=== PATIENT | male | born 1965 | race Caucasian/White ===

== ENCOUNTER 2021-12-30 10:30 | Inpatient (IN) ==
[2021-12-30] MEDS ORDERED: IOPAMIDOL 100 ML BOTTLE IV ONE (10:31)
[2021-12-30] MEDS ORDERED: IPRATROPIUM/ALBUTEROL 3 ML AMPUL.NEB NEB ONE ×3 (10:43→19:31)
--- NOTE | 2021-12-30 10:44 | Emergency Department Note ---
HPI General Chief complaint: Shortness of Breath/Dyspnea Stated complaint: shortness of breath Time Seen by Provider: 12/30/21 10:31 Source: EMS Mode of arrival: EMS Limitations: no limitations History of Present Illness HPI Narrative: Narrative: Patient is a 56-year-old male with a past medical history significant for COPD, pulmonary fibrosis who presents to the emergency department due to shortness of breath. EMS states that patient became acutely short of breath and increased baseline oxygen from 4 L to 8 L at home prior to calling for EMS. Upon their arrival patient was satting at 48% on 8 L of O2 via nasal cannula. Patient was tachypneic, tachycardic, and had an increased work of breathing. They gave patient a DuoNeb and Solu-Medrol prior to arrival. They also placed noninvasive positive pressure ventilation. Patient had significant improvement per EMS with these measures with decrease in respiratory rate and work of breathing, as well as increase in O2 sats to the 90s and up to 100% at times. Patient at this time endorses shortness of breath, but states that this has improved. He states that his had a sinus infection that he is worried that she passed to him. He denies any other symptoms currently. Related Data Home Medications Medication Instructions Recorded Confirmed cetirizine 10 mg capsule 10 mg PO QDAY 08/05/19 12/30/21 diphenhydramine HCl 25 mg tablet 25 mg PO QHS PRN Allergy Symptoms 12/05/21 12/30/21 (Benadryl Allergy) Previous Rx's Medication Instructions Recorded omeprazole 40 mg capsule,delayed 40 mg PO QDAY #90 caps 12/10/21 release umeclidinium 62.5 mcg-vilanterol 1 inh inhalation Q24H #60 ea 12/10/21 25 mcg/actuation powdr for inhalation (Anoro Ellipta) Allergies Allergy/AdvReac Type Severity Reaction Status Date / Time naproxen AdvReac Intermediate purple Verified 12/20/21 13:57 spots on face Review of Systems ROS ROS Narrative: Narrative: Limitations: ROS unobtainable due to patients medical condition [facility] Narrative Patient History Narrative: Narrative: Medical/Surgical/Family History All Active Problems (Updated 12/20/21 @ 14:53 by HAILEE Multani) H/O malignant neoplasm of colon (Chronic) Pulmonary fibrosis determined by high resolution computed tomography (Chronic) GERD with esophagitis (Chronic) Rico esophagus (Chronic) Bronchiectasis (Chronic) Hypoxemia (Chronic) Walking pneumonia (Chronic) SOB (shortness of breath) (Chronic) Tubulovillous adenoma (Chronic) Colon cancer (Chronic ~07/2014) Iron deficiency anemia (Chronic) Sinus congestion (Chronic) SOB (shortness of breath) on exertion (Chronic) COPD (chronic obstructive pulmonary disease) (Chronic) Eczema (Chronic) Elevated BP without diagnosis of hypertension (Chronic) Seasonal allergies (Chronic) Oxygen desaturation (Chronic) COVID-19 (Acute) Pneumonia due to COVID-19 virus (Acute) LLL pneumonia (Chronic) Medical History (Updated 12/20/21 @ 14:53 by HAILEE Multani) Rico esophagus Bronchiectasis Colon cancer (~07/2014) history of tubulovillous adenoma and colon carcinoma , removed 07/2014 COPD (chronic obstructive pulmonary disease) Eczema Elevated BP without diagnosis of hypertension GERD with esophagitis H/O malignant neoplasm of colon H/O: rheumatic fever Hypoxemia Iron deficiency anemia Oxygen desaturation 11/26/2020: 75-88% on oxygen today in clinic Pulmonary fibrosis determined by high resolution computed tomography Seasonal allergies Tubulovillous adenoma Surgical History History of colonoscopy (08/11/16) abnormal History of repair of hiatal hernia (~04/2018) bleeding ulcers History of tonsillectomy and adenoidectomy (~1969) S/P Clara fundoplication (without gastrostomy tube) procedure Family History Father PNA (pneumonia) Prostate cancer Mother Kidney failure Grandfather Cancer Daughter Hemiplegic migraine Ovarian cyst Social History Smoking Status: Unknown if ever smoked Alcohol Intake Frequency: holiday/special occasion only Substance Use: does not use Exam Narrative Narrative: Narrative: General Limitations: no limitations General appearance: Present alert and in no apparent distress; Absent anxious or appears intoxicated Head Head: Present atraumatic and normocephalic Eye Eye: Present PERRL and EOMI; Absent scleral icterus or nystagmus ENT ENT: Present mucous membranes moist; Absent nasal congestion Neck Neck: Present normal inspection, full ROM and trachea midline; Absent tenderness Chest Chest: Present normal inspection and symmetric chest wall rise; Absent tenderness Respiratory Respiratory: Present respiratory distress, rales/crackles, accessory muscle use and decreased breath sounds; Absent normal lung sounds bilaterally Cardiovascular Cardiovascular: Present normal rhythm, tachycardia and normal heart sounds Adbominal Abdominal: Present soft; Absent distention Extremities Extremities: Present normal inspection and full ROM; Absent tenderness Back Back: Present normal inspection and full ROM; Absent tenderness Neurological Neurological: Present alert, oriented X3, CN II-XII intact, normal gait and reflexes normal; Absent motor sensory deficit Psychiatric Psychiatric: Present normal affect and normal mood Skin Skin: Present warm (WNL), dry and normal color Course Vital Signs Vital signs: Vital Signs Temperature 96.8 F L 12/30/21 10:32 Pulse Rate 145 H 12/30/21 10:32 Respiratory Rate 32 H 12/30/21 10:32 Blood Pressure 157/128 12/30/21 10:32 Pulse Oximetry (%) 87 L 12/30/21 10:32 Oxygen Delivery Method 12/30/21 10:32 Temperature 96.8 F L 12/30/21 10:32 Pulse Rate 129 H 12/30/21 13:17 Respiratory Rate 40 H 12/30/21 13:17 Blood Pressure 117/77 12/30/21 13:11 Pulse Oximetry (%) 96 12/30/21 13:17 Oxygen Delivery Method 12/30/21 13:17 MDM MDM Narrative Medical decision making narrative: Narrative: Lab Data Result diagrams: 12/30/21 10:51 Labs: Lab Results 12/30/21 12/30/21 12/30/21 Range/Units 10:46 10:47 10:51 POC Hct 44.0 (41-55) D-Dimer 0.78 H (0.27-0.50) ug/mL POC VBG pH 7.36 (7.32-7.42) POC VBG pCO2 at Temp 47.7 (41-51) POC VBG pO2 54 H (25-40) POC VBG HCO3 27.1 (24-28) POC VBG Total CO2 29.0 (25-29) POC Venous O2 Sat 86.0 H (40-70) POC VBG Base Excess 2.0 (-2-2) VBG Lactic Acid 2.5 H (0.5-2) POC Sodium 141 (133-145) POC Potassium 4.0 (3.3-5.1) POC Chloride 102 (96-108) POC Total CO2 24.0 (22-30) POC BUN 8 (6-20) POC Creatinine 0.8 (0.6-1.2) POC Glucose 131 H (70-105) POC WB Ioniz Calcium 1.12 L (1.16-1.32) NT-Pro-B Natriuret Pep (<125.0) pg/mL POC Troponin I (0.02-0.08) 12/30/21 12/30/21 Range/Units 10:53 11:14 POC Hct (41-55) D-Dimer (0.27-0.50) ug/mL POC VBG pH (7.32-7.42) POC VBG pCO2 at Temp (41-51) POC VBG pO2 (25-40) POC VBG HCO3 (24-28) POC VBG Total CO2 (25-29) POC Venous O2 Sat (40-70) POC VBG Base Excess (-2-2) VBG Lactic Acid (0.5-2) POC Sodium (133-145) POC Potassium (3.3-5.1) POC Chloride (96-108) POC Total CO2 (22-30) POC BUN (6-20) POC Creatinine (0.6-1.2) POC Glucose (70-105) POC WB Ioniz Calcium (1.16-1.32) NT-Pro-B Natriuret Pep 282.7 H (<125.0) pg/mL POC Troponin I 0.01 L (0.02-0.08) ED POC Tests ED POC Tests: LANE - Influenza A Negative LANE - Influenza B Negative LANE - SARS Antigen Negative EKG Data EKG #1: EKG attestation: Yes I reviewed and interpreted this EKG. EKG results narrative: Sinus tachycardia with a rate of 144, left axis deviation, MN 116, QRS of 104, QTc of 463, T wave flattening in leads II, III, and aVF, and absence of ST elevation or depression. Discharge Plan Patient/Caregiver Discharge Instructions Follow up with: Liane Howell ARNP [Primary Care Provider] - Prescriptions: No Action umeclidinium 62.5 mcg-vilanterol 25 mcg/actuation powdr for inhalation 62.5-25 mcg/actuation blister with device 1 inh INHALATION Q24H Qty: 60 3RF Rx Instructions: 340B plan. omeprazole 40 mg capsule,delayed release(DR/EC) 40 mg PO QDAY Qty: 90 1RF cetirizine 10 mg capsule 10 mg PO QDAY Rx Instructions: qd diphenhydramine HCl [Benadryl Allergy] 25 mg tablet 25 mg PO QHS PRN (Reason: Allergy Symptoms)
[2021-12-30 10:52] LABS: POC Calcium, Ionized 1.12 (1.16-1.32); POC Creatinine 0.8 (0.6-1.2)
[2021-12-30] MEDS ORDERED: ALBUTEROL SULFATE 2.5 MG/3 ML NEBULIZER ONE (10:53)
--- NOTE | 2021-12-30 11:04 | XRay Report ---
HISTORY: Worsening shortness of breath, pulmonary fibrosis FINDINGS: There is severe inflammation and fibrosis throughout both lungs. There is a honeycomb pattern in the lung parenchyma. Superimposed upon the underlying idiopathic pulmonary fibrosis there is an active inflammatory component with vague areas of groundglass alveolar consolidation. The consolidation has become worse since prior chest x-ray done on 11/26/[address] on 10/29/20. Lung volumes are normal. There is no pleural effusion or pneumothorax. The heart size is normal. The emily are partially obscured by surrounding consolidation. IMPRESSION: Diffuse inflammation in both lungs superimposed upon underlying severe pulmonary fibrosis Interpreted and Authenticated by: Glenroy Beal 12/30/21
[2021-12-30] MEDS ORDERED: cefTRIAXone 2 GM in DEXTROSE 5% IN WATER 50 ML IV ONE (11:12)
[2021-12-30] MEDS ORDERED: 0.9 % SODIUM CHLORIDE 500 ML IV ONE (11:40)
[2021-12-30] MEDS ORDERED: cefTRIAXone 2 GM VIAL ONE (11:52)
[2021-12-30] MEDS ORDERED: 0.9 % SODIUM CHLORIDE 1,000 ML IV ONE (12:49)
[2021-12-30] MEDS ORDERED: ALBUTEROL SULFATE 5 MG/ML NEB SOLUTION BOTTLE NEB ONE (12:50)
[2021-12-30 14:33] LABS: Hematocrit 37.4 % (40.1-51.0); Hemoglobin 11.7 g/dL (13.7-17.5); Mean Corpuscular HGB Conc 31.3 g/dL (31.0-36.0); Mean Platelet Volume 10.2 fL (7.4-10.4); Platelet Count 323 K/mcL (140-440); RBC 4.45 M/mcL (4.63-6.08); Red Cell Distribution Width 13.1 % (11.5-14.5); WBC 25.4 K/mcL (4.5-11.0)
[2021-12-30 15:27] LABS: Band Neutrophils % 3 % (0-10); Hypochromasia FEW (None Seen); Lymphocytes % 1 % (15-49); Monocytes % (Manual) 1 % (1-12); Platelet Estimate NORMAL (Normal); RBC Morphology ABNORMAL (Normal); Segmented Neutrophils % 95 % (38-78)
--- NOTE | 2021-12-30 15:58 | Cat Scan Report ---
History: Shortness of breath, hypoxia, evaluate for pulmonary emboli TECHNIQUE: Following injection of intravenous nonionic contrast the chest was imaged during the pulmonary arterial phase. Sagittal, coronal and axial MIPS images were created. The radiation exposure was limited using dose reduction technology. FINDINGS: The pulmonary arteries are normal in caliber without evidence of emboli. Aorta is also normal in caliber with no aneurysm or dissection. Small amount of plaque is seen along the wall of the aorta and in the coronary arteries. Heart size is normal. Patient has severe honeycombing throughout both lungs. There are also groundglass alveolar opacities in a random distribution. The greatest involvement is in the superior segment of the left lower lobe and left upper lobe near the hilum. Numerous tiny calcified granulomata are present in the periphery of both lungs. No suspicious mass is seen. There is no lobar consolidation. No pleural effusion is present. There are a few reactive lymph nodes in the mediastinum. Largest is in the pretracheal retrocaval space and measures 1.3 cm. Small hiatus hernia is present. Comparison with the prior CT done on 10/29/20 shows the pulmonary fibrosis has progressed. IMPRESSION: Usual interstitial pneumonia with diffuse pulmonary fibrosis and superimposed mild active inflammation. This has become progressively worse since 10/29/20. No evidence of pulmonary emboli Dr. Newton was called with the report Interpreted and Authenticated by: Glenroy Beal 12/30/21
[2021-12-30] MEDS ORDERED: diphenhydrAMINE 25 MG CAPSULE PO PRN ×2 (16:31→19:45)
--- NOTE | 2021-12-30 16:42 | Internal Med History&Physical ---
HPI History of Present Illness Patient information: Note initiated : 12/30/21 at 4:37 pm Service Date, if different from initiated Date: [] Patient: Ned Fortune 56 y/o M admitted on for shortness of breath. Chief Complaint: [shortness of breath ] Chief complaint: shortness of breath History of present illness: Mr. Fortune is a 56 year old M history of COPD on home oxygen, pulmonary fibrosis, COVID-pneumonia in April 2021, colon cancer, presented with 3-day history of acute onset gradually worsening shortness of breath. Baseline oxygen requirement was 4 L at rest, 6 L during the day, and up to 8 L/min with any ac tivities. Since last night, patient have acute onset worsening of his degree of shortness of breath. He is also committing of productive cough but he is not sure the color of his sputum. He denies any chest pain palpitations or chest pressure. He denies any respiratory wheezings. He denies any subjective fever, chills, or diaphoresis. Patient has positive sick contact, negative recent travel. He is not vaccinated against COVID-pneumonia. Vital signs at ED presentation significant for tachycardia and tachypnea. Labs significant for leukocytosis with WBC 25. D-dimer also elevated but CT angiogram negative for any pulmonary embolism; it otherwise showing unusual interstitial pneumonia with diffuse pulmonary fibrosis and superimposed mild active inflammation's. This has become progressively worse since last study 1 year ago. Initial serum lactic acid 2.5, repeat 1.2. BNP 282, appropriate for age. Serum procalcitonin level was slightly elevated to 0.18. Negative for COVID-pneumonia. Negative for influenza A or B. Constitutional Constitutional: Absent chills, excessive sweating, fatigue, fever(s) or weakness EENT Eyes: Absent blurry vision, change in vision, loss of vision or other visual disturbances Ears: Absent decreased hearing or tinnitus Nose, mouth and throat: Absent abnormal hearing, dry mouth, headache(s), nasal congestion or sore throat Cardiovascular Cardiovascular: Absent chest pain, chest pain at rest, edema, irregular heart rhythm or palpatations Respiratory Respiratory: Present cough, dyspnea, dyspnea on exertion and excessive phlegm production; Absent wheezing Gastrointestinal Gastrointestinal: Absent abdominal pain, constipation, diarrhea, nausea or vomiting Musculoskeletal Musculoskeletal: Absent back pain, deformity, limited range of motion, muscle cramps, muscle weakness or numbness Integumentary Integumentary: Absent lesions, rash or wounds Neurological Neurological: Absent focal weakness, headache(s) or numbness Psychiatric Psychiatric: Absent anxiety, depression or hallucinations PFSH PFSH All Active Problems (Updated 12/30/21 @ 16:50 by Guille Grubbs MD) CAP (community acquired pneumonia) (Acute) COPD exacerbation (Acute) H/O malignant neoplasm of colon (Chronic) Pulmonary fibrosis determined by high resolution computed tomography (Chronic) GERD with esophagitis (Chronic) Rico esophagus (Chronic) Bronchiectasis (Chronic) Hypoxemia (Chronic) Walking pneumonia (Chronic) SOB (shortness of breath) (Chronic) Tubulovillous adenoma (Chronic) Colon cancer (Chronic ~07/2014) Iron deficiency anemia (Chronic) Sinus congestion (Chronic) SOB (shortness of breath) on exertion (Chronic) COPD (chronic obstructive pulmonary disease) (Chronic) Eczema (Chronic) Elevated BP without diagnosis of hypertension (Chronic) Seasonal allergies (Chronic) Oxygen desaturation (Chronic) COVID-19 (Acute) Pneumonia due to COVID-19 virus (Acute) LLL pneumonia (Chronic) Medical History (Updated 12/30/21 @ 16:50 by Guille Grubbs MD) Rico esophagus Bronchiectasis Colon cancer (~07/2014) history of tubulovillous adenoma and colon carcinoma , removed 07/2014 COPD (chronic obstructive pulmonary disease) Eczema Elevated BP without diagnosis of hypertension GERD with esophagitis H/O malignant neoplasm of colon H/O: rheumatic fever Hypoxemia Iron deficiency anemia Oxygen desaturation 11/26/2020: 75-88% on oxygen today in clinic Pulmonary fibrosis determined by high resolution computed tomography Seasonal allergies Tubulovillous adenoma Surgical History History of colonoscopy (08/11/16) abnormal History of repair of hiatal hernia (~04/2018) bleeding ulcers History of tonsillectomy and adenoidectomy (~1969) S/P Clara fundoplication (without gastrostomy tube) procedure Family History Father PNA (pneumonia) Prostate cancer Mother Kidney failure Grandfather Cancer Daughter Hemiplegic migraine Ovarian cyst Social History (Reviewed 12/20/21 @ 14:45 by DANNA Multani household members: spouse and family housing: house marital status: occupational status: retired 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 Has 2 children physical activity: none smoking status: Unknown if ever smoked alcohol intake frequency: holiday/special occasion only substance use type: does not use MEDS/ALLERGIES Home Medications and Allergies Home Medications Medication Instructions Recorded Confirmed Type cetirizine 10 mg capsule 10 mg PO QDAY 08/05/19 12/30/21 History diphenhydramine HCl 25 mg tablet 25 mg PO QHS PRN Allergy Symptoms 12/05/21 12/30/21 History (Benadryl Allergy) omeprazole 40 mg capsule,delayed 40 mg PO QDAY #90 caps 12/10/21 12/30/21 Rx release umeclidinium 62.5 mcg-vilanterol 1 inh inhalation Q24H #60 ea 12/10/21 12/30/21 Rx 25 mcg/actuation powdr for inhalation (Anoro Ellipta) Allergies Allergy/AdvReac Type Severity Reaction Status Date / Time naproxen AdvReac Intermediate purple Verified 12/20/21 13:57 spots on face EXAM Constitutional Vitals: Temp Pulse Resp BP Pulse Ox O2 Del Method 36.0 C L 120 H 31 H 129/71 99 12/30/21 10:32 12/30/21 16:02 12/30/21 16:02 12/30/21 16:02 12/30/21 16:02 12/30/21 13:17 General appearance: cooperative, moderate distress and thin Head Head exam: Present atraumatic and normocephalic Eye Eye exam: Present EOMI and PERRL ENT ENT exam: Present mucous membranes moist, normal exam and normal external ear exam Additional comments: BiPAP in place Neck Neck exam: Present normal inspection; Absent lymphadenopathy, tenderness or thyromegaly Respiratory Respiratory exam: Present accessory muscle use, decreased breath sounds, respiratory distress and rhonchi; Absent wheezes Cardiovascular Cardiovascular exam: Present tachycardia; Absent JVD GI/Abdominal GI/Abdominal exam: Present normal bowel sounds and soft; Absent organomegaly or tenderness Rectal Rectal exam: Present deferred Extremities Exam Extremities exam: Present full ROM, normal capillary refill and normal inspection; Absent tenderness Neurological Exam Neurological exam: Present alert, CN II-XII intact and oriented X3; Absent motor sensory deficit Psychiatric Psychiatric exam: Present normal affect and normal mood; Absent anxious or depressed Skin Skin exam: Present dry and intact DATA Data Completed and Pending Labs: Labs from last 24 hours 12/30/21 12/30/21 12/30/21 14:02 13:07 13:07 WBC 25.4 H RBC 4.45 L Hgb 11.7 L Hct 37.4 L POC Hct MCV 84.0 MCH 26.3 MCHC 31.3 RDW 13.1 Plt Count 323 MPV 10.2 Immature Gran % (Auto) Neut % (Auto) Lymph % (Auto) [place] % (Auto) Eos % (Auto) Baso % (Auto) Lymph # (Auto) [place] # (Auto) Eos # (Auto) Baso # (Auto) Seg Neutrophils % 95 H Band Neutrophils % 3 Lymphocytes % 1 L Monocytes % (Manual) 1 Immature Gran # Absolute Neutrophils Differential Comment Platelet Estimate Normal RBC Morphology Abnormal A Hypochromasia Few A D-Dimer POC VBG pH POC VBG pCO2 at Temp POC VBG pO2 POC VBG HCO3 POC VBG Total CO2 POC Venous O2 Sat POC VBG Base Excess VBG Lactic Acid 1.2 POC Sodium POC Potassium POC Chloride POC Total CO2 POC BUN POC Creatinine POC Glucose POC WB Ioniz Calcium NT-Pro-B Natriuret Pep Procalcitonin 0.18 H POC Troponin I 12/30/21 12/30/21 12/30/21 11:14 10:53 10:51 WBC RBC Hgb Hct POC Hct MCV MCH MCHC RDW Plt Count MPV Immature Gran % (Auto) Neut % (Auto) Lymph % (Auto) [place] % (Auto) Eos % (Auto) Baso % (Auto) Lymph # (Auto) [place] # (Auto) Eos # (Auto) Baso # (Auto) Seg Neutrophils % Band Neutrophils % Lymphocytes % Monocytes % (Manual) Immature Gran # Absolute Neutrophils Differential Comment Platelet Estimate RBC Morphology Hypochromasia D-Dimer 0.78 H POC VBG pH POC VBG pCO2 at Temp POC VBG pO2 POC VBG HCO3 POC VBG Total CO2 POC Venous O2 Sat POC VBG Base Excess VBG Lactic Acid POC Sodium POC Potassium POC Chloride POC Total CO2 POC BUN POC Creatinine POC Glucose POC WB Ioniz Calcium NT-Pro-B Natriuret Pep 282.7 H Procalcitonin POC Troponin I 0.01 L 12/30/21 12/30/21 12/30/21 10:51 10:47 10:46 WBC TNP RBC TNP Hgb TNP Hct TNP POC Hct 44.0 MCV TNP MCH TNP MCHC TNP RDW TNP Plt Count TNP MPV TNP Immature Gran % (Auto) TNP Neut % (Auto) TNP Lymph % (Auto) TNP [place] % (Auto) TNP Eos % (Auto) TNP Baso % (Auto) TNP Lymph # (Auto) TNP [place] # (Auto) TNP Eos # (Auto) TNP Baso # (Auto) TNP Seg Neutrophils % Band Neutrophils % Lymphocytes % Monocytes % (Manual) Immature Gran # TNP Absolute Neutrophils TNP Differential Comment TNP Platelet Estimate RBC Morphology Hypochromasia D-Dimer POC VBG pH 7.36 POC VBG pCO2 at Temp 47.7 POC VBG pO2 54 H POC VBG HCO3 27.1 POC VBG Total CO2 29.0 POC Venous O2 Sat 86.0 H POC VBG Base Excess 2.0 VBG Lactic Acid 2.5 H POC Sodium 141 POC Potassium 4.0 POC Chloride 102 POC Total CO2 24.0 POC BUN 8 POC Creatinine 0.8 POC Glucose 131 H POC WB Ioniz Calcium 1.12 L NT-Pro-B Natriuret Pep Procalcitonin POC Troponin I A/P Assessment and plan (1) COPD exacerbation: Status: Acute (2) CAP (community acquired pneumonia): Status: Acute (3) GERD with esophagitis: Status: Chronic (4) Pulmonary fibrosis determined by high resolution computed tomography: Status: Chronic Narrative A/P Narrative: Assessment and Plans: 1. Respiratory failure: DDx: Natural progression of pulmonary fibrosis vs. COPD exacerbation vs. community acquired pneumonia Inpatient ICU with telemetry BiPAP ABG Serial lactic acid Procalcitonin level Blood culture Sputum culture cbc w/ auto diff in the morning to trend WBC Vancomycin Zosyn DuoNEB NEB scheduled Albuterol NEB PRN wheezing Robitussin PRN cough Solu-Medrol Physical therapy 2. GERD: Continue oral PPI from home regimen GI ppx: Continue oral PPI from home regimen DVT ppx: Lovenox Code status: DNR Prognosis: guarded Disposition: inpatient ICU; PT Critical Care Time: 1hr Time Spent With Patient Time: Total time spent is greater than 50% in coordination of care (as documented) at patient's floor/unit and/or counseling patient: Total time spent with greater than 50% in coordination of care (as documented) at patient's floor/unit and/or counseling patient:: 50 - 70 minutes
--- NOTE | 2021-12-30 16:45 | Emergency Department Note ---
HPI General Chief complaint: Shortness of Breath/Dyspnea Stated complaint: shortness of breath Time Seen by Provider: 12/30/21 10:31 Source: EMS Mode of arrival: EMS Limitations: no limitations History of Present Illness HPI Narrative: Narrative: Patient is a 56-year-old male with a past medical history significant for COPD, pulmonary fibrosis who presents to the emergency department due to shortness of breath. EMS states that patient became acutely short of breath and increased baseline oxygen from 4 L to 8 L at home prior to calling for EMS. Upon their arrival patient was satting at 48% on 8 L of O2 via nasal cannula. Patient was tachypneic, tachycardic, and had an increased work of breathing. They gave patient a DuoNeb and Solu-Medrol prior to arrival. They also placed noninvasive positive pressure ventilation. Patient had significant improvement per EMS with these measures with decrease in respiratory rate and work of breathing, as well as increase in O2 sats to the 90s and up to 100% at times. Patient at this time endorses shortness of breath, but states that this has improved. He states that his had a sinus infection that he is worried that she passed to him. He denies any other symptoms currently. Related Data Home Medications Medication Instructions Recorded Confirmed cetirizine 10 mg capsule 10 mg PO QDAY 08/05/19 12/30/21 diphenhydramine HCl 25 mg tablet 25 mg PO QHS PRN Allergy Symptoms 12/05/21 12/30/21 (Benadryl Allergy) Previous Rx's Medication Instructions Recorded omeprazole 40 mg capsule,delayed 40 mg PO QDAY #90 caps 12/10/21 release umeclidinium 62.5 mcg-vilanterol 1 inh inhalation Q24H #60 ea 12/10/21 25 mcg/actuation powdr for inhalation (Anoro Ellipta) Allergies Allergy/AdvReac Type Severity Reaction Status Date / Time naproxen AdvReac Intermediate purple Verified 12/20/21 13:57 spots on face Review of Systems ROS ROS Narrative: Narrative: All systems ED: reviewed and negative except as stated. [facility] Narrative Patient History Narrative: Narrative: Medical/Surgical/Family History All Active Problems (Updated 12/30/21 @ 17:38 by Xavi Newton MD) SOB (shortness of breath) (Acute) Respiratory failure (Acute) Acute and chronic respiratory failure (Acute) CAP (community acquired pneumonia) (Acute) COPD exacerbation (Acute) H/O malignant neoplasm of colon (Chronic) Pulmonary fibrosis determined by high resolution computed tomography (Chronic) GERD with esophagitis (Chronic) Rico esophagus (Chronic) Bronchiectasis (Chronic) Hypoxemia (Chronic) Walking pneumonia (Chronic) SOB (shortness of breath) (Chronic) Tubulovillous adenoma (Chronic) Colon cancer (Chronic ~07/2014) Iron deficiency anemia (Chronic) Sinus congestion (Chronic) SOB (shortness of breath) on exertion (Chronic) COPD (chronic obstructive pulmonary disease) (Chronic) Eczema (Chronic) Elevated BP without diagnosis of hypertension (Chronic) Seasonal allergies (Chronic) Oxygen desaturation (Chronic) COVID-19 (Acute) Pneumonia due to COVID-19 virus (Acute) LLL pneumonia (Chronic) Medical History (Updated 12/30/21 @ 17:38 by Xavi Newton MD) Rico esophagus Bronchiectasis Colon cancer (~07/2014) history of tubulovillous adenoma and colon carcinoma , removed 07/2014 COPD (chronic obstructive pulmonary disease) Eczema Elevated BP without diagnosis of hypertension GERD with esophagitis H/O malignant neoplasm of colon H/O: rheumatic fever Hypoxemia Iron deficiency anemia Oxygen desaturation 11/26/2020: 75-88% on oxygen today in clinic Pulmonary fibrosis determined by high resolution computed tomography Seasonal allergies Tubulovillous adenoma Surgical History History of colonoscopy (08/11/16) abnormal History of repair of hiatal hernia (~04/2018) bleeding ulcers History of tonsillectomy and adenoidectomy (~1969) S/P Clara fundoplication (without gastrostomy tube) procedure Family History Father PNA (pneumonia) Prostate cancer Mother Kidney failure Grandfather Cancer Daughter Hemiplegic migraine Ovarian cyst Social History Smoking Status: Unknown if ever smoked Alcohol Intake Frequency: holiday/special occasion only Substance Use: does not use Exam Narrative Narrative: Narrative: General Limitations: no limitations General appearance: Present alert and in distress; Absent anxious or appears intoxicated Head Head: Present atraumatic and normocephalic Eye Eye: Present PERRL and EOMI; Absent scleral icterus or nystagmus ENT ENT: Present mucous membranes moist; Absent nasal congestion Neck Neck: Present full ROM; Absent tenderness Chest Chest: Present normal inspection and symmetric chest wall rise; Absent tenderness Respiratory Respiratory: Present normal lung sounds bilaterally, respiratory distress, rales/crackles, wheezes, accessory muscle use and decreased breath sounds Cardiovascular Cardiovascular: Present regular rate, normal rhythm and normal heart sounds Adbominal Abdominal: Present soft and normal bowel sounds; Absent distention or tenderness Extremities Extremities: Present normal inspection and full ROM; Absent tenderness Back Back: Present normal inspection and full ROM; Absent tenderness Neurological Neurological: Present alert and oriented X3 Psychiatric Psychiatric: Present normal affect and normal mood Skin Skin: Present warm (WNL), dry and normal color Course Vital Signs Vital signs: Vital Signs Temperature 96.8 F L 12/30/21 10:32 Pulse Rate 145 H 12/30/21 10:32 Respiratory Rate 32 H 12/30/21 10:32 Blood Pressure 157/128 12/30/21 10:32 Pulse Oximetry (%) 87 L 12/30/21 10:32 Oxygen Delivery Method 12/30/21 10:32 Temperature 96.8 F L 12/30/21 10:32 Pulse Rate 121 H 12/30/21 17:30 Respiratory Rate 39 H 12/30/21 17:30 Blood Pressure 104/90 12/30/21 17:30 Pulse Oximetry (%) 100 12/30/21 17:30 Oxygen Delivery Method 12/30/21 13:17 [facility] Narrative Medical decision making narrative: Narrative: Patient is a 56-year-old male with a past medical history significant for COPD and pulmonary fibrosis who presents to the emergency department due to shortness of breath. Differential diagnoses include ACS, COPD exacerbation, worsening pulmonary fibrosis, pulmonary embolus, and pneumonia. Patient does not have a history of CHF, but new onset CHF is possible. Patient does not likely have pneumothorax given equal bilateral breath sounds. Patient's labs are significant for an elevated D-dimer, elevated white blood cell count at 25, and mildly elevated BNP. CT scan has been performed and does not demonstrate pulmonary embolus, but does demonstrate significant worsening of pulmonary fibrosis with an inflammatory component. I have spoken to patient about this. I also spoke to Dr. Grubbs who agreed to see and evaluate patient for admission. Lab Data Result diagrams: 12/30/21 14:02 Labs: Lab Results 12/30/21 12/30/21 12/30/21 Range/Units 10:46 10:47 10:51 WBC TNP RBC TNP Hgb TNP Hct TNP POC Hct 44.0 (41-55) MCV TNP MCH TNP MCHC TNP RDW TNP Plt Count TNP MPV TNP Immature Gran % (Auto) TNP Neut % (Auto) TNP Lymph % (Auto) TNP [place] % (Auto) TNP Eos % (Auto) TNP Baso % (Auto) TNP Lymph # (Auto) TNP [place] # (Auto) TNP Eos # (Auto) TNP Baso # (Auto) TNP Seg Neutrophils % (38-78) % Band Neutrophils % (0-10) % Lymphocytes % (15-49) % Monocytes % (Manual) (1-12) % Immature Gran # TNP Absolute Neutrophils TNP Differential Comment TNP Platelet Estimate (Normal) RBC Morphology (Normal) Hypochromasia (None Seen) D-Dimer (0.27-0.50) ug/mL POC VBG pH 7.36 (7.32-7.42) POC VBG pCO2 at Temp 47.7 (41-51) POC VBG pO2 54 H (25-40) POC VBG HCO3 27.1 (24-28) POC VBG Total CO2 29.0 (25-29) POC Venous O2 Sat 86.0 H (40-70) POC VBG Base Excess 2.0 (-2-2) VBG Lactic Acid 2.5 H (0.5-2) POC Sodium 141 (133-145) POC Potassium 4.0 (3.3-5.1) POC Chloride 102 (96-108) POC Total CO2 24.0 (22-30) POC BUN 8 (6-20) POC Creatinine 0.8 (0.6-1.2) POC Glucose 131 H (70-105) POC WB Ioniz Calcium 1.12 L (1.16-1.32) NT-Pro-B Natriuret Pep (<125.0) pg/mL Procalcitonin (<0.10) ng/mL POC Troponin I (0.02-0.08) 12/30/21 12/30/21 12/30/21 Range/Units 10:51 10:53 11:14 WBC RBC Hgb Hct POC Hct (41-55) MCV MCH MCHC RDW Plt Count MPV Immature Gran % (Auto) Neut % (Auto) Lymph % (Auto) [place] % (Auto) Eos % (Auto) Baso % (Auto) Lymph # (Auto) [place] # (Auto) Eos # (Auto) Baso # (Auto) Seg Neutrophils % (38-78) % Band Neutrophils % (0-10) % Lymphocytes % (15-49) % Monocytes % (Manual) (1-12) % Immature Gran # Absolute Neutrophils Differential Comment Platelet Estimate (Normal) RBC Morphology (Normal) Hypochromasia (None Seen) D-Dimer 0.78 H (0.27-0.50) ug/mL POC VBG pH (7.32-7.42) POC VBG pCO2 at Temp (41-51) POC VBG pO2 (25-40) POC VBG HCO3 (24-28) POC VBG Total CO2 (25-29) POC Venous O2 Sat (40-70) POC VBG Base Excess (-2-2) VBG Lactic Acid (0.5-2) POC Sodium (133-145) POC Potassium (3.3-5.1) POC Chloride (96-108) POC Total CO2 (22-30) POC BUN (6-20) POC Creatinine (0.6-1.2) POC Glucose (70-105) POC WB Ioniz Calcium (1.16-1.32) NT-Pro-B Natriuret Pep 282.7 H (<125.0) pg/mL Procalcitonin (<0.10) ng/mL POC Troponin I 0.01 L (0.02-0.08) 12/30/21 12/30/21 12/30/21 Range/Units 13:07 13:07 14:02 WBC 25.4 H RBC 4.45 L Hgb 11.7 L Hct 37.4 L POC Hct (41-55) MCV 84.0 MCH 26.3 MCHC 31.3 RDW 13.1 Plt Count 323 MPV 10.2 Immature Gran % (Auto) Neut % (Auto) Lymph % (Auto) [place] % (Auto) Eos % (Auto) Baso % (Auto) Lymph # (Auto) [place] # (Auto) Eos # (Auto) Baso # (Auto) Seg Neutrophils % 95 H (38-78) % Band Neutrophils % 3 (0-10) % Lymphocytes % 1 L (15-49) % Monocytes % (Manual) 1 (1-12) % Immature Gran # Absolute Neutrophils Differential Comment Platelet Estimate Normal (Normal) RBC Morphology Abnormal A (Normal) Hypochromasia Few A (None Seen) D-Dimer (0.27-0.50) ug/mL POC VBG pH (7.32-7.42) POC VBG pCO2 at Temp (41-51) POC VBG pO2 (25-40) POC VBG HCO3 (24-28) POC VBG Total CO2 (25-29) POC Venous O2 Sat (40-70) POC VBG Base Excess (-2-2) VBG Lactic Acid 1.2 (0.5-2) POC Sodium (133-145) POC Potassium (3.3-5.1) POC Chloride (96-108) POC Total CO2 (22-30) POC BUN (6-20) POC Creatinine (0.6-1.2) POC Glucose (70-105) POC WB Ioniz Calcium (1.16-1.32) NT-Pro-B Natriuret Pep (<125.0) pg/mL Procalcitonin 0.18 H (<0.10) ng/mL POC Troponin I (0.02-0.08) ED POC Tests ED POC Tests: LANE - Influenza A Negative LANE - Influenza B Negative LANE - SARS Antigen Negative Discharge Plan Patient/Caregiver Discharge Instructions Pt seen by TAILER OUT/PA only: No Clinical Impression: SOB (shortness of breath), Respiratory failure Patient Disposition: Xfer As Inpt ([facility]) Follow up with: Liane Howell ARNP [Primary Care Provider] - Prescriptions: No Action umeclidinium 62.5 mcg-vilanterol 25 mcg/actuation powdr for inhalation 62.5-25 mcg/actuation blister with device 1 inh INHALATION Q24H Qty: 60 3RF Rx Instructions: 340B plan. omeprazole 40 mg capsule,delayed release(DR/EC) 40 mg PO QDAY Qty: 90 1RF cetirizine 10 mg capsule 10 mg PO QDAY Rx Instructions: qd diphenhydramine HCl [Benadryl Allergy] 25 mg tablet 25 mg PO QHS PRN (Reason: Allergy Symptoms)
[2021-12-30] MEDS: UMECLIDINIUM INH SCH (17:45)
[2021-12-30] MEDS: VILANTEROL INH SCH (17:45)
[2021-12-30] MEDS ORDERED: METOPROLOL TARTRATE 5 MG/5 ML VIAL IV PRN (18:16)
[2021-12-30] MEDS ORDERED: VANCOMYCIN PER PHARMACY IV SCH (18:16)
[2021-12-30] MEDS ORDERED: ALBUTEROL SULFATE 2.5 MG/3 ML NEBULIZER NEB PRN (18:16)
[2021-12-30] MEDS ORDERED: ACETAMINOPHEN 325 MG TABLET PO PRN (18:16)
[2021-12-30] MEDS ORDERED: ONDANSETRON 4 MG/2 ML VIAL IV PRN (18:16)
[2021-12-30] MEDS: IPRATROPIUM/ALBUTEROL 3 ML AMPUL.NEB NEB SCH ×2 (19:40→23:15)
[2021-12-30] MEDS: 0.9 % SODIUM CHLORIDE 10 ML SYRINGE IV SCH (20:26)
[2021-12-30] MEDS: VANCOMYCIN 1,000 MG in 0.9 % SODIUM CHLORIDE 250 ML IV SCH (20:26)
[2021-12-30] MEDS: PIPERACILLIN SODIUM/TAZOBACTAM 3.375 GM in DEXTROSE 5% IN WATER 50 ML IV SCH ×2 (20:26→23:49)
[2021-12-30] MEDS: DOCUSATE SODIUM 100 MG CAPSULE PO SCH (23:01)
[2021-12-30] MEDS: methylPREDNISolone SOD SUCC 125 MG/2 ML VIAL IV SCH (23:49)
[2021-12-30] MEDS: LORazepam 2 MG/ML VIAL IV PRN (23:50)
[2021-12-31] MEDS: IPRATROPIUM/ALBUTEROL 3 ML AMPUL.NEB NEB SCH ×6 (04:34→23:05)
[2021-12-31] MEDS: methylPREDNISolone SOD SUCC 125 MG/2 ML VIAL IV SCH ×3 (05:35→21:21)
[2021-12-31] MEDS: 0.9 % SODIUM CHLORIDE 10 ML SYRINGE IV SCH ×3 (05:36→20:09)
[2021-12-31] MEDS: PIPERACILLIN SODIUM/TAZOBACTAM 3.375 GM in DEXTROSE 5% IN WATER 50 ML IV SCH ×3 (07:34→17:38)
[2021-12-31] MEDS: OMEPRAZOLE 20 MG CAPSULE PO SCH (07:35)
[2021-12-31 08:11] LABS: Basophils # (Auto) 0.05 K/mcL (0.00-0.30); Basophils % (Auto) 0.2 % (0.0-2.0); Eosinophils # (Auto) 0 K/mcL (0.00-0.70); Eosinophils % (Auto) 0 % (0.0-7.0); Hemoglobin 11.4 g/dL (13.7-17.5); Lymphocytes # (Auto) 0.82 K/mcL (1.50-4.80); Lymphocytes % (Auto) 2.9 % (15.5-49.0); Mean Cell Volume 86.2 fL (80.0-100.0); Mean Corpuscular HGB Conc 30.8 g/dL (31.0-36.0); Mean Platelet Volume 10.9 fL (7.4-10.4); Monocytes # (Auto) 0.43 K/mcL (0.10-0.90); Monocytes % (Auto) 1.5 % (1.0-12.0); Neutrophils % (Auto) 94.7 % (38.0-78.0); Platelet Count 345 K/mcL (140-440); RBC 4.29 M/mcL (4.63-6.08); Red Cell Distribution Width 13.5 % (11.5-14.5); WBC 28.2 K/mcL (4.5-11.0)
[2021-12-31 08:17] LABS: ALT/SGPT 10 U/L (<40); AST/SGOT 16 U/L (<40); Albumin 3.2 gm/dL (3.2-5.2); Albumin/Globulin Ratio 0.8 (1.0-2.3); Alkaline Phosphatase 105 U/L (39-117); Bilirubin,Total 0.2 mg/dL (0.1-1.0); Blood Urea Nitrogen 10 mg/dL (6-20); Calcium 9.4 mg/dL (8.6-10.4); Carbon Dioxide 26 mmol/L (22-30); Chloride 103 mmol/L (96-108); Glomerular Filtration Rate 98; Glucose 126 mg/dL (70-105)
[2021-12-31] MEDS: SENNOSIDES 1 TABLET PO SCH (08:27)
[2021-12-31] MEDS: DOCUSATE SODIUM 100 MG CAPSULE PO SCH ×2 (08:28→20:10)
[2021-12-31] MEDS: VILANTEROL INH SCH (08:28)
[2021-12-31] MEDS: ENOXAPARIN 40 MG/0.4 ML SYRINGE SQ SCH (08:28)
[2021-12-31] MEDS: UMECLIDINIUM INH SCH (08:28)
[2021-12-31] MEDS: CETIRIZINE 10 MG TABLET PO SCH (08:31)
[2021-12-31] MEDS: VANCOMYCIN 1,000 MG in 0.9 % SODIUM CHLORIDE 250 ML IV SCH ×2 (08:44→20:08)
[2021-12-31] MEDS ORDERED: SENNOSIDES 8.8 MG/5 ML ML PT SCH (09:00)
--- NOTE | 2021-12-31 11:26 | Internal Med Progress Note ---
SUBJECTIVE Subjective Patient information: Note initiated : 12/31/21 at 11:22 am Service Date, if different from initiated Date: [] Patient: Ned Fortune 56 y/o M admitted on 12/30/21 for shortness of breath. Chief Complaint: [] Interval history: Mr. Fortune is a 56 year old M history of COPD on home oxygen, pulmonary fibrosis, COVID-pneumonia in April 2021, colon cancer, presented with 3-day history of acute onset gradually worsening shortness of breath. Baseline oxygen requirement was 4 L at rest, 6 L during the day, and up to 8 L/min with any activities. Since last night, patient have acute onset worsening of his degree of shortness of breath. He is also committing of productive cough but he is not sure the color of his sputum. He denies any chest pain palpitations or chest pressure. He denies any respiratory wheezings. He denies any subjective fever, chills, or diaphoresis. Patient has positive sick contact, negative recent travel. He is not vaccinated against COVID-pneumonia. Vital signs at ED presentation significant for tachycardia and tachypnea. Labs significant for leukocytosis with WBC 25. D-dimer also elevated but CT angiogram negative for any pulmonary embolism; it otherwise showing unusual interstitial pneumonia with diffuse pulmonary fibrosis and superimposed mild active inflammation's. This has become progressively worse since last study 1 year ago. Initial serum lactic acid 2.5, repeat 1.2. BNP 282, appropriate for age. Serum procalcitonin level was slightly elevated to 0.18. Negative for COVID-pneumonia. Negative for influenza A or B. 12/31: BiPAP being switched off as of this morning. He is currently on high flow oxygen 9 L/min. Blood culture/sputum cultures no growth to date. WBC 28.2. Patient is experiencing improving degree of shortness of breath. He is coming of cough. He denies any wheezing. He denies any chest pain or pressure. He denies any fever chills or diaphoresis. Continue to titrate oxygen therapy. Continue Solu-Medrol and bronchodilators for COPD exacerbations. Continued broad-spectrum antibiotics therapy for pneumonia. Continue physical therapy. Constitutional Vitals: Vital Signs Temp Pulse Resp BP Pulse Ox O2 Del Method O2 Flow Rate 36.5 C 102 H 33 H 107/80 91 10 12/31/21 08:00 12/31/21 11:11 12/31/21 11:11 12/31/21 11:11 12/31/21 11:11 12/31/21 07:54 12/31/21 11:11 Period Temp Pulse Resp BP Sys/Ashraf Pulse Ox O2 Del Method O2 Flow Rate Last 24 Hr 36.4 C-37.3 C 84-144 24-47 84-129/25-100 84-100 BiPAP-BiPAP 7-94 Intake and Output 12/30/21 12/31/21 12/31/21 21:59 05:59 13:59 Intake Total 1050 50 660 Output Total 275 325 Balance 775 -275 660 Weight 61.507 kg Intake & Output: Intake & Output 12/30/21 12/31/21 12/31/21 21:59 05:59 13:59 Intake Total 1050 50 660 Output Total 275 325 Balance 775 -275 660 Weight 61.507 kg Intake: IV 1050 50 300 Sodium Chloride 0.9% 1,000 ml @ 1000 Wide Open IV BOLUS ONE Rx#: [id number] Zosyn 3.375 gm In Dextrose 5% 50 50 50 in Water 50 ml @ 100 mls/hr IV Q6H [facility] Rx#:[id number] Vancomycin 1,000 mg In Sodium 0 250 Chloride 0.9% 250 ml @ 250 mls/ hr IV Q12H [facility] Rx#:[id number] Oral 360 Output: Void Amount 275 325 Other: Meal sandwhich fruit cups. Breakfast Percent of Meal Consumed 50% 75% Feeding Ability Independent Independent Urine Appearance Clear Clear Urine Color Yellow Pale Urine Odor Normal General appearance: cooperative, no acute distress and thin Head Head exam: Present atraumatic and normal inspection Eye Eye exam: Present normal appearance ENT ENT exam: Present mucous membranes moist, normal exam and normal external ear exam Additional comments: high flow oxygen Neck Neck exam: Present normal inspection Respiratory Respiratory exam: Present rhonchi Cardiovascular Cardiovascular exam: Present normal rate and rhythm GI/Abdominal GI/Abdominal exam: Present normal bowel sounds Back Exam Back exam: Present normal inspection Neurological Exam Neurological exam: Present alert and oriented X3 Skin Skin exam: Present intact and warm OBJ DATA Labs CBC & Chem 7: 12/31/21 04:51 12/31/21 04:50 Labs: Abnormal Lab Results 12/31/21 12/31/21 12/30/21 04:51 04:50 14:02 WBC 28.2 H 25.4 H RBC 4.29 L 4.45 L Hgb 11.4 L 11.7 L Hct 37.0 L 37.4 L MCHC 30.8 L MPV 10.9 H Immature Gran % (Auto) 0.7 H Neut % (Auto) 94.7 H Lymph % (Auto) 2.9 L Lymph # (Auto) 0.82 L Seg Neutrophils % 95 H Lymphocytes % 1 L Immature Gran # 0.19 H Absolute Neutrophils 26.67 H RBC Morphology Abnormal A Hypochromasia Few A D-Dimer POC VBG pO2 POC Venous O2 Sat VBG Lactic Acid Glucose 126 H POC Glucose POC WB Ioniz Calcium NT-Pro-B Natriuret Pep Globulin 4.0 H Albumin/Globulin Ratio 0.8 L Procalcitonin POC Troponin I 12/30/21 12/30/21 12/30/21 13:07 11:14 10:53 WBC RBC Hgb Hct MCHC MPV Immature Gran % (Auto) Neut % (Auto) Lymph % (Auto) Lymph # (Auto) Seg Neutrophils % Lymphocytes % Immature Gran # Absolute Neutrophils RBC Morphology Hypochromasia D-Dimer POC VBG pO2 POC Venous O2 Sat VBG Lactic Acid Glucose POC Glucose POC WB Ioniz Calcium NT-Pro-B Natriuret Pep 282.7 H Globulin Albumin/Globulin Ratio Procalcitonin 0.18 H POC Troponin I 0.01 L 12/30/21 12/30/21 12/30/21 10:51 10:47 10:46 WBC RBC Hgb Hct MCHC MPV Immature Gran % (Auto) Neut % (Auto) Lymph % (Auto) Lymph # (Auto) Seg Neutrophils % Lymphocytes % Immature Gran # Absolute Neutrophils RBC Morphology Hypochromasia D-Dimer 0.78 H POC VBG pO2 54 H POC Venous O2 Sat 86.0 H VBG Lactic Acid 2.5 H Glucose POC Glucose 131 H POC WB Ioniz Calcium 1.12 L NT-Pro-B Natriuret Pep Globulin Albumin/Globulin Ratio Procalcitonin POC Troponin I Meds: Medications Acetaminophen (Acetaminophen 325 Mg Tablet) 650 mg PO Q4-6HP PRN; Protocol PRN Reason: Per Pain Protocol/Fever > 101 Albuterol Sulfate (Albuterol Sulfate 2.5 Mg/3 Ml Nebulizer) 2.5 mg NEB Q4HRT PRN PRN Reason: Wheezing Albuterol/Ipratropium (Ipratropium/Albuterol 3 Ml Ampul.Neb) 3 ml NEB Q4HRT [facility] Last Admin: 12/31/21 07:12 Dose: 3 ml Cetirizine HCl (Cetirizine 10 Mg Tablet) 10 mg PO QDAY [facility] Last Admin: 12/31/21 08:31 Dose: 10 mg Diphenhydramine HCl (Diphenhydramine 25 Mg Capsule) 25 mg PO HSP PRN PRN Reason: Allergy Symptoms Docusate Sodium (Docusate Sodium 100 Mg Capsule) 100 mg PO BID [facility] Last Admin: 12/31/21 08:28 Dose: 100 mg Enoxaparin Sodium (Enoxaparin 40 Mg/0.4 Ml Syringe) 40 mg SQ DAILY [facility] Last Admin: 12/31/21 08:28 Dose: 40 mg Guaifenesin (Guaifenesin/Dextromethorphan Oral Alexus) 10 ml PO Q4HP PRN PRN Reason: Cough Piperacillin Sod/Tazobactam (Sod 3.375 gm/ Dextrose) 50 mls @ 100 mls/hr IV Q6H [facility]; Protocol Last Infusion: 12/31/21 08:12 Dose: Infused Vancomycin HCl 1,000 mg/ (Sodium Chloride) 250 mls @ 250 mls/hr IV Q12H [facility] Last Infusion: 12/31/21 09:49 Dose: Infused Lorazepam (Lorazepam 2 Mg/Ml Vial) 1 mg IV Q2HP PRN PRN Reason: ANXIETY/SEDATION Last Admin: 12/30/21 23:50 Dose: 1 mg Methylprednisolone Sodium Succinate (Methylprednisolone Sod Succ 125 Mg/2 Ml Vial) 125 mg IV Q8 [facility] Last Admin: 12/31/21 05:35 Dose: 125 mg Metoprolol Tartrate (Metoprolol Tartrate 5 Mg/5 Ml Vial) 5 mg IV Q5M PRN PRN Reason: Tachyarrhythmias Omeprazole (Omeprazole 20 Mg Capsule) 40 mg PO QAMAC [facility] Last Admin: 12/31/21 07:35 Dose: 40 mg Ondansetron HCl (Ondansetron 4 Mg/2 Ml Vial) 4 mg IV Q4-6HP PRN; Protocol PRN Reason: Nausea And Vomiting Umeclidinium- Vilanterol [Anoro Ellipta] 62.5-25mg 1 dose INH Q24H [facility] Last Admin: 12/31/21 08:28 Dose: 1 dose Senna (Sennosides 1 Tablet) 1 tab PO DAILY [facility] Last Admin: 12/31/21 08:27 Dose: 1 tab Sodium Chloride (0.9 % Sodium Chloride 10 Ml Syringe) 10 ml IV Q8 [facility] Last Admin: 12/31/21 05:36 Dose: 10 ml Vancomycin HCl (Vancomycin Per Pharmacy) 1 order IV UD [facility]; Protocol A/P Assessment and plan (1) COPD exacerbation: Status: Acute (2) CAP (community acquired pneumonia): Status: Acute (3) GERD with esophagitis: Status: Chronic (4) Pulmonary fibrosis determined by high resolution computed tomography: Status: Chronic Narrative A/P Narrative: Assessment and Plans: 1. Respiratory failure: DDx: Natural progression of pulmonary fibrosis vs. COPD exacerbation vs. community acquired pneumonia Inpatient ICU with telemetry BiPAP stands by, currently on high flow oxygen therapy ABG Serial lactic acid Procalcitonin level Blood culture, no growth to date. Sputum culture, no growth to date. cbc w/ auto diff in the morning to trend WBC Vancomycin Zosyn DuoNEB NEB scheduled Albuterol NEB PRN wheezing Robitussin PRN cough Solu-Medrol Physical therapy 2. GERD: Continue oral PPI from home regimen GI ppx: Continue oral PPI from home regimen DVT ppx: Lovenox Code status: DNR Prognosis: guarded Disposition: inpatient ICU; PT Critical Care Time: 30min Time Spent With Patient Time: Total time spent is greater than 50% in coordination of care (as documented) at patient's floor/unit and/or counseling patient: Total time spent with greater than 50% in coordination of care (as documented) at patient's floor/unit and/or counseling patient:: 35 - 50 minutes
[2021-12-31] MEDS: guaiFENesin/DEXTROMETHORPHAN ORAL SOL PO PRN (19:32)
[2021-12-31] MEDS: LORazepam 2 MG/ML VIAL IV PRN (22:50)
[2022-01-01] MEDS: PIPERACILLIN SODIUM/TAZOBACTAM 3.375 GM in DEXTROSE 5% IN WATER 50 ML IV SCH ×5 (01:05→23:53)
[2022-01-01] MEDS: LORazepam 2 MG/ML VIAL IV PRN ×2 (02:18→22:59)
[2022-01-01] MEDS: IPRATROPIUM/ALBUTEROL 3 ML AMPUL.NEB NEB SCH ×6 (02:20→23:12)
[2022-01-01] MEDS: 0.9 % SODIUM CHLORIDE 10 ML SYRINGE IV SCH ×3 (05:36→22:03)
[2022-01-01] MEDS: methylPREDNISolone SOD SUCC 125 MG/2 ML VIAL IV SCH ×3 (05:36→22:03)
[2022-01-01 07:06] LABS: ALT/SGPT 8 U/L (<40); AST/SGOT 14 U/L (<40); Albumin 3.1 gm/dL (3.2-5.2); Albumin/Globulin Ratio 0.9 (1.0-2.3); Alkaline Phosphatase 94 U/L (39-117); Bilirubin,Total < 0.2 mg/dL (0.1-1.0); Blood Urea Nitrogen 13 mg/dL (6-20); Calcium 8.6 mg/dL (8.6-10.4); Carbon Dioxide 28 mmol/L (22-30); Chloride 106 mmol/L (96-108); Globulin 3.4 gm/dL (2.2-3.7); Glomerular Filtration Rate 98; Glucose 123 mg/dL (70-105)
[2022-01-01 07:30] LABS: Basophils # (Auto) 0.04 K/mcL (0.00-0.30); Basophils % (Auto) 0.1 % (0.0-2.0); Eosinophils # (Auto) 0 K/mcL (0.00-0.70); Eosinophils % (Auto) 0 % (0.0-7.0); Hematocrit 33.2 % (40.1-51.0); Hemoglobin 10.3 g/dL (13.7-17.5); Lymphocytes # (Auto) 0.97 K/mcL (1.50-4.80); Mean Cell Volume 84.3 fL (80.0-100.0); Mean Platelet Volume 10.7 fL (7.4-10.4); Monocytes # (Auto) 1.05 K/mcL (0.10-0.90); Monocytes % (Auto) 3.2 % (1.0-12.0); Neutrophils % (Auto) 92.4 % (38.0-78.0); Platelet Count 364 K/mcL (140-440); RBC 3.94 M/mcL (4.63-6.08); Red Cell Distribution Width 13.3 % (11.5-14.5); WBC 32.7 K/mcL (4.5-11.0)
[2022-01-01] MEDS: OMEPRAZOLE 20 MG CAPSULE PO SCH (07:36)
[2022-01-01] MEDS: SENNOSIDES 1 TABLET PO SCH (08:56)
[2022-01-01] MEDS: CETIRIZINE 10 MG TABLET PO SCH (08:56)
[2022-01-01] MEDS: UMECLIDINIUM INH SCH (08:56)
[2022-01-01] MEDS: DOCUSATE SODIUM 100 MG CAPSULE PO SCH ×2 (08:56→22:03)
[2022-01-01] MEDS: VILANTEROL INH SCH (08:56)
[2022-01-01] MEDS: ENOXAPARIN 40 MG/0.4 ML SYRINGE SQ SCH (08:56)
[2022-01-01] MEDS ORDERED: VANCOMYCIN 1,000 MG in 0.9 % SODIUM CHLORIDE 250 ML IV SCH (09:00)
[2022-01-01] MEDS: VANCOMYCIN 1,000 MG in 0.9 % SODIUM CHLORIDE 250 ML IV SCH (09:29)
--- NOTE | 2022-01-01 10:16 | Internal Med Progress Note ---
SUBJECTIVE Subjective Patient information: Note initiated : 01/01/22 at 10:12 am Service Date, if different from initiated Date: [] Patient: Ned Fortune 57 y/o M admitted on 12/30/21 for shortness of breath. Chief Complaint: [] Interval history: Mr. Fortune is a 56 year old M history of COPD on home oxygen, pulmonary fibrosis, COVID-pneumonia in April 2021, colon cancer, presented with 3-day history of acute onset gradually worsening shortness of breath. Baseline oxygen requirement was 4 L at rest, 6 L during the day, and up to 8 L/min with any activities. Since last night, patient have acute onset worsening of his degree of shortness of breath. He is also committing of productive cough but he is not sure the color of his sputum. He denies any chest pain palpitations or chest pressure. He denies any respiratory wheezings. He denies any subjective fever, chills, or diaphoresis. Patient has positive sick contact, negative recent travel. He is not vaccinated against COVID-pneumonia. Vital signs at ED presentation significant for tachycardia and tachypnea. Labs significant for leukocytosis with WBC 25. D-dimer also elevated but CT angiogram negative for any pulmonary embolism; it otherwise showing unusual interstitial pneumonia with diffuse pulmonary fibrosis and superimposed mild active inflammation's. This has become progressively worse since last study 1 year ago. Initial serum lactic acid 2.5, repeat 1.2. BNP 282, appropriate for age. Serum procalcitonin level was slightly elevated to 0.18. Negative for COVID-pneumonia. Negative for influenza A or B. 12/31: BiPAP being switched off as of this morning. He is currently on high flow oxygen 9 L/min. Blood culture/sputum cultures no growth to date. WBC 28.2. Patient is experiencing improving degree of shortness of breath. He is coming of cough. He denies any wheezing. He denies any chest pain or pressure. He denies any fever chills or diaphoresis. Continue to titrate oxygen therapy. Continue Solu-Medrol and bronchodilators for COPD exacerbations. Continued broad-spectrum antibiotics therapy for pneumonia. Continue physical therapy. 01/01: Afebrile overnight. Patient was on BiPAP overnight and this morning he is on high flow oxygen 10 L/min. WBC 32.7 this morning. Cultures no growth today. MRSA screen negative. Patient is committing improving degree of shortness of breath. He is having less cough with some mucus productions. Denies respiratory wheezings. Denies chest pain or palpitations. Denies any fever chills or diaphoresis. Transfer from ICU to PCU. Decreased BiPAP pressure from 15/10 to 10/5 centimeters H2O tonight for better tolerance. DC vancomycin due to negative MRSA screen. Continue Zosyn. Continue to titrate oxygen throughout the day according to oxygen saturations and work of breathing. Continue Solu-Medrol for today and consider switching to prednisone tomorrow. Continue physical therapy. Constitutional Vitals: Vital Signs Temp Pulse Resp BP Pulse Ox O2 Del Method O2 Flow Rate 36.8 C 115 H 37 H 114/79 95 10 01/01/22 08:01 01/01/22 09:01 01/01/22 09:01 01/01/22 09:01 01/01/22 09:01 01/01/22 09:01 01/01/22 09:01 Period Temp Pulse Resp BP Sys/Ashraf Pulse Ox O2 Del Method O2 Flow Rate Last 24 Hr 35.9 C-37.3 C 70-120 18-39 93-124/49-87 91-100 BiPAP-High Flow Nasal Cannula 6-12 Intake and Output 12/31/21 01/01/22 01/01/22 21:59 05:59 13:59 Intake Total 1535 663 2905 Output Total 950 300 400 Balance 430 230 850 Weight 62.414 kg Intake & Output: Intake & Output 12/31/21 01/01/22 01/01/22 21:59 05:59 13:59 Intake Total 6563 896 6860 Output Total 950 300 400 Balance 430 230 850 Weight 62.414 kg Intake: IV 300 50 50 Zosyn 3.375 gm In Dextrose 5% 50 50 50 in Water 50 ml @ 100 mls/hr IV Q6H [facility] Rx#:[id number] Vancomycin 1,000 mg In Sodium 250 Chloride 0.9% 250 ml @ 250 mls/ hr IV Q12H [facility] Rx#:[id number] Oral [id number] Output: Void Amount 950 300 400 Other: Meal Dinner Breakfast Percent of Meal Consumed 75% 75% Feeding Ability Independent Urine Appearance Clear Clear Urine Color Light Antonette Bright Yellow Urine Odor Normal Head Head exam: Present atraumatic and normal inspection Eye Eye exam: Present normal appearance ENT ENT exam: Present mucous membranes moist, normal exam and normal external ear exam Additional comments: High flow oxygen in place Neck Neck exam: Present normal inspection Respiratory Respiratory exam: Present rhonchi Cardiovascular Cardiovascular exam: Present normal rate and rhythm GI/Abdominal GI/Abdominal exam: Present normal bowel sounds Back Exam Back exam: Present normal inspection Neurological Exam Neurological exam: Present alert and oriented X3 Skin Skin exam: Present intact and warm OBJ DATA Labs CBC & Chem 7: 01/01/22 05:14 01/01/22 05:14 Labs: Abnormal Lab Results 01/01/22 01/01/22 12/31/21 05:14 05:14 04:51 WBC 32.7 H* 28.2 H RBC 3.94 L 4.29 L Hgb 10.3 L 11.4 L Hct 33.2 L 37.0 L MCHC 30.8 L MPV 10.7 H 10.9 H Immature Gran % (Auto) 1.3 H 0.7 H Neut % (Auto) 92.4 H 94.7 H Lymph % (Auto) 3.0 L 2.9 L Lymph # (Auto) 0.97 L 0.82 L Bent # (Auto) 1.05 H Seg Neutrophils % Lymphocytes % Immature Gran # 0.44 H 0.19 H Absolute Neutrophils 30.16 H 26.67 H RBC Morphology Hypochromasia D-Dimer POC VBG pO2 POC Venous O2 Sat VBG Lactic Acid Glucose 123 H POC Glucose POC WB Ioniz Calcium NT-Pro-B Natriuret Pep Albumin 3.1 L Globulin Albumin/Globulin Ratio 0.9 L Procalcitonin POC Troponin I 12/31/21 12/30/21 12/30/21 04:50 14:02 13:07 WBC 25.4 H RBC 4.45 L Hgb 11.7 L Hct 37.4 L MCHC MPV Immature Gran % (Auto) Neut % (Auto) Lymph % (Auto) Lymph # (Auto) Bent # (Auto) Seg Neutrophils % 95 H Lymphocytes % 1 L Immature Gran # Absolute Neutrophils RBC Morphology Abnormal A Hypochromasia Few A D-Dimer POC VBG pO2 POC Venous O2 Sat VBG Lactic Acid Glucose 126 H POC Glucose POC WB Ioniz Calcium NT-Pro-B Natriuret Pep Albumin Globulin 4.0 H Albumin/Globulin Ratio 0.8 L Procalcitonin 0.18 H POC Troponin I 12/30/21 12/30/21 12/30/21 11:14 10:53 10:51 WBC RBC Hgb Hct MCHC MPV Immature Gran % (Auto) Neut % (Auto) Lymph % (Auto) Lymph # (Auto) Bent # (Auto) Seg Neutrophils % Lymphocytes % Immature Gran # Absolute Neutrophils RBC Morphology Hypochromasia D-Dimer 0.78 H POC VBG pO2 POC Venous O2 Sat VBG Lactic Acid Glucose POC Glucose POC WB Ioniz Calcium NT-Pro-B Natriuret Pep 282.7 H Albumin Globulin Albumin/Globulin Ratio Procalcitonin POC Troponin I 0.01 L 12/30/21 12/30/21 10:47 10:46 WBC RBC Hgb Hct MCHC MPV Immature Gran % (Auto) Neut % (Auto) Lymph % (Auto) Lymph # (Auto) Bent # (Auto) Seg Neutrophils % Lymphocytes % Immature Gran # Absolute Neutrophils RBC Morphology Hypochromasia D-Dimer POC VBG pO2 54 H POC Venous O2 Sat 86.0 H VBG Lactic Acid 2.5 H Glucose POC Glucose 131 H POC WB Ioniz Calcium 1.12 L NT-Pro-B Natriuret Pep Albumin Globulin Albumin/Globulin Ratio Procalcitonin POC Troponin I Meds: Medications Acetaminophen (Acetaminophen 325 Mg Tablet) 650 mg PO Q4-6HP PRN; Protocol PRN Reason: Per Pain Protocol/Fever > 101 Albuterol Sulfate (Albuterol Sulfate 2.5 Mg/3 Ml Nebulizer) 2.5 mg NEB Q4HRT PRN PRN Reason: Wheezing Albuterol/Ipratropium (Ipratropium/Albuterol 3 Ml Ampul.Neb) 3 ml NEB Q4HRT COUNTS INCLUDE 234 BEDS AT THE [facility] Last Admin: 01/01/22 07:38 Dose: 3 ml Cetirizine HCl (Cetirizine 10 Mg Tablet) 10 mg PO QDAY COUNTS INCLUDE 234 BEDS AT THE [facility] Last Admin: 01/01/22 08:56 Dose: 10 mg Diphenhydramine HCl (Diphenhydramine 25 Mg Capsule) 25 mg PO HSP PRN PRN Reason: Allergy Symptoms Docusate Sodium (Docusate Sodium 100 Mg Capsule) 100 mg PO BID COUNTS INCLUDE 234 BEDS AT THE [facility] Last Admin: 01/01/22 08:56 Dose: 100 mg Enoxaparin Sodium (Enoxaparin 40 Mg/0.4 Ml Syringe) 40 mg SQ DAILY COUNTS INCLUDE 234 BEDS AT THE [facility] Last Admin: 01/01/22 08:56 Dose: 40 mg Guaifenesin (Guaifenesin/Dextromethorphan Oral Alexus) 10 ml PO Q4HP PRN PRN Reason: Cough Last Admin: 12/31/21 19:32 Dose: 10 ml Piperacillin Sod/Tazobactam (Sod 3.375 gm/ Dextrose) 50 mls @ 100 mls/hr IV Q6H COUNTS INCLUDE 234 BEDS AT THE [facility]; Protocol Last Infusion: 01/01/22 06:26 Dose: Infused Lorazepam (Lorazepam 2 Mg/Ml Vial) 1 mg IV Q2HP PRN PRN Reason: ANXIETY/SEDATION Last Admin: 01/01/22 02:18 Dose: 1 mg Methylprednisolone Sodium Succinate (Methylprednisolone Sod Succ 125 Mg/2 Ml V ial) 125 mg IV Q8 COUNTS INCLUDE 234 BEDS AT THE [facility] Last Admin: 01/01/22 05:36 Dose: 125 mg Metoprolol Tartrate (Metoprolol Tartrate 5 Mg/5 Ml Vial) 5 mg IV Q5M PRN PRN Reason: Tachyarrhythmias Omeprazole (Omeprazole 20 Mg Capsule) 40 mg PO QAMAC COUNTS INCLUDE 234 BEDS AT THE [facility] Last Admin: 01/01/22 07:36 Dose: 40 mg Ondansetron HCl (Ondansetron 4 Mg/2 Ml Vial) 4 mg IV Q4-6HP PRN; Protocol PRN Reason: Nausea And Vomiting Umeclidinium- Vilanterol [Anoro Ellipta] 62.5-25mg 1 dose INH Q24H COUNTS INCLUDE 234 BEDS AT THE [facility] Last Admin: 01/01/22 08:56 Dose: 1 dose Senna (Sennosides 1 Tablet) 1 tab PO DAILY COUNTS INCLUDE 234 BEDS AT THE [facility] Last Admin: 01/01/22 08:56 Dose: 1 tab Sodium Chloride (0.9 % Sodium Chloride 10 Ml Syringe) 10 ml IV Q8 COUNTS INCLUDE 234 BEDS AT THE [facility] Last Admin: 01/01/22 05:36 Dose: 10 ml A/P Assessment and plan (1) COPD exacerbation: Status: Acute (2) CAP (community acquired pneumonia): Status: Acute (3) GERD with esophagitis: Status: Chronic (4) Pulmonary fibrosis determined by high resolution computed tomography: Status: Chronic Narrative A/P Narrative: Assessment and Plans: 1. Respiratory failure: DDx: Natural progression of pulmonary fibrosis vs. COPD exacerbation vs. community acquired pneumonia Inpatient ICU with telemetry-->downgrade to PCU Decreased BiPAP pressure from 15/10 to 10/5 centimeters H2O tonight for better tolerance Continue to titrate oxygen throughout the day according to oxygen saturations and work of breathing ABG Serial lactic acid Procalcitonin level Blood culture, no growth to date Sputum culture, no growth to date cbc w/ auto diff in the morning to trend WBC DC vancomycin due to negative MRSA screen Zosyn DuoNEB NEB scheduled Albuterol NEB PRN wheezing Robitussin PRN cough Continue Solu-Medrol for today and consider switching to prednisone tomorrow Physical therapy 2. GERD: Continue oral PPI from home regimen GI ppx: Continue oral PPI from home regimen DVT ppx: Lovenox Code status: DNR Prognosis: guarded Disposition: inpatient ICU-->PCU; PT Critical Care Time: 30min Time Spent With Patient Time: Total time spent is greater than 50% in coordination of care (as documented) at patient's floor/unit and/or counseling patient: Total time spent with greater than 50% in coordination of care (as documented) at patient's floor/unit and/or counseling patient:: 35 - 50 minutes
[2022-01-02] MEDS: IPRATROPIUM/ALBUTEROL 3 ML AMPUL.NEB NEB SCH ×6 (03:01→23:10)
[2022-01-02] MEDS: PIPERACILLIN SODIUM/TAZOBACTAM 3.375 GM in DEXTROSE 5% IN WATER 50 ML IV SCH ×4 (05:33→23:15)
[2022-01-02] MEDS: 0.9 % SODIUM CHLORIDE 10 ML SYRINGE IV SCH ×3 (05:38→21:43)
[2022-01-02] MEDS: methylPREDNISolone SOD SUCC 125 MG/2 ML VIAL IV SCH (05:39)
[2022-01-02 07:07] LABS: Basophils # (Auto) 0.06 K/mcL (0.00-0.30); Basophils % (Auto) 0.2 % (0.0-2.0); Eosinophils # (Auto) 0 K/mcL (0.00-0.70); Eosinophils % (Auto) 0 % (0.0-7.0); Hematocrit 34.6 % (40.1-51.0); Lymphocytes # (Auto) 1.07 K/mcL (1.50-4.80); Lymphocytes % (Auto) 4.2 % (15.5-49.0); Mean Cell Volume 84.4 fL (80.0-100.0); Mean Corpuscular HGB Conc 31.8 g/dL (31.0-36.0); Mean Platelet Volume 10.4 fL (7.4-10.4); Monocytes # (Auto) 0.73 K/mcL (0.10-0.90); Monocytes % (Auto) 2.9 % (1.0-12.0); Neutrophils % (Auto) 90.4 % (38.0-78.0); Platelet Count 373 K/mcL (140-440); Red Cell Distribution Width 13.2 % (11.5-14.5); WBC 25.5 K/mcL (4.5-11.0)
[2022-01-02 07:35] LABS: ALT/SGPT 9 U/L (<40); AST/SGOT 13 U/L (<40); Albumin 2.8 gm/dL (3.2-5.2); Albumin/Globulin Ratio 0.8 (1.0-2.3); Alkaline Phosphatase 97 U/L (39-117); Bilirubin,Total < 0.2 mg/dL (0.1-1.0); Blood Urea Nitrogen 11 mg/dL (6-20); Calcium 8.6 mg/dL (8.6-10.4); Carbon Dioxide 27 mmol/L (22-30); Chloride 106 mmol/L (96-108); Globulin 3.7 gm/dL (2.2-3.7); Glomerular Filtration Rate 103; Glucose 110 mg/dL (70-105)
[2022-01-02] MEDS: SENNOSIDES 1 TABLET PO SCH (08:16)
[2022-01-02] MEDS: ENOXAPARIN 40 MG/0.4 ML SYRINGE SQ SCH (08:16)
[2022-01-02] MEDS: DOCUSATE SODIUM 100 MG CAPSULE PO SCH ×2 (08:16→20:16)
[2022-01-02] MEDS: OMEPRAZOLE 20 MG CAPSULE PO SCH (08:16)
[2022-01-02] MEDS: CETIRIZINE 10 MG TABLET PO SCH (08:16)
[2022-01-02] MEDS: VILANTEROL INH SCH ×2 (08:17→10:02)
[2022-01-02] MEDS: UMECLIDINIUM INH SCH ×2 (08:17→10:02)
--- NOTE | 2022-01-02 08:57 | Internal Med Progress Note ---
SUBJECTIVE Subjective Patient information: Note initiated : 01/02/22 at 8:53 am Service Date, if different from initiated Date: [] Patient: Ned Fortune 57 y/o M admitted on 12/30/21 for shortness of breath. Chief Complaint: [] Interval history: Mr. Fortune is a 56 year old M history of COPD on home oxygen, pulmonary fibrosis, COVID-pneumonia in April 2021, colon cancer, presented with 3-day history of acute onset gradually worsening shortness of breath. Baseline oxygen requirement was 4 L at rest, 6 L during the day, and up to 8 L/min with any activities. Since last night, patient have acute onset worsening of his degree of shortness of breath. He is also committing of productive cough but he is not sure the color of his sputum. He denies any chest pain palpitations or chest pressure. He denies any respiratory wheezings. He denies any subjective fever, chills, or diaphoresis. Patient has positive sick contact, negative recent travel. He is not vaccinated against COVID-pneumonia. Vital signs at ED presentation significant for tachycardia and tachypnea. Labs significant for leukocytosis with WBC 25. D-dimer also elevated but CT angiogram negative for any pulmonary embolism; it otherwise showing unusual interstitial pneumonia with diffuse pulmonary fibrosis and superimposed mild active inflammation's. This has become progressively worse since last study 1 year ago. Initial serum lactic acid 2.5, repeat 1.2. BNP 282, appropriate for age. Serum procalcitonin level was slightly elevated to 0.18. Negative for COVID-pneumonia. Negative for influenza A or B. 12/31: BiPAP being switched off as of this morning. He is currently on high flow oxygen 9 L/min. Blood culture/sputum cultures no growth to date. WBC 28.2. Patient is experiencing improving degree of shortness of breath. He is coming of cough. He denies any wheezing. He denies any chest pain or pressure. He denies any fever chills or diaphoresis. Continue to titrate oxygen therapy. Continue Solu-Medrol and bronchodilators for COPD exacerbations. Continued broad-spectrum antibiotics therapy for pneumonia. Continue physical therapy. 01/01: Afebrile overnight. Patient was on BiPAP overnight and this morning he is on high flow oxygen 10 L/min. WBC 32.7 this morning. Cultures no growth today. MRSA screen negative. Patient is committing improving degree of shortness of breath. He is having less cough with some mucus productions. Denies respiratory wheezings. Denies chest pain or palpitations. Denies any fever chills or diaphoresis. Transfer from ICU to PCU. Decreased BiPAP pressure from 15/10 to 10/5 centimeters H2O tonight for better tolerance. DC vancomycin due to negative MRSA screen. Continue Zosyn. Continue to titrate oxygen throughout the day according to oxygen saturations and work of breathing. Continue Solu-Medrol for today and consider switching to prednisone tomorrow. Continue physical therapy. 01/02: Afebrile overnight. Cultures no growth today. Patient was on BiPAP 10 out of 5 cm H2O with FiO2 of 45% last night until 5 AM this morning. Patient is currently on 7 L/min of oxygen. Patient is complaining of improving degree of shortness of breath. Improving degree of cough and wheezing. Denies chest pain or chest pressure. Denies subjective fever chills or diaphoresis. DC Solu-Medrol and switch to prednisone. Continue Zosyn. Continue to titrate oxygen throughout the day according to oxygen saturations and work of breathing. BiPAP as needed while sleeping at night. Continue physical therapy. Stays in PCU. Constitutional Vitals: Vital Signs Temp Pulse Resp BP Pulse Ox O2 Del Method O2 Flow Rate 36.6 C 89 35 H 112/83 92 Bubble Humidifier 7 01/02/22 08:01 01/02/22 08:01 01/02/22 08:01 01/02/22 08:01 01/02/22 08:01 01/02/22 08:01 01/02/22 08:01 Period Temp Pulse Resp BP Sys/Ashraf Pulse Ox O2 Del Method O2 Flow Rate Last 24 Hr 36.3 C-37.1 C 57-115 21-37 103-129/73-93 90-100 BiPAP-Nasal Cannula, Bubble Humidifier 6-10 Intake and Output 01/01/22 01/02/22 01/02/22 21:59 05:59 13:59 Intake Total 290 270 50 Output Total 1025 500 275 Balance -735 -230 -225 Weight 61.779 kg Intake & Output: Intake & Output 08/31/22 09/01/22 09/01/22 21:59 05:59 13:59 Intake Total 290 270 50 Output Total 1025 500 275 Balance -733 -230 -513 Weight 61.779 kg Intake: IV 50 50 50 Zosyn 3.375 gm In Dextrose 5% 50 50 50 in Water 50 ml @ 100 mls/hr IV Q6H [facility] Rx#:[id number] Oral 240 220 Output: Void Amount 1025 500 275 Other: Meal Dinner Percent of Meal Consumed 100% Feeding Ability Independent Urine Appearance Clear Clear Clear Urine Color Pale Pale Dark Yellow General appearance: cooperative, no acute distress and thin Head Head exam: Present atraumatic and normal inspection Eye Eye exam: Present normal appearance ENT ENT exam: Present mucous membranes moist, normal exam and normal external ear exam Additional comments: High flow oxygen in place Neck Neck exam: Present normal inspection Respiratory Respiratory exam: Present rhonchi Cardiovascular Cardiovascular exam: Present normal rate and rhythm GI/Abdominal GI/Abdominal exam: Present normal bowel sounds Back Exam Back exam: Present normal inspection Neurological Exam Neurological exam: Present alert and oriented X3 Skin Skin exam: Present intact and warm OBJ DATA Labs CBC & Chem 7: 01/02/22 05:06 01/02/22 05:06 Labs: Abnormal Lab Results 01/02/22 01/02/22 01/02/22 08:05 05:06 05:06 WBC 25.5 H RBC 4.10 L Hgb 11.0 L Hct 34.6 L MCHC MPV Immature Gran % (Auto) 2.3 H Neut % (Auto) 90.4 H Lymph % (Auto) 4.2 L Lymph # (Auto) 1.07 L Wilkes # (Auto) Seg Neutrophils % Lymphocytes % Immature Gran # 0.58 H Absolute Neutrophils 23.10 H RBC Morphology Hypochromasia D-Dimer POC VBG pO2 POC Venous O2 Sat VBG Lactic Acid Glucose 110 H POC Glucose POC WB Ioniz Calcium NT-Pro-B Natriuret Pep Albumin 2.8 L Globulin Albumin/Globulin Ratio 0.8 L Procalcitonin Vancomycin Trough < 4.0 L POC Troponin I 01/01/22 01/01/22 12/31/21 05:14 05:14 04:51 WBC 32.7 H* 28.2 H RBC 3.94 L 4.29 L Hgb 10.3 L 11.4 L Hct 33.2 L 37.0 L MCHC 30.8 L MPV 10.7 H 10.9 H Immature Gran % (Auto) 1.3 H 0.7 H Neut % (Auto) 92.4 H 94.7 H Lymph % (Auto) 3.0 L 2.9 L Lymph # (Auto) 0.97 L 0.82 L Wilkes # (Auto) 1.05 H Seg Neutrophils % Lymphocytes % Immature Gran # 0.44 H 0.19 H Absolute Neutrophils 30.16 H 26.67 H RBC Morphology Hypochromasia D-Dimer POC VBG pO2 POC Venous O2 Sat VBG Lactic Acid Glucose 123 H POC Glucose POC WB Ioniz Calcium NT-Pro-B Natriuret Pep Albumin 3.1 L Globulin Albumin/Globulin Ratio 0.9 L Procalcitonin Vancomycin Trough POC Troponin I 12/31/21 12/30/21 12/30/21 04:50 14:02 13:07 WBC 25.4 H RBC 4.45 L Hgb 11.7 L Hct 37.4 L MCHC MPV Immature Gran % (Auto) Neut % (Auto) Lymph % (Auto) Lymph # (Auto) Wilkes # (Auto) Seg Neutrophils % 95 H Lymphocytes % 1 L Immature Gran # Absolute Neutrophils RBC Morphology Abnormal A Hypochromasia Few A D-Dimer POC VBG pO2 POC Venous O2 Sat VBG Lactic Acid Glucose 126 H POC Glucose POC WB Ioniz Calcium NT-Pro-B Natriuret Pep Albumin Globulin 4.0 H Albumin/Globulin Ratio 0.8 L Procalcitonin 0.18 H Vancomycin Trough POC Troponin I 12/30/21 12/30/21 12/30/21 11:14 10:53 10:51 WBC RBC Hgb Hct MCHC MPV Immature Gran % (Auto) Neut % (Auto) Lymph % (Auto) Lymph # (Auto) Wilkes # (Auto) Seg Neutrophils % Lymphocytes % Immature Gran # Absolute Neutrophils RBC Morphology Hypochromasia D-Dimer 0.78 H POC VBG pO2 POC Venous O2 Sat VBG Lactic Acid Glucose POC Glucose POC WB Ioniz Calcium NT-Pro-B Natriuret Pep 282.7 H Albumin Globulin Albumin/Globulin Ratio Procalcitonin Vancomycin Trough POC Troponin I 0.01 L 12/30/21 12/30/21 10:47 10:46 WBC RBC Hgb Hct MCHC MPV Immature Gran % (Auto) Neut % (Auto) Lymph % (Auto) Lymph # (Auto) Wilkes # (Auto) Seg Neutrophils % Lymphocytes % Immature Gran # Absolute Neutrophils RBC Morphology Hypochromasia D-Dimer POC VBG pO2 54 H POC Venous O2 Sat 86.0 H VBG Lactic Acid 2.5 H Glucose POC Glucose 131 H POC WB Ioniz Calcium 1.12 L NT-Pro-B Natriuret Pep Albumin Globulin Albumin/Globulin Ratio Procalcitonin Vancomycin Trough POC Troponin I Meds: Medications Acetaminophen (Acetaminophen 325 Mg Tablet) 650 mg PO Q4-6HP PRN; Protocol PRN Reason: Per Pain Protocol/Fever > 101 Albuterol Sulfate (Albuterol Sulfate 2.5 Mg/3 Ml Nebulizer) 2.5 mg NEB Q4HRT PRN PRN Reason: Wheezing Albuterol/Ipratropium (Ipratropium/Albuterol 3 Ml Ampul.Neb) 3 ml NEB Q4HRT [facility] Last Admin: 01/02/22 07:49 Dose: 3 ml Cetirizine HCl (Cetirizine 10 Mg Tablet) 10 mg PO QDAY [facility] Last Admin: 01/02/22 08:16 Dose: 10 mg Diphenhydramine HCl (Diphenhydramine 25 Mg Capsule) 25 mg PO HSP PRN PRN Reason: Allergy Symptoms Docusate Sodium (Docusate Sodium 100 Mg Capsule) 100 mg PO BID [facility] Last Admin: 01/02/22 08:16 Dose: 100 mg Enoxaparin Sodium (Enoxaparin 40 Mg/0.4 Ml Syringe) 40 mg SQ DAILY [facility] Last Admin: 01/02/22 08:16 Dose: 40 mg Guaifenesin (Guaifenesin/Dextromethorphan Oral Alexus) 10 ml PO Q4HP PRN PRN Reason: Cough Last Admin: 12/31/21 19:32 Dose: 10 ml Piperacillin Sod/Tazobactam (Sod 3.375 gm/ Dextrose) 50 mls @ 100 mls/hr IV Q6H [facility]; Protocol Last Infusion: 01/02/22 06:03 Dose: Infused Lorazepam (Lorazepam 2 Mg/Ml Vial) 1 mg IV Q2HP PRN PRN Reason: ANXIETY/SEDATION Last Admin: 01/01/22 22:59 Dose: 1 mg Metoprolol Tartrate (Metoprolol Tartrate 5 Mg/5 Ml Vial) 5 mg IV Q5M PRN PRN Reason: Tachyarrhythmias Omeprazole (Omeprazole 20 Mg Capsule) 40 mg PO QAMAC [facility] Last Admin: 01/02/22 08:16 Dose: 40 mg Ondansetron HCl (Ondansetron 4 Mg/2 Ml Vial) 4 mg IV Q4-6HP PRN; Protocol PRN Reason: Nausea And Vomiting Umeclidinium- Vilanterol [Anoro Ellipta] 62.5-25mg 1 dose INH Q24H [facility] Last Admin: 01/02/22 08:17 Dose: 1 dose Senna (Sennosides 1 Tablet) 1 tab PO DAILY [facility] Last Admin: 01/02/22 08:16 Dose: 1 tab Sodium Chloride (0.9 % Sodium Chloride 10 Ml Syringe) 10 ml IV Q8 [facility] Last Admin: 01/02/22 05:38 Dose: 10 ml A/P Assessment and plan (1) COPD exacerbation: Status: Acute (2) CAP (community acquired pneumonia): Status: Acute (3) GERD with esophagitis: Status: Chronic (4) Pulmonary fibrosis determined by high resolution computed tomography: Status: Chronic Narrative A/P Narrative: Assessment and Plans: 1. Respiratory failure: DDx: Natural progression of pulmonary fibrosis vs. COPD exacerbation vs. community acquired pneumonia Inpatient PCU BiPAP as needed while sleeping at night Continue to titrate oxygen throughout the day according to oxygen saturations and work of breathing Blood culture, no growth to date Sputum culture, no growth to date cbc w/ auto diff in the morning to trend WBC Zosyn DuoNEB NEB scheduled Albuterol NEB PRN wheezing Robitussin PRN cough d/c Solu-Medrol, switch to Prednisone Physical therapy 2. GERD: Continue oral PPI from home regimen GI ppx: Continue oral PPI from home regimen DVT ppx: Lovenox Code status: DNR Prognosis: guarded Disposition: inpatient PCU; PT Time Spent With Patient Time: Total time spent is greater than 50% in coordination of care (as documented) at patient's floor/unit and/or counseling patient: Total time spent with greater than 50% in coordination of care (as documented) at patient's floor/unit and/or counseling patient:: 35 - 50 minutes
[2022-01-02] MEDS: predniSONE 20 MG TABLET PO SCH (10:03)
[2022-01-02] MEDS: guaiFENesin/DEXTROMETHORPHAN ORAL SOL PO PRN (20:16)
[2022-01-02] MEDS: LORazepam 2 MG/ML VIAL IV PRN (23:15)
[2022-01-03] MEDS: IPRATROPIUM/ALBUTEROL 3 ML AMPUL.NEB NEB SCH ×6 (03:23→23:04)
[2022-01-03] MEDS: LORazepam 2 MG/ML VIAL IV PRN (04:05)
[2022-01-03] MEDS: PIPERACILLIN SODIUM/TAZOBACTAM 3.375 GM in DEXTROSE 5% IN WATER 50 ML IV SCH ×3 (05:30→17:09)
[2022-01-03] MEDS: 0.9 % SODIUM CHLORIDE 10 ML SYRINGE IV SCH ×3 (06:00→22:17)
--- NOTE | 2022-01-03 07:32 | EKG ---
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 Measurements Intervals [place] Rate: 144 P: 17 CT: 116 QRS: -38 QRSD: 104 T: 34 QT: 299 QTc: 463 Interpretive Statements Sinus tachycardia Poor R wave progression. Electronically Signed On 01-03-2022 7:32:29 PDT by Pardeep Beal M.D. /[id number]
[2022-01-03] MEDS: OMEPRAZOLE 20 MG CAPSULE PO SCH (07:53)
[2022-01-03 08:42] LABS: ALT/SGPT 24 U/L (<40); AST/SGOT 20 U/L (<40); Albumin 2.8 gm/dL (3.2-5.2); Albumin/Globulin Ratio 0.9 (1.0-2.3); Alkaline Phosphatase 86 U/L (39-117); Bilirubin,Total < 0.2 mg/dL (0.1-1.0); Blood Urea Nitrogen 11 mg/dL (6-20); Calcium 8.2 mg/dL (8.6-10.4); Carbon Dioxide 29 mmol/L (22-30); Chloride 104 mmol/L (96-108); Globulin 3.1 gm/dL (2.2-3.7); Glomerular Filtration Rate 103; Glucose 82 mg/dL (70-105); Phosphorous 3.3 mg/dL (2.5-4.5)
[2022-01-03] MEDS: SENNOSIDES 1 TABLET PO SCH (08:56)
[2022-01-03] MEDS: CETIRIZINE 10 MG TABLET PO SCH (08:56)
[2022-01-03] MEDS: predniSONE 20 MG TABLET PO SCH (08:56)
[2022-01-03] MEDS: DOCUSATE SODIUM 100 MG CAPSULE PO SCH ×2 (08:56→22:16)
[2022-01-03 08:57] LABS: Basophils # (Auto) 0.05 K/mcL (0.00-0.30); Basophils % (Auto) 0.2 % (0.0-2.0); Eosinophils # (Auto) 0.02 K/mcL (0.00-0.70); Eosinophils % (Auto) 0.1 % (0.0-7.0); Hematocrit 34.8 % (40.1-51.0); Hemoglobin 10.8 g/dL (13.7-17.5); Lymphocytes # (Auto) 3.15 K/mcL (1.50-4.80); Lymphocytes % (Auto) 15.4 % (15.5-49.0); Mean Cell Volume 84.7 fL (80.0-100.0); Mean Platelet Volume 10.4 fL (7.4-10.4); Monocytes # (Auto) 1.71 K/mcL (0.10-0.90); Monocytes % (Auto) 8.3 % (1.0-12.0); Platelet Count 346 K/mcL (140-440); RBC 4.11 M/mcL (4.63-6.08); Red Cell Distribution Width 13.2 % (11.5-14.5); WBC 20.5 K/mcL (4.5-11.0)
[2022-01-03] MEDS: UMECLIDINIUM INH SCH (08:57)
[2022-01-03] MEDS: ENOXAPARIN 40 MG/0.4 ML SYRINGE SQ SCH (08:57)
[2022-01-03] MEDS: VILANTEROL INH SCH (08:57)
--- NOTE | 2022-01-03 09:27 | Internal Med Progress Note ---
SUBJECTIVE Subjective Patient information: Note initiated : 01/03/22 at 9:23 am Service Date, if different from initiated Date: [] Patient: Ned Fortune 57 y/o M admitted on 12/30/21 for shortness of breath. Chief Complaint: [] Interval history: Mr. Fortune is a 56 year old M history of COPD on home oxygen, pulmonary fibrosis, COVID-pneumonia in April 2021, colon cancer, presented with 3-day history of acute onset gradually worsening shortness of breath. Baseline oxygen requirement was 4 L at rest, 6 L during the day, and up to 8 L/min with any activities. Since last night, patient have acute onset worsening of his degree of shortness of breath. He is also committing of productive cough but he is not sure the color of his sputum. He denies any chest pain palpitations or chest pressure. He denies any respiratory wheezings. He denies any subjective fever, chills, or diaphoresis. Patient has positive sick contact, negative recent travel. He is not vaccinated against COVID-pneumonia. Vital signs at ED presentation significant for tachycardia and tachypnea. Labs significant for leukocytosis with WBC 25. D-dimer also elevated but CT angiogram negative for any pulmonary embolism; it otherwise showing unusual interstitial pneumonia with diffuse pulmonary fibrosis and superimposed mild active inflammation's. This has become progressively worse since last study 1 year ago. Initial serum lactic acid 2.5, repeat 1.2. BNP 282, appropriate for age. Serum procalcitonin level was slightly elevated to 0.18. Negative for COVID-pneumonia. Negative for influenza A or B. 12/31: BiPAP being switched off as of this morning. He is currently on high flow oxygen 9 L/min. Blood culture/sputum cultures no growth to date. WBC 28.2. Patient is experiencing improving degree of shortness of breath. He is coming of cough. He denies any wheezing. He denies any chest pain or pressure. He denies any fever chills or diaphoresis. Continue to titrate oxygen therapy. Continue Solu-Medrol and bronchodilators for COPD exacerbations. Continued broad-spectrum antibiotics therapy for pneumonia. Continue physical therapy. 01/01: Afebrile overnight. Patient was on BiPAP overnight and this morning he is on high flow oxygen 10 L/min. WBC 32.7 this morning. Cultures no growth today. MRSA screen negative. Patient is committing improving degree of shortness of breath. He is having less cough with some mucus productions. Denies respiratory wheezings. Denies chest pain or palpitations. Denies any fever chills or diaphoresis. Transfer from ICU to PCU. Decreased BiPAP pressure from 15/10 to 10/5 centimeters H2O tonight for better tolerance. DC vancomycin due to negative MRSA screen. Continue Zosyn. Continue to titrate oxygen throughout the day according to oxygen saturations and work of breathing. Continue Solu-Medrol for today and consider switching to prednisone tomorrow. Continue physical therapy. 01/02: Afebrile overnight. Cultures no growth today. Patient was on BiPAP 10 out of 5 cm H2O with FiO2 of 45% last night until 5 AM this morning. Patient is currently on 7 L/min of oxygen. Patient is complaining of improving degree of shortness of breath. Improving degree of cough and wheezing. Denies chest pain or chest pressure. Denies subjective fever chills or diaphoresis. DC Solu-Medrol and switch to prednisone. Continue Zosyn. Continue to titrate oxygen throughout the day according to oxygen saturations and work of breathing. BiPAP as needed while sleeping at night. Continue physical therapy. Stays in PCU. 01/03: Afebrile overnight. Cultures no growth to date. Patient was on BiPAP 10 out of 5 cm H2O with FiO2 of 45% last night, currently on 7L/min of supplemental oxygen. Patient is complaining of improving degree of shortness of breath. Improving degree of cough and wheezing. Denies chest pain or chest pressure. Denies subjective fever chills or diaphoresis. Day 5 Zosyn. Day 2 Prednisone (day 5 total of steriod therapy). Continue to titrate oxygen throughout the day according to oxygen saturations and work of breathing. BiPAP as needed while sleeping at night. Continue physical therapy. Stays in PCU. Constitutional Vitals: Vital Signs Temp Pulse Resp BP Pulse Ox O2 Del Method O2 Flow Rate 36.2 C 85 28 H 109/85 93 Bubble Humidifier 6 01/03/22 08:01 01/03/22 08:01 01/03/22 08:01 01/03/22 08:01 01/03/22 08:20 01/03/22 08:20 01/03/22 08:20 Period Temp Pulse Resp BP Sys/Ashraf Pulse Ox O2 Del Method O2 Flow Rate Last 24 Hr 36.2 C-36.7 C 45-105 17-36 100-146/75-95 93-100 BiPAP-Nasal Cannula 6-8 Intake and Output 01/02/22 01/03/22 01/03/22 21:59 05:59 13:59 Intake Total 1550 450 50 Output Total 650 0 200 Balance 900 450 -150 Weight 63.82 kg Intake & Output: Intake & Output 01/02/22 01/03/22 01/03/22 21:59 05:59 13:59 Intake Total 1550 450 50 Output Total 650 0 200 Balance 900 450 -150 Weight 63.82 kg Intake: IV 50 50 50 Zosyn 3.375 gm In Dextrose 5% 50 50 50 in Water 50 ml @ 100 mls/hr IV Q6H [facility] Rx#:[id number] Oral 1500 400 Output: Void Amount 650 0 200 Other: Meal Dinner Percent of Meal Consumed 50% Urine Appearance Clear Clear Urine Color Dark Yellow Yellow Urine Odor Normal Stool Size Moderate Stool Color Brown Stool Consistency Liquid # Voids 1 # Bowel Movements 1 0 General appearance: cooperative, no acute distress and thin Head Head exam: Present atraumatic and normal inspection Eye Eye exam: Present normal appearance ENT ENT exam: Present mucous membranes moist, normal exam and normal external ear exam Additional comments: High flow oxygen in place Neck Neck exam: Present normal inspection Respiratory Respiratory exam: Present decreased breath sounds, rhonchi and wheezes Cardiovascular Cardiovascular exam: Present normal rate and rhythm GI/Abdominal GI/Abdominal exam: Present normal bowel sounds Back Exam Back exam: Present normal inspection Neurological Exam Neurological exam: Present alert and oriented X3 Skin Skin exam: Present intact and warm OBJ DATA Labs CBC & Chem 7: 01/03/22 05:20 01/03/22 05:20 Labs: Abnormal Lab Results 01/03/22 01/03/22 01/02/22 05:20 05:20 08:05 WBC 20.5 H RBC 4.11 L Hgb 10.8 L Hct 34.8 L MPV Immature Gran % (Auto) 4.0 H Neut % (Auto) Lymph % (Auto) 15.4 L Lymph # (Auto) [place] # (Auto) 1.71 H Immature Gran # 0.83 H Absolute Neutrophils 14.74 H Glucose Calcium 8.2 L Albumin 2.8 L Albumin/Globulin Ratio 0.9 L Vancomycin Trough < 4.0 L 01/02/22 01/02/22 01/01/22 05:06 05:06 05:14 WBC 25.5 H RBC 4.10 L Hgb 11.0 L Hct 34.6 L MPV Immature Gran % (Auto) 2.3 H Neut % (Auto) 90.4 H Lymph % (Auto) 4.2 L Lymph # (Auto) 1.07 L [place] # (Auto) Immature Gran # 0.58 H Absolute Neutrophils 23.10 H Glucose 110 H 123 H Calcium Albumin 2.8 L 3.1 L Albumin/Globulin Ratio 0.8 L 0.9 L Vancomycin Trough 01/01/22 05:14 WBC 32.7 H* RBC 3.94 L Hgb 10.3 L Hct 33.2 L MPV 10.7 H Immature Gran % (Auto) 1.3 H Neut % (Auto) 92.4 H Lymph % (Auto) 3.0 L Lymph # (Auto) 0.97 L [place] # (Auto) 1.05 H Immature Gran # 0.44 H Absolute Neutrophils 30.16 H Glucose Calcium Albumin Albumin/Globulin Ratio Vancomycin Trough Meds: Medications Acetaminophen (Acetaminophen 325 Mg Tablet) 650 mg PO Q4-6HP PRN; Protocol PRN Reason: Per Pain Protocol/Fever > 101 Albuterol Sulfate (Albuterol Sulfate 2.5 Mg/3 Ml Nebulizer) 2.5 mg NEB Q4HRT PRN PRN Reason: Wheezing Albuterol/Ipratropium (Ipratropium/Albuterol 3 Ml Ampul.Neb) 3 ml NEB Q4HRT [facility] Last Admin: 01/03/22 07:44 Dose: 3 ml Cetirizine HCl (Cetirizine 10 Mg Tablet) 10 mg PO QDAY [facility] Last Admin: 01/03/22 08:56 Dose: 10 mg Diphenhydramine HCl (Diphenhydramine 25 Mg Capsule) 25 mg PO HSP PRN PRN Reason: Allergy Symptoms Docusate Sodium (Docusate Sodium 100 Mg Capsule) 100 mg PO BID [facility] Last Admin: 01/03/22 08:56 Dose: 100 mg Enoxaparin Sodium (Enoxaparin 40 Mg/0.4 Ml Syringe) 40 mg SQ DAILY [facility] Last Admin: 01/03/22 08:57 Dose: 40 mg Guaifenesin (Guaifenesin/Dextromethorphan Oral Alexus) 10 ml PO Q4HP PRN PRN Reason: Cough Last Admin: 01/02/22 20:16 Dose: 10 ml Piperacillin Sod/Tazobactam (Sod 3.375 gm/ Dextrose) 50 mls @ 100 mls/hr IV Q6H [facility]; Protocol Last Infusion: 01/03/22 06:00 Dose: Infused Lorazepam (Lorazepam 2 Mg/Ml Vial) 1 mg IV Q2HP PRN PRN Reason: ANXIETY/SEDATION Last Admin: 01/03/22 04:05 Dose: 1 mg Metoprolol Tartrate (Metoprolol Tartrate 5 Mg/5 Ml Vial) 5 mg IV Q5M PRN PRN Reason: Tachyarrhythmias Omeprazole (Omeprazole 20 Mg Capsule) 40 mg PO QAMAC [facility] Last Admin: 01/03/22 07:53 Dose: 40 mg Ondansetron HCl (Ondansetron 4 Mg/2 Ml Vial) 4 mg IV Q4-6HP PRN; Protocol PRN Reason: Nausea And Vomiting Umeclidinium- Vilanterol [Anoro Ellipta] 62.5-25mg 1 dose INH DAILY [facility] Last Admin: 01/03/22 08:57 Dose: 1 dose Prednisone (Pred[facility] 20 Mg Tablet) [facility] Admin: 01/03/22 08:56 Dose: 40 mg Senna (Sennosides 1 Tablet) 1 tab PO DAILY [facility] Last Admin: 01/03/22 08:56 Dose: 1 tab Sodium Chloride (0.9 % Sodium Chloride 10 Ml Syringe) 10 ml IV Q8 [facility] Last Admin: 01/03/22 06:00 Dose: 10 ml A/P Assessment and plan (1) COPD exacerbation: Status: Acute (2) CAP (community acquired pneumonia): Status: Acute (3) GERD with esophagitis: Status: Chronic (4) Pulmonary fibrosis determined by high resolution computed tomography: Status: Chronic Narrative A/P Narrative: Assessment and Plans: 1. Respiratory failure: DDx: Natural progression of pulmonary fibrosis vs. COPD exacerbation vs. community acquired pneumonia Inpatient PCU BiPAP as needed while sleeping at night Continue to titrate oxygen throughout the day according to oxygen saturations and work of breathing Blood culture, no growth to date Sputum culture, no growth to date cbc w/ auto diff in the morning to trend WBC Zosyn DuoNEB NEB scheduled Albuterol NEB PRN wheezing Robitussin PRN cough Prednisone Physical therapy 2. GERD: Continue oral PPI from home regimen GI ppx: Continue oral PPI from home regimen DVT ppx: Lovenox Code status: DNR Prognosis: guarded Disposition: inpatient PCU; PT Time Spent With Patient Time: Total time spent is greater than 50% in coordination of care (as documented) at patient's floor/unit and/or counseling patient: Total time spent with greater than 50% in coordination of care (as documented) at patient's floor/unit and/or counseling patient:: 25 - 35 minutes
[2022-01-03] MEDS: POTASSIUM CHLORIDE 20 MEQ TABLET PO SCH (17:06)
[2022-01-04] MEDS: PIPERACILLIN SODIUM/TAZOBACTAM 3.375 GM in DEXTROSE 5% IN WATER 50 ML IV SCH ×2 (00:15→05:10)
[2022-01-04] MEDS: IPRATROPIUM/ALBUTEROL 3 ML AMPUL.NEB NEB SCH ×2 (05:08→07:30)
[2022-01-04] MEDS: 0.9 % SODIUM CHLORIDE 10 ML SYRINGE IV SCH (06:05)
[2022-01-04 06:47] LABS: Basophils # (Auto) 0.13 K/mcL (0.00-0.30); Basophils % (Auto) 0.7 % (0.0-2.0); Eosinophils # (Auto) 0.07 K/mcL (0.00-0.70); Eosinophils % (Auto) 0.4 % (0.0-7.0); Hematocrit 37.1 % (40.1-51.0); Hemoglobin 11.6 g/dL (13.7-17.5); Lymphocytes # (Auto) 3.54 K/mcL (1.50-4.80); Lymphocytes % (Auto) 19.1 % (15.5-49.0); Mean Cell Volume 84.3 fL (80.0-100.0); Mean Corpuscular HGB Conc 31.3 g/dL (31.0-36.0); Mean Platelet Volume 10.1 fL (7.4-10.4); Monocytes # (Auto) 1.44 K/mcL (0.10-0.90); Monocytes % (Auto) 7.8 % (1.0-12.0); Neutrophils % (Auto) 66.7 % (38.0-78.0); Platelet Count 361 K/mcL (140-440); Red Cell Distribution Width 13.3 % (11.5-14.5); WBC 18.5 K/mcL (4.5-11.0)
[2022-01-04 06:58] LABS: ALT/SGPT 46 U/L (<40); AST/SGOT 26 U/L (<40); Albumin 2.8 gm/dL (3.2-5.2); Albumin/Globulin Ratio 0.8 (1.0-2.3); Alkaline Phosphatase 87 U/L (39-117); Bilirubin,Total 0.2 mg/dL (0.1-1.0); Blood Urea Nitrogen 9 mg/dL (6-20); Calcium 8.3 mg/dL (8.6-10.4); Carbon Dioxide 29 mmol/L (22-30); Chloride 104 mmol/L (96-108); Globulin 3.3 gm/dL (2.2-3.7); Glomerular Filtration Rate 98; Glucose 80 mg/dL (70-105); Phosphorous 3.3 mg/dL (2.5-4.5)
[2022-01-04] MEDS: OMEPRAZOLE 20 MG CAPSULE PO SCH (07:37)
[2022-01-04] MEDS: UMECLIDINIUM INH SCH (08:41)
[2022-01-04] MEDS: VILANTEROL INH SCH (08:41)
[2022-01-04] MEDS: DOCUSATE SODIUM 100 MG CAPSULE PO SCH ×2 (08:42→08:56)
[2022-01-04] MEDS: ENOXAPARIN 40 MG/0.4 ML SYRINGE SQ SCH ×2 (08:42→08:55)
[2022-01-04] MEDS: CETIRIZINE 10 MG TABLET PO SCH (08:42)
[2022-01-04] MEDS: predniSONE 20 MG TABLET PO SCH (08:42)
[2022-01-04] MEDS: SENNOSIDES 1 TABLET PO SCH ×2 (08:42→08:56)
[2022-01-04] MEDS: POTASSIUM CHLORIDE 20 MEQ TABLET PO SCH (08:42)
--- NOTE | 2022-01-04 09:04 | Discharge Summary ---
Discharge Provider Provider IMPORTANT FOLLOW-UP INFORMATION FOR PCP: Patient information: Note initiated : 01/04/22 at 9:00 am Service Date, if different from initiated Date: [] Patient: Ned Fortune 57 y/o M admitted on 12/30/21 for shortness of breath. Chief Complaint: [] Date of admission: 12/30/21 17:55 Discharge date: 01/04/22 Primary care physician: HAILEE Multani Attending physician on admission: Guille Grubbs Consults: 12/30/21 Consult to Physician [CONS] Stat Comment: Consulting Provider: Guille Grubbs Reason For Exam: Physician to Consult Attending physician on discharge: Guille Grubbs COURSE Hospital Course Hospital course: Mr. Fortune is a 56 year old M history of COPD on home oxygen, pulmonary fibrosis, COVID-pneumonia in April 2021, colon cancer, presented with 3-day history of acute onset gradually worsening shortness of breath. Baseline oxygen requirement was 4 L at rest, 6 L during the day, and up to 8 L/min with any activities. Since last night, patient have acute onset worsening of his degree of shortness of breath. He is also committing of productive cough but he is not sure the color of his sputum. He denies any chest pain palpitations or chest pressure. He denies any respiratory wheezings. He denies any subjective fever, chills, or diaphoresis. Patient has positive sick contact, negative recent travel. He is not vaccinated against COVID-pneumonia. Vital signs at ED presentation significant for tachycardia and tachypnea. Labs significant for leukocytosis with WBC 25. D-dimer also elevated but CT angiogram negative for any pulmonary embolism; it otherwise showing unusual interstitial pneumonia with diffuse pulmonary fibrosis and superimposed mild active inflammation's. This has become progressively worse since last study 1 year ago. Initial serum lactic acid 2.5, repeat 1.2. BNP 282, appropriate for age. Serum procalcitonin level was slightly elevated to 0.18. Negative for COVID-pneumonia. Negative for influenza A or B. 12/31: BiPAP being switched off as of this morning. He is currently on high flow oxygen 9 L/min. Blood culture/sputum cultures no growth to date. WBC 28.2. Patient is experiencing improving degree of shortness of breath. He is coming of cough. He denies any wheezing. He denies any chest pain or pressure. He denies any fever chills or diaphoresis. Continue to titrate oxygen therapy. Continue Solu-Medrol and bronchodilators for COPD exacerbations. Continued broad-spectrum antibiotics therapy for pneumonia. Continue physical therapy. 01/01: Afebrile overnight. Patient was on BiPAP overnight and this morning he is on high flow oxygen 10 L/min. WBC 32.7 this morning. Cultures no growth today. MRSA screen negative. Patient is committing improving degree of shortness of breath. He is having less cough with some mucus productions. Denies respiratory wheezings. Denies chest pain or palpitations. Denies any fever chills or diaphoresis. Transfer from ICU to PCU. Decreased BiPAP pressure from 15/10 to 10/5 centimeters H2O tonight for better tolerance. DC vancomycin due to negative MRSA screen. Continue Zosyn. Continue to titrate oxygen throughout the day according to oxygen saturations and work of breathing. Continue Solu-Medrol for today and consider switching to prednisone tomorrow. Continue physical therapy. 01/02: Afebrile overnight. Cultures no growth today. Patient was on BiPAP 10 out of 5 cm H2O with FiO2 of 45% last night until 5 AM this morning. Patient is currently on 7 L/min of oxygen. Patient is complaining of improving degree of shortness of breath. Improving degree of cough and wheezing. Denies chest pain or chest pressure. Denies subjective fever chills or diaphoresis. DC Solu-Medrol and switch to prednisone. Continue Zosyn. Continue to titrate oxygen throughout the day according to oxygen saturations and work of breathing. BiPAP as needed while sleeping at night. Continue physical therapy. Stays in PCU. 01/03: Afebrile overnight. Cultures no growth to date. Patient was on BiPAP 10 out of 5 cm H2O with FiO2 of 45% last night, currently on 7L/min of supplemental oxygen. Patient is complaining of improving degree of shortness of breath. Improving degree of cough and wheezing. Denies chest pain or chest pressure. Denies subjective fever chills or diaphoresis. Day 5 Zosyn. Day 2 Prednisone (day 5 total of steriod therapy). Continue to titrate oxygen throughout the day according to oxygen saturations and work of breathing. BiPAP as needed while sleeping at night. Continue physical therapy. Stays in PCU. 01/04: Reached clinical stability, decision made to discharge home. Discharge diagnosis: COPD exacerbation Time Spent with Patient Time attestation: Total time spent providing and/or coordinating discharge services: Time spent: Less than 30 minutes EXAM Constitutional Vitals: Temp Pulse Resp BP Pulse Ox O2 Del Method O2 Flow Rate 36.8 C 85 24 H 113/79 95 Bubble Humidifier 4 01/04/22 08:01 01/04/22 07:30 01/04/22 08:01 01/04/22 08:01 01/04/22 08:01 01/04/22 08:01 01/04/22 08:01 General appearance: cooperative and no acute distress Head Head exam: Present atraumatic and normocephalic Eye Eye exam: Present EOMI and PERRL ENT ENT exam: Present mucous membranes moist, normal exam and normal external ear exam Additional comments: High flow oxygen in place Neck Neck exam: Present normal inspection; Absent lymphadenopathy, tenderness or thyromegaly Respiratory Respiratory exam: Present decreased breath sounds and rhonchi; Absent accessory muscle use, respiratory distress or wheezes Cardiovascular Cardiovascular exam: Present normal rate and rhythm; Absent JVD GI/Abdominal GI/Abdominal exam: Present normal bowel sounds and soft; Absent organomegaly or tenderness Rectal Rectal exam: Present deferred Extremities Exam Extremities exam: Present full ROM, normal capillary refill and normal inspection; Absent tenderness Neurological Exam Neurological exam: Present alert, CN II-XII intact and oriented X3; Absent motor sensory deficit Psychiatric Psychiatric exam: Present normal affect and normal mood; Absent anxious or depressed Skin Skin exam: Present dry and intact Discharge Data Data Completed and Pending Labs on day of discharge: Labs from last 24 hours 01/04/22 01/04/22 05:07 05:07 WBC 18.5 H RBC 4.40 L Hgb 11.6 L Hct 37.1 L MCV 84.3 MCH 26.4 MCHC 31.3 RDW 13.3 Plt Count 361 MPV 10.1 Immature Gran % (Auto) 5.3 H Neut % (Auto) 66.7 Lymph % (Auto) 19.1 [place] % (Auto) 7.8 Eos % (Auto) 0.4 Baso % (Auto) 0.7 Lymph # (Auto) 3.54 [place] # (Auto) 1.44 H Eos # (Auto) 0.07 Baso # (Auto) 0.13 Immature Gran # 0.98 H Absolute Neutrophils 12.33 H Sodium 141 Potassium 3.7 Chloride 104 Carbon Dioxide 29 Anion Gap 8.0 BUN 9 Creatinine 0.8 GFR Calculation 98 Glucose 80 Calcium 8.3 L Phosphorus 3.3 Magnesium 2.4 Total Bilirubin 0.2 AST 26 ALT 46 H Alkaline Phosphatase 87 Total Protein 6.1 Albumin 2.8 L Globulin 3.3 Albumin/Globulin Ratio 0.8 L Preliminary micro results at discharge 12/30/21 11:50 Blood Culture - Preliminary Blood 12/30/21 11:45 Blood Culture - Preliminary Blood Discharge Plan Patient/Caregiver Discharge Instructions Activity: increase activity as tolerated Diet: Regular Diet Instructions: COPD (Chronic Obstructive Pulmonary Disease) (GEN), Pneumonia (GEN) Prescriptions: New dextromethorphan-guaifenesin [Diabetic Tussin DM] 10-100 mg/5 mL Liquid 10 ml PO Q4HP PRN (Reason: Cough) Qty: 500 0RF ipratropium-albuterol 0.5 mg-3 mg(2.5 mg base)/3 mL Solution For Nebulization 3 ml NEB Q4HRT PRN (Reason: Wheezing) Qty: 100 0RF Continued umeclidinium 62.5 mcg-vilanterol 25 mcg/actuation powdr for inhalation 62.5-25 mcg/actuation blister with device 1 inh INHALATION Q24H Qty: 60 3RF Rx Instructions: 340B plan. omeprazole 40 mg capsule,delayed release(DR/EC) 40 mg PO QDAY Qty: 90 1RF cetirizine 10 mg capsule 10 mg PO QDAY Rx Instructions: qd diphenhydramine HCl [Benadryl Allergy] 25 mg tablet 25 - 50 mg PO QHS PRN (Reason: Allergy Symptoms) Rx Instructions: Pt states takes at 1800 and 2 010 albuterol sulfate 90 mcg/actuation Hfa Aerosol Inhaler 2 puff INHALATION Q4HP PRN (Reason: Shortness Of Breath) Follow Up Plan Follow up with: Adair Ramirez MD [Physician] - 01/16/22 3:15 pm Liane Howell ARNP [Primary Care Provider] - (Please call to schedule a follow up appointment on Thursday. ) Patient Disposition: Home, Self-Care Rehab Potential: Good I certify that the patient requires SNF services: No Overall status at discharge: patient is back to baseline Discharge Orders: Discharge Order (Routine); Ordered 01/04/22 Ordered By: Guille Grubbs
== END 2022-01-04 10:50 | disposition home or self-care (01) | DRG 190 ==
LOC: ED 10:30 → ICU 17:55
PROVIDERS: ADMIT Internal Medicine; ATTEND Internal Medicine

== ENCOUNTER 2022-04-13 05:33 | Inpatient (IN) ==
--- NOTE | 2022-04-13 05:48 | Emergency Department Note ---
HPI General Chief complaint: Shortness of Breath/Dyspnea Stated complaint: SOB Time Seen by Provider: 04/13/22 05:34 Source: patient and EMS Mode of arrival: EMS Limitations: no limitations History of Present Illness HPI Narrative: Narrative: Patient is a 57-year-old male with a history significant for anemia, COPD, and pulmonary fibrosis who presents to the emergency department due to shortness of breath and chest pain. Patient states that he has had increasing shortness of breath over the last 2 weeks. He states that for the last couple of days he has had right-sided sharp chest pain that worsens with deep breathing. He denies any other palliative or provocative factors. He states that he has had some radiation of this pain to the right shoulder. He endorses runny nose, but states that he gets this with his oxygen, and denies any worsening of this recently. He denies any other concerns at this time. Related Data Home Medications Medication Instructions Recorded Confirmed cetirizine 10 mg capsule 10 mg PO QDAY 08/05/19 04/13/22 diphenhydramine HCl 25 mg tablet 25 - 50 mg PO BID 12/05/21 04/13/22 (Benadryl Allergy) Previous Rx's Medication Instructions Recorded dextromethorphan-guaifenesin 10 10 ml PO Q4HP PRN Cough #500 mL 01/04/22 mg-100 mg/5 mL oral liquid (Diabetic Tussin DM) ipratropium 0.5 mg-albuterol 3 mg 3 ml inhalation Q4HRT PRN Wheezing 01/21/22 (2.5 mg base)/3 mL nebulization #100 mL soln omeprazole 40 mg capsule,delayed 40 mg PO QDAY #90 caps 03/12/22 release Electric mobility scooter #1 ea 03/19/22 albuterol sulfate 90 mcg/actuation 2 puff inhalation Q4HP PRN 04/08/22 aerosol inhaler Shortness Of Breath #8.5 grams umeclidinium 62.5 mcg-vilanterol 1 inh inhalation Q24H #60 ea 04/10/22 25 mcg/actuation powdr for inhalation (Anoro Ellipta) Allergies Allergy/AdvReac Type Severity Reaction Status Date / Time naproxen AdvReac Intermediate purple Verified 01/16/22 15:32 spots on face Review of Systems ROS ROS Narrative: Narrative: Constitutional: Denies fever or weakness Eyes: Denies eye pain or vision change ENT ED: Reports rhinorrhea; Denies throat pain Cardiovascular: Reports chest pain; Denies dyspnea on exertion, orthopnea or edema Respiratory: Reports shortness of breath; Denies cough Gastrointestinal: Denies abdominal pain, nausea, vomiting, diarrhea, constipation, hematochezia or melena Genitourinary: Denies dysuria or frequency Musculoskeletal: Denies back pain or myalgia Integumentary: Denies rash or lesions Neurological: Denies headache, weakness, numbness, confusion, abnormal gait or dizziness Endocrine: Denies fatigue or polyuria PFSH Narrative Patient History Narrative: Narrative: Medical/Surgical/Family History All Active Problems (Updated 04/14/22 @ 01:41 by Xavi Newton MD) SOB (shortness of breath) (Acute) Chest pain (Acute) Anemia, normocytic normochromic (Acute) Acute and chronic respiratory failure with hypoxia (Acute) Muscular deconditioning (Chronic) SOB (shortness of breath) (Acute) Respiratory failure (Acute) Acute and chronic respiratory failure (Acute) CAP (community acquired pneumonia) (Acute) COPD exacerbation (Acute) H/O malignant neoplasm of colon (Chronic) Pulmonary fibrosis determined by high resolution computed tomography (Chronic) GERD with esophagitis (Chronic) Rico esophagus (Chronic) Bronchiectasis (Chronic) Hypoxemia (Chronic) Walking pneumonia (Chronic) SOB (shortness of breath) (Chronic) Tubulovillous adenoma (Chronic) Colon cancer (Chronic ~07/2014) Iron deficiency anemia (Chronic) Sinus congestion (Chronic) SOB (shortness of breath) on exertion (Chronic) COPD (chronic obstructive pulmonary disease) (Chronic) Eczema (Chronic) Elevated BP without diagnosis of hypertension (Chronic) Seasonal allergies (Chronic) Oxygen desaturation (Chronic) COVID-19 (Acute) Pneumonia due to COVID-19 virus (Acute) LLL pneumonia (Chronic) Medical History Rico esophagus Bronchiectasis Colon cancer (~07/2014) history of tubulovillous adenoma and colon carcinoma , removed 07/2014 COPD (chronic obstructive pulmonary disease) Eczema Elevated BP without diagnosis of hypertension GERD with esophagitis H/O malignant neoplasm of colon H/O: rheumatic fever Hypoxemia Iron deficiency anemia Muscular deconditioning Oxygen desaturation 11/26/2020: 75-88% on oxygen today in clinic Pulmonary fibrosis determined by high resolution computed tomography Seasonal allergies Tubulovillous adenoma Surgical History History of colonoscopy (08/11/16) abnormal History of repair of hiatal hernia (~04/2018) bleeding ulcers History of tonsillectomy and adenoidectomy (~1969) S/P Clara fundoplication (without gastrostomy tube) procedure Family History Father PNA (pneumonia) Prostate cancer Mother Kidney failure Grandfather Cancer Daughter Hemiplegic migraine Ovarian cyst Social History Smoking Status: Former smoker Alcohol Intake Frequency: holiday/special occasion only Substance Use: does not use Exam Narrative Narrative: Narrative: General Limitations: no limitations General appearance: Present alert and in no apparent distress; Absent anxious, appears intoxicated or sleepy Head Head: Present normocephalic; Absent atraumatic Eye Eye: Present EOMI; Absent scleral icterus or nystagmus ENT ENT: Present mucous membranes moist; Absent nasal congestion Neck Neck: Present full ROM; Absent tenderness Chest Chest: Present normal inspection and symmetric chest wall rise Respiratory Respiratory: Present decreased breath sounds; Absent respiratory distress or accessory muscle use Cardiovascular Cardiovascular: Present normal rhythm, tachycardia and normal heart sounds Adbominal Abdominal: Present soft; Absent distention Extremities Extremities: Present normal inspection and full ROM Back Back: Present normal inspection and full ROM Neurological Neurological: Present alert and oriented X3 Psychiatric Psychiatric: Present normal affect and normal mood Skin Skin: Present warm (WNL), dry and normal color Course Vital Signs Vital signs: Vital Signs Pulse Rate 106 H 04/13/22 05:38 Respiratory Rate 36 H 04/13/22 05:38 Blood Pressure 169/110 04/13/22 05:38 Pulse Oximetry (%) 93 04/13/22 05:38 Oxygen Delivery Method 04/13/22 05:38 Oxygen Flow Rate (L/min) 15 04/13/22 05:38 Temperature 97.8 F 04/14/22 00:00 Pulse Rate 98 H 04/14/22 00:24 Respiratory Rate 18 04/14/22 00:24 Blood Pressure 91/58 04/14/22 00:00 Pulse Oximetry (%) 100 04/14/22 00:24 Oxygen Delivery Method 04/14/22 00:11 Oxygen Flow Rate (L/min) 45 04/14/22 00:11 [facility] MDM Narrative Medical decision making narrative: Narrative: Patient is a 57-year-old male who presents to the emergency department due to shortness of breath and chest pain. Patient's EKG and troponin are reassuring. Patient has negative COVID and influenza swabs. Differential includes other viral infection with COPD exacerbation, COPD exacerbation from another cause, worsening pulmonary fibrosis, and pulmonary embolus. Labs so far are reassuring, but CD4 and CT angio are pending at this time. Patient has been signed out to Dr. Cristobal. Lab Data Result diagrams: 04/13/22 06:34 Labs: Lab Results 04/13/22 04/13/22 04/13/22 Range/Units 06:01 06:01 06:34 WBC 19.3 H (4.5-11.0) K/mcL RBC 4.52 L (4.63-6.08) M/mcL Hgb 12.1 L (13.7-17.5) g/dL Hct 38.4 L (40.1-51.0) % POC Hct 39.0 L (41-55) MCV 85.0 (80.0-100.0) fL MCH 26.8 (26.0-34.0) pg MCHC 31.5 (31.0-36.0) g/dL RDW 13.4 (11.5-14.5) % Plt Count 315 (140-440) K/mcL MPV 11.1 (8.8-12.5) fL Immature Gran % (Auto) 0.5 (0.0-0.5) % Neut % (Auto) 82.6 H (38.0-78.0) % Lymph % (Auto) 7.0 L (15.5-49.0) % [place] % (Auto) 7.0 (1.0-12.0) % Eos % (Auto) 2.6 (0.0-7.0) % Baso % (Auto) 0.3 (0.0-2.0) % Lymph # (Auto) 1.35 L (1.50-4.80) K/mcL [place] # (Auto) 1.35 H (0.10-0.90) K/mcL Eos # (Auto) 0.50 (0.00-0.70) K/mcL Baso # (Auto) 0.06 (0.00-0.30) K/mcL Immature Gran # 0.09 H (0.00-0.05) K/mcl Absolute Neutrophils 15.90 H (1.80-8.00) K/mcL POC VBG pH (7.32-7.42) POC VBG pCO2 at Temp (41-51) POC VBG pO2 (25-40) POC VBG HCO3 (24-28) POC VBG Total CO2 (25-29) POC Venous O2 Sat (40-70) POC VBG Base Excess (-2-2) VBG Lactic Acid (0.5-2) POC Sodium 142 (133-145) POC Potassium 3.4 (3.3-5.1) POC Chloride 103 (96-108) POC Total CO2 32.0 H (22-30) POC BUN 12 (6-20) POC Creatinine 0.9 (0.6-1.2) POC Glucose 111 H (70-105) POC WB Ioniz Calcium 1.15 L (1.16-1.32) POC Troponin I < 0.02 (0.00-0.08) 04/13/22 Range/Units 07:07 WBC (4.5-11.0) K/mcL RBC (4.63-6.08) M/mcL Hgb (13.7-17.5) g/dL Hct (40.1-51.0) % POC Hct (41-55) MCV (80.0-100.0) fL MCH (26.0-34.0) pg MCHC (31.0-36.0) g/dL RDW (11.5-14.5) % Plt Count (140-440) K/mcL MPV (8.8-12.5) fL Immature Gran % (Auto) (0.0-0.5) % Neut % (Auto) (38.0-78.0) % Lymph % (Auto) (15.5-49.0) % [place] % (Auto) (1.0-12.0) % Eos % (Auto) (0.0-7.0) % Baso % (Auto) (0.0-2.0) % Lymph # (Auto) (1.50-4.80) K/mcL [place] # (Auto) (0.10-0.90) K/mcL Eos # (Auto) (0.00-0.70) K/mcL Baso # (Auto) (0.00-0.30) K/mcL Immature Gran # (0.00-0.05) K/mcl Absolute Neutrophils (1.80-8.00) K/mcL POC VBG pH 7.42 (7.32-7.42) POC VBG pCO2 at Temp 51.4 H (41-51) POC VBG pO2 22 L (25-40) POC VBG HCO3 32.9 H (24-28) POC VBG Total CO2 34.0 H (25-29) POC Venous O2 Sat 37.0 L (40-70) POC VBG Base Excess 8.0 H* (-2-2) VBG Lactic Acid 0.6 (0.5-2) POC Sodium (133-145) POC Potassium (3.3-5.1) POC Chloride (96-108) POC Total CO2 (22-30) POC BUN (6-20) POC Creatinine (0.6-1.2) POC Glucose (70-105) POC WB Ioniz Calcium (1.16-1.32) POC Troponin I (0.00-0.08) ED POC Tests ED POC Tests: LANE - Influenza A Negative LANE - Influenza B Negative LANE - SARS Antigen Negative EKG Data EKG #1: EKG attestation: Yes I reviewed and interpreted this EKG. EKG results narrative: Normal sinus rhythm with rate of 96, left axis deviation, PA 135, QRS of 79, QTC of 452, T wave inversions in lead III, T wave flattening in leads aVF, V3, V4, V5, and V6, and absence of ST elevation or depression. Discharge Plan Patient/Caregiver Discharge Instructions Pt seen by MEDICAL EQUIPMENT REPAIRER/PA only: No Clinical Impression: SOB (shortness of breath), Chest pain Patient Disposition: Still a Patient Discharge Date/Time: 04/13/22 09:33
[2022-04-13] MEDS ORDERED: IPRATROPIUM/ALBUTEROL 3 ML AMPUL.NEB NEB ONE (05:49)
[2022-04-13] MEDS ORDERED: DEXAMETHASONE 10 MG/ML VIAL IV ONE (05:52)
[2022-04-13 06:04] LABS: POC Calcium, Ionized 1.15 (1.16-1.32); POC Creatinine 0.9 (0.6-1.2); POC Potassium 3.4 (3.3-5.1)
--- NOTE | 2022-04-13 06:52 | Cat Scan Report ---
INDICATION: Pleuritic chest pain, SOB, tachypnea, tachycardia COMPARISON: Previous examination dated 12/30/2021 TECHNIQUE: Axial images obtained through the chest. 80ml Isovue 370 injected intravenously, and scanning was performed during pulmonary arterial phase. Sagittally and coronally reformatted images were obtained. MIP reformatted images. FINDINGS: Lungs:Severely abnormal lungs. There is extensive honeycombing and traction bronchiectasis. There are paraseptal cystic changes. Appearance is consistent with severe pulmonary fibrosis. This is considered a UIP pattern and probably secondary to IPF. Appearance is essentially unchanged Mediastinum, vascular:Main pulmonary artery, right pulmonary artery, left pulmonary artery are negative. No intraluminal filling defects. No lobar, segmental, or subsegmental emboli. Main pulmonary artery measures 31 mm. This is mildly enlarged secondary to pulmonary arterial hypertension Thoracic aorta is negative. No aneurysmal dilatation No pathologic mediastinal or hilar adenopathy Heart:No cardiomegaly. No pericardial effusion. There is coronary artery calcification Pleura:No pleural effusion or pleural-based mass Axilla, supraclavicular regions, chest wall:No pathologic axillary or supraclavicular adenopathy. Musculoskeletal:Negative thoracic spine. No compression fracture. No lytic lesion. No rib or sternal lesions Upper Abdomen:There is a moderate hiatal hernia. Upper abdomen is otherwise negative IMPRESSION: 1. Abnormal lungs. Findings are consistent with pulmonary fibrosis. This is considered a UIP pattern and probably consistent with IPF. No interval change since 12/30/2021 2. Negative pulmonary CTA. No pulmonary emboli 3. Mildly enlarged main pulmonary artery 4. Moderate hiatal hernia 5. Coronary artery calcification The exam was performed using radiation dose optimization techniques including, but not limited to, automated exposure control, adjustment of the mA and/or kV according to patient size and use of iterative reconstruction technique. Interpreted and Authenticated by: Pardeep White 04/13/22
[2022-04-13 07:03] LABS: Basophils # (Auto) 0.06 K/mcL (0.00-0.30); Basophils % (Auto) 0.3 % (0.0-2.0); Eosinophils % (Auto) 2.6 % (0.0-7.0); Hematocrit 38.4 % (40.1-51.0); Hemoglobin 12.1 g/dL (13.7-17.5); Lymphocytes # (Auto) 1.35 K/mcL (1.50-4.80); Mean Corpuscular HGB Conc 31.5 g/dL (31.0-36.0); Mean Platelet Volume 11.1 fL (8.8-12.5); Monocytes # (Auto) 1.35 K/mcL (0.10-0.90); Neutrophils % (Auto) 82.6 % (38.0-78.0); Platelet Count 315 K/mcL (140-440); RBC 4.52 M/mcL (4.63-6.08); Red Cell Distribution Width 13.4 % (11.5-14.5); WBC 19.3 K/mcL (4.5-11.0)
--- NOTE | 2022-04-13 09:09 | Internal Med History&Physical ---
HPI History of Present Illness Patient information: Note initiated : 04/13/22 at 9:00 am Service Date, if different from initiated Date: [] Patient: Ned Fortune 57 y/o M admitted on for Shortness of breath. Chief Complaint: [Shortness of breath] Chief complaint: Shortness of breath History of present illness: Mr. Fortune is a 57 year old M history of COPD, advanced pulmonary fibrosis, presenting with 1 week history of worsening degree of shortness of breath. He is also complaining of productive cough with clear sputum and respiratory wheezings. He is complaining of right-sided rib pains when he coughs. He denies any general body weakness. He denies any fever, chills, or diaphoresis. He is coming of dyspnea on exertions with any physical activities. His baseline 1 week ago he uses 4 to 6 L of oxygen's, but over the past week, he used up to 8 to 10 L/min of oxygen's. CEPHEID screening negative for RSV, COVID, and influenza. Labs otherwise significant for leukocytosis with WBC 19.3, around his baseline. CTA of the chest negative for pulmonary embolism. Shows advanced pulmonary fibrosis, no focal pulmonary infiltrates. He was placed on high flow oxygen therapy, and admission request was called for acute on chronic respiratory failure secondary to advanced pulmonary fibrosis and COPD exacerbations. Constitutional Constitutional: Absent chills, excessive sweating, fatigue, fever(s) or weakness EENT Eyes: Absent blurry vision, change in vision, loss of vision or other visual disturbances Ears: Absent decreased hearing or tinnitus Nose, mouth and throat: Absent abnormal hearing, dry mouth, headache(s), nasal congestion or sore throat Cardiovascular Cardiovascular: Present dyspnea on exertion; Absent chest pain, chest pain at rest, edema, irregular heart rhythm or palpatations Respiratory Respiratory: Present cough, dyspnea, dyspnea on exertion, wheezing and excessive phlegm production Gastrointestinal Gastrointestinal: Absent abdominal pain, constipation, diarrhea, nausea or vomiting Musculoskeletal Musculoskeletal: Absent back pain, deformity, limited range of motion, muscle cramps, muscle weakness or numbness Integumentary Integumentary: Absent lesions, rash or wounds Neurological Neurological: Absent focal weakness, headache(s) or numbness Psychiatric Psychiatric: Absent anxiety, depression or hallucinations PFSH PFSH All Active Problems (Updated 04/13/22 @ 09:05 by Guille Grubbs MD) Anemia, normocytic normochromic (Acute) Acute and chronic respiratory failure with hypoxia (Acute) Muscular deconditioning (Chronic) SOB (shortness of breath) (Acute) Respiratory failure (Acute) Acute and chronic respiratory failure (Acute) CAP (community acquired pneumonia) (Acute) COPD exacerbation (Acute) H/O malignant neoplasm of colon (Chronic) Pulmonary fibrosis determined by high resolution computed tomography (Chronic) GERD with esophagitis (Chronic) Rico esophagus (Chronic) Bronchiectasis (Chronic) Hypoxemia (Chronic) Walking pneumonia (Chronic) SOB (shortness of breath) (Chronic) Tubulovillous adenoma (Chronic) Colon cancer (Chronic ~07/2014) Iron deficiency anemia (Chronic) Sinus congestion (Chronic) SOB (shortness of breath) on exertion (Chronic) COPD (chronic obstructive pulmonary disease) (Chronic) Eczema (Chronic) Elevated BP without diagnosis of hypertension (Chronic) Seasonal allergies (Chronic) Oxygen desaturation (Chronic) COVID-19 (Acute) Pneumonia due to COVID-19 virus (Acute) LLL pneumonia (Chronic) Medical History Rico esophagus Bronchiectasis Colon cancer (~07/2014) history of tubulovillous adenoma and colon carcinoma , removed 07/2014 COPD (chronic obstructive pulmonary disease) Eczema Elevated BP without diagnosis of hypertension GERD with esophagitis H/O malignant neoplasm of colon H/O: rheumatic fever Hypoxemia Iron deficiency anemia Muscular deconditioning Oxygen desaturation 11/26/2020: 75-88% on oxygen today in clinic Pulmonary fibrosis determined by high resolution computed tomography Seasonal allergies Tubulovillous adenoma Surgical History History of colonoscopy (08/11/16) abnormal History of repair of hiatal hernia (~04/2018) bleeding ulcers History of tonsillectomy and adenoidectomy (~1969) S/P Clara fundoplication (without gastrostomy tube) procedure Family History Father PNA (pneumonia) Prostate cancer Mother Kidney failure Grandfather Cancer Daughter Hemiplegic migraine Ovarian cyst Social History household members: spouse and family housing: house marital status: occupational status: retired 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 Has 2 children physical activity: none smoking status: Former smoker quit date: 05/04/98 pack-years: 20 alcohol intake frequency: holiday/special occasion only substance use type: does not use MEDS/ALLERGIES Home Medications and Allergies Home Medications Medication Instructions Recorded Confirmed Type cetirizine 10 mg capsule 10 mg PO QDAY 08/05/19 02/27/22 History diphenhydramine HCl 25 mg tablet 25 - 50 mg PO QHS PRN Allergy 12/05/21 02/27/22 History (Benadryl Allergy) Symptoms dextromethorphan-guaifenesin 10 10 ml PO Q4HP PRN Cough #500 mL 01/04/22 02/27/22 Rx mg-100 mg/5 mL oral liquid (Diabetic Tussin DM) ipratropium 0.5 mg-albuterol 3 mg 3 ml inhalation Q4HRT PRN Wheezing 01/21/22 02/27/22 Rx (2.5 mg base)/3 mL nebulization #100 mL soln omeprazole 40 mg capsule,delayed 40 mg PO QDAY #90 caps 03/12/22 Rx release Electric mobility scooter #1 ea 03/19/22 Rx albuterol sulfate 90 mcg/actuation 2 puff inhalation Q4HP PRN 04/08/22 Rx aerosol inhaler Shortness Of Breath #8.5 grams umeclidinium 62.5 mcg-vilanterol 1 inh inhalation Q24H #60 ea 04/10/22 Rx 25 mcg/actuation powdr for inhalation (Anoro Ellipta) Allergies Allergy/AdvReac Type Severity Reaction Status Date / Time naproxen AdvReac Intermediate purple Verified 01/16/22 15:32 spots on face EXAM Constitutional Vitals: Pulse Resp BP Pulse Ox O2 Del Method O2 Flow Rate 102 H 27 H 133/96 95 40 04/13/22 08:57 04/13/22 08:57 04/13/22 08:46 04/13/22 08:57 04/13/22 06:11 04/13/22 06:11 General appearance: cooperative, mild distress and thin Head Head exam: Present atraumatic and normocephalic Eye Eye exam: Present EOMI and PERRL ENT ENT exam: Present mucous membranes moist, normal exam and normal external ear exam Additional comments: High flow oxygen in place Neck Neck exam: Present normal inspection; Absent lymphadenopathy, tenderness or thyromegaly Respiratory Respiratory exam: Present decreased breath sounds and wheezes; Absent accessory muscle use or respiratory distress Cardiovascular Cardiovascular exam: Present normal rate and rhythm; Absent JVD GI/Abdominal GI/Abdominal exam: Present normal bowel sounds and soft; Absent organomegaly or tenderness Rectal Rectal exam: Present deferred Extremities Exam Extremities exam: Present full ROM, normal capillary refill and normal inspection; Absent tenderness Neurological Exam Neurological exam: Present alert, CN II-XII intact and oriented X3; Absent motor sensory deficit Psychiatric Psychiatric exam: Present normal affect and normal mood; Absent anxious or depressed Skin Skin exam: Present dry and intact DATA Data Completed and Pending Labs: Labs from last 24 hours 04/13/22 04/13/22 04/13/22 07:07 06:34 06:01 WBC 19.3 H RBC 4.52 L Hgb 12.1 L Hct 38.4 L POC Hct MCV 85.0 MCH 26.8 MCHC 31.5 RDW 13.4 Plt Count 315 MPV 11.1 Immature Gran % (Auto) 0.5 Neut % (Auto) 82.6 H Lymph % (Auto) 7.0 L Vance % (Auto) 7.0 Eos % (Auto) 2.6 Baso % (Auto) 0.3 Lymph # (Auto) 1.35 L Vance # (Auto) 1.35 H Eos # (Auto) 0.50 Baso # (Auto) 0.06 Immature Gran # 0.09 H Absolute Neutrophils 15.90 H POC VBG pH 7.42 POC VBG pCO2 at Temp 51.4 H POC VBG pO2 22 L POC VBG HCO3 32.9 H POC VBG Total CO2 34.0 H POC Venous O2 Sat 37.0 L POC VBG Base Excess 8.0 H* VBG Lactic Acid 0.6 POC Sodium POC Potassium POC Chloride POC Total CO2 POC BUN POC Creatinine POC Glucose POC WB Ioniz Calcium POC Troponin I < 0.02 04/13/22 06:01 WBC RBC Hgb Hct POC Hct 39.0 L MCV MCH MCHC RDW Plt Count MPV Immature Gran % (Auto) Neut % (Auto) Lymph % (Auto) Vance % (Auto) Eos % (Auto) Baso % (Auto) Lymph # (Auto) Vance # (Auto) Eos # (Auto) Baso # (Auto) Immature Gran # Absolute Neutrophils POC VBG pH POC VBG pCO2 at Temp POC VBG pO2 POC VBG HCO3 POC VBG Total CO2 POC Venous O2 Sat POC VBG Base Excess VBG Lactic Acid POC Sodium 142 POC Potassium 3.4 POC Chloride 103 POC Total CO2 32.0 H POC BUN 12 POC Creatinine 0.9 POC Glucose 111 H POC WB Ioniz Calcium 1.15 L POC Troponin I A/P Assessment and plan (1) Acute and chronic respiratory failure with hypoxia: Status: Acute (2) COPD exacerbation: Status: Acute (3) Pulmonary fibrosis determined by high resolution computed tomography: Status: Chronic (4) Anemia, normocytic normochromic: Status: Acute Narrative A/P Narrative: Assessment and Plans: 1. Acute on chronic respiratory failure with hypoxia and hypercapnia, secondary to advanced pulmonary fibrosis and COPD with exacerbation: Inpatient PCU High flow oxygen, continue to wean down as tolerated Solu-Medrol Azithromycin DuoNEB NEB q4hr scheduled Continue other bronchodilators from home regimen Robitussin DM PRN cough Tessalon PRN cough Ativan PRN anxiety Physical therapy 2. Anemia, normocytic normochromic: cbc w/ auto diff in the morning to trend H/H, transfuse if active blood loss or hemoglobin <7.0, or if patient becomes symptomatic GI ppx: Prilosec DVT ppx: Lovenox Code status: DNR Prognosis: guarded Disposition: inpatient PCU; PT Time Spent With Patient Time: Total time spent is greater than 50% in coordination of care (as documented) at patient's floor/unit and/or counseling patient: Total time spent with greater than 50% in coordination of care (as documented) at patient's floor/unit and/or counseling patient:: 50 - 70 minutes
[2022-04-13] MEDS ORDERED: SENNOSIDES 1 TABLET PO PRN (09:38)
[2022-04-13] MEDS ORDERED: LACTULOSE 20 GM/30 ML ORAL.SOL PO PRN (09:38)
[2022-04-13] MEDS ORDERED: ONDANSETRON 4 MG/2 ML VIAL IV PRN (09:38)
[2022-04-13] MEDS: DOCUSATE SODIUM 100 MG CAPSULE PO SCH ×2 (09:51→21:06)
--- NOTE | 2022-04-13 09:51 | EKG ---
[facility] Test Date: 2022-04-13 Pat Name: Ned Fortune Department: ED Room: Gender: Male Caregivers Non Medical: ISMA : [id number] Requested By: Xavi Newton Order Number: [id number] Reading MD: Jasbir Lopez Measurements Intervals [place] Rate: 96 P: 18 MT: 135 QRS: -18 QRSD: 79 T: -15 QT: 358 QTc: 452 Interpretive Statements Sinus rhythm Borderline left axis deviation Borderline T abnormalities, anterior leads Electronically Signed On 04-13-2022 9:50:54 PST by Jasbir Lopez /store/M0/[id number]
[2022-04-13] MEDS: ACETAMINOPHEN 325 MG TABLET PO PRN ×2 (10:17→21:06)
[2022-04-13] MEDS: AZITHROMYCIN 250 MG TABLET PO SCH (10:17)
[2022-04-13] MEDS: ENOXAPARIN 40 MG/0.4 ML SYRINGE SQ SCH (10:18)
[2022-04-13] MEDS ORDERED: ALBUTEROL SULFATE 60 PUFF INHALER INH PRN (10:47)
[2022-04-13] MEDS ORDERED: guaiFENesin/DEXTROMETHORPHAN ORAL SOL PO PRN (10:47)
[2022-04-13] MEDS: IPRATROPIUM/ALBUTEROL 3 ML AMPUL.NEB NEB SCH ×4 (11:05→22:52)
[2022-04-13] MEDS: 0.9 % SODIUM CHLORIDE 10 ML SYRINGE IV SCH ×2 (13:44→21:07)
[2022-04-13] MEDS: methylPREDNISolone SOD SUCC 125 MG/2 ML VIAL IV SCH ×2 (13:44→21:07)
[2022-04-13] MEDS ORDERED: POTASSIUM CHLORIDE 20 MEQ TABLET PO ONE (18:18)
[2022-04-13] MEDS: diphenhydrAMINE 25 MG CAPSULE PO SCH (21:05)
[2022-04-13] MEDS: LORazepam 1 MG TABLET PO PRN (21:05)
[2022-04-13] MEDS: BENZONATATE 100 MG CAPSULE PO PRN (21:23)
[2022-04-14] MEDS: IPRATROPIUM/ALBUTEROL 3 ML AMPUL.NEB NEB SCH ×2 (03:22→06:58)
[2022-04-14] MEDS: methylPREDNISolone SOD SUCC 125 MG/2 ML VIAL IV SCH ×3 (05:54→21:19)
[2022-04-14] MEDS: 0.9 % SODIUM CHLORIDE 10 ML SYRINGE IV SCH ×3 (05:55→21:33)
[2022-04-14 07:17] LABS: Basophils # (Auto) 0.02 K/mcL (0.00-0.30); Basophils % (Auto) 0.1 % (0.0-2.0); Eosinophils # (Auto) 0 K/mcL (0.00-0.70); Eosinophils % (Auto) 0 % (0.0-7.0); Hematocrit 38.9 % (40.1-51.0); Hemoglobin 11.9 g/dL (13.7-17.5); Lymphocytes # (Auto) 0.72 K/mcL (1.50-4.80); Lymphocytes % (Auto) 3.1 % (15.5-49.0); Mean Cell Volume 86.8 fL (80.0-100.0); Mean Corpuscular HGB Conc 30.6 g/dL (31.0-36.0); Mean Platelet Volume 11.4 fL (8.8-12.5); Monocytes # (Auto) 0.27 K/mcL (0.10-0.90); Monocytes % (Auto) 1.2 % (1.0-12.0); Platelet Count 324 K/mcL (140-440); RBC 4.48 M/mcL (4.63-6.08); Red Cell Distribution Width 13.3 % (11.5-14.5); WBC 23.1 K/mcL (4.5-11.0)
--- NOTE | 2022-04-14 07:28 | Internal Med Progress Note ---
SUBJECTIVE Subjective Patient information: Note initiated : 04/14/22 at 7:25 am Service Date, if different from initiated Date: [] Patient: Ned Fortune 57 y/o M admitted on 04/13/22 for Shortness of breath. Chief Complaint: [] Interval history: Mr. Fortune is a 57 year old M history of COPD, advanced pulmonary fibrosis, presenting with 1 week history of worsening degree of shortness of breath. He is also complaining of productive cough with clear sputum and respiratory wheezings. He is complaining of right-sided rib pains when he coughs. He denies any general body weakness. He denies any fever, chills, or diaphoresis. He is coming of dyspnea on exertions with any physical activities. His baseline 1 week ago he uses 4 to 6 L of oxygen's, but over the past week, he used up to 8 to 10 L/min of oxygen's. CEPHEID screening negative for RSV, COVID, and influenza. Labs otherwise significant for leukocytosis with WBC 19.3, around his baseline. CTA of the chest negative for pulmonary embolism. Shows advanced pulmonary fibrosis, no focal pulmonary infiltrates. He was placed on high flow oxygen therapy, and admission request was called for acute on chronic respiratory failure secondary to advanced pulmonary fibrosis and COPD exac erbations. 04/14: Afebrile overnight. Patient is currently on high flow oxygen 30 L/min FiO2 60%. Patient is feeling his degree of shortness of breath has greatly improved this morning relative to yesterday. He denies any cough or respiratory wheezings. He denies any chest tightness. He denies any anxiety. He denies any subjective fever, chills, or diaphoresis. Continue to wean supplemental oxygen as tolerated by the patient's. Continue Solu-Medrol, DuoNeb, and azithromycin. Continue to offer Robitussin, Tessalon, and Ativan for cough suppressants and for anxiety, respectively. Physical therapy evaluation and treatments for placement planning. Constitutional Vitals: Vital Signs Temp Pulse Resp BP Pulse Ox O2 Del Method O2 Flow Rate 36.4 C 99 H 20 96/71 100 30 04/14/22 04:01 04/14/22 06:58 04/14/22 06:58 04/14/22 06:01 04/14/22 06:58 04/14/22 06:58 04/14/22 06:58 Period Temp Pulse Resp BP Sys/Ashraf Pulse Ox O2 Del Method O2 Flow Rate Last 24 Hr 36.4 C-36.8 C 84-123 17-44 91-155/58-113 88-100 Heated High Flow Nasal Ca-Heated High Flow Nasal Ca 30-60 Intake and Output 04/13/22 04/14/22 04/14/22 19:59 03:59 11:59 Intake Total 1355 100 Output Total 250 200 Balance 1105 -200 100 Intake & Output: Intake & Output 04/13/22 04/14/22 04/14/22 19:59 03:59 11:59 Intake Total 1355 100 Output Total 250 200 Balance 1105 -200 100 Intake: Oral 1355 100 Output: Void Amount 250 200 Other: Meal Dinner Percent of Meal Consumed 50% Feeding Ability Assist with Tray Set Up Urine Appearance Clear Clear Urine Color Dark Yellow Dark Yellow Urine Odor Normal # Bowel Movements 0 General appearance: cooperative, no acute distress and thin Head Head exam: Present atraumatic and normal inspection Eye Eye exam: Present normal appearance ENT ENT exam: Present mucous membranes moist, normal exam and normal external ear exam Additional comments: High flow oxygen in place Neck Neck exam: Present normal inspection Respiratory Respiratory exam: Present decreased breath sounds and rhonchi Cardiovascular Cardiovascular exam: Present normal rate and rhythm GI/Abdominal GI/Abdominal exam: Present normal bowel sounds Back Exam Back exam: Present normal inspection Neurological Exam Neurological exam: Present alert and oriented X3 Skin Skin exam: Present intact and warm OBJ DATA Labs CBC & Chem 7: 04/14/22 05:03 04/14/22 05:03 Labs: Abnormal Lab Results 04/14/22 04/13/22 04/13/22 05:03 07:07 06:34 WBC 23.1 H 19.3 H RBC 4.48 L 4.52 L Hgb 11.9 L 12.1 L Hct 38.9 L 38.4 L POC Hct MCHC 30.6 L Immature Gran % (Auto) 0.6 H Neut % (Auto) 95.0 H 82.6 H Lymph % (Auto) 3.1 L 7.0 L Lymph # (Auto) 0.72 L 1.35 L [place] # (Auto) 1.35 H Immature Gran # 0.15 H 0.09 H Absolute Neutrophils 21.94 H 15.90 H POC VBG pCO2 at Temp 51.4 H POC VBG pO2 22 L POC VBG HCO3 32.9 H POC VBG Total CO2 34.0 H POC Venous O2 Sat 37.0 L POC VBG Base Excess 8.0 H* POC Total CO2 POC Glucose POC WB Ioniz Calcium 04/13/22 06:01 WBC RBC Hgb Hct POC Hct 39.0 L MCHC Immature Gran % (Auto) Neut % (Auto) Lymph % (Auto) Lymph # (Auto) [place] # (Auto) Immature Gran # Absolute Neutrophils POC VBG pCO2 at Temp POC VBG pO2 POC VBG HCO3 POC VBG Total CO2 POC Venous O2 Sat POC VBG Base Excess POC Total CO2 32.0 H POC Glucose 111 H POC WB Ioniz Calcium 1.15 L Meds: Medications Acetaminophen (Acetaminophen 325 Mg Tablet) 650 mg PO Q6HP PRN; Protocol PRN Reason: Per Pain Protocol/Fever > 101 Last Admin: 04/13/22 21:06 Dose: 650 mg Albuterol Sulfate (Albuterol Sulfate 60 Puff Inhaler) 2 puff INH Q4HP PRN PRN Reason: Shortness Of Breath Albuterol/Ipratropium (Ipratropium/Albuterol 3 Ml Ampul.Neb) 3 ml NEB Q4HRT [facility] Last Admin: 04/14/22 06:58 Dose: 3 ml Albuterol/Ipratropium (Ipratropium/Albuterol 3 Ml Ampul.Neb) 3 ml NEB Q4HRT PRN PRN Reason: Wheezing Azithromycin (Azithromycin 250 Mg Tablet) 250 mg PO DAILY [facility]; Protocol Stop: 04/16/22 09:01 Last Admin: 04/13/22 10:17 Dose: 250 mg Benzonatate (Benzonatate 100 Mg Capsule) 200 mg PO TIDP PRN PRN Reason: Cough Last Admin: 04/13/22 21:23 Dose: 200 mg Cetirizine HCl (Cetirizine 10 Mg Tablet) 10 mg PO QDAY [facility] Diphenhydramine HCl (Diphenhydramine 25 Mg Capsule) 25 mg PO BID [facility] Last Admin: 04/13/22 21:05 Dose: 25 mg Docusate Sodium (Docusate Sodium 100 Mg Capsule) 100 mg PO BID [facility] Last Admin: 04/13/22 21:06 Dose: 100 mg Enoxaparin Sodium (Enoxaparin 40 Mg/0.4 Ml Syringe) 40 mg SQ DAILY [facility] Last Admin: 04/13/22 10:18 Dose: 40 mg Guaifenesin (Guaifenesin/Dextromethorphan Oral Alexus) 10 ml PO Q4HP PRN PRN Reason: Cough Lactulose (Lactulose 20 Gm/30 Ml Oral.Alexus) 10 gm PO DAILYP PRN PRN Reason: Constipation Lorazepam (Lorazepam 1 Mg Tablet) 1 mg PO Q6HP PRN PRN Reason: ANXIETY/SEDATION Last Admin: 04/13/22 21:05 Dose: 1 mg Methylprednisolone Sodium Succinate (Methylprednisolone Sod Succ 125 Mg/2 Ml Vial) 125 mg IV Q8 [facility] Last Admin: 04/14/22 05:54 Dose: 125 mg Omeprazole (Omeprazole 20 Mg Capsule) 40 mg PO QDAY [facility] Ondansetron HCl (Ondansetron 4 Mg/2 Ml Vial) 4 mg IV Q4HP PRN; Protocol PRN Reason: Nausea And Vomiting Umeclidinium- Vilanterol [Anoro Ellipta] 62.5-25 Mg 1 dose INH Q24H [facility] Last Admin: 04/13/22 12:00 Dose: 1 dose Potassium Chloride (Potassium Chloride 20 Meq Tablet) 20 meq PO BIDCC NANCY Senna (Sennosides 1 Tablet) 2 tab PO HSP PRN PRN Reason: Constipation Sodium Chloride (0.9 % Sodium Chloride 10 Ml Syringe) 10 ml IV Q8 [facility] Last Admin: 04/14/22 05:55 Dose: 10 ml A/P Assessment and plan (1) Acute and chronic respiratory failure with hypoxia: Status: Acute (2) COPD exacerbation: Status: Acute (3) Pulmonary fibrosis determined by high resolution computed tomography: Status: Chronic (4) Anemia, normocytic normochromic: Status: Acute Narrative A/P Narrative: Assessment and Plans: 1. Acute on chronic respiratory failure with hypoxia and hypercapnia, secondary to advanced pulmonary fibrosis and COPD with exacerbation: Inpatient PCU with telemetry High flow oxygen, currently on 30L/min FiO2 60%, continue to wean down as tolerated Solu-Medrol Azithromycin DuoNEB NEB q4hr scheduled Continue other bronchodilators from home regimen Robitussin DM PRN cough Tessalon PRN cough Ativan PRN anxiety Physical therapy 2. Anemia, normocytic normochromic: cbc w/ auto diff in the morning to trend H/H, transfuse if active blood loss or hemoglobin <7.0, or if patient becomes symptomatic GI ppx: Prilosec DVT ppx: Lovenox Code status: DNR Prognosis: extremely guarded Disposition: inpatient PCU; PT Time Spent With Patient Time: Total time spent is greater than 50% in coordination of care (as documented) at patient's floor/unit and/or counseling patient: Total time spent with greater than 50% in coordination of care (as documented) at patient's floor/unit and/or counseling patient:: 25 - 35 minutes QUALITY VTE Deep Vein Thrombosis/Pulmonary Embolism Present on Admission: No
[2022-04-14 07:54] LABS: ALT/SGPT 9 U/L (<40); AST/SGOT 18 U/L (<40); Albumin 3.2 gm/dL (3.2-5.2); Albumin/Globulin Ratio 0.7 (1.0-2.3); Alkaline Phosphatase 110 U/L (39-117); Bilirubin,Total 0.2 mg/dL (0.1-1.0); Blood Urea Nitrogen 12 mg/dL (6-20); Calcium 9.2 mg/dL (8.6-10.4); Carbon Dioxide 24 mmol/L (22-30); Chloride 101 mmol/L (96-108); Globulin 4.3 gm/dL (2.2-3.7); Glomerular Filtration Rate 103; Glucose 111 mg/dL (70-105)
[2022-04-14] MEDS: POTASSIUM CHLORIDE 20 MEQ TABLET PO SCH ×2 (08:12→17:23)
[2022-04-14] MEDS: AZITHROMYCIN 250 MG TABLET PO SCH (09:00)
[2022-04-14] MEDS: CETIRIZINE 10 MG TABLET PO SCH (09:00)
[2022-04-14] MEDS: DOCUSATE SODIUM 100 MG CAPSULE PO SCH ×2 (09:00→21:33)
[2022-04-14] MEDS: diphenhydrAMINE 25 MG CAPSULE PO SCH ×2 (09:00→21:19)
[2022-04-14] MEDS: ENOXAPARIN 40 MG/0.4 ML SYRINGE SQ SCH (09:00)
[2022-04-14] MEDS: OMEPRAZOLE 20 MG CAPSULE PO SCH (09:00)
[2022-04-14] MEDS: ACETAMINOPHEN 325 MG TABLET PO PRN ×2 (09:04→19:18)
[2022-04-14] MEDS: IPRATROPIUM/ALBUTEROL 3 ML AMPUL.NEB NEB PRN (11:07)
--- NOTE | 2022-04-14 13:14 | Internal Med Progress Note ---
SUBJECTIVE Subjective Patient information: Note initiated : 04/14/22 at 1:09 pm Service Date, if different from initiated Date: [] Patient: Ned Fortune 57 y/o M admitted on 04/13/22 for Shortness of breath. Chief Complaint: [] Interval history: Mr. Fortune is a 57 year old M history of COPD, advanced pulmonary fibrosis, presenting with 1 week history of worsening degree of shortness of breath. He is also complaining of productive cough with clear sputum and respiratory wheezings. He is complaining of right-sided rib pains when he coughs. He denies any general body weakness. He denies any fever, chills, or diaphoresis. He is coming of dyspnea on exertions with any physical activities. His baseline 1 week ago he uses 4 to 6 L of oxygen's, but over the past week, he used up to 8 to 10 L/min of oxygen's. CEPHEID screening negative for RSV, COVID, and influenza. Labs otherwise significant for leukocytosis with WBC 19.3, around his baseline. CTA of the chest negative for pulmonary embolism. Shows advanced pulmonary fibrosis, no focal pulmonary infiltrates. He was placed on high flow oxygen therapy, and admission request was called for acute on chronic respiratory failure secondary to advanced pulmonary fibrosis and COPD exac erbations. 04/14: Afebrile overnight. Patient is currently on high flow oxygen 30 L/min FiO2 60%. Patient is feeling his degree of shortness of breath has greatly improved this morning relative to yesterday. He denies any cough or respiratory wheezings. He denies any chest tightness. He denies any anxiety. He denies any subjective fever, chills, or diaphoresis. Continue to wean supplemental oxygen as tolerated by the patient's. Continue Solu-Medrol, DuoNeb, and azithromycin. Continue to offer Robitussin, Tessalon, and Ativan for cough suppressants and for anxiety, respectively. Physical therapy evaluation and treatments for placement planning. Constitutional Vitals: Vital Signs Temp Pulse Resp BP Pulse Ox O2 Del Method O2 Flow Rate 97.9 F 131 H 39 H 125/88 96 30 04/14/22 12:00 04/14/22 12:00 04/14/22 12:00 04/14/22 12:04/14/22 12:04/14/22 12:22 12:00 Period Temp Pulse Resp BP Sys/Ashraf Pulse Ox O2 Del Method O2 Flow Rate Last 24 Hr 97.4 F-98.2 F 84-131 16-44 91-134/58-106 89-100 Heated High Flow Nasal Ca-Heated High Flow Nasal Ca 20-50 Intake and Output 04/14/22 04/14/22 04/14/22 03:59 11:59 19:59 Intake Total 580 Output Total 200 200 Balance -200 380 Intake & Output: Intake & Output 04/14/22 04/14/22 04/14/22 03:59 11:59 19:59 Intake Total 580 Output Total 200 200 Balance -200 380 Intake: Oral 580 Output: Void Amount 200 200 Other: Meal Breakfast Percent of Meal Consumed 75% Feeding Ability Independent Urine Appearance Clear Urine Color Dark Yellow # Bowel Movements 0 Exam: General: Alert, Awake, No acute Distress Eyes/N/T: EOMI, Head/Neck: neck supple, normocephalic atraumatic CV: RRR, No murmurs, Pulm: Decreased and rhonchi b/l, no Abd: soft, nontender, +BS x4 Ext: no clubbing/cyanosis/edema Neuro: Alert, no focal deficits, moves all extremities, Skin: warm/dry OBJ DATA Labs CBC & Chem 7: 04/14/22 05:03 04/14/22 05:03 Labs: Abnormal Lab Results 04/14/22 04/14/22 04/13/22 05:03 05:03 07:07 WBC 23.1 H RBC 4.48 L Hgb 11.9 L Hct 38.9 L POC Hct MCHC 30.6 L Immature Gran % (Auto) 0.6 H Neut % (Auto) 95.0 H Lymph % (Auto) 3.1 L Lymph # (Auto) 0.72 L [place] # (Auto) Immature Gran # 0.15 H Absolute Neutrophils 21.94 H POC VBG pCO2 at Temp 51.4 H POC VBG pO2 22 L POC VBG HCO3 32.9 H POC VBG Total CO2 34.0 H POC Venous O2 Sat 37.0 L POC VBG Base Excess 8.0 H* POC Total CO2 Glucose 111 H POC Glucose POC WB Ioniz Calcium Globulin 4.3 H Albumin/Globulin Ratio 0.7 L 04/13/22 04/13/22 06:34 06:01 WBC 19.3 H RBC 4.52 L Hgb 12.1 L Hct 38.4 L POC Hct 39.0 L MCHC Immature Gran % (Auto) Neut % (Auto) 82.6 H Lymph % (Auto) 7.0 L Lymph # (Auto) 1.35 L [place] # (Auto) 1.35 H Immature Gran # 0.09 H Absolute Neutrophils 15.90 H POC VBG pCO2 at Temp POC VBG pO2 POC VBG HCO3 POC VBG Total CO2 POC Venous O2 Sat POC VBG Base Excess POC Total CO2 32.0 H Glucose POC Glucose 111 H POC WB Ioniz Calcium 1.15 L Globulin Albumin/Globulin Ratio Meds: Medications Acetaminophen (Acetaminophen 325 Mg Tablet) 650 mg PO Q6HP PRN; Protocol PRN Reason: Per Pain Protocol/Fever > 101 Last Admin: 04/14/22 09:04 Dose: 650 mg Albuterol Sulfate (Albuterol Sulfate 60 Puff Inhaler) 2 puff INH Q4HP PRN PRN Reason: Shortness Of Breath Albuterol/Ipratropium (Ipratropium/Albuterol 3 Ml Ampul.Neb) 3 ml NEB Q4HRT PRN PRN Reason: Wheezing Last Admin: 04/14/22 11:07 Dose: 3 ml Azithromycin (Azithromycin 250 Mg Tablet) 250 mg PO DAILY [facility]; Protocol Stop: 04/16/22 09:01 Last Admin: 04/14/22 09:00 Dose: 250 mg Benzonatate (Benzonatate 100 Mg Capsule) 200 mg PO TIDP PRN PRN Reason: Cough Last Admin: 04/13/22 21:23 Dose: 200 mg Cetirizine HCl (Cetirizine 10 Mg Tablet) 10 mg PO QDAY [facility] Last Admin: 04/14/22 09:00 Dose: 10 mg Diphenhydramine HCl (Diphenhydramine 25 Mg Capsule) 25 mg PO BID [facility] Last Admin: 04/14/22 09:00 Dose: 25 mg Docusate Sodium (Docusate Sodium 100 Mg Capsule) 100 mg PO BID [facility] Last Admin: 04/14/22 09:00 Dose: Not Given Enoxaparin Sodium (Enoxaparin 40 Mg/0.4 Ml Syringe) 40 mg SQ DAILY [facility] Last Admin: 04/14/22 09:00 Dose: 40 mg Guaifenesin (Guaifenesin/Dextromethorphan Oral Alexus) 10 ml PO Q4HP PRN PRN Reason: Cough Lactulose (Lactulose 20 Gm/30 Ml Oral.Alexus) 10 gm PO DAILYP PRN PRN Reason: Constipation Lorazepam (Lorazepam 1 Mg Tablet) 1 mg PO Q6HP PRN PRN Reason: ANXIETY/SEDATION Last Admin: 04/13/22 21:05 Dose: 1 mg Methylprednisolone Sodium Succinate (Methylprednisolone Sod Succ 125 Mg/2 Ml Vial) 125 mg IV Q8 [facility] Last Admin: 04/14/22 05:54 Dose: 125 mg Omeprazole (Omeprazole 20 Mg Capsule) 40 mg PO QDAY [facility] Last Admin: 04/14/22 09:00 Dose: 40 mg Ondansetron HCl (Ondansetron 4 Mg/2 Ml Vial) 4 mg IV Q4HP PRN; Protocol PRN Reason: Nausea And Vomiting Umeclidinium- Vilanterol [Anoro Ellipta] 62.5-25 Mg 1 dose INH Q24H [facility] Last Admin: 04/14/22 10:57 Dose: 1 dose Potassium Chloride (Potassium Chloride 20 Meq Tablet) 20 meq PO BIDCC [facility] Last Admin: 04/14/22 08:12 Dose: 20 meq Senna (Sennosides 1 Tablet) 2 tab PO HSP PRN PRN Reason: Constipation Sodium Chloride (0.9 % Sodium Chloride 10 Ml Syringe) 10 ml IV Q8 [facility] Last Admin: 04/14/22 05:55 Dose: 10 ml A/P Narrative A/P Narrative: Assessment and Plans: *Acute on chronic hypoxic/hypercapnic respiratory failure: 2/2 pulmonary fibrosis & AECOPD -High flow oxygen, currently on 30L/min FiO2 60%, continue to wean down as tolerated *AECOPD and Pulmonary fibrosos (4-6L O2@home): -Solu-Medrol (wean), nebs, RT, Continue other bronchodilators from home regimen -Azithromycin -Ativan PRN anxiety *Anemia, normocytic normochromic: cbc f/u and trend H/H, transfuse if active blood loss, hemoglobin <7.0, or symptomatic *GERD: *ppx: Lovenox / home ppi Code status: DNR Time Spent With Patient Time: Total time spent is greater than 50% in coordination of care (as documented) at patient's floor/unit and/or counseling patient: QUALITY VTE Deep Vein Thrombosis/Pulmonary Embolism Present on Admission: No
[2022-04-14] MEDS: guaiFENesin/DEXTROMETHORPHAN ORAL SOL PO PRN ×2 (14:09→21:21)
[2022-04-14] MEDS: BENZONATATE 100 MG CAPSULE PO PRN (21:19)
[2022-04-14] MEDS: LORazepam 1 MG TABLET PO PRN (21:19)
[2022-04-15] MEDS: methylPREDNISolone SOD SUCC 125 MG/2 ML VIAL IV SCH ×2 (05:57→14:25)
[2022-04-15] MEDS: 0.9 % SODIUM CHLORIDE 10 ML SYRINGE IV SCH ×4 (05:57→21:29)
--- NOTE | 2022-04-15 07:41 | Internal Med Progress Note ---
SUBJECTIVE Subjective Patient information: Note initiated : 04/15/22 at 7:33 am Service Date, if different from initiated Date: [] Patient: Ned Fortune 57 y/o M admitted on 04/13/22 for Shortness of breath. Chief Complaint: [] Interval history: Mr. Fortune is a 57 year old M history of COPD, advanced pulmonary fibrosis, presenting with 1 week history of worsening degree of shortness of breath. He is also complaining of productive cough with clear sputum and respiratory wheezings. He is complaining of right-sided rib pains when he coughs. He denies any general body weakness. He denies any fever, chills, or diaphoresis. He is coming of dyspnea on exertions with any physical activities. His baseline 1 week ago he uses 4 to 6 L of oxygen's, but over the past week, he used up to 8 to 10 L/min of oxygen's. CEPHEID screening negative for RSV, COVID, and influenza. Labs otherwise significant for leukocytosis with WBC 19.3, around his baseline. CTA of the chest negative for pulmonary embolism. Shows advanced pulmonary fibrosis, no focal pulmonary infiltrates. He was placed on high flow oxygen therapy, and admission request was called for acute on chronic respiratory failure secondary to advanced pulmonary fibrosis and COPD exac erbations. 04/14: Afebrile overnight. Patient is currently on high flow oxygen 30 L/min FiO2 60%. Patient is feeling his degree of shortness of breath has greatly improved this morning relative to yesterday. He denies any cough or respiratory wheezings. He denies any chest tightness. He denies any anxiety. He denies any subjective fever, chills, or diaphoresis. Continue to wean supplemental oxygen as tolerated by the patient's. Continue Solu-Medrol, DuoNeb, and azithromycin. Continue to offer Robitussin, Tessalon, and Ativan for cough suppressants and for anxiety, respectively. Physical therapy evaluation and treatments for placement planning. 04/15 Patient has cough but much improved and nonproductive. Shortness of breath is present but slowly improving. Still on Vapotherm high flow on FiO2. She does see Dr. Ramirez for his lungs. Leukocytosis, suspect steroid effect. Check manual differential and decreasing steroids and follow-up tomorrow Review of Systems: denies headache/fever/chills/nausea/vomiting/chest or abdominal pain/diarrhea. Otherwise see above. Constitutional Vitals: Vital Signs Temp Pulse Resp BP Pulse Ox O2 Del Method O2 Flow Rate 98.2 F 77 23 H 120/84 99 30 04/15/22 04:01 04/15/22 06:01 04/15/22 06:01 04/15/22 06:00 04/15/22 06:01 04/15/22 06:00 04/15/22 06:00 Period Temp Pulse Resp BP Sys/Ashraf Pulse Ox O2 Del Method O2 Flow Rate Last 24 Hr 97.3 F-98.7 F 73-131 16-39 98-145/71-106 23-100 Heated High Flow Nasal Ca-Heated High Flow Nasal Ca 20-30 Intake and Output 04/14/22 04/15/22 04/15/22 19:59 03:59 11:59 Intake Total 1000 390 Output Total 275 700 275 Balance 725 -310 -275 Weight 54.658 kg 54.386 kg Intake & Output: Intake & Output 04/14/22 04/15/22 04/15/22 19:59 03:59 11:59 Intake Total 1000 390 Output Total 275 700 275 Balance 725 -310 -275 Weight 54.658 kg 54.386 kg Intake: Oral 1000 390 Output: Void Amount 275 700 275 Other: Meal Lunch Percent of Meal Consumed 50% Feeding Ability Independent Urine Appearance Clear Clear Urine Color Dark Yellow Yellow # Bowel Movements 0 Exam: General: Alert, Awake, No acute Distress Eyes/N/T: EOMI, Head/Neck: neck supple, normocephalic atraumatic CV: RRR, No murmurs, Pulm: Decreased BS b/l, rhonchi b/l, Abd: soft, nontender, +BS x4 Ext: no clubbing/cyanosis/edema Neuro: Alert, no focal deficits, moves all extremities, Skin: warm/dry OBJ DATA Labs CBC & Chem 7: 04/15/22 05:33 04/15/22 05:33 Labs: Abnormal Lab Results 04/14/22 04/14/22 04/13/22 05:03 05:03 07:07 WBC 23.1 H RBC 4.48 L Hgb 11.9 L Hct 38.9 L POC Hct MCHC 30.6 L Immature Gran % (Auto) 0.6 H Neut % (Auto) 95.0 H Lymph % (Auto) 3.1 L Lymph # (Auto) 0.72 L [place] # (Auto) Immature Gran # 0.15 H Absolute Neutrophils 21.94 H POC VBG pCO2 at Temp 51.4 H POC VBG pO2 22 L POC VBG HCO3 32.9 H POC VBG Total CO2 34.0 H POC Venous O2 Sat 37.0 L POC VBG Base Excess 8.0 H* POC Total CO2 Glucose 111 H POC Glucose POC WB Ioniz Calcium Globulin 4.3 H Albumin/Globulin Ratio 0.7 L 04/13/22 04/13/22 06:34 06:01 WBC 19.3 H RBC 4.52 L Hgb 12.1 L Hct 38.4 L POC Hct 39.0 L MCHC Immature Gran % (Auto) Neut % (Auto) 82.6 H Lymph % (Auto) 7.0 L Lymph # (Auto) 1.35 L [place] # (Auto) 1.35 H Immature Gran # 0.09 H Absolute Neutrophils 15.90 H POC VBG pCO2 at Temp POC VBG pO2 POC VBG HCO3 POC VBG Total CO2 POC Venous O2 Sat POC VBG Base Excess POC Total CO2 32.0 H Glucose POC Glucose 111 H POC WB Ioniz Calcium 1.15 L Globulin Albumin/Globulin Ratio Meds: Medications Acetaminophen (Acetaminophen 325 Mg Tablet) 650 mg PO Q6HP PRN; Protocol PRN Reason: Per Pain Protocol/Fever > 101 Last Admin: 04/14/22 19:18 Dose: 650 mg Albuterol Sulfate (Albuterol Sulfate 60 Puff Inhaler) 2 puff INH Q4HP PRN PRN Reason: Shortness Of Breath Albuterol/Ipratropium (Ipratropium/Albuterol 3 Ml Ampul.Neb) 3 ml NEB Q4HRT PRN PRN Reason: Wheezing Last Admin: 04/14/22 11:07 Dose: 3 ml Azithromycin (Azithromycin 250 Mg Tablet) 250 mg PO DAILY [facility]; Protocol Stop: 04/16/22 09:01 Last Admin: 04/14/22 09:00 Dose: 250 mg Benzonatate (Benzonatate 100 Mg Capsule) 200 mg PO TIDP PRN PRN Reason: Cough Last Admin: 04/14/22 21:19 Dose: 200 mg Cetirizine HCl (Cetirizine 10 Mg Tablet) 10 mg PO QDAY [facility] Last Admin: 04/14/22 09:00 Dose: 10 mg Diphenhydramine HCl (Diphenhydramine 25 Mg Capsule) 25 mg PO BID [facility] Last Admin: 04/14/22 21:19 Dose: 25 mg Docusate Sodium (Docusate Sodium 100 Mg Capsule) 100 mg PO BID [facility] Last Admin: 04/14/22 21:33 Dose: Not Given Enoxaparin Sodium (Enoxaparin 40 Mg/0.4 Ml Syringe) 40 mg SQ DAILY [facility] Last Admin: 04/14/22 09:00 Dose: 40 mg Guaifenesin (Guaifenesin/Dextromethorphan Oral Alexus) 10 ml PO Q4HP PRN PRN Reason: Cough Last Admin: 04/14/22 21:21 Dose: 10 ml Lactulose (Lactulose 20 Gm/30 Ml Oral.Alexus) 10 gm PO DAILYP PRN PRN Reason: Constipation Lorazepam (Lorazepam 1 Mg Tablet) 1 mg PO Q6HP PRN PRN Reason: ANXIETY/SEDATION Last Admin: 04/14/22 21:19 Dose: 1 mg Methylprednisolone Sodium Succinate (Methylprednisolone Sod Succ 125 Mg/2 Ml Vial) 40 mg IV Q8 [facility] Last Admin: 04/15/22 05:57 Dose: 40 mg Omeprazole (Omeprazole 20 Mg Capsule) 40 mg PO QDAY [facility] Last Admin: 04/14/22 09:00 Dose: 40 mg Ondansetron HCl (Ondansetron 4 Mg/2 Ml Vial) 4 mg IV Q4HP PRN; Protocol PRN Reason: Nausea And Vomiting Umeclidinium- Vilanterol [Anoro Ellipta] 62.5-25 Mg 1 dose INH Q24H [facility] Last Admin: 04/14/22 10:57 Dose: 1 dose Potassium Chloride (Potassium Chloride 20 Meq Tablet) 20 meq PO BIDCC [facility] Last Admin: 04/14/22 17:23 Dose: 20 meq Senna (Sennosides 1 Tablet) 2 tab PO HSP PRN PRN Reason: Constipation Sodium Chloride (0.9 % Sodium Chloride 10 Ml Syringe) 10 ml IV Q8 [facility] Last Admin: 04/15/22 05:57 Dose: 10 ml A/P Narrative A/P Narrative: Assessment and Plans: *Acute on chronic hypoxic/hypercapnic respiratory failure: 2/2 pulmonary fibrosis & AECOPD -Vapotherm 30L/min & FiO2 60%, continue to wean down as tolerated -pt has poor reserves, desats easily *AECOPD and Pulmonary fibrosos (4-6L O2@home): -Solu-Medrol (wean), nebs, RT, Continue other bronchodilators from home regimen -Azithromycin -Ativan PRN anxiety *Anemia, normocytic normochromic: -cbc f/u and trend H/H, transfuse if active blood loss, hemoglobin <7.0, or symptomatic *Leukocytosis: chronic. obtain peripheral smear *GERD: *Goals of care: -prognosis guarded *ppx: Lovenox / home ppi Code status: DNR Time Spent With Patient Time: Total time spent is greater than 50% in coordination of care (as documented) at patient's floor/unit and/or counseling patient: Total time spent with greater than 50% in coordination of care (as documented) at patient's floor/unit and/or counseling patient:: 35 - 50 minutes QUALITY VTE Deep Vein Thrombosis/Pulmonary Embolism Present on Admission: No
[2022-04-15 08:00] LABS: Basophils # (Auto) 0.05 K/mcL (0.00-0.30); Basophils % (Auto) 0.1 % (0.0-2.0); Eosinophils # (Auto) 0 K/mcL (0.00-0.70); Eosinophils % (Auto) 0 % (0.0-7.0); Hemoglobin 12.1 g/dL (13.7-17.5); Lymphocytes # (Auto) 0.87 K/mcL (1.50-4.80); Lymphocytes % (Auto) 2.3 % (15.5-49.0); Mean Cell Volume 88.2 fL (80.0-100.0); Mean Corpuscular HGB Conc 31.8 g/dL (31.0-36.0); Mean Platelet Volume 11.2 fL (8.8-12.5); Monocytes # (Auto) 1.01 K/mcL (0.10-0.90); Monocytes % (Auto) 2.7 % (1.0-12.0); Neutrophils % (Auto) 93.9 % (38.0-78.0); Platelet Count 328 K/mcL (140-440); RBC 4.31 M/mcL (4.63-6.08); Red Cell Distribution Width 13.9 % (11.5-14.5); WBC 37.8 K/mcL (4.5-11.0)
[2022-04-15 08:01] LABS: ALT/SGPT 15 U/L (<40); AST/SGOT 20 U/L (<40); Albumin 3.5 gm/dL (3.2-5.2); Albumin/Globulin Ratio 0.9 (1.0-2.3); Alkaline Phosphatase 91 U/L (39-117); Bilirubin,Direct < 0.2 mg/dL (0-0.3); Bilirubin,Total 0.2 mg/dL (0.1-1.0); Blood Urea Nitrogen 16 mg/dL (6-20); Calcium 9.3 mg/dL (8.6-10.4); Carbon Dioxide 29 mmol/L (22-30); Chloride 100 mmol/L (96-108); Globulin 3.8 gm/dL (2.2-3.7); Glomerular Filtration Rate 98; Glucose 103 mg/dL (70-105); Lactate Dehydrogenase 169 U/L (135-225); Phosphorous 4.6 mg/dL (2.5-4.5); Triglycerides 80 mg/dL (<150); Uric Acid 3.4 mg/dL (2.5-8.0)
[2022-04-15] MEDS: POTASSIUM CHLORIDE 20 MEQ TABLET PO SCH ×2 (08:06→17:43)
[2022-04-15] MEDS: ENOXAPARIN 40 MG/0.4 ML SYRINGE SQ SCH (08:47)
[2022-04-15] MEDS: diphenhydrAMINE 25 MG CAPSULE PO SCH ×2 (08:47→21:27)
[2022-04-15] MEDS: DOCUSATE SODIUM 100 MG CAPSULE PO SCH ×2 (08:47→21:27)
[2022-04-15] MEDS: OMEPRAZOLE 20 MG CAPSULE PO SCH (08:48)
[2022-04-15] MEDS: AZITHROMYCIN 250 MG TABLET PO SCH (08:48)
[2022-04-15] MEDS: CETIRIZINE 10 MG TABLET PO SCH (08:48)
[2022-04-15] MEDS: ACETAMINOPHEN 325 MG TABLET PO PRN ×2 (08:48→21:27)
[2022-04-15] MEDS ORDERED: FLU VACC QS2022-23(6MOS UP)/PF 60 MCG/0.5 ML SYRINGE IM ONE (09:00)
[2022-04-15] MEDS: IPRATROPIUM/ALBUTEROL 3 ML AMPUL.NEB NEB PRN (09:07)
[2022-04-15] MEDS: methylPREDNISolone SOD SUCC 40 MG/ML VIAL IV SCH ×2 (14:14→21:28)
[2022-04-15] MEDS: LORazepam 1 MG TABLET PO PRN (21:27)
[2022-04-15] MEDS: BENZONATATE 100 MG CAPSULE PO PRN (21:27)
[2022-04-16] MEDS: 0.9 % SODIUM CHLORIDE 10 ML SYRINGE IV SCH ×4 (05:40→21:32)
[2022-04-16] MEDS: methylPREDNISolone SOD SUCC 40 MG/ML VIAL IV SCH ×2 (05:46→21:32)
[2022-04-16 06:45] LABS: Hematocrit 39.5 % (40.1-51.0); Hemoglobin 12.2 g/dL (13.7-17.5); Mean Cell Volume 85.9 fL (80.0-100.0); Mean Corpuscular HGB Conc 30.9 g/dL (31.0-36.0); Platelet Count 367 K/mcL (140-440); Red Cell Distribution Width 13.6 % (11.5-14.5); WBC 29.9 K/mcL (4.5-11.0)
--- NOTE | 2022-04-16 08:05 | Internal Med Progress Note ---
SUBJECTIVE Subjective Patient information: Note initiated : 04/16/22 at 8:02 am Service Date, if different from initiated Date: [] Patient: Ned Fortune 57 y/o M admitted on 04/13/22 for Shortness of breath. Chief Complaint: [] Interval history: Mr. Fortune is a 57 year old M history of COPD, advanced pulmonary fibrosis, presenting with 1 week history of worsening degree of shortness of breath. He is also complaining of productive cough with clear sputum and respiratory wheezings. He is complaining of right-sided rib pains when he coughs. He denies any general body weakness. He denies any fever, chills, or diaphoresis. He is coming of dyspnea on exertions with any physical activities. His baseline 1 week ago he uses 4 to 6 L of oxygen's, but over the past week, he used up to 8 to 10 L/min of oxygen's. CEPHEID screening negative for RSV, COVID, and influenza. Labs otherwise significant for leukocytosis with WBC 19.3, around his baseline. CTA of the chest negative for pulmonary embolism. Shows advanced pulmonary fibrosis, no focal pulmonary infiltrates. He was placed on high flow oxygen therapy, and admission request was called for acute on chronic respiratory failure secondary to advanced pulmonary fibrosis and COPD exac erbations. 04/14: Afebrile overnight. Patient is currently on high flow oxygen 30 L/min FiO2 60%. Patient is feeling his degree of shortness of breath has greatly improved this morning relative to yesterday. He denies any cough or respiratory wheezings. He denies any chest tightness. He denies any anxiety. He denies any subjective fever, chills, or diaphoresis. Continue to wean supplemental oxygen as tolerated by the patient's. Continue Solu-Medrol, DuoNeb, and azithromycin. Continue to offer Robitussin, Tessalon, and Ativan for cough suppressants and for anxiety, respectively. Physical therapy evaluation and treatments for placement planning. 04/15 Patient has cough but much improved and nonproductive. Shortness of breath is present but slowly improving. Still on Vapotherm high flow on FiO2. She does see Dr. Ramirez for his lungs. Leukocytosis, suspect steroid effect. Check manual differential and decreasing steroids and follow-up tomorrow 04/16 Still on Vapotherm. Making small improvements in oxygen requirements. Patient feeling little better every day. Leukocytosis slightly down from yesterday. Peripheral smear with no smudge cells or other acute pathology. Patient afebrile. Review of Systems: denies headache/fever/chills/nausea/vomiting/chest or abdominal pain/diarrhea. Otherwise see above. Constitutional Vitals: Vital Signs Temp Pulse Resp BP Pulse Ox O2 Del Method O2 Flow Rate 97.8 F 62 18 139/95 97 30 04/16/22 08:00 04/16/22 08:00 04/16/22 08:00 04/16/22 08:00 04/16/22 08:00 04/16/22 08:00 04/16/22 08:00 Period Temp Pulse Resp BP Sys/Ashraf Pulse Ox O2 Del Method O2 Flow Rate Last 24 Hr 97.1 F-97.8 F 58-126 18-41 110-139/81-97 85-100 Heated High Flow Nasal Ca-Heated High Flow Nasal Ca 25-45 Intake and Output 04/15/22 04/16/22 04/16/22 19:59 03:59 11:59 Intake Total 2920 180 Output Total 550 850 275 Balance 2370 -670 -275 Weight 55.338 kg Intake & Output: Intake & Output 04/15/22 04/16/22 04/16/22 19:59 03:59 11:59 Intake Total 2920 180 Output Total 550 850 275 Balance 2370 -670 -275 Weight 55.338 kg Intake: Oral 2920 180 Output: Void Amount 550 850 275 Other: Meal Dinner Percent of Meal Consumed 100% Feeding Ability Independent Urine Appearance Clear Clear Clear Urine Color Yellow Bright Yellow Yellow Urine Odor Normal Exam: General: Alert, Awake, No acute Distress Eyes/N/T: EOMI, Head/Neck: neck supple, normocephalic atraumatic CV: RRR, No murmurs, Pulm: mostly clear b/l, a few subtle fine rales b/l, Abd: soft, nontender, +BS x4 Ext: no clubbing/cyanosis/edema Neuro: Alert, no focal deficits, moves all extremities, Skin: warm/dry OBJ DATA Labs CBC & Chem 7: 04/16/22 06:02 04/15/22 05:33 Labs: Abnormal Lab Results 04/16/22 04/15/22 04/15/22 06:02 05:33 05:33 WBC 29.9 H 37.8 H* RBC 4.60 L 4.31 L Hgb 12.2 L 12.1 L Hct 39.5 L 38.0 L MCHC 30.9 L Immature Gran % (Auto) 1.0 H Neut % (Auto) 93.9 H Lymph % (Auto) 2.3 L Lymph # (Auto) 0.87 L [place] # (Auto) 1.01 H Immature Gran # 0.38 H Absolute Neutrophils 35.46 H Glucose Phosphorus 4.6 H Globulin 3.8 H Albumin/Globulin Ratio 0.9 L 04/14/22 04/14/22 05:03 05:03 WBC 23.1 H RBC 4.48 L Hgb 11.9 L Hct 38.9 L MCHC 30.6 L Immature Gran % (Auto) 0.6 H Neut % (Auto) 95.0 H Lymph % (Auto) 3.1 L Lymph # (Auto) 0.72 L [place] # (Auto) Immature Gran # 0.15 H Absolute Neutrophils 21.94 H Glucose 111 H Phosphorus Globulin 4.3 H Albumin/Globulin Ratio 0.7 L Meds: Medications Acetaminophen (Acetaminophen 325 Mg Tablet) 650 mg PO Q6HP PRN; Protocol PRN Reason: Per Pain Protocol/Fever > 101 Last Admin: 04/15/22 21:27 Dose: 650 mg Albuterol Sulfate (Albuterol Sulfate 60 Puff Inhaler) 2 puff INH Q4HP PRN PRN Reason: Shortness Of Breath Albuterol/Ipratropium (Ipratropium/Albuterol 3 Ml Ampul.Neb) 3 ml NEB Q4HRT PRN PRN Reason: Wheezing Last Admin: 04/15/22 09:07 Dose: 3 ml Azithromycin (Azithromycin 250 Mg Tablet) 250 mg PO DAILY NANCY; Protocol Stop: 04/16/22 09:01 Last Admin: 04/15/22 08:48 Dose: 250 mg Benzonatate (Benzonatate 100 Mg Capsule) 200 mg PO TIDP PRN PRN Reason: Cough Last Admin: 04/15/22 21:27 Dose: 200 mg Cetirizine HCl (Cetirizine 10 Mg Tablet) 10 mg PO QDAY NANCY Last Admin: 04/15/22 08:48 Dose: 10 mg Diphenhydramine HCl (Diphenhydramine 25 Mg Capsule) 25 mg PO BID [facility] Last Admin: 04/15/22 21:27 Dose: 25 mg Docusate Sodium (Docusate Sodium 100 Mg Capsule) 100 mg PO BID [facility] Last Admin: 04/15/22 21:27 Dose: 100 mg Enoxaparin Sodium (Enoxaparin 40 Mg/0.4 Ml Syringe) 40 mg SQ DAILY [facility] Last Admin: 04/15/22 08:47 Dose: 40 mg Guaifenesin (Guaifenesin/Dextromethorphan Oral Alexus) 10 ml PO Q4HP PRN PRN Reason: Cough Last Admin: 04/14/22 21:21 Dose: 10 ml Lactulose (Lactulose 20 Gm/30 Ml Oral.Alexus) 10 gm PO DAILYP PRN PRN Reason: Constipation Lorazepam (Lorazepam 1 Mg Tablet) 1 mg PO Q6HP PRN PRN Reason: ANXIETY/SEDATION Last Admin: 04/15/22 21:27 Dose: 1 mg Methylprednisolone Sodium Succinate (Methylprednisolone Sod Succ 40 Mg/Ml Vial) 40 mg IV Q8 [facility] Last Admin: 04/16/22 05:46 Dose: 40 mg Omeprazole (Omeprazole 20 Mg Capsule) 40 mg PO QDAY [facility] Last Admin: 04/15/22 08:48 Dose: 40 mg Ondansetron HCl (Ondansetron 4 Mg/2 Ml Vial) 4 mg IV Q4HP PRN; Protocol PRN Reason: Nausea And Vomiting Umeclidinium- Vilanterol [Anoro Ellipta] 62.5-25 Mg 1 dose INH Q24H [facility] Last Admin: 04/15/22 11:26 Dose: 1 dose Potassium Chloride (Potassium Chloride 20 Meq Tablet) 20 meq PO BIDCC [facility] Last Admin: 04/15/22 17:43 Dose: 20 meq Senna (Sennosides 1 Tablet) 2 tab PO HSP PRN PRN Reason: Constipation Sodium Chloride (0.9 % Sodium Chloride 10 Ml Syringe) 10 ml IV Q8 [facility] Last Admin: 04/16/22 05:47 Dose: 10 ml A/P Narrative A/P Narrative: Assessment and Plans: *Acute on chronic hypoxic/hypercapnic respiratory failure: 2/2 pulmonary fibrosis & AECOPD -Vapotherm 30L/min & FiO2 60%, continue to wean down as tolerated -pt has poor reserves, desats easily *AECOPD and Pulmonary fibrosos (4-6L O2@home): -Solu-Medrol (wean), nebs, RT, Continue other bronchodilators from home regimen -Azithromycin, Ativan PRN anxiety *Anemia, normocytic normochromic: -cbc f/u and trend H/H, transfuse if active blood loss, hemoglobin <7.0, or symptomatic *Leukocytosis: chronic. obtain peripheral smear, no smudge cells or other sig. path *GERD: *Goals of care: -prognosis guarded *ppx: Lovenox / home ppi Code status: DNR Time Spent With Patient Time: Total time spent is greater than 50% in coordination of care (as documented) at patient's floor/unit and/or counseling patient: Total time spent with greater than 50% in coordination of care (as documented) at patient's floor/unit and/or counseling patient:: 35 - 50 minutes QUALITY VTE Deep Vein Thrombosis/Pulmonary Embolism Present on Admission: No
[2022-04-16] MEDS: POTASSIUM CHLORIDE 20 MEQ TABLET PO SCH (08:37)
[2022-04-16] MEDS: AZITHROMYCIN 250 MG TABLET PO SCH (08:59)
[2022-04-16] MEDS: ENOXAPARIN 40 MG/0.4 ML SYRINGE SQ SCH (08:59)
[2022-04-16] MEDS: DOCUSATE SODIUM 100 MG CAPSULE PO SCH ×2 (08:59→21:31)
[2022-04-16] MEDS: CETIRIZINE 10 MG TABLET PO SCH (08:59)
[2022-04-16] MEDS: OMEPRAZOLE 20 MG CAPSULE PO SCH (08:59)
[2022-04-16] MEDS: diphenhydrAMINE 25 MG CAPSULE PO SCH ×2 (08:59→21:31)
[2022-04-16 10:02] LABS: Lymphocytes % 5 % (15-49); Monocytes % (Manual) 4 % (1-12); Platelet Estimate NORMAL (Normal); RBC Morphology NORMAL (Normal); Segmented Neutrophils % 91 % (38-78)
[2022-04-16] MEDS: BENZONATATE 100 MG CAPSULE PO PRN (21:31)
[2022-04-16] MEDS: LORazepam 1 MG TABLET PO PRN (21:31)
[2022-04-16] MEDS: ACETAMINOPHEN 325 MG TABLET PO PRN (21:31)
--- NOTE | 2022-04-17 07:40 | Internal Med Progress Note ---
SUBJECTIVE Subjective Patient information: Note initiated : 04/17/22 at 7:39 am Service Date, if different from initiated Date: [] Patient: Ned Fortune 57 y/o M admitted on 04/13/22 for Shortness of breath. Chief Complaint: [] Interval history: Mr. Fortune is a 57 year old M history of COPD, advanced pulmonary fibrosis, presenting with 1 week history of worsening degree of shortness of breath. He is also complaining of productive cough with clear sputum and respiratory wheezings. He is complaining of right-sided rib pains when he coughs. He denies any general body weakness. He denies any fever, chills, or diaphoresis. He is coming of dyspnea on exertions with any physical activities. His baseline 1 week ago he uses 4 to 6 L of oxygen's, but over the past week, he used up to 8 to 10 L/min of oxygen's. CEPHEID screening negative for RSV, COVID, and influenza. Labs otherwise significant for leukocytosis with WBC 19.3, around his baseline. CTA of the chest negative for pulmonary embolism. Shows advanced pulmonary fibrosis, no focal pulmonary infiltrates. He was placed on high flow oxygen therapy, and admission request was called for acute on chronic respiratory failure secondary to advanced pulmonary fibrosis and COPD exac erbations. 04/14: Afebrile overnight. Patient is currently on high flow oxygen 30 L/min FiO2 60%. Patient is feeling his degree of shortness of breath has greatly improved this morning relative to yesterday. He denies any cough or respiratory wheezings. He denies any chest tightness. He denies any anxiety. He denies any subjective fever, chills, or diaphoresis. Continue to wean supplemental oxygen as tolerated by the patient's. Continue Solu-Medrol, DuoNeb, and azithromycin. Continue to offer Robitussin, Tessalon, and Ativan for cough suppressants and for anxiety, respectively. Physical therapy evaluation and treatments for placement planning. 04/15 Patient has cough but much improved and nonproductive. Shortness of breath is present but slowly improving. Still on Vapotherm high flow on FiO2. She does see Dr. Ramirez for his lungs. Leukocytosis, suspect steroid effect. Check manual differential and decreasing steroids and follow-up tomorrow 04/16 Still on Vapotherm. Making small improvements in oxygen requirements. Patient feeling little better every day. Leukocytosis slightly down from yesterday. Peripheral smear with no smudge cells or other acute pathology. Patient afebrile. 04/17 Patient continues to feel gradually better. Last night is on 4 to 12 L high flow nasal cannula, Currently on 10. Awaiting follow-up CBC. Review of Systems: denies headache/fever/chills/nausea/vomiting/chest or abdominal pain/diarrhea. Otherwise see above. Constitutional Vitals: Vital Signs Temp Pulse Resp BP Pulse Ox O2 Del Method O2 Flow Rate 97.4 F 67 37 H 114/81 84 L 4 04/17/22 07:10 04/17/22 06:16 04/17/22 07:05 04/17/22 06:01 04/17/22 07:05 04/17/22 07:05 04/17/22 04:00 Period Temp Pulse Resp BP Sys/Ashraf Pulse Ox O2 Del Method O2 Flow Rate Last 24 Hr 97.0 F-97.8 F 62-115 18-37 109-143/81-104 84-100 Heated High Flow Nasal Ca-High Flow Nasal Cannula, Bubble Humidifier 4-30 Intake and Output 04/16/22 04/17/22 04/17/22 19:59 03:59 11:59 Intake Total 2120 Output Total 525 925 250 Balance 1595 -925 -250 Weight 55.202 kg Intake & Output: Intake & Output 04/16/22 04/17/22 04/17/22 19:59 03:59 11:59 Intake Total 2120 Output Total 525 925 250 Balance 1595 -925 -250 Weight 55.202 kg Intake: Oral 0 Output: Void Amount 525 925 250 Other: Meal Dinner Percent of Meal Consumed 100% Feeding Ability Independent Urine Appearance Clear Clear Urine Color Bright Yellow Yellow Urine Odor Normal Normal Exam: General: Alert, Awake, No acute Distress Eyes/N/T: EOMI, Head/Neck: neck supple, normocephalic atraumatic CV: RRR, No murmurs, Pulm: mostly clear b/l, a few subtle fine rales b/l, Abd: soft, nontender, +BS x4 Ext: no clubbing/cyanosis/edema Neuro: Alert, no focal deficits, moves all extremities, Skin: warm/dry OBJ DATA Labs CBC & Chem 7: 04/16/22 06:02 04/15/22 05:33 Labs: Abnormal Lab Results 04/16/22 04/15/22 04/15/22 06:02 05:33 05:33 WBC 29.9 H 37.8 H* RBC 4.60 L 4.31 L Hgb 12.2 L 12.1 L Hct 39.5 L 38.0 L MCHC 30.9 L Immature Gran % (Auto) 1.0 H Neut % (Auto) 93.9 H Lymph % (Auto) 2.3 L Lymph # (Auto) 0.87 L [place] # (Auto) 1.01 H Seg Neutrophils % 91 H Lymphocytes % 5 L Immature Gran # 0.38 H Absolute Neutrophils 35.46 H Glucose Phosphorus 4.6 H Globulin 3.8 H Albumin/Globulin Ratio 0.9 L 04/14/22 05:03 WBC RBC Hgb Hct MCHC Immature Gran % (Auto) Neut % (Auto) Lymph % (Auto) Lymph # (Auto) [place] # (Auto) Seg Neutrophils % Lymphocytes % Immature Gran # Absolute Neutrophils Glucose 111 H Phosphorus Globulin 4.3 H Albumin/Globulin Ratio 0.7 L Meds: Medications Acetaminophen (Acetaminophen 325 Mg Tablet) 650 mg PO Q6HP PRN; Protocol PRN Reason: Per Pain Protocol/Fever > 101 Last Admin: 04/16/22 21:31 Dose: 650 mg Albuterol Sulfate (Albuterol Sulfate 60 Puff Inhaler) 2 puff INH Q4HP PRN PRN Reason: Shortness Of Breath Albuterol/Ipratropium (Ipratropium/Albuterol 3 Ml Ampul.Neb) 3 ml NEB Q4HRT PRN PRN Reason: Wheezing Last Admin: 04/15/22 09:07 Dose: 3 ml Benzonatate (Benzonatate 100 Mg Capsule) 200 mg PO TIDP PRN PRN Reason: Cough Last Admin: 04/16/22 21:31 Dose: 200 mg Cetirizine HCl (Cetirizine 10 Mg Tablet) 10 mg PO QDAY NANCY Last Admin: 04/16/22 08:59 Dose: 10 mg Diphenhydramine HCl (Diphenhydramine 25 Mg Capsule) 25 mg PO BID NANCY Last Admin: 04/16/22 21:31 Dose: 25 mg Docusate Sodium (Docusate Sodium 100 Mg Capsule) 100 mg PO BID [facility] Last Admin: 04/16/22 21:31 Dose: 100 mg Enoxaparin Sodium (Enoxaparin 40 Mg/0.4 Ml Syringe) 40 mg SQ DAILY [facility] Last Admin: 04/16/22 08:59 Dose: 40 mg Guaifenesin (Guaifenesin/Dextromethorphan Oral Alexus) 10 ml PO Q4HP PRN PRN Reason: Cough Last Admin: 04/14/22 21:21 Dose: 10 ml Lactulose (Lactulose 20 Gm/30 Ml Oral.Alexus) 10 gm PO DAILYP PRN PRN Reason: Constipation Lorazepam (Lorazepam 1 Mg Tablet) 1 mg PO Q6HP PRN PRN Reason: ANXIETY/SEDATION Last Admin: 04/16/22 21:31 Dose: 1 mg Methylprednisolone Sodium Succinate (Methylprednisolone Sod Succ 40 Mg/Ml Vial) 40 mg IV Q12 [facility] Last Admin: 04/16/22 21:32 Dose: 40 mg Omeprazole (Omeprazole 20 Mg Capsule) 40 mg PO QDAY [facility] Last Admin: 04/16/22 08:59 Dose: 40 mg Ondansetron HCl (Ondansetron 4 Mg/2 Ml Vial) 4 mg IV Q4HP PRN; Protocol PRN Reason: Nausea And Vomiting Umeclidinium- Vilanterol [Anoro Ellipta] 62.5-25 Mg 1 dose INH Q24H [facility] Last Admin: 04/16/22 11:11 Dose: 1 dose Senna (Sennosides 1 Tablet) 2 tab PO HSP PRN PRN Reason: Constipation Sodium Chloride (0.9 % Sodium Chloride 10 Ml Syringe) 10 ml IV Q8 [facility] Last Admin: 04/16/22 21:32 Dose: 10 ml A/P Narrative A/P Narrative: Assessment and Plans: *Acute on chronic hypoxic/hypercapnic respiratory failure: 2/2 pulmonary fibrosis & AECOPD -pt down to 4-12 HFLNC, continue to wean down as tolerated -pt has poor reserves, desats easily *AECOPD and Pulmonary fibrosos (4-6L O2@home): -Solu-Medrol (wean), nebs, RT, Continue other bronchodilators from home regimen -Azithromycin, Ativan PRN anxiety *Anemia, normocytic normochromic: -cbc f/u and trend H/H, transfuse if active blood loss, hemoglobin <7.0, or s ymptomatic *Leukocytosis: chronic. obtain peripheral smear, no smudge cells or other sig. path *GERD: *Goals of care: -prognosis guarded *ppx: Lovenox / home ppi Code status: DNR Time Spent With Patient Time: Total time spent is greater than 50% in coordination of care (as documented) at patient's floor/unit and/or counseling patient: Total time spent with greater than 50% in coordination of care (as documented) at patient's floor/unit and/or counseling patient:: 25 - 35 minutes QUALITY VTE Deep Vein Thrombosis/Pulmonary Embolism Present on Admission: No
[2022-04-17] MEDS: 0.9 % SODIUM CHLORIDE 10 ML SYRINGE IV SCH ×3 (09:18→20:35)
[2022-04-17] MEDS: CETIRIZINE 10 MG TABLET PO SCH (09:19)
[2022-04-17] MEDS: OMEPRAZOLE 20 MG CAPSULE PO SCH (09:19)
[2022-04-17] MEDS: DOCUSATE SODIUM 100 MG CAPSULE PO SCH ×3 (09:19→20:36)
[2022-04-17] MEDS: diphenhydrAMINE 25 MG CAPSULE PO SCH ×2 (09:19→20:34)
[2022-04-17] MEDS: methylPREDNISolone SOD SUCC 40 MG/ML VIAL IV SCH (09:19)
[2022-04-17] MEDS: ENOXAPARIN 40 MG/0.4 ML SYRINGE SQ SCH (09:19)
[2022-04-17 09:47] LABS: Basophils # (Auto) 0.02 K/mcL (0.00-0.30); Basophils % (Auto) 0.1 % (0.0-2.0); Eosinophils # (Auto) 0 K/mcL (0.00-0.70); Eosinophils % (Auto) 0 % (0.0-7.0); Hematocrit 44.9 % (40.1-51.0); Hemoglobin 13.8 g/dL (13.7-17.5); Lymphocytes # (Auto) 1.48 K/mcL (1.50-4.80); Lymphocytes % (Auto) 7.5 % (15.5-49.0); Mean Cell Volume 85.9 fL (80.0-100.0); Mean Corpuscular HGB Conc 30.7 g/dL (31.0-36.0); Mean Platelet Volume 10.5 fL (8.8-12.5); Monocytes # (Auto) 0.92 K/mcL (0.10-0.90); Monocytes % (Auto) 4.7 % (1.0-12.0); Neutrophils % (Auto) 86.8 % (38.0-78.0); Platelet Count 372 K/mcL (140-440); RBC 5.23 M/mcL (4.63-6.08); Red Cell Distribution Width 13.4 % (11.5-14.5); WBC 19.6 K/mcL (4.5-11.0)
[2022-04-17] MEDS: BENZONATATE 100 MG CAPSULE PO PRN ×2 (16:48→22:14)
--- NOTE | 2022-04-17 19:57 | Discharge Summary ---
Discharge Provider Provider IMPORTANT FOLLOW-UP INFORMATION FOR PCP: Patient information: Note initiated : 04/17/22 at 7:54 pm Service Date, if different from initiated Date: [] Patient: Ned Fortune 57 y/o M admitted on 04/13/22 for Shortness of breath. Chief Complaint: [] Date of admission: 04/13/22 09:33 Discharge date: 04/18/22 Primary care physician: HAILEE Multani Consults: 04/13/22 08:28 Consult to Physician [CONS] Stat Comment: Consulting Provider: Guille Grubbs Reason For Exam: Physician to Consult COURSE Hospital Course Hospital course: Mr. Fortune is a 57 year old M history of COPD, advanced pulmonary fibrosis, presenting with 1 week history of worsening degree of shortness of breath. He is also complaining of productive cough with clear sputum and respiratory wheezings. He is complaining of right-sided rib pains when he coughs. He denies any general body weakness. He denies any fever, chills, or diaphoresis. He is coming of dyspnea on exertions with any physical activities. His baseline 1 week ago he uses 4 to 6 L of oxygen's, but over the past week, he used up to 8 to 10 L/min of oxygen's. CEPHEID screening negative for RSV, COVID, and influenza. Labs otherwise significant for leukocytosis with WBC 19.3, around his baseline. CTA of the chest negative for pulmonary embolism. Shows advanced pulmonary fibrosis, no focal pulmonary infiltrates. He was placed on high flow oxygen therapy, and admission request was called for acute on chronic respiratory failure secondary to advanced pulmonary fibrosis and COPD exacerbations. 04/14: Afebrile overnight. Patient is currently on high flow oxygen 30 L/min FiO2 60%. Patient is feeling his degree of shortness of breath has greatly improved this morning relative to yesterday. He denies any cough or respiratory wheezings. He denies any chest tightness. He denies any anxiety. He denies any subjective fever, chills, or diaphoresis. Continue to wean supplemental oxygen as tolerated by the patient's. Continue Solu-Medrol, DuoNeb, and azithromycin. Continue to offer Robitussin, Tessalon, and Ativan for cough suppressants and for anxiety, respectively. Physical therapy evaluation and treatments for placement planning. 04/15 Patient has cough but much improved and nonproductive. Shortness of breath is present but slowly improving. Still on Vapotherm high flow on FiO2. She does see Dr. Ramirez for his lungs. Leukocytosis, suspect steroid effect. Check manual differential and decreasing steroids and follow-up tomorrow 04/16 Still on Vapotherm. Making small improvements in oxygen requirements. Patient feeling little better every day. Leukocytosis slightly down from yesterday. Peripheral smear with no smudge cells or other acute pathology. Patient afebril e. 04/17 Patient continues to feel gradually better. Last night is on 4 to 12 L high flow nasal cannula, Currently on 10. Awaiting follow-up CBC. 04/18 Patient feeling well. Oxygen regimen at baseline. Patient desired to go home. Stable for discharge. Given comorbidities and end-stage COPD pulmonary fibrosis patient is extremely high risk for readmission. Would recommend an informational meeting with hospice which has been brought up to him in the past. Assessment and Plans: *Acute on chronic hypoxic/hypercapnic respiratory failure: 2/2 pulmonary fibrosis & AECOPD *AECOPD and Pulmonary fibrosos (4-6L O2@home): *Anemia, normocytic normochromic: *Leukocytosis: chronic. obtain peripheral smear, no smudge cells or other sig. path *GERD: Discharge diagnosis: Acute hypoxic hypercapnic respiratory failure COPD pulmonary fibrosis Secondary discharge diagnosis: Chronic anemia leukocytosis GERD Time Spent with Patient Time attestation: Total time spent providing and/or coordinating discharge services: Time spent: Greater than 30 minutes EXAM Constitutional Vitals: Temp Pulse Resp BP Pulse Ox O2 Del Method O2 Flow Rate 98.3 F 95 H 25 H 133/100 97 4 04/17/22 16:00 04/17/22 15:07 04/17/22 10:04 04/17/22 16:10 04/17/22 15:07 04/17/22 10:01 04/17/22 10:01 Discharge Data Data Completed and Pending Labs on day of discharge: Labs from last 24 hours 04/17/22 09:20 WBC 19.6 H RBC 5.23 Hgb 13.8 Hct 44.9 MCV 85.9 MCH 26.4 MCHC 30.7 L RDW 13.4 Plt Count 372 MPV 10.5 Immature Gran % (Auto) 0.9 H Neut % (Auto) 86.8 H Lymph % (Auto) 7.5 L [place] % (Auto) 4.7 Eos % (Auto) 0 Baso % (Auto) 0.1 Lymph # (Auto) 1.48 L [place] # (Auto) 0.92 H Eos # (Auto) 0 Baso # (Auto) 0.02 Immature Gran # 0.18 H Absolute Neutrophils 17.02 H Discharge Plan Patient/Caregiver Discharge Instructions Activity: increase activity as tolerated Prescriptions: New prednisone 10 mg tablet 40 mg PO QDAY Qty: 1 0RF Rx Instructions: Take 40mg once daily for 2 days then 20mg daily for 2 days then 10mg daily x2 days then 5mg x2 days and stop Continued ipratropium-albuterol 0.5 mg-3 mg(2.5 mg base)/3 mL solution for nebulization 3 ml inhalation Q4HRT PRN (Reason: Wheezing) Qty: 100 6RF omeprazole 40 mg capsule,delayed release(DR/EC) 40 mg PO QDAY Qty: 90 1RF (DME) Electric mobility scooter See Rx Instructions .Route .MEDSUPPLY Qty: 1 0RF Rx Instructions: Patient unable to ambulate due to severe lung disease. albuterol sulfate 90 mcg/actuation HFA aerosol inhaler 2 puff INHALATION Q4HP PRN (Reason: Shortness Of Breath) Qty: 8.5 2RF umeclidinium 62.5 mcg-vilanterol 25 mcg/actuation powdr for inhalation 62.5-25 mcg/actuation blister with device 1 inh INHALATION Q24H Qty: 60 1RF Rx Instructions: 340B plan. cetirizine 10 mg capsule 10 mg PO QDAY Rx Instructions: qd diphenhydramine HCl [Benadryl Allergy] 25 mg tablet 25 - 50 mg PO BID Rx Instructions: Pt states takes at 1800 and 2 010 dextromethorphan-guaifenesin [Diabetic Tussin DM] 10-100 mg/5 mL Liquid 10 ml PO Q4HP PRN (Reason: Cough) Qty: 500 0RF Follow Up Plan Follow up with: Liane Hoewll ARNP [Primary Care Provider] - Patient Disposition: Home, Self-Care Prognosis: Undetermined Overall status at discharge: patient is progressing back to baseline Discharge Orders: Discharge Order (Routine); Ordered 04/18/22 [facility]/Pulmonary Embolism Present on Admission: No
[2022-04-17] MEDS: predniSONE 20 MG TABLET PO SCH (20:34)
[2022-04-17] MEDS: LORazepam 1 MG TABLET PO PRN (22:14)
[2022-04-18] MEDS: 0.9 % SODIUM CHLORIDE 10 ML SYRINGE IV SCH (04:32)
[2022-04-18] MEDS: ENOXAPARIN 40 MG/0.4 ML SYRINGE SQ SCH (08:26)
[2022-04-18] MEDS: OMEPRAZOLE 20 MG CAPSULE PO SCH (08:26)
[2022-04-18] MEDS: CETIRIZINE 10 MG TABLET PO SCH (08:26)
[2022-04-18] MEDS: diphenhydrAMINE 25 MG CAPSULE PO SCH (08:26)
[2022-04-18] MEDS: predniSONE 20 MG TABLET PO SCH (08:26)
[2022-04-18] MEDS: DOCUSATE SODIUM 100 MG CAPSULE PO SCH (08:26)
== END 2022-04-18 13:45 | disposition home or self-care (01) | DRG 189 ==
LOC: ED 05:33 → ICU 09:33 → MEDSUR 04-17 17:50
PROVIDERS: ADMIT Internal Medicine; ATTEND Internal Medicine

== ENCOUNTER 2022-06-14 23:07 | Inpatient (IN) ==
[2022-06-14] MEDS ORDERED: IOPAMIDOL 100 ML BOTTLE IV ONE (23:08)
[2022-06-14] MEDS ORDERED: ALBUTEROL SULFATE 5 MG/ML NEB SOLUTION BOTTLE NEB ONE (23:20)
[2022-06-14] MEDS ORDERED: methylPREDNISolone SOD SUCC 125 MG/2 ML VIAL IV ONE (23:20)
[2022-06-14] MEDS ORDERED: IPRATROPIUM/ALBUTEROL 3 ML AMPUL.NEB NEB ONE (23:20)
[2022-06-14 23:29] LABS: POC Calcium, Ionized 1.11 (1.16-1.32); POC Creatinine 0.9 (0.6-1.2); POC Potassium 3.6 (3.3-5.1)
--- NOTE | 2022-06-14 23:35 | Emergency Department Note ---
SOB HPI General Chief Complaint: Shortness of Breath/Dyspnea Stated Complaint: SOB Time Seen by Provider: 06/14/22 23:20 Source: patient Mode of arrival: EMS Limitations: no limitations History of Present Illness HPI Narrative: Narrative: Patient arrives to the ED via EMS with complaints of shortness of breath over the last day. Patient at baseline he has end-stage COPD requiring 10 L of oxygen via nasal cannula. He states he has not been able to maintain his O2 saturations especially tonight. He states he is taking albuterol nebulized treatment with no relief. He denies fever, chills, nausea, vomiting, h emoptysis, cardiac chest pain, heart palpitations, known sick contacts. Patient denies any other alleviating or aggravating factors. Patient expressed desire to be DNR. At baseline patient does not ambulate. He only transfers from the bed to his scooter. He states that his oxygen just would not recover whenever he tried to transfer. Related Data Home Medications Medication Instructions Recorded Confirmed cetirizine 10 mg capsule 10 mg PO QDAY 08/05/19 05/06/22 diphenhydramine HCl 25 mg tablet 25 - 50 mg PO BID 12/05/21 05/06/22 (Benadryl Allergy) Previous Rx's Medication Instructions Recorded dextromethorphan-guaifenesin 10 10 ml PO Q4HP PRN Cough #500 mL 01/04/22 mg-100 mg/5 mL oral liquid (Diabetic Tussin DM) ipratropium 0.5 mg-albuterol 3 mg 3 ml inhalation Q4HRT PRN Wheezing 01/21/22 (2.5 mg base)/3 mL nebulization #100 mL soln omeprazole 40 mg capsule,delayed 40 mg PO QDAY #90 caps 03/12/22 release Electric mobility scooter #1 ea 03/19/22 albuterol sulfate 90 mcg/actuation 2 puff inhalation Q4HP PRN 04/08/22 aerosol inhaler Shortness Of Breath #8.5 grams prednisone 10 mg tablet 10 mg PO QDAY #30 tabs 05/06/22 umeclidinium 62.5 mcg-vilanterol 1 inh inhalation Q24H #60 ea 05/15/22 25 mcg/actuation powdr for inhalation (Anoro Ellipta) prednisone 10 mg tablet 10 mg PO QAM #30 tabs 06/12/22 methylprednisolone 4 mg tablets in 4 mg PO QDAY #21 tabs 06/15/22 a dose pack (Medrol (Jimbo)) Allergies Allergy/AdvReac Type Severity Reaction Status Date / Time naproxen AdvReac Intermediate purple Verified 06/14/22 23:31 spots on face Review of Systems ROS ROS Narrative: Narrative: All systems ED: reviewed and negative except as stated. [facility] Narrative Patient History Narrative: Narrative: Medical/Surgical/Family History All Active Problems (Updated 06/15/22 @ 05:06 by Javan Osman DO) Acute exacerbation of chronic obstructive pulmonary disease (Acute) Elevated brain natriuretic peptide (BNP) level (Acute) Acute and chronic respiratory failure with hypoxia (Acute) SOB (shortness of breath) (Acute) Chest pain (Acute) Anemia, normocytic normochromic (Acute) Acute and chronic respiratory failure with hypoxia (Acute) Muscular deconditioning (Chronic) SOB (shortness of breath) (Acute) Respiratory failure (Acute) Acute and chronic respiratory failure (Acute) CAP (community acquired pneumonia) (Acute) COPD exacerbation (Acute) H/O malignant neoplasm of colon (Chronic) Pulmonary fibrosis determined by high resolution computed tomography (Chronic) GERD with esophagitis (Chronic) Rico esophagus (Chronic) Bronchiectasis (Chronic) Hypoxemia (Chronic) Walking pneumonia (Chronic) SOB (shortness of breath) (Chronic) Tubulovillous adenoma (Chronic) Colon cancer (Chronic ~07/2014) Iron deficiency anemia (Chronic) Sinus congestion (Chronic) SOB (shortness of breath) on exertion (Chronic) COPD (chronic obstructive pulmonary disease) (Chronic) Eczema (Chronic) Elevated BP without diagnosis of hypertension (Chronic) Seasonal allergies (Chronic) Oxygen desaturation (Chronic) COVID-19 (Acute) Pneumonia due to COVID-19 virus (Acute) LLL pneumonia (Chronic) Medical History Rico esophagus Bronchiectasis Colon cancer (~07/2014) history of tubulovillous adenoma and colon carcinoma , removed 07/2014 COPD (chronic obstructive pulmonary disease) Eczema Elevated BP without diagnosis of hypertension GERD with esophagitis H/O malignant neoplasm of colon H/O: rheumatic fever Hypoxemia Iron deficiency anemia Muscular deconditioning Oxygen desaturation 11/26/2020: 75-88% on oxygen today in clinic Pulmonary fibrosis determined by high resolution computed tomography Seasonal allergies Tubulovillous adenoma Surgical History History of colonoscopy (08/11/16) abnormal History of repair of hiatal hernia (~04/2018) bleeding ulcers History of tonsillectomy and adenoidectomy (~1969) S/P Clara fundoplication (without gastrostomy tube) procedure Family History Father PNA (pneumonia) Prostate cancer Mother Kidney failure Grandfather Cancer Daughter Hemiplegic migraine Ovarian cyst Social History Smoking Status: Former smoker Alcohol Intake Frequency: holiday/special occasion only Substance Use: does not use Exam Narrative Narrative: Narrative: General Limitations: no limitations General appearance: Present in distress ENT ENT: Present normal oropharynx and mucous membranes moist Chest Chest: Present normal inspection; Absent tenderness Respiratory Respiratory: Present respiratory distress, wheezes, accessory muscle use and decreased breath sounds Cardiovascular Cardiovascular: Present normal rhythm and tachycardia Adbominal Abdominal: Present soft; Absent tenderness Extremities Extremities: Present normal capillary refill Neurological Neurological: Present alert and oriented X3 Psychiatric Psychiatric: Present normal affect and normal mood Skin Skin: Present warm (WNL) and intact Course Course Course Narrative: Patient was evaluated for complaints of shortness of breath. Patient was requiring 20 L upon arrival via nasal cannula and mask combination,. he was tachycardic so an EKG was obtained that showed sinus tachycardia. Labs were obtained are unremarkable with exception of elevated BNP. Patient was given IV Lasix. He was also given a DuoNeb followed by albuterol breathing treatment. He was given IV methylprednisolone 125 mg. Patient was able to be weaned back down to his 10 L via nasal cannula. Patient maintain adequate oxygen saturation. When he transferred to the bedside commode he did desat down to 88% but then he did recover without any additional oxygen requirements. Later during the stay and when he transferred up out of bed he desatted on 6 9% and he was not able to recover on his own requiring extra oxygen of 12 L to get back to within normal limit. The patient states at baseline he is able to transfer without such big desaturations at baseline. It is my recommendation that the patient be admitted for COPD exacerbation he will need a couple days of IV steroids and breathing treatments to hopefully get back to his baseline. Case discussed with hospitalist who has agreed to admit the patient. Reevaluation(s) Reevaluation #1: Patient remains hemodynamically stable. No new complaints at this time. Time: 00:35 Consultations Consultation #1: Case discussed with hospitalist, Dr. Spann, who was agreed to admit the patient. Time: 05:22 Vital Signs Vital signs: Vital Signs Temperature 98.8 F 06/14/22 23:11 Pulse Rate 120 H 06/14/22 23:11 Respiratory Rate 30 H 06/14/22 23:11 Blood Pressure 129/105 06/14/22 23:11 Pulse Oximetry (%) 84 L 06/14/22 23:11 Oxygen Delivery Method Nasal Cannula, Non-Rebreather Mask 06/14/22 23:11 Oxygen Flow Rate (L/min) 20 06/14/22 23:11 Temperature 98.8 F 06/14/22 23:11 Pulse Rate 107 H 06/15/22 04:46 Respiratory Rate 26 H 06/15/22 05:01 Blood Pressure 112/89 06/15/22 05:01 Pulse Oximetry (%) 98 06/15/22 04:46 Oxygen Delivery Method Nasal Cannula 06/15/22 03:57 Oxygen Flow Rate (L/min) 10 06/15/22 03:57 MDM MDM Narrative Medical decision making narrative: Narrative: Differential Diagnosis Differential Diagnosis: Pneumonia, COPD exacerbation, PE Medical Records Medical records reviewed: Yes I reviewed the patient's medical records. Lab Data Lab results reviewed: Yes I reviewed the patient's lab results. 06/14/22 23:58 Labs: Lab Results 06/14/22 06/14/22 06/14/22 Range/Units 23:26 23:26 23:57 WBC (4.5-11.0) K/mcL RBC (4.63-6.08) M/mcL Hgb (13.7-17.5) g/dL Hct (40.1-51.0) % POC Hct 42.0 (41-55) MCV (80.0-100.0) fL MCH (26.0-34.0) pg MCHC (31.0-36.0) g/dL RDW (11.5-14.5) % Plt Count (140-440) K/mcL MPV (8.8-12.5) fL Immature Gran % (Auto) (0.0-0.5) % Neut % (Auto) (38.0-78.0) % Lymph % (Auto) (15.5-49.0) % [place] % (Auto) (1.0-12.0) % Eos % (Auto) (0.0-7.0) % Baso % (Auto) (0.0-2.0) % Lymph # (Auto) (1.50-4.80) K/mcL [place] # (Auto) (0.10-0.90) K/mcL Eos # (Auto) (0.00-0.70) K/mcL Baso # (Auto) (0.00-0.30) K/mcL Immature Gran # (0.00-0.05) K/mcl Absolute Neutrophils (1.80-8.00) K/mcL POC VBG pH 7.42 (7.32-7.42) POC VBG pCO2 at Temp 51.0 (41-51) POC VBG pO2 34 (25-40) POC VBG HCO3 32.9 H (24-28) POC VBG Total CO2 34.0 H (25-29) POC Venous O2 Sat 65.0 (40-70) POC VBG Base Excess 8.0 H* (-2-2) VBG Lactic Acid 1.9 (0.5-2) POC Sodium 141 (133-145) POC Potassium 3.6 (3.3-5.1) POC Chloride 99 (96-108) POC Total CO2 31.0 H (22-30) POC BUN 20 (6-20) POC Creatinine 0.9 (0.6-1.2) POC Glucose 121 H (70-105) POC WB Ioniz Calcium 1.11 L (1.16-1.32) NT-Pro-B Natriuret Pep 1549.0 H (<125.0) pg/mL Procalcitonin (<0.10) ng/mL 06/14/22 06/15/22 Range/Units 23:58 00:46 WBC 19.4 H (4.5-11.0) K/mcL RBC 4.76 (4.63-6.08) M/mcL Hgb 12.9 L (13.7-17.5) g/dL Hct 42.0 (40.1-51.0) % POC Hct (41-55) MCV 88.2 (80.0-100.0) fL MCH 27.1 (26.0-34.0) pg MCHC 30.7 L (31.0-36.0) g/dL RDW 13.1 (11.5-14.5) % Plt Count 360 (140-440) K/mcL MPV 11.6 (8.8-12.5) fL Immature Gran % (Auto) 0.4 (0.0-0.5) % Neut % (Auto) 80.0 H (38.0-78.0) % Lymph % (Auto) 12.3 L (15.5-49.0) % [place] % (Auto) 6.1 (1.0-12.0) % Eos % (Auto) 0.8 (0.0-7.0) % Baso % (Auto) 0.4 (0.0-2.0) % Lymph # (Auto) 2.39 (1.50-4.80) K/mcL [place] # (Auto) 1.18 H (0.10-0.90) K/mcL Eos # (Auto) 0.15 (0.00-0.70) K/mcL Baso # (Auto) 0.07 (0.00-0.30) K/mcL Immature Gran # 0.07 H (0.00-0.05) K/mcl Absolute Neutrophils 15.52 H (1.80-8.00) K/mcL POC VBG pH (7.32-7.42) POC VBG pCO2 at Temp (41-51) POC VBG pO2 (25-40) POC VBG HCO3 (24-28) POC VBG Total CO2 (25-29) POC Venous O2 Sat (40-70) POC VBG Base Excess (-2-2) VBG Lactic Acid (0.5-2) POC Sodium (133-145) POC Potassium (3.3-5.1) POC Chloride (96-108) POC Total CO2 (22-30) POC BUN (6-20) POC Creatinine (0.6-1.2) POC Glucose (70-105) POC WB Ioniz Calcium (1.16-1.32) NT-Pro-B Natriuret Pep (<125.0) pg/mL Procalcitonin 0.07 (<0.10) ng/mL ED POC Tests ED POC Tests: LANE - Influenza A Negative LANE - Influenza B Negative LANE - SARS Antigen Negative Radiology Data Radiology results reviewed: Yes I reviewed the patient's radiology results. Radiology results narrative: Chest x-ray obtained with image reviewed myself, no signs of pneumonia, official read pending EKG Data EKG #1: EKG attestation: Yes I reviewed and interpreted this EKG. EKG shows normal: sinus rhythm Rate: tachycardia Rhythm: NSR [place]/QRS: left axis deviation Heart block present: None ST segment elevation in: None ST segment depression in: None QTc: normal QRS morphology: Present normal Interpretation: no acute changes and nonspecific ST-T wave changes Core Measures AMI Core Measures Followed: Yes Discharge Plan Patient/Caregiver Discharge Instructions Pt seen by E[employer] MAINT ENG/PA only: No Clinical Impression: Acute and chronic respiratory failure with hypoxia, Acute exacerbation of ch ronic obstructive pulmonary disease, Elevated brain natriuretic peptide (BNP) level Activity: resume usual activities as tolerated Instructions: COPD (Chronic Obstructive Pulmonary Disease) (DC) Activity Restrictions/Additional Instructions: Follow-up with PCP within 3 to 4 days Use Medrol Dosepak as prescribed Continue your home nebulizers Seek medical attention symptoms worsen Patient Disposition: Xfer As Outpt/Obs ([facility]) Condition: Good Follow up with: Liane Howell ARNP [Primary Care Provider] - 06/18/22 (COPD exacerbation) Prescriptions: New methylprednisolone [Medrol (Jimbo)] 4 mg tablets,dose pack 4 mg PO QDAY Qty: 21 0RF Rx Instructions: Take 6 tabs on day 1 then decrease by 1 tablet each day until complete No Action ipratropium-albuterol 0.5 mg-3 mg(2.5 mg base)/3 mL solution for nebulization 3 ml inhalation Q4HRT PRN (Reason: Wheezing) Qty: 100 6RF omeprazole 40 mg capsule,delayed release(DR/EC) 40 mg PO QDAY Qty: 90 1RF (DME) Electric mobility scooter See Rx Instructions .Route .MEDSUPPLY Qty: 1 0RF Rx Instructions: Patient unable to ambulate due to severe lung disease. albuterol sulfate 90 mcg/actuation HFA aerosol inhaler 2 puff INHALATION Q4HP PRN (Reason: Shortness Of Breath) Qty: 8.5 2RF umeclidinium 62.5 mcg-vilanterol 25 mcg/actuation powdr for inhalation 62.5-25 mcg/actuation blister with device 1 inh INHALATION Q24H Qty: 60 1RF Rx Instructions: 340B plan. prednisone 10 mg tablet 10 mg PO QAM Qty: 30 4RF cetirizine 10 mg capsule 10 mg PO QDAY Rx Instructions: qd prednisone 10 mg tablet 10 mg PO QDAY Qty: 30 0RF Rx Instructions: Take 4 tabs (40mg) for 3 days, then 3 tabs (30mg) for 3 days, then 2 tabs (20mg) for 3 days, then 1 tab (10mg) for 3 days diphenhydramine HCl [Benadryl Allergy] 25 mg tablet 25 - 50 mg PO BID Rx Instructions: Pt states takes at 1800 and 2 010 dextromethorphan-guaifenesin [Diabetic Tussin DM] 10-100 mg/5 mL Liquid 10 ml PO Q4HP PRN (Reason: Cough) Qty: 500 0RF
[2022-06-14] MEDS ORDERED: ALBUTEROL SULFATE 2.5 MG/3 ML NEBULIZER NEB ONE (23:45)
[2022-06-14] MEDS ORDERED: ALBUTEROL SULFATE 2.5 MG/3 ML NEBULIZER ONE (23:47)
[2022-06-15 00:33] LABS: Basophils # (Auto) 0.07 K/mcL (0.00-0.30); Basophils % (Auto) 0.4 % (0.0-2.0); Eosinophils # (Auto) 0.15 K/mcL (0.00-0.70); Eosinophils % (Auto) 0.8 % (0.0-7.0); Hemoglobin 12.9 g/dL (13.7-17.5); Lymphocytes # (Auto) 2.39 K/mcL (1.50-4.80); Lymphocytes % (Auto) 12.3 % (15.5-49.0); Mean Cell Volume 88.2 fL (80.0-100.0); Mean Corpuscular HGB Conc 30.7 g/dL (31.0-36.0); Mean Platelet Volume 11.6 fL (8.8-12.5); Monocytes # (Auto) 1.18 K/mcL (0.10-0.90); Monocytes % (Auto) 6.1 % (1.0-12.0); Platelet Count 360 K/mcL (140-440); RBC 4.76 M/mcL (4.63-6.08); Red Cell Distribution Width 13.1 % (11.5-14.5); WBC 19.4 K/mcL (4.5-11.0)
[2022-06-15] MEDS ORDERED: FUROSEMIDE 40 MG/4 ML VIAL IV ONE (00:49)
--- NOTE | 2022-06-15 05:35 | Internal Med History&Physical ---
HPI History of Present Illness Patient information: Note initiated : 06/15/22 at 5:31 am Service Date, if different from initiated Date: [] Patient: Ned Fortune 57 y/o M admitted on for Shortness of breath. Chief Complaint: [] History of present illness: Mr. Fortune is a 57 year old male with a history of severe pulmonary fibrosis on prednisone 10 mg daily, COPD, bronchiectasis, chronic hypoxia requiring 8 to 10 L/min oxygen supplementation, GERD status post Clara fundoplication, Rico's esophagus Who presented to the emergency department with 2 to 3 days of worsening dyspnea and increased oxygen requirement at home. The patient says he has been having difficulty maintaining his oxygen saturation in spite of supplementing oxygen from a oxygen tank at home in addition to using his oxygen concentrator. In the ED, the patient initially required a significantly higher amount of oxygen supplementation than his baseline however he was able to wean down to about 10 L/min however desaturates quickly with minimal exertion. The patient denies recent fevers and chills and is afebrile in the emergency department. The patient does say that he had a mostly nonproductive cough for a couple days. CBC shows a white blood cell count of 19,400, the patient does have leukocytosis since December 2021 per chart review. Venous blood gas in the ED did not showed a pH in upper normal range with the pH of 7.42, venous PCO2 was upper range of normal at 51. Lactic acid was upper range of normal at 1.9. Basic metabolic panel was fairly unremarkable. Leslie SARS-CoV-2, influenza in the ED was negative. Chest x-ray shows findings consistent with severe pulmonary fibrosis and I did not find any new infiltrates to suggest pneumonia. Radiology report pending on the chest x-ray at the time of admission. We discussed CODE STATUS prior to admission, the patient wishes his code to be DNR/DNI. Review of systems Constitutional: no fever, fatigue, or weight loss Eyes: no vision changes or pain Cardiovascular: no chest pain, no palpitations Respiratory: Positive for dyspnea and nonproductive cough Gastrointestinal: no abdominal pain, no nausea, vomiting, or diarrhea Genitourinary: no dysuria or difficulty voiding Musculoskeletal: no arthralgia or myalgia Integumentary: no skin lesion or wound Neurological: no focal weakness or numbness Psychiatric: no anxiety or depression Physical exam Head: Atraumatic, normal inspection. Eyes: normal appearance, no scleral icterus. Neck: full ROM Respiratory: Supplemental oxygen, accessory muscle use, diffuse bilateral crackles, no wheezing appreciated. Cardiovascular: Regular tachycardia, loud S1. GI/Abdominal: soft, nontender, no guarding. Extremities: full range of motion, nontender. Neurological: CN II-XII intact, intact motor, intact sensation. Psychiatric: normal mood. Skin: warm, normal color PFSH PFSH All Active Problems (Updated 06/15/22 @ 05:06 by Javan Osman DO) Acute exacerbation of chronic obstructive pulmonary disease (Acute) Elevated brain natriuretic peptide (BNP) level (Acute) Acute and chronic respiratory failure with hypoxia (Acute) SOB (shortness of breath) (Acute) Chest pain (Acute) Anemia, normocytic normochromic (Acute) Acute and chronic respiratory failure with hypoxia (Acute) Muscular deconditioning (Chronic) SOB (shortness of breath) (Acute) Respiratory failure (Acute) Acute and chronic respiratory failure (Acute) CAP (community acquired pneumonia) (Acute) COPD exacerbation (Acute) H/O malignant neoplasm of colon (Chronic) Pulmonary fibrosis determined by high resolution computed tomography (Chronic) GERD with esophagitis (Chronic) Rico esophagus (Chronic) Bronchiectasis (Chronic) Hypoxemia (Chronic) Walking pneumonia (Chronic) SOB (shortness of breath) (Chronic) Tubulovillous adenoma (Chronic) Colon cancer (Chronic ~07/2014) Iron deficiency anemia (Chronic) Sinus congestion (Chronic) SOB (shortness of breath) on exertion (Chronic) COPD (chronic obstructive pulmonary disease) (Chronic) Eczema (Chronic) Elevated BP without diagnosis of hypertension (Chronic) Seasonal allergies (Chronic) Oxygen desaturation (Chronic) COVID-19 (Acute) Pneumonia due to COVID-19 virus (Acute) LLL pneumonia (Chronic) Medical History Rico esophagus Bronchiectasis Colon cancer (~07/2014) history of tubulovillous adenoma and colon carcinoma , removed 07/2014 COPD (chronic obstructive pulmonary disease) Eczema Elevated BP without diagnosis of hypertension GERD with esophagitis H/O malignant neoplasm of colon H/O: rheumatic fever Hypoxemia Iron deficiency anemia Muscular deconditioning Oxygen desaturation 11/26/2020: 75-88% on oxygen today in clinic Pulmonary fibrosis determined by high resolution computed tomography Seasonal allergies Tubulovillous adenoma Surgical History History of colonoscopy (08/11/16) abnormal History of repair of hiatal hernia (~04/2018) bleeding ulcers History of tonsillectomy and adenoidectomy (~1969) S/P Clara fundoplication (without gastrostomy tube) procedure Family History Father PNA (pneumonia) Prostate cancer Mother Kidney failure Grandfather Cancer Daughter Hemiplegic migraine Ovarian cyst Social History household members: spouse and family housing: house marital status: occupational status: retired 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 Has 2 children physical activity: none smoking status: Former smoker quit date: 05/04/98 pack-years: 20 alcohol intake frequency: holiday/special occasion only substance use type: does not use MEDS/ALLERGIES Home Medications and Allergies Home Medications Medication Instructions Recorded Confirmed Type cetirizine 10 mg capsule 10 mg PO QDAY 08/05/19 06/15/22 History diphenhydramine HCl 25 mg tablet 25 - 50 mg PO BID 12/05/21 06/15/22 History (Benadryl Allergy) dextromethorphan-guaifenesin 10 10 ml PO Q4HP PRN Cough #500 mL 01/04/22 06/15/22 Rx mg-100 mg/5 mL oral liquid (Diabetic Tussin DM) ipratropium 0.5 mg-albuterol 3 mg 3 ml inhalation Q4HRT PRN Wheezing 01/21/22 06/15/22 Rx (2.5 mg base)/3 mL nebulization #100 mL soln omeprazole 40 mg capsule,delayed 40 mg PO QDAY #90 caps 03/12/22 06/15/22 Rx release Electric mobility scooter #1 ea 03/19/22 05/06/22 Rx albuterol sulfate 90 mcg/actuation 2 puff inhalation Q4HP PRN 04/08/22 06/15/22 Rx aerosol inhaler Shortness Of Breath #8.5 grams umeclidinium 62.5 mcg-vilanterol 1 inh inhalation Q24H #60 ea 05/15/22 06/15/22 Rx 25 mcg/actuation powdr for inhalation (Anoro Ellipta) prednisone 10 mg tablet 10 mg PO QAM #30 tabs 06/12/22 06/15/22 Rx Allergies Allergy/AdvReac Type Severity Reaction Status Date / Time naproxen AdvReac Intermediate purple Verified 06/14/22 23:31 spots on face EXAM Constitutional Vitals: Temp Pulse Resp BP Pulse Ox O2 Del Method O2 Flow Rate 98.8 F 107 H 26 H 112/89 98 Nasal Cannula 10 06/14/22 23:11 06/15/22 04:46 06/15/22 05:01 06/15/22 05:01 06/15/22 04:46 06/15/22 03:57 06/15/22 03:57 DATA Data Completed and Pending Labs: Labs from last 24 hours 06/15/22 06/14/22 06/14/22 00:46 23:58 23:57 WBC 19.4 H RBC 4.76 Hgb 12.9 L Hct 42.0 POC Hct MCV 88.2 MCH 27.1 MCHC 30.7 L RDW 13.1 Plt Count 360 MPV 11.6 Immature Gran % (Auto) 0.4 Neut % (Auto) 80.0 H Lymph % (Auto) 12.3 L [place] % (Auto) 6.1 Eos % (Auto) 0.8 Baso % (Auto) 0.4 Lymph # (Auto) 2.39 [place] # (Auto) 1.18 H Eos # (Auto) 0.15 Baso # (Auto) 0.07 Immature Gran # 0.07 H Absolute Neutrophils 15.52 H POC VBG pH POC VBG pCO2 at Temp POC VBG pO2 POC VBG HCO3 POC VBG Total CO2 POC Venous O2 Sat POC VBG Base Excess VBG Lactic Acid POC Sodium POC Potassium POC Chloride POC Total CO2 POC BUN POC Creatinine POC Glucose POC WB Ioniz Calcium NT-Pro-B Natriuret Pep 1549.0 H Procalcitonin 0.07 02/11/23 02/11/23 23:26 23:26 WBC RBC Hgb Hct POC Hct 42.0 MCV MCH MCHC RDW Plt Count MPV Immature Gran % (Auto) Neut % (Auto) Lymph % (Auto) [place] % (Auto) Eos % (Auto) Baso % (Auto) Lymph # (Auto) [place] # (Auto) Eos # (Auto) Baso # (Auto) Immature Gran # Absolute Neutrophils POC VBG pH 7.42 POC VBG pCO2 at Temp 51.0 POC VBG pO2 34 POC VBG HCO3 32.9 H POC VBG Total CO2 34.0 H POC Venous O2 Sat 65.0 POC VBG Base Excess 8.0 H* VBG Lactic Acid 1.9 POC Sodium 141 POC Potassium 3.6 POC Chloride 99 POC Total CO2 31.0 H POC BUN 20 POC Creatinine 0.9 POC Glucose 121 H POC WB Ioniz Calcium 1.11 L NT-Pro-B Natriuret Pep Procalcitonin A/P Narrative A/P Narrative: Assessment:57-year-old male with a history of severe pulmonary fibrosis on prednisone 10 mg daily, COPD, bronchiectasis, chronic hypoxia requiring 8 to 10 L/min oxygen supplementation, GERD status post Clara fundoplication, Rico's esophagus admitted for acute on chronic hypoxic respiratory failure. The patient has had a recent mostly nonproductive cough, he has chronic leukocytosis, denies fevers or chills. #Acute on chronic hypoxic respiratory failure of uncertain etiology #Possible pulmonary fibrosis exacerbation #Severe chronic pulmonary fibrosis #Chronic hypoxia requiring 8-10 L/min O2 #Chronic leukocytosis #COPD, does not appear to be in exacerbation #Bronchiectasis #GERD #Rico's esophagus #History of colon cancer #Malnourishment #Guarded prognosis given severe pulmonary fibrosis Plan -Solumedrol 62.5 mg IV TID for now. -Oxygen supplementation with nasal cannula for now per patient's request, transition to Vapotherm if the patient decompensates. -Scheduled Duonebs and prn Albuterol nebs. -Consider antibiotic coverage. -CTA chest evaluate for PE and other cause for respiratory decompensation. -SARS-CoV-2, influenza, RSV PCR. -Follow up pending radiology report for chest xray. -Home medication reconciliation. -PT and OT. -Regular diet. -DVT prophylaxis: Lovenox -Code status: DNR/DNI Time Spent With Patient Time: Total time spent is greater than 50% in coordination of care (as documented) at patient's floor/unit and/or counseling patient:
--- NOTE | 2022-06-15 07:11 | XRay Report ---
INDICATION: sob TECHNIQUE: AP portable semiupright chest x-ray COMPARISON: Previous chest x-ray dated 12/30/2021. Previous chest CT scans dated 04/13/2022 and 12/30/2021 FINDINGS: Lungs:Severe abnormality. History of pulmonary fibrosis, probably IPF. Chest x-ray is essentially unchanged since 12/30/2021. No new parenchymal consolidation. No parenchymal mass Heart, vascular:No change in heart size. No evidence for congestive heart failure Mediastinum, emily:No mediastinal widening. No hilar mass Pleura:No pleural fluid. No pleural-based mass or calcification Skeletal:Negative. IMPRESSION: 1. Severe pulmonary fibrosis 2. No definite interval change since 12/30/2021 Interpreted and Authenticated by: Pardeep White 06/15/22
[2022-06-15] MEDS ORDERED: ACETAMINOPHEN 325 MG TABLET PO PRN (07:38)
[2022-06-15] MEDS ORDERED: SENNOSIDES 1 TABLET PO PRN (07:38)
[2022-06-15] MEDS ORDERED: ONDANSETRON 4 MG/2 ML VIAL IV PRN (07:38)
[2022-06-15] MEDS ORDERED: ALBUTEROL SULFATE 2.5 MG/3 ML NEBULIZER NEB PRN (07:38)
[2022-06-15] MEDS ORDERED: LACTULOSE 20 GM/30 ML ORAL.SOL PO PRN (07:38)
--- NOTE | 2022-06-15 07:45 | Cat Scan Report ---
INDICATION: Hypoxia and RV strain, evaluate for PE. COMPARISON: Previous CT scans dated 04/13/2022, 12/30/2021 TECHNIQUE: Axial images obtained through the chest. 58ml Isovue 370 injected intravenously, and scanning was performed during pulmonary arterial phase. Sagittally and coronally reformatted images were obtained. MIP reformatted images. FINDINGS: Lungs:Findings consistent with severe pulmonary fibrosis and probable idiopathic pulmonary fibrosis. There is extensive honeycombing. There is bronchiectasis and reticular abnormality. There has been mild interval progression since 12/30/2021. No acute parenchymal consolidation or mass. Mediastinum, vascular:Main pulmonary artery, right pulmonary artery, left pulmonary artery are negative. No intraluminal filling defects. No lobar, segmental, or subsegmental emboli. Main pulmonary artery measures approximately 32 mm consistent with pulmonary arterial hypertension. Thoracic aorta is negative. No aneurysmal dilatation No pathologic mediastinal or hilar adenopathy. Trachea is dilated, unchanged Heart:No cardiomegaly. No pericardial effusion. Pleura:No significant pleural effusion. No pleural mass or calcification Axilla, supraclavicular regions, chest wall:No pathologic axillary or supraclavicular adenopathy. Musculoskeletal:Negative thoracic spine. No compression fracture. No lytic lesion. No rib or sternal lesions Upper Abdomen:Negative IMPRESSION: 1. Severe pulmonary fibrosis consistent with IPF. Mild interval progression since 12/30/2021 2. Negative pulmonary angiogram. No pulmonary embolism. 3. Dilated main pulmonary artery consistent with pulmonary arterial hypertension 4. Tracheomegaly, unchanged 5. No acute parenchymal consolidation or evidence for acute pneumonia The exam was performed using radiation dose optimization techniques including, but not limited to, automated exposure control, adjustment of the mA and/or kV according to patient size and use of iterative reconstruction technique. Interpreted and Authenticated by: Pardeep White 06/15/22
[2022-06-15 08:04] LABS: ALT/SGPT 28 U/L (<40); AST/SGOT 23 U/L (<40); Albumin 3.7 gm/dL (3.2-5.2); Alkaline Phosphatase 125 U/L (39-117); Bilirubin,Direct < 0.2 mg/dL (0-0.3); Bilirubin,Total 0.2 mg/dL (0.1-1.0); Blood Urea Nitrogen 18 mg/dL (6-20); Calcium 9.1 mg/dL (8.6-10.4); Carbon Dioxide 26 mmol/L (22-30); Chloride 98 mmol/L (96-108); Globulin 3.8 gm/dL (2.2-3.7); Glomerular Filtration Rate 97; Glucose 112 mg/dL (70-105); Lactate Dehydrogenase 184 U/L (135-225); Phosphorous 3.8 mg/dL (2.5-4.5); Triglycerides 154 mg/dL (<150); Uric Acid 4.7 mg/dL (2.5-8.0)
[2022-06-15] MEDS: 0.9 % SODIUM CHLORIDE 10 ML SYRINGE IV SCH ×3 (08:13→22:51)
[2022-06-15] MEDS: methylPREDNISolone SOD SUCC 125 MG/2 ML VIAL IV SCH ×2 (08:13→16:06)
[2022-06-15] MEDS: IPRATROPIUM/ALBUTEROL 3 ML AMPUL.NEB NEB SCH ×5 (08:37→23:22)
[2022-06-15] MEDS: DOCUSATE SODIUM 100 MG CAPSULE PO SCH ×2 (08:42→20:37)
[2022-06-15] MEDS: ENOXAPARIN 40 MG/0.4 ML SYRINGE SQ SCH (08:42)
--- NOTE | 2022-06-15 13:00 | Internal Med Progress Note ---
SUBJECTIVE Subjective Patient information: Note initiated : 06/15/22 at 12:54 pm Service Date, if different from initiated Date: [] Patient: Ned Fortune 57 y/o M admitted on 06/15/22 for Shortness of breath. Chief Complaint: [] Interval history: History of present illness: Mr. Fortune is a 57 year old male with a history of severe pulmonary fibrosis on prednisone 10 mg daily, COPD, bronchiectasis, chronic hypoxia requiring 8 to 10 L/min oxygen supplementation, GERD status post Clara fundoplication, Rico's esophagus Who presented to the emergency department with 2 to 3 days of worsening dyspnea and increased oxygen requirement at home. The patient says he has been having difficulty maintaining his oxygen saturation in spite of supplementing oxygen from a oxygen tank at home in addition to using his oxygen concentrator. In the ED, the patient initially required a significantly higher amount of oxygen supplementation than his baseline however he was able to wean down to about 10 L/min however desaturates quickly with minimal exertion. The patient denies recent fevers and chills and is afebrile in the emergency department. The patient does say that he had a mostly nonproductive cough for a couple days. CBC shows a white blood cell count of 19,400, the patient does have leukocytosis since December 2021 per chart review. Venous blood gas in the ED did not showed a pH in upper normal range with the pH of 7.42, venous PCO2 wa s upper range of normal at 51. Lactic acid was upper range of normal at 1.9. Basic metabolic panel was fairly unremarkable. Leslie SARS-CoV-2, influenza in the ED was negative. Chest x-ray shows findings consistent with severe pulmonary fibrosis and I did not find any new infiltrates to suggest pneumonia. Radiology report pending on the chest x-ray at the time of admission. We discussed CODE STATUS prior to admission, the patient wishes his code to be DNR/DNI. 06/16 Review of Systems: denies headache/fever/chills/nausea/vomiting/chest or abdominal pain/cough/dyspnea/diarrhea. Otherwise see above. PHYSICAL EXAM: General: Alert, Awake, No acute Distress Eyes/N/T: EOMI, Head/Neck: neck supple, CV: Tachycardic but regular, No murmurs, Pulm: Rales/rhonchi b/l, no wheezing Abd: soft, nontender, +BS x4 Ext: no clubbing/cyanosis/edema Neuro: Alert, no focal deficits, moves all extremities, Skin: warm/dry Constitutional Vitals: Vital Signs Temp Pulse Resp BP Pulse Ox O2 Del Method O2 Flow Rate 97.6 F 107 H 29 H 135/102 92 High Flow Nasal Cannula 11 06/15/22 12:00 06/15/22 11:51 06/15/22 12:00 06/15/22 12:00 06/15/22 12:00 06/15/22 12:00 06/15/22 12:00 Period Temp Pulse Resp BP Sys/Ashraf Pulse Ox O2 Del Method O2 Flow Rate Last 24 Hr 97.2 F-98.8 F 95-124 21-44 105-171/82-121 82-100 High Flow Nasal Cannula-Nasal Cannula, Non-Rebreather Mask 10-20 Intake and Output 06/15/22 06/15/22 06/15/22 03:59 11:59 19:59 Intake Total 300 Output Total 810 450 Balance -810 -150 Weight 54.431 kg 47.446 kg Patient Weight 06/16/22 03:59 Weight 47.446 kg Intake & Output: Intake & Output 06/15/22 06/15/22 06/15/22 03:59 11:59 19:59 Intake Total 300 Output Total 810 450 Balance -810 -150 Weight 54.431 kg 47.446 kg Intake: Oral 300 Output: Urine Catheter Amount 400 Void Amount 410 450 Other: Meal Breakfast Percent of Meal Consumed 100% Feeding Ability Independent Urine Appearance Clear Clear Urine Color Yellow Urine Odor Normal OBJ DATA Labs 06/14/22 23:58 06/15/22 00:46 Labs: Abnormal Lab Results 06/15/22 06/14/22 06/14/22 00:46 23:58 23:57 WBC 19.4 H Hgb 12.9 L MCHC 30.7 L Neut % (Auto) 80.0 H Lymph % (Auto) 12.3 L [place] # (Auto) 1.18 H Immature Gran # 0.07 H Absolute Neutrophils 15.52 H POC VBG HCO3 POC VBG Total CO2 POC VBG Base Excess POC Total CO2 Glucose 112 H POC Glucose POC WB Ioniz Calcium Alkaline Phosphatase 125 H NT-Pro-B Natriuret Pep 1549.0 H Globulin 3.8 H Triglycerides 154 H 06/14/22 06/14/22 23:26 23:26 WBC Hgb MCHC Neut % (Auto) Lymph % (Auto) [place] # (Auto) Immature Gran # Absolute Neutrophils POC VBG HCO3 32.9 H POC VBG Total CO2 34.0 H POC VBG Base Excess 8.0 H* POC Total CO2 31.0 H Glucose POC Glucose 121 H POC WB Ioniz Calcium 1.11 L Alkaline Phosphatase NT-Pro-B Natriuret Pep Globulin Triglycerides Meds: Medications Acetaminophen (Acetaminophen 325 Mg Tablet) 650 mg PO Q6HP PRN; Protocol PRN Reason: Per Pain Protocol/Fever > 101 Albuterol Sulfate (Albuterol Sulfate 2.5 Mg/3 Ml Nebulizer) 2.5 mg NEB Q4HRT PRN PRN Reason: Wheezing Albuterol/Ipratropium (Ipratropium/Albuterol 3 Ml Ampul.Neb) 3 ml NEB Q4HRT [facility] Last Admin: 06/15/22 11:51 Dose: 3 ml Docusate Sodium (Docusate Sodium 100 Mg Capsule) 100 mg PO BID [facility] Last Admin: 06/15/22 08:42 Dose: 100 mg Enoxaparin Sodium (Enoxaparin 40 Mg/0.4 Ml Syringe) 40 mg SQ DAILY [facility] Last Admin: 06/15/22 08:42 Dose: 40 mg Lactulose (Lactulose 20 Gm/30 Ml Oral.Alexus) 10 gm PO DAILYP PRN PRN Reason: Constipation Methylprednisolone Sodium Succinate (Methylprednisolone Sod Succ 125 Mg/2 Ml Vial) 62.5 mg IV Q8H [facility] Last Admin: 06/15/22 08:13 Dose: 62.5 mg Ondansetron HCl (Ondansetron 4 Mg/2 Ml Vial) 4 mg IV Q4HP PRN; Protocol PRN Reason: Nausea And Vomiting Senna (Sennosides 1 Tablet) 2 tab PO HSP PRN PRN Reason: Constipation Sodium Chloride (0.9 % Sodium Chloride 10 Ml Syringe) 10 ml IV Q8 [facility] Last Admin: 06/15/22 08:13 Dose: 10 ml A/P Narrative A/P Narrative: A: #Acute on chronic hypoxic respiratory failure: likely 2/2 pulmonary fibrosis -Flu/RSV/Covid neg #Probable pulmonary fibrosis exacerbation: #COPD / Severe chronic pulmonary fibrosis / Bronchiectasis (8-10L O2@home): #Chronic leukocytosis #GERD / Rico's esophagus: #h/o colon cancer #Malnourishment #Anemia, chronic: #Guarded prognosis given severe pulmonary fibrosis and multiple hospitalizations Plan -Solumedrol 62.5 mg IV TID for now -Oxygen supplementation with nasal cannula for now per patient's request, transition to Vapotherm if the patient decompensates. -Scheduled Duonebs and prn Albuterol nebs. -Consider antibiotic coverage -CTA chest evaluate for PE and other cause for respiratory decompensation. > no PE -Follow up pending radiology report for chest xray. -PT and OT. -ppx: Lovenox / ppi Code status: DNR/DNI Time Spent With Patient Time: Total time spent is greater than 50% in coordination of care (as documented) at patient's floor/unit and/or counseling patient: QUALITY Stroke Symptom Onset Unknown: No VTE Deep Vein Thrombosis/Pulmonary Embolism Present on Admission: No
[2022-06-15] MEDS ORDERED: guaiFENesin/DEXTROMETHORPHAN 5ML UD CUP PO PRN (13:03)
[2022-06-15] MEDS ORDERED: diphenhydrAMINE 25 MG CAPSULE PO PRN (13:06)
[2022-06-16] MEDS: methylPREDNISolone SOD SUCC 125 MG/2 ML VIAL IV SCH ×4 (00:13→23:05)
[2022-06-16] MEDS: IPRATROPIUM/ALBUTEROL 3 ML AMPUL.NEB NEB SCH ×6 (03:09→19:22)
[2022-06-16] MEDS: 0.9 % SODIUM CHLORIDE 10 ML SYRINGE IV SCH ×3 (05:48→23:07)
[2022-06-16 06:35] LABS: Basophils # (Auto) 0.03 K/mcL (0.00-0.30); Basophils % (Auto) 0.1 % (0.0-2.0); Eosinophils # (Auto) 0.01 K/mcL (0.00-0.70); Eosinophils % (Auto) 0 % (0.0-7.0); Hematocrit 39.8 % (40.1-51.0); Hemoglobin 12.4 g/dL (13.7-17.5); Lymphocytes # (Auto) 0.92 K/mcL (1.50-4.80); Lymphocytes % (Auto) 3.6 % (15.5-49.0); Mean Cell Volume 85.8 fL (80.0-100.0); Mean Corpuscular HGB Conc 31.2 g/dL (31.0-36.0); Mean Platelet Volume 11.2 fL (8.8-12.5); Monocytes # (Auto) 0.59 K/mcL (0.10-0.90); Monocytes % (Auto) 2.3 % (1.0-12.0); Neutrophils % (Auto) 93.4 % (38.0-78.0); Platelet Count 361 K/mcL (140-440); RBC 4.64 M/mcL (4.63-6.08); Red Cell Distribution Width 13.2 % (11.5-14.5); WBC 25.7 K/mcL (4.5-11.0)
--- NOTE | 2022-06-16 07:26 | EKG ---
[facility] Test Date: 2022-06-14 Pat Name: Ned Fortune Department: ED Room: Gender: Male [employer]: CECIL : 1965 Requested By: Javan Osman Order Number: [id number] Reading MD: Jasbir Lopez Measurements Intervals [place] Rate: 121 P: 14 OR: 161 QRS: -16 QRSD: 79 T: -37 QT: 331 QTc: 470 Interpretive Statements Sinus tachycardia Borderline left axis deviation Abnormal T, consider ischemia, diffuse leads Electronically Signed On 06-16-2022 7:26:00 PST by Jasbir Lopez /store/[email or web address]/[id number]/[email or web address]/[id number].pdf
[2022-06-16 07:32] LABS: ALT/SGPT 27 U/L (<40); AST/SGOT 24 U/L (<40); Albumin 3.6 gm/dL (3.2-5.2); Alkaline Phosphatase 102 U/L (39-117); Bilirubin,Direct < 0.2 mg/dL (0-0.3); Bilirubin,Total 0.2 mg/dL (0.1-1.0); Blood Urea Nitrogen 20 mg/dL (6-20); Calcium 9.3 mg/dL (8.6-10.4); Carbon Dioxide 33 mmol/L (22-30); Chloride 102 mmol/L (96-108); Globulin 3.6 gm/dL (2.2-3.7); Glomerular Filtration Rate 103; Glucose 114 mg/dL (70-105); Lactate Dehydrogenase 172 U/L (135-225); Phosphorous 5.6 mg/dL (2.5-4.5); Triglycerides 67 mg/dL (<150); Uric Acid 4.8 mg/dL (2.5-8.0)
[2022-06-16] MEDS: OMEPRAZOLE 20 MG CAPSULE PO SCH (07:37)
[2022-06-16] MEDS: DOCUSATE SODIUM 100 MG CAPSULE PO SCH ×2 (07:38→22:49)
--- NOTE | 2022-06-16 07:45 | Internal Med Progress Note ---
SUBJECTIVE Subjective Patient information: Note initiated : 06/16/22 at 7:39 am Service Date, if different from initiated Date: [] Patient: Ned Fortune 57 y/o M admitted on 06/15/22 for Shortness of breath. Chief Complaint: [] Interval history: History of present illness: Mr. Fortune is a 57 year old male with a history of severe pulmonary fibrosis on prednisone 10 mg daily, COPD, bronchiectasis, chronic hypoxia requiring 8 to 10 L/min oxygen supplementation, GERD status post Clara fundoplication, Rico's esophagus Who presented to the emergency department with 2 to 3 days of worsening dyspnea and increased oxygen requirement at home. The patient says he has been having difficulty maintaining his oxygen saturation in spite of supplementing oxygen from a oxygen tank at home in addition to using his oxygen concentrator. In the ED, the patient initially required a significantly higher amount of oxygen supplementation than his baseline however he was able to wean down to about 10 L/min however desaturates quickly with minimal exertion. The patient denies recent fevers and chills and is afebrile in the emergency department. The patient does say that he had a mostly nonproductive cough for a couple days. CBC shows a white blood cell count of 19,400, the patient does have leukocytosis since December 2021 per chart review. Venous blood gas in the ED did not showed a pH in upper normal range with the pH of 7.42, venous PCO2 was upper range of normal at 51. Lactic acid was upper range of normal at 1.9. Basic metabolic panel was fairly unremarkable. Leslie SARS-CoV-2, influenza in the ED was negative. Chest x-ray shows findings consistent with severe pulmonary fibrosis and I did not find any new infiltrates to suggest pneumonia. Radiology report pending on the chest x-ray at the time of admission. We discussed CODE STATUS prior to admission, the patient wishes his code to be DNR/DNI. 06/16 Patient has cough mostly nonproductive. Patient feels breathing is about 50% better. Does feel anxious at times and was asking about medication. Patient on 10 to 15 L nasal cannula last night. CTA did not show PE but did show severe pulmonary fibrosis with some progression. Hyperphosphatemia noted, monitor. Review of Systems: denies headache/fever/chills/nausea/vomiting/chest or abdominal pain/diarrhea. Otherwise see above. PHYSICAL EXAM: General: Alert, Awake, No acute Distress Eyes/N/T: EOMI, Head/Neck: neck supple, CV: Tachycardic but regular, No murmurs, Pulm: mild Rales/rhonchi b/l, no wheezing Abd: soft, nontender, +BS x4 Ext: no clubbing/cyanosis/edema Neuro: Alert, no focal deficits, moves all extremities, Skin: warm/dry Constitutional Vitals: Vital Signs Temp Pulse Resp BP Pulse Ox O2 Del Method O2 Flow Rate 97.0 F 101 H 20 113/87 99 High Flow Nasal Cannula 9 06/16/22 04:01 06/16/22 06:41 06/16/22 06:41 06/16/22 06:00 06/16/22 06:41 06/16/22 06:41 06/16/22 06:41 Period Temp Pulse Resp BP Sys/Ashraf Pulse Ox O2 Del Method O2 Flow Rate Last 24 Hr 97.0 F-98.0 F 86-124 17-44 103-135/80-103 92-100 High Flow Nasal Cannula-High Flow Nasal Cannula, Bubble Humidifier 9-15 Intake and Output 06/15/22 06/16/22 06/16/22 19:59 03:59 11:59 Intake Total 960 350 Output Total 225 275 Balance 735 75 Weight 49.351 kg Intake & Output: Intake & Output 06/15/22 06/16/22 06/16/22 19:59 03:59 11:59 Intake Total 960 350 Output Total 225 275 Balance 735 75 Weight 49.351 kg Intake: Oral 960 350 Output: Void Amount 225 275 Other: Urine Appearance Clear Clear Urine Color Bright Yellow Dark Yellow Urine Odor Normal OBJ DATA Labs 06/16/22 05:24 06/16/22 05:23 Labs: Abnormal Lab Results 06/16/22 06/16/22 06/15/22 05:24 05:23 00:46 WBC 25.7 H Hgb 12.4 L Hct 39.8 L MCHC Immature Gran % (Auto) 0.6 H Neut % (Auto) 93.4 H Lymph % (Auto) 3.6 L Lymph # (Auto) 0.92 L [place] # (Auto) Immature Gran # 0.16 H Absolute Neutrophils 23.99 H POC VBG HCO3 POC VBG Total CO2 POC VBG Base Excess Carbon Dioxide 33 H POC Total CO2 Anion Gap 7.0 L Glucose 114 H 112 H POC Glucose POC WB Ioniz Calcium Phosphorus 5.6 H Alkaline Phosphatase 125 H NT-Pro-B Natriuret Pep Globulin 3.8 H Triglycerides 154 H 06/14/22 06/14/22 06/14/22 23:58 23:57 23:26 WBC 19.4 H Hgb 12.9 L Hct MCHC 30.7 L Immature Gran % (Auto) Neut % (Auto) 80.0 H Lymph % (Auto) 12.3 L Lymph # (Auto) [place] # (Auto) 1.18 H Immature Gran # 0.07 H Absolute Neutrophils 15.52 H POC VBG HCO3 POC VBG Total CO2 POC VBG Base Excess Carbon Dioxide POC Total CO2 31.0 H Anion Gap Glucose POC Glucose 121 H POC WB Ioniz Calcium 1.11 L Phosphorus Alkaline Phosphatase NT-Pro-B Natriuret Pep 1549.0 H Globulin Triglycerides 06/14/22 23:26 WBC Hgb Hct MCHC Immature Gran % (Auto) Neut % (Auto) Lymph % (Auto) Lymph # (Auto) [place] # (Auto) Immature Gran # Absolute Neutrophils POC VBG HCO3 32.9 H POC VBG Total CO2 34.0 H POC VBG Base Excess 8.0 H* Carbon Dioxide POC Total CO2 Anion Gap Glucose POC Glucose POC WB Ioniz Calcium Phosphorus Alkaline Phosphatase NT-Pro-B Natriuret Pep Globulin Triglycerides Meds: Medications Acetaminophen (Acetaminophen 325 Mg Tablet) 650 mg PO Q6HP PRN; Protocol PRN Reason: Per Pain Protocol/Fever > 101 Albuterol Sulfate (Albuterol Sulfate 2.5 Mg/3 Ml Nebulizer) 2.5 mg NEB Q4HRT PRN PRN Reason: Wheezing Albuterol/Ipratropium (Ipratropium/Albuterol 3 Ml Ampul.Neb) 3 ml NEB Q4HRT [facility] Last Admin: 06/16/22 06:41 Dose: 3 ml Diphenhydramine HCl (Diphenhydramine 25 Mg Capsule) 25 mg PO BIDP PRN PRN Reason: Allergic Reaction Docusate Sodium (Docusate Sodium 100 Mg Capsule) 100 mg PO BID [facility] Last Admin: 06/16/22 07:38 Dose: Not Given Enoxaparin Sodium (Enoxaparin 40 Mg/0.4 Ml Syringe) 40 mg SQ DAILY [facility] Last Admin: 06/15/22 08:42 Dose: 40 mg Guaifenesin (Guaifenesin/Dextromethorphan 5ml Ud Cup) 10 ml PO Q4HP PRN PRN Reason: Cough Lactulose (Lactulose 20 Gm/30 Ml Oral.Alexus) 10 gm PO DAILYP PRN PRN Reason: Constipation Methylprednisolone Sodium Succinate (Methylprednisolone Sod Succ 125 Mg/2 Ml Vial) 62.5 mg IV Q8H [facility] Last Admin: 06/16/22 00:13 Dose: 62.5 mg Omeprazole (Omeprazole 20 Mg Capsule) 40 mg PO QDAY [facility] Last Admin: 06/16/22 07:37 Dose: 40 mg Ondansetron HCl (Ondansetron 4 Mg/2 Ml Vial) 4 mg IV Q4HP PRN; Protocol PRN Reason: Nausea And Vomiting Umeclidinium- Vilanterol [Anoro Ellipta] 62.5-25 Mg 1 dose INH Q24H [facility] Last Admin: 06/15/22 13:25 Dose: 1 dose Senna (Sennosides 1 Tablet) 2 tab PO HSP PRN PRN Reason: Constipation Sodium Chloride (0.9 % Sodium Chloride 10 Ml Syringe) 10 ml IV Q8 [facility] Last Admin: 06/16/22 05:48 Dose: 10 ml A/P Narrative A/P Narrative: A: #Acute on chronic hypoxic respiratory failure: likely 2/2 pulmonary fibrosis -Flu/RSV/Covid neg -CTA no PE, but severe pulm fibrosis w/progression -on 10-15L HFNC o/n #Probable pulmonary fibrosis exacerbation: #COPD / Severe chronic pulmonary fibrosis / Bronchiectasis (8-10L O2@home): #Chronic leukocytosis #GERD / Rico's esophagus: #h/o colon cancer #Malnourishment #Anemia, chronic: #Hyperphos: #Anxiety: prn ativan #Guarded prognosis given severe pulmonary fibrosis and multiple hospitalizations Plan -Solumedrol (wean) -Oxygen supplementation with nasal cannula for now per patient's request, transition to Vapotherm if the patient decompensates. -Scheduled Duonebs and prn Albuterol nebs. -Consider antibiotic coverage if any concern for infection -monitor/trend electrolyte abnormalities -Follow up pending radiology report for chest xray. -PT and OT. -f/u closely with pulmonology -ppx: Lovenox / ppi Code status: DNR/DNI Time Spent With Patient Time: Total time spent is greater than 50% in coordination of care (as documented) at patient's floor/unit and/or counseling patient: Subsequent: Total time with patient: 50 - 65 Minutes QUALITY Stroke Symptom Onset Unknown: No VTE Deep Vein Thrombosis/Pulmonary Embolism Present on Admission: No
[2022-06-16] MEDS ORDERED: IPRATROPIUM/ALBUTEROL 3 ML AMPUL.NEB NEB PRN (07:47)
[2022-06-16] MEDS: ENOXAPARIN 40 MG/0.4 ML SYRINGE SQ SCH (08:22)
[2022-06-16] MEDS: BENZONATATE 100 MG CAPSULE PO PRN (10:26)
[2022-06-16] MEDS: LORazepam 2 MG/ML VIAL IV PRN ×2 (13:36→18:58)
[2022-06-17] MEDS: IPRATROPIUM/ALBUTEROL 3 ML AMPUL.NEB NEB SCH ×2 (01:47→07:58)
[2022-06-17] MEDS: 0.9 % SODIUM CHLORIDE 10 ML SYRINGE IV SCH ×3 (05:49→21:19)
[2022-06-17 07:21] LABS: Basophils # (Auto) 0.02 K/mcL (0.00-0.30); Basophils % (Auto) 0.1 % (0.0-2.0); Eosinophils # (Auto) 0.01 K/mcL (0.00-0.70); Eosinophils % (Auto) 0 % (0.0-7.0); Hematocrit 40.2 % (40.1-51.0); Hemoglobin 12.3 g/dL (13.7-17.5); Lymphocytes # (Auto) 0.82 K/mcL (1.50-4.80); Lymphocytes % (Auto) 3.3 % (15.5-49.0); Mean Corpuscular HGB Conc 30.6 g/dL (31.0-36.0); Mean Platelet Volume 11.5 fL (8.8-12.5); Monocytes # (Auto) 0.69 K/mcL (0.10-0.90); Monocytes % (Auto) 2.8 % (1.0-12.0); Neutrophils % (Auto) 92.9 % (38.0-78.0); Platelet Count 353 K/mcL (140-440); RBC 4.57 M/mcL (4.63-6.08); Red Cell Distribution Width 13.2 % (11.5-14.5); WBC 24.5 K/mcL (4.5-11.0)
--- NOTE | 2022-06-17 07:37 | Internal Med Progress Note ---
SUBJECTIVE Subjective Patient information: Note initiated : 06/17/22 at 7:35 am Service Date, if different from initiated Date: [] Patient: Ned Fortune 57 y/o M admitted on 06/15/22 for Shortness of breath. Chief Complaint: [] Interval history: History of present illness: Mr. Fortune is a 57 year old male with a history of severe pulmonary fibrosis on prednisone 10 mg daily, COPD, bronchiectasis, chronic hypoxia requiring 8 to 10 L/min oxygen supplementation, GERD status post Clara fundoplication, Rico's esophagus Who presented to the emergency department with 2 to 3 days of worsening dyspnea and increased oxygen requirement at home. The patient says he has been having difficulty maintaining his oxygen saturation in spite of supplementing oxygen from a oxygen tank at home in addition to using his oxygen concentrator. In the ED, the patient initially required a significantly higher amount of oxygen supplementation than his baseline however he was able to wean down to about 10 L/min however desaturates quickly with minimal exertion. The patient denies recent fevers and chills and is afebrile in the emergency department. The patient does say that he had a mostly nonproductive cough for a couple days. CBC shows a white blood cell count of 19,400, the patient does have leukocytosis since December 2021 per chart review. Venous blood gas in the ED did not showed a pH in upper normal range with the pH of 7.42, venous PCO2 was upper range of normal at 51. Lactic acid was upper range of normal at 1.9. Basic metabolic panel was fairly unremarkable. Leslie SARS-CoV-2, influenza in the ED was negative. Chest x-ray shows findings consistent with severe pulmonary fibrosis and I did not find any new infiltrates to suggest pneumonia. Radiology report pending on the chest x-ray at the time of admission. We discussed CODE STATUS prior to admission, the patient wishes his code to be DNR/DNI. 06/16 Patient has cough mostly nonproductive. Patient feels breathing is about 50% better. Does feel anxious at times and was asking about medication. Patient on 10 to 15 L nasal cannula last night. CTA did not show PE but did show severe pulmonary fibrosis with some progression. Hyperphosphatemia noted, monitor. 06/17 Patient feels like he is breathing a little better today. Continued cough. Was on 12 to 15 L overnight but currently on 10 L. We will continue weaning down as able. Continue pulmonary toilet and as needed nebulizers. Change up butyryl to leave albuterol for tachycardia. Review of Systems: denies headache/fever/chills/nausea/vomiting/chest or abdominal pain/diarrhea. Otherwise see above. PHYSICAL EXAM: General: Alert, Awake, No acute Distress Eyes/N/T: EOMI, Head/Neck: neck supple, CV: Tachycardic but regular, No murmurs, Pulm: subtle fine Rales b/l, no rhonchi or wheezing Abd: soft, nontender, +BS x4 Ext: no clubbing/cyanosis/edema Neuro: Alert, no focal deficits, moves all extremities, Skin: warm/dry Constitutional Vitals: Vital Signs Temp Pulse Resp BP Pulse Ox O2 Del Method O2 Flow Rate 97.6 F 122 H 17 122/93 100 High Flow Nasal Cannula, Bubble Humidifier 15 06/17/22 04:00 06/17/22 00:01 06/17/22 06:00 06/17/22 06:00 06/17/22 06:00 06/17/22 06:00 06/17/22 06:00 Period Temp Pulse Resp BP Sys/Ashraf Pulse Ox O2 Del Method O2 Flow Rate Last 24 Hr 97.0 F-97.9 F 114-133 17-37 86-140/69-97 89-100 High Flow Nasal Cannula, Bubble Humidifier-High Flow Nasal Cannula, Bubble Humidifier 9- 15 Intake and Output 06/16/22 06/17/22 06/17/22 19:59 03:59 11:59 Intake Total 680 700 220 Output Total 225 250 Balance 455 450 220 Weight 49.351 kg 48.988 kg Intake & Output: Intake & Output 06/16/22 06/17/22 06/17/22 19:59 03:59 11:59 Intake Total 680 700 220 Output Total 225 250 Balance 455 450 220 Weight 49.351 kg 48.988 kg Intake: Oral 680 700 220 Output: Void Amount 225 250 Other: Meal Dinner Percent of Meal Consumed 100% Feeding Ability Independent Urine Appearance Clear Urine Color Light Antonette Dark Yellow OBJ DATA Labs 06/17/22 05:09 06/16/22 05:23 Labs: Abnormal Lab Results 06/17/22 06/16/22 06/16/22 05:09 05:24 05:23 WBC 24.5 H 25.7 H RBC 4.57 L Hgb 12.3 L 12.4 L Hct 39.8 L MCHC 30.6 L Immature Gran % (Auto) 0.9 H 0.6 H Neut % (Auto) 92.9 H 93.4 H Lymph % (Auto) 3.3 L 3.6 L Lymph # (Auto) 0.82 L 0.92 L Corson # (Auto) Immature Gran # 0.23 H 0.16 H Absolute Neutrophils 22.76 H 23.99 H POC VBG HCO3 POC VBG Total CO2 POC VBG Base Excess Carbon Dioxide 33 H POC Total CO2 Anion Gap 7.0 L Glucose 114 H POC Glucose POC WB Ioniz Calcium Phosphorus 5.6 H Alkaline Phosphatase NT-Pro-B Natriuret Pep Globulin Triglycerides 06/15/22 06/14/22 06/14/22 00:46 23:58 23:57 WBC 19.4 H RBC Hgb 12.9 L Hct MCHC 30.7 L Immature Gran % (Auto) Neut % (Auto) 80.0 H Lymph % (Auto) 12.3 L Lymph # (Auto) Corson # (Auto) 1.18 H Immature Gran # 0.07 H Absolute Neutrophils 15.52 H POC VBG HCO3 POC VBG Total CO2 POC VBG Base Excess Carbon Dioxide POC Total CO2 Anion Gap Glucose 112 H POC Glucose POC WB Ioniz Calcium Phosphorus Alkaline Phosphatase 125 H NT-Pro-B Natriuret Pep 1549.0 H Globulin 3.8 H Triglycerides 154 H 06/14/22 06/14/22 23:26 23:26 WBC RBC Hgb Hct MCHC Immature Gran % (Auto) Neut % (Auto) Lymph % (Auto) Lymph # (Auto) Corson # (Auto) Immature Gran # Absolute Neutrophils POC VBG HCO3 32.9 H POC VBG Total CO2 34.0 H POC VBG Base Excess 8.0 H* Carbon Dioxide POC Total CO2 31.0 H Anion Gap Glucose POC Glucose 121 H POC WB Ioniz Calcium 1.11 L Phosphorus Alkaline Phosphatase NT-Pro-B Natriuret Pep Globulin Triglycerides Meds: Medications Acetaminophen (Acetaminophen 325 Mg Tablet) 650 mg PO Q6HP PRN; Protocol PRN Reason: Per Pain Protocol/Fever > 101 Albuterol/Ipratropium (Ipratropium/Albuterol 3 Ml Ampul.Neb) 3 ml NEB Q4HP PRN PRN Reason: Shortness Of Breath Albuterol/Ipratropium (Ipratropium/Albuterol 3 Ml Ampul.Neb) 3 ml NEB Q6HRT [facility] Last Admin: 06/17/22 01:47 Dose: Not Given Benzonatate (Benzonatate 100 Mg Capsule) 200 mg PO TIDP PRN PRN Reason: Cough Last Admin: 06/16/22 10:26 Dose: 200 mg Diphenhydramine HCl (Diphenhydramine 25 Mg Capsule) 25 mg PO BIDP PRN PRN Reason: Allergic Reaction Docusate Sodium (Docusate Sodium 100 Mg Capsule) 100 mg PO BID [facility] Last Admin: 06/16/22 22:49 Dose: Not Given Enoxaparin Sodium (Enoxaparin 40 Mg/0.4 Ml Syringe) 40 mg SQ DAILY [facility] Last Admin: 06/16/22 08:22 Dose: 40 mg Guaifenesin (Guaifenesin/Dextromethorphan 5ml Ud Cup) 10 ml PO Q4HP PRN PRN Reason: Cough Last Admin: 06/16/22 07:45 Dose: 10 ml Lactulose (Lactulose 20 Gm/30 Ml Oral.Alexus) 10 gm PO DAILYP PRN PRN Reason: Constipation Lorazepam (Lorazepam 2 Mg/Ml Vial) 0.5 mg IV Q4-6HP PRN PRN Reason: ANXIETY/SEDATION Last Admin: 06/16/22 18:58 Dose: 0.5 mg Methylprednisolone Sodium Succinate (Methylprednisolone Sod Succ 125 Mg/2 Ml Vial) 62.5 mg IV Q8H [facility] Last Admin: 06/16/22 23:05 Dose: 62.5 mg Omeprazole (Omeprazole 20 Mg Capsule) 40 mg PO QDAY [facility] Last Admin: 06/16/22 07:37 Dose: 40 mg Ondansetron HCl (Ondansetron 4 Mg/2 Ml Vial) 4 mg IV Q4HP PRN; Protocol PRN Reason: Nausea And Vomiting Umeclidinium- Vilanterol [Anoro Ellipta] 62.5-25 Mg 1 dose INH Q24H [facility] Last Admin: 06/16/22 08:22 Dose: 1 dose Senna (Sennosides 1 Tablet) 2 tab PO HSP PRN PRN Reason: Constipation Sodium Chloride (0.9 % Sodium Chloride 10 Ml Syringe) 10 ml IV Q8 NANCY Last Admin: 06/17/22 05:49 Dose: 10 ml A/P Narrative A/P Narrative: A: #Acute on chronic hypoxic respiratory failure: likely 2/2 pulmonary fibrosis -Flu/RSV/Covid neg -CTA no PE, but severe pulm fibrosis w/progression -on 12-15L HFNC o/n #Pulmonary fibrosis exacerbation: #COPD / Severe chronic pulmonary fibrosis / Bronchiectasis (8-10L O2@home): #Chronic leukocytosis #GERD / Rico's esophagus: #h/o colon cancer #Malnourishment #Anemia, chronic: #Hyperphos: #Anxiety: prn ativan #Guarded prognosis given severe pulmonary fibrosis and multiple hospitalizations Plan -Solumedrol (wean) -Oxygen supplementation with nasal cannula for now per patient's request, transition to Vapotherm if the patient decompensates. -Scheduled xopenex/ipratropium and prn -Consider antibiotic coverage if any concern for infection -monitor/trend electrolyte abnormalities -f/u chest imaging if worsens -PT and OT. -f/u closely with pulmonology -ppx: Lovenox / ppi Code status: DNR/DNI Time Spent With Patient Time: Total time spent is greater than 50% in coordination of care (as documented) at patient's floor/unit and/or counseling patient: Subsequent: Total time with patient: 50 - 65 Minutes QUALITY Stroke Symptom Onset Unknown: No VTE Deep Vein Thrombosis/Pulmonary Embolism Present on Admission: No
[2022-06-17 08:03] LABS: ALT/SGPT 34 U/L (<40); AST/SGOT 27 U/L (<40); Albumin 3.3 gm/dL (3.2-5.2); Alkaline Phosphatase 88 U/L (39-117); Bilirubin,Direct < 0.2 mg/dL (0-0.3); Bilirubin,Total 0.3 mg/dL (0.1-1.0); Blood Urea Nitrogen 20 mg/dL (6-20); Calcium 8.8 mg/dL (8.6-10.4); Carbon Dioxide 31 mmol/L (22-30); Chloride 98 mmol/L (96-108); Globulin 3.2 gm/dL (2.2-3.7); Glomerular Filtration Rate 97; Glucose 97 mg/dL (70-105); Lactate Dehydrogenase 201 U/L (135-225); Phosphorous 4.3 mg/dL (2.5-4.5); Triglycerides 88 mg/dL (<150); Uric Acid 4.8 mg/dL (2.5-8.0)
[2022-06-17] MEDS: OMEPRAZOLE 20 MG CAPSULE PO SCH (08:20)
[2022-06-17] MEDS: DOCUSATE SODIUM 100 MG CAPSULE PO SCH ×2 (08:20→21:19)
[2022-06-17] MEDS: methylPREDNISolone SOD SUCC 125 MG/2 ML VIAL IV SCH ×3 (08:20→17:07)
[2022-06-17] MEDS: ENOXAPARIN 40 MG/0.4 ML SYRINGE SQ SCH (08:20)
[2022-06-17] MEDS: BENZONATATE 100 MG CAPSULE PO PRN ×2 (08:28→12:02)
[2022-06-17] MEDS ORDERED: TOCILIZUMAB 600 MG in 0.9 % SODIUM CHLORIDE 70 ML IV ONE (09:15)
[2022-06-17] MEDS: LEVALBUTEROL 1.25 MG/3 ML AMPUL.NEB NEB SCH ×2 (13:01→19:12)
[2022-06-17] MEDS: IPRATROPIUM 2.5 ML AMPUL.NEB NEB SCH ×2 (13:01→19:12)
[2022-06-17] MEDS: LORazepam 2 MG/ML VIAL IV PRN (14:17)
--- NOTE | 2022-06-17 15:21 | Discharge Summary ---
Discharge Provider Provider IMPORTANT FOLLOW-UP INFORMATION FOR PCP: Patient information: Note initiated : 06/17/22 at 3:18 pm Service Date, if different from initiated Date: [] Patient: Ned Fortune 57 y/o M admitted on 06/15/22 for Shortness of breath. Chief Complaint: [] Date of admission: 06/15/22 07:33 Discharge date: 06/18/22 Primary care physician: HAILEE Multani Consults: 06/15/22 Consult to Physician [CONS] Stat Comment: Consulting Provider: Mike Spann Reason For Exam: Physician to Consult COURSE Hospital Course Hospital course: Interval history: History of present illness: Mr. Fortune is a 57 year old male with a history of severe pulmonary fibrosis on prednisone 10 mg daily, COPD, bronchiectasis, chronic hypoxia requiring 8 to 10 L/min oxygen supplementation, GERD status post Clara fundoplication, Rico's esophagus Who presented to the emergency department with 2 to 3 days of worsening dyspnea and increased oxygen requirement at home. The patient says he has been having difficulty maintaining his oxygen saturation in spite of supplementing oxygen from a oxygen tank at home in addition to using his oxygen concentrator. In the ED, the patient initially required a significantly higher amount of oxygen supplementation than his baseline however he was able to wean down to about 10 L/min however desaturates quickly with minimal exertion. The patient denies recent fevers and chills and is afebrile in the emergency department. The patient does say that he had a mostly nonproductive cough for a couple days. CBC shows a white blood cell count of 19,400, the patient does have leukocytosis since December 2021 per chart review. Venous blood gas in the ED did not showed a pH in upper normal range with the pH of 7.42, venous PCO2 was upper range of normal at 51. Lactic acid was upper range of normal at 1.9. Basic metabolic panel was fairly unremarkable. Leslie SARS-CoV-2, influenza in the ED was negative. Chest x-ray shows findings consistent with severe pulmonary fibrosis and I did not find any new infiltrates to suggest pneumonia. Radiology report pending on the chest x-ray at the time of admission. We discussed CODE STATUS prior to admission, the patient wishes his code to be DNR/DNI. 06/16 Patient has cough mostly nonproductive. Patient feels breathing is about 50% better. Does feel anxious at times and was asking about medication. Patient on 10 to 15 L nasal cannula last night. CTA did not show PE but did show severe pulmonary fibrosis with some progression. Hyperphosphatemia noted, monitor. 06/17 Patient feels like he is breathing a little better today. Continued cough. Was on 12 to 15 L overnight but currently on 10 L. We will continue weaning down as able. Continue pulmonary toilet and as needed nebulizers. Change up butyryl to leave albuterol for tachycardia. 06/18 Patient doing well. Back down to baseline. We will discharge today have close follow-up with risk mgr Extremely high risk for readmission given comorbidities, recommend follow-up with [facility] palliative care services. A: #Acute on chronic hypoxic respiratory failure: likely 2/2 pulmonary fibrosis -Flu/RSV/Covid neg -CTA no PE, but severe pulm fibrosis w/progression #Pulmonary fibrosis exacerbation: #COPD / Severe chronic pulmonary fibrosis / Bronchiectasis (8-10L O2@home): #Chronic leukocytosis #GERD / Rico's esophagus: #h/o colon cancer #Malnourishment #Anemia, chronic: #Hyperphos: #Anxiety: prn ativan #Guarded prognosis given severe pulmonary fibrosis and multiple hospitalizations Plan -steroid taper -f/u closely with pulmonology Discharge diagnosis: Acute on chronic hypoxic respiratory failure pulmonary fibrosis Secondary discharge diagnosis: COPD bronchiectasis chronic leukocytosis GERD malnourishment chronic anemia Anxiety Time Spent with Patient Time attestation: Total time spent providing and/or coordinating discharge services: Time spent: Greater than 30 minutes EXAM Constitutional Vitals: Temp Pulse Resp BP Pulse Ox O2 Del Method O2 Flow Rate 97.3 F 102 H 25 H 118/92 100 High Flow Nasal Cannula, Bubble Humidifier 9 06/17/22 12:30 06/17/22 14:00 06/17/22 14:00 06/17/22 14:00 06/17/22 14:00 06/17/22 14:00 06/17/22 14:00 Discharge Data Data Completed and Pending Labs on day of discharge: Labs from last 24 hours 06/17/22 06/17/22 05:09 05:09 WBC 24.5 H RBC 4.57 L Hgb 12.3 L Hct 40.2 MCV 88.0 MCH 26.9 MCHC 30.6 L RDW 13.2 Plt Count 353 MPV 11.5 Immature Gran % (Auto) 0.9 H Neut % (Auto) 92.9 H Lymph % (Auto) 3.3 L Lawrence % (Auto) 2.8 Eos % (Auto) 0 Baso % (Auto) 0.1 Lymph # (Auto) 0.82 L Lawrence # (Auto) 0.69 Eos # (Auto) 0.01 Baso # (Auto) 0.02 Immature Gran # 0.23 H Absolute Neutrophils 22.76 H Sodium 137 Potassium 4.4 Chloride 98 Carbon Dioxide 31 H Anion Gap 8.0 BUN 20 Creatinine 0.8 GFR Calculation 97 Glucose 97 Uric Acid 4.8 Calcium 8.8 Phosphorus 4.3 Magnesium 2.3 Total Bilirubin 0.3 Direct Bilirubin < 0.2 GGT 20 AST 27 ALT 34 Alkaline Phosphatase 88 Lactate Dehydrogenase 201 Total Protein 6.5 Albumin 3.3 Globulin 3.2 Albumin/Globulin Ratio 1.0 Triglycerides 88 Discharge Plan Patient/Caregiver Discharge Instructions Activity: increase activity as tolerated and resume usual activities as tolerated Diet: Regular Diet Instructions: COPD (Chronic Obstructive Pulmonary Disease) (DC) Activity Restrictions/Additional Instructions: Follow-up with PCP within 3 to 4 days Use Medrol Dosepak as prescribed Continue your home nebulizers Seek medical attention symptoms worsen Recommend f/u with [facility] health palliative services. Prescriptions: New lorazepam [Ativan] 0.5 mg tablet 0.5 mg PO TID PRN (Reason: anxiety) Qty: 20 0RF prednisone 10 mg tablet 40 mg PO QDAY Qty: 1 0RF Rx Instructions: Take 40mg once daily for 3 days then 20mg daily for 3 days then continue home prednisone regimen thereafter. Continued ipratropium-albuterol 0.5 mg-3 mg(2.5 mg base)/3 mL solution for nebulization 3 ml inhalation Q4HRT PRN (Reason: Wheezing) Qty: 100 6RF omeprazole 40 mg capsule,delayed release(DR/EC) 40 mg PO QDAY Qty: 90 1RF (DME) Electric mobility scooter See Rx Instructions .Route .MEDSUPPLY Qty: 1 0RF Rx Instructions: Patient unable to ambulate due to severe lung disease. albuterol sulfate 90 mcg/actuation HFA aerosol inhaler 2 puff INHALATION Q4HP PRN (Reason: Shortness Of Breath) Qty: 8.5 2RF umeclidinium 62.5 mcg-vilanterol 25 mcg/actuation powdr for inhalation 62.5-25 mcg/actuation blister with device 1 inh INHALATION Q24H Qty: 60 1RF Rx Instructions: 340B plan. prednisone 10 mg tablet 10 mg PO QAM Qty: 30 4RF cetirizine 10 mg capsule 10 mg PO QDAY Rx Instructions: qd diphenhydramine HCl [Benadryl Allergy] 25 mg tablet 25 - 50 mg PO BID Rx Instructions: Pt states takes at 1800 and 2 010 dextromethorphan-guaifenesin [Diabetic Tussin DM] 10-100 mg/5 mL Liquid 10 ml PO Q4HP PRN (Reason: Cough) Qty: 500 0RF Follow Up Plan Follow up with: Adair Ramirez MD [Physician] - Liane Howell ARNP [Primary Care Provider] - 06/18/22 (COPD exacerbation) Patient Disposition: Home, Self-Care Prognosis: Undetermined Overall status at discharge: patient is progressing back to baseline Discharge Orders: Discharge Order (Routine); Ordered 06/18/22 Ordered By: Josiah Hughes [facility] VTE Deep Vein Thrombosis/Pulmonary Embolism Present on Admission: No
[2022-06-18] MEDS: methylPREDNISolone SOD SUCC 125 MG/2 ML VIAL IV SCH ×2 (00:48→08:18)
[2022-06-18] MEDS: LEVALBUTEROL 1.25 MG/3 ML AMPUL.NEB NEB SCH ×2 (00:49→07:51)
[2022-06-18] MEDS: IPRATROPIUM 2.5 ML AMPUL.NEB NEB SCH ×2 (00:49→07:49)
[2022-06-18] MEDS: 0.9 % SODIUM CHLORIDE 10 ML SYRINGE IV SCH (05:00)
[2022-06-18 06:52] LABS: Basophils # (Auto) 0.02 K/mcL (0.00-0.30); Basophils % (Auto) 0.1 % (0.0-2.0); Eosinophils # (Auto) 0.01 K/mcL (0.00-0.70); Eosinophils % (Auto) 0.1 % (0.0-7.0); Hematocrit 39.5 % (40.1-51.0); Hemoglobin 12.2 g/dL (13.7-17.5); Lymphocytes # (Auto) 0.57 K/mcL (1.50-4.80); Lymphocytes % (Auto) 3.3 % (15.5-49.0); Mean Cell Volume 87.4 fL (80.0-100.0); Mean Corpuscular HGB Conc 30.9 g/dL (31.0-36.0); Mean Platelet Volume 11.5 fL (8.8-12.5); Monocytes # (Auto) 0.61 K/mcL (0.10-0.90); Monocytes % (Auto) 3.5 % (1.0-12.0); Neutrophils % (Auto) 92.4 % (38.0-78.0); Platelet Count 348 K/mcL (140-440); RBC 4.52 M/mcL (4.63-6.08); Red Cell Distribution Width 13.1 % (11.5-14.5); WBC 17.4 K/mcL (4.5-11.0)
[2022-06-18] MEDS: OMEPRAZOLE 20 MG CAPSULE PO SCH (08:19)
[2022-06-18] MEDS: ENOXAPARIN 40 MG/0.4 ML SYRINGE SQ SCH (08:19)
[2022-06-18] MEDS: DOCUSATE SODIUM 100 MG CAPSULE PO SCH (08:26)
[2022-06-18] MEDS: BENZONATATE 100 MG CAPSULE PO PRN (12:35)
[2022-06-18] MEDS ORDERED: methylPREDNISolone SOD SUCC 40 MG/ML VIAL IV SCH (16:00)
== END 2022-06-18 13:30 | disposition home health service (06) | DRG 189 ==
LOC: ED 23:07 → ICU 06-15 07:33
PROVIDERS: ADMIT Internal Medicine; ATTEND Internal Medicine

== ENCOUNTER 2022-06-30 13:02 | Inpatient (IN) ==
--- NOTE | 2022-06-30 13:20 | Emergency Department Note ---
HPI General Chief complaint: Shortness of Breath/Dyspnea Stated complaint: shortness of breath, O2 62% on 10L high flow. Time Seen by Provider: 06/30/22 13:20 Source: patient and EMS Mode of arrival: EMS Limitations: no limitations History of Present Illness HPI Narrative: Narrative: Patient is a 57-year-old male with a history significant for COPD and pulmonary fibrosis who presents to the emergency department due to shortness of breath and hypoxemia. Patient's is present and provides a portion of history. She states that he began to have some need for increased O2 approximately 3 days ago, but this morning is when he began to have significant symptoms. Patient states that he has had significant shortness of breath and has had to work hard to breathe. He endorses cough and runny nose as well. He denies any other symptoms at this time. Importantly, patient does state that he is a DNR/DNI. Related Data Home Medications Medication Instructions Recorded Confirmed cetirizine 10 mg capsule 10 mg PO QDAY 08/05/19 06/30/22 diphenhydramine HCl 25 mg tablet 25 - 50 mg PO BID 12/05/21 06/30/22 (Benadryl Allergy) Previous Rx's Medication Instructions Recorded dextromethorphan-guaifenesin 10 10 ml PO Q4HP PRN Cough #500 mL 01/04/22 mg-100 mg/5 mL oral liquid (Diabetic Tussin DM) ipratropium 0.5 mg-albuterol 3 mg 3 ml inhalation Q4HRT PRN Wheezing 01/21/22 (2.5 mg base)/3 mL [facility] #[facility] [employer] [facility] #1 ea 03/19/22 albuterol sulfate 90 mcg/actuation 2 puff inhalation Q4HP PRN 04/08/22 aerosol inhaler Shortness Of Breath #8.5 grams umeclidinium 62.5 mcg-vilanterol 1 inh inhalation Q24H #60 ea 05/15/22 25 mcg/actuation powdr for inhalation (Anoro Ellipta) prednisone 10 mg tablet 10 mg PO QAM #30 tabs 06/12/22 lorazepam 0.5 mg tablet (Ativan) 0.5 mg PO TID PRN anxiety #20 tabs 06/17/22 prednisone 10 mg tablet 40 mg PO QDAY #1 tab 06/18/22 omeprazole 40 mg capsule,delayed 40 mg PO QDAY #90 caps 06/25/22 release prednisone 10 mg tablet 40 mg PO QDAY #1 tab 07/07/22 Allergies Allergy/AdvReac Type Severity Reaction Status Date / Time naproxen AdvReac Intermediate purple Verified 06/14/22 23:31 spots on face Review of Systems ROS ROS Narrative: Narrative: Constitutional: Denies fever or weakness Eyes: Denies eye pain or vision change ENT ED: Reports rhinorrhea; Denies throat pain Cardiovascular: Denies chest pain, dyspnea on exertion, orthopnea or edema Respiratory: Reports shortness of breath and cough Gastrointestinal: Denies abdominal pain, nausea, vomiting, diarrhea, constipation, hematochezia or melena Genitourinary: Denies dysuria, frequency or hematuria Musculoskeletal: Denies back pain or myalgia Integumentary: Denies rash or lesions Neurological: Denies headache, weakness, numbness, confusion, abnormal gait or dizziness PFS Narrative Patient History Narrative: Narrative: Medical/Surgical/Family History All Active Problems (Updated 07/07/22 @ 12:57 by Xavi Newton MD) Pneumonia (Acute) Acute exacerbation of chronic obstructive pulmonary disease (Acute) Elevated brain natriuretic peptide (BNP) level (Acute) Acute and chronic respiratory failure with hypoxia (Acute) SOB (shortness of breath) (Acute) Chest pain (Acute) Anemia, normocytic normochromic (Acute) Acute and chronic respiratory failure with hypoxia (Acute) Muscular deconditioning (Chronic) SOB (shortness of breath) (Acute) Respiratory failure (Acute) Acute and chronic respiratory failure (Acute) CAP (community acquired pneumonia) (Acute) COPD exacerbation (Acute) H/O malignant neoplasm of colon (Chronic) Pulmonary fibrosis determined by high resolution computed tomography (Chronic) GERD with esophagitis (Chronic) Rico esophagus (Chronic) Bronchiectasis (Chronic) Hypoxemia (Chronic) Walking pneumonia (Chronic) SOB (shortness of breath) (Chronic) Tubulovillous adenoma (Chronic) Colon cancer (Chronic ~07/2014) Iron deficiency anemia (Chronic) Sinus congestion (Chronic) SOB (shortness of breath) on exertion (Chronic) COPD (chronic obstructive pulmonary disease) (Chronic) Eczema (Chronic) Elevated BP without diagnosis of hypertension (Chronic) Seasonal allergies (Chronic) Oxygen desaturation (Chronic) COVID-19 (Acute) Pneumonia due to COVID-19 virus (Acute) LLL pneumonia (Chronic) Medical History Rico esophagus Bronchiectasis Colon cancer (~07/2014) history of tubulovillous adenoma and colon carcinoma , removed 07/2014 COPD (chronic obstructive pulmonary disease) Eczema Elevated BP without diagnosis of hypertension GERD with esophagitis H/O malignant neoplasm of colon H/O: rheumatic fever Hypoxemia Iron deficiency anemia Muscular deconditioning Oxygen desaturation 11/26/2020: 75-88% on oxygen today in clinic Pulmonary fibrosis determined by high resolution computed tomography Seasonal allergies Tubulovillous adenoma Surgical History History of colonoscopy (08/11/16) abnormal History of repair of hiatal hernia (~04/2018) bleeding ulcers History of tonsillectomy and adenoidectomy (~1969) S/P Clara fundoplication (without gastrostomy tube) procedure Family History Father PNA (pneumonia) Prostate cancer Mother Kidney failure Grandfather Cancer Daughter Hemiplegic migraine Ovarian cyst Social History Smoking Status: Former smoker Alcohol Intake Frequency: holiday/special occasion only Substance Use: does not use Exam Narrative Narrative: Narrative: General Limitations: no limitations General appearance: Present alert and in no apparent distress; Absent anxious, appears intoxicated or sleepy Head Head: Present atraumatic and normocephalic Eye Eye: Present EOMI; Absent scleral icterus or nystagmus ENT ENT: Present mucous membranes moist Neck Neck: Present full ROM and trachea midline Chest Chest: Present normal inspection and symmetric chest wall rise; Absent tenderness Respiratory Respiratory: Present normal lung sounds bilaterally, rales/crackles and acces karina muscle use; Absent respiratory distress, wheezes or stridor Cardiovascular Cardiovascular: Present normal rhythm, tachycardia and normal heart sounds Adbominal Abdominal: Present soft and normal bowel sounds; Absent distention or tenderness Extremities Extremities: Present normal inspection and full ROM; Absent tenderness or pedal edema Back Back: Present normal inspection and full ROM Neurological Neurological: Present alert and oriented X3 Psychiatric Psychiatric: Present normal affect and normal mood Skin Skin: Present warm (WNL), dry and normal color Course Vital Signs Vital signs: Vital Signs Temperature 97.4 F 06/30/22 13:05 Pulse Rate 136 H 06/30/22 13:05 Respiratory Rate 40 H 06/30/22 13:05 Blood Pressure 112/92 06/30/22 13:05 Pulse Oximetry (%) 95 06/30/22 13:05 Oxygen Delivery Method BiPAP 06/30/22 13:05 Temperature 97.1 F 07/07/22 12:01 Pulse Rate 103 H 07/07/22 12:01 Respiratory Rate 42 H 07/07/22 12:01 Blood Pressure 130/100 07/07/22 12:01 Pulse Oximetry (%) 98 07/07/22 12:01 Oxygen Delivery Method High Flow Nasal Cannula 07/07/22 12:01 Oxygen Flow Rate (L/min) 10 07/07/22 12:01 MDM MDM Narrative Medical decision making narrative: Narrative: Patient is a 57-year-old male with a history significant for COPD and pulmonary fibrosis who presents to the emergency department due to shortness of breath and hypoxemia. Differential diagnoses include ACS, pneumonia, COPD exacerbation, new onset heart failure, COVID, and influenza. Patient is sepsis criteria due to elevated heart rate, respiratory rate, and elevated white blood cell count. He has findings on chest x-ray concerning for possible pneumonia. Patient has received antibiotics. Patient's BNP is elevated. He has received fluids, but due to concern for heart failure we are giving fluids cautiously. I have called and spoken with Dr. Mccray who is agreed to see and evaluate patient for admission. Lab Data 06/30/22 13:21 Labs: Lab Results 06/30/22 06/30/22 06/30/22 Range/Units 13:19 13:21 13:21 WBC 27.6 H (4.5-11.0) K/mcL RBC 4.97 (4.63-6.08) M/mcL Hgb 13.4 L (13.7-17.5) g/dL Hct 43.3 (40.1-51.0) % POC Hct (41-55) MCV 87.1 (80.0-100.0) fL MCH 27.0 (26.0-34.0) pg MCHC 30.9 L (31.0-36.0) g/dL RDW 13.5 (11.5-14.5) % Plt Count 334 (140-440) K/mcL MPV 10.8 (8.8-12.5) fL Immature Gran % (Auto) 0.7 H (0.0-0.5) % Neut % (Auto) 91.8 H (38.0-78.0) % Lymph % (Auto) 2.9 L (15.5-49.0) % [place] % (Auto) 4.1 (1.0-12.0) % Eos % (Auto) 0.3 (0.0-7.0) % Baso % (Auto) 0.2 (0.0-2.0) % Lymph # (Auto) 0.81 L (1.50-4.80) K/mcL [place] # (Auto) 1.12 H (0.10-0.90) K/mcL Eos # (Auto) 0.08 (0.00-0.70) K/mcL Baso # (Auto) 0.05 (0.00-0.30) K/mcL Immature Gran # 0.18 H (0.00-0.05) K/mcl Absolute Neutrophils 25.35 H (1.80-8.00) K/mcL D-Dimer (0.27-0.50) ug/mL POC VBG pH 7.40 (7.32-7.42) POC VBG pCO2 at Temp 53.4 H (41-51) POC VBG pO2 57 H (25-40) POC VBG HCO3 33.2 H (24-28) POC VBG Total CO2 35.0 H (25-29) POC Venous O2 Sat 89.0 H (40-70) POC VBG Base Excess 8.0 H* (-2-2) VBG Lactic Acid 1.8 (0.5-2) POC Sodium (133-145) POC Potassium (3.3-5.1) POC Chloride (96-108) POC Total CO2 (22-30) POC BUN (6-20) POC Creatinine (0.6-1.2) POC Glucose (70-105) POC WB Ioniz Calcium (1.16-1.32) NT-Pro-B Natriuret Pep 1160.0 H (<125.0) pg/mL Procalcitonin (<0.10) ng/mL POC Troponin I (0.00-0.08) 06/30/22 06/30/22 06/30/22 Range/Units 13:21 13:21 13:21 WBC (4.5-11.0) K/mcL RBC (4.63-6.08) M/mcL Hgb (13.7-17.5) g/dL Hct (40.1-51.0) % POC Hct 45.0 (41-55) MCV (80.0-100.0) fL MCH (26.0-34.0) pg MCHC (31.0-36.0) g/dL RDW (11.5-14.5) % Plt Count (140-440) K/mcL MPV (8.8-12.5) fL Immature Gran % (Auto) (0.0-0.5) % Neut % (Auto) (38.0-78.0) % Lymph % (Auto) (15.5-49.0) % [place] % (Auto) (1.0-12.0) % Eos % (Auto) (0.0-7.0) % Baso % (Auto) (0.0-2.0) % Lymph # (Auto) (1.50-4.80) K/mcL [place] # (Auto) (0.10-0.90) K/mcL Eos # (Auto) (0.00-0.70) K/mcL Baso # (Auto) (0.00-0.30) K/mcL Immature Gran # (0.00-0.05) K/mcl Absolute Neutrophils (1.80-8.00) K/mcL D-Dimer 0.38 (0.27-0.50) ug/mL POC VBG pH (7.32-7.42) POC VBG pCO2 at Temp (41-51) POC VBG pO2 (25-40) POC VBG HCO3 (24-28) POC VBG Total CO2 (25-29) POC Venous O2 Sat (40-70) POC VBG Base Excess (-2-2) VBG Lactic Acid (0.5-2) POC Sodium 142 (133-145) POC Potassium 4.1 (3.3-5.1) POC Chloride 102 (96-108) POC Total CO2 32.0 H (22-30) POC BUN 15 (6-20) POC Creatinine 0.7 (0.6-1.2) POC Glucose 124 H (70-105) POC WB Ioniz Calcium 1.21 (1.16-1.32) NT-Pro-B Natriuret Pep (<125.0) pg/mL Procalcitonin 0.05 (<0.10) ng/mL POC Troponin I (0.00-0.08) 06/30/22 Range/Units 13:21 WBC (4.5-11.0) K/mcL RBC (4.63-6.08) M/mcL Hgb (13.7-17.5) g/dL Hct (40.1-51.0) % POC Hct (41-55) MCV (80.0-100.0) fL MCH (26.0-34.0) pg MCHC (31.0-36.0) g/dL RDW (11.5-14.5) % Plt Count (140-440) K/mcL MPV (8.8-12.5) fL Immature Gran % (Auto) (0.0-0.5) % Neut % (Auto) (38.0-78.0) % Lymph % (Auto) (15.5-49.0) % [place] % (Auto) (1.0-12.0) % Eos % (Auto) (0.0-7.0) % Baso % (Auto) (0.0-2.0) % Lymph # (Auto) (1.50-4.80) K/mcL [place] # (Auto) (0.10-0.90) K/mcL Eos # (Auto) (0.00-0.70) K/mcL Baso # (Auto) (0.00-0.30) K/mcL Immature Gran # (0.00-0.05) K/mcl Absolute Neutrophils (1.80-8.00) K/mcL D-Dimer (0.27-0.50) ug/mL POC VBG pH (7.32-7.42) POC VBG pCO2 at Temp (41-51) POC VBG pO2 (25-40) POC VBG HCO3 (24-28) POC VBG Total CO2 (25-29) POC Venous O2 Sat (40-70) POC VBG Base Excess (-2-2) VBG Lactic Acid (0.5-2) POC Sodium (133-145) POC Potassium (3.3-5.1) POC Chloride (96-108) POC Total CO2 (22-30) POC BUN (6-20) POC Creatinine (0.6-1.2) POC Glucose (70-105) POC WB Ioniz Calcium (1.16-1.32) NT-Pro-B Natriuret Pep (<125.0) pg/mL Procalcitonin (<0.10) ng/mL POC Troponin I 0.04 (0.00-0.08) EKG Data EKG #1: EKG attestation: Yes I reviewed and interpreted this EKG. EKG results narrative: Sinus tachycardia with a rate of 139, normal axis, MI 114, QRS of 81, QTc of 456, T wave flattening in leads II, aVF, V4, V5, and V6, T wave inversion in lead III, and absence of ST elevation or depression. Discharge Plan Patient/Caregiver Discharge Instructions Pt seen by ASSOCIATE STORE MANAGER/PA only: No Clinical Impression: Pneumonia Activity: increase activity as tolerated Patient Disposition: Xfer As Inpt ([facility]) Condition: Serious Discharge Date/Time: 06/30/22 17:40
[2022-06-30 13:24] LABS: POC Calcium, Ionized 1.21 (1.16-1.32); POC Creatinine 0.7 (0.6-1.2); POC Potassium 4.1 (3.3-5.1)
[2022-06-30] MEDS ORDERED: cefTRIAXone 1 GM VIAL IV ONE (13:39)
--- NOTE | 2022-06-30 13:42 | XRay Report ---
CLINICAL INFORMATION: Dyspnea COMPARISON: 11/20/2020 12/30/2021, and 06/14/2022 plain film TECHNIQUE: Portable FINDINGS: Mild cardiomegaly is unchanged. Tracheobronchomegaly noted. The remaining mediastinum and pulmonary vessels are normal. Severe reticular-nodular interstitial fibrosis throughout both lungs is again noted. There is moderate vague patchy alveolar infiltrate superimposed in the upper lungs. These have been seen intermittently for the past six months but were not present on earlier exams. This could indicate superimposed infection or aspiration. There are no effusions. IMPRESSION: Severe diffuse interstitial fibrosis with possible pneumonia or aspiration superimposed in the upper lungs. Interpreted and Authenticated by: Pardeep Ruvalcaba 06/30/22
[2022-06-30] MEDS ORDERED: AZITHROMYCIN 500 MG in DEXTROSE 5% IN WATER 250 ML IV ONE (14:11)
[2022-06-30 14:17] LABS: Basophils # (Auto) 0.05 K/mcL (0.00-0.30); Basophils % (Auto) 0.2 % (0.0-2.0); Eosinophils # (Auto) 0.08 K/mcL (0.00-0.70); Eosinophils % (Auto) 0.3 % (0.0-7.0); Hematocrit 43.3 % (40.1-51.0); Hemoglobin 13.4 g/dL (13.7-17.5); Lymphocytes # (Auto) 0.81 K/mcL (1.50-4.80); Lymphocytes % (Auto) 2.9 % (15.5-49.0); Mean Cell Volume 87.1 fL (80.0-100.0); Mean Corpuscular HGB Conc 30.9 g/dL (31.0-36.0); Mean Platelet Volume 10.8 fL (8.8-12.5); Monocytes # (Auto) 1.12 K/mcL (0.10-0.90); Monocytes % (Auto) 4.1 % (1.0-12.0); Neutrophils % (Auto) 91.8 % (38.0-78.0); Platelet Count 334 K/mcL (140-440); RBC 4.97 M/mcL (4.63-6.08); Red Cell Distribution Width 13.5 % (11.5-14.5); WBC 27.6 K/mcL (4.5-11.0)
[2022-06-30] MEDS ORDERED: IPRATROPIUM/ALBUTEROL 3 ML AMPUL.NEB NEB ONE (14:27)
[2022-06-30] MEDS ORDERED: 0.9 % SODIUM CHLORIDE 500 ML IV ONE (15:11)
--- NOTE | 2022-06-30 17:17 | Internal Med History&Physical ---
HPI History of Present Illness Patient information: Note initiated : 06/30/22 at 5:10 pm Service Date, if different from initiated Date: [] Patient: Ned Fortune a 57 y/o M admitted on for shortness of breath, O2 62% on 10L high flow.. Chief Complaint: [] Chief complaint: SOB History of present illness: Mr. Fortune is a 57 year old M with severe end stage pulmonary fibrosis on 10L home O2. He presented with 1-2 days worsening SOB and lower CP and increased O2 demand. Workup in the ER notable for WBC 27, CXR with "severe diffuse intersitial fibrosis with possible pneumonia or aspiration superimposed in the upper lungs." He was markedly hypoxic and required BiPAP. Admission was requested. Constitutional Constitutional: Present as per HPI and anorexia; Absent chills or fever(s) Cardiovascular Cardiovascular: Present dyspnea; Absent chest pain at rest, diaphoresis or edema Respiratory Respiratory: Present cough, dyspnea, wheezing and pain on inspirtation; Absent hemoptysis Gastrointestinal Gastrointestinal: Absent abdominal pain Musculoskeletal Musculoskeletal: Present as per HPI Integumentary Integumentary: Present as per HPI Neurological Neurological: Present as per HPI PFSH PFSH All Active Problems (Updated 06/15/22 @ 05:06 by Javan Osman DO) Acute exacerbation of chronic obstructive pulmonary disease (Acute) Elevated brain natriuretic peptide (BNP) level (Acute) Acute and chronic respiratory failure with hypoxia (Acute) SOB (shortness of breath) (Acute) Chest pain (Acute) Anemia, normocytic normochromic (Acute) Acute and chronic respiratory failure with hypoxia (Acute) Muscular deconditioning (Chronic) SOB (shortness of breath) (Acute) Respiratory failure (Acute) Acute and chronic respiratory failure (Acute) CAP (community acquired pneumonia) (Acute) COPD exacerbation (Acute) H/O malignant neoplasm of colon (Chronic) Pulmonary fibrosis determined by high resolution computed tomography (Chronic) GERD with esophagitis (Chronic) Rico esophagus (Chronic) Bronchiectasis (Chronic) Hypoxemia (Chronic) Walking pneumonia (Chronic) SOB (shortness of breath) (Chronic) Tubulovillous adenoma (Chronic) Colon cancer (Chronic ~07/2014) Iron deficiency anemia (Chronic) Sinus congestion (Chronic) SOB (shortness of breath) on exertion (Chronic) COPD (chronic obstructive pulmonary disease) (Chronic) Eczema (Chronic) Elevated BP without diagnosis of hypertension (Chronic) Seasonal allergies (Chronic) Oxygen desaturation (Chronic) COVID-19 (Acute) Pneumonia due to COVID-19 virus (Acute) LLL pneumonia (Chronic) Medical History Rico esophagus Bronchiectasis Colon cancer (~07/2014) history of tubulovillous adenoma and colon carcinoma , removed 07/2014 COPD (chronic obstructive pulmonary disease) Eczema Elevated BP without diagnosis of hypertension GERD with esophagitis H/O malignant neoplasm of colon H/O: rheumatic fever Hypoxemia Iron deficiency anemia Muscular deconditioning Oxygen desaturation 11/26/2020: 75-88% on oxygen today in clinic Pulmonary fibrosis determined by high resolution computed tomography Seasonal allergies Tubulovillous adenoma Surgical History History of colonoscopy (08/11/16) abnormal History of repair of hiatal hernia (~04/2018) bleeding ulcers History of tonsillectomy and adenoidectomy (~1969) S/P Clara fundoplication (without gastrostomy tube) procedure Family History Father PNA (pneumonia) Prostate cancer Mother Kidney failure Grandfather Cancer Daughter Hemiplegic migraine Ovarian cyst Social History household members: spouse and family housing: house marital status: occupational status: retired 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 Has 2 children physical activity: none smoking status: Former smoker quit date: 05/04/98 pack-years: 20 alcohol intake frequency: holiday/special occasion only substance use type: does not use MEDS/ALLERGIES Home Medications and Allergies Home Medications Medication Instructions Recorded Confirmed Type cetirizine 10 mg capsule 10 mg PO QDAY 08/05/19 06/15/22 History diphenhydramine HCl 25 mg tablet 25 - 50 mg PO BID 12/05/21 06/15/22 History (Benadryl Allergy) dextromethorphan-guaifenesin 10 10 ml PO Q4HP PRN Cough #500 mL 01/04/22 06/15/22 Rx mg-100 mg/5 mL oral liquid (Diabetic Tussin DM) ipratropium 0.5 mg-albuterol 3 mg 3 ml inhalation Q4HRT PRN Wheezing 01/21/22 06/15/22 Rx (2.5 mg base)/3 mL nebulization #100 mL soln Electric mobility scooter #1 ea 03/19/22 06/15/22 Rx albuterol sulfate 90 mcg/actuation 2 puff inhalation Q4HP PRN 04/08/22 06/15/22 Rx aerosol inhaler Shortness Of Breath #8.5 grams umeclidinium 62.5 mcg-vilanterol 1 inh inhalation Q24H #60 ea 05/15/22 06/15/22 Rx 25 mcg/actuation powdr for inhalation (Anoro Ellipta) prednisone 10 mg tablet 10 mg PO QAM #30 tabs 06/12/22 06/15/22 Rx lorazepam 0.5 mg tablet (Ativan) 0.5 mg PO TID PRN anxiety #20 tabs 06/17/22 Rx prednisone 10 mg tablet 40 mg PO QDAY #1 tab 06/18/22 Rx omeprazole 40 mg capsule,delayed 40 mg PO QDAY #90 caps 06/25/22 Rx release Allergies Allergy/AdvReac Type Severity Reaction Status Date / Time naproxen AdvReac Intermediate purple Verified 06/14/22 23:31 spots on face EXAM Constitutional Vitals: Temp Pulse Resp BP Pulse Ox O2 Del Method 97.4 F 117 H 30 H 108/90 97 BiPAP 06/30/22 13:05 06/30/22 16:58 06/30/22 16:58 06/30/22 16:46 06/30/22 16:58 06/30/22 13:31 General appearance: moderate distress and thin Exam: cachectic Head Head exam: Present atraumatic, normal inspection and normocephalic Respiratory Respiratory exam: Present accessory muscle use, decreased breath sounds and respiratory distress Cardiovascular Cardiovascular exam: Present tachycardia Neurological Exam Neurological exam: Present CN II-XII intact and oriented X3 DATA Data Completed and Pending Labs: Labs from last 24 hours 02/27/23 02/27/23 02/27/23 13:21 13:21 13:21 WBC RBC Hgb Hct POC Hct 45.0 MCV MCH MCHC RDW Plt Count MPV Immature Gran % (Auto) Neut % (Auto) Lymph % (Auto) [place] % (Auto) Eos % (Auto) Baso % (Auto) Lymph # (Auto) [place] # (Auto) Eos # (Auto) Baso # (Auto) Immature Gran # Absolute Neutrophils D-Dimer POC VBG pH POC VBG pCO2 at Temp POC VBG pO2 POC VBG HCO3 POC VBG Total CO2 POC Venous O2 Sat POC VBG Base Excess VBG Lactic Acid POC Sodium 142 POC Potassium 4.1 POC Chloride 102 POC Total CO2 32.0 H POC BUN 15 POC Creatinine 0.7 POC Glucose 124 H POC WB Ioniz Calcium 1.21 NT-Pro-B Natriuret Pep Procalcitonin 0.05 POC Troponin I 0.04 06/30/22 06/30/22 06/30/22 13:21 13:21 13:21 WBC 27.6 H RBC 4.97 Hgb 13.4 L Hct 43.3 POC Hct MCV 87.1 MCH 27.0 MCHC 30.9 L RDW 13.5 Plt Count 334 MPV 10.8 Immature Gran % (Auto) 0.7 H Neut % (Auto) 91.8 H Lymph % (Auto) 2.9 L [place] % (Auto) 4.1 Eos % (Auto) 0.3 Baso % (Auto) 0.2 Lymph # (Auto) 0.81 L [place] # (Auto) 1.12 H Eos # (Auto) 0.08 Baso # (Auto) 0.05 Immature Gran # 0.18 H Absolute Neutrophils 25.35 H D-Dimer 0.38 POC VBG pH POC VBG pCO2 at Temp POC VBG pO2 POC VBG HCO3 POC VBG Total CO2 POC Venous O2 Sat POC VBG Base Excess VBG Lactic Acid POC Sodium POC Potassium POC Chloride POC Total CO2 POC BUN POC Creatinine POC Glucose POC WB Ioniz Calcium NT-Pro-B Natriuret Pep 1160.0 H Procalcitonin POC Troponin I 06/30/22 13:19 WBC RBC Hgb Hct POC Hct MCV MCH MCHC RDW Plt Count MPV Immature Gran % (Auto) Neut % (Auto) Lymph % (Auto) [place] % (Auto) Eos % (Auto) Baso % (Auto) Lymph # (Auto) [place] # (Auto) Eos # (Auto) Baso # (Auto) Immature Gran # Absolute Neutrophils D-Dimer POC VBG pH 7.40 POC VBG pCO2 at Temp 53.4 H POC VBG pO2 57 H POC VBG HCO3 33.2 H POC VBG Total CO2 35.0 H POC Venous O2 Sat 89.0 H POC VBG Base Excess 8.0 H* VBG Lactic Acid 1.8 POC Sodium POC Potassium POC Chloride POC Total CO2 POC BUN POC Creatinine POC Glucose POC WB Ioniz Calcium NT-Pro-B Natriuret Pep Procalcitonin POC Troponin I A/P Assessment and plan (1) Acute and chronic respiratory failure with hypoxia: Assessment and plan: - known severe end stage pulm fibrosis - acute on chronic hypoxic respiratory failure - solumedrol 40 BID - aggressive ABx - BiPAP, no intubation per patient Status: Acute Time Spent With Patient Time: Total time spent is greater than 50% in coordination of care (as documented) at patient's floor/unit and/or counseling patient:
[2022-06-30] MEDS ORDERED: VANCOMYCIN PER PHARMACY IV ONE (17:46)
[2022-06-30] MEDS ORDERED: ONDANSETRON 4 MG/2 ML VIAL IV PRN (17:46)
[2022-06-30] MEDS: DEXTROSE 5%-NS 1,000 ML IV SCH (17:51)
[2022-06-30] MEDS: IPRATROPIUM/ALBUTEROL 3 ML AMPUL.NEB NEB SCH ×2 (19:26→23:00)
[2022-06-30] MEDS: CEFEPIME 1 GM VIAL IV SCH (20:16)
[2022-06-30] MEDS: methylPREDNISolone SOD SUCC 40 MG/ML VIAL IV SCH (21:19)
[2022-06-30] MEDS: VANCOMYCIN 750 MG in 0.9 % SODIUM CHLORIDE 250 ML IV SCH (21:20)
[2022-06-30] MEDS ORDERED: LORazepam 0.5 MG TABLET PO PRN (22:48)
[2022-06-30] MEDS ORDERED: LORazepam 0.5 MG TABLET ONE (22:54)
[2022-06-30] MEDS: 0.9 % SODIUM CHLORIDE 10 ML SYRINGE IV SCH (23:53)
[2022-07-01] MEDS: IPRATROPIUM/ALBUTEROL 3 ML AMPUL.NEB NEB SCH ×5 (03:13→19:18)
[2022-07-01] MEDS: 0.9 % SODIUM CHLORIDE 10 ML SYRINGE IV SCH ×3 (05:59→22:45)
[2022-07-01] MEDS: CEFEPIME 1 GM VIAL IV SCH ×3 (06:00→22:31)
[2022-07-01] MEDS ORDERED: VANCOMYCIN PER PHARMACY IV SCH (06:45)
[2022-07-01 06:52] LABS: Basophils # (Auto) 0.03 K/mcL (0.00-0.30); Basophils % (Auto) 0.1 % (0.0-2.0); Eosinophils # (Auto) 0 K/mcL (0.00-0.70); Eosinophils % (Auto) 0 % (0.0-7.0); Hematocrit 39.3 % (40.1-51.0); Hemoglobin 12.1 g/dL (13.7-17.5); Lymphocytes # (Auto) 0.64 K/mcL (1.50-4.80); Lymphocytes % (Auto) 2.9 % (15.5-49.0); Mean Cell Volume 88.3 fL (80.0-100.0); Mean Corpuscular HGB Conc 30.8 g/dL (31.0-36.0); Mean Platelet Volume 11.1 fL (8.8-12.5); Monocytes # (Auto) 0.35 K/mcL (0.10-0.90); Monocytes % (Auto) 1.6 % (1.0-12.0); Neutrophils % (Auto) 94.9 % (38.0-78.0); Platelet Count 285 K/mcL (140-440); RBC 4.45 M/mcL (4.63-6.08); Red Cell Distribution Width 13.2 % (11.5-14.5)
[2022-07-01 07:07] LABS: Phosphorous 3.6 mg/dL (2.5-4.5)
[2022-07-01 07:08] LABS: Blood Urea Nitrogen 8 mg/dL (6-20); Calcium 8.5 mg/dL (8.6-10.4); Carbon Dioxide 30 mmol/L (22-30); Chloride 104 mmol/L (96-108); Glomerular Filtration Rate 110; Glucose 130 mg/dL (70-105)
[2022-07-01] MEDS: OMEPRAZOLE 20 MG CAPSULE PO SCH ×2 (07:17→16:07)
[2022-07-01] MEDS: DEXTROSE 5%-NS 1,000 ML IV SCH ×2 (07:17→22:20)
[2022-07-01] MEDS: LORazepam 0.5 MG TABLET PO PRN ×3 (07:25→21:32)
[2022-07-01] MEDS: ENOXAPARIN 40 MG/0.4 ML SYRINGE SQ SCH (08:07)
[2022-07-01] MEDS: methylPREDNISolone SOD SUCC 40 MG/ML VIAL IV SCH ×2 (08:07→20:37)
[2022-07-01] MEDS: VANCOMYCIN 750 MG in 0.9 % SODIUM CHLORIDE 250 ML IV SCH ×2 (08:53→20:37)
--- NOTE | 2022-07-01 14:48 | Internal Med Progress Note ---
SUBJECTIVE Subjective Patient information: Note initiated : 07/01/22 at 2:47 pm Service Date, if different from initiated Date: [] Patient: Ned Fortune 57 y/o M admitted on 06/30/22 for shortness of breath, O2 62% on 10L high flow.. Chief Complaint: [] Interval history: Mr. Fortune is a 57 year old M with severe end stage pulmonary fibrosis on 10L home O2. He presented with 1-2 days worsening SOB and lower CP and increased O2 demand. Workup in the ER notable for WBC 27, CXR with "severe diffuse intersitial fibrosis with possible pneumonia or aspiration superimposed in the upper lungs." He was markedly hypoxic and required BiPAP. Admission was requested. Jul 01, did well overnight with BiPAP. On HFNC this AM while eating breakfast. Will continue current plan of care. Constitutional Vitals: Vital Signs Temp Pulse Resp BP Pulse Ox O2 Del Method O2 Flow Rate 98.0 F 106 H 21 112/91 99 High Flow Nasal Cannula 14 07/01/22 12:00 07/01/22 14:01 07/01/22 14:01 07/01/22 14:01 07/01/22 14:01 07/01/22 14:00 07/01/22 14:00 Period Temp Pulse Resp BP Sys/Ashraf Pulse Ox O2 Del Method O2 Flow Rate Last 24 Hr 97.2 F-98.7 F 86-141 17-47 99-134/77-99 89-100 BiPAP-High Flow Nasal Cannula 11-15 Intake and Output 07/01/22 07/01/22 07/01/22 03:59 11:59 19:59 Intake Total 630 1510 0 Output Total 877 750 300 Balance -247 760 -300 Weight 50.848 kg Intake & Output: Intake & Output 07/01/22 07/01/22 07/01/22 03:59 11:59 19:59 Intake Total 630 1510 0 Output Total 877 750 300 Balance -247 760 -300 Weight 50.848 kg Intake: IV 250 1250 Dextrose 5%-Ns IV Solution 1, 1000 000 ml @ 75 mls/hr IV .[id number] [facility] Rx#:[id number] Vancomycin 750 mg In Sodium 250 250 Chloride 0.9% 250 ml @ 250 mls/ hr IV Q12H [facility] Rx#:[id number] Oral 380 260 0 Output: Void Amount 877 750 300 Other: Meal Breakfast Percent of Meal Consumed 100% Urine Appearance Clear Clear Clear Urine Color Yellow Yellow Yellow Urine Odor Normal Normal Head Head exam: Present atraumatic, normal inspection and normocephalic ENT ENT exam: Present mucous membranes moist Respiratory Respiratory exam: Present decreased breath sounds Additional comments: dry crackles Cardiovascular Cardiovascular exam: Present normal rate and rhythm GI/Abdominal GI/Abdominal exam: Present normal bowel sounds and soft; Absent distended Neurological Exam Neurological exam: Present CN II-XII intact and oriented X3 OBJ DATA Labs 07/01/22 05:15 07/01/22 05:15 Labs: Abnormal Lab Results 07/01/22 07/01/22 06/30/22 05:15 05:15 13:21 WBC 22.0 H RBC 4.45 L Hgb 12.1 L Hct 39.3 L MCHC 30.8 L Immature Gran % (Auto) Neut % (Auto) 94.9 H Lymph % (Auto) 2.9 L Lymph # (Auto) 0.64 L [place] # (Auto) Immature Gran # 0.12 H Absolute Neutrophils 20.85 H POC VBG pCO2 at Temp POC VBG pO2 POC VBG HCO3 POC VBG Total CO2 POC Venous O2 Sat POC VBG Base Excess POC Total CO2 32.0 H Anion Gap 7.0 L Creatinine 0.6 L Glucose 130 H POC Glucose 124 H Calcium 8.5 L NT-Pro-B Natriuret Pep 06/30/22 06/30/22 06/30/22 13:21 13:21 13:19 WBC 27.6 H RBC Hgb 13.4 L Hct MCHC 30.9 L Immature Gran % (Auto) 0.7 H Neut % (Auto) 91.8 H Lymph % (Auto) 2.9 L Lymph # (Auto) 0.81 L [place] # (Auto) 1.12 H Immature Gran # 0.18 H Absolute Neutrophils 25.35 H POC VBG pCO2 at Temp 53.4 H POC VBG pO2 57 H POC VBG HCO3 33.2 H POC VBG Total CO2 35.0 H POC Venous O2 Sat 89.0 H POC VBG Base Excess 8.0 H* POC Total CO2 Anion Gap Creatinine Glucose POC Glucose Calcium NT-Pro-B Natriuret Pep 1160.0 H Meds: Medications Acetaminophen (Acetaminophen 325 Mg Tablet) 650 mg PO Q4-6HP PRN; Protocol PRN Reason: Per Pain Protocol/Fever > 101 Albuterol/Ipratropium (Ipratropium/Albuterol 3 Ml Ampul.Neb) 3 ml NEB Q4HRT [facility] Last Admin: 07/01/22 12:04 Dose: 3 ml Cefepime HCl (Cefepime 1 Gm Vial) 1 gm IV Q8H [facility]; Protocol Last Admin: 07/01/22 13:09 Dose: 1 gm Enoxaparin Sodium (Enoxaparin 40 Mg/0.4 Ml Syringe) 40 mg SQ DAILY [facility] Last Admin: 07/01/22 08:07 Dose: 40 mg Dextrose/Sodium Chloride (Dextrose 5%-Ns Iv Solution) 1,000 mls @ 75 mls/hr IV .[id number] [facility] Last Admin: 07/01/22 07:17 Dose: 75 mls/hr Vancomycin HCl 750 mg/ Sodium (Chloride) 250 mls @ 250 mls/hr IV Q12H [facility] Last Infusion: 07/01/22 09:55 Dose: Infused Lorazepam (Lorazepam 0.5 Mg Tablet) 0.5 mg PO TIDP PRN PRN Reason: ANXIETY/SEDATION Last Admin: 07/01/22 14:08 Dose: 0.5 mg Methylprednisolone Sodium Succinate (Methylprednisolone Sod Succ 40 Mg/Ml Vial) 40 mg IV Q12 [facility] Last Admin: 07/01/22 08:07 Dose: 40 mg Omeprazole (Omeprazole 20 Mg Capsule) 40 mg PO BIDAC [facility] Last Admin: 07/01/22 07:17 Dose: 40 mg Ondansetron HCl (Ondansetron 4 Mg/2 Ml Vial) 4 mg IV Q4-6HP PRN; Protocol PRN Reason: Nausea And Vomiting Sodium Chloride (0.9 % Sodium Chloride 10 Ml Syringe) 10 ml IV Q8 [facility] Last Admin: 07/01/22 14:09 Dose: Not Given Vancomycin HCl (Vancomycin Per Pharmacy) 1 order IV UD [facility]; Protocol A/P Assessment and plan (1) Acute and chronic respiratory failure with hypoxia: Assessment and plan: - known severe end stage pulmonary fibrosis - acute on chronic hypoxic respiratory failure - continue ceftriaxone/azithromycin - solumedrol 40 BID - aggressive ABx - BiPAP PRN, no intubation per patient Status: Acute Time Spent With Patient Time: Total time spent is greater than 50% in coordination of care (as documented) at patient's floor/unit and/or counseling patient: QUALITY VTE Deep Vein Thrombosis/Pulmonary Embolism Present on Admission: No
[2022-07-01] MEDS: BENZONATATE 100 MG CAPSULE PO PRN (21:28)
[2022-07-01] MEDS: ACETAMINOPHEN 325 MG TABLET PO PRN (22:24)
[2022-07-02] MEDS: IPRATROPIUM/ALBUTEROL 3 ML AMPUL.NEB NEB SCH ×4 (01:00→11:12)
[2022-07-02] MEDS: 0.9 % SODIUM CHLORIDE 10 ML SYRINGE IV SCH ×3 (05:28→21:11)
[2022-07-02] MEDS: CEFEPIME 1 GM VIAL IV SCH ×3 (05:28→21:11)
[2022-07-02] MEDS: OMEPRAZOLE 20 MG CAPSULE PO SCH ×2 (07:23→17:21)
[2022-07-02] MEDS: LORazepam 0.5 MG TABLET PO PRN (07:55)
[2022-07-02] MEDS: ENOXAPARIN 40 MG/0.4 ML SYRINGE SQ SCH (09:01)
[2022-07-02] MEDS: methylPREDNISolone SOD SUCC 40 MG/ML VIAL IV SCH ×2 (09:02→20:15)
[2022-07-02] MEDS: VANCOMYCIN 1,000 MG in 0.9 % SODIUM CHLORIDE 250 ML IV SCH ×2 (09:39→20:15)
--- NOTE | 2022-07-02 10:47 | Internal Med Progress Note ---
SUBJECTIVE Subjective Patient information: Note initiated : 07/02/22 at 10:44 am Service Date, if different from initiated Date: [] Patient: Ned Fortune 57 y/o M admitted on 06/30/22 for shortness of breath, O2 62% on 10L high flow.. Chief Complaint: [] Interval history: Mr. Fortune is a 57 year old M with severe end stage pulmonary fibrosis on 10L home O2. He presented with 1-2 days worsening SOB and lower CP and increased O2 demand. Workup in the ER notable for WBC 27, CXR with "severe diffuse intersitial fibrosis with possible pneumonia or aspiration superimposed in the upper lungs." He was markedly hypoxic and required BiPAP. Admission was requested. Jul 01, did well overnight with BiPAP. On HFNC this AM while eating breakfast. Will continue current plan of care. Jul 02, did well overnight but rapidly desats with minimal exertion. Continue Abx, steroids, NBT. Constitutional Vitals: Vital Signs Temp Pulse Resp BP Pulse Ox O2 Del Method O2 Flow Rate 97.7 F 123 H 33 H 129/101 99 High Flow Nasal Cannula, Bubble Humidifier 13 07/02/22 08:00 07/02/22 10:00 07/02/22 10:00 07/02/22 10:00 07/02/22 10:00 07/02/22 10:00 07/02/22 10:00 Period Temp Pulse Resp BP Sys/Ashraf Pulse Ox O2 Del Method O2 Flow Rate Last 24 Hr 97.0 F-98.1 F 96-131 16-49 112-147/86-109 82-100 High Flow Nasal Cannula-High Flow Nasal Cannula, Bubble Humidifier 12-15 Intake and Output 07/01/22 07/02/22 07/02/22 19:59 03:59 11:59 Intake Total 1560 1250 150 Output Total 650 1374 250 Balance 910 -124 -100 Weight 50.848 kg 51.982 kg Intake & Output: Intake & Output 07/01/22 07/02/22 07/02/22 19:59 03:59 11:59 Intake Total 1560 1250 150 Output Total 650 1374 250 Balance 910 -124 -100 Weight 50.848 kg 51.982 kg Intake: IV 1250 Dextrose 5%-Ns IV Solution 1, 1000 000 ml @ 75 mls/hr IV .[id number] [facility] Rx#:[id number] Vancomycin 750 mg In Sodium 250 Chloride 0.9% 250 ml @ 250 mls/ hr IV Q12H [facility] Rx#:[id number] Oral 1560 0 150 Output: Void Amount 650 1374 250 Other: Meal Dinner Breakfast Percent of Meal Consumed 100% 100% Feeding Ability Assist with Tray Set Up Urine Appearance Clear Clear Urine Color Yellow Bright Yellow Urine Odor Normal Normal Stool Size Small Stool Color Brown # of times incontinent of 1 Bowels General appearance: no acute distress Exam: cachectic Head Head exam: Present atraumatic and normal inspection ENT ENT exam: Present mucous membranes moist Respiratory Respiratory exam: Present decreased breath sounds and wheezes Additional comments: dry crackles Cardiovascular Cardiovascular exam: Present normal rate and rhythm GI/Abdominal GI/Abdominal exam: Present normal bowel sounds and soft Neurological Exam Neurological exam: Present CN II-XII intact and oriented X3 OBJ DATA Labs 07/01/22 05:15 07/01/22 05:15 Labs: Abnormal Lab Results 07/01/22 07/01/22 06/30/22 05:15 05:15 13:21 WBC 22.0 H RBC 4.45 L Hgb 12.1 L Hct 39.3 L MCHC 30.8 L Immature Gran % (Auto) Neut % (Auto) 94.9 H Lymph % (Auto) 2.9 L Lymph # (Auto) 0.64 L [place] # (Auto) Immature Gran # 0.12 H Absolute Neutrophils 20.85 H POC VBG pCO2 at Temp POC VBG pO2 POC VBG HCO3 POC VBG Total CO2 POC Venous O2 Sat POC VBG Base Excess POC Total CO2 32.0 H Anion Gap 7.0 L Creatinine 0.6 L Glucose 130 H POC Glucose 124 H Calcium 8.5 L NT-Pro-B Natriuret Pep 06/30/22 06/30/22 06/30/22 13:21 13:21 13:19 WBC 27.6 H RBC Hgb 13.4 L Hct MCHC 30.9 L Immature Gran % (Auto) 0.7 H Neut % (Auto) 91.8 H Lymph % (Auto) 2.9 L Lymph # (Auto) 0.81 L [place] # (Auto) 1.12 H Immature Gran # 0.18 H Absolute Neutrophils 25.35 H POC VBG pCO2 at Temp 53.4 H POC VBG pO2 57 H POC VBG HCO3 33.2 H POC VBG Total CO2 35.0 H POC Venous O2 Sat 89.0 H POC VBG Base Excess 8.0 H* POC Total CO2 Anion Gap Creatinine Glucose POC Glucose Calcium NT-Pro-B Natriuret Pep 1160.0 H Meds: Medications Acetaminophen (Acetaminophen 325 Mg Tablet) 650 mg PO Q4-6HP PRN; Protocol PRN Reason: Per Pain Protocol/Fever > 101 Last Admin: 07/01/22 22:24 Dose: 650 mg Albuterol/Ipratropium (Ipratropium/Albuterol 3 Ml Ampul.Neb) 3 ml NEB Q4HRT [facility] Last Admin: 07/02/22 07:16 Dose: 3 ml Benzonatate (Benzonatate 100 Mg Capsule) 200 mg PO TIDP PRN PRN Reason: Cough Last Admin: 07/01/22 21:28 Dose: 200 mg Cefepime HCl (Cefepime 1 Gm Vial) 1 gm IV Q8H [facility]; Protocol Last Admin: 07/02/22 05:28 Dose: 1 gm Enoxaparin Sodium (Enoxaparin 40 Mg/0.4 Ml Syringe) 40 mg SQ DAILY [facility] Last Admin: 07/02/22 09:01 Dose: 40 mg Dextrose/Sodium Chloride (Dextrose 5%-Ns Iv Solution) 1,000 mls @ 75 mls/hr IV .[id number] [facility] Last Admin: 07/01/22 22:20 Dose: 75 mls/hr Vancomycin HCl 1,000 mg/ (Sodium Chloride) 250 mls @ 250 mls/hr IV Q12H [facility] Last Admin: 07/02/22 09:39 Dose: 250 mls/hr Lorazepam (Lorazepam 0.5 Mg Tablet) 0.5 mg PO TIDP PRN PRN Reason: ANXIETY/SEDATION Last Admin: 07/02/22 07:55 Dose: 0.5 mg Methylprednisolone Sodium Succinate (Methylprednisolone Sod Succ 40 Mg/Ml Vial) 40 mg IV Q12 [facility] Last Admin: 07/02/22 09:02 Dose: 40 mg Omeprazole (Omeprazole 20 Mg Capsule) 40 mg PO BIDAC [facility] Last Admin: 07/02/22 07:23 Dose: 40 mg Ondansetron HCl (Ondansetron 4 Mg/2 Ml Vial) 4 mg IV Q4-6HP PRN; Protocol PRN Reason: Nausea And Vomiting Sodium Chloride (0.9 % Sodium Chloride 10 Ml Syringe) 10 ml IV Q8 [facility] Last Admin: 07/02/22 05:28 Dose: 10 ml Vancomycin HCl (Vancomycin Per Pharmacy) 1 order IV UD [facility]; Protocol A/P Assessment and plan (1) Acute and chronic respiratory failure with hypoxia: Assessment and plan: - known severe end stage pulmonary fibrosis - acute on chronic hypoxic respiratory failure - continue ceftriaxone/azithromycin - solumedrol 40 BID - aggressive ABx - BiPAP PRN, no intubation per patient Status: Acute Time Spent With Patient Time: Total time spent is greater than 50% in coordination of care (as documented) at patient's floor/unit and/or counseling patient: QUALITY VTE Deep Vein Thrombosis/Pulmonary Embolism Present on Admission: No
[2022-07-02] MEDS: VANCOMYCIN 750 MG in 0.9 % SODIUM CHLORIDE 250 ML IV SCH (11:17)
[2022-07-02] MEDS: DEXTROSE 5%-NS 1,000 ML IV SCH (12:48)
[2022-07-02] MEDS ORDERED: LEVALBUTEROL 1.25 MG/3 ML AMPUL.NEB NEB PRN (14:02)
--- NOTE | 2022-07-02 14:05 | Internal Med Progress Note ---
SUBJECTIVE Subjective Patient information: Note initiated : 07/02/22 at 2:00 pm Service Date, if different from initiated Date: [] Patient: Ned Fortune 57 y/o M admitted on 06/30/22 for shortness of breath, O2 62% on 10L high flow.. Chief Complaint: [] Interval history: Mr. Fortune is a 57 year old M with severe end stage pulmonary fibrosis on 10L home O2. He presented with 1-2 days worsening SOB and lower CP and increased O2 demand. Workup in the ER notable for WBC 27, CXR with "severe diffuse intersitial fibrosis with possible pneumonia or aspiration superimposed in the upper lungs." He was markedly hypoxic and required BiPAP. Admission was requested. Jul 01, did well overnight with BiPAP. On HFNC this AM while eating breakfast. Will continue current plan of care. Jul 02, did well overnight but rapidly desats with minimal exertion. Continue Abx, steroids, NBT. 07/03 Review of Systems: denies headache/fever/chills/nausea/vomiting/chest or abdominal pain/cough/dyspnea/diarrhea. Otherwise see above. PHYSICAL EXAM: General: Alert, Awake, No acute Distress Eyes/N/T: EOMI, no scleral icterus, Head/Neck: neck supple, full ROM CV: Tachycardic but regular, No murmurs, Pulm: subtle fine Rales b/l, no rhonchi or wheezing Abd: soft, nontender, +BS x4 Ext: no clubbing/cyanosis/edema Neuro: Alert, no focal deficits, moves all extremities, Skin: warm/dry, normal color Constitutional Vitals: Vital Signs Temp Pulse Resp BP Pulse Ox O2 Del Method O2 Flow Rate 97.9 F 115 H 57 H 141/97 94 Heated High Flow Nasal Cannula 30 07/02/22 12:00 07/02/22 13:00 07/02/22 13:00 07/02/22 13:00 07/02/22 13:00 07/02/22 13:00 07/02/22 13:00 Period Temp Pulse Resp BP Sys/Ashraf Pulse Ox O2 Del Method O2 Flow Rate Last 24 Hr 97.0 F-98.1 F 96-131 16-57 112-177/86-111 77-100 Heated High Flow Nasal Ca-High Flow Nasal Cannula, Bubble Humidifier 12-60 Intake and Output 07/02/22 07/02/22 07/02/22 03:59 11:59 19:59 Intake Total 0760 260 5710 Output Total 1374 550 Balance -734 914 3514 Weight 51.982 kg Intake & Output: Intake & Output 07/02/22 07/02/22 07/02/22 03:59 11:59 19:59 Intake Total 9006 287 6299 Output Total 1374 550 Balance -229 931 1320 Weight 51.982 kg Intake: IV 7923 132 3285 Dextrose 5%-Ns IV Solution 1, 1000 1000 000 ml @ 75 mls/hr IV .[id number] [facility] Rx#:[id number] Vancomycin 1,000 mg In Sodium 250 250 Chloride 0.9% 250 ml @ 250 mls/ hr IV Q12H [facility] Rx#:[id number] Oral 0 570 Output: Void Amount 1374 550 Other: Meal Breakfast Percent of Meal Consumed 100% Urine Appearance Clear Clear Urine Color Bright Yellow Yellow Urine Odor Normal Stool Size Small Stool Color Brown # of times incontinent of 1 Bowels OBJ DATA Labs 07/01/22 05:15 07/01/22 05:15 Labs: Abnormal Lab Results 07/01/22 07/01/22 06/30/22 05:15 05:15 13:21 WBC 22.0 H RBC 4.45 L Hgb 12.1 L Hct 39.3 L MCHC 30.8 L Immature Gran % (Auto) Neut % (Auto) 94.9 H Lymph % (Auto) 2.9 L Lymph # (Auto) 0.64 L [place] # (Auto) Immature Gran # 0.12 H Absolute Neutrophils 20.85 H POC VBG pCO2 at Temp POC VBG pO2 POC VBG HCO3 POC VBG Total CO2 POC Venous O2 Sat POC VBG Base Excess POC Total CO2 32.0 H Anion Gap 7.0 L Creatinine 0.6 L Glucose 130 H POC Glucose 124 H Calcium 8.5 L NT-Pro-B Natriuret Pep 06/30/22 06/30/22 06/30/22 13:21 13:21 13:19 WBC 27.6 H RBC Hgb 13.4 L Hct MCHC 30.9 L Immature Gran % (Auto) 0.7 H Neut % (Auto) 91.8 H Lymph % (Auto) 2.9 L Lymph # (Auto) 0.81 L [place] # (Auto) 1.12 H Immature Gran # 0.18 H Absolute Neutrophils 25.35 H POC VBG pCO2 at Temp 53.4 H POC VBG pO2 57 H POC VBG HCO3 33.2 H POC VBG Total CO2 35.0 H POC Venous O2 Sat 89.0 H POC VBG Base Excess 8.0 H* POC Total CO2 Anion Gap Creatinine Glucose POC Glucose Calcium NT-Pro-B Natriuret Pep 1160.0 H Meds: Medications Acetaminophen (Acetaminophen 325 Mg Tablet) 650 mg PO Q4-6HP PRN; Protocol PRN Reason: Per Pain Protocol/Fever > 101 Last Admin: 07/01/22 22:24 Dose: 650 mg Albuterol/Ipratropium (Ipratropium/Albuterol 3 Ml Ampul.Neb) 3 ml NEB Q4HRT [facility] Last Admin: 07/02/22 11:12 Dose: 3 ml Benzonatate (Benzonatate 100 Mg Capsule) 200 mg PO TIDP PRN PRN Reason: Cough Last Admin: 07/01/22 21:28 Dose: 200 mg Cefepime HCl (Cefepime 1 Gm Vial) 1 gm IV Q8H [facility]; Protocol Last Admin: 07/02/22 05:28 Dose: 1 gm Enoxaparin Sodium (Enoxaparin 40 Mg/0.4 Ml Syringe) 40 mg SQ DAILY [facility] Last Admin: 07/02/22 09:01 Dose: 40 mg Dextrose/Sodium Chloride (Dextrose 5%-Ns Iv Solution) 1,000 mls @ 75 mls/hr IV .[id number] [facility] Last Admin: 07/02/22 12:48 Dose: 75 mls/hr Vancomycin HCl 1,000 mg/ (Sodium Chloride) 250 mls @ 250 mls/hr IV Q12H [facility] Last Infusion: 07/02/22 10:51 Dose: Infused Lorazepam (Lorazepam 1 Mg Tablet) 1 mg PO TIDP PRN PRN Reason: ANXIETY/SEDATION Methylprednisolone Sodium Succinate (Methylprednisolone Sod Succ 40 Mg/Ml Vial) 40 mg IV Q12 [facility] Last Admin: 07/02/22 09:02 Dose: 40 mg Omeprazole (Omeprazole 20 Mg Capsule) 40 mg PO BIDAC [facility] Last Admin: 07/02/22 07:23 Dose: 40 mg Ondansetron HCl (Ondansetron 4 Mg/2 Ml Vial) 4 mg IV Q4-6HP PRN; Protocol PRN Reason: Nausea And Vomiting Sodium Chloride (0.9 % Sodium Chloride 10 Ml Syringe) 10 ml IV Q8 [facility] Last Admin: 07/02/22 05:28 Dose: 10 ml Vancomycin HCl (Vancomycin Per Pharmacy) 1 order IV UD [facility]; Protocol A/P Narrative A/P Narrative: A: #Acute on chronic hypoxic respiratory failure: likely 2/2 pulmonary fibrosis -Flu/RSV/Covid neg -on vapotherm, prn bipap #Pulmonary fibrosis exacerbation: #COPD / Severe chronic pulmonary fibrosis / Bronchiectasis (8-10L O2@home): #Chronic leukocytosis #GERD / Rico's esophagus: #h/o colon cancer #Malnourishment #Anemia, chronic: #Anxiety: prn ativan #Guarded prognosis given severe pulmonary fibrosis and multiple hospitalizations Plan -Solumedrol (wean) -Oxygen supplementation wean as able -Scheduled xopenex/ipratropium and prn -abx -monitor/trend electrolyte abnormalities -f/u chest imaging if worsens -PT and OT. -f/u closely with pulmonology -ppx: Lovenox / ppi Code status: DNR/DNI Time Spent With Patient Time: Total time spent is greater than 50% in coordination of care (as documented) at patient's floor/unit and/or counseling patient: QUALITY VTE Deep Vein Thrombosis/Pulmonary Embolism Present on Admission: No
[2022-07-02] MEDS: LORazepam 1 MG TABLET PO PRN ×3 (14:10→23:32)
[2022-07-02] MEDS: LEVALBUTEROL 1.25 MG/3 ML AMPUL.NEB NEB SCH (19:07)
[2022-07-02] MEDS: IPRATROPIUM 2.5 ML AMPUL.NEB NEB SCH (19:07)
[2022-07-02] MEDS: BENZONATATE 100 MG CAPSULE PO PRN (21:09)
[2022-07-02] MEDS: ACETAMINOPHEN 325 MG TABLET PO PRN (21:09)
[2022-07-03] MEDS: IPRATROPIUM 2.5 ML AMPUL.NEB NEB SCH ×4 (01:26→18:39)
[2022-07-03] MEDS: LEVALBUTEROL 1.25 MG/3 ML AMPUL.NEB NEB SCH ×4 (01:27→18:40)
[2022-07-03] MEDS: CEFEPIME 1 GM VIAL IV SCH ×3 (05:09→20:51)
[2022-07-03] MEDS: 0.9 % SODIUM CHLORIDE 10 ML SYRINGE IV SCH ×3 (05:09→20:53)
[2022-07-03 06:28] LABS: Basophils # (Auto) 0.03 K/mcL (0.00-0.30); Basophils % (Auto) 0.2 % (0.0-2.0); Eosinophils # (Auto) 0.01 K/mcL (0.00-0.70); Eosinophils % (Auto) 0.1 % (0.0-7.0); Hematocrit 39.4 % (40.1-51.0); Lymphocytes # (Auto) 0.97 K/mcL (1.50-4.80); Lymphocytes % (Auto) 4.9 % (15.5-49.0); Mean Cell Volume 88.1 fL (80.0-100.0); Mean Corpuscular HGB Conc 30.5 g/dL (31.0-36.0); Mean Platelet Volume 11.6 fL (8.8-12.5); Monocytes # (Auto) 0.66 K/mcL (0.10-0.90); Monocytes % (Auto) 3.4 % (1.0-12.0); Neutrophils % (Auto) 90.8 % (38.0-78.0); Platelet Count 271 K/mcL (140-440); RBC 4.47 M/mcL (4.63-6.08); Red Cell Distribution Width 13.3 % (11.5-14.5); WBC 19.6 K/mcL (4.5-11.0)
[2022-07-03 06:47] LABS: ALT/SGPT 23 U/L (<40); AST/SGOT 19 U/L (<40); Albumin 3.1 gm/dL (3.2-5.2); Alkaline Phosphatase 85 U/L (39-117); Bilirubin,Direct < 0.2 mg/dL (0-0.3); Bilirubin,Total 0.3 mg/dL (0.1-1.0); Blood Urea Nitrogen 11 mg/dL (6-20); Calcium 8.9 mg/dL (8.6-10.4); Carbon Dioxide 30 mmol/L (22-30); Chloride 99 mmol/L (96-108); Glomerular Filtration Rate 103; Glucose 109 mg/dL (70-105); Lactate Dehydrogenase 165 U/L (135-225); Phosphorous 4.4 mg/dL (2.5-4.5); Triglycerides 92 mg/dL (<150); Uric Acid 3.4 mg/dL (2.5-8.0)
[2022-07-03] MEDS: OMEPRAZOLE 20 MG CAPSULE PO SCH ×2 (07:59→16:50)
--- NOTE | 2022-07-03 08:01 | Internal Med Progress Note ---
SUBJECTIVE Subjective Patient information: Note initiated : 07/03/22 at 7:58 am Service Date, if different from initiated Date: [] Patient: Ned Fortune 57 y/o M admitted on 06/30/22 for shortness of breath, O2 62% on 10L high flow.. Chief Complaint: [] Interval history: Mr. Fortune is a 57 year old M with severe end stage pulmonary fibrosis on 10L home O2. He presented with 1-2 days worsening SOB and lower CP and increased O2 demand. Workup in the ER notable for WBC 27, CXR with "severe diffuse intersitial fibrosis with possible pneumonia or aspiration superimposed in the upper lungs." He was markedly hypoxic and required BiPAP. Admission was requested. Jul 01, did well overnight with BiPAP. On HFNC this AM while eating breakfast. Will continue current plan of care. Jul 02, did well overnight but rapidly desats with minimal exertion. Continue Abx, steroids, NBT. 07/03 Patient found earlier this morning with his his nasal cannula in his hand, patient poorly responsive at that time. He had high flow and placed back on with good saturations with improvement in mentation. Patient says he feels little better this morning and feels his breathing is better. Patient has mild chronic cough. Patient trying to hold out till family wedding in September. Refusing hospice until that time. He is a DNR/DNI and otherwise understands his limited life span. Review of Systems: denies headache/fever/chills/nausea/vomiting/chest or abdominal pain/diarrhea. Otherwise see above. PHYSICAL EXAM: General: Alert, Awake, No acute Distress Eyes/N/T: EOMI, no scleral icterus, Head/Neck: neck supple, full ROM CV: Tachycardic but regular, No murmurs, Pulm: subtle fine Rales b/l, no rhonchi or wheezing Abd: soft, nontender, +BS x4 Ext: no clubbing/cyanosis/edema Neuro: Alert, no focal deficits, moves all extremities, Skin: warm/dry, normal color Constitutional Vitals: Vital Signs Temp Pulse Resp BP Pulse Ox O2 Del Method O2 Flow Rate 97.7 F 92 H 17 122/88 100 Heated High Flow Nasal Cannula 30 07/03/22 04:00 07/03/22 06:00 07/03/22 06:00 07/03/22 06:00 07/03/22 06:00 07/03/22 06:00 07/03/22 06:00 Period Temp Pulse Resp BP Sys/Ashraf Pulse Ox O2 Del Method O2 Flow Rate Last 24 Hr 97.2 F-97.9 F 43-141 17-57 95-178/77-120 77-100 Heated High Flow Nasal Ca-High Flow Nasal Cannula, Bubble Humidifier 13-60 Intake and Output 07/02/22 07/03/22 07/03/22 19:59 03:59 11:59 Intake Total 1540 1435 480 Output Total 1150 1025 Balance 390 410 480 Weight 50.394 kg Intake & Output: Intake & Output 07/02/22 07/03/22 07/03/22 19:59 03:59 11:59 Intake Total 1540 1435 480 Output Total 1150 1025 Balance 390 410 480 Weight 50.394 kg Intake: IV 1000 955 Dextrose 5%-Ns IV Solution 1, 1000 705 000 ml @ 75 mls/hr IV .[id number] [facility] Rx#:[id number] Vancomycin 1,000 mg In Sodium 250 Chloride 0.9% 250 ml @ 250 mls/ hr IV Q12H [facility] Rx#:[id number] Oral 540 480 480 Output: Void Amount 1150 1025 Other: Meal Dinner Percent of Meal Consumed 75% Feeding Ability Independent Nourishment/Supplement name sandwich and juice Urine Appearance Clear Urine Color Light Antonette Urine Odor Normal OBJ DATA Labs 07/03/22 05:11 07/03/22 05:11 Labs: Abnormal Lab Results 07/03/22 07/03/22 07/01/22 05:11 05:11 05:15 WBC 19.6 H RBC 4.47 L Hgb 12.0 L Hct 39.4 L MCHC 30.5 L Immature Gran % (Auto) 0.6 H Neut % (Auto) 90.8 H Lymph % (Auto) 4.9 L Lymph # (Auto) 0.97 L [place] # (Auto) Immature Gran # 0.11 H Absolute Neutrophils 17.84 H POC VBG pCO2 at Temp POC VBG pO2 POC VBG HCO3 POC VBG Total CO2 POC Venous O2 Sat POC VBG Base Excess POC Total CO2 Anion Gap 7.0 L Creatinine 0.6 L Glucose 109 H 130 H POC Glucose Calcium 8.5 L NT-Pro-B Natriuret Pep Albumin 3.1 L 07/01/22 06/30/22 06/30/22 05:15 13:21 13:21 WBC 22.0 H RBC 4.45 L Hgb 12.1 L Hct 39.3 L MCHC 30.8 L Immature Gran % (Auto) Neut % (Auto) 94.9 H Lymph % (Auto) 2.9 L Lymph # (Auto) 0.64 L [place] # (Auto) Immature Gran # 0.12 H Absolute Neutrophils 20.85 H POC VBG pCO2 at Temp POC VBG pO2 POC VBG HCO3 POC VBG Total CO2 POC Venous O2 Sat POC VBG Base Excess POC Total CO2 32.0 H Anion Gap Creatinine Glucose POC Glucose 124 H Calcium NT-Pro-B Natriuret Pep 1160.0 H Albumin 06/30/22 06/30/22 13:21 13:19 WBC 27.6 H RBC Hgb 13.4 L Hct MCHC 30.9 L Immature Gran % (Auto) 0.7 H Neut % (Auto) 91.8 H Lymph % (Auto) 2.9 L Lymph # (Auto) 0.81 L [place] # (Auto) 1.12 H Immature Gran # 0.18 H Absolute Neutrophils 25.35 H POC VBG pCO2 at Temp 53.4 H POC VBG pO2 57 H POC VBG HCO3 33.2 H POC VBG Total CO2 35.0 H POC Venous O2 Sat 89.0 H POC VBG Base Excess 8.0 H* POC Total CO2 Anion Gap Creatinine Glucose POC Glucose Calcium NT-Pro-B Natriuret Pep Albumin Meds: Medications Acetaminophen (Acetaminophen 325 Mg Tablet) 650 mg PO Q4-6HP PRN; Protocol PRN Reason: Per Pain Protocol/Fever > 101 Last Admin: 07/02/22 21:09 Dose: 650 mg Benzonatate (Benzonatate 100 Mg Capsule) 200 mg PO TIDP PRN PRN Reason: Cough Last Admin: 07/02/22 21:09 Dose: 200 mg Cefepime HCl (Cefepime 1 Gm Vial) 1 gm IV Q8H [facility]; Protocol Last Admin: 07/03/22 05:09 Dose: 1 gm Enoxaparin Sodium (Enoxaparin 40 Mg/0.4 Ml Syringe) 40 mg SQ DAILY [facility] Last Admin: 07/02/22 09:01 Dose: 40 mg Vancomycin HCl 1,000 mg/ (Sodium Chloride) 250 mls @ 250 mls/hr IV Q12H [facility] Last Infusion: 07/02/22 21:15 Dose: Infused Ipratropium [place] (Ipratropium 2.5 Ml Ampul.Neb) 2.5 ml NEB Q6HRT [facility] Last Admin: 07/03/22 01:26 Dose: 2.5 ml Levalbuterol HCl (Levalbuterol 1.25 Mg/3 Ml Ampul.Neb) 1.25 mg NEB Q6HRT [facility] Last Admin: 07/03/22 01:27 Dose: 1.25 mg Levalbuterol HCl (Levalbuterol 1.25 Mg/3 Ml Ampul.Neb) 1.25 mg NEB Q4HP PRN PRN Reason: Shortness Of Breath Lorazepam (Lorazepam 1 Mg Tablet) 1 mg PO TIDP PRN PRN Reason: ANXIETY/SEDATION Last Admin: 07/02/22 23:32 Dose: 1 mg Methylprednisolone Sodium Succinate (Methylprednisolone Sod Succ 40 Mg/Ml Vial) 40 mg IV Q12 [facility] Last Admin: 07/02/22 20:15 Dose: 40 mg Omeprazole (Omeprazole 20 Mg Capsule) 40 mg PO BIDAC [facility] Last Admin: 07/02/22 17:21 Dose: 40 mg Ondansetron HCl (Ondansetron 4 Mg/2 Ml Vial) 4 mg IV Q4-6HP PRN; Protocol PRN Reason: Nausea And Vomiting Sodium Chloride (0.9 % Sodium Chloride 10 Ml Syringe) 10 ml IV Q8 [facility] Last Admin: 07/03/22 05:09 Dose: 10 ml Vancomycin HCl (Vancomycin Per Pharmacy) 1 order IV UD [facility]; Protocol A/P Narrative A/P Narrative: A: #Acute on chronic hypoxic respiratory failure: likely 2/2 pulmonary fibrosis -Flu/RSV/Covid neg -on vapotherm 30lpm/ %, prn bipap #possible PNA: #Pulmonary fibrosis exacerbation: #COPD / Severe chronic pulmonary fibrosis / Bronchiectasis (8-10L O2@home): #Chronic leukocytosis: #GERD / Rico's esophagus: #h/o colon cancer #Malnourishment #Anemia, chronic: #Anxiety: prn ativan #Guarded prognosis given severe pulmonary fibrosis and multiple hospitalizations Plan -Solumedrol (wean) -Oxygen supplementation wean as able -Scheduled xopenex/ipratropium and prn -abx -monitor/trend electrolyte abnormalities -f/u chest imaging if worsens -PT and OT. -f/u closely with pulmonology -ppx: Lovenox / ppi Code status: DNR/DNI Time Spent With Patient Time: Total time spent is greater than 50% in coordination of care (as documented) at patient's floor/unit and/or counseling patient: Subsequent: Total time with patient: 50 - 65 Minutes QUALITY VTE Deep Vein Thrombosis/Pulmonary Embolism Present on Admission: No
[2022-07-03] MEDS: methylPREDNISolone SOD SUCC 40 MG/ML VIAL IV SCH ×2 (09:18→20:51)
[2022-07-03] MEDS: ENOXAPARIN 40 MG/0.4 ML SYRINGE SQ SCH (09:18)
[2022-07-03] MEDS: LORazepam 1 MG TABLET PO PRN ×2 (09:18→20:52)
[2022-07-03] MEDS: VANCOMYCIN 1,000 MG in 0.9 % SODIUM CHLORIDE 250 ML IV SCH ×2 (09:32→20:53)
[2022-07-03] MEDS ORDERED: FUROSEMIDE 40 MG/4 ML VIAL IV ONE ×2 (15:53→16:31)
[2022-07-03] MEDS: ACETAMINOPHEN 325 MG TABLET PO PRN (20:52)
[2022-07-03] MEDS: BENZONATATE 100 MG CAPSULE PO PRN (20:52)
[2022-07-04] MEDS: IPRATROPIUM 2.5 ML AMPUL.NEB NEB SCH ×4 (00:15→18:01)
[2022-07-04] MEDS: LEVALBUTEROL 1.25 MG/3 ML AMPUL.NEB NEB SCH ×4 (00:18→18:02)
[2022-07-04] MEDS: CEFEPIME 1 GM VIAL IV SCH ×3 (05:28→21:46)
[2022-07-04] MEDS: 0.9 % SODIUM CHLORIDE 10 ML SYRINGE IV SCH ×3 (05:28→21:47)
--- NOTE | 2022-07-04 08:05 | Internal Med Progress Note ---
SUBJECTIVE Subjective Patient information: Note initiated : 07/04/22 at 8:00 am Service Date, if different from initiated Date: [] Patient: Ned Fortune a 57 y/o M admitted on 06/30/22 for shortness of breath, O2 62% on 10L high flow.. Chief Complaint: [] Interval history: Mr. Fortune is a 57 year old M with severe end stage pulmonary fibrosis on 10L home O2. He presented with 1-2 days worsening SOB and lower CP and increased O2 demand. Workup in the ER notable for WBC 27, CXR with "severe diffuse intersitial fibrosis with possible pneumonia or aspiration superimposed in the upper lungs." He was markedly hypoxic and required BiPAP. Admission was requested. Jul 01, did well overnight with BiPAP. On HFNC this AM while eating breakfast. Will continue current plan of care. Jul 02, did well overnight but rapidly desats with minimal exertion. Continue Abx, steroids, NBT. 07/03 Patient found earlier this morning with his his nasal cannula in his hand, patient poorly responsive at that time. He had high flow and placed back on with good saturations with improvement in mentation. Patient says he feels little better this morning and feels his breathing is better. Patient has mild chronic cough. Patient trying to hold out till family wedding in September. Refusing hospice until that time. He is a DNR/DNI and otherwise understands his limited life span. 3/ Patient feels about the same as yesterday. Has chronic cough and shortness of breath. Repeat chest x-ray today. Patient on 35 L/min on Vapotherm and FiO2 yesterday was 80% down to 60% today. Nurse had a discussion with yesterday about his extremely guarded prognosis. understood. Review of Systems: denies headache/fever/chills/nausea/vomiting/chest or abdominal pain/diarrhea. Otherwise see above. PHYSICAL EXAM: General: Alert, Awake, No acute Distress Eyes/N/T: EOMI, no scleral icterus, Head/Neck: neck supple, full ROM CV: Tachycardic but regular, No murmurs, Pulm: subtle fine Rales b/l, no rhonchi or wheezing Abd: soft, nontender, +BS x4 Ext: no clubbing/cyanosis/edema Neuro: Alert, no focal deficits, moves all extremities, Skin: warm/dry, normal color Constitutional Vitals: Vital Signs Temp Pulse Resp BP Pulse Ox O2 Del Method O2 Flow Rate 98.6 F 95 H 15 113/83 98 Heated High Flow Nasal Cannula 30 07/04/22 00:00 07/04/22 06:00 07/04/22 06:00 07/04/22 06:00 07/04/22 06:00 07/04/22 06:00 07/04/22 06:00 Period Temp Pulse Resp BP Sys/Ashraf Pulse Ox O2 Del Method O2 Flow Rate Last 24 Hr 98.2 F-98.6 F 95-131 15-41 95-146/69-112 80-100 Heated High Flow Nasal Ca-Heated High Flow Nasal Ca 30-40 Intake and Output 07/03/22 07/04/22 07/04/22 19:59 03:59 11:59 Intake Total 870 730 Output Total 1575 900 200 Balance -705 -170 -200 Weight 48.716 kg Intake & Output: Intake & Output 07/03/22 07/04/22 07/04/22 19:59 03:59 11:59 Intake Total 870 730 Output Total 1575 900 200 Balance -705 -170 -200 Weight 48.716 kg Intake: IV 250 Vancomycin 1,000 mg In Sodium 250 Chloride 0.9% 250 ml @ 250 mls/ hr IV Q12H [facility] Rx#:[id number] Oral 870 480 Output: Urine Catheter Amount 225 Void Amount 1575 675 200 Other: Meal Dinner Percent of Meal Consumed 100% Feeding Ability Assist with Tray Set Up Urine Appearance Clear Clear Clear Urine Color Yellow Yellow Light Antonette Light Antonette Urine Odor Normal Normal Stool Size Large Stool Color Brown Stool Consistency Soft Formed Cylindrical OBJ DATA Labs 07/03/22 05:11 07/03/22 05:11 Labs: Abnormal Lab Results 07/03/22 07/03/22 05:11 05:11 WBC 19.6 H RBC 4.47 L Hgb 12.0 L Hct 39.4 L MCHC 30.5 L Immature Gran % (Auto) 0.6 H Neut % (Auto) 90.8 H Lymph % (Auto) 4.9 L Lymph # (Auto) 0.97 L Immature Gran # 0.11 H Absolute Neutrophils 17.84 H Glucose 109 H Albumin 3.1 L Meds: Medications Acetaminophen (Acetaminophen 325 Mg Tablet) 650 mg PO Q4-6HP PRN; Protocol PRN Reason: Per Pain Protocol/Fever > 101 Last Admin: 07/03/22 20:52 Dose: 650 mg Benzonatate (Benzonatate 100 Mg Capsule) 200 mg PO TIDP PRN PRN Reason: Cough Last Admin: 07/03/22 20:52 Dose: 200 mg Cefepime HCl (Cefepime 1 Gm Vial) 1 gm IV Q8H [facility]; Protocol Last Admin: 07/04/22 05:28 Dose: 1 gm Enoxaparin Sodium (Enoxaparin 40 Mg/0.4 Ml Syringe) 40 mg SQ DAILY [facility] Last Admin: 07/03/22 09:18 Dose: 40 mg Vancomycin HCl 1,000 mg/ (Sodium Chloride) 250 mls @ 250 mls/hr IV Q12H [facility] Last Infusion: 07/03/22 21:55 Dose: Infused Ipratropium [place] (Ipratropium 2.5 Ml Ampul.Neb) 2.5 ml NEB Q6HRT [facility] Last Admin: 07/04/22 00:15 Dose: 2.5 ml Levalbuterol HCl (Levalbuterol 1.25 Mg/3 Ml Ampul.Neb) 1.25 mg NEB Q6HRT [facility] Last Admin: 07/04/22 00:18 Dose: 1.25 mg Levalbuterol HCl (Levalbuterol 1.25 Mg/3 Ml Ampul.Neb) 1.25 mg NEB Q4HP PRN PRN Reason: Shortness Of Breath Lorazepam (Lorazepam 1 Mg Tablet) 1 mg PO TIDP PRN PRN Reason: ANXIETY/SEDATION Last Admin: 07/03/22 20:52 Dose: 1 mg Methylprednisolone Sodium Succinate (Methylprednisolone Sod Succ 40 Mg/Ml Vial) 40 mg IV Q12 [facility] Last Admin: 07/03/22 20:51 Dose: 40 mg Omeprazole (Omeprazole 20 Mg Capsule) 40 mg PO BIDAC [facility] Last Admin: 07/03/22 16:50 Dose: 40 mg Ondansetron HCl (Ondansetron 4 Mg/2 Ml Vial) 4 mg IV Q4-6HP PRN; Protocol PRN Reason: Nausea And Vomiting Sodium Chloride (0.9 % Sodium Chloride 10 Ml Syringe) 10 ml IV Q8 [facility] Last Admin: 07/04/22 05:28 Dose: 10 ml Vancomycin HCl (Vancomycin Per Pharmacy) 1 order IV UD [facility]; Protocol A/P Narrative A/P Narrative: A: #Acute on chronic hypoxic respiratory failure: likely 2/2 pulmonary fibrosis -Flu/RSV/Covid neg -on vapotherm 35lpm/60%, pt does not tolerate bipap (refuses) -no reserve, desats extremely easy #possible PNA: #Pulmonary fibrosis exacerbation: #COPD / Severe chronic pulmonary fibrosis / Bronchiectasis (8-10L O2@home): #Chronic leukocytosis: #GERD / Rico's esophagus: #h/o colon cancer #Malnourishment: #Anemia, chronic: #Anxiety: prn ativan #Guarded prognosis given severe pulmonary fibrosis and multiple hospitalizations #Goals of care: Plan -Solumedrol (wean) -Oxygen supplementation wean as able -Scheduled xopenex/ipratropium and prn nebs, added budesonide nebs -abx, pending SC, mrsa screen -f/u cxr -monitor/trend electrolyte abnormalities -cont discussions given his decline/lack of improvement -dietary consult -PT and OT. -f/u closely with pulmonology -ppx: Lovenox / ppi Code status: DNR/DNI Time Spent With Patient Time: Total time spent is greater than 50% in coordination of care (as documented) at patient's floor/unit and/or counseling patient: Subsequent: Total time with patient: 50 - 65 Minutes QUALITY VTE Deep Vein Thrombosis/Pulmonary Embolism Present on Admission: No
[2022-07-04] MEDS: OMEPRAZOLE 20 MG CAPSULE PO SCH ×2 (08:07→17:05)
[2022-07-04] MEDS: ENOXAPARIN 40 MG/0.4 ML SYRINGE SQ SCH (09:32)
[2022-07-04] MEDS: methylPREDNISolone SOD SUCC 40 MG/ML VIAL IV SCH ×2 (09:32→20:40)
--- NOTE | 2022-07-04 10:20 | XRay Report ---
CLINICAL INFORMATION: Dyspnea COMPARISON: 11/20/2020 12/30/2021, and 06/30/2022 plain film TECHNIQUE: Portable FINDINGS: Mild cardiomegaly is unchanged. Tracheobronchomegaly noted. The remaining mediastinum and pulmonary vessels are normal. Severe reticular-nodular interstitial fibrosis throughout both lungs is again noted. The patchy superimposed upper lobe infiltrates have improved since the comparison examination less than one week ago. There are no effusions. IMPRESSION: Severe diffuse interstitial fibrosis. Superimposed upper lung pneumonia has improved since the comparison exam one week prior Interpreted and Authenticated by: Pardeep Ruvalcaba 07/04/22
[2022-07-04] MEDS: BUDESONIDE 0.5 MG/2 ML AMPUL.NEB NEB SCH ×3 (13:04→20:39)
[2022-07-04] MEDS: LORazepam 1 MG TABLET PO PRN ×2 (18:55→23:46)
[2022-07-04] MEDS: BENZONATATE 100 MG CAPSULE PO PRN (19:47)
[2022-07-05] MEDS: IPRATROPIUM 2.5 ML AMPUL.NEB NEB SCH ×3 (02:35→17:23)
[2022-07-05] MEDS: LEVALBUTEROL 1.25 MG/3 ML AMPUL.NEB NEB SCH ×3 (02:35→17:24)
[2022-07-05] MEDS: BENZONATATE 100 MG CAPSULE PO PRN ×3 (02:36→20:30)
[2022-07-05] MEDS: CEFEPIME 1 GM VIAL IV SCH ×3 (06:02→20:33)
[2022-07-05] MEDS: 0.9 % SODIUM CHLORIDE 10 ML SYRINGE IV SCH ×3 (06:02→20:31)
[2022-07-05 06:43] LABS: Basophils # (Auto) 0.02 K/mcL (0.00-0.30); Basophils % (Auto) 0.1 % (0.0-2.0); Eosinophils # (Auto) 0 K/mcL (0.00-0.70); Eosinophils % (Auto) 0 % (0.0-7.0); Hematocrit 41.5 % (40.1-51.0); Hemoglobin 12.9 g/dL (13.7-17.5); Lymphocytes # (Auto) 0.96 K/mcL (1.50-4.80); Lymphocytes % (Auto) 5.3 % (15.5-49.0); Mean Cell Volume 89.1 fL (80.0-100.0); Mean Corpuscular HGB Conc 31.1 g/dL (31.0-36.0); Mean Platelet Volume 11.6 fL (8.8-12.5); Monocytes # (Auto) 0.69 K/mcL (0.10-0.90); Monocytes % (Auto) 3.8 % (1.0-12.0); Neutrophils % (Auto) 90.1 % (38.0-78.0); Platelet Count 290 K/mcL (140-440); RBC 4.66 M/mcL (4.63-6.08); Red Cell Distribution Width 13.3 % (11.5-14.5); WBC 18.2 K/mcL (4.5-11.0)
[2022-07-05] MEDS: OMEPRAZOLE 20 MG CAPSULE PO SCH ×2 (07:21→17:11)
[2022-07-05 07:26] LABS: Blood Urea Nitrogen 19 mg/dL (6-20); Calcium 8.8 mg/dL (8.6-10.4); Carbon Dioxide 33 mmol/L (22-30); Chloride 98 mmol/L (96-108); Glomerular Filtration Rate 97; Glucose 113 mg/dL (70-105)
--- NOTE | 2022-07-05 07:57 | Internal Med Progress Note ---
SUBJECTIVE Subjective Patient information: Note initiated : 07/05/22 at 7:55 am Service Date, if different from initiated Date: [] Patient: Ned Fortune a 57 y/o M admitted on 06/30/22 for shortness of breath, O2 62% on 10L high flow.. Chief Complaint: [] Interval history: Mr. Fortune is a 57 year old M with severe end stage pulmonary fibrosis on 10L home O2. He presented with 1-2 days worsening SOB and lower CP and increased O2 demand. Workup in the ER notable for WBC 27, CXR with "severe diffuse intersitial fibrosis with possible pneumonia or aspiration superimposed in the upper lungs." He was markedly hypoxic and required BiPAP. Admission was requested. Jul 01, did well overnight with BiPAP. On HFNC this AM while eating breakfast. Will continue current plan of care. Jul 02, did well overnight but rapidly desats with minimal exertion. Continue Abx, steroids, NBT. 3/ Patient found earlier this morning with his his nasal cannula in his hand, patient poorly responsive at that time. He had high flow and placed back on with good saturations with improvement in mentation. Patient says he feels little better this morning and feels his breathing is better. Patient has mild chronic cough. Patient trying to hold out till family wedding in September. Refusing hospice until that time. He is a DNR/DNI and otherwise understands his limited life span. 3/3 Patient feels about the same as yesterday. Has chronic cough and shortness of breath. Repeat chest x-ray today. Patient on 35 L/min on Vapotherm and FiO2 yesterday was 80% down to 60% today. Nurse had a discussion with yesterday about his extremely guarded prognosis. understood. 3/4 Still requiring Vapotherm. Relatively stable at rest but with any movement sev erely desats. Currently on 35 L/min and 55% will decrease flow. Has cough and shortness of breath. Review of Systems: denies headache/fever/chills/nausea/vomiting/chest or abdominal pain/diarrhea. Otherwise see above. PHYSICAL EXAM: General: Alert, Awake, No acute Distress Eyes/N/T: EOMI, no scleral icterus, Head/Neck: neck supple, full ROM CV: Tachycardic but regular, No murmurs, Pulm: subtle fine Rales b/l, no rhonchi or wheezing Abd: soft, nontender, +BS x4 Ext: no clubbing/cyanosis/edema Neuro: Alert, no focal deficits, moves all extremities, Skin: warm/dry, normal color Constitutional Vitals: Vital Signs Temp Pulse Resp BP Pulse Ox O2 Del Method O2 Flow Rate 98.6 F 87 18 110/79 93 Heated High Flow Nasal Cannula 35 07/05/22 00:00 07/05/22 06:08 07/05/22 06:08 07/05/22 06:08 07/05/22 07:20 07/05/22 07:20 07/05/22 07:20 Period Temp Pulse Resp BP Sys/Ashraf Pulse Ox O2 Del Method O2 Flow Rate Last 24 Hr 97.4 F-98.6 F 87-123 18-52 100-137/79-109 78-100 Heated High Flow Nasal Ca-Heated High Flow Nasal Ca 30-35 Intake and Output 07/04/22 07/05/22 07/05/22 19:59 03:59 11:59 Intake Total 720 Output Total 350 375 101 Balance 370 -375 -101 Weight 51.8 kg Intake & Output: Intake & Output 07/04/22 07/05/22 07/05/22 19:59 03:59 11:59 Intake Total 720 Output Total 350 375 101 Balance 370 -375 -101 Weight 51.8 kg Intake: Oral 720 Output: Urine Catheter Amount 375 Void Amount 350 100 # of times incontinent of urine 1 Other: Meal Dinner Percent of Meal Consumed 25% Feeding Ability Assist with Tray Set Up Urine Appearance Clear Urine Color Dark Yellow Stool Size Large Stool Color Brown Stool Consistency Formed # Voids 1 # Bowel Movements 0 1 # of times incontinent of 0 Bowels OBJ DATA Labs 07/05/22 05:20 07/05/22 05:20 Labs: Abnormal Lab Results 07/05/22 07/05/22 07/03/22 05:20 05:20 05:11 WBC 18.2 H RBC Hgb 12.9 L Hct MCHC Immature Gran % (Auto) 0.7 H Neut % (Auto) 90.1 H Lymph % (Auto) 5.3 L Lymph # (Auto) 0.96 L Immature Gran # 0.12 H Absolute Neutrophils 16.43 H Carbon Dioxide 33 H Glucose 113 H 109 H Albumin 3.1 L 07/03/22 05:11 WBC 19.6 H RBC 4.47 L Hgb 12.0 L Hct 39.4 L MCHC 30.5 L Immature Gran % (Auto) 0.6 H Neut % (Auto) 90.8 H Lymph % (Auto) 4.9 L Lymph # (Auto) 0.97 L Immature Gran # 0.11 H Absolute Neutrophils 17.84 H Carbon Dioxide Glucose Albumin Meds: Medications Acetaminophen (Acetaminophen 325 Mg Tablet) 650 mg PO Q4-6HP PRN; Protocol PRN Reason: Per Pain Protocol/Fever > 101 Last Admin: 07/03/22 20:52 Dose: 650 mg Benzonatate (Benzonatate 100 Mg Capsule) 200 mg PO TIDP PRN PRN Reason: Cough Last Admin: 07/05/22 02:36 Dose: 200 mg Budesonide (Budesonide 0.5 Mg/2 Ml Ampul.Neb) 0.5 mg NEB Q12 [facility] Last Admin: 07/04/22 20:39 Dose: Not Given Cefepime HCl (Cefepime 1 Gm Vial) 1 gm IV Q8H [facility]; Protocol Last Admin: 07/05/22 06:02 Dose: 1 gm Enoxaparin Sodium (Enoxaparin 40 Mg/0.4 Ml Syringe) 40 mg SQ DAILY [facility] Last Admin: 07/04/22 09:32 Dose: 40 mg Ipratropium [place] (Ipratropium 2.5 Ml Ampul.Neb) 2.5 ml NEB Q8H [facility] Last Admin: 07/05/22 02:35 Dose: 2.5 ml Levalbuterol HCl (Levalbuterol 1.25 Mg/3 Ml Ampul.Neb) 1.25 mg NEB Q4HP PRN PRN Reason: Shortness Of Breath Levalbuterol HCl (Levalbuterol 1.25 Mg/3 Ml Ampul.Neb) 1.25 mg NEB Q8H [facility] Last Admin: 07/05/22 02:35 Dose: 1.25 mg Lorazepam (Lorazepam 1 Mg Tablet) 1 mg PO TIDP PRN PRN Reason: ANXIETY/SEDATION Last Admin: 07/04/22 23:46 Dose: 1 mg Methylprednisolone Sodium Succinate (Methylprednisolone Sod Succ 40 Mg/Ml Vial) 40 mg IV Q12 [facility] Last Admin: 07/04/22 20:40 Dose: 40 mg Omeprazole (Omeprazole 20 Mg Capsule) 40 mg PO BIDAC [facility] Last Admin: 07/05/22 07:21 Dose: 40 mg Ondansetron HCl (Ondansetron 4 Mg/2 Ml Vial) 4 mg IV Q4-6HP PRN; Protocol PRN Reason: Nausea And Vomiting Sodium Chloride (0.9 % Sodium Chloride 10 Ml Syringe) 10 ml IV Q8 [facility] Last Admin: 07/05/22 06:02 Dose: 10 ml A/P Narrative A/P Narrative: A: #Acute on chronic hypoxic respiratory failure: likely 2/2 pulmonary fibrosis -Flu/RSV/Covid neg -on vapotherm 35lpm/55%, pt does not tolerate bipap (refuses) -no reserve, desats extremely easy, very slow progress #possible PNA: #Pulmonary fibrosis exacerbation: #COPD / Severe chronic pulmonary fibrosis / Bronchiectasis (8-10L O2@home): #Chronic leukocytosis: #GERD / Rico's esophagus: #h/o colon cancer #Malnourishment: #Anemia, chronic: #Anxiety: prn ativan #Guarded prognosis given severe pulmonary fibrosis and multiple hospitalizations #Goals of care: Plan -Solumedrol (wean) -Oxygen supplementation wean as able, goal is <10L on the wall -Scheduled xopenex/ipratropium and prn nebs, added budesonide nebs -abx, pending [place], mrsa screen neg -chest imaging if worsens -monitor/trend electrolyte abnormalities -cont discussions given his decline/lack of improvement -dietary consult -PT and OT. -f/u closely with pulmonology -ppx: Lovenox / ppi Code status: DNR/DNI Time Spent With Patient Time: Total time spent is greater than 50% in coordination of care (as documented) at patient's floor/unit and/or counseling patient: Subsequent: Total time with patient: 50 - 65 Minutes QUALITY VTE Deep Vein Thrombosis/Pulmonary Embolism Present on Admission: No
[2022-07-05] MEDS: predniSONE 20 MG TABLET PO SCH ×2 (09:15→20:30)
[2022-07-05] MEDS: ENOXAPARIN 40 MG/0.4 ML SYRINGE SQ SCH (09:16)
[2022-07-05] MEDS: LORazepam 1 MG TABLET PO PRN ×2 (09:17→20:30)
[2022-07-05] MEDS: BUDESONIDE 0.5 MG/2 ML AMPUL.NEB NEB SCH ×3 (09:47→19:18)
[2022-07-05] MEDS: ACETAMINOPHEN 325 MG TABLET PO PRN (22:10)
[2022-07-06] MEDS: LEVALBUTEROL 1.25 MG/3 ML AMPUL.NEB NEB SCH ×3 (03:35→18:54)
[2022-07-06] MEDS: IPRATROPIUM 2.5 ML AMPUL.NEB NEB SCH ×3 (03:35→18:55)
[2022-07-06] MEDS: CEFEPIME 1 GM VIAL IV SCH ×3 (05:51→21:12)
[2022-07-06] MEDS: 0.9 % SODIUM CHLORIDE 10 ML SYRINGE IV SCH ×3 (05:51→21:04)
--- NOTE | 2022-07-06 07:43 | Internal Med Progress Note ---
SUBJECTIVE Subjective Patient information: Note initiated : 07/06/22 at 7:40 am Service Date, if different from initiated Date: [] Patient: Ned Fortune a 57 y/o M admitted on 06/30/22 for shortness of breath, O2 62% on 10L high flow.. Chief Complaint: [] Interval history: Mr. Fortune is a 57 year old M with severe end stage pulmonary fibrosis on 10L home O2. He presented with 1-2 days worsening SOB and lower CP and increased O2 demand. Workup in the ER notable for WBC 27, CXR with "severe diffuse intersitial fibrosis with possible pneumonia or aspiration superimposed in the upper lungs." He was markedly hypoxic and required BiPAP. Admission was requested. Jul 01, did well overnight with BiPAP. On HFNC this AM while eating breakfast. Will continue current plan of care. Jul 02, did well overnight but rapidly desats with minimal exertion. Continue Abx, steroids, NBT. 3/ Patient found earlier this morning with his his nasal cannula in his hand, patient poorly responsive at that time. He had high flow and placed back on with good saturations with improvement in mentation. Patient says he feels little better this morning and feels his breathing is better. Patient has mild chronic cough. Patient trying to hold out till family wedding in September. Refusing hospice until that time. He is a DNR/DNI and otherwise understands his limited life span. 3/3 Patient feels about the same as yesterday. Has chronic cough and shortness of breath. Repeat chest x-ray today. Patient on 35 L/min on Vapotherm and FiO2 yesterday was 80% down to 60% today. Nurse had a discussion with yesterday about his extremely guarded prognosis. understood. 3/4 Still requiring Vapotherm. Relatively stable at rest but with any movement sev erely desats. Currently on 35 L/min and 55% will decrease flow. Has cough and shortness of breath. 3/5 Flow rate down to 25 yesterday but had to go back up to 30. FiO2 of 55. Patient has no new complaints. Follow-up labs in the morning. I-S Acapella as needed nebs to continue weaning down oxygen. Review of Systems: denies headache/fever/chills/nausea/vomiting/chest or abdominal pain/diarrhea. Otherwise see above. PHYSICAL EXAM: General: Alert, Awake, No acute Distress Eyes/N/T: EOMI, no scleral icterus, Head/Neck: neck supple, full ROM CV: Tachycardic but regular, No murmurs, Pulm: subtle fine Rales b/l, no rhonchi or wheezing Abd: soft, nontender, +BS x4 Ext: no clubbing/cyanosis/edema Neuro: Alert, no focal deficits, moves all extremities, Skin: warm/dry, normal color Constitutional Vitals: Vital Signs Temp Pulse Resp BP Pulse Ox O2 Del Method O2 Flow Rate 97.4 F 101 H 21 124/99 98 Heated High Flow Nasal Cannula 30 07/06/22 04:00 07/06/22 06:00 07/06/22 06:00 07/06/22 06:00 07/06/22 06:00 07/06/22 06:18 07/06/22 04:00 Period Temp Pulse Resp BP Sys/Ashraf Pulse Ox O2 Del Method O2 Flow Rate Last 24 Hr 96.8 F-98.7 F 84-122 18-40 109-136/79-107 50-100 Heated High Flow Nasal Ca-High Flow Nasal Cannula 25-35 Intake and Output 07/05/22 07/06/22 07/06/22 19:59 03:59 11:59 Intake Total 150 650 200 Output Total 1200 475 0 Balance -1050 175 200 Weight 49.124 kg Intake & Output: Intake & Output 07/05/22 07/06/22 07/06/22 19:59 03:59 11:59 Intake Total 150 650 200 Output Total 1200 475 0 Balance -1050 175 200 Weight 49.124 kg Intake: Oral 150 650 200 Output: Void Amount 1200 475 0 Other: Meal Lunch Percent of Meal Consumed 75% Feeding Ability Independent Urine Appearance Clear Clear Urine Color Dark Yellow Yellow # Bowel Movements 0 OBJ DATA Labs 07/05/22 05:20 07/05/22 05:20 Labs: Abnormal Lab Results 07/05/22 07/05/22 05:20 05:20 WBC 18.2 H Hgb 12.9 L Immature Gran % (Auto) 0.7 H Neut % (Auto) 90.1 H Lymph % (Auto) 5.3 L Lymph # (Auto) 0.96 L Immature Gran # 0.12 H Absolute Neutrophils 16.43 H Carbon Dioxide 33 H Glucose 113 H Meds: Medications Acetaminophen (Acetaminophen 325 Mg Tablet) 650 mg PO Q4-6HP PRN; Protocol PRN Reason: Per Pain Protocol/Fever > 101 Last Admin: 07/05/22 22:10 Dose: 650 mg Benzonatate (Benzonatate 100 Mg Capsule) 200 mg PO TIDP PRN PRN Reason: Cough Last Admin: 07/05/22 20:30 Dose: 200 mg Budesonide (Budesonide 0.5 Mg/2 Ml Ampul.Neb) 0.5 mg NEB Q12 [facility] Last Admin: 07/05/22 19:18 Dose: Not Given Cefepime HCl (Cefepime 1 Gm Vial) 1 gm IV Q8H [facility]; Protocol Last Admin: 07/06/22 05:51 Dose: 1 gm Enoxaparin Sodium (Enoxaparin 40 Mg/0.4 Ml Syringe) 40 mg SQ DAILY [facility] Last Admin: 07/05/22 09:16 Dose: 40 mg Ipratropium [place] (Ipratropium 2.5 Ml Ampul.Neb) 2.5 ml NEB Q8H [facility] Last Admin: 07/06/22 03:35 Dose: 2.5 ml Levalbuterol HCl (Levalbuterol 1.25 Mg/3 Ml Ampul.Neb) 1.25 mg NEB Q4HP PRN PRN Reason: Shortness Of Breath Levalbuterol HCl (Levalbuterol 1.25 Mg/3 Ml Ampul.Neb) 1.25 mg NEB Q8H [facility] Last Admin: 07/06/22 03:35 Dose: 1.25 mg Lorazepam (Lorazepam 1 Mg Tablet) 1 mg PO TIDP PRN PRN Reason: ANXIETY/SEDATION Last Admin: 07/05/22 20:30 Dose: 1 mg Omeprazole (Omeprazole 20 Mg Capsule) 40 mg PO BIDAC [facility] Last Admin: 07/05/22 17:11 Dose: 40 mg Ondansetron HCl (Ondansetron 4 Mg/2 Ml Vial) 4 mg IV Q4-6HP PRN; Protocol PRN Reason: Nausea And Vomiting Prednisone (Prednisone 20 Mg Tablet) 40 mg PO BID [facility] Last Admin: 07/05/22 20:30 Dose: 40 mg Sodium Chloride (0.9 % Sodium Chloride 10 Ml Syringe) 10 ml IV Q8 [facility] Last Admin: 07/06/22 05:51 Dose: 10 ml A/P Narrative A/P Narrative: A: #Acute on chronic hypoxic respiratory failure: likely 2/2 pulmonary fibrosis -Flu/RSV/Covid neg -on vapotherm 25-30lpm/55%, pt does not tolerate bipap (refuses) -no reserve, desats extremely easy, very slow progress #possible PNA: #Pulmonary fibrosis exacerbation: #COPD / Severe chronic pulmonary fibrosis / Bronchiectasis (8-10L O2@home): #Chronic leukocytosis: #GERD / Rico's esophagus: #h/o colon cancer #Malnourishment: #Anemia, chronic: #Anxiety: prn ativan #Guarded prognosis given severe pulmonary fibrosis and multiple hospitalizations #Goals of care: Plan -prednisone (wean) -Oxygen supplementation wean as able, goal is <10L on the wall -Scheduled xopenex/ipratropium and prn nebs, added budesonide nebs -abx d/c tomorrow, pending SC, mrsa screen neg -chest imaging if worsens -monitor/trend electrolyte abnormalities -dietary consult -PT and OT. -f/u closely with pulmonology -ppx: Lovenox / ppi Code status: DNR/DNI Time Spent With Patient Time: Total time spent is greater than 50% in coordination of care (as documented) at patient's floor/unit and/or counseling patient: Subsequent: Total time with patient: 35 - 49 minutes QUALITY VTE Deep Vein Thrombosis/Pulmonary Embolism Present on Admission: No
[2022-07-06] MEDS: ENOXAPARIN 40 MG/0.4 ML SYRINGE SQ SCH (09:23)
[2022-07-06] MEDS: OMEPRAZOLE 20 MG CAPSULE PO SCH ×2 (09:23→16:41)
[2022-07-06] MEDS: predniSONE 20 MG TABLET PO SCH ×2 (09:23→21:05)
[2022-07-06] MEDS: BENZONATATE 100 MG CAPSULE PO PRN ×2 (09:26→21:03)
[2022-07-06] MEDS: LORazepam 1 MG TABLET PO PRN ×2 (09:26→21:03)
[2022-07-06] MEDS: BUDESONIDE 0.5 MG/2 ML AMPUL.NEB NEB SCH ×3 (10:14→21:00)
--- NOTE | 2022-07-06 11:58 | Discharge Summary ---
Discharge Provider Provider IMPORTANT FOLLOW-UP INFORMATION FOR PCP: Patient information: Note initiated : 07/06/22 at 11:56 am Service Date, if different from initiated Date: [] Patient: Ned Fortune a 57 y/o M admitted on 06/30/22 for shortness of breath, O2 62% on 10L high flow.. Chief Complaint: [] Date of admission: 06/30/22 17:40 Primary care physician: HAILEE Multani Consults: 07/01/22 07:27 Consult to Physician [CONS] Routine Comment: Consulting Provider: Solo Mccray Reason For Exam: Physician to Consult COURSE Hospital Course Hospital course: Interval history: Mr. Fortune is a 57 year old M with severe end stage pulmonary fibrosis on 10L home O2. He presented with 1-2 days worsening SOB and lower CP and increased O2 demand. Workup in the ER notable for WBC 27, CXR with "severe diffuse intersitial fibrosis with possible pneumonia or aspiration superimposed in the upper lungs." He was markedly hypoxic and required BiPAP. Admission was requested. Jul 01, did well overnight with BiPAP. On HFNC this AM while eating breakfast. Will continue current plan of care. Jul 02, did well overnight but rapidly desats with minimal exertion. Continue Abx, steroids, NBT. 3/2 Patient found earlier this morning with his his nasal cannula in his hand, patient poorly responsive at that time. He had high flow and placed back on with good saturations with improvement in mentation. Patient says he feels little better this morning and feels his breathing is better. Patient has mild chronic cough. Patient trying to hold out till family wedding in September. Refusing hospice until that time. He is a DNR/DNI and otherwise understands his limited life span. 3/3 Patient feels about the same as yesterday. Has chronic cough and shortness of breath. Repeat chest x-ray today. Patient on 35 L/min on Vapotherm and FiO2 yesterday was 80% down to 60% today. Nurse had a discussion with yesterday about his extremely guarded prognosis. understood. 3/4 Still requiring Vapotherm. Relatively stable at rest but with any movement severely desats. Currently on 35 L/min and 55% will decrease flow. Has cough and shortness of breath. 3/5 Flow rate down to 25 yesterday but had to go back up to 30. FiO2 of 55. Patient has no new complaints. Follow-up labs in the morning. I-S Acapella as needed nebs to continue weaning down oxygen. 3/6 Was able to maintain at 11 L high flow nasal cannula last night. Required more with exertion. Patient feeling about the same yesterday, no new complaints. Continue to titrate down to home regimen. White blood cell counts mildly improved. Updated labs appropriate. A: #Acute on chronic hypoxic respiratory failure: likely 2/2 pulmonary fibrosis #possible PNA: #Pulmonary fibrosis exacerbation: #COPD / Severe chronic pulmonary fibrosis / Bronchiectasis (8-10L O2@home): #Chronic leukocytosis: #GERD / Rico's esophagus: #h/o colon cancer #Malnourishment: #Anemia, chronic: #Anxiety: prn ativan #Guarded prognosis given severe pulmonary fibrosis and multiple hospitalizations #Goals of care: Plan -prednisone (wean) -f/u closely with pulmonology Discharge diagnosis: acute on chronic resp failure, pna, pulm fibrosis Secondary discharge diagnosis: what is wrong with his Dragon dictationCOPD pulmonary fibrosis bronchiectasis GERD colon cancer malnourishment chronic anemia Anxiety guarded prognosis Time Spent with Patient Time attestation: Total time spent providing and/or coordinating discharge services: Time spent: Greater than 30 minutes EXAM Constitutional Vitals: Temp Pulse Resp BP Pulse Ox O2 Del Method O2 Flow Rate 97.3 F 106 H 32 H 116/88 90 Heated High Flow Nasal Cannula 30 07/06/22 08:01 07/06/22 10:18 07/06/22 10:18 07/06/22 10:00 07/06/22 10:18 07/06/22 10:18 07/06/22 10:18 Discharge Data Data Completed and Pending Labs on day of discharge: Preliminary micro results at discharge 07/04/22 10:30 Gram Stain - Preliminary Sputum source - Induced Sputum Culture - Preliminary Discharge Plan Patient/Caregiver Discharge Instructions Activity: increase activity as tolerated Diet: Regular Diet Instructions: Chronic Respiratory Failure (DC) Activity Restrictions/Additional Instructions: Follow-up with pulmonology in 3 to 7 days. Prescriptions: New prednisone 10 mg tablet 40 mg PO QDAY Qty: 1 0RF Rx Instructions: Take 40mg once daily for 2 days then 20mg daily for 2 days then back to home regimen. Continued ipratropium-albuterol 0.5 mg-3 mg(2.5 mg base)/3 mL solution for nebulization 3 ml inhalation Q4HRT PRN (Reason: Wheezing) Qty: 100 6RF (DME) Electric mobility scooter See Rx Instructions .Route .MEDSUPPLY Qty: 1 0RF Rx Instructions: Patient unable to ambulate due to severe lung disease. albuterol sulfate 90 mcg/actuation HFA aerosol inhaler 2 puff INHALATION Q4HP PRN (Reason: Shortness Of Breath) Qty: 8.5 2RF umeclidinium 62.5 mcg-vilanterol 25 mcg/actuation powdr for inhalation 62.5-25 mcg/actuation blister with device 1 inh INHALATION Q24H Qty: 60 1RF Rx Instructions: 340B plan. prednisone 10 mg tablet 10 mg PO QAM Qty: 30 4RF omeprazole 40 mg capsule,delayed release(DR/EC) 40 mg PO QDAY Qty: 90 1RF cetirizine 10 mg capsule 10 mg PO QDAY Rx Instructions: qd diphenhydramine HCl [Benadryl Allergy] 25 mg tablet 25 - 50 mg PO BID Rx Instructions: Pt states takes at 1800 and 2 010 dextromethorphan-guaifenesin [Diabetic Tussin DM] 10-100 mg/5 mL Liquid 10 ml PO Q4HP PRN (Reason: Cough) Qty: 500 0RF lorazepam [Ativan] 0.5 mg tablet 0.5 mg PO TID PRN (Reason: anxiety) Qty: 20 0RF prednisone 10 mg tablet 40 mg PO QDAY Qty: 1 0RF Rx Instructions: Take 40mg once daily for 3 days then 20mg daily for 3 days then continue home prednisone regimen thereafter. Follow Up Plan Follow up with: Adair Ramirez MD [Physician] - (Office will call you with appointment date. If you do not hear from them by Thursday please call them.) Liane Howell ARNP [Primary Care Provider] - (Office will reach out to you to schedule. If you do not hear from them by Thursday please call them.) Patient Disposition: Home, Self-Care Prognosis: Serious Overall status at discharge: patient is progressing back to baseline QUALITY VTE Deep Vein Thrombosis/Pulmonary Embolism Present on Admission: No
[2022-07-06] MEDS: ACETAMINOPHEN 325 MG TABLET PO PRN (21:03)
[2022-07-07] MEDS: LEVALBUTEROL 1.25 MG/3 ML AMPUL.NEB NEB SCH ×2 (03:00→10:08)
[2022-07-07] MEDS: IPRATROPIUM 2.5 ML AMPUL.NEB NEB SCH ×2 (03:00→10:03)
[2022-07-07] MEDS: CEFEPIME 1 GM VIAL IV SCH (05:21)
[2022-07-07] MEDS: 0.9 % SODIUM CHLORIDE 10 ML SYRINGE IV SCH (05:21)
[2022-07-07 06:30] LABS: Basophils # (Auto) 0.02 K/mcL (0.00-0.30); Basophils % (Auto) 0.1 % (0.0-2.0); Eosinophils # (Auto) 0 K/mcL (0.00-0.70); Eosinophils % (Auto) 0 % (0.0-7.0); Hematocrit 41.3 % (40.1-51.0); Hemoglobin 12.6 g/dL (13.7-17.5); Lymphocytes # (Auto) 0.67 K/mcL (1.50-4.80); Lymphocytes % (Auto) 3.8 % (15.5-49.0); Mean Cell Volume 88.4 fL (80.0-100.0); Mean Corpuscular HGB Conc 30.5 g/dL (31.0-36.0); Mean Platelet Volume 11.1 fL (8.8-12.5); Monocytes # (Auto) 0.49 K/mcL (0.10-0.90); Monocytes % (Auto) 2.8 % (1.0-12.0); Neutrophils % (Auto) 92.7 % (38.0-78.0); Platelet Count 301 K/mcL (140-440); RBC 4.67 M/mcL (4.63-6.08); Red Cell Distribution Width 13.7 % (11.5-14.5); WBC 17.7 K/mcL (4.5-11.0)
[2022-07-07 06:45] LABS: Blood Urea Nitrogen 19 mg/dL (6-20); Calcium 8.4 mg/dL (8.6-10.4); Carbon Dioxide 32 mmol/L (22-30); Chloride 100 mmol/L (96-108); Glomerular Filtration Rate 103; Glucose 105 mg/dL (70-105)
--- NOTE | 2022-07-07 07:36 | Internal Med Progress Note ---
SUBJECTIVE Subjective Patient information: Note initiated : 07/07/22 at 7:35 am Service Date, if different from initiated Date: [] Patient: Ned Fortune a 57 y/o M admitted on 06/30/22 for shortness of breath, O2 62% on 10L high flow.. Chief Complaint: [] Interval history: Mr. Fortune is a 57 year old M with severe end stage pulmonary fibrosis on 10L home O2. He presented with 1-2 days worsening SOB and lower CP and increased O2 demand. Workup in the ER notable for WBC 27, CXR with "severe diffuse intersitial fibrosis with possible pneumonia or aspiration superimposed in the upper lungs." He was markedly hypoxic and required BiPAP. Admission was requested. Jul 01, did well overnight with BiPAP. On HFNC this AM while eating breakfast. Will continue current plan of care. Jul 02, did well overnight but rapidly desats with minimal exertion. Continue Abx, steroids, NBT. 3/ Patient found earlier this morning with his his nasal cannula in his hand, patient poorly responsive at that time. He had high flow and placed back on with good saturations with improvement in mentation. Patient says he feels little better this morning and feels his breathing is better. Patient has mild chronic cough. Patient trying to hold out till family wedding in September. Refusing hospice until that time. He is a DNR/DNI and otherwise understands his limited life span. 3/ Patient feels about the same as yesterday. Has chronic cough and shortness of breath. Repeat chest x-ray today. Patient on 35 L/min on Vapotherm and FiO2 yesterday was 80% down to 60% today. Nurse had a discussion with yesterday about his extremely guarded prognosis. understood. 3 Still requiring Vapotherm. Relatively stable at rest but with any movement sev erely desats. Currently on 35 L/min and 55% will decrease flow. Has cough and shortness of breath. 3/5 Flow rate down to 25 yesterday but had to go back up to 30. FiO2 of 55. Patient has no new complaints. Follow-up labs in the morning. I-S Acapella as needed nebs to continue weaning down oxygen. 07/07 Was able to maintain at 11 L high flow nasal cannula last night. Required more with exertion. Patient feeling about the same yesterday, no new complaints. Continue to titrate down to home regimen. White blood cell counts mildly improved. Updated labs appropriate. Review of Systems: denies headache/fever/chills/nausea/vomiting/chest or abdominal pain/diarrhea. Otherwise see above. PHYSICAL EXAM: General: Alert, Awake, No acute Distress Eyes/N/T: EOMI, no scleral icterus, Head/Neck: neck supple, full ROM CV: Tachycardic but regular, No murmurs, Pulm: subtle fine Rales b/l, no rhonchi or wheezing Abd: soft, nontender, +BS x4 Ext: no clubbing/cyanosis/edema Neuro: Alert, no focal deficits, moves all extremities, Skin: warm/dry, normal color Constitutional Vitals: Vital Signs Temp Pulse Resp BP Pulse Ox O2 Del Method O2 Flow Rate 97.1 F 80 15 113/87 100 High Flow Nasal Cannula 11 07/07/22 04:00 07/07/22 06:08 07/07/22 06:08 07/07/22 06:01 07/07/22 06:08 07/07/22 06:08 07/07/22 06:08 Period Temp Pulse Resp BP Sys/Ashraf Pulse Ox O2 Del Method O2 Flow Rate Last 24 Hr 97 F-97.3 F 80-122 15-52 94-133/76-100 90-100 Heated High Flow Nasal Ca-Nasal Cannula, Bubble Humidifier 04-02 Intake and Output 07/06/22 07/07/22 07/07/22 19:59 03:59 11:59 Intake Total 1200 480 100 Output Total 650 300 300 Balance 550 180 -200 Weight 42.91 kg Intake & Output: Intake & Output 07/06/22 07/07/22 07/07/22 19:59 03:59 11:59 Intake Total 1200 480 100 Output Total 650 300 300 Balance 550 180 -200 Weight 42.91 kg Intake: Oral 1200 480 100 Output: Void Amount 650 300 300 Other: Meal Dinner Percent of Meal Consumed 100% Feeding Ability Independent Urine Appearance Clear Clear Urine Color Yellow Yellow Urine Odor Normal # Bowel Movements 0 OBJ DATA Labs 07/07/22 05:24 07/07/22 05:24 Labs: Abnormal Lab Results 03/06/23 03/06/23 03/04/23 05:24 05:24 05:20 WBC 17.7 H Hgb 12.6 L MCHC 30.5 L Immature Gran % (Auto) 0.6 H Neut % (Auto) 92.7 H Lymph % (Auto) 3.8 L Lymph # (Auto) 0.67 L Immature Gran # 0.11 H Absolute Neutrophils 16.39 H Carbon Dioxide 32 H 33 H Anion Gap 6.0 L Glucose 113 H Calcium 8.4 L 07/05/22 05:20 WBC 18.2 H Hgb 12.9 L MCHC Immature Gran % (Auto) 0.7 H Neut % (Auto) 90.1 H Lymph % (Auto) 5.3 L Lymph # (Auto) 0.96 L Immature Gran # 0.12 H Absolute Neutrophils 16.43 H Carbon Dioxide Anion Gap Glucose Calcium Meds: Medications Acetaminophen (Acetaminophen 325 Mg Tablet) 650 mg PO Q4-6HP PRN; Protocol PRN Reason: Per Pain Protocol/Fever > 101 Last Admin: 07/06/22 21:03 Dose: 650 mg Benzonatate (Benzonatate 100 Mg Capsule) 200 mg PO TIDP PRN PRN Reason: Cough Last Admin: 07/06/22 21:03 Dose: 200 mg Budesonide (Budesonide 0.5 Mg/2 Ml Ampul.Neb) 0.5 mg NEB Q12 [facility] Last Admin: 07/06/22 21:00 Dose: 0.5 mg Cefepime HCl (Cefepime 1 Gm Vial) 1 gm IV Q8H [facility]; Protocol Last Admin: 07/07/22 05:21 Dose: 1 gm Enoxaparin Sodium (Enoxaparin 40 Mg/0.4 Ml Syringe) 40 mg SQ DAILY [facility] Last Admin: 07/06/22 09:23 Dose: 40 mg Ipratropium [place] (Ipratropium 2.5 Ml Ampul.Neb) 2.5 ml NEB Q8H [facility] Last Admin: 07/07/22 03:00 Dose: 2.5 ml Levalbuterol HCl (Levalbuterol 1.25 Mg/3 Ml Ampul.Neb) 1.25 mg NEB Q4HP PRN PRN Reason: Shortness Of Breath Levalbuterol HCl (Levalbuterol 1.25 Mg/3 Ml Ampul.Neb) 1.25 mg NEB Q8H [facility] Last Admin: 07/07/22 03:00 Dose: 1.25 mg Lorazepam (Lorazepam 1 Mg Tablet) 1 mg PO TIDP PRN PRN Reason: ANXIETY/SEDATION Last Admin: 07/06/22 21:03 Dose: 1 mg Omeprazole (Omeprazole 20 Mg Capsule) 40 mg PO BIDAC [facility] Last Admin: 07/06/22 16:41 Dose: 40 mg Ondansetron HCl (Ondansetron 4 Mg/2 Ml Vial) 4 mg IV Q4-6HP PRN; Protocol PRN Reason: Nausea And Vomiting Prednisone (Prednisone 20 Mg Tablet) 40 mg PO BID [facility] [place] Last Admin: 07/06/22 21:05 Dose: 40 mg Sodium Chloride (0.9 % Sodium Chloride 10 Ml Syringe) 10 ml IV Q8 [facility] [place] Last Admin: 07/07/22 05:21 Dose: 10 ml A/P Narrative A/P Narrative: A: #Acute on chronic hypoxic respiratory failure: likely 2/2 pulmonary fibrosis -Flu/RSV/Covid neg -now on HLFC 11L -no reserve, desats extremely easy, very slow progress #possible PNA: SC neg #Pulmonary fibrosis exacerbation: #COPD / Severe chronic pulmonary fibrosis / Bronchiectasis (8-10L O2@home): #Chronic leukocytosis: #GERD / Rico's esophagus: #h/o colon cancer #Malnourishment: #Anemia, chronic: #Anxiety: prn ativan #Guarded prognosis given severe pulmonary fibrosis and multiple hospitalizations #Goals of care: Plan -prednisone (wean) -Oxygen supplementation wean as able, goal is <10L on the wall -Scheduled xopenex/ipratropium and prn nebs, added budesonide nebs -abx d/c, mrsa screen neg -chest imaging if worsens -monitor/trend electrolyte abnormalities -dietary consult -PT and OT. -f/u closely with pulmonology -ppx: Lovenox / ppi Code status: DNR/DNI Time Spent With Patient Time: Total time spent is greater than 50% in coordination of care (as documented) at patient's floor/unit and/or counseling patient: Subsequent: Total time with patient: 35 - 49 minutes QUALITY VTE Deep Vein Thrombosis/Pulmonary Embolism Present on Admission: No
[2022-07-07] MEDS: OMEPRAZOLE 20 MG CAPSULE PO SCH (07:57)
[2022-07-07] MEDS ORDERED: predniSONE 20 MG TABLET PO SCH (08:00)
[2022-07-07] MEDS: ENOXAPARIN 40 MG/0.4 ML SYRINGE SQ SCH (08:52)
[2022-07-07] MEDS: LORazepam 1 MG TABLET PO PRN (09:05)
[2022-07-07] MEDS: BUDESONIDE 0.5 MG/2 ML AMPUL.NEB NEB SCH (10:08)
--- NOTE | 2022-07-07 14:22 | Discharge Summary ---
Discharge Provider Provider IMPORTANT FOLLOW-UP INFORMATION FOR PCP: Patient information: Note initiated : 07/07/22 at 2:15 pm Service Date, if different from initiated Date: [] Patient: Ned Fortune a 57 y/o M admitted on 06/30/22 for shortness of breath, O2 62% on 10L high flow.. Chief Complaint: [] Date of admission: 06/30/22 17:40 Discharge date: 07/07/22 Primary care physician: HAILEE Multani Consults: 07/01/22 07:27 Consult to Physician [CONS] Routine Comment: Consulting Provider: Solo Mccray Reason For Exam: Physician to Consult COURSE Hospital Course Hospital course: Mr. Fortune is a 57 year old M with severe end stage pulmonary fibrosis on 10L home O2. He presented with 1-2 days worsening SOB and lower CP and increased O2 demand. Workup in the ER notable for WBC 27, CXR with "severe diffuse intersitial fibrosis with possible pneumonia or aspiration superimposed in the upper lungs." He was markedly hypoxic and required BiPAP. Admission was requested. Jul 01, did well overnight with BiPAP. On HFNC this AM while eating breakfast. Will continue current plan of care. Jul 02, did well overnight but rapidly desats with minimal exertion. Continue Abx, steroids, NBT. 3/2 Patient found earlier this morning with his his nasal cannula in his hand, patient poorly responsive at that time. He had high flow and placed back on with good saturations with improvement in mentation. Patient says he feels little better this morning and feels his breathing is better. Patient has mild chronic cough. Patient trying to hold out till family wedding in September. Refusing hospice until that time. He is a DNR/DNI and otherwise understands his limited life span. 3/3 Patient feels about the same as yesterday. Has chronic cough and shortness of breath. Repeat chest x-ray today. Patient on 35 L/min on Vapotherm and FiO2 yesterday was 80% down to 60% today. Nurse had a discussion with yesterday about his extremely guarded prognosis. understood. 3/4 Still requiring Vapotherm. Relatively stable at rest but with any movement severely desats. Currently on 35 L/min and 55% will decrease flow. Has cough and shortness of breath. 3/5 Flow rate down to 25 yesterday but had to go back up to 30. FiO2 of 55. Patient has no new complaints. Follow-up labs in the morning. I-S Acapella as needed nebs to continue weaning down oxygen. 3/6 Was able to maintain at 11 L high flow nasal cannula last night. Required more with exertion. Patient feeling about the same yesterday, no new complaints. Continue to titrate down to home regimen. White blood cell counts mildly improved. Additional home oxygen supplies available at home so the patient can have an additional oxygen flow if necessary. Discussed discharging the patient home t yoandy versus keeping him until tomorrow, the patient wants to discharge home today. I will discharge the patient on a prednisone taper before he resumes the previous dose of prednisone 10 mg daily. Trial of Megace twice a day as the patient appears severely malnourished and that may increase his appetite. Refilled Ativan as needed for anxiety. Prognosis is guarded and the patient understands that. The patient is at high risk for hospital readmission due to respiratory failure. The patient will follow-up with pulmonology after discharge. Physical exam Head: Atraumatic, normal inspection. Eyes: normal appearance, no scleral icterus. Neck: full ROM Respiratory: Oxygen supplementation 10 L/min, patient is tachypneic and using accessory muscle use. Cardiovascular: normal rate and rhythm, S1, S2. GI/Abdominal: soft, nontender, no guarding. Extremities: Muscle wasting in all extremities, nontender extremities. Neurological: CN II-XII intact, intact motor, intact sensation. Psychiatric: normal mood. Skin: warm, normal color Discharge diagnosis: Acute on chronic hypoxic respiratory failure Secondary discharge diagnosis: Severe pulmonary fibrosis exacerbation COPD Time Spent with Patient Time attestation: Total time spent providing and/or coordinating discharge services: Time spent: Greater than 30 minutes EXAM Constitutional Vitals: Temp Pulse Resp BP Pulse Ox O2 Del Method O2 Flow Rate 97.1 F 103 H 42 H 130/100 98 High Flow Nasal Cannula 10 07/07/22 12:01 07/07/22 12:07/07/22 12:07/07/22 12:01 07/07/22 12:01 07/07/22 12:07/07/22 12:01 Discharge Data Data Completed and Pending Labs on day of discharge: Labs from last 24 hours 07/07/22 07/07/22 05:24 05:24 WBC 17.7 H RBC 4.67 Hgb 12.6 L Hct 41.3 MCV 88.4 MCH 27.0 MCHC 30.5 L RDW 13.7 Plt Count 301 MPV 11.1 Immature Gran % (Auto) 0.6 H Neut % (Auto) 92.7 H Lymph % (Auto) 3.8 L Early % (Auto) 2.8 Eos % (Auto) 0 Baso % (Auto) 0.1 Lymph # (Auto) 0.67 L Early # (Auto) 0.49 Eos # (Auto) 0 Baso # (Auto) 0.02 Immature Gran # 0.11 H Absolute Neutrophils 16.39 H Sodium 138 Potassium 4.4 Chloride 100 Carbon Dioxide 32 H Anion Gap 6.0 L BUN 19 Creatinine 0.7 GFR Calculation 103 Glucose 105 Calcium 8.4 L Discharge Plan Patient/Caregiver Discharge Instructions Activity: increase activity as tolerated Diet: Regular Diet Instructions: Chronic Respiratory Failure (DC) Activity Restrictions/Additional Instructions: Follow-up with pulmonology in 3 to 7 days. Prescriptions: New prednisone 10 mg tablet 40 mg PO QDAY Qty: 1 0RF Rx Instructions: Take 40mg once daily for 2 days then 20mg daily for 2 days then back to home regimen. budesonide 0.5 mg/2 mL suspension for nebulization 0.5 mg inhalation Q12 Qty: 60 4RF megestrol 400 mg/10 mL (40 mg/mL) suspension 200 mg PO BID Qty: 480 0RF prednisone 10 mg tablet 10 mg PO QDAY Qty: 40 0RF Rx Instructions: Take prednisone 40 mg daily for 3 days followed by prednisone 30 mg daily for 3 days followed by prednisone 20 mg for 3 days then resume prednisone 10 mg daily until you follow-up with pulmonology for further dosing instructions. lorazepam [Ativan] 0.5 mg tablet 0.5 mg PO TID PRN (Reason: anxiety) Qty: 20 0RF Continued ipratropium-albuterol 0.5 mg-3 mg(2.5 mg base)/3 mL solution for nebulization 3 ml inhalation Q4HRT PRN (Reason: Wheezing) Qty: 100 6RF (DME) Electric mobility scooter See Rx Instructions .Route .MEDSUPPLY Qty: 1 0RF Rx Instructions: Patient unable to ambulate due to severe lung disease. albuterol sulfate 90 mcg/actuation HFA aerosol inhaler 2 puff INHALATION Q4HP PRN (Reason: Shortness Of Breath) Qty: 8.5 2RF umeclidinium 62.5 mcg-vilanterol 25 mcg/actuation powdr for inhalation 62.5-25 mcg/actuation blister with device 1 inh INHALATION Q24H Qty: 60 1RF Rx Instructions: 340B plan. prednisone 10 mg tablet 10 mg PO QAM Qty: 30 4RF omeprazole 40 mg capsule,delayed release(DR/EC) 40 mg PO QDAY Qty: 90 1RF cetirizine 10 mg capsule 10 mg PO QDAY Rx Instructions: qd diphenhydramine HCl [Benadryl Allergy] 25 mg tablet 25 - 50 mg PO BID Rx Instructions: Pt states takes at 1800 and 2 010 dextromethorphan-guaifenesin [Diabetic Tussin DM] 10-100 mg/5 mL Liquid 10 ml PO Q4HP PRN (Reason: Cough) Qty: 500 0RF lorazepam [Ativan] 0.5 mg tablet 0.5 mg PO TID PRN (Reason: anxiety) Qty: 20 0RF Discontinued prednisone 10 mg tablet 40 mg PO QDAY Qty: 1 0RF Rx Instructions: Take 40mg once daily for 3 days then 20mg daily for 3 days then continue home prednisone regimen thereafter. Follow Up Plan Follow up with: Adair Ramirez MD [Physician] - (Office will call you with appointment date. If you do not hear from them by Thursday please call them.) Liane Howell ARNP [Primary Care Provider] - (Office will reach out to you to schedule. If you do not hear from them by Thursday please call them.) Patient Disposition: Home, Self-Care Prognosis: Serious Overall status at discharge: patient is progressing back to baseline Discharge Orders: Discharge Order (Routine); Ordered 07/07/22 Ordered By: Mike CABRERA VTE Deep Vein Thrombosis/Pulmonary Embolism Present on Admission: No
== END 2022-07-07 15:20 | disposition home or self-care (01) | DRG 189 ==
LOC: ED 13:02 → ICU 17:40
PROVIDERS: ADMIT Internal Medicine; ATTEND Internal Medicine

== ENCOUNTER 2022-07-18 22:17 | Inpatient (IN) ==
--- NOTE | 2022-07-18 22:25 | Emergency Department Note ---
SOB HPI General Chief Complaint: Shortness of Breath/Dyspnea Stated Complaint: SOB Time Seen by Provider: 07/18/22 22:25 Source: patient Mode of arrival: EMS Limitations: no limitations History of Present Illness HPI Narrative: 57-year-old male with end-stage coronary fibrosis presents to the emergency department because of shortness of breath that began this evening. States he had a cold symptoms yesterday. Was recently hospitalized and was discharged 10 days ago after hospitalization for pneumonia. He is normally on 15 L of O2 continuously at home because of his pulmonary fibrosis. That is reportedly se condary to GERD. Patient quit smoking tobacco in 1998. He denies other symptoms besides the shortness of breath. Patient does have anxiety for which she takes Ativan last dose was at 6 PM. Other medical problems include Rico's esophagitis, status post Clara fundoplication, GERD, other. Patient is a DNR. Does not want intubation and does not want CPR. Patient is hoping to live another couple months so that he can see his daughter's wedding in September. EMS was called because of his shortness of breath. In the ambulance patient received Solu-Medrol 125 mg IV and a DuoNeb treatment which she feels was helpful. Here in the emergency department he was immediately started on BiPAP which has helped. At the time I went into the room the patient's pulse was 135. Pulse ox was 91 to 94% on 70% O2. Patient states that he is usually tachycardic. Related Data Home Medications Medication Instructions Recorded Confirmed cetirizine 10 mg capsule 10 mg PO QDAY 08/05/19 07/09/22 diphenhydramine HCl 25 mg tablet 25 - 50 mg PO BID 12/05/21 07/09/22 (Benadryl Allergy) Previous Rx's Medication Instructions Recorded dextromethorphan-guaifenesin 10 10 ml PO Q4HP PRN Cough #500 mL 01/04/22 mg-100 mg/5 mL oral liquid (Diabetic Tussin DM) ipratropium 0.5 mg-albuterol 3 mg 3 ml inhalation Q4HRT PRN Wheezing 01/21/22 (2.5 mg base)/3 mL nebulization #100 mL soln Electric mobility scooter #1 ea 03/19/22 albuterol sulfate 90 mcg/actuation 2 puff inhalation Q4HP PRN 04/08/22 aerosol inhaler Shortness Of Breath #8.5 grams umeclidinium 62.5 mcg-vilanterol 1 inh inhalation Q24H #60 ea 05/15/22 25 mcg/actuation powdr for inhalation (Anoro Ellipta) omeprazole 40 mg capsule,delayed 40 mg PO QDAY #90 caps 06/25/22 release budesonide 0.5 mg/2 mL suspension 0.5 mg (2 mL) inhalation Q12 #60 mL 07/07/22 for nebulization megestrol 400 mg/10 mL (40 mg/mL) 200 mg (5 mL) PO BID #480 mL 07/07/22 oral suspension prednisone 10 mg tablet 10 mg PO QDAY #40 tabs 07/07/22 lorazepam 0.5 mg tablet (Ativan) 0.5 mg PO TID PRN anxiety #40 tabs 07/18/22 Allergies Allergy/AdvReac Type Severity Reaction Status Date / Time naproxen AdvReac Intermediate purple Verified 07/18/22 22:29 spots on face Review of Systems ROS ROS Narrative: Narrative: Constitutional: Denies fever Eyes: Denies eye pain ENT ED: Reports throat pain; Denies rhinorrhea Cardiovascular: Denies chest pain Respiratory: Reports shortness of breath Gastrointestinal: Denies nausea or vomiting Genitourinary: Denies dysuria Musculoskeletal: Denies back pain Integumentary: Denies rash Neurological: Denies headache Psychiatric: Reports anxiety Allergic/Immunologic: Reports other (Seasonal allergies) PFSH Narrative Patient History Narrative: Narrative: Medical/Surgical/Family History All Active Problems (Updated 07/18/22 @ 23:56 by Brando Uribe MD) Respiratory failure, acute (Acute) Pulmonary infection (Acute) Pulmonary fibrosis (Acute) Pneumonia (Acute) Acute exacerbation of chronic obstructive pulmonary disease (Acute) Elevated brain natriuretic peptide (BNP) level (Acute) Acute and chronic respiratory failure with hypoxia (Acute) SOB (shortness of breath) (Acute) Chest pain (Acute) Anemia, normocytic normochromic (Acute) Acute and chronic respiratory failure with hypoxia (Acute) Muscular deconditioning (Chronic) SOB (shortness of breath) (Acute) Respiratory failure (Acute) Acute and chronic respiratory failure (Acute) CAP (community acquired pneumonia) (Acute) COPD exacerbation (Acute) H/O malignant neoplasm of colon (Chronic) Pulmonary fibrosis determined by high resolution computed tomography (Chronic) GERD with esophagitis (Chronic) Rico esophagus (Chronic) Bronchiectasis (Chronic) Hypoxemia (Chronic) Walking pneumonia (Chronic) SOB (shortness of breath) (Chronic) Tubulovillous adenoma (Chronic) Colon cancer (Chronic ~07/2014) Iron deficiency anemia (Chronic) Sinus congestion (Chronic) SOB (shortness of breath) on exertion (Chronic) COPD (chronic obstructive pulmonary disease) (Chronic) Eczema (Chronic) Elevated BP without diagnosis of hypertension (Chronic) Seasonal allergies (Chronic) Oxygen desaturation (Chronic) COVID-19 (Acute) Pneumonia due to COVID-19 virus (Acute) LLL pneumonia (Chronic) Medical History Rico esophagus Bronchiectasis Colon cancer (~07/2014) history of tubulovillous adenoma and colon carcinoma , removed 07/2014 COPD (chronic obstructive pulmonary disease) Eczema Elevated BP without diagnosis of hypertension GERD with esophagitis H/O malignant neoplasm of colon H/O: rheumatic fever Hypoxemia Iron deficiency anemia Muscular deconditioning Oxygen desaturation 11/26/2020: 75-88% on oxygen today in clinic Pulmonary fibrosis determined by high resolution computed tomography Seasonal allergies Tubulovillous adenoma Surgical History History of colonoscopy (08/11/16) abnormal History of repair of hiatal hernia (~04/2018) bleeding ulcers History of tonsillectomy and adenoidectomy (~1969) S/P Clara fundoplication (without gastrostomy tube) procedure Family History Father PNA (pneumonia) Prostate cancer Mother Kidney failure Grandfather Cancer Daughter Hemiplegic migraine Ovarian cyst Social History Smoking Status: Former smoker Alcohol Intake Frequency: holiday/special occasion only Substance Use: does not use Exam Narrative Narrative: Narrative: General Limitations: no limitations General appearance: Present alert and in distress Head Head: Present atraumatic and normocephalic Eye Eye: Present normal appearance; Absent scleral icterus Chest Chest: Present normal inspection Respiratory Respiratory: Present respiratory distress and rales/crackles; Absent wheezes Cardiovascular Cardiovascular: Present normal rhythm and tachycardia Adbominal Abdominal: Present soft; Absent tenderness Extremities Extremities: Absent pedal edema or pretibial edema Back Back: Absent tenderness Neurological Neurological: Present alert and oriented X3 Psychiatric Psychiatric: Present normal affect and normal mood Skin Skin: Present warm (WNL) and dry Course Reevaluation(s) Reevaluation #1: Pulse ox 88% on 50% O2 via BiPAP. Patient will require admission. Time: 23:25 Vital Signs Vital signs: Vital Signs Pulse Rate 135 H 07/18/22 22:18 Respiratory Rate 30 H 07/18/22 22:18 Blood Pressure 100/80 07/18/22 22:18 Pulse Oximetry (%) 90 07/18/22 22:18 Oxygen Delivery Method Non-Rebreather Mask 07/18/22 22:18 Oxygen Flow Rate (L/min) 14 07/18/22 22:18 Temperature 98.5 F 07/18/22 22:46 Pulse Rate 133 H 07/18/22 23:21 Respiratory Rate 33 H 07/18/22 23:21 Blood Pressure 115/79 07/18/22 22:57 Pulse Oximetry (%) 90 07/18/22 23:33 Oxygen Delivery Method BiPAP 07/18/22 22:46 Oxygen Flow Rate (L/min) 96 07/18/22 22:29 MDM MDM Narrative Medical decision making narrative: Narrative: 57-year-old male with end-stage pulmonary fibrosis now with shortness of breath. Differential diagnosis includes acute pneumonia, viral bronchitis, acute exacerbation of pulmonary fibrosis, COVID, influenza, other. COVID test was negative. Influenza a and B were both negative. White count was elevated at 19.4 with elevated neutrophils of 84% and lymphocytes low at 7%. Hemoglobin was 13.2. Lactic acid was normal at 1.7. Potassium was normal at 3.5 with a normal chloride of 102. Bicarb was 33, mildly elevated. BUN was normal at 17 with a normal creatinine of 0.9. Glucose was normal at 98. Hepatic panel unremarkable. Chest x-ray was difficult to interpret beyond stating that it showed pulmonary fibrosis. Reevaluation at 2325. Heart rate remains in the 130s. O2 has been turned down on the BiPAP to 50% and with that the patient has a pulse ox of 88%. states that his pulse ox usually runs in the 91-94 range at home and that he had been on 10 L in the past but more recently on 15 L at home. I will treat the patient for pneumonia even though I am not sure that there is a pneumonia on the chest x-ray. Patient be given 1 g ceftriaxone IV and 500 mg of azithromycin IV. Blood cultures were already obtained. Lactic acid level was normal. 2334: Call placed to the hospitalist to discuss admission. 2349: Discussed with Dr. Hughes the hospitalist. He is very familiar with the patient. We will admit the patient to the PCU and he will see the patient in the morning. Sepsis Sepsis Identified: No Lab Data 07/18/22 22:57 Labs: Lab Results 07/18/22 07/18/22 07/18/22 Range/Units 22:33 22:39 22:56 WBC (4.5-11.0) K/mcL RBC (4.63-6.08) M/mcL Hgb (13.7-17.5) g/dL Hct (40.1-51.0) % POC Hct 43.0 (41-55) MCV (80.0-100.0) fL MCH (26.0-34.0) pg MCHC (31.0-36.0) g/dL RDW (11.5-14.5) % Plt Count (140-440) K/mcL MPV (8.8-12.5) fL Immature Gran % (Auto) (0.0-0.5) % Neut % (Auto) (38.0-78.0) % Lymph % (Auto) (15.5-49.0) % [place] % (Auto) (1.0-12.0) % Eos % (Auto) (0.0-7.0) % Baso % (Auto) (0.0-2.0) % Lymph # (Auto) (1.50-4.80) K/mcL [place] # (Auto) (0.10-0.90) K/mcL Eos # (Auto) (0.00-0.70) K/mcL Baso # (Auto) (0.00-0.30) K/mcL Immature Gran # (0.00-0.05) K/mcl Absolute Neutrophils (1.80-8.00) K/mcL POC VBG pH 7.38 (7.32-7.42) POC VBG pCO2 at Temp 56.7 H (41-51) POC VBG pO2 29 (25-40) POC VBG HCO3 33.8 H (24-28) POC VBG Total CO2 36.0 H (25-29) POC Venous O2 Sat 53.0 (40-70) POC VBG Base Excess 9.0 H* (-2-2) VBG Lactic Acid 1.7 (0.5-2) POC Sodium 142 (133-145) POC Potassium 3.5 (3.3-5.1) POC Chloride 102 (96-108) POC Total CO2 33.0 H (22-30) POC BUN 17 (6-20) POC Creatinine 0.9 (0.6-1.2) POC Glucose 98 (70-105) POC WB Ioniz Calcium 1.11 L (1.16-1.32) Total Bilirubin 0.3 (0.1-1.0) mg/dL Direct Bilirubin < 0.2 (0-0.3) mg/dL AST 27 (<40) U/L ALT 36 (<40) U/L Alkaline Phosphatase 116 (39-117) U/L Total Protein 6.6 (5.9-8.4) gm/dL Albumin 3.5 (3.2-5.2) gm/dL Globulin 3.1 (2.2-3.7) gm/dL 07/18/22 Range/Units 22:57 WBC 19.4 H (4.5-11.0) K/mcL RBC 4.85 (4.63-6.08) M/mcL Hgb 13.2 L (13.7-17.5) g/dL Hct 43.2 (40.1-51.0) % POC Hct (41-55) MCV 89.1 (80.0-100.0) fL MCH 27.2 (26.0-34.0) pg MCHC 30.6 L (31.0-36.0) g/dL RDW 13.8 (11.5-14.5) % Plt Count 241 (140-440) K/mcL MPV 11.7 (8.8-12.5) fL Immature Gran % (Auto) 0.6 H (0.0-0.5) % Neut % (Auto) 83.8 H (38.0-78.0) % Lymph % (Auto) 6.9 L (15.5-49.0) % [place] % (Auto) 8.4 (1.0-12.0) % Eos % (Auto) 0.1 (0.0-7.0) % Baso % (Auto) 0.2 (0.0-2.0) % Lymph # (Auto) 1.33 L (1.50-4.80) K/mcL [place] # (Auto) 1.63 H (0.10-0.90) K/mcL Eos # (Auto) 0.02 (0.00-0.70) K/mcL Baso # (Auto) 0.04 (0.00-0.30) K/mcL Immature Gran # 0.11 H (0.00-0.05) K/mcl Absolute Neutrophils 16.28 H (1.80-8.00) K/mcL POC VBG pH (7.32-7.42) POC VBG pCO2 at Temp (41-51) POC VBG pO2 (25-40) POC VBG HCO3 (24-28) POC VBG Total CO2 (25-29) POC Venous O2 Sat (40-70) POC VBG Base Excess (-2-2) VBG Lactic Acid (0.5-2) POC Sodium (133-145) POC Potassium (3.3-5.1) POC Chloride (96-108) POC Total CO2 (22-30) POC BUN (6-20) POC Creatinine (0.6-1.2) POC Glucose (70-105) POC WB Ioniz Calcium (1.16-1.32) Total Bilirubin (0.1-1.0) mg/dL Direct Bilirubin (0-0.3) mg/dL AST (<40) U/L ALT (<40) U/L Alkaline Phosphatase (39-117) U/L Total Protein (5.9-8.4) gm/dL Albumin (3.2-5.2) gm/dL Globulin (2.2-3.7) gm/dL EKG Data EKG #1: EKG attestation: Yes I reviewed and interpreted this EKG. EKG shows normal: sinus rhythm Rate: tachycardia ST segment elevation in: None ST segment depression in: None Hyperacute T waves: None Interpretation: other (Abnormal EKG. Sinus tachycardia.) CC TIME Critical Care Time Critical Care Time: Yes Total Critical Care Time: 35 Attestation: I spent greater than 35 minutes of critical care time with this patient exclusive of all procedures. His severe hypoxia required BiPAP therapy initiation as soon as he arrived. He had respiratory failure with his underlying pulmonary fibrosis and now possible acute infection. Admitted to the ICU. Discharge Plan Patient/Caregiver Discharge Instructions Pt seen by ENGINE[employer]/PA only: No Clinical Impression: Pulmonary infection, Pulmonary fibrosis Respiratory failure, acute Qualifiers: Respiratory failure complication: hypoxia Qualified Code(s): J96.01 - Acute respiratory failure with hypoxia Patient Disposition: Xfer As Inpt ([facility]) Condition: Critical Discharge Date/Time: 07/19/22 00:27
[2022-07-18 22:42] LABS: POC Calcium, Ionized 1.11 (1.16-1.32); POC Creatinine 0.9 (0.6-1.2); POC Potassium 3.5 (3.3-5.1)
[2022-07-18] MEDS ORDERED: 0.9 % SODIUM CHLORIDE 500 ML IV ONE (22:42)
[2022-07-18] MEDS ORDERED: LORazepam 2 MG/ML VIAL IV ONE (22:42)
[2022-07-18 23:24] LABS: Basophils # (Auto) 0.04 K/mcL (0.00-0.30); Basophils % (Auto) 0.2 % (0.0-2.0); Eosinophils # (Auto) 0.02 K/mcL (0.00-0.70); Eosinophils % (Auto) 0.1 % (0.0-7.0); Hematocrit 43.2 % (40.1-51.0); Hemoglobin 13.2 g/dL (13.7-17.5); Lymphocytes # (Auto) 1.33 K/mcL (1.50-4.80); Lymphocytes % (Auto) 6.9 % (15.5-49.0); Mean Cell Volume 89.1 fL (80.0-100.0); Mean Corpuscular HGB Conc 30.6 g/dL (31.0-36.0); Mean Platelet Volume 11.7 fL (8.8-12.5); Monocytes # (Auto) 1.63 K/mcL (0.10-0.90); Monocytes % (Auto) 8.4 % (1.0-12.0); Neutrophils % (Auto) 83.8 % (38.0-78.0); Platelet Count 241 K/mcL (140-440); RBC 4.85 M/mcL (4.63-6.08); Red Cell Distribution Width 13.8 % (11.5-14.5); WBC 19.4 K/mcL (4.5-11.0)
[2022-07-18] MEDS ORDERED: AZITHROMYCIN 500 MG in DEXTROSE 5% IN WATER 250 ML IV ONE (23:36)
[2022-07-18] MEDS ORDERED: cefTRIAXone 1 GM VIAL IV ONE (23:36)
[2022-07-18 23:41] LABS: ALT/SGPT 36 U/L (<40); AST/SGOT 27 U/L (<40); Albumin 3.5 gm/dL (3.2-5.2); Alkaline Phosphatase 116 U/L (39-117); Bilirubin,Direct < 0.2 mg/dL (0-0.3); Bilirubin,Total 0.3 mg/dL (0.1-1.0); Globulin 3.1 gm/dL (2.2-3.7)
[2022-07-19] MEDS ORDERED: LORazepam 2 MG/ML VIAL IV ONE (01:44)
[2022-07-19] MEDS ORDERED: LORazepam 2 MG/ML VIAL ONE (01:48)
--- NOTE | 2022-07-19 08:08 | Internal Med History&Physical ---
HPI History of Present Illness Patient information: Note initiated : 07/19/22 at 8:01 am Service Date, if different from initiated Date: [] Patient: Ned Fortune a 57 y/o M admitted on 07/19/22 for Shortness of breath. Chief Complaint: [] History of present illness: Mr. Fortune is a 57 year old M Presents back to the ED for increased shortness of breath. 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 He has been admitted 3 times since April. [facility] He is also had multiple ED visits. He is on 10 L or more with several concentrators of oxygen at home. He he used just been hoping to make it to a wedding in September. Patient said he developed cold-like symptoms yesterday. He was just discharged a week and a half ago from the hospital. He states he developed a worsening cough productive of off-white thick sputum. Had increased shortness of breath. He was sent home last discharge with a second concentrator which broke and then he obtained another 1. Vital signs in the ED showed tachycardia which is common for him. He was tachypneic he was initially started on a nonrebreather but was requiring BiPAP. Patient dropped to 70% O2 at 1 point. In the ED. Patient was given Solu-Medrol and 25 breathing treatments. Empiric antibiotics started. Chest x-ray with worsening formation central portion left upper lobe. Patient found to have leukocytosis of 19,000 which is chronic for him. We will check manual differential. Review of Systems: Pertinent positives above. Denies headache/fever/chills/nausea/vomiting/chest or abdominal pain/diarrhea. Remaining 10 point review of system reviewed negative PHYSICAL EXAM General: Alert, Awake, No acute Distress Eyes/N/T: EOMI, no scleral icterus, PERRL, dry MM Head/Neck: neck supple, full ROM, normocephalic atraumatic CV: Tachycardic but regular, No murmurs, normal s1/s2 Pulm: fine Rales b/l L>R, no wheezing Abd: soft, nontender, +BS x4 Ext: no clubbing/cyanosis/edema, nontender Neuro: Alert, no focal deficits, moves all extremities, CN 2-12 grossly intact, sensations intact b/l upper/lower Psychiatric: Skin: warm/dry, normal color PFSH PFSH All Active Problems (Updated 07/18/22 @ 23:56 by Brando Uribe MD) Respiratory failure, acute (Acute) Pulmonary infection (Acute) Pulmonary fibrosis (Acute) Pneumonia (Acute) Acute exacerbation of chronic obstructive pulmonary disease (Acute) Elevated brain natriuretic peptide (BNP) level (Acute) Acute and chronic respiratory failure with hypoxia (Acute) SOB (shortness of breath) (Acute) Chest pain (Acute) Anemia, normocytic normochromic (Acute) Acute and chronic respiratory failure with hypoxia (Acute) Muscular deconditioning (Chronic) SOB (shortness of breath) (Acute) Respiratory failure (Acute) Acute and chronic respiratory failure (Acute) CAP (community acquired pneumonia) (Acute) COPD exacerbation (Acute) H/O malignant neoplasm of colon (Chronic) Pulmonary fibrosis determined by high resolution computed tomography (Chronic) GERD with esophagitis (Chronic) Rico esophagus (Chronic) Bronchiectasis (Chronic) Hypoxemia (Chronic) Walking pneumonia (Chronic) SOB (shortness of breath) (Chronic) Tubulovillous adenoma (Chronic) Colon cancer (Chronic ~07/2014) Iron deficiency anemia (Chronic) Sinus congestion (Chronic) SOB (shortness of breath) on exertion (Chronic) COPD (chronic obstructive pulmonary disease) (Chronic) Eczema (Chronic) Elevated BP without diagnosis of hypertension (Chronic) Seasonal allergies (Chronic) Oxygen desaturation (Chronic) COVID-19 (Acute) Pneumonia due to COVID-19 virus (Acute) LLL pneumonia (Chronic) Medical History Rico esophagus Bronchiectasis Colon cancer (~07/2014) history of tubulovillous adenoma and colon carcinoma , removed 07/2014 COPD (chronic obstructive pulmonary disease) Eczema Elevated BP without diagnosis of hypertension GERD with esophagitis H/O malignant neoplasm of colon H/O: rheumatic fever Hypoxemia Iron deficiency anemia Muscular deconditioning Oxygen desaturation 11/26/2020: 75-88% on oxygen today in clinic Pulmonary fibrosis determined by high resolution computed tomography Seasonal allergies Tubulovillous adenoma Surgical History History of colonoscopy (08/11/16) abnormal History of repair of hiatal hernia (~04/2018) bleeding ulcers History of tonsillectomy and adenoidectomy (~1970) S/P Clara fundoplication (without gastrostomy tube) procedure Family History Father PNA (pneumonia) Prostate cancer Mother Kidney failure Grandfather Cancer Daughter Hemiplegic migraine Ovarian cyst Social History household members: spouse and family housing: house marital status: occupational status: retired 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 Has 2 children physical activity: none smoking status: Former smoker quit date: 05/04/98 pack-years: 20 alcohol intake frequency: holiday/special occasion only substance use type: does not use MEDS/ALLERGIES Home Medications and Allergies Home Medications Medication Instructions Recorded Confirmed Type cetirizine 10 mg capsule 10 mg PO QDAY 08/05/19 07/19/22 History diphenhydramine HCl 25 mg tablet 25 - 50 mg PO BID 12/05/21 07/19/22 History (Benadryl Allergy) dextromethorphan-guaifenesin 10 10 ml PO Q4HP PRN Cough #500 mL 01/04/22 07/19/22 Rx mg-100 mg/5 mL oral liquid (Diabetic Tussin DM) ipratropium 0.5 mg-albuterol 3 mg 3 ml inhalation Q4HRT PRN Wheezing 01/21/22 07/19/22 Rx (2.5 mg base)/3 mL nebulization #100 mL soln Electric mobility scooter #1 ea 03/19/22 07/09/22 Rx albuterol sulfate 90 mcg/actuation 2 puff inhalation Q4HP PRN 04/08/22 07/19/22 Rx aerosol inhaler Shortness Of Breath #8.5 grams umeclidinium 62.5 mcg-vilanterol 1 inh inhalation Q24H #60 ea 05/15/22 07/19/22 Rx 25 mcg/actuation powdr for inhalation (Anoro Ellipta) omeprazole 40 mg capsule,delayed 40 mg PO QDAY #90 caps 02/22/23 03/18/23 Rx release budesonide 0.5 mg/2 mL suspension 0.5 mg (2 mL) inhalation Q12 #60 mL 07/07/22 07/19/22 Rx for nebulization megestrol 400 mg/10 mL (40 mg/mL) 200 mg (5 mL) PO BID #480 mL 07/07/22 07/09/22 Rx oral suspension prednisone 10 mg tablet 10 mg PO QDAY #40 tabs 07/07/22 07/19/22 Rx lorazepam 0.5 mg tablet (Ativan) 0.5 mg PO TID PRN anxiety #40 tabs 07/18/22 07/19/22 Rx Allergies Allergy/AdvReac Type Severity Reaction Status Date / Time naproxen AdvReac Intermediate purple Verified 07/18/22 22:29 spots on face EXAM Constitutional Vitals: Temp Pulse Resp BP Pulse Ox O2 Del Method O2 Flow Rate 98.8 F 112 H 24 H 82/69 95 BiPAP 96 07/19/22 00:46 07/19/22 06:00 07/19/22 06:00 07/19/22 06:00 07/19/22 06:00 07/19/22 03:54 07/18/22 22:29 DATA Data Completed and Pending Labs: Labs from last 24 hours 07/18/22 07/18/22 07/18/22 23:57 22:57 22:56 WBC 19.4 H RBC 4.85 Hgb 13.2 L Hct 43.2 POC Hct MCV 89.1 MCH 27.2 MCHC 30.6 L RDW 13.8 Plt Count 241 MPV 11.7 Immature Gran % (Auto) 0.6 H Neut % (Auto) 83.8 H Lymph % (Auto) 6.9 L Greenlee % (Auto) 8.4 Eos % (Auto) 0.1 Baso % (Auto) 0.2 Lymph # (Auto) 1.33 L Greenlee # (Auto) 1.63 H Eos # (Auto) 0.02 Baso # (Auto) 0.04 Immature Gran # 0.11 H Absolute Neutrophils 16.28 H POC VBG pH POC VBG pCO2 at Temp POC VBG pO2 POC VBG HCO3 POC VBG Total CO2 POC Venous O2 Sat POC VBG Base Excess VBG Lactic Acid POC Sodium POC Potassium POC Chloride POC Total CO2 POC BUN POC Creatinine POC Glucose POC WB Ioniz Calcium Total Bilirubin 0.3 Direct Bilirubin < 0.2 AST 27 ALT 36 Alkaline Phosphatase 116 Total Protein 6.6 Albumin 3.5 Globulin 3.1 POC Troponin I 0.07 07/18/22 07/18/22 22:39 22:33 WBC RBC Hgb Hct POC Hct 43.0 MCV MCH MCHC RDW Plt Count MPV Immature Gran % (Auto) Neut % (Auto) Lymph % (Auto) Greenlee % (Auto) Eos % (Auto) Baso % (Auto) Lymph # (Auto) Greenlee # (Auto) Eos # (Auto) Baso # (Auto) Immature Gran # Absolute Neutrophils POC VBG pH 7.38 POC VBG pCO2 at Temp 56.7 H POC VBG pO2 29 POC VBG HCO3 33.8 H POC VBG Total CO2 36.0 H POC Venous O2 Sat 53.0 POC VBG Base Excess 9.0 H* VBG Lactic Acid 1.7 POC Sodium 142 POC Potassium 3.5 POC Chloride 102 POC Total CO2 33.0 H POC BUN 17 POC Creatinine 0.9 POC Glucose 98 POC WB Ioniz Calcium 1.11 L Total Bilirubin Direct Bilirubin AST ALT Alkaline Phosphatase Total Protein Albumin Globulin POC Troponin I A/P Narrative A/P Narrative: A: #Acute on chronic hypoxic respiratory failure: 2/2 pulmonary fibrosis -Flu/RSV/Covid -on bipap -no reserve, desats extremely easy # #Pulmonary fibrosis exacerbation: #COPD / Severe chronic pulmonary fibrosis / Bronchiectasis (10-15L O2@home): #Chronic leukocytosis: #GERD / Rico's esophagus: #h/o colon cancer #Malnourishment: #Anemia, chronic: #Anxiety: prn ativan #Extremely Guarded prognosis given severe pulmonary fibrosis and multiple hospitalizations #Goals of care: pt hoping to make it until September, but given recent history this may be unlikely, cont family/pt discussions Plan -solumedrol -Oxygen supplementation wean as able, wean off Bipap as able -Scheduled xopenex/ipratropium and prn nebs, add budesonide nebs -empiric abx, mrsa screen -pct pending -chest imaging if worsens -check Flu/RSV/Covid/rvp/strep -monitor/trend electrolyte abnormalities -Home medication reconciliation -prn Ativan -dietary consult -PT and OT -f/u closely with pulmonology -ppx: Lovenox / ppi Code status: DNR/DNI Time Spent With Patient Time: Total time spent is greater than 50% in coordination of care (as documented) at patient's floor/unit and/or counseling patient: Critical Care Time: Yes Total Critical Care Time: 70 QUALITY VTE Deep Vein Thrombosis/Pulmonary Embolism Present on Admission: No
[2022-07-19] MEDS ORDERED: AZITHROMYCIN 500 MG in DEXTROSE 5% IN WATER 250 ML IV SCH (08:15)
[2022-07-19] MEDS ORDERED: SENNOSIDES 1 TABLET PO PRN (08:15)
[2022-07-19] MEDS ORDERED: POTASSIUM CHLORIDE 40 MEQ in DEXTROSE 5% IN WATER 500 ML IV PRN (08:15)
[2022-07-19] MEDS ORDERED: POLYETHYLENE GLYCOL 3350 17 GM PACKET PO PRN (08:15)
[2022-07-19] MEDS ORDERED: IPRATROPIUM/ALBUTEROL 3 ML AMPUL.NEB NEB PRN (08:15)
[2022-07-19] MEDS ORDERED: cefTRIAXone 1 GM in DEXTROSE 5% IN WATER 50 ML IV SCH (08:15)
[2022-07-19] MEDS ORDERED: POTASSIUM CHLORIDE 20 MEQ TABLET PO PRN ×2 (08:15)
[2022-07-19] MEDS ORDERED: ONDANSETRON 4 MG/2 ML VIAL IV PRN (08:15)
[2022-07-19] MEDS ORDERED: MAGNESIUM SULFATE 2 GM/50 ML BAG IV PRN (08:15)
--- NOTE | 2022-07-19 08:33 | XRay Report ---
HISTORY: Pulmonary fibrosis with worsening shortness of breath FINDINGS: Patient has severe fibrosis and inflammation throughout both lungs. This is a chronic finding. There has been mild progression of the inflammation in the central portion of the left upper lobe since 07/04/22. No pneumothorax or pleural effusion are present. The heart size is normal. IMPRESSION: Worsening inflammation in the central portion of the left upper lobe superimposed upon underlying severe pulmonary fibrosis Interpreted and Authenticated by: Glenroy Beal 07/19/22
[2022-07-19] MEDS: methylPREDNISolone SOD SUCC 125 MG/2 ML VIAL IV SCH ×3 (08:54→21:56)
[2022-07-19] MEDS: DOCUSATE SODIUM 100 MG CAPSULE PO SCH ×2 (08:55→21:55)
[2022-07-19] MEDS: ENOXAPARIN 40 MG/0.4 ML SYRINGE SQ SCH (08:55)
[2022-07-19] MEDS: OMEPRAZOLE 20 MG CAPSULE PO SCH (08:55)
[2022-07-19] MEDS: BUDESONIDE 0.5 MG/2 ML AMPUL.NEB NEB SCH ×2 (09:24→19:05)
[2022-07-19 09:46] LABS: Phosphorous 3.6 mg/dL (2.5-4.5)
[2022-07-19 10:03] LABS: Band Neutrophils % 1 % (0-10); Lymphocytes % 3 % (15-49); Monocytes % (Manual) 1 % (1-12); Platelet Estimate NORMAL (Normal); RBC Morphology NORMAL (Normal); Reactive Lymphocytes 1 % (0-2); Segmented Neutrophils % 94 % (38-78)
[2022-07-19] MEDS: LEVALBUTEROL 0.63 MG/3 ML AMPUL.NEB NEB SCH ×2 (12:27→19:06)
[2022-07-19] MEDS: IPRATROPIUM 2.5 ML AMPUL.NEB NEB SCH ×2 (12:28→19:06)
[2022-07-19] MEDS: 0.9 % SODIUM CHLORIDE 10 ML SYRINGE IV SCH ×2 (13:59→21:55)
[2022-07-19] MEDS: diphenhydrAMINE 25 MG CAPSULE PO PRN ×2 (14:00→21:56)
[2022-07-19] MEDS: cefTRIAXone 1 GM VIAL IV SCH (14:00)
[2022-07-19] MEDS: ACETAMINOPHEN 325 MG TABLET PO PRN (14:00)
[2022-07-19] MEDS: LORazepam 2 MG/ML VIAL IV PRN ×3 (14:06→21:57)
[2022-07-19] MEDS: AZITHROMYCIN 500 MG in DEXTROSE 5% IN WATER 250 ML IV SCH (15:45)
[2022-07-19] MEDS ORDERED: BUTALB/ACETAMINOPHEN/CAFFEINE 1 TABLET PO ONE (17:10)
[2022-07-19] MEDS: guaiFENesin/DEXTROMETHORPHAN 5ML UD CUP PO PRN (21:59)
[2022-07-20] MEDS: IPRATROPIUM 2.5 ML AMPUL.NEB NEB SCH ×4 (06:06→18:39)
[2022-07-20] MEDS: LEVALBUTEROL 0.63 MG/3 ML AMPUL.NEB NEB SCH ×4 (06:07→18:39)
[2022-07-20] MEDS: 0.9 % SODIUM CHLORIDE 10 ML SYRINGE IV SCH ×3 (06:07→21:55)
[2022-07-20] MEDS: methylPREDNISolone SOD SUCC 125 MG/2 ML VIAL IV SCH (06:12)
[2022-07-20 06:27] LABS: Basophils # (Auto) 0.02 K/mcL (0.00-0.30); Basophils % (Auto) 0.1 % (0.0-2.0); Eosinophils # (Auto) 0 K/mcL (0.00-0.70); Eosinophils % (Auto) 0 % (0.0-7.0); Hematocrit 38.6 % (40.1-51.0); Lymphocytes # (Auto) 0.74 K/mcL (1.50-4.80); Lymphocytes % (Auto) 3.5 % (15.5-49.0); Mean Cell Volume 87.5 fL (80.0-100.0); Mean Corpuscular HGB Conc 31.1 g/dL (31.0-36.0); Mean Platelet Volume 11.5 fL (8.8-12.5); Monocytes # (Auto) 0.68 K/mcL (0.10-0.90); Monocytes % (Auto) 3.2 % (1.0-12.0); Neutrophils % (Auto) 92.8 % (38.0-78.0); Platelet Count 227 K/mcL (140-440); RBC 4.41 M/mcL (4.63-6.08); Red Cell Distribution Width 13.3 % (11.5-14.5)
[2022-07-20 06:49] LABS: ALT/SGPT 26 U/L (<40); AST/SGOT 20 U/L (<40); Alkaline Phosphatase 87 U/L (39-117); Bilirubin,Direct < 0.2 mg/dL (0-0.3); Bilirubin,Total 0.2 mg/dL (0.1-1.0); Blood Urea Nitrogen 15 mg/dL (6-20); Calcium 8.8 mg/dL (8.6-10.4); Carbon Dioxide 31 mmol/L (22-30); Chloride 103 mmol/L (96-108); Globulin 2.9 gm/dL (2.2-3.7); Glomerular Filtration Rate 110; Glucose 121 mg/dL (70-105); Lactate Dehydrogenase 197 U/L (135-225); Phosphorous 3.7 mg/dL (2.5-4.5); Triglycerides 85 mg/dL (<150); Uric Acid 3.2 mg/dL (2.5-8.0)
[2022-07-20] MEDS: BUDESONIDE 0.5 MG/2 ML AMPUL.NEB NEB SCH ×2 (07:08→18:39)
--- NOTE | 2022-07-20 07:54 | Internal Med Progress Note ---
SUBJECTIVE Subjective Patient information: Note initiated : 07/20/22 at 7:49 am Service Date, if different from initiated Date: [] Patient: Ned Fortune 57 y/o M admitted on 07/19/22 for Shortness of breath. Chief Complaint: [] Interval history: History of present illness: Mr. Fortune is a 57 year old M Presents back to the ED for increased shortness of breath. 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 He has been admitted 3 times since April. This will be his fourth admission at [facility]. He is also had multiple ED visits. He is on 10 L or more with several concentrators of oxygen at home. He he used just been hoping to make it to a wedding in September. Patient said he developed cold-like symptoms yesterday. He was just discharged a week and a half ago from the hospital. He states he developed a worsening cough productive of off-white thick sputum. Had increased shortness of breath. He was sent home last discharge with a second concentrator which broke and then he obtained another 1. Vital signs in the ED showed tachycardia which is common for him. He was tachypneic he was initially started on a nonrebreather but was requiring BiPAP. Patient dropped to 70% O2 at 1 point. In the ED. Patient was given Solu-Medrol and 25 breathing treatments. Empiric antibiotics started. Chest x-ray with worsening formation central portion left upper lobe. Patient found to have leukocytosis of 19,000 which is chronic for him. We will check manual differential. 07/20 Patient feeling a bit better today. Shortness of breath improving and mild cough. Now on Vapotherm from BiPAP yesterday.Continue weaning oxygen as able. Taper steroids. Nebulizers and home inhalers Review of Systems: Pertinent positives above. Denies headache/fever/chills/nausea/vomiting/chest or abdominal pain/diarrhea. PHYSICAL EXAM General: Alert, Awake, No acute Distress Eyes/N/T: EOMI, no scleral icterus, Head/Neck: neck supple, full ROM, CV: Tachycardic but regular, No murmurs, Pulm: fine Rales b/l L>R, no wheezing Abd: soft, nontender, +BS x4 Ext: no clubbing/cyanosis/edema, nontender Neuro: Alert, no focal deficits, moves all extremities, sensations intact b/l upper/lower Psychiatric: Skin: warm/dry, normal color Constitutional Vitals: Vital Signs Temp Pulse Resp BP Pulse Ox O2 Del Method O2 Flow Rate 98.2 F 92 H 23 H 109/89 94 Heated High Flow Nasal Cannula 35 07/20/22 04:00 07/20/22 07:05 07/20/22 07:05 07/20/22 06:00 07/20/22 07:05 07/20/22 07:05 07/20/22 07:05 Period Temp Pulse Resp BP Sys/Ashraf Pulse Ox O2 Del Method O2 Flow Rate Last 24 Hr 97.5 F-99.3 F 78-130 15-54 95-132/74-96 82-100 BiPAP-Heated High Flow Nasal Ca 35-50 Intake and Output 07/19/22 07/20/22 07/20/22 19:59 03:59 11:59 Intake Total 470 1000 Output Total 325 Balance 470 675 Weight 59.33 kg Intake & Output: Intake & Output 07/19/22 07/20/22 07/20/22 19:59 03:59 11:59 Intake Total 470 1000 Output Total 325 Balance 470 675 Weight 59.33 kg Intake: IV 250 Zithromax 500 mg In Dextrose 5% 250 in Water 250 ml @ 250 mls/hr IV Q24H [facility] Rx#:[id number] Oral 220 1000 Output: Void Amount 325 Other: Meal Dinner Percent of Meal Consumed 100% Feeding Ability Independent Urine Appearance Clear Urine Color Dark Yellow OBJ DATA Labs 07/20/22 05:36 07/20/22 05:36 Labs: Abnormal Lab Results 07/20/22 07/20/22 07/19/22 05:36 05:36 08:36 WBC 21.0 H RBC 4.41 L Hgb 12.0 L Hct 38.6 L MCHC Immature Gran % (Auto) Neut % (Auto) 92.8 H Lymph % (Auto) 3.5 L Lymph # (Auto) 0.74 L [place] # (Auto) Seg Neutrophils % Lymphocytes % Immature Gran # 0.08 H Absolute Neutrophils 19.48 H POC VBG pCO2 at Temp POC VBG HCO3 POC VBG Total CO2 POC VBG Base Excess Carbon Dioxide 31 H POC Total CO2 Anion Gap 6.0 L Creatinine 0.6 L Glucose 121 H POC WB Ioniz Calcium Albumin 3.0 L Procalcitonin 0.11 H 07/19/22 07/18/22 07/18/22 08:36 22:57 22:39 WBC 19.4 H RBC Hgb 13.2 L Hct MCHC 30.6 L Immature Gran % (Auto) 0.6 H Neut % (Auto) 83.8 H Lymph % (Auto) 6.9 L Lymph # (Auto) 1.33 L [place] # (Auto) 1.63 H Seg Neutrophils % 94 H Lymphocytes % 3 L Immature Gran # 0.11 H Absolute Neutrophils 16.28 H POC VBG pCO2 at Temp POC VBG HCO3 POC VBG Total CO2 POC VBG Base Excess Carbon Dioxide POC Total CO2 33.0 H Anion Gap Creatinine Glucose POC WB Ioniz Calcium 1.11 L Albumin Procalcitonin 07/18/22 22:33 WBC RBC Hgb Hct MCHC Immature Gran % (Auto) Neut % (Auto) Lymph % (Auto) Lymph # (Auto) [place] # (Auto) Seg Neutrophils % Lymphocytes % Immature Gran # Absolute Neutrophils POC VBG pCO2 at Temp 56.7 H POC VBG HCO3 33.8 H POC VBG Total CO2 36.0 H POC VBG Base Excess 9.0 H* Carbon Dioxide POC Total CO2 Anion Gap Creatinine Glucose POC WB Ioniz Calcium Albumin Procalcitonin Meds: Medications Acetaminophen (Acetaminophen 325 Mg Tablet) 650 mg PO Q6HP PRN; Protocol PRN Reason: Per Pain Protocol/Fever > 101 Last Admin: 07/19/22 14:00 Dose: 650 mg Albuterol/Ipratropium (Ipratropium/Albuterol 3 Ml Ampul.Neb) 3 ml NEB Q4HP PRN PRN Reason: Shortness Of Breath Budesonide (Budesonide 0.5 Mg/2 Ml Ampul.Neb) 0.5 mg NEB Q12 NANCY Last Admin: 07/20/22 07:08 Dose: 0.5 mg Ceftriaxone Sodium (Ceftriaxone 1 Gm Vial) 1 gm IV Q24H NANCY Last Admin: 07/19/22 14:00 Dose: 1 gm Diphenhydramine HCl (Diphenhydramine 25 Mg Capsule) 25 - 50 mg PO BIDP PRN PRN Reason: Anxiety Last Admin: 07/19/22 21:56 Dose: 50 mg Docusate Sodium (Docusate Sodium 100 Mg Capsule) 100 mg PO BID [facility] Last Admin: 07/19/22 21:55 Dose: Not Given Enoxaparin Sodium (Enoxaparin 40 Mg/0.4 Ml Syringe) 40 mg SQ DAILY [facility] Last Admin: 07/19/22 08:55 Dose: 40 mg Guaifenesin (Guaifenesin/Dextromethorphan 5ml Ud Cup) 10 ml PO Q4HP PRN PRN Reason: Cough Last Admin: 07/19/22 21:59 Dose: 10 ml Potassium Chloride 40 meq/ (Dextrose) 520 mls @ 130 mls/hr IV UD PRN PRN Reason: Potassium < 3 Magnesium Sulfate (Magnesium Sulfate) 2 gm in 50 mls @ 50 mls/hr IV UD PRN PRN Reason: Magnesium </= 1.6 Azithromycin 500 mg/ Dextrose 250 mls @ 250 mls/hr IV Q24H [facility]; Protocol Stop: 07/20/22 16:59 Last Infusion: 07/19/22 16:45 Dose: Infused Ipratropium Fletcher (Ipratropium 2.5 Ml Ampul.Neb) 2.5 ml NEB Q6HRT [facility] Last Admin: 07/20/22 07:08 Dose: 2.5 ml Levalbuterol HCl (Levalbuterol 0.63 Mg/3 Ml Ampul.Neb) 0.63 mg NEB Q6HRT [facility] Last Admin: 07/20/22 07:08 Dose: 0.63 mg Lorazepam (Lorazepam 2 Mg/Ml Vial) 0.5 mg IV Q4-6HP PRN PRN Reason: ANXIETY/SEDATION Last Admin: 07/19/22 21:57 Dose: 0.5 mg Methylprednisolone Sodium Succinate (Methylprednisolone Sod Succ 125 Mg/2 Ml Vial) 80 mg IV Q8 [facility] Last Admin: 07/20/22 06:12 Dose: 80 mg Omeprazole (Omeprazole 20 Mg Capsule) 40 mg PO ACB [facility] Last Admin: 07/19/22 08:55 Dose: 40 mg Ondansetron HCl (Ondansetron 4 Mg/2 Ml Vial) 4 mg IV Q4HP PRN PRN Reason: Nausea And Vomiting Polyethylene Glycol (Polyethylene Glycol 3350 17 Gm Packet) 17 gm PO DAILYP PRN PRN Reason: Constipation Potassium Chloride (Potassium Chloride 20 Meq Tablet) 40 meq PO UD PRN PRN Reason: Potssium is 3-3.5 Potassium Chloride (Potassium Chloride 20 Meq Tablet) 40 meq PO UD PRN PRN Reason: Potassium < 3 Senna (Sennosides 1 Tablet) 2 tab PO DAILYP PRN PRN Reason: Constipation Sodium Chloride (0.9 % Sodium Chloride 10 Ml Syringe) 10 ml IV Q8 NANCY Last Admin: 07/20/22 06:07 Dose: 10 ml A/P Narrative A/P Narrative: A: #Acute on chronic hypoxic respiratory failure: 2/2 pulmonary fibrosis -Flu/RSV/Covid/strep neg -down to vapotherm 35lpm/60% -no reserve, desats extremely easy #Pulmonary fibrosis exacerbation: #COPD / Severe chronic pulmonary fibrosis / Bronchiectasis (10L O2@home): #Chronic leukocytosis: no bandemia, compounded by corticosteroids #GERD / Rico's esophagus: #h/o colon cancer #Malnourishment: #Anemia, chronic: #Anxiety: prn ativan #Extremely Guarded prognosis given severe pulmonary fibrosis and multiple hospitalizations #Goals of care: pt hoping to make it until September, but given recent history this may be unlikely, cont family/pt discussions -discussed with him possibly moving up wed date Plan -solumedrol (wean) -Oxygen supplementation wean as able, prn Bipap -Scheduled xopenex/ipratropium and prn nebs, add budesonide nebs -empiric abx, mrsa screen neg -chest imaging if worsens -monitor/trend electrolyte abnormalities -prn Ativan -dietary consult -PT and OT -f/u closely with pulmonology -ppx: Lovenox / ppi Code status: DNR/DNI Time Spent With Patient Time: Total time spent is greater than 50% in coordination of care (as documented) at patient's floor/unit and/or counseling patient: Subsequent: Total time with patient: 50 - 65 Minutes QUALITY VTE Deep Vein Thrombosis/Pulmonary Embolism Present on Admission: No
[2022-07-20] MEDS: OMEPRAZOLE 20 MG CAPSULE PO SCH (08:18)
[2022-07-20] MEDS: ACETAMINOPHEN 325 MG TABLET PO PRN ×3 (08:19→21:55)
[2022-07-20] MEDS: cefTRIAXone 1 GM VIAL IV SCH (09:49)
[2022-07-20] MEDS: ENOXAPARIN 40 MG/0.4 ML SYRINGE SQ SCH (09:49)
[2022-07-20] MEDS: LORazepam 2 MG/ML VIAL IV PRN ×3 (09:49→21:56)
[2022-07-20] MEDS: AZITHROMYCIN 500 MG in DEXTROSE 5% IN WATER 250 ML IV SCH (09:50)
[2022-07-20] MEDS: DOCUSATE SODIUM 100 MG CAPSULE PO SCH ×2 (09:50→21:54)
[2022-07-20] MEDS: Umeclidinium-Vilanterol [Anoro Ellipta] 62.5-25 mcg Inhaler INH SCH (10:13)
[2022-07-20] MEDS: diphenhydrAMINE 25 MG CAPSULE PO PRN ×2 (10:41→21:56)
[2022-07-20] MEDS: guaiFENesin/DEXTROMETHORPHAN 5ML UD CUP PO PRN (10:44)
--- NOTE | 2022-07-20 10:49 | EKG ---
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
[2022-07-20] MEDS ORDERED: METOPROLOL TARTRATE 5 MG/5 ML VIAL IV ONE (12:14)
[2022-07-20] MEDS: methylPREDNISolone SOD SUCC 40 MG/ML VIAL IV SCH ×2 (14:10→21:55)
[2022-07-21] MEDS: IPRATROPIUM 2.5 ML AMPUL.NEB NEB SCH ×4 (00:32→19:09)
[2022-07-21] MEDS: LEVALBUTEROL 0.63 MG/3 ML AMPUL.NEB NEB SCH ×4 (00:32→19:09)
[2022-07-21] MEDS: BUDESONIDE 0.5 MG/2 ML AMPUL.NEB NEB SCH ×3 (00:33→19:09)
[2022-07-21] MEDS: 0.9 % SODIUM CHLORIDE 10 ML SYRINGE IV SCH ×3 (05:07→21:46)
[2022-07-21] MEDS: methylPREDNISolone SOD SUCC 40 MG/ML VIAL IV SCH ×3 (05:07→21:58)
--- NOTE | 2022-07-21 07:20 | Internal Med Progress Note ---
SUBJECTIVE Subjective Patient information: Note initiated : 07/21/22 at 7:19 am Service Date, if different from initiated Date: [] Patient: Ned Fortune 57 y/o M admitted on 07/19/22 for Shortness of breath. Chief Complaint: [] Interval history: History of present illness: Mr. Fortune is a 57 year old M Presents back to the ED for increased shortness of breath. 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 He has been admitted 3 times since April. This will be his fourth admission at [facility]. He is also had multiple ED visits. He is on 10 L or more with several concentrators of oxygen at home. He he used just been hoping to make it to a wedding in September. Patient said he developed cold-like symptoms yesterday. He was just discharged a week and a half ago from the hospital. He states he developed a worsening cough productive of off-white thick sputum. Had increased shortness of breath. He was sent home last discharge with a second concentrator which broke and then he obtained another 1. Vital signs in the ED showed tachycardia which is common for him. He was tachypneic he was initially started on a nonrebreather but was requiring BiPAP. Patient dropped to 70% O2 at 1 point. In the ED. Patient was given Solu-Medrol and 25 breathing treatments. Empiric antibiotics started. Chest x-ray with worsening formation central portion left upper lobe. Patient found to have leukocytosis of 19,000 which is chronic for him. We will check manual differential. 07/20 Patient feeling a bit better today. Shortness of breath improving and mild cough. Now on Vapotherm from BiPAP yesterday.Continue weaning oxygen as able. Taper steroids. Nebulizers and home inhalers 07/21 Cough and shortness of breath and oxygen requirements improving. Wean corticosteroids. Continue weaning to his home regimen of oxygen. Review of Systems: Pertinent positives above. Denies headache/fever/chills/nausea/vomiting/chest or abdominal pain/diarrhea. PHYSICAL EXAM General: Alert, Awake, No acute Distress Eyes/N/T: EOMI, no scleral icterus, Head/Neck: neck supple, full ROM, CV: Tachycardic but regular, No murmurs, Pulm: fine Rales b/l L>R, no wheezing Abd: soft, nontender, +BS x4 Ext: no clubbing/cyanosis/edema, nontender Neuro: Alert, no focal deficits, moves all extremities, sensations intact b/l upper/lower Psychiatric: Skin: warm/dry, normal color Constitutional Vitals: Vital Signs Temp Pulse Resp BP Pulse Ox O2 Del Method O2 Flow Rate 98.0 F 105 H 18 105/78 100 Heated High Flow Nasal Cannula 15 07/21/22 04:00 07/21/22 05:57 07/21/22 05:57 07/21/22 05:57 07/21/22 05:57 07/21/22 05:57 07/21/22 05:57 Period Temp Pulse Resp BP Sys/Ashraf Pulse Ox O2 Del Method O2 Flow Rate Last 24 Hr 98 F-99.2 F 97-140 18-56 98-116/73-93 85-100 Heated High Flow Nasal Ca-Heated High Flow Nasal Ca 15-40 Intake and Output 07/20/22 07/21/22 07/21/22 19:59 03:59 11:59 Intake Total 1100 240 Output Total 600 500 200 Balance 500 -260 -200 Weight 58.649 kg Intake & Output: Intake & Output 07/20/22 07/21/22 07/21/22 19:59 03:59 11:59 Intake Total 1100 240 Output Total 600 500 200 Balance 500 -260 -200 Weight 58.649 kg Intake: IV 250 Zithromax 500 mg In Dextrose 5% 250 in Water 250 ml @ 250 mls/hr IV Q24H [facility] Rx#:[id number] Oral 850 240 Output: Urine Catheter Amount 300 Void Amount 300 500 200 Other: Meal Dinner Percent of Meal Consumed 100% Feeding Ability Independent Urine Appearance Clear Clear Clear Urine Color Dark Yellow Light Antonette Dark Yellow Urine Odor Normal Normal OBJ DATA Labs 07/20/22 05:36 07/20/22 05:36 Labs: Abnormal Lab Results 07/20/22 07/20/22 07/19/22 05:36 05:36 08:36 WBC 21.0 H RBC 4.41 L Hgb 12.0 L Hct 38.6 L MCHC Immature Gran % (Auto) Neut % (Auto) 92.8 H Lymph % (Auto) 3.5 L Lymph # (Auto) 0.74 L [place] # (Auto) Seg Neutrophils % Lymphocytes % Immature Gran # 0.08 H Absolute Neutrophils 19.48 H POC VBG pCO2 at Temp POC VBG HCO3 POC VBG Total CO2 POC VBG Base Excess Carbon Dioxide 31 H POC Total CO2 Anion Gap 6.0 L Creatinine 0.6 L Glucose 121 H POC WB Ioniz Calcium Albumin 3.0 L Procalcitonin 0.11 H 07/19/22 07/18/22 07/18/22 08:36 22:57 22:39 WBC 19.4 H RBC Hgb 13.2 L Hct MCHC 30.6 L Immature Gran % (Auto) 0.6 H Neut % (Auto) 83.8 H Lymph % (Auto) 6.9 L Lymph # (Auto) 1.33 L Sutton # (Auto) 1.63 H Seg Neutrophils % 94 H Lymphocytes % 3 L Immature Gran # 0.11 H Absolute Neutrophils 16.28 H POC VBG pCO2 at Temp POC VBG HCO3 POC VBG Total CO2 POC VBG Base Excess Carbon Dioxide POC Total CO2 33.0 H Anion Gap Creatinine Glucose POC WB Ioniz Calcium 1.11 L Albumin Procalcitonin 07/18/22 22:33 WBC RBC Hgb Hct MCHC Immature Gran % (Auto) Neut % (Auto) Lymph % (Auto) Lymph # (Auto) Sutton # (Auto) Seg Neutrophils % Lymphocytes % Immature Gran # Absolute Neutrophils POC VBG pCO2 at Temp 56.7 H POC VBG HCO3 33.8 H POC VBG Total CO2 36.0 H POC VBG Base Excess 9.0 H* Carbon Dioxide POC Total CO2 Anion Gap Creatinine Glucose POC WB Ioniz Calcium Albumin Procalcitonin Meds: Medications Acetaminophen (Acetaminophen 325 Mg Tablet) 650 mg PO Q6HP PRN; Protocol PRN Reason: Per Pain Protocol/Fever > 101 Last Admin: 07/20/22 21:55 Dose: 650 mg Albuterol/Ipratropium (Ipratropium/Albuterol 3 Ml Ampul.Neb) 3 ml NEB Q4HP PRN PRN Reason: Shortness Of Breath Budesonide (Budesonide 0.5 Mg/2 Ml Ampul.Neb) 0.5 mg NEB Q12 [facility] Last Admin: 07/21/22 00:33 Dose: Not Given Ceftriaxone Sodium (Ceftriaxone 1 Gm Vial) 1 gm IV Q24H [facility] Last Admin: 07/20/22 09:49 Dose: 1 gm Diphenhydramine HCl (Diphenhydramine 25 Mg Capsule) 25 - 50 mg PO BIDP PRN PRN Reason: Anxiety Last Admin: 07/20/22 21:56 Dose: 50 mg Docusate Sodium (Docusate Sodium 100 Mg Capsule) 100 mg PO BID [facility] Last Admin: 07/20/22 21:54 Dose: 100 mg Enoxaparin Sodium (Enoxaparin 40 Mg/0.4 Ml Syringe) 40 mg SQ DAILY [facility] Last Admin: 07/20/22 09:49 Dose: 40 mg Guaifenesin (Guaifenesin/Dextromethorphan 5ml Ud Cup) 10 ml PO Q4HP PRN PRN Reason: Cough Last Admin: 07/20/22 10:44 Dose: 10 ml Potassium Chloride 40 meq/ (Dextrose) 520 mls @ 130 mls/hr IV UD PRN PRN Reason: Potassium < 3 Magnesium Sulfate (Magnesium Sulfate) 2 gm in 50 mls @ 50 mls/hr IV UD PRN PRN Reason: Magnesium </= 1.6 Ipratropium [place] (Ipratropium 2.5 Ml Ampul.Neb) 2.5 ml NEB Q6HRT [facility] Last Admin: 07/21/22 00:32 Dose: 2.5 ml Levalbuterol HCl (Levalbuterol 0.63 Mg/3 Ml Ampul.Neb) 0.63 mg NEB Q6HRT [facility] Last Admin: 07/21/22 00:32 Dose: 0.63 mg Lorazepam (Lorazepam 2 Mg/Ml Vial) 0.5 mg IV Q4-6HP PRN PRN Reason: ANXIETY/SEDATION Last Admin: 07/20/22 21:56 Dose: 0.5 mg Methylprednisolone Sodium Succinate (Methylprednisolone Sod Succ 40 Mg/Ml Vial) 40 mg IV Q8 [facility] Last Admin: 07/21/22 05:07 Dose: 40 mg Omeprazole (Omeprazole 20 Mg Capsule) 40 mg PO ACB [facility] Last Admin: 07/20/22 08:18 Dose: 40 mg Ondansetron HCl (Ondansetron 4 Mg/2 Ml Vial) 4 mg IV Q4HP PRN PRN Reason: Nausea And Vomiting Umeclidinium- Vilanterol [Anoro Ellipta] 62.5-25 Mcg Inhaler 1 dose INH Q24H [facility] Last Admin: 07/20/22 10:13 Dose: 1 dose Polyethylene Glycol (Polyethylene Glycol 3350 17 Gm Packet) 17 gm PO DAILYP PRN PRN Reason: Constipation Potassium Chloride (Potassium Chloride 20 Meq Tablet) 40 meq PO UD PRN PRN Reason: Potssium is 3-3.5 Potassium Chloride (Potassium Chloride 20 Meq Tablet) 40 meq PO UD PRN PRN Reason: Potassium < 3 Senna (Sennosides 1 Tablet) 2 tab PO DAILYP PRN PRN Reason: Constipation Sodium Chloride (0.9 % Sodium Chloride 10 Ml Syringe) 10 ml IV Q8 [facility] Last Admin: 07/21/22 05:07 Dose: 10 ml A/P Narrative A/P Narrative: A: #Acute on chronic hypoxic respiratory failure: 2/2 pulmonary fibrosis -Flu/RSV/Covid/strep neg -on vapotherm 15lpm, 90% -no reserve, desats extremely easy #Pulmonary fibrosis exacerbation: #COPD / Severe chronic pulmonary fibrosis / Bronchiectasis (10L O2@home): #Chronic leukocytosis: no bandemia, compounded by corticosteroids #GERD / Rico's esophagus: #h/o colon cancer #Malnourishment: #Anemia, chronic: #Anxiety: prn ativan #Extremely Guarded prognosis given severe pulmonary fibrosis and multiple hospitalizations #Goals of care: pt hoping to make it until September, but given recent history this may be unlikely, cont family/pt discussions -discussed with him possibly moving up wed date Plan -solumedrol (wean) -Oxygen supplementation wean as able, prn Bipap -Scheduled xopenex/ipratropium and prn nebs, add budesonide nebs -empiric abx, mrsa screen neg -chest imaging if worsens -monitor/trend electrolyte abnormalities -prn Ativan -dietary consult -PT and OT -f/u closely with pulmonology -ppx: Lovenox / ppi Code status: DNR/DNI Time Spent With Patient Time: Total time spent is greater than 50% in coordination of care (as documented) at patient's floor/unit and/or counseling patient: Subsequent: Total time with patient: 35 - 49 minutes QUALITY VTE Deep Vein Thrombosis/Pulmonary Embolism Present on Admission: No
[2022-07-21] MEDS: OMEPRAZOLE 20 MG CAPSULE PO SCH (10:01)
[2022-07-21] MEDS: cefTRIAXone 1 GM VIAL IV SCH (10:01)
[2022-07-21] MEDS: ENOXAPARIN 40 MG/0.4 ML SYRINGE SQ SCH (10:02)
[2022-07-21] MEDS: DOCUSATE SODIUM 100 MG CAPSULE PO SCH ×2 (10:13→21:46)
[2022-07-21] MEDS: Umeclidinium-Vilanterol [Anoro Ellipta] 62.5-25 mcg Inhaler INH SCH (10:13)
[2022-07-21] MEDS: LORazepam 2 MG/ML VIAL IV PRN ×2 (12:25→18:34)
[2022-07-21] MEDS: diphenhydrAMINE 25 MG CAPSULE PO PRN (21:46)
[2022-07-22] MEDS: LEVALBUTEROL 0.63 MG/3 ML AMPUL.NEB NEB SCH ×4 (01:35→18:16)
[2022-07-22] MEDS: IPRATROPIUM 2.5 ML AMPUL.NEB NEB SCH ×4 (01:35→18:16)
[2022-07-22] MEDS: 0.9 % SODIUM CHLORIDE 10 ML SYRINGE IV SCH ×4 (05:15→22:44)
[2022-07-22] MEDS: BUDESONIDE 0.5 MG/2 ML AMPUL.NEB NEB SCH ×2 (07:47→18:16)
--- NOTE | 2022-07-22 07:48 | Internal Med Progress Note ---
SUBJECTIVE Subjective Patient information: Note initiated : 07/22/22 at 7:47 am Service Date, if different from initiated Date: [] Patient: Ned Fortune 57 y/o M admitted on 07/19/22 for Shortness of breath. Chief Complaint: [] Interval history: History of present illness: Mr. Fortune is a 57 year old M Presents back to the ED for increased shortness of breath. 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 He has been admitted 3 times since April. This will be his fourth admission at [facility]. He is also had multiple ED visits. He is on 10 L or more with several concentrators of oxygen at home. He he used just been hoping to make it to a wedding in September. Patient said he developed cold-like symptoms yesterday. He was just discharged a week and a half ago from the hospital. He states he developed a worsening cough productive of off-white thick sputum. Had increased shortness of breath. He was sent home last discharge with a second concentrator which broke and then he obtained another 1. Vital signs in the ED showed tachycardia which is common for him. He was tachypneic he was initially started on a nonrebreather but was requiring BiPAP. Patient dropped to 70% O2 at 1 point. In the ED. Patient was given Solu-Medrol and 25 breathing treatments. Empiric antibiotics started. Chest x-ray with worsening formation central portion left upper lobe. Patient found to have leukocytosis of 19,000 which is chronic for him. We will check manual differential. 07/20 Patient feeling a bit better today. Shortness of breath improving and mild cough. Now on Vapotherm from BiPAP yesterday.Continue weaning oxygen as able. Taper steroids. Nebulizers and home inhalers 07/21 Cough and shortness of breath and oxygen requirements improving. Wean corticosteroids. Continue weaning to his home regimen of oxygen. 07/22 No overnight event or new complaints. Chronic cough and shortness of breath. Weaning steroids. Oxygen is now on the wall at 13 to 15 L and will wean down to 10 Review of Systems: Pertinent positives above. Denies headache/fever/chills/nausea/vomiting/chest or abdominal pain/diarrhea. PHYSICAL EXAM General: Alert, Awake, No acute Distress Eyes/N/T: EOMI, no scleral icterus, Head/Neck: neck supple, full ROM, CV: Tachycardic but regular, No murmurs, Pulm: fine Rales b/l L>R, no wheezing Abd: soft, nontender, +BS x4 Ext: no clubbing/cyanosis/edema, nontender Neuro: Alert, no focal deficits, moves all extremities, sensations intact b/l upper/lower Psychiatric: Skin: warm/dry, normal color Constitutional Vitals: Vital Signs Temp Pulse Resp BP Pulse Ox O2 Del Method O2 Flow Rate 98.0 F 88 26 H 115/104 97 High Flow Nasal Cannula 13 07/22/22 04:00 07/22/22 06:01 07/22/22 06:01 07/22/22 06:01 07/22/22 06:01 07/22/22 06:01 07/22/22 06:01 Period Temp Pulse Resp BP Sys/Ashraf Pulse Ox O2 Del Method O2 Flow Rate Last 24 Hr 98.0 F-98.7 F 88-122 18-38 94-124/72-104 92-100 Heated High Flow Nasal Ca-High Flow Nasal Cannula, Bubble Humidifier 11 Intake and Output 07/21/22 07/22/22 07/22/22 19:59 03:59 11:59 Intake Total 960 Output Total 625 1000 275 Balance 335 -1000 -275 Weight 58.241 kg Intake & Output: Intake & Output 07/21/22 07/22/22 07/22/22 19:59 03:59 11:59 Intake Total 960 Output Total 625 1000 275 Balance 335 -1000 -275 Weight 58.241 kg Intake: Oral 960 Output: Void Amount 625 1000 275 Other: Meal Dinner Percent of Meal Consumed 100% Feeding Ability Independent Urine Appearance Clear Clear Clear Urine Color Dark Antonette Yellow Yellow Urine Odor Normal Normal Stool Size Large Stool Color Brown Stool Consistency Normal for Patient Formed Cylindrical # Bowel Movements 1 OBJ DATA Labs 07/20/22 05:36 07/20/22 05:36 Labs: Abnormal Lab Results 07/20/22 07/20/22 07/19/22 05:36 05:36 08:36 WBC 21.0 H RBC 4.41 L Hgb 12.0 L Hct 38.6 L Neut % (Auto) 92.8 H Lymph % (Auto) 3.5 L Lymph # (Auto) 0.74 L Seg Neutrophils % Lymphocytes % Immature Gran # 0.08 H Absolute Neutrophils 19.48 H Carbon Dioxide 31 H Anion Gap 6.0 L Creatinine 0.6 L Glucose 121 H Albumin 3.0 L Procalcitonin 0.11 H 07/19/22 08:36 WBC RBC Hgb Hct Neut % (Auto) Lymph % (Auto) Lymph # (Auto) Seg Neutrophils % 94 H Lymphocytes % 3 L Immature Gran # Absolute Neutrophils Carbon Dioxide Anion Gap Creatinine Glucose Albumin Procalcitonin Meds: Medications Acetaminophen (Acetaminophen 325 Mg Tablet) 650 mg PO Q6HP PRN; Protocol PRN Reason: Per Pain Protocol/Fever > 101 Last Admin: 07/20/22 21:55 Dose: 650 mg Albuterol/Ipratropium (Ipratropium/Albuterol 3 Ml Ampul.Neb) 3 ml NEB Q4HP PRN PRN Reason: Shortness Of Breath Budesonide (Budesonide 0.5 Mg/2 Ml Ampul.Neb) 0.5 mg NEB Q12 [facility] Last Admin: 07/21/22 19:09 Dose: 0.5 mg Ceftriaxone Sodium (Ceftriaxone 1 Gm Vial) 1 gm IV Q24H [facility] Last Admin: 07/21/22 10:01 Dose: 1 gm Diphenhydramine HCl (Diphenhydramine 25 Mg Capsule) 25 - 50 mg PO BIDP PRN PRN Reason: Anxiety Last Admin: 07/21/22 21:46 Dose: 50 mg Docusate Sodium (Docusate Sodium 100 Mg Capsule) 100 mg PO BID [facility] Last Admin: 07/21/22 21:46 Dose: 100 mg Enoxaparin Sodium (Enoxaparin 40 Mg/0.4 Ml Syringe) 40 mg SQ DAILY [facility] Last Admin: 07/21/22 10:02 Dose: 40 mg Guaifenesin (Guaifenesin/Dextromethorphan 5ml Ud Cup) 10 ml PO Q4HP PRN PRN Reason: Cough Last Admin: 07/20/22 10:44 Dose: 10 ml Potassium Chloride 40 meq/ (Dextrose) 520 mls @ 130 mls/hr IV UD PRN PRN Reason: Potassium < 3 Magnesium Sulfate (Magnesium Sulfate) 2 gm in 50 mls @ 50 mls/hr IV UD PRN PRN Reason: Magnesium </= 1.6 Ipratropium [place] (Ipratropium 2.5 Ml Ampul.Neb) 2.5 ml NEB Q6HRT [facility] Last Admin: 07/22/22 01:35 Dose: 2.5 ml Levalbuterol HCl (Levalbuterol 0.63 Mg/3 Ml Ampul.Neb) 0.63 mg NEB Q6HRT [facility] Last Admin: 07/22/22 01:35 Dose: 0.63 mg Lorazepam (Lorazepam 2 Mg/Ml Vial) 0.5 mg IV Q4-6HP PRN PRN Reason: ANXIETY/SEDATION Last Admin: 07/21/22 18:34 Dose: 0.5 mg Methylprednisolone Sodium Succinate (Methylprednisolone Sod Succ 40 Mg/Ml Vial) 40 mg IV BID [facility] Last Admin: 07/21/22 21:58 Dose: Not Given Omeprazole (Omeprazole 20 Mg Capsule) 40 mg PO ACB [facility] Last Admin: 07/21/22 10:01 Dose: 40 mg Ondansetron HCl (Ondansetron 4 Mg/2 Ml Vial) 4 mg IV Q4HP PRN PRN Reason: Nausea And Vomiting Umeclidinium- Vilanterol [Anoro Ellipta] 62.5-25 Mcg Inhaler 1 dose INH Q24H [facility] Last Admin: 07/21/22 10:13 Dose: 1 dose Polyethylene Glycol (Polyethylene Glycol 3350 17 Gm Packet) 17 gm PO DAILYP PRN PRN Reason: Constipation Potassium Chloride (Potassium Chloride 20 Meq Tablet) 40 meq PO UD PRN PRN Reason: Potssium is 3-3.5 Potassium Chloride (Potassium Chloride 20 Meq Tablet) 40 meq PO UD PRN PRN Reason: Potassium < 3 Senna (Sennosides 1 Tablet) 2 tab PO DAILYP PRN PRN Reason: Constipation Sodium Chloride (0.9 % Sodium Chloride 10 Ml Syringe) 10 ml IV Q8 [facility] Last Admin: 07/22/22 05:15 Dose: 10 ml A/P Narrative A/P Narrative: A: #Acute on chronic hypoxic respiratory failure: 2/2 pulmonary fibrosis -Flu/RSV/Covid/strep neg -on wall HFNC at 13-15 -no reserve, desats extremely easy #Pulmonary fibrosis exacerbation: #COPD / Severe chronic pulmonary fibrosis / Bronchiectasis (10L O2@home): #Chronic leukocytosis: no bandemia, compounded by corticosteroids #GERD / Rico's esophagus: #h/o colon cancer #Malnourishment: #Anemia, chronic: #Anxiety: prn ativan #Extremely Guarded prognosis given severe pulmonary fibrosis and multiple hospitalizations #Goals of care: pt hoping to make it until September, but given recent history this may be unlikely, cont family/pt discussions -discussed with him possibly moving up wed date Plan -solumedrol (wean) -Oxygen supplementation wean as able, prn Bipap -Scheduled xopenex/ipratropium and prn nebs, add budesonide nebs -empiric abx, mrsa screen neg -chest imaging if worsens -monitor/trend electrolyte abnormalities -prn Ativan -dietary consult -PT and OT -f/u closely with pulmonology -ppx: Lovenox / ppi Code status: DNR/DNI Time Spent With Patient Time: Total time spent is greater than 50% in coordination of care (as documented) at patient's floor/unit and/or counseling patient: Subsequent: Total time with patient: 35 - 49 minutes QUALITY VTE Deep Vein Thrombosis/Pulmonary Embolism Present on Admission: No
[2022-07-22] MEDS: OMEPRAZOLE 20 MG CAPSULE PO SCH (07:54)
[2022-07-22] MEDS: Umeclidinium-Vilanterol [Anoro Ellipta] 62.5-25 mcg Inhaler INH SCH (08:39)
[2022-07-22] MEDS: methylPREDNISolone SOD SUCC 40 MG/ML VIAL IV SCH (08:39)
[2022-07-22] MEDS: ENOXAPARIN 40 MG/0.4 ML SYRINGE SQ SCH (08:39)
[2022-07-22] MEDS: cefTRIAXone 1 GM VIAL IV SCH (08:39)
[2022-07-22] MEDS: DOCUSATE SODIUM 100 MG CAPSULE PO SCH ×2 (08:39→20:59)
[2022-07-22] MEDS: LORazepam 2 MG/ML VIAL IV PRN ×3 (10:34→22:43)
--- NOTE | 2022-07-22 11:28 | Discharge Summary ---
Discharge Provider Provider IMPORTANT FOLLOW-UP INFORMATION FOR PCP: Patient information: Note initiated : 07/22/22 at 11:25 am Service Date, if different from initiated Date: [] Patient: Ned Fortune 57 y/o M admitted on 07/19/22 for Shortness of breath. Chief Complaint: [] Date of admission: 07/19/22 00:27 Discharge date: 07/23/22 Primary care physician: HAILEE Multani Consults: 07/18/22 Consult to Physician [CONS] Stat Comment: Consulting Provider: Josiah Hughes Reason For Exam: Physician to Consult Consult to Physician [CONS] Stat Comment: SOB. Pulm Fibrosis. ? PN Consulting Provider: Josiah Hughes Reason For Exam: Physician to Consult COURSE Hospital Course Hospital course: History of present illness: Mr. Fortune is a 57 year old M Presents back to the ED for increased shortness of breath. 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 He has been admitted 3 times since April. This will be his fourth admission at [facility]. He is also had multiple ED visits. He is on 10 L or more with several concentrators of oxygen at home. He he used just been hoping to make it to a wedding in September. Patient said he developed cold-like symptoms yesterday. He was just discharged a week and a half ago from the hospital. He states he developed a worsening cough productive of off-white thick sputum. Had increased shortness of breath. He was sent home last discharge with a second concentrator which broke and then he obtained another 1. Vital signs in the ED showed tachycardia which is common for him. He was tach ypneic he was initially started on a nonrebreather but was requiring BiPAP. Patient dropped to 70% O2 at 1 point. In the ED. Patient was given Solu-Medrol and 25 breathing treatments. Empiric antibiotics started. Chest x-ray with worsening formation central portion left upper lobe. Patient found to have leukocytosis of 19,000 which is chronic for him. We will check manual differential. 07/20 Patient feeling a bit better today. Shortness of breath improving and mild cough. Now on Vapotherm from BiPAP yesterday.Continue weaning oxygen as able. Taper steroids. Nebulizers and home inhalers 07/21 Cough and shortness of breath and oxygen requirements improving. Wean corticosteroids. Continue weaning to his home regimen of oxygen. 07/22 No overnight event or new complaints. Chronic cough and shortness of breath. Weaning steroids. Oxygen is now on the wall at 13 to 15 L and will wean down to 10. 07/23 Feeling about the same. Titrating down to 10 at times but has to increase with any exertion. No reserve at all with pulmonary status Pt is doing well on 10 L with occasional need for temporary mild increase. Will prescribe trilogy device, he also has concentrators. Patient will inevitably return Sooner than later until he is made hospice/comfort care only, which he will not do until after his daughter's wedding day in September. A: #Acute on chronic hypoxic respiratory failure: 2/ pulmonary fibrosis #Pulmonary fibrosis exacerbation: #COPD / Severe chronic pulmonary fibrosis / Bronchiectasis (10L O2@home): #Chronic leukocytosis: no bandemia, compounded by corticosteroids #GERD / Rico's esophagus: #h/o colon cancer #Malnourishment: #Anemia, chronic: #Anxiety: prn ativan #Extremely Guarded prognosis given severe pulmonary fibrosis and multiple hospitalizations #Goals of care: pt hoping to make it until September, but given recent history this may be unlikely, cont family/pt discussions Plan -steroid taper -trilegy device -flonase -f/u pulmonolgy Discharge diagnosis: Acute on chronic hypoxic respite failure with pulmonary fibrosis Secondary discharge diagnosis: COPD bronchiectasis chronic leukocytosis GERD: History of colon cancer malnourishment chronic anemia anxiety Time Spent with Patient Time attestation: Total time spent providing and/or coordinating discharge services: Time spent: Greater than 30 minutes EXAM Constitutional Vitals: Temp Pulse Resp BP Pulse Ox O2 Del Method O2 Flow Rate 97.4 F 113 H 24 H 104/89 94 High Flow Nasal Cannula 11 07/22/22 08:02 07/22/22 10:00 07/22/22 10:17 07/22/22 10:00 07/22/22 10:17 07/22/22 10:17 07/22/22 10:17 Discharge Data Data Completed and Pending Labs on day of discharge: Preliminary micro results at discharge 07/18/22 22:54 Blood Culture - Preliminary Blood 07/18/22 22:49 Blood Culture - Preliminary Blood Discharge Plan Patient/Caregiver Discharge Instructions Activity: increase activity as tolerated Diet: Regular Diet Instructions: Prednisone (By mouth), Fluticasone (Into the nose), COPD (Chronic Obstructive Pulmonary Disease) (GEN), Palliative Care (GEN) Activity Restrictions/Additional Instructions: Follow-up with your gear cutter in 3 to 7 days. Activity as able, continue a regular diet. Continue with [facility] You have been given a hard copy precription to take to the pharmacy of your choice. This discharge packet is provided to you to help keep you informed about your care. We want to ensure you get everything you need when you go home. You will also be receiving a call from us in a few days to follow up with you and see how you are doing since your discharge. This gives us a chance to listen to any concerns you maybe experiencing since you were discharged or any additional needs you may have, as well as providing us feedback on your care experience. We strive to always provide excellent care and thank you for your feedback and for choosing [facility]. Prescriptions: New prednisone 10 mg tablet 40 mg PO QDAY Qty: 1 0RF Rx Instructions: Take 40mg once daily for 3 days then 30mg daily for 3 days then 20mg daily for 3 days then continue home regimen of 10mg daily. fluticasone propionate [24 Hour Allergy Relief] 50 mcg/actuation spray,suspension 2 spray intranasal QDAY Qty: 16 0RF Rx Instructions: administer into each nostril Continued ipratropium-albuterol 0.5 mg-3 mg(2.5 mg base)/3 mL solution for nebulization 3 ml inhalation Q4HRT PRN (Reason: Wheezing) Qty: 100 6RF (DME) Electric mobility scooter See Rx Instructions .Route .MEDSUPPLY Qty: 1 0RF Rx Instructions: Patient unable to ambulate due to severe lung disease. albuterol sulfate 90 mcg/actuation HFA aerosol inhaler 2 puff INHALATION Q4HP PRN (Reason: Shortness Of Breath) Qty: 8.5 2RF umeclidinium 62.5 mcg-vilanterol 25 mcg/actuation powdr for inhalation 62.5-25 mcg/actuation blister with device 1 inh INHALATION Q24H Qty: 60 1RF Rx Instructions: 340B plan. omeprazole 40 mg capsule,delayed release(DR/EC) 40 mg PO QDAY Qty: 90 1RF lorazepam [Ativan] 0.5 mg tablet 0.5 mg PO TID PRN (Reason: anxiety) Qty: 40 0RF Patient Comments: Had 2 does on 07/18/22 per family report cetirizine 10 mg capsule 10 mg PO QDAY Rx Instructions: qd diphenhydramine HCl [Benadryl Allergy] 25 mg tablet 25 - 50 mg PO BID PRN (Reason: Runny Nose) Patient Comments: told RN that he," had 50 mg in the am 07/18 and 50 mg in the pm 07/18, as his nose has been running quite a bit lately." Rx Instructions: Pt states takes at 1800 and 2009 budesonide 0.5 mg/2 mL suspension for nebulization 0.5 mg inhalation Q12 Qty: 60 4RF prednisone 10 mg tablet 10 mg PO QDAY Qty: 40 0RF Rx Instructions: Take prednisone 40 mg daily for 3 days followed by prednisone 30 mg daily for 3 days followed by prednisone 20 mg for 3 days then resume prednisone 10 mg daily until you follow-up with pulmonology for further dosing instructions. Follow Up Plan Follow up with: Liane Howell ARNP [Primary Care Provider] - (Follow up as needed) Patient Disposition: Home Health Service Prognosis: Critical Overall status at discharge: patient is progressing back to baseline Discharge Orders: Discharge Order (Routine); Ordered 07/23/22 Ordered By: Josiah Hughes [facility] VTE Deep Vein Thrombosis/Pulmonary Embolism Present on Admission: No
[2022-07-22] MEDS: ACETAMINOPHEN 325 MG TABLET PO PRN ×2 (15:37→20:59)
[2022-07-22] MEDS: BENZOCAINE/MENTHOL 1 LOZENGE PO PRN ×2 (17:20→20:59)
[2022-07-22] MEDS: predniSONE 20 MG TABLET PO SCH (17:20)
[2022-07-22] MEDS ORDERED: SODIUM CHLORIDE NASAL 1 SPRAY BOTTLE NAS PRN (18:05)
[2022-07-22] MEDS ORDERED: LORATADINE 10 MG TABLET PO PRN (18:06)
[2022-07-22] MEDS: diphenhydrAMINE 25 MG CAPSULE PO PRN (20:59)
[2022-07-23] MEDS: LEVALBUTEROL 0.63 MG/3 ML AMPUL.NEB NEB SCH ×3 (00:54→13:20)
[2022-07-23] MEDS: IPRATROPIUM 2.5 ML AMPUL.NEB NEB SCH ×3 (00:54→13:20)
[2022-07-23] MEDS: 0.9 % SODIUM CHLORIDE 10 ML SYRINGE IV SCH ×3 (02:45→12:27)
[2022-07-23] MEDS: LORazepam 2 MG/ML VIAL IV PRN ×4 (02:47→16:15)
[2022-07-23] MEDS: OMEPRAZOLE 20 MG CAPSULE PO SCH (07:03)
--- NOTE | 2022-07-23 07:38 | Internal Med Progress Note ---
SUBJECTIVE Subjective Patient information: Note initiated : 07/23/22 at 7:38 am Service Date, if different from initiated Date: [] Patient: Ned Fortune a 57 y/o M admitted on 07/19/22 for Shortness of breath. Chief Complaint: [] Interval history: History of present illness: Mr. Fortune is a 57 year old M Presents back to the ED for increased shortness of breath. 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 He has been admitted 3 times since April. This will be his fourth admission at [facility]. He is also had multiple ED visits. He is on 10 L or more with several concentrators of oxygen at home. He he used just been hoping to make it to a wedding in September. Patient said he developed cold-like symptoms yesterday. He was just discharged a week and a half ago from the hospital. He states he developed a worsening cough productive of off-white thick sputum. Had increased shortness of breath. He was sent home last discharge with a second concentrator which broke and then he obtained another 1. Vital signs in the ED showed tachycardia which is common for him. He was tachypneic he was initially started on a nonrebreather but was requiring BiPAP. Patient dropped to 70% O2 at 1 point. In the ED. Patient was given Solu-Medrol and 25 breathing treatments. Empiric antibiotics started. Chest x-ray with worsening formation central portion left upper lobe. Patient found to have leukocytosis of 19,000 which is chronic for him. We will check manual differential. 07/20 Patient feeling a bit better today. Shortness of breath improving and mild cough. Now on Vapotherm from BiPAP yesterday.Continue weaning oxygen as able. Taper steroids. Nebulizers and home inhalers 07/21 Cough and shortness of breath and oxygen requirements improving. Wean corticosteroids. Continue weaning to his home regimen of oxygen. 07/22 No overnight event or new complaints. Chronic cough and shortness of breath. Weaning steroids. Oxygen is now on the wall at 13 to 15 L and will wean down to 10 07/23 Feeling about the same. Titrating down to 10 at times but has to increase with any exertion. No reserve at all with pulmonary status Pt is doing well on 10 L with occasional need for temporary mild increase. Will prescribe trilogy device, he also has concentrators. Review of Systems: Pertinent positives above. Denies headache/fever/chills/nausea/vomiting/chest or abdominal pain/diarrhea. PHYSICAL EXAM General: Alert, Awake, No acute Distress Eyes/N/T: EOMI, no scleral icterus, Head/Neck: neck supple, full ROM, CV: Tachycardic but regular, No murmurs, Pulm: fine Rales b/l L>R, no wheezing Abd: soft, nontender, +BS x4 Ext: no clubbing/cyanosis/edema, nontender Neuro: Alert, no focal deficits, moves all extremities, sensations intact b/l upper/lower Psychiatric: Skin: warm/dry, normal color Constitutional Vitals: Vital Signs Temp Pulse Resp BP Pulse Ox O2 Del Method O2 Flow Rate 98.0 F 91 H 19 104/87 100 Heated High Flow Nasal Cannula 9 07/23/22 04:00 07/23/22 06:00 07/23/22 07:12 07/23/22 06:00 07/23/22 07:12 07/23/22 07:12 07/23/22 07:12 Period Temp Pulse Resp BP Sys/Ashraf Pulse Ox O2 Del Method O2 Flow Rate Last 24 Hr 97.4 F-98.9 F 88-128 17-41 104-129/74-118 78-100 Heated High Flow Nasal [id number] Mask 8-15 Intake and Output 07/22/22 07/23/22 07/23/22 19:59 03:59 11:59 Intake Total 800 360 Output Total 975 450 Balance -175 -90 Weight 55.429 kg Intake & Output: Intake & Output 07/22/22 07/23/22 07/23/22 19:59 03:59 11:59 Intake Total 800 360 Output Total 975 450 Balance -175 -90 Weight 55.429 kg Intake: Oral 800 360 Output: Void Amount 975 450 Other: Meal Lunch Dinner Percent of Meal Consumed 100% 100% Feeding Ability Independent Independent Urine Appearance Clear Clear Clear Urine Color Yellow Yellow Yellow Urine Odor Normal Normal OBJ DATA Labs 07/20/22 05:36 07/20/22 05:36 Meds: Medications Acetaminophen (Acetaminophen 325 Mg Tablet) 650 mg PO Q6HP PRN; Protocol PRN Reason: Per Pain Protocol/Fever > 101 Last Admin: 07/22/22 20:59 Dose: 650 mg Albuterol/Ipratropium (Ipratropium/Albuterol 3 Ml Ampul.Neb) 3 ml NEB Q4HP PRN PRN Reason: Shortness Of Breath Budesonide (Budesonide 0.5 Mg/2 Ml Ampul.Neb) 0.5 mg NEB Q12 [facility] Last Admin: 07/22/22 18:16 Dose: 0.5 mg Ceftriaxone Sodium (Ceftriaxone 1 Gm Vial) 1 gm IV Q24H [facility] Last Admin: 07/22/22 08:39 Dose: 1 gm Diphenhydramine HCl (Diphenhydramine 25 Mg Capsule) 25 - 50 mg PO BIDP PRN PRN Reason: Anxiety Last Admin: 07/22/22 20:59 Dose: 25 mg Docusate Sodium (Docusate Sodium 100 Mg Capsule) 100 mg PO BID [facility] Last Admin: 07/22/22 20:59 Dose: 100 mg Enoxaparin Sodium (Enoxaparin 40 Mg/0.4 Ml Syringe) 40 mg SQ DAILY [facility] Last Admin: 07/22/22 08:39 Dose: 40 mg Guaifenesin (Guaifenesin/Dextromethorphan 5ml Ud Cup) 10 ml PO Q4HP PRN PRN Reason: Cough Last Admin: 07/20/22 10:44 Dose: 10 ml Potassium Chloride 40 meq/ (Dextrose) 520 mls @ 130 mls/hr IV UD PRN PRN Reason: Potassium < 3 Magnesium Sulfate (Magnesium Sulfate) 2 gm in 50 mls @ 50 mls/hr IV UD PRN PRN Reason: Magnesium </= 1.6 Ipratropium [place] (Ipratropium 2.5 Ml Ampul.Neb) 2.5 ml NEB Q6HRT [facility] Last Admin: 07/23/22 00:54 Dose: 2.5 ml Levalbuterol HCl (Levalbuterol 0.63 Mg/3 Ml Ampul.Neb) 0.63 mg NEB Q6HRT [facility] Last Admin: 07/23/22 00:54 Dose: 0.63 mg Loratadine (Loratadine 10 Mg Tablet) 10 mg PO DAILYP PRN PRN Reason: Allergy Symptoms Lorazepam (Lorazepam 2 Mg/Ml Vial) 0.5 mg IV Q4-6HP PRN PRN Reason: ANXIETY/SEDATION Last Admin: 07/23/22 07:03 Dose: 0.5 mg Omeprazole (Omeprazole 20 Mg Capsule) 40 mg PO ACB [facility] Last Admin: 07/23/22 07:03 Dose: 40 mg Ondansetron HCl (Ondansetron 4 Mg/2 Ml Vial) 4 mg IV Q4HP PRN PRN Reason: Nausea And Vomiting Umeclidinium- Vilanterol [Anoro Ellipta] 62.5-25 Mcg Inhaler 1 dose INH Q24H [facility] Last Admin: 07/22/22 08:39 Dose: 1 dose Polyethylene Glycol (Polyethylene Glycol 3350 17 Gm Packet) 17 gm PO DAILYP PRN PRN Reason: Constipation Potassium Chloride (Potassium Chloride 20 Meq Tablet) 40 meq PO UD PRN PRN Reason: Potssium is 3-3.5 Potassium Chloride (Potassium Chloride 20 Meq Tablet) 40 meq PO UD PRN PRN Reason: Potassium < 3 Prednisone (Prednisone 20 Mg Tablet) 40 mg PO BIDCC [facility] Last Admin: 07/22/22 17:20 Dose: 40 mg Senna (Sennosides 1 Tablet) 2 tab PO DAILYP PRN PRN Reason: Constipation Sodium Chloride (0.9 % Sodium Chloride 10 Ml Syringe) 10 ml IV Q8 [facility] Last Admin: 07/23/22 06:17 Dose: 10 ml Sodium Chloride (Sodium Chloride Nasal 1 [place] Bottle) 2 spray LISBETH Q4HP PRN PRN Reason: Congestion Last Admin: 07/22/22 20:26 Dose: 2 spray Throat Lozenges (Benzocaine/Menthol 1 Lozenge) 1 lozenge PO PRN PRN PRN Reason: Sore Throat Last Admin: 07/22/22 20:59 Dose: 1 lozenge A/P Narrative A/P Narrative: A: #Acute on chronic hypoxic respiratory failure: 2/2 pulmonary fibrosis -Flu/RSV/Covid/strep neg -on wall HFNC at 9-15 -no reserve, desats extremely easy #Pulmonary fibrosis exacerbation: #COPD / Severe chronic pulmonary fibrosis / Bronchiectasis (10L O2@home): #Chronic leukocytosis: no bandemia, compounded by corticosteroids #GERD / Rico's esophagus: #h/o colon cancer #Malnourishment: #Anemia, chronic: #Anxiety: prn ativan #Extremely Guarded prognosis given severe pulmonary fibrosis and multiple hospitalizations #Goals of care: pt hoping to make it until September, but given recent history this may be unlikely, cont family/pt discussions -discussed with him possibly moving up date Plan: -prednisone (wean) -Oxygen supplementation wean as able, prn Bipap -Scheduled xopenex/ipratropium and prn nebs, add budesonide nebs -empiric abx, mrsa screen neg -chest imaging if worsens -monitor/trend electrolyte abnormalities -prn Ativan -dietary consult -PT and OT -f/u closely with pulmonology -We will prescribe Flonase as well as he has seasonal allergies which worsen his breathing. -ppx: Lovenox / ppi Code status: DNR/DNI Time Spent With Patient Time: Total time spent is greater than 50% in coordination of care (as documented) at patient's floor/unit and/or counseling patient: Subsequent: Total time with patient: 35 - 49 minutes QUALITY VTE Deep Vein Thrombosis/Pulmonary Embolism Present on Admission: No
[2022-07-23] MEDS: BUDESONIDE 0.5 MG/2 ML AMPUL.NEB NEB SCH (07:50)
[2022-07-23] MEDS: cefTRIAXone 1 GM VIAL IV SCH (08:38)
[2022-07-23] MEDS: predniSONE 20 MG TABLET PO SCH (08:38)
[2022-07-23] MEDS: ENOXAPARIN 40 MG/0.4 ML SYRINGE SQ SCH (08:38)
[2022-07-23] MEDS: Umeclidinium-Vilanterol [Anoro Ellipta] 62.5-25 mcg Inhaler INH SCH (09:01)
[2022-07-23] MEDS: DOCUSATE SODIUM 100 MG CAPSULE PO SCH (09:01)
== END 2022-07-23 16:35 | disposition home health service (06) | DRG 189 ==
LOC: ED 22:17 → ICU 07-19 00:27
PROVIDERS: ADMIT Internal Medicine; ATTEND Internal Medicine

== ENCOUNTER 2022-07-24 14:37 | Inpatient (IN) ==
[2022-07-24] MEDS ORDERED: LORazepam 2 MG/ML VIAL IV ONE ×2 (14:46→15:10)
[2022-07-24] MEDS ORDERED: ADENOSINE 3 MG/ML VIAL IV ONE (15:06)
[2022-07-24] MEDS ORDERED: ENOXAPARIN 60 MG/0.6 ML SYRINGE SQ ONE (15:23)
[2022-07-24 15:27] LABS: POC Calcium, Ionized 1.19 (1.16-1.32); POC Creatinine 0.9 (0.6-1.2)
[2022-07-24] MEDS: DILTIAZEM 25 MG/5 ML VIAL IV ONE (15:30)
--- NOTE | 2022-07-24 15:35 | XRay Report ---
CLINICAL INFORMATION: Dyspnea COMPARISON: 07/04/2022 and 07/18/2022 TECHNIQUE: Portable FINDINGS: The heart size, mediastinum and pulmonary vessels are unremarkable. Severe diffuse interstitial fibrosis with mild patchy airspace disease superimposed in both upper lungs again noted. The upper lung airspace disease is similar to the previous exam with perhaps some improvement in the left upper lung component.. There are no effusions. IMPRESSION: Severe diffuse idiopathic pulmonary fibrosis with patchy superimposed infiltrates in the upper lungs. Slight improvement left upper lung bone and since the previous exam Interpreted and Authenticated by: Pardeep Ruvalcaba 07/24/22
[2022-07-24] MEDS: DILTIAZEM 125 MG in DEXTROSE 5% IN WATER 100 ML IV SCH (15:50)
[2022-07-24] MEDS ORDERED: PROPOFOL 200 MG/20 ML VIAL IV ONE ×2 (15:58→15:59)
--- NOTE | 2022-07-24 15:58 | Emergency Department Note ---
HPI General Chief complaint: Shortness of Breath/Dyspnea Stated complaint: Irregular heart rate, low sats Time Seen by Provider: 07/24/22 14:40 Source: EMS Mode of arrival: EMS Limitations: other History of Present Illness HPI Narrative: Narrative: This 57-year-old male with a history of pulmonary fibrosis COPD and a recent pneumonia presents acutely dyspneic despite the fact that he is on 15 L of O2 at home. His states that he continued to desaturate whenever she tried to turn him down from 15 L as low as 54%. They deny any increase in sputum production fever sweats or chills or chest pains. On the monitor the patient had a 200 to 230/min rhythm and a pulse ox of 90% and a respiratory rate of 52. The patient was understandably distressed and we treated him with Ativan x2. Related Data Home Medications Medication Instructions Recorded Confirmed cetirizine 10 mg capsule 10 mg PO QDAY 08/05/19 07/19/22 diphenhydramine HCl 25 mg tablet 25 - 50 mg PO BID PRN Runny Nose 12/05/21 07/19/22 (Benadryl Allergy) Previous Rx's Medication Instructions Recorded ipratropium 0.5 mg-albuterol 3 mg 3 ml inhalation Q4HRT PRN Wheezing 01/21/22 (2.5 mg base)/3 mL nebulization #100 mL soln [employer] mobility scooter #1 ea 03/19/22 albuterol sulfate 90 mcg/actuation 2 puff inhalation Q4HP PRN 04/08/22 aerosol inhaler Shortness Of Breath #8.5 grams umeclidinium 62.5 mcg-vilanterol 1 inh inhalation Q24H #60 ea 05/15/22 25 mcg/actuation powdr for inhalation (Anoro Ellipta) omeprazole 40 mg capsule,delayed 40 mg PO QDAY #90 caps 06/25/22 release budesonide 0.5 mg/2 mL suspension 0.5 mg (2 mL) inhalation Q12 #60 mL 07/07/22 for nebulization prednisone 10 mg tablet 10 mg PO QDAY #40 tabs 07/07/22 lorazepam 0.5 mg tablet (Ativan) 0.5 mg PO TID PRN anxiety #40 tabs 07/18/22 prednisone 10 mg tablet 40 mg PO QDAY #1 tab 07/22/22 fluticasone propionate 50 2 spray intranasal QDAY #16 grams 07/23/22 mcg/actuation nasal spray,suspension (24 Hour Allergy Relief) Allergies Allergy/AdvReac Type Severity Reaction Status Date / Time naproxen AdvReac Intermediate purple Verified 07/24/22 14:41 spots on face Review of Systems ROS ROS Narrative: Narrative: All systems ED: reviewed and negative except as stated. [facility], [facility] Narrative Patient History Narrative: Narrative: Medical/Surgical/Family History All Active Problems (Updated 07/18/22 @ 23:56 by Brando Uribe MD) Respiratory failure, acute (Acute) Pulmonary infection (Acute) Pulmonary fibrosis (Acute) Pneumonia (Acute) Acute exacerbation of chronic obstructive pulmonary disease (Acute) Elevated brain natriuretic peptide (BNP) level (Acute) Acute and chronic respiratory failure with hypoxia (Acute) SOB (shortness of breath) (Acute) Chest pain (Acute) Anemia, normocytic normochromic (Acute) Acute and chronic respiratory failure with hypoxia (Acute) Muscular deconditioning (Chronic) SOB (shortness of breath) (Acute) Respiratory failure (Acute) Acute and chronic respiratory failure (Acute) CAP (community acquired pneumonia) (Acute) COPD exacerbation (Acute) H/O malignant neoplasm of colon (Chronic) Pulmonary fibrosis determined by high resolution computed tomography (Chronic) GERD with esophagitis (Chronic) Rico esophagus (Chronic) Bronchiectasis (Chronic) Hypoxemia (Chronic) Walking pneumonia (Chronic) SOB (shortness of breath) (Chronic) Tubulovillous adenoma (Chronic) Colon cancer (Chronic ~07/2014) Iron deficiency anemia (Chronic) Sinus congestion (Chronic) SOB (shortness of breath) on exertion (Chronic) COPD (chronic obstructive pulmonary disease) (Chronic) Eczema (Chronic) Elevated BP without diagnosis of hypertension (Chronic) Seasonal allergies (Chronic) Oxygen desaturation (Chronic) COVID-19 (Acute) Pneumonia due to COVID-19 virus (Acute) LLL pneumonia (Chronic) Medical History Rico esophagus Bronchiectasis Colon cancer (~07/2014) history of tubulovillous adenoma and colon carcinoma , removed 07/2014 COPD (chronic obstructive pulmonary disease) Eczema Elevated BP without diagnosis of hypertension GERD with esophagitis H/O malignant neoplasm of colon H/O: rheumatic fever Hypoxemia Iron deficiency anemia Muscular deconditioning Oxygen desaturation 11/26/2020: 75-88% on oxygen today in clinic Pulmonary fibrosis determined by high resolution computed tomography Seasonal allergies Tubulovillous adenoma Surgical History History of colonoscopy (08/11/16) abnormal History of repair of hiatal hernia (~04/2018) bleeding ulcers History of tonsillectomy and adenoidectomy (~1969) S/P Clara fundoplication (without gastrostomy tube) procedure Family History Father PNA (pneumonia) Prostate cancer Mother Kidney failure Grandfather Cancer Daughter Hemiplegic migraine Ovarian cyst Social History Smoking Status: Former smoker Alcohol Intake Frequency: holiday/special occasion only Substance Use: does not use Exam Narrative Narrative: Narrative: General emaciated thin but alert and oriented x3 answers short questions cogently. Pulmonary: Rapid respirations with fair air exchange without rales rhonchi or wheezes. CV: Rapid regular rate without murmurs clicks rubs or gallops. General Limitations: other Course Vital Signs Vital signs: Vital Signs Temperature 97.1 F 07/24/22 14:38 Pulse Rate 149 H 07/24/22 14:38 Respiratory Rate 50 H 07/24/22 14:38 Blood Pressure 89/69 07/24/22 14:38 Pulse Oximetry (%) 83 L 07/24/22 14:38 Oxygen Delivery Method Non-Rebreather Mask 07/24/22 14:38 Oxygen Flow Rate (L/min) 15 07/24/22 14:38 Temperature 97.1 F 07/24/22 14:38 Pulse Rate 110 H 07/24/22 15:16 Respiratory Rate 44 H 07/24/22 15:16 Blood Pressure 85/67 07/24/22 15:16 Pulse Oximetry (%) 92 07/24/22 15:16 Oxygen Delivery Method Heated High Flow Nasal Cannula 07/24/22 15:09 Oxygen Flow Rate (L/min) 40 07/24/22 15:09 [facility] MDM Narrative Medical decision making narrative: Narrative: Patient was initially treated with 2 mg of IV Ativan which relaxed him, but his rate continued at over 200. Patient's EKG returned with a diagnosis atrial for with rapid ventricular response. Diltiazem was given at 10 mg IV due to his pressure being fairly low, in the 90s. This slowed his heart rate down as low as 150, however it returned to approximately 180 within minutes. He was started on a diltiazem drip at 5 mg per hour. Patient's previous EKGs were all reviewed and all had a combination of a normal sinus and sinus tach, the last of which was approximately week ago. The process of cardioversion was discussed with both the patient and his including the possibility of a stroke or heart attack if a clot has started to form, and they both requested that it be done. Patient was given Lovenox 60 mg subcu. The patient's ora cavity was examined, and showed a Mallampati score of 2, with an ASA of 4. A time out was performed, verifying the patient, and the procedure. Pt was switched from a high flow mask to a nonrebreather and a nasal cannula, after which, his SAO2 dropped to the mid 80's. With 2 nurses in attendance, patient was given propofol 50 mg IV, and 200 synchronized J were administered; synchronized cardioversion was successful in returning him to sinus tach at a rate of 114, which is about his normal. His pressure was in the 90s after this, and he was given a bolus of 500 cc of fluid. Patient will be admitted for stabilization. Sepsis Sepsis Identified: No Lab Data 07/24/22 15:22 Labs: Lab Results 07/24/22 07/24/22 Range/Units 15:24 15:25 POC Hct 47.0 (41-55) POC Sodium 142 (133-145) POC Potassium 4.0 (3.3-5.1) POC Chloride 103 (96-108) POC Total CO2 31.0 H (22-30) POC BUN 31 H (6-20) POC Creatinine 0.9 (0.6-1.2) POC Glucose 179 H (70-105) POC WB Ioniz Calcium 1.19 (1.16-1.32) POC Troponin I < 0.02 (0.00-0.08) Discharge Plan Patient/Caregiver Discharge Instructions Follow up with: Liane Howell ARNP [Primary Care Provider] - Prescriptions: No Action ipratropium-albuterol 0.5 mg-3 mg(2.5 mg base)/3 mL solution for nebulization 3 ml inhalation Q4HRT PRN (Reason: Wheezing) Qty: 100 6RF (DME) Electric mobility scooter See Rx Instructions .Route .MEDSUPPLY Qty: 1 0RF Rx Instructions: Patient unable to ambulate due to severe lung disease. albuterol sulfate 90 mcg/actuation HFA aerosol inhaler 2 puff INHALATION Q4HP PRN (Reason: Shortness Of Breath) Qty: 8.5 2RF umeclidinium 62.5 mcg-vilanterol 25 mcg/actuation powdr for inhalation 62.5-25 mcg/actuation blister with device 1 inh INHALATION Q24H Qty: 60 1RF Rx Instructions: 340B plan. omeprazole 40 mg capsule,delayed release(DR/EC) 40 mg PO QDAY Qty: 90 1RF lorazepam [Ativan] 0.5 mg tablet 0.5 mg PO TID PRN (Reason: anxiety) Qty: 40 0RF Patient Comments: Had 2 does on 07/18/22 per family report cetirizine 10 mg capsule 10 mg PO QDAY Rx Instructions: qd diphenhydramine HCl [Benadryl Allergy] 25 mg tablet 25 - 50 mg PO BID PRN (Reason: Runny Nose) Patient Comments: told RN that he," had 50 mg in the am 07/18 and 50 mg in the pm 07/18, as his nose has been running quite a bit lately." Rx Instructions: Pt states takes at 1800 and 2009 budesonide 0.5 mg/2 mL suspension for nebulization 0.5 mg inhalation Q12 Qty: 60 4RF prednisone 10 mg tablet 10 mg PO QDAY Qty: 40 0RF Rx Instructions: Take prednisone 40 mg daily for 3 days followed by prednisone 30 mg daily for 3 days followed by prednisone 20 mg for 3 days then resume prednisone 10 mg daily until you follow-up with pulmonology for further dosing instructions. prednisone 10 mg tablet 40 mg PO QDAY Qty: 1 0RF Rx Instructions: Take 40mg once daily for 3 days then 30mg daily for 3 days then 20mg daily for 3 days then continue home regimen of 10mg daily. fluticasone propionate [24 Hour Allergy Relief] 50 mcg/actuation spray,suspension 2 spray intranasal QDAY Qty: 16 0RF Rx Instructions: administer into each nostril
[2022-07-24 16:05] LABS: Basophils # (Auto) 0.06 K/mcL (0.00-0.30); Basophils % (Auto) 0.2 % (0.0-2.0); Eosinophils # (Auto) 0 K/mcL (0.00-0.70); Eosinophils % (Auto) 0 % (0.0-7.0); Hematocrit 45.7 % (40.1-51.0); Hemoglobin 14.2 g/dL (13.7-17.5); Lymphocytes % (Auto) 3.1 % (15.5-49.0); Mean Cell Volume 89.1 fL (80.0-100.0); Mean Corpuscular HGB Conc 31.1 g/dL (31.0-36.0); Mean Platelet Volume 11.5 fL (8.8-12.5); Monocytes # (Auto) 0.66 K/mcL (0.10-0.90); Monocytes % (Auto) 2.5 % (1.0-12.0); Platelet Count 332 K/mcL (140-440); RBC 5.13 M/mcL (4.63-6.08); WBC 26.2 K/mcL (4.5-11.0)
[2022-07-24] MEDS ORDERED: AZITHROMYCIN 500 MG in DEXTROSE 5% IN WATER 250 ML IV ONE (17:04)
[2022-07-24] MEDS ORDERED: cefTRIAXone 1 GM VIAL IV ONE (17:04)
[2022-07-24] MEDS ORDERED: ACETAMINOPHEN 325 MG TABLET PO PRN (18:04)
[2022-07-24] MEDS ORDERED: ONDANSETRON 4 MG/2 ML VIAL IV PRN (18:04)
[2022-07-24] MEDS ORDERED: BUDESONIDE 0.5 MG/2 ML AMPUL.NEB NEB SCH (18:10)
[2022-07-24] MEDS ORDERED: IPRATROPIUM/ALBUTEROL 3 ML AMPUL.NEB NEB PRN (18:16)
--- NOTE | 2022-07-24 18:26 | Internal Med History&Physical ---
HPI History of Present Illness Patient information: Note initiated : 07/24/22 at 6:19 pm Service Date, if different from initiated Date: [] Patient: Ned Fortune 57 y/o M admitted on for Irregular heart rate, low sats. Chief Complaint: [] History of present illness: Mr. 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 Patient went home and was doing okay for a while, then his noted on pulse oximetry patient had tachycardia of 174 bpm, he was also very short of breath and was hypoxic down to 54% on 15 L, bumped up the oxygen to 15 L. In ER patient was found to be in A-fib with RVR, deputy register of deeds showed 200-230 bpm, E KG showed atrial fibrillation with ventricular response of 196 bpm. Patient was quite distressed, he was given Ativan. Patient was given IV diltiazem bolus and started on IV diltiazem drip. Patient underwent emergent cardioversion which was successful in returning him to sinus tachycardia with a heart rate of around 114 bpm which is his baseline. He remains on diltiazem gtt. Patient admitted to ICU. Review of system No fever, no chills Shortness of breath, minimal cough, no sputum production, tachypnea, work of breathing No nausea, no vomiting No chest pain, some palpitations No frequent urinary nation, no dysuria No sweating No skin rashes Denies depression PHYSICAL EXAM General: Alert, awake, mild distress, improving Eyes/N/T: EOMI, no scleral icterus, Head/Neck: neck supple, full ROM, CV: Sinus tachycardia, heart rate 114-116, systolic murmur over precordium Pulm: Dry crackles mainly on right side, shallow breathing, on supplemental oxygen Abd: soft, nontender, +BS x4 Ext: no clubbing/cyanosis/edema, nontender Neuro: Alert, no focal deficits, moves all extremities, sensations intact b/l upper/lower Psychiatric: Appropriate mood and affect Skin: warm/dry, normal color Assessment and plan Atrial fibrillation with RVR, new onset. Patient is status post successful electrocardioversion and now back to sinus rhythm. He remains on IV diltiazem drip. We will plan to transition him to p.o. diltiazem drip if blood pressure allows. Echocardiogram ordered. [id number] 2 score is 0. Anticoagulation not warranted. Thyroid profile and serum magnesium ordered. Acute on chronic hypoxic respiratory failure, patient was hypoxic to 54% on 15 L. Now improving and back to baseline. We will continue with nebulization therapy Pulmonary fibrosis exacerbation, continue prednisone taper, nebs Severe COPD/end-stage COPD, continue nebulization and steroids GERD, continue PPI Malnourishment, secondary to end-stage pulmonary disease. Improved protein intake Anemia, chronic, no indication for transfusion Anxiety, as needed Ativan Prognosis, extremely guarded considering severe pulmonary fibrosis, multiple hospitalization Goals of care. Patient is DNR/DNI. Patient is hoping to make it until September 2022 for his daughters wedding. However this may be unlikely considering his ongoin g deterioration. Critical care time of 45 minutes Portions of this chart may have been created with [email or web address] voice recognition software. Occasional wrong-word or sound-like substitutions may have occurred due to the inherent limitations of voice recognition software. Please read the chart carefully and recognize, using context, where the substitutions have oc curred. 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) Pneumonia (Acute) Acute exacerbation of chronic obstructive pulmonary disease (Acute) Elevated brain natriuretic peptide (BNP) level (Acute) Acute and chronic respiratory failure with hypoxia (Acute) SOB (shortness of breath) (Acute) Chest pain (Acute) Anemia, normocytic normochromic (Acute) Acute and chronic respiratory failure with hypoxia (Acute) Muscular deconditioning (Chronic) SOB (shortness of breath) (Acute) Respiratory failure (Acute) Acute and chronic respiratory failure (Acute) CAP (community acquired pneumonia) (Acute) COPD exacerbation (Acute) H/O malignant neoplasm of colon (Chronic) Pulmonary fibrosis determined by high resolution computed tomography (Chronic) GERD with esophagitis (Chronic) Rico esophagus (Chronic) Bronchiectasis (Chronic) Hypoxemia (Chronic) Walking pneumonia (Chronic) SOB (shortness of breath) (Chronic) Tubulovillous adenoma (Chronic) Colon cancer (Chronic ~07/2014) Iron deficiency anemia (Chronic) Sinus congestion (Chronic) SOB (shortness of breath) on exertion (Chronic) COPD (chronic obstructive pulmonary disease) (Chronic) Eczema (Chronic) Elevated BP without diagnosis of hypertension (Chronic) Seasonal allergies (Chronic) Oxygen desaturation (Chronic) COVID-19 (Acute) Pneumonia due to COVID-19 virus (Acute) LLL pneumonia (Chronic) Medical History Rico esophagus Bronchiectasis Colon cancer (~07/2014) history of tubulovillous adenoma and colon carcinoma , removed 07/2014 COPD (chronic obstructive pulmonary disease) Eczema Elevated BP without diagnosis of hypertension GERD with esophagitis H/O malignant neoplasm of colon H/O: rheumatic fever Hypoxemia Iron deficiency anemia Muscular deconditioning Oxygen desaturation 11/26/2020: 75-88% on oxygen today in clinic Pulmonary fibrosis determined by high resolution computed tomography Seasonal allergies Tubulovillous adenoma Surgical History History of colonoscopy (08/11/16) abnormal History of repair of hiatal hernia (~04/2018) bleeding ulcers History of tonsillectomy and adenoidectomy (~1969) S/P Clara fundoplication (without gastrostomy tube) procedure Family History Father PNA (pneumonia) Prostate cancer Mother Kidney failure Grandfather Cancer Daughter Hemiplegic migraine Ovarian cyst Social History household members: spouse and family housing: house marital status: occupational status: retired 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 Has 2 children physical activity: none smoking status: Former smoker quit date: 05/04/98 pack-years: 20 alcohol intake frequency: holiday/special occasion only substance use type: does not use MEDS/ALLERGIES Home Medications and Allergies Home Medications Medication Instructions Recorded Confirmed Type cetirizine 10 mg capsule 10 mg PO QDAY 08/05/19 07/19/22 History diphenhydramine HCl 25 mg tablet 25 - 50 mg PO BID PRN Runny Nose 12/05/21 07/19/22 History (Benadryl Allergy) ipratropium 0.5 mg-albuterol 3 mg 3 ml inhalation Q4HRT PRN Wheezing 01/21/22 07/19/22 Rx (2.5 mg base)/3 mL nebulization #100 mL soln [employer] mobility scooter #1 ea 03/19/22 07/19/22 Rx albuterol sulfate 90 mcg/actuation 2 puff inhalation Q4HP PRN 04/08/22 07/19/22 Rx aerosol inhaler Shortness Of Breath #8.5 grams umeclidinium 62.5 mcg-vilanterol 1 inh inhalation Q24H #60 ea 05/15/22 07/19/22 Rx 25 mcg/actuation powdr for inhalation (Anoro Ellipta) omeprazole 40 mg capsule,delayed 40 mg PO QDAY #90 caps 06/25/22 07/19/22 Rx release budesonide 0.5 mg/2 mL suspension 0.5 mg (2 mL) inhalation Q12 #60 mL 07/07/22 07/19/22 Rx for nebulization prednisone 10 mg tablet 10 mg PO QDAY #40 tabs 07/07/22 07/19/22 Rx lorazepam 0.5 mg tablet (Ativan) 0.5 mg PO TID PRN anxiety #40 tabs 07/18/22 07/19/22 Rx prednisone 10 mg tablet 40 mg PO QDAY #1 tab 07/22/22 Rx fluticasone propionate 50 2 spray intranasal QDAY #16 grams 07/23/22 Rx mcg/actuation nasal spray,suspension (24 Hour Allergy Relief) Allergies Allergy/AdvReac Type Severity Reaction Status Date / Time naproxen AdvReac Intermediate purple Verified 07/24/22 14:41 spots on face EXAM Constitutional Vitals: Temp Pulse Resp BP Pulse Ox O2 Del Method O2 Flow Rate 97.1 F 105 H 21 94/78 96 Heated High Flow Nasal Cannula 40 07/24/22 14:38 07/24/22 18:18 07/24/22 18:18 07/24/22 18:18 07/24/22 18:18 07/24/22 15:09 07/24/22 15:09 DATA Data Completed and Pending Labs: Labs from last 24 hours 07/24/22 07/24/22 07/24/22 15:25 15:24 15:22 WBC RBC Hgb Hct POC Hct 47.0 MCV MCH MCHC RDW Plt Count MPV Immature Gran % (Auto) Neut % (Auto) Lymph % (Auto) [place] % (Auto) Eos % (Auto) Baso % (Auto) Lymph # (Auto) [place] # (Auto) Eos # (Auto) Baso # (Auto) Immature Gran # Absolute Neutrophils VBG Lactic Acid POC Sodium 142 POC Potassium 4.0 POC Chloride 103 POC Total CO2 31.0 H POC BUN 31 H POC Creatinine 0.9 POC Glucose 179 H POC WB Ioniz Calcium 1.19 Magnesium Procalcitonin TSH Free T4 Thyroxine (T4) Free T3 pg/mL Total T3 Pending POC Troponin I < 0.02 07/24/22 07/24/22 07/24/22 15:22 15:22 15:22 WBC RBC Hgb Hct POC Hct MCV MCH MCHC RDW Plt Count MPV Immature Gran % (Auto) Neut % (Auto) Lymph % (Auto) [place] % (Auto) Eos % (Auto) Baso % (Auto) Lymph # (Auto) [place] # (Auto) Eos # (Auto) Baso # (Auto) Immature Gran # Absolute Neutrophils VBG Lactic Acid POC Sodium POC Potassium POC Chloride POC Total CO2 POC BUN POC Creatinine POC Glucose POC WB Ioniz Calcium Magnesium Pending Procalcitonin 0.12 H TSH Pending Free T4 Pending Thyroxine (T4) Pending Free T3 pg/mL Pending Total T3 POC Troponin I 07/24/22 07/24/22 15:22 15:22 WBC 26.2 H RBC 5.13 Hgb 14.2 Hct 45.7 POC Hct MCV 89.1 MCH 27.7 MCHC 31.1 RDW 14.0 Plt Count 332 MPV 11.5 Immature Gran % (Auto) 1.2 H Neut % (Auto) 93.0 H Lymph % (Auto) 3.1 L [place] % (Auto) 2.5 Eos % (Auto) 0 Baso % (Auto) 0.2 Lymph # (Auto) 0.80 L [place] # (Auto) 0.66 Eos # (Auto) 0 Baso # (Auto) 0.06 Immature Gran # 0.32 H Absolute Neutrophils 24.37 H VBG Lactic Acid 2.1 H POC Sodium POC Potassium POC Chloride POC Total CO2 POC BUN POC Creatinine POC Glucose POC WB Ioniz Calcium Magnesium Procalcitonin TSH Free T4 Thyroxine (T4) Free T3 pg/mL Total T3 POC Troponin I A/P Time Spent With Patient Time: Total time spent is greater than 50% in coordination of care (as documented) at patient's floor/unit and/or counseling patient:
[2022-07-24 18:52] LABS: Free T3 1.9 pg/mL (2.0-4.4); Free T4 (Free Thyroxine) 1.12 ng/dL (0.93-1.70); T4 (Thyroxine) 5.5 ug/dl (5.0-12.0); Thyroid Stimulating Hormone 0.78 uIU/mL (0.27-5.01)
[2022-07-24] MEDS ORDERED: BUDESONIDE 0.5 MG/2 ML AMPUL.NEB ONE (19:24)
[2022-07-24] MEDS ORDERED: LEVALBUTEROL 0.63 MG/3 ML AMPUL.NEB ONE (19:25)
[2022-07-24] MEDS: BUDESONIDE 0.5 MG/2 ML AMPUL.NEB NEB SCH ×2 (19:26→21:10)
[2022-07-24] MEDS: LEVALBUTEROL 0.63 MG/3 ML AMPUL.NEB NEB SCH ×2 (19:26→21:10)
[2022-07-24] MEDS: 0.9 % SODIUM CHLORIDE 10 ML SYRINGE IV SCH (22:00)
[2022-07-24] MEDS: LORazepam 0.5 MG TABLET PO PRN (23:08)
[2022-07-25] MEDS: DILTIAZEM 125 MG in DEXTROSE 5% IN WATER 100 ML IV SCH ×2 (03:53→15:37)
[2022-07-25] MEDS: LORazepam 0.5 MG TABLET PO PRN ×3 (04:59→21:54)
[2022-07-25] MEDS: 0.9 % SODIUM CHLORIDE 10 ML SYRINGE IV SCH ×3 (05:53→22:00)
[2022-07-25] MEDS: PANTOPRAZOLE 40 MG TABLET PO SCH (07:37)
[2022-07-25] MEDS: predniSONE 10 MG TABLET PO SCH (08:50)
[2022-07-25] MEDS: Umeclidinium-Vilanterol [Anoro Ellipta] 62.5-25 INH SCH (08:50)
[2022-07-25] MEDS: ENOXAPARIN 30 MG/0.3 ML SYRINGE SQ SCH (08:50)
[2022-07-25] MEDS: FLUTICASONE PROPIONATE SPRAY.NAS NS SCH (08:50)
[2022-07-25] MEDS: CETIRIZINE 10 MG TABLET PO SCH (08:55)
[2022-07-25] MEDS ORDERED: predniSONE 10 MG TABLET PO SCH (09:00)
[2022-07-25] MEDS ORDERED: NON FORMULARY MEDICATION 1 DOSE MISCELL (Omeprazole 40 mg capsule,delayed release(DR/EC)) PO SCH (09:00)
[2022-07-25] MEDS: LEVALBUTEROL 0.63 MG/3 ML AMPUL.NEB NEB SCH ×2 (09:22→20:08)
[2022-07-25] MEDS: BUDESONIDE 0.5 MG/2 ML AMPUL.NEB NEB SCH ×2 (09:23→20:08)
[2022-07-25] MEDS ORDERED: LORazepam 0.5 MG TABLET PO SCH (10:30)
[2022-07-25] MEDS: DILTIAZEM 30 MG TABLET PO SCH ×3 (10:32→21:50)
--- NOTE | 2022-07-25 10:57 | EKG ---
[facility] Test Date: 2022-07-24 Pat Name: Ned Fortune Department: ED Room: Gender: Male Insecticide Sprayer: LR : 1965 Requested By: Stevie Cristobal Order Number: [id number] Reading MD: Pardeep Beal M.D. Measurements Intervals [place] Rate: 117 P: -4 [place]: 152 QRS: 90 QRSD: 85 T: -45 QT: 330 QTc: 459 Interpretive Statements Sinus tachycardia Borderline right axis deviation Repol abnrm suggests ischemia, diffuse leads Electronically Signed On 07-25-2022 10:57:38 PDT by Pardeep Beal M.D. /[email or web address]/[id number]
--- NOTE | 2022-07-25 10:57 | EKG ---
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 Measurements Intervals [place] Rate: 196 P: [place]: QRS: 72 QRSD: 68 T: -44 QT: 256 QTc: 470 Interpretive Statements Atrial fibrillation with rapid V-rate Repolarization abnormality, prob rate related Electronically Signed On 07-25-2022 10:57:11 PDT by Pardeep Beal M.D. /store/[email or web address]/[id number]
--- NOTE | 2022-07-25 15:57 | Internal Med Progress Note ---
SUBJECTIVE Subjective Patient information: Note initiated : 07/25/22 at 3:47 pm Service Date, if different from initiated Date: [] Patient: Ned Fortune 57 y/o M admitted on 07/24/22 for Irregular heart rate, low sats. Chief Complaint: [] Additional PMFSH (Level 3 Only): Mr. 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 Patient went home and was doing okay for a while, then his noted on pulse oximetry patient had tachycardia of 174 bpm, he was also very short of breath and was hypoxic down to 54% on 15 L, bumped up the oxygen to 15 L. In ER patient was found to be in A-fib with RVR, ekg monitor showed 200-230 bpm, EKG showed atrial fibrillation with ventricular response of 196 bpm. Patient was quite distressed, he was given Ativan. Patient was given IV diltiazem bolus and started on IV diltiazem drip. Patient underwent emergent cardioversion which was successful in returning him to sinus tachycardia with a heart rate of around 114 bpm, diltiazem gtt. was continued and patient was admitted to ICU. Patient diltiazem gtt. was held due to softer blood pressure overnight. Blood pressure is now improving. Patient has poor breathing status at baseline. Will avoid beta-christianne. We will start him on p.o. diltiazem and monitor him closely for drop in blood pressure. Patient also complaining of chest wall pain for which she will be prescribed tramadol. Echocardiogram pending. Review of system No fever, no chills, feels weak Less short of breath, minimal cough No nausea, no vomiting No chest pain, some palpitations No frequent urinary nation, no dysuria No sweating No skin rashes Denies depression PHYSICAL EXAM General: Alert, awake, appears quite deconditioned Eyes/N/T: EOMI, no scleral icterus, Head/Neck: neck supple, full ROM, CV: S1 and S2, tachycardia with heart rate 110. Pulm: Dry crackles mainly on right side, shallow breathing, on supplemental oxygen Abd: soft, nontender, +BS x4 Ext: no clubbing/cyanosis/edema, nontender Neuro: Alert, no focal deficits, moves all extremities, sensations intact b/l upper/lower Psychiatric: Appropriate mood and affect Skin: warm/dry, normal color Assessment and plan Atrial fibrillation with RVR, new onset. Patient is status post successful electrocardioversion and back to sinus rhythm. Currently off diltiazem gtt. Start Cardizem 30 mg p.o. 3 times daily and monitor blood pressure closely. Echo is pending. [id number] 2 score is 0. Anticoagulation not warranted. TSH within range. Mg >2 Acute on chronic hypoxic respiratory failure, patient was hypoxic to 54% on 15 L. Now improving and back to baseline. We will continue with nebulization therapy Pulmonary fibrosis exacerbation, continue prednisone taper, nebs Severe COPD/end-stage COPD, continue nebulization and steroids GERD, continue PPI Malnourishment, secondary to end-stage pulmonary disease. Improved protein intake Anemia, chronic, no indication for transfusion Anxiety, as needed Ativan Prognosis, extremely guarded considering severe pulmonary fibrosis, multiple hospitalization Goals of care. Patient is DNR/DNI. Patient is hoping to make it until September 2022 for his daughters wedding. However this may be unlikely considering his ongoing deterioration. Critical care time of 45 minutes Portions of this chart may have been created with [employer] voice recognition software. Occasional wrong-word or sound-like substitutions may have occurred due to the inherent limitations of voice recognition software. Please read the chart carefully and recognize, using context, where the substitutions have occurred. Constitutional Vitals: Vital Signs Temp Pulse Resp BP Pulse Ox O2 Del Method O2 Flow Rate 98.2 F 122 H 38 H 101/84 92 High Flow Nasal Cannula 25 07/25/22 12:00 07/25/22 15:24 07/25/22 15:24 07/25/22 14:01 07/25/22 15:24 07/25/22 15:24 07/25/22 15:24 Period Temp Pulse Resp BP Sys/Ashraf Pulse Ox O2 Del Method O2 Flow Rate Last 24 Hr 97.1 F-98.4 F 51-124 14-49 82-113/58-88 84-100 Heated High Flow Nasal Ca-High Flow Nasal Cannula, Bubble Humidifier 10-35 Intake and Output 07/25/22 07/25/22 07/25/22 03:59 11:59 19:59 Intake Total 480 Output Total 525 1000 Balance -525 -520 Weight 48.489 kg 48.489 kg Patient Weight 07/26/22 03:59 Weight 48.489 kg Intake & Output: Intake & Output 07/25/22 07/25/22 07/25/22 03:59 11:59 19:59 Intake Total 480 Output Total 525 1000 Balance -525 -520 Weight 48.489 kg 48.489 kg Intake: Oral 480 Output: Void Amount 525 1000 Other: Meal Breakfast Percent of Meal Consumed 100% Urine Appearance Clear Clear Urine Color Yellow Pale OBJ DATA Labs 07/24/22 15:22 Labs: Abnormal Lab Results 07/24/22 07/24/22 07/24/22 15:24 15:22 15:22 WBC Immature Gran % (Auto) Neut % (Auto) Lymph % (Auto) Lymph # (Auto) Immature Gran # Absolute Neutrophils VBG Lactic Acid POC Total CO2 31.0 H POC BUN 31 H POC Glucose 179 H Procalcitonin 0.12 H Free T3 pg/mL 1.9 L 07/24/22 07/24/22 15:22 15:22 WBC 26.2 H Immature Gran % (Auto) 1.2 H Neut % (Auto) 93.0 H Lymph % (Auto) 3.1 L Lymph # (Auto) 0.80 L Immature Gran # 0.32 H Absolute Neutrophils 24.37 H VBG Lactic Acid 2.1 H POC Total CO2 POC BUN POC Glucose Procalcitonin Free T3 pg/mL Meds: Medications Acetaminophen (Acetaminophen 325 Mg Tablet) 650 mg PO Q4-6HP PRN; Protocol PRN Reason: Per Pain Protocol/Fever > 101 Last Admin: 07/25/22 13:40 Dose: 650 mg Albuterol/Ipratropium (Ipratropium/Albuterol 3 Ml Ampul.Neb) 3 ml NEB Q4HRT PRN PRN Reason: Wheezing Budesonide (Budesonide 0.5 Mg/2 Ml Ampul.Neb) 0.5 mg NEB Q12 [facility]ANCY Last Admin: 07/25/22 09:23 Dose: 0.5 mg Cetirizine HCl (Cetirizine 10 Mg Tablet) 10 mg PO QDAY [facility] Last Admin: 07/25/22 08:55 Dose: 10 mg Diltiazem HCl (Diltiazem 30 Mg Tablet) 30 mg PO TID [facility] Last Admin: 07/25/22 10:32 Dose: 30 mg Diphenhydramine HCl (Diphenhydramine 25 Mg Capsule) 25 mg PO BIDP PRN PRN Reason: Runny Nose Enoxaparin Sodium (Enoxaparin 30 Mg/0.3 Ml Syringe) 30 mg SQ DAILY [facility] Last Admin: 07/25/22 08:50 Dose: 30 mg Fluticasone Propionate (Fluticasone Propionate [place].Hesham) 2 spray NS QDAY [facility] Last Admin: 07/25/22 08:50 Dose: Not Given Diltiazem HCl 125 mg/ Dextrose 125 mls @ 5 mls/hr IV Q12H [facility]; Protocol Last Admin: 07/25/22 15:37 Dose: Not Given Levalbuterol HCl (Levalbuterol 0.63 Mg/3 Ml Ampul.Neb) 0.63 mg NEB BID [facility] Last Admin: 07/25/22 09:22 Dose: 0.63 mg Lorazepam (Lorazepam 0.5 Mg Tablet) 0.5 mg PO QIDP PRN PRN Reason: Anxiety Ondansetron HCl (Ondansetron 4 Mg/2 Ml Vial) 4 mg IV Q4-6HP PRN; Protocol PRN Reason: Nausea And Vomiting Pantoprazole Sodium (Pantoprazole 40 Mg Tablet) [facility] Last Admin: 07/25/22 07:37 Dose: 40 mg Umeclidinium- Vilanterol [Anoro Ellipta] 62.5-25 1 dose INH Q24H [facility] Last Admin: 07/25/22 08:50 Dose: 1 dose Prednisone (Prednisone 10 Mg Tablet) 40 mg PO QDAY [facility] Stop: 07/27/22 09:01 Last Admin: 07/25/22 08:50 Dose: 40 mg Prednisone (Prednisone 20 Mg Tablet) 30 mg PO [facility] Stop: 07/30/22 08:01 Prednisone (Prednisone 20 Mg Tablet) 20 mg PO [facility] Stop: 08/02/22 08:01 Prednisone (Prednisone 10 Mg Tablet) 10 mg PO [facility] Sodium Chloride (0.9 % Sodium Chloride 10 Ml Syringe) 10 ml IV Q8 [facility] Last Admin: 07/25/22 13:41 Dose: 10 ml A/P Time Spent With Patient Time: Total time spent is greater than 50% in coordination of care (as documented) at patient's floor/unit and/or counseling patient:
[2022-07-25] MEDS: traMADol 50 MG TABLET PO PRN (15:58)
[2022-07-25] MEDS: diphenhydrAMINE 25 MG CAPSULE PO PRN (22:05)
[2022-07-26] MEDS: DILTIAZEM 125 MG in DEXTROSE 5% IN WATER 100 ML IV SCH ×2 (02:55→14:32)
[2022-07-26] MEDS: 0.9 % SODIUM CHLORIDE 10 ML SYRINGE IV SCH ×3 (05:54→23:56)
[2022-07-26 06:09] LABS: Basophils # (Auto) 0.03 K/mcL (0.00-0.30); Basophils % (Auto) 0.1 % (0.0-2.0); Eosinophils # (Auto) 0.02 K/mcL (0.00-0.70); Eosinophils % (Auto) 0.1 % (0.0-7.0); Hematocrit 41.6 % (40.1-51.0); Hemoglobin 12.6 g/dL (13.7-17.5); Lymphocytes # (Auto) 2.07 K/mcL (1.50-4.80); Lymphocytes % (Auto) 9.7 % (15.5-49.0); Mean Corpuscular HGB Conc 30.3 g/dL (31.0-36.0); Mean Platelet Volume 10.5 fL (8.8-12.5); Monocytes # (Auto) 1.36 K/mcL (0.10-0.90); Monocytes % (Auto) 6.4 % (1.0-12.0); Neutrophils % (Auto) 82.5 % (38.0-78.0); Platelet Count 284 K/mcL (140-440); RBC 4.62 M/mcL (4.63-6.08); Red Cell Distribution Width 13.9 % (11.5-14.5); WBC 21.4 K/mcL (4.5-11.0)
[2022-07-26 06:42] LABS: ALT/SGPT 30 U/L (<40); AST/SGOT 18 U/L (<40); Albumin/Globulin Ratio 1.1 (1.0-2.3); Alkaline Phosphatase 83 U/L (39-117); Bilirubin,Total 0.2 mg/dL (0.1-1.0); Blood Urea Nitrogen 17 mg/dL (6-20); Calcium 8.5 mg/dL (8.6-10.4); Carbon Dioxide 34 mmol/L (22-30); Chloride 103 mmol/L (96-108); Globulin 2.8 gm/dL (2.2-3.7); Glomerular Filtration Rate 97; Glucose 83 mg/dL (70-105)
[2022-07-26] MEDS: BUDESONIDE 0.5 MG/2 ML AMPUL.NEB NEB SCH ×2 (08:51→20:30)
[2022-07-26] MEDS: LEVALBUTEROL 0.63 MG/3 ML AMPUL.NEB NEB SCH ×2 (08:51→20:30)
[2022-07-26] MEDS: ENOXAPARIN 30 MG/0.3 ML SYRINGE SQ SCH (09:26)
[2022-07-26] MEDS: POTASSIUM CHLORIDE 20 MEQ TABLET PO SCH ×2 (09:26→13:04)
[2022-07-26] MEDS: CETIRIZINE 10 MG TABLET PO SCH (09:26)
[2022-07-26] MEDS: PANTOPRAZOLE 40 MG TABLET PO SCH (09:27)
[2022-07-26] MEDS: predniSONE 10 MG TABLET PO SCH (09:27)
[2022-07-26] MEDS: DILTIAZEM 30 MG TABLET PO SCH ×3 (09:27→20:52)
[2022-07-26] MEDS: Umeclidinium-Vilanterol [Anoro Ellipta] 62.5-25 INH SCH (09:28)
[2022-07-26] MEDS: FLUTICASONE PROPIONATE SPRAY.NAS NS SCH (09:38)
[2022-07-26] MEDS: diphenhydrAMINE 25 MG CAPSULE PO PRN ×2 (10:22→16:15)
[2022-07-26] MEDS: LORazepam 0.5 MG TABLET PO PRN ×2 (11:11→20:51)
--- NOTE | 2022-07-26 12:32 | Internal Med Progress Note ---
SUBJECTIVE Subjective Patient information: Note initiated : 07/26/22 at 12:30 pm Service Date, if different from initiated Date: [] Patient: Ned Fortune 57 y/o M admitted on 07/24/22 for Irregular heart rate, low sats. Chief Complaint: [] Additional PMFSH (Level 3 Only): Mr. 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 Patient went home and was doing okay for a while, then his noted on pulse oximetry patient had tachycardia of 174 bpm, he was also very short of breath and was hypoxic down to 54% on 15 L, bumped up the oxygen to 15 L. In ER patient was found to be in A-fib with RVR, hall monitor showed 200-230 bpm, EKG showed atrial fibrillation with ventricular response of 196 bpm. Patient was quite distressed, he was given Ativan. Patient was given IV diltiazem bolus and started on IV diltiazem drip. Patient underwent emergent cardioversion which was successful in returning him to sinus tachycardia with a heart rate of around 114 bpm, diltiazem gtt was continued and patient was admitted to ICU. 07/26. Overnight patient reported no acute issues. He slept well. He is feeling better. Blood pressure is stable. Heart rate is under good control on p.o. diltiazem. His oxygen requirements however are up to 30 L and nursing staff are going to call RT to titrate it down to his baseline before he could be safely discharged home. Review of system No fever, no chills, feels improved from yesterday Less short of breath, minimal cough No nausea, no vomiting No chest pain, some palpitations No frequent urinary nation, no dysuria No sweating No skin rashes Denies depression PHYSICAL EXAM General: Alert, frail, appears comfortable in bed, Eyes/N/T: EOMI, no scleral icterus, Head/Neck: neck supple, full ROM, CV: S1 and S2, tachycardia with heart rate 110. Pulm: Dry crackles on supplemental oxygen Abd: soft, nontender, +BS x4 Ext: no clubbing/cyanosis/edema, nontender Neuro: Alert, no focal deficits, moves all extremities, sensations intact b/l upper/lower Psychiatric: Appropriate mood and affect Skin: warm/dry, normal color Assessment and plan Atrial fibrillation with RVR, new onset. Patient is status post successful electrocardioversion and back to sinus rhythm. Heart rate getting controlled on Cardizem 30 mg p.o. 3 times daily, blood pressure stable. Transthoracic echocardiogram Left ventricular systolic function is normal, calculated ejection fraction 63% Right ventricle is severely dilated Trace mitral regurgitation Moderate tricuspid regurgitation Estimated pulmonary artery pressure 50 mmHg No aortic stenosis [id number] 2 score is 0. Anticoagulation not warranted. TSH within range. Mg >2 Acute on chronic hypoxic respiratory failure, patient was hypoxic to 54% on 15 L. Now improving and back to baseline. We will continue with nebulization therapy Pulmonary fibrosis exacerbation, continue prednisone taper, nebs Severe COPD/end-stage COPD, continue nebulization and steroids GERD, continue PPI Malnourishment, secondary to end-stage pulmonary disease. Improved protein intake Anemia, chronic, no indication for transfusion Anxiety, as needed Ativan Prognosis, extremely guarded considering severe pulmonary fibrosis, multiple hospitalization Goals of care. Patient is DNR/DNI. Patient is hoping to make it until September 2022 for his daughters wedding. However this may be unlikely considering his ongoing deterioration. Critical care time of 55 minutes Portions of this chart may have been created with [employer] voice recognition software. Occasional wrong-word or sound-like substitutions may have occurred due to the inherent limitations of voice recognition software. Please read the chart carefully and recognize, using context, where the substitutions have occurred. Constitutional Vitals: Vital Signs Temp Pulse Resp BP Pulse Ox O2 Del Method O2 Flow Rate 97.6 F 102 H 32 H 126/104 97 High Flow Nasal Cannula 12 07/26/22 08:01 07/26/22 10:01 07/26/22 10:01 07/26/22 10:01 07/26/22 10:01 07/26/22 10:01 07/26/22 10:01 Period Temp Pulse Resp BP Sys/Ashraf Pulse Ox O2 Del Method O2 Flow Rate Last 24 Hr 97.6 F-97.7 F 65-122 14-39 97-129/79-104 87-100 Heated High Flow Nasal Ca-Room Air 12-35 Intake and Output 07/26/22 07/26/22 07/26/22 03:59 11:59 19:59 Intake Total 240 Output Total 225 260 Balance -225 -20 Weight 46.765 kg Intake & Output: Intake & Output 07/26/22 07/26/22 07/26/22 03:59 11:59 19:59 Intake Total 240 Output Total 225 260 Balance -225 -20 Weight 46.765 kg Intake: Oral 240 Output: Void Amount 225 260 Other: Meal Breakfast Percent of Meal Consumed 100% Feeding Ability Independent Urine Appearance Clear Clear Urine Color Yellow Dark Yellow OBJ DATA Labs 07/26/22 05:22 07/26/22 05:22 Labs: Abnormal Lab Results 07/26/22 07/26/22 07/24/22 05:22 05:22 15:24 WBC 21.4 H RBC 4.62 L Hgb 12.6 L MCHC 30.3 L Immature Gran % (Auto) 1.2 H Neut % (Auto) 82.5 H Lymph % (Auto) 9.7 L Lymph # (Auto) [place] # (Auto) 1.36 H Immature Gran # 0.25 H Absolute Neutrophils 17.66 H VBG Lactic Acid Potassium 3.2 L Carbon Dioxide 34 H POC Total CO2 31.0 H Anion Gap 6.0 L POC BUN 31 H POC Glucose 179 H Calcium 8.5 L Total Protein 5.8 L Albumin 3.0 L Procalcitonin Free T3 pg/mL 07/24/22 07/24/22 07/24/22 15:22 15:22 15:22 WBC RBC Hgb MCHC Immature Gran % (Auto) Neut % (Auto) Lymph % (Auto) Lymph # (Auto) [place] # (Auto) Immature Gran # Absolute Neutrophils VBG Lactic Acid 2.1 H Potassium Carbon Dioxide POC Total CO2 Anion Gap POC BUN POC Glucose Calcium Total Protein Albumin Procalcitonin 0.12 H Free T3 pg/mL 1.9 L 07/24/22 15:22 WBC 26.2 H RBC Hgb MCHC Immature Gran % (Auto) 1.2 H Neut % (Auto) 93.0 H Lymph % (Auto) 3.1 L Lymph # (Auto) 0.80 L [place] # (Auto) Immature Gran # 0.32 H Absolute Neutrophils 24.37 H VBG Lactic Acid Potassium Carbon Dioxide POC Total CO2 Anion Gap POC BUN POC Glucose Calcium Total Protein Albumin Procalcitonin Free T3 pg/mL Meds: Medications Acetaminophen (Acetaminophen 325 Mg Tablet) 650 mg PO Q4-6HP PRN; Protocol PRN Reason: Per Pain Protocol/Fever > 101 Last Admin: 07/25/22 13:40 Dose: 650 mg Albuterol/Ipratropium (Ipratropium/Albuterol 3 Ml Ampul.Neb) 3 ml NEB Q4HRT PRN PRN Reason: Wheezing Budesonide (Budesonide 0.5 Mg/2 Ml Ampul.Neb) 0.5 mg NEB Q12 [facility] Last Admin: 07/26/22 08:51 Dose: 0.5 mg Cetirizine HCl (Cetirizine 10 Mg Tablet) 10 mg PO QDAY [facility] Last Admin: 07/26/22 09:26 Dose: 10 mg Diltiazem HCl (Diltiazem 30 Mg Tablet) 30 mg PO TID [facility] Last Admin: 07/26/22 09:27 Dose: 30 mg Diphenhydramine HCl (Diphenhydramine 25 Mg Capsule) 25 mg PO BIDP PRN PRN Reason: Runny Nose Last Admin: 07/26/22 10:22 Dose: 25 mg Enoxaparin Sodium (Enoxaparin 30 Mg/0.3 Ml Syringe) 30 mg SQ DAILY [facility] Last Admin: 07/26/22 09:26 Dose: 30 mg Fluticasone Propionate (Fluticasone Propionate [place].Hesham) 2 spray NS QDAY [facility] Last Admin: 07/26/22 09:38 Dose: Not Given Diltiazem HCl 125 mg/ Dextrose 125 mls @ 5 mls/hr IV Q12H [facility]; Protocol Last Admin: 07/26/22 02:55 Dose: Not Given Levalbuterol HCl (Levalbuterol 0.63 Mg/3 Ml Ampul.Neb) 0.63 mg NEB BID [facility] Last Admin: 07/26/22 08:51 Dose: 0.63 mg Lorazepam (Lorazepam 0.5 Mg Tablet) 0.5 mg PO QIDP PRN PRN Reason: Anxiety Last Admin: 07/26/22 11:11 Dose: 0.5 mg Ondansetron HCl (Ondansetron 4 Mg/2 Ml Vial) 4 mg IV Q4-6HP PRN; Protocol PRN Reason: Nausea And Vomiting Pantoprazole Sodium (Pantoprazole 40 Mg Tablet) [facility] Last Admin: 07/26/22 09:27 Dose: 40 mg Umeclidinium- Vilanterol [Anoro Ellipta] 62.5-25 1 dose INH Q24H [facility] Last Admin: 07/26/22 09:28 Dose: 1 dose Prednisone (Prednisone 10 Mg Tablet) 40 mg PO QDAY [facility] Stop: 07/27/22 09:01 Last Admin: 07/26/22 09:27 Dose: 40 mg Prednisone (Prednisone 20 Mg Tablet) 30 mg PO [facility] Stop: 07/30/22 08:01 Prednisone (Prednisone 20 Mg Tablet) 20 mg PO [facility] Stop: 08/02/22 08:01 Prednisone (Prednisone 10 Mg Tablet) 10 mg PO [facility] Sodium Chloride (0.9 % Sodium Chloride 10 Ml Syringe) 10 ml IV Q8 [facility] Last Admin: 07/26/22 05:54 Dose: 10 ml Tramadol HCl (Tramadol 50 Mg Tablet) 25 mg PO TIDP PRN PRN Reason: Pain Last Admin: 07/25/22 15:58 Dose: 25 mg A/P Time Spent With Patient Time: Total time spent is greater than 50% in coordination of care (as documented) at patient's floor/unit and/or counseling patient:
[2022-07-27] MEDS: 0.9 % SODIUM CHLORIDE 10 ML SYRINGE IV SCH (05:41)
[2022-07-27] MEDS: DILTIAZEM 125 MG in DEXTROSE 5% IN WATER 100 ML IV SCH (05:44)
[2022-07-27 06:08] LABS: Basophils # (Auto) 0.03 K/mcL (0.00-0.30); Basophils % (Auto) 0.1 % (0.0-2.0); Eosinophils # (Auto) 0.02 K/mcL (0.00-0.70); Eosinophils % (Auto) 0.1 % (0.0-7.0); Hematocrit 40.7 % (40.1-51.0); Hemoglobin 12.5 g/dL (13.7-17.5); Lymphocytes # (Auto) 2.01 K/mcL (1.50-4.80); Lymphocytes % (Auto) 9.9 % (15.5-49.0); Mean Cell Volume 88.7 fL (80.0-100.0); Mean Corpuscular HGB Conc 30.7 g/dL (31.0-36.0); Mean Platelet Volume 10.4 fL (8.8-12.5); Monocytes # (Auto) 1.37 K/mcL (0.10-0.90); Monocytes % (Auto) 6.8 % (1.0-12.0); Neutrophils % (Auto) 82.1 % (38.0-78.0); Platelet Count 306 K/mcL (140-440); RBC 4.59 M/mcL (4.63-6.08); Red Cell Distribution Width 13.9 % (11.5-14.5); WBC 20.3 K/mcL (4.5-11.0)
[2022-07-27 06:34] LABS: ALT/SGPT 30 U/L (<40); AST/SGOT 18 U/L (<40); Albumin 2.9 gm/dL (3.2-5.2); Albumin/Globulin Ratio 0.9 (1.0-2.3); Alkaline Phosphatase 89 U/L (39-117); Bilirubin,Total 0.2 mg/dL (0.1-1.0); Blood Urea Nitrogen 14 mg/dL (6-20); Calcium 8.8 mg/dL (8.6-10.4); Carbon Dioxide 28 mmol/L (22-30); Chloride 102 mmol/L (96-108); Globulin 3.1 gm/dL (2.2-3.7); Glomerular Filtration Rate 118; Glucose 88 mg/dL (70-105)
[2022-07-27] MEDS: predniSONE 10 MG TABLET PO SCH (08:41)
[2022-07-27] MEDS: CETIRIZINE 10 MG TABLET PO SCH (08:41)
[2022-07-27] MEDS: DILTIAZEM 30 MG TABLET PO SCH (08:41)
[2022-07-27] MEDS: PANTOPRAZOLE 40 MG TABLET PO SCH (08:41)
[2022-07-27] MEDS: ENOXAPARIN 30 MG/0.3 ML SYRINGE SQ SCH (08:42)
[2022-07-27] MEDS: Umeclidinium-Vilanterol [Anoro Ellipta] 62.5-25 INH SCH (08:42)
[2022-07-27] MEDS: BUDESONIDE 0.5 MG/2 ML AMPUL.NEB NEB SCH (09:00)
[2022-07-27] MEDS: LEVALBUTEROL 0.63 MG/3 ML AMPUL.NEB NEB SCH (09:01)
--- NOTE | 2022-07-27 09:23 | Discharge Summary ---
Discharge Provider Provider IMPORTANT FOLLOW-UP INFORMATION FOR PCP: Patient information: Note initiated : 07/27/22 at 9:20 am Service Date, if different from initiated Date: [] Patient: Ned Fortune 57 y/o M admitted on 07/24/22 for Irregular heart rate, low sats. Chief Complaint: [] Date of admission: 07/24/22 19:00 Discharge date: 06/29/22 Primary care physician: HAILEE Multani Consults: 07/24/22 Consult to Physician [CONS] Stat Comment: Consulting Provider: Harinder Barba Reason For Exam: Physician to Consult COURSE Hospital Course Hospital course: Mr. 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 Patient went home and was doing okay for a bit, then his noted on pulse oximetry patient had tachycardia of 174 bpm, he was also very short of breath and was hypoxic down to 54% on 15 L, bumped up the oxygen to 15 L. In ER patient was found to be in A-fib with RVR, school bus monitor showed 200-230 bpm, EKG showed atrial fibrillation with ventricular response of 196 bpm. Patient was quite distressed, he was given Ativan. Patient was given IV diltiazem bolus and started on IV diltiazem drip. Patient underwent emergent cardioversion which was successful in returning him to sinus tachycardia with a heart rate of around 114 bpm, diltiazem gtt was continued and patient was admitted to ICU. Patient was subsequently transitioned to oral diltiazem with improved ventricular rate control. He remained in sinus rhythm. Echocardiogram showed preserved EF of 63%, right ventricular severely dilated, trace MR and moderate TR. Oxygen requirements went up to 30 L and then came down to his baseline of around 10 L. PHYSICAL EXAM General: Alert, awake, in no acute distress Eyes/N/T: EOMI, no scleral icterus, Head/Neck: neck supple, full ROM, CV: S1 and S2, tachycardia with heart rate 110. Pulm: Dry crackles on supplemental oxygen 10 L via nasal cannula and satting 96% Abd: soft, nontender, +BS x4 Ext: no clubbing/cyanosis/edema, nontender Neuro: Alert, no focal deficits, moves all extremities, sensations intact b/l upper/lower Psychiatric: Appropriate mood and affect Skin: warm/dry, normal color Assessment and plan Atrial fibrillation with RVR, new onset. Patient is status post successful electrocardioversion and back to sinus rhythm. Heart rate getting controlled on Cardizem 30 mg p.o. 3 times daily, blood pressure stable. Patient is nearly bedbound and is happy to continue with current 3 times a day regimen since this will not interfere with his lifestyle. Transthoracic echocardiogram Left ventricular systolic function is normal, calculated ejection fraction 63% Right ventricle is severely dilated Trace mitral regurgitation Moderate tricuspid regurgitation Estimated pulmonary artery pressure 50 mmHg No aortic stenosis [id number] 2 score is 0. Anticoagulation not warranted. TSH within range. Mg >2 Acute on chronic hypoxic respiratory failure, patient was hypoxic to 54% on 50 L. Now improving and back to baseline. Pulmonary fibrosis exacerbation, continue prednisone taper, nebs Severe COPD/end-stage COPD, continue nebulization and steroids GERD, continue PPI Malnourishment, secondary to end-stage pulmonary disease. Improved protein intake Anemia, chronic, no indication for transfusion Anxiety, as needed Ativan Prognosis, extremely guarded considering severe pulmonary fibrosis, multiple hospitalization Goals of care. Patient is DNR/DNI. Patient is hoping to make it until September 2022 for his daughters wedding. However this may be unlikely considering his ongoing deterioration. Discharge diagnosis: Atrial fibrillation with RVR, Pulmonary fibrosis, COPD Time Spent with Patient Time attestation: Total time spent providing and/or coordinating discharge services: Time spent: Greater than 30 minutes EXAM Constitutional Vitals: Temp Pulse Resp BP Pulse Ox O2 Del Method O2 Flow Rate 97.6 F 96 H 28 H 115/98 95 High Flow Nasal Cannula 10 07/26/22 08:01 07/27/22 09:02 07/27/22 09:02 07/27/22 08:07 07/27/22 09:01 07/27/22 09:01 07/27/22 09:01 Discharge Data Data Completed and Pending Labs on day of discharge: Labs from last 24 hours 07/27/22 07/27/22 05:15 05:15 WBC 20.3 H RBC 4.59 L Hgb 12.5 L Hct 40.7 MCV 88.7 MCH 27.2 MCHC 30.7 L RDW 13.9 Plt Count 306 MPV 10.4 Immature Gran % (Auto) 1.0 H Neut % (Auto) 82.1 H Lymph % (Auto) 9.9 L [place] % (Auto) 6.8 Eos % (Auto) 0.1 Baso % (Auto) 0.1 Lymph # (Auto) 2.01 [place] # (Auto) 1.37 H Eos # (Auto) 0.02 Baso # (Auto) 0.03 Immature Gran # 0.21 H Absolute Neutrophils 16.61 H Sodium 140 Potassium 4.0 Chloride 102 Carbon Dioxide 28 Anion Gap 10.0 BUN 14 Creatinine 0.5 L GFR Calculation 118 Glucose 88 Calcium 8.8 Total Bilirubin 0.2 AST 18 ALT 30 Alkaline Phosphatase 89 Total Protein 6.0 Albumin 2.9 L Globulin 3.1 Albumin/Globulin Ratio 0.9 L Preliminary micro results at discharge 07/24/22 17:33 Blood Culture - Preliminary Blood 07/24/22 17:15 Blood Culture - Preliminary Blood Discharge Plan Patient/Caregiver Discharge Instructions Activity: increase activity as tolerated Diet: Regular Diet Prescriptions: New diltiazem HCl 30 mg Tablet 30 mg PO TID Qty: 180 0RF Continued ipratropium-albuterol 0.5 mg-3 mg(2.5 mg base)/3 mL solution for nebulization 3 ml inhalation Q4HRT PRN (Reason: Wheezing) Qty: 100 6RF (DME) Electric mobility scooter See Rx Instructions .Route .MEDSUPPLY Qty: 1 0RF Rx Instructions: Patient unable to ambulate due to severe lung disease. albuterol sulfate 90 mcg/actuation HFA aerosol inhaler 2 puff INHALATION Q4HP PRN (Reason: Shortness Of Breath) Qty: 8.5 2RF umeclidinium 62.5 mcg-vilanterol 25 mcg/actuation powdr for inhalation 62.5-25 mcg/actuation blister with device 1 inh INHALATION Q24H Qty: 60 1RF Rx Instructions: 340B plan. omeprazole 40 mg capsule,delayed release(DR/EC) 40 mg PO QDAY Qty: 90 1RF lorazepam [Ativan] 0.5 mg tablet 0.5 mg PO TID PRN (Reason: anxiety) Qty: 40 0RF Patient Comments: Had 2 does on 07/18/22 per family report cetirizine 10 mg capsule 10 mg PO QDAY Rx Instructions: qd diphenhydramine HCl [Benadryl Allergy] 25 mg tablet 25 - 50 mg PO BID PRN (Reason: Runny Nose) Patient Comments: told RN that he," had 50 mg in the am 07/18 and 50 mg in the pm 07/18, as his nose has been running quite a bit lately." Rx Instructions: Pt states takes at 1800 and 2009 budesonide 0.5 mg/2 mL suspension for nebulization 0.5 mg inhalation Q12 Qty: 60 4RF prednisone 10 mg tablet 10 mg PO QDAY Qty: 40 0RF Rx Instructions: Take prednisone 40 mg daily for 3 days followed by prednisone 30 mg daily for 3 days followed by prednisone 20 mg for 3 days then resume prednisone 10 mg daily until you follow-up with pulmonology for further dosing instructions. prednisone 10 mg tablet 40 mg PO QDAY Qty: 1 0RF Rx Instructions: Take 40mg once daily for 3 days then 30mg daily for 3 days then 20mg daily for 3 days then continue home regimen of 10mg daily. fluticasone propionate [24 Hour Allergy Relief] 50 mcg/actuation spray,suspension 2 spray intranasal QDAY Qty: 16 0RF Rx Instructions: administer into each nostril Follow Up Plan Follow up with: Liane Howell ARNP [Primary Care Provider] - (1 week) Patient Disposition: Home, Self-Care Overall status at discharge: other Discharge Orders: Discharge Order (Routine); Ordered 07/27/22 Ordered By: Harinder Barba
[2022-07-27] MEDS: FLUTICASONE PROPIONATE SPRAY.NAS NS SCH (09:47)
[2022-07-27] MEDS: LORazepam 0.5 MG TABLET PO PRN (12:18)
[2022-07-27] MEDS: traMADol 50 MG TABLET PO PRN (12:18)
[2022-07-28] MEDS ORDERED: predniSONE 20 MG TABLET PO SCH (08:00)
[2022-07-31] MEDS ORDERED: predniSONE 20 MG TABLET PO SCH (08:00)
[2022-08-03] MEDS ORDERED: predniSONE 10 MG TABLET PO SCH (08:00)
== END 2022-07-27 13:45 | disposition home or self-care (01) | DRG 308 ==
LOC: ED 14:37 → ICU 19:00
PROVIDERS: ADMIT Internal Medicine; ATTEND Internal Medicine

== ENCOUNTER 2022-08-06 11:51 | Inpatient (IN) ==
[2022-08-06] MEDS ORDERED: IOPAMIDOL 100 ML BOTTLE IV ONE (11:52)
[2022-08-06] MEDS ORDERED: methylPREDNISolone SOD SUCC 125 MG/2 ML VIAL IV ONE (12:29)
[2022-08-06] MEDS ORDERED: IPRATROPIUM/ALBUTEROL 3 ML AMPUL.NEB NEB ONE (12:29)
[2022-08-06] MEDS ORDERED: ALBUTEROL SULFATE 5 MG/ML NEB SOLUTION BOTTLE NEB ONE (12:29)
--- NOTE | 2022-08-06 12:32 | Emergency Department Note ---
SOB HPI General Chief Complaint: Shortness of Breath/Dyspnea Stated Complaint: SOB Time Seen by Provider: 08/06/22 12:13 Source: EMS Mode of arrival: EMS Limitations: no limitations History of Present Illness HPI Narrative: Narrative: Patient presents to the ED via EMS with complaints of worsening shortness of breath over the last couple days. Patient has known end-stage pulmonary fibrosis. At home he uses 12 to 15 L via nasal cannula. States over the last couple days it has become more difficult to breathe. He denies fever, chills, nausea, vomiting, cough, sputum production, cardiac chest pain, heart pal pitation, hemoptysis, diarrhea. Patient denies any other alleviating or aggravating factors. Related Data Home Medications Medication Instructions Recorded Confirmed cetirizine 10 mg capsule 10 mg PO QDAY 08/05/19 07/25/22 diphenhydramine HCl 25 mg tablet 25 - 50 mg PO BID PRN Runny Nose 12/05/21 07/25/22 (Benadryl Allergy) Previous Rx's Medication Instructions Recorded ipratropium 0.5 mg-albuterol 3 mg 3 ml inhalation Q4HRT PRN Wheezing 01/21/22 (2.5 mg base)/3 mL nebulization #100 mL soln Electric mobility scooter #1 ea 03/19/22 albuterol sulfate 90 mcg/actuation 2 puff inhalation Q4HP PRN 04/08/22 aerosol inhaler Shortness Of Breath #8.5 grams umeclidinium 62.5 mcg-vilanterol 1 inh inhalation Q24H #60 ea 05/15/22 25 mcg/actuation powdr for inhalation (Anoro Ellipta) omeprazole 40 mg capsule,delayed 40 mg PO QDAY #90 caps 06/25/22 release budesonide 0.5 mg/2 mL suspension 0.5 mg (2 mL) inhalation Q12 #60 mL 07/07/22 for nebulization prednisone 10 mg tablet 10 mg PO QDAY #40 tabs 07/07/22 prednisone 10 mg tablet 40 mg PO QDAY #1 tab 07/22/22 fluticasone propionate 50 2 spray intranasal QDAY #16 grams 07/23/22 mcg/actuation nasal spray,suspension (24 Hour Allergy Relief) diltiazem HCl 30 mg tablet 30 mg PO TID #180 tabs 07/27/22 lorazepam 0.5 mg tablet (Ativan) 0.5 mg PO .COMPLEX PRN anxiety #90 08/05/22 tabs Allergies Allergy/AdvReac Type Severity Reaction Status Date / Time naproxen AdvReac Intermediate purple Verified 08/06/22 11:58 spots on face Review of Systems ROS ROS Narrative: Narrative: All systems ED: reviewed and negative except as stated. 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) Acute and chronic respiratory failure with hypoxia (Acute) Pneumonia (Acute) Acute exacerbation of chronic obstructive pulmonary disease (Acute) Elevated brain natriuretic peptide (BNP) level (Acute) Acute and chronic respiratory failure with hypoxia (Acute) SOB (shortness of breath) (Acute) Chest pain (Acute) Anemia, normocytic normochromic (Acute) Acute and chronic respiratory failure with hypoxia (Acute) Muscular deconditioning (Chronic) SOB (shortness of breath) (Acute) Respiratory failure (Acute) Acute and chronic respiratory failure (Acute) CAP (community acquired pneumonia) (Acute) COPD exacerbation (Acute) H/O malignant neoplasm of colon (Chronic) Pulmonary fibrosis determined by high resolution computed tomography (Chronic) GERD with esophagitis (Chronic) Rico esophagus (Chronic) Bronchiectasis (Chronic) Hypoxemia (Chronic) Walking pneumonia (Chronic) SOB (shortness of breath) (Chronic) Tubulovillous adenoma (Chronic) Colon cancer (Chronic ~07/2014) Iron deficiency anemia (Chronic) Sinus congestion (Chronic) SOB (shortness of breath) on exertion (Chronic) COPD (chronic obstructive pulmonary disease) (Chronic) Eczema (Chronic) Elevated BP without diagnosis of hypertension (Chronic) Seasonal allergies (Chronic) Oxygen desaturation (Chronic) COVID-19 (Acute) Pneumonia due to COVID-19 virus (Acute) LLL pneumonia (Chronic) Medical History Rico esophagus Bronchiectasis Colon cancer (~07/2014) history of tubulovillous adenoma and colon carcinoma , removed 07/2014 COPD (chronic obstructive pulmonary disease) Eczema Elevated BP without diagnosis of hypertension GERD with esophagitis H/O malignant neoplasm of colon H/O: rheumatic fever Hypoxemia Iron deficiency anemia Muscular deconditioning Oxygen desaturation 11/26/2020: 75-88% on oxygen today in clinic Pulmonary fibrosis determined by high resolution computed tomography Seasonal allergies Tubulovillous adenoma Surgical History History of colonoscopy (08/11/16) abnormal History of repair of hiatal hernia (~04/2018) bleeding ulcers History of tonsillectomy and adenoidectomy (~1969) S/P Clara fundoplication (without gastrostomy tube) procedure Family History Father PNA (pneumonia) Prostate cancer Mother Kidney failure Grandfather Cancer Daughter Hemiplegic migraine Ovarian cyst Social History Smoking Status: Former smoker Alcohol Intake Frequency: holiday/special occasion only Substance Use: does not use Exam Narrative Narrative: Narrative: General Limitations: no limitations General appearance: Absent in distress ENT ENT: Present normal oropharynx and mucous membranes moist Chest Chest: Present normal inspection; Absent tenderness Respiratory Respiratory: Present respiratory distress, wheezes and accessory muscle use; Abs ent rales/crackles or stridor Cardiovascular Cardiovascular: Present normal rhythm and tachycardia Adbominal Abdominal: Present soft; Absent tenderness Extremities Extremities: Present normal inspection and normal capillary refill Neurological Neurological: Present alert and oriented X3 Psychiatric Psychiatric: Present normal affect and normal mood Skin Skin: Present warm (WNL) and intact Course Course Course Narrative: Patient was evaluated for complaints of shortness of breath. When patient arrived via EMS he was on 15 L on nonrebreather and only satting 88%. Blood gas in the medial plane and patient's pH was within normal limits as well as his lactic acid. EKG was obtained and was unremarkable. Patient denied any chest pain. Chest x-ray obtained with image reviewed myself with no acute cardiopulmonary finding but does show severe fibrosis. D-dimer was elevated so CT of the chest was obtained with image reviewed myself with no acute PE but does confirm severe fibrosis. Patient was placed on high flow nasal cannula and were able to maintain. Patient was given IV methylprednisolone. Is also given a DuoNeb treatment as well as albuterol treatment. His BNP was elevated so he was given IV Lasix. Patient's respiration improved but we were not able to wean him down past 50% FiO2 as he would desat down to 70%. Patient has expressed desire to be a DNR. I believe at this point patient would benefit from further treatment with steroids and high flow nasal cannula. Case was discussed with hospitalist who has agreed to admit the patient. Plan of care was discussed with patient he expressed verbal understanding agreement of plan Reevaluation(s) Reevaluation #1: Patient remains hemodynamically stable on high flow nasal cannula. No new complaints at this time. He states is much easier to breathe after treatment. Time: 13:16 Consultations Consultation #1: Case discussed with hospitalist who has agreed to admit the patient Time: 15:52 Vital Signs Vital signs: Vital Signs Temperature 98.0 F 08/06/22 11:54 Pulse Rate 74 08/06/22 11:54 Respiratory Rate 22 08/06/22 11:54 Blood Pressure 132/97 08/06/22 11:54 Pulse Oximetry (%) 94 08/06/22 11:54 Oxygen Delivery Method Non-Rebreather Mask 08/06/22 11:54 Temperature 98.0 F 08/06/22 11:54 Pulse Rate 107 H 08/06/22 15:45 Respiratory Rate 37 H 08/06/22 15:45 Blood Pressure 120/107 08/06/22 15:45 Pulse Oximetry (%) 95 08/06/22 15:45 Oxygen Delivery Method Heated High Flow Nasal Cannula 08/06/22 15:45 Oxygen Flow Rate (L/min) 40 08/06/22 15:45 MDM MDM Narrative Medical decision making narrative: Narrative: Differential Diagnosis Differential Diagnosis: COPD exacerbation, pneumonia, viral illness, PE Medical Records Medical records reviewed: Yes I reviewed the patient's medical records. Lab Data Lab results reviewed: Yes I reviewed the patient's lab results. 08/06/22 12:33 Labs: Lab Results 08/06/22 08/06/22 08/06/22 Range/Units 12:32 12:33 12:33 WBC 22.2 H (4.5-11.0) K/mcL RBC 5.01 (4.63-6.08) M/mcL Hgb 13.7 (13.7-17.5) g/dL Hct 44.9 (40.1-51.0) % POC Hct (41-55) MCV 89.6 (80.0-100.0) fL MCH 27.3 (26.0-34.0) pg MCHC 30.5 L (31.0-36.0) g/dL RDW 14.5 (11.5-14.5) % Plt Count 355 (140-440) K/mcL MPV 10.8 (8.8-12.5) fL Immature Gran % (Auto) 0.7 H (0.0-0.5) % Neut % (Auto) 90.6 H (38.0-78.0) % Lymph % (Auto) 4.7 L (15.5-49.0) % [place] % (Auto) 3.6 (1.0-12.0) % Eos % (Auto) 0.2 (0.0-7.0) % Baso % (Auto) 0.2 (0.0-2.0) % Lymph # (Auto) 1.05 L (1.50-4.80) K/mcL [place] # (Auto) 0.80 (0.10-0.90) K/mcL Eos # (Auto) 0.05 (0.00-0.70) K/mcL Baso # (Auto) 0.05 (0.00-0.30) K/mcL Immature Gran # 0.15 H (0.00-0.05) K/mcl Absolute Neutrophils 20.07 H (1.80-8.00) K/mcL D-Dimer 0.79 H (0.27-0.50) ug/mL POC Sodium (133-145) POC Potassium (3.3-5.1) POC Chloride (96-108) POC Total CO2 (22-30) POC BUN (6-20) POC Creatinine (0.6-1.2) POC Glucose (70-105) POC WB Ioniz Calcium (1.16-1.32) NT-Pro-B Natriuret Pep 1567.0 H (<125.0) pg/mL POC Troponin I (0.00-0.08) 08/06/22 08/06/22 08/06/22 Range/Units 12:36 12:37 15:23 WBC (4.5-11.0) K/mcL RBC (4.63-6.08) M/mcL Hgb (13.7-17.5) g/dL Hct (40.1-51.0) % POC Hct 45.0 (41-55) MCV (80.0-100.0) fL MCH (26.0-34.0) pg MCHC (31.0-36.0) g/dL RDW (11.5-14.5) % Plt Count (140-440) K/mcL MPV (8.8-12.5) fL Immature Gran % (Auto) (0.0-0.5) % Neut % (Auto) (38.0-78.0) % Lymph % (Auto) (15.5-49.0) % [place] % (Auto) (1.0-12.0) % Eos % (Auto) (0.0-7.0) % Baso % (Auto) (0.0-2.0) % Lymph # (Auto) (1.50-4.80) K/mcL [place] # (Auto) (0.10-0.90) K/mcL Eos # (Auto) (0.00-0.70) K/mcL Baso # (Auto) (0.00-0.30) K/mcL Immature Gran # (0.00-0.05) K/mcl Absolute Neutrophils (1.80-8.00) K/mcL D-Dimer (0.27-0.50) ug/mL POC Sodium 143 (133-145) POC Potassium 3.7 (3.3-5.1) POC Chloride 101 (96-108) POC Total CO2 34.0 H (22-30) POC BUN 16 (6-20) POC Creatinine 0.9 (0.6-1.2) POC Glucose 88 (70-105) POC WB Ioniz Calcium 1.17 (1.16-1.32) NT-Pro-B Natriuret Pep (<125.0) pg/mL POC Troponin I 0.15 H 0.16 H (0.00-0.08) Radiology Data Radiology results reviewed: Yes I reviewed the patient's radiology results. Radiology results narrative: Chest x-ray obtained with image reviewed myself, agree with radiologist dictation CTA, of the chest obtained with image reviewed myself agree with radiology interpretation EKG Data EKG #1: EKG attestation: Yes I reviewed and interpreted this EKG. EKG shows normal: sinus rhythm Rate: normal Rhythm: NSR [place]/QRS: normal Heart block present: None ST segment elevation in: None ST segment depression in: None QTc: normal QRS morphology: Present normal Interpretation: no acute changes and nonspecific ST-T wave changes Core Measures AMI Core Measures Followed: Yes Discharge Plan Patient/Caregiver Discharge Instructions Pt seen by LINE RUNNER/PA only: No Clinical Impression: Acute and chronic respiratory failure with hypoxia Patient Disposition: Xfer As Outpt/Obs ([facility]) Condition: Fair Follow up with: Liane Howell ARNP [Primary Care Provider] - Prescriptions: No Action ipratropium-albuterol 0.5 mg-3 mg(2.5 mg base)/3 mL solution for nebulization 3 ml inhalation Q4HRT PRN (Reason: Wheezing) Qty: 100 6RF (DME) Electric mobility scooter See Rx Instructions .Route .MEDSUPPLY Qty: 1 0RF Rx Instructions: Patient unable to ambulate due to severe lung disease. albuterol sulfate 90 mcg/actuation HFA aerosol inhaler 2 puff INHALATION Q4HP PRN (Reason: Shortness Of Breath) Qty: 8.5 2RF umeclidinium 62.5 mcg-vilanterol 25 mcg/actuation powdr for inhalation 62.5-25 mcg/actuation blister with device 1 inh INHALATION Q24H Qty: 60 1RF Rx Instructions: 340B plan. omeprazole 40 mg capsule,delayed release(DR/EC) 40 mg PO QDAY Qty: 90 1RF lorazepam [Ativan] 0.5 mg tablet 0.5 mg PO .COMPLEX PRN (Reason: anxiety) Qty: 90 0RF Patient Comments: Had 2 does on 07/18/22 per family report Rx Instructions: 0.5 mg orally 1-2 tabs three times a day as needed PRN; cetirizine 10 mg capsule 10 mg PO QDAY Rx Instructions: qd diphenhydramine HCl [Benadryl Allergy] 25 mg tablet 25 - 50 mg PO BID PRN (Reason: Runny Nose) Patient Comments: told RN that he," had 50 mg in the am 07/18 and 50 mg in the pm 07/18, as his nose has been running quite a bit lately." Rx Instructions: Pt states takes at 1800 and 2009 budesonide 0.5 mg/2 mL suspension for nebulization 0.5 mg inhalation Q12 Qty: 60 4RF prednisone 10 mg tablet 10 mg PO QDAY Qty: 40 0RF Rx Instructions: Take prednisone 40 mg daily for 3 days followed by prednisone 30 mg daily for 3 days followed by prednisone 20 mg for 3 days then resume prednisone 10 mg daily until you follow-up with pulmonology for further dosing instructions. prednisone 10 mg tablet 40 mg PO QDAY Qty: 1 0RF Rx Instructions: Take 40mg once daily for 3 days then 30mg daily for 3 days then 20mg daily for 3 days then continue home regimen of 10mg daily. fluticasone propionate [24 Hour Allergy Relief] 50 mcg/actuation spray,suspension 2 spray intranasal QDAY Qty: 16 0RF Rx Instructions: administer into each nostril diltiazem HCl 30 mg Tablet 30 mg PO TID Qty: 180 0RF
[2022-08-06] MEDS ORDERED: ALBUTEROL SULFATE 2.5 MG/3 ML NEBULIZER ONE (12:37)
[2022-08-06 12:39] LABS: POC Calcium, Ionized 1.17 (1.16-1.32); POC Creatinine 0.9 (0.6-1.2); POC Potassium 3.7 (3.3-5.1)
--- NOTE | 2022-08-06 12:52 | XRay Report ---
INDICATION: sob TECHNIQUE: AP portable semiupright chest x-ray COMPARISON: Multiple previous chest x-rays. Comparison made of prior examinations dated 07/24/2022, 07/18/2022, 07/04/2022. Comparison made with more remote chest x-rays dated 10/09/2020 and 01/13/2019 FINDINGS: Lungs:Diffusely abnormal lungs consistent with pulmonary fibrosis. Appearance is unchanged since 07/24/2022. No superimposed infiltrate. No focal mass. There has been interval progression since 01/13/2019. Heart, vascular:No significant cardiomegaly. Pulmonary vascularity is normal. No pulmonary edema or pulmonary congestion Mediastinum, emily:No mediastinal widening. No hilar mass Pleura:No pleural fluid. No pleural-based mass or calcification Skeletal:Negative. IMPRESSION: 1. Diffusely abnormal chest x-ray consistent with pulmonary fibrosis. 2. No significant interval change since 07/24/2022. There has been interval progression since 01/13/2019 Interpreted and Authenticated by: Pardeep White 08/06/22
[2022-08-06 13:24] LABS: Basophils # (Auto) 0.05 K/mcL (0.00-0.30); Basophils % (Auto) 0.2 % (0.0-2.0); Eosinophils # (Auto) 0.05 K/mcL (0.00-0.70); Eosinophils % (Auto) 0.2 % (0.0-7.0); Hematocrit 44.9 % (40.1-51.0); Hemoglobin 13.7 g/dL (13.7-17.5); Lymphocytes # (Auto) 1.05 K/mcL (1.50-4.80); Lymphocytes % (Auto) 4.7 % (15.5-49.0); Mean Cell Volume 89.6 fL (80.0-100.0); Mean Corpuscular HGB Conc 30.5 g/dL (31.0-36.0); Mean Platelet Volume 10.8 fL (8.8-12.5); Monocytes % (Auto) 3.6 % (1.0-12.0); Neutrophils % (Auto) 90.6 % (38.0-78.0); Platelet Count 355 K/mcL (140-440); RBC 5.01 M/mcL (4.63-6.08); Red Cell Distribution Width 14.5 % (11.5-14.5); WBC 22.2 K/mcL (4.5-11.0)
[2022-08-06] MEDS ORDERED: FUROSEMIDE 40 MG/4 ML VIAL IV ONE (14:04)
--- NOTE | 2022-08-06 14:41 | Cat Scan Report ---
INDICATION: sob, tachycardia and elevated ddimer COMPARISON: CTA dated 06/15/2022 TECHNIQUE: Axial images obtained through the chest. 53ml Isovue 370 injected intravenously, and scanning was performed during pulmonary arterial phase. Sagittally and coronally reformatted images were obtained. MIP reformatted images. FINDINGS: Lungs:There is severe lung disease consistent with end-stage pulmonary fibrosis. There is extensive cystic change consistent with severe honeycombing. This is essentially unchanged since 06/15/2022. No new mass. No parenchymal consolidation. No evidence for superimposed pneumonia. Mediastinum, vascular:Main pulmonary artery, right pulmonary artery, left pulmonary artery are negative. No intraluminal filling defects. No lobar, segmental, or subsegmental emboli. Thoracic aorta is negative. No aneurysmal dilatation. There is enlargement of the main pulmonary artery as well as the right and left pulmonary arteries. Appearance is consistent with pulmonary arterial hypertension . There is tracheomegaly, unchanged No pathologic mediastinal or hilar adenopathy Heart:No cardiomegaly. No pericardial effusion. No significant reflux of contrast material into the inferior vena cava or hepatic veins. No evidence for right heart failure Pleura:No significant pleural effusion. No pleural mass or calcification Axilla, supraclavicular regions, chest wall:No pathologic axillary or supraclavicular adenopathy. Musculoskeletal:Negative thoracic spine. No compression fracture. No lytic lesion. No rib or sternal lesions Upper Abdomen:Negative IMPRESSION: 1. Very severe pulmonary fibrosis, essentially unchanged since 06/15/2022 2. Negative pulmonary CTA. No pulmonary embolism 3. Enlarged pulmonary artery. Large right and left pulmonary arteries. Appearance is consistent with pulmonary arterial hypertension 4. No superimposed acute pneumonia The exam was performed using radiation dose optimization techniques including, but not limited to, automated exposure control, adjustment of the mA and/or kV according to patient size and use of iterative reconstruction technique. Interpreted and Authenticated by: Pardeep White 08/06/22
[2022-08-06] MEDS ORDERED: LORazepam 2 MG/ML VIAL IV ONE (16:40)
--- NOTE | 2022-08-06 17:22 | Internal Med History&Physical ---
HPI History of Present Illness Patient information: Note initiated : 08/06/22 at 5:20 pm Service Date, if different from initiated Date: [] Patient: Ned Fortune 57 y/o M admitted on for Shortness of breath. Chief Complaint: [] History of present illness: Mr. Fortune is a 57 year old M History of present illness: Mr. Fortune is a 57 year old M Presents back to the ED for increased shortness of breath. 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 He has been admitted multiple times since April. He is also had multiple ED visits. He is on 10 L or more with several concentrators of oxygen at home. He is hoping to just make it to his daughters wedding in September. They have had the discussion of moving up the wedding date but it does not seem feasible per family and they say "it is what it is", knowing he will be at the wedding "one way or the other". Patient states for the past couple days he just had increasing oxygen need up to 20 L with all other concentrators. His cough is similar to what its been But his shortness of breath is noticeably worse. Vital signs in the ED showed sinus tachycardia which is common for him. He was tachypneic he was initially started on a nonrebreather but then was placed on vapotherm. In the ED Patient was given Solu-Medrol and breathing treatments. chronci leukocytosis. CTA chest showing severe pulmonary fibrosis unchanged. No PE. No edema noted Patient found to have leukocytosis of 19,000 which is chronic for him. We will check manual differential. Review of Systems: Pertinent positives above. Denies headache/fever/chills/nausea/vomiting/chest or abdominal pain/diarrhea. Remaining 10 point review of system reviewed negative PHYSICAL EXAM General: Alert, Awake, No acute Distress Eyes/N/T: EOMI, no scleral icterus, PERRL, Head/Neck: neck supple, full ROM, normocephalic atraumatic CV: Tachycardic but regular, No murmurs, normal s1/s2 Pulm: mild fine Rales b/l, no wheezing Abd: soft, nontender, +BS x4 Ext: no clubbing/cyanosis/edema, nontender Neuro: Alert, no focal deficits, moves all extremities, CN 2-12 grossly intact, sensations intact b/l upper/lower Psychiatric: Skin: warm/dry, normal color PFSH PFSH All Active Problems (Updated 08/06/22 @ 15:04 by Javan Osman DO) Respiratory failure, acute (Acute) Pulmonary infection (Acute) Pulmonary fibrosis (Acute) Atrial fibrillation with rapid ventricular response (Acute) Pneumonia (Acute) 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) Acute and chronic respiratory failure with hypoxia (Acute) Pneumonia (Acute) Acute exacerbation of chronic obstructive pulmonary disease (Acute) Elevated brain natriuretic peptide (BNP) level (Acute) Acute and chronic respiratory failure with hypoxia (Acute) SOB (shortness of breath) (Acute) Chest pain (Acute) Anemia, normocytic normochromic (Acute) Acute and chronic respiratory failure with hypoxia (Acute) Muscular deconditioning (Chronic) SOB (shortness of breath) (Acute) Respiratory failure (Acute) Acute and chronic respiratory failure (Acute) CAP (community acquired pneumonia) (Acute) COPD exacerbation (Acute) H/O malignant neoplasm of colon (Chronic) Pulmonary fibrosis determined by high resolution computed tomography (Chronic) GERD with esophagitis (Chronic) Rico esophagus (Chronic) Bronchiectasis (Chronic) Hypoxemia (Chronic) Walking pneumonia (Chronic) SOB (shortness of breath) (Chronic) Tubulovillous adenoma (Chronic) Colon cancer (Chronic ~07/2014) Iron deficiency anemia (Chronic) Sinus congestion (Chronic) SOB (shortness of breath) on exertion (Chronic) COPD (chronic obstructive pulmonary disease) (Chronic) Eczema (Chronic) Elevated BP without diagnosis of hypertension (Chronic) Seasonal allergies (Chronic) Oxygen desaturation (Chronic) COVID-19 (Acute) Pneumonia due to COVID-19 virus (Acute) LLL pneumonia (Chronic) Medical History Rico esophagus Bronchiectasis Colon cancer (~07/2014) history of tubulovillous adenoma and colon carcinoma , removed 07/2014 COPD (chronic obstructive pulmonary disease) Eczema Elevated BP without diagnosis of hypertension GERD with esophagitis H/O malignant neoplasm of colon H/O: rheumatic fever Hypoxemia Iron deficiency anemia Muscular deconditioning Oxygen desaturation 11/26/2020: 75-88% on oxygen today in clinic Pulmonary fibrosis determined by high resolution computed tomography Seasonal allergies Tubulovillous adenoma Surgical History History of colonoscopy (08/11/16) abnormal History of repair of hiatal hernia (~04/2018) bleeding ulcers History of tonsillectomy and adenoidectomy (~1969) S/P Clara fundoplication (without gastrostomy tube) procedure Family History Father PNA (pneumonia) Prostate cancer Mother Kidney failure Grandfather Cancer Daughter Hemiplegic migraine Ovarian cyst Social History household members: spouse and family housing: house marital status: occupational status: retired 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 Has 2 children physical activity: none smoking status: Former smoker quit date: 05/04/98 pack-years: 20 alcohol intake frequency: holiday/special occasion only substance use type: does not use MEDS/ALLERGIES Home Medications and Allergies Home Medications Medication Instructions Recorded Confirmed Type cetirizine 10 mg capsule 10 mg PO QDAY 08/05/19 08/06/22 History diphenhydramine HCl 25 mg tablet 25 - 50 mg PO BID PRN Runny Nose 12/05/21 08/06/22 History (Benadryl Allergy) ipratropium 0.5 mg-albuterol 3 mg 3 ml inhalation Q4HRT PRN Wheezing 01/21/22 08/06/22 Rx (2.5 mg base)/3 mL nebulization #100 mL soln [employer] mobility scooter #1 ea 03/19/22 08/06/22 Rx albuterol sulfate 90 mcg/actuation 2 puff inhalation Q4HP PRN 04/08/22 08/06/22 Rx aerosol inhaler Shortness Of Breath #8.5 grams umeclidinium 62.5 mcg-vilanterol 1 inh inhalation Q24H #60 ea 05/15/22 08/06/22 Rx 25 mcg/actuation powdr for inhalation (Anoro Ellipta) omeprazole 40 mg capsule,delayed 40 mg PO QDAY #90 caps 06/25/22 08/06/22 Rx release budesonide 0.5 mg/2 mL suspension 0.5 mg (2 mL) inhalation Q12 #60 mL 07/07/22 08/06/22 Rx for nebulization prednisone 10 mg tablet 10 mg PO QDAY #40 tabs 07/07/22 07/25/22 Rx prednisone 10 mg tablet 40 mg PO QDAY #1 tab 07/22/22 07/25/22 Rx fluticasone propionate 50 2 spray intranasal QDAY #16 grams 07/23/22 08/06/22 Rx mcg/actuation nasal spray,suspension (24 Hour Allergy Relief) diltiazem HCl 30 mg tablet 30 mg PO TID #180 tabs 07/27/22 08/06/22 Rx lorazepam 0.5 mg tablet (Ativan) 0.5 mg PO .COMPLEX PRN anxiety #90 08/05/22 08/06/22 Rx tabs Allergies Allergy/AdvReac Type Severity Reaction Status Date / Time naproxen AdvReac Intermediate purple Verified 08/06/22 11:58 spots on face EXAM Constitutional Vitals: Temp Pulse Resp BP Pulse Ox O2 Del Method O2 Flow Rate 98.0 F 132 H 46 H 120/96 96 Heated High Flow Nasal Cannula 40 08/06/22 11:54 08/06/22 17:14 08/06/22 17:14 08/06/22 17:14 08/06/22 17:14 08/06/22 15:45 08/06/22 15:45 DATA Data Completed and Pending Labs: Labs from last 24 hours 08/06/22 08/06/22 08/06/22 15:23 12:37 12:36 WBC RBC Hgb Hct POC Hct 45.0 MCV MCH MCHC RDW Plt Count MPV Immature Gran % (Auto) Neut % (Auto) Lymph % (Auto) Andrews % (Auto) Eos % (Auto) Baso % (Auto) Lymph # (Auto) Andrews # (Auto) Eos # (Auto) Baso # (Auto) Immature Gran # Absolute Neutrophils D-Dimer POC Sodium 143 POC Potassium 3.7 POC Chloride 101 POC Total CO2 34.0 H POC BUN 16 POC Creatinine 0.9 POC Glucose 88 POC WB Ioniz Calcium 1.17 NT-Pro-B Natriuret Pep POC Troponin I 0.16 H 0.15 H 0408/06/22 08/06/22 12:33 12:33 12:32 WBC 22.2 H RBC 5.01 Hgb 13.7 Hct 44.9 POC Hct MCV 89.6 MCH 27.3 MCHC 30.5 L RDW 14.5 Plt Count 355 MPV 10.8 Immature Gran % (Auto) 0.7 H Neut % (Auto) 90.6 H Lymph % (Auto) 4.7 L Andrews % (Auto) 3.6 Eos % (Auto) 0.2 Baso % (Auto) 0.2 Lymph # (Auto) 1.05 L Andrews # (Auto) 0.80 Eos # (Auto) 0.05 Baso # (Auto) 0.05 Immature Gran # 0.15 H Absolute Neutrophils 20.07 H D-Dimer 0.79 H POC Sodium POC Potassium POC Chloride POC Total CO2 POC BUN POC Creatinine POC Glucose POC WB Ioniz Calcium NT-Pro-B Natriuret Pep 1567.0 H POC Troponin I A/P Narrative A/P Narrative: A: #Acute on chronic hypoxic respiratory failure: 2/2 end-stage pulmonary fibrosis -Flu/Covid -no reserve, desats extremely easy #End-stage Pulmonary fibrosis exacerbation (at least 10L O2@home): #COPD / Bronchiectasis : #Chronic leukocytosis: #Sinus Tachycardia, chronic: #GERD / Rico's esophagus: #h/o colon cancer #Malnourishment: #Anemia, chronic: #Anxiety: prn ativan #Extremely Guarded prognosis given severe pulmonary fibrosis and multiple hospitalizations #Goals of care: pt hoping to make it until September, but given recent history this may be unlikely Plan: -solumedrol -Oxygen supplementation wean as able, -Scheduled xopenex/ipratropium and prn nebs, add budesonide nebs -pct pending -chest imaging if worsens -started on PO diltiazem last admit after episode of afib rvr, cont. prn IV lopressor -monitor/trend electrolyte abnormalities -Home medication reconciliation -prn Ativan -dietary consult -PT and OT -f/u closely with pulmonology -ppx: Lovenox / ppi Code status: DNR/DNI Time Spent With Patient Time: Total time spent is greater than 50% in coordination of care (as documented) at patient's floor/unit and/or counseling patient: Initial: Total time with patient: 75 - 90 minutes
[2022-08-06] MEDS ORDERED: POLYETHYLENE GLYCOL 3350 17 GM PACKET PO PRN (17:54)
[2022-08-06] MEDS ORDERED: POTASSIUM CHLORIDE 20 MEQ TABLET PO PRN ×2 (17:54)
[2022-08-06] MEDS ORDERED: ONDANSETRON 4 MG/2 ML VIAL IV PRN (17:54)
[2022-08-06] MEDS ORDERED: MAGNESIUM SULFATE 2 GM/50 ML BAG IV PRN (17:54)
[2022-08-06] MEDS ORDERED: DEXTROSE 50% 50 ML VIAL IV PRN (17:54)
[2022-08-06] MEDS ORDERED: SENNOSIDES 1 TABLET PO PRN (17:54)
[2022-08-06] MEDS ORDERED: POTASSIUM CHLORIDE 40 MEQ in DEXTROSE 5% IN WATER 500 ML IV PRN (17:54)
[2022-08-06] MEDS ORDERED: DEXTROSE 31 GM ORAL.SUSP PO PRN (17:54)
[2022-08-06] MEDS: BUDESONIDE 0.5 MG/2 ML AMPUL.NEB NEB SCH (19:51)
[2022-08-06] MEDS: LEVALBUTEROL 0.63 MG/3 ML AMPUL.NEB NEB SCH (19:51)
[2022-08-06] MEDS: IPRATROPIUM 2.5 ML AMPUL.NEB NEB SCH (19:51)
[2022-08-06] MEDS: INSULIN LISPRO 1 UNIT/0.01 ML UNIT SQ SCH (20:35)
[2022-08-06] MEDS: DOCUSATE SODIUM 100 MG CAPSULE PO SCH (20:35)
[2022-08-06] MEDS: LORazepam 2 MG/ML VIAL IV PRN (21:11)
[2022-08-06] MEDS: methylPREDNISolone SOD SUCC 125 MG/2 ML VIAL IV SCH (22:30)
[2022-08-06] MEDS: 0.9 % SODIUM CHLORIDE 10 ML SYRINGE IV SCH ×2 (22:30→23:29)
[2022-08-06] MEDS: METOPROLOL TARTRATE 5 MG/5 ML VIAL IV PRN (23:29)
[2022-08-06] MEDS: HYDROcodone/APAP 5/325MG TABLET PO PRN (23:32)
[2022-08-07] MEDS: IPRATROPIUM 2.5 ML AMPUL.NEB NEB SCH ×5 (00:55→23:40)
[2022-08-07] MEDS: LEVALBUTEROL 0.63 MG/3 ML AMPUL.NEB NEB SCH ×5 (01:10→23:40)
[2022-08-07] MEDS: LORazepam 2 MG/ML VIAL IV PRN ×2 (05:26→19:09)
[2022-08-07] MEDS: 0.9 % SODIUM CHLORIDE 10 ML SYRINGE IV SCH ×3 (05:27→22:02)
[2022-08-07] MEDS: methylPREDNISolone SOD SUCC 125 MG/2 ML VIAL IV SCH ×3 (05:36→22:01)
[2022-08-07 06:53] LABS: ALT/SGPT 27 U/L (<40); AST/SGOT 20 U/L (<40); Albumin 3.7 gm/dL (3.2-5.2); Albumin/Globulin Ratio 1.2 (1.0-2.3); Alkaline Phosphatase 98 U/L (39-117); Bilirubin,Direct < 0.2 mg/dL (0-0.3); Bilirubin,Total 0.4 mg/dL (0.1-1.0); Blood Urea Nitrogen 24 mg/dL (6-20); Calcium 9.6 mg/dL (8.6-10.4); Carbon Dioxide 32 mmol/L (22-30); Chloride 101 mmol/L (96-108); Globulin 3.2 gm/dL (2.2-3.7); Glomerular Filtration Rate 93; Glucose 123 mg/dL (70-105); Lactate Dehydrogenase 198 U/L (135-225); Triglycerides 71 mg/dL (<150)
[2022-08-07] MEDS: INSULIN LISPRO 1 UNIT/0.01 ML UNIT SQ SCH ×4 (07:51→20:49)
--- NOTE | 2022-08-07 07:59 | Internal Med Progress Note ---
SUBJECTIVE Subjective Patient information: Note initiated : 08/07/22 at 7:56 am Service Date, if different from initiated Date: [] Patient: Ned Fortune a 57 y/o M admitted on 08/06/22 for Shortness of breath. Chief Complaint: [] Interval history: History of present illness: Mr. Fortune is a 57 year old M Presents back to the ED for increased shortness of breath. 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 He has been admitted multiple times since April. He is also had multiple ED visits. He is on 10 L or more with several concentrators of oxygen at home. He is hoping to just make it to his daughters wedding in September. They have had the discussion of moving up the wedding date but it does not seem feasible per family and they say "it is what it is", knowing he will be at the wedding "one way or the other". Patient states for the past couple days he just had increasing oxygen need up to 20 L with all other concentrators. His cough is similar to what its been But his shortness of breath is noticeably worse. Vital signs in the ED showed sinus tachycardia which is common for him. He was tachypneic he was initially started on a nonrebreather but then was placed on vapotherm. In the ED Patient was given Solu-Medrol and breathing treatments. chronci leukocytosis. CTA chest showing severe pulmonary fibrosis unchanged. No PE. No edema noted Patient found to have leukocytosis of 19,000 which is chronic for him. We will check manual differential. / Ned feels like he is breathing a little better than yesterday. Less short of breath but desats quickly and easily and does take a while to bring it back. He does have typical cough. Tachycardic and tachypneic. Sounds like he had a discussion with [employer] [facility] and is likely that he will consider hospice upon discharge. Review of Systems: Pertinent positives above. Denies headache/fever/chills/nausea/vomiting/chest or abdominal pain/diarrhea. PHYSICAL EXAM General: Alert, Awake, No acute Distress Eyes/N/T: EOMI, no scleral icterus, Head/Neck: neck supple, full ROM, CV: Tachycardic but regular, No murmurs, Pulm: mild fine Rales b/l, no wheezing Abd: soft, nontender, +BS x4 Ext: no clubbing/cyanosis/edema, nontender Neuro: Alert, no focal deficits, moves all extremities, sensations intact b/l upper/lower Psychiatric: Skin: warm/dry, normal color Constitutional Vitals: Vital Signs Temp Pulse Resp BP Pulse Ox O2 Del Method O2 Flow Rate 97.8 F 97 H 19 106/88 96 Heated High Flow Nasal Cannula 50 08/07/22 04:01 08/07/22 07:19 08/07/22 07:19 08/07/22 04:01 08/07/22 07:19 08/07/22 07:19 08/07/22 07:19 Period Temp Pulse Resp BP Sys/Ashraf Pulse Ox O2 Del Method O2 Flow Rate Last 24 Hr 97.8 F-99.0 F 74-132 19-64 96-152/79-108 84-100 Heated High Flow Nasal Sa-Mfu-Sxdpzuuoev Mask 40-50 Intake and Output 08/06/22 08/07/22 08/07/22 19:59 03:59 11:59 Intake Total 360 120 Output Total 250 225 Balance -250 135 120 Weight 45.178 kg Intake & Output: Intake & Output 08/06/22 08/07/22 08/07/22 19:59 03:59 11:59 Intake Total 360 120 Output Total 250 225 Balance -250 135 120 Weight 45.178 kg Intake: Oral 360 120 Output: Void Amount 250 225 Other: Urine Appearance Clear Clear Urine Color Yellow Bright Yellow Urine Odor Normal OBJ DATA Labs 08/06/22 12:33 08/07/22 05:26 Labs: Abnormal Lab Results 08/07/22 08/06/22 08/06/22 05:26 15:23 12:37 WBC MCHC Immature Gran % (Auto) Neut % (Auto) Lymph % (Auto) Lymph # (Auto) Immature Gran # Absolute Neutrophils D-Dimer Carbon Dioxide 32 H POC Total CO2 BUN 24 H Glucose 123 H Phosphorus 5.0 H NT-Pro-B Natriuret Pep POC Troponin I 0.16 H 0.15 H 08/06/22 08/06/22 08/06/22 12:36 12:33 12:33 WBC 22.2 H MCHC 30.5 L Immature Gran % (Auto) 0.7 H Neut % (Auto) 90.6 H Lymph % (Auto) 4.7 L Lymph # (Auto) 1.05 L Immature Gran # 0.15 H Absolute Neutrophils 20.07 H D-Dimer Carbon Dioxide POC Total CO2 34.0 H BUN Glucose Phosphorus NT-Pro-B Natriuret Pep 1567.0 H POC Troponin I 08/06/22 12:32 WBC MCHC Immature Gran % (Auto) Neut % (Auto) Lymph % (Auto) Lymph # (Auto) Immature Gran # Absolute Neutrophils D-Dimer 0.79 H Carbon Dioxide POC Total CO2 BUN Glucose Phosphorus NT-Pro-B Natriuret Pep POC Troponin I Meds: Medications Acetaminophen (Acetaminophen 325 Mg Tablet) 650 mg PO Q6HP PRN PRN Reason: fever > 101 Hydrocodone Bitart/Acetaminophen (Hydrocodone/Apap 5/325mg Tablet) 1 tab PO Q4HP PRN PRN Reason: PAIN LEVEL 3-6 Last Admin: 08/06/22 23:32 Dose: 1 tab Budesonide (Budesonide 0.5 Mg/2 Ml Ampul.Neb) 0.5 mg NEB Q12 NANCY Last Admin: 08/06/22 19:51 Dose: 0.5 mg Dextrose (Dextrose 50% 50 Ml Vial) 0 ml IV UD PRN PRN Reason: Per Sliding Scale Diagnostic Test (Pha) (Accu-Chek 1 Each Strip) 1 each FS ACHS [facility] Last Admin: 08/07/22 07:50 Dose: 1 each Docusate Sodium (Docusate Sodium 100 Mg Capsule) 100 mg PO BID NANCY Last Admin: 08/06/22 20:35 Dose: 100 mg Enoxaparin Sodium (Enoxaparin 30 Mg/0.3 Ml Syringe) 30 mg SQ DAILY [facility] Glucose (Dextrose 31 Gm Oral.Susp) 15 gm PO PRN PRN PRN Reason: Hypoglycemia Potassium Chloride 40 meq/ (Dextrose) 520 mls @ 130 mls/hr IV UD PRN PRN Reason: Potassium Level < 3 Magnesium Sulfate (Magnesium Sulfate) 2 gm in 50 mls @ 25 mls/hr IV UD PRN PRN Reason: Magnesium Level </= 1.6 Insulin Human Lispro (Insulin Lispro 1 Unit/0.01 Ml Unit) 0 unit SQ ACHS NANCY; P rotocol Last Admin: 08/07/22 07:51 Dose: Not Given Ipratropium [place] (Ipratropium 2.5 Ml Ampul.Neb) 2.5 ml NEB Q6HRT [facility] Last Admin: 08/07/22 06:57 Dose: 2.5 ml Levalbuterol HCl (Levalbuterol 0.63 Mg/3 Ml Ampul.Neb) 1.25 mg NEB Q6HRT [facility] Last Admin: 08/07/22 06:56 Dose: 1.25 mg Lorazepam (Lorazepam 2 Mg/Ml Vial) 0.5 mg IV Q6HP PRN PRN Reason: ANXIETY/SEDATION Last Admin: 08/07/22 05:26 Dose: 0.5 mg Methylprednisolone Sodium Succinate (Methylprednisolone Sod Succ 125 Mg/2 Ml Vial) 62.5 mg IV Q8 [facility] Last Admin: 08/07/22 05:36 Dose: 62.5 mg Metoprolol Tartrate (Metoprolol Tartrate 5 Mg/5 Ml Vial) 5 mg IV Q2HP PRN PRN Reason: Tachyarrhythmias HR>110 Last Admin: 08/06/22 23:29 Dose: 5 mg Ondansetron HCl (Ondansetron 4 Mg/2 Ml Vial) 4 mg IV Q4HP PRN PRN Reason: Nausea And Vomiting Polyethylene Glycol (Polyethylene Glycol 3350 17 Gm Packet) 17 gm PO DAILYP PRN PRN Reason: Constipation Potassium Chloride (Potassium Chloride 20 Meq Tablet) 40 meq PO UD PRN PRN Reason: Potassium Level of 3-3.5 Potassium Chloride (Potassium Chloride 20 Meq Tablet) 40 meq PO UD PRN PRN Reason: Potassium Level < 3 Senna (Sennosides 1 Tablet) 2 tab PO DAILYP PRN PRN Reason: Constipation Last Admin: 08/06/22 20:35 Dose: 2 tab Sodium Chloride (0.9 % Sodium Chloride 10 Ml Syringe) 10 ml IV Q8 [facility] Last Admin: 08/07/22 05:27 Dose: 10 ml A/P Narrative A/P Narrative: A: #Acute on chronic hypoxic respiratory failure: 2/2 end-stage pulmonary fibrosis -Flu/Covid, pct low -no reserve, desats extremely easy -on vapotherm 50lpm/70% #End-stage Pulmonary fibrosis exacerbation (at least 10L O2@home): #COPD / Bronchiectasis : #Chronic leukocytosis: #Sinus Tachycardia, chronic: #GERD / Rico's esophagus: #h/o colon cancer #Malnourishment: #Anemia, chronic: #Anxiety: prn ativan #Extremely Guarded prognosis given severe pulmonary fibrosis and multiple hospitalizations #Goals of care: pt hoping to make it until September, but given recent history this may be unlikely Plan: -solumedrol (wean) -Oxygen supplementation wean as able, -Scheduled xopenex/ipratropium and prn nebs, add budesonide nebs -chest imaging if worsens -started on PO diltiazem last admit after episode of afib rvr, cont. prn IV lopressor -monitor/trend electrolyte abnormalities -prn Ativan -dietary consult -PT and OT -f/u closely with pulmonology -ppx: Lovenox / ppi Code status: DNR/DNI Time Spent With Patient Time: Total time spent is greater than 50% in coordination of care (as documented) at patient's floor/unit and/or counseling patient: Subsequent: Total time with patient: 50 - 65 Minutes QUALITY Stroke Symptom Onset Unknown: No VTE Deep Vein Thrombosis/Pulmonary Embolism Present on Admission: No
[2022-08-07] MEDS: OMEPRAZOLE 20 MG CAPSULE PO SCH (08:11)
[2022-08-07] MEDS ORDERED: SODIUM CHLORIDE NASAL 1 SPRAY BOTTLE NAS PRN (08:25)
[2022-08-07] MEDS ORDERED: BUDESONIDE 0.5 MG/2 ML AMPUL.NEB NEB SCH (09:00)
[2022-08-07] MEDS: DILTIAZEM 30 MG TABLET PO SCH ×3 (09:15→20:49)
[2022-08-07] MEDS: Umeclidinium-Vilanterol [Anoro Ellipta] 62.5-25 mcg Inhaler INH SCH (09:16)
[2022-08-07] MEDS: ENOXAPARIN 30 MG/0.3 ML SYRINGE SQ SCH (09:16)
[2022-08-07] MEDS: FLUTICASONE PROPIONATE SPRAY.NAS NS SCH (09:16)
[2022-08-07] MEDS: DOCUSATE SODIUM 100 MG CAPSULE PO SCH ×2 (09:16→20:49)
[2022-08-07] MEDS: LORazepam 0.5 MG TABLET PO PRN ×3 (09:17→23:15)
[2022-08-07] MEDS: BUDESONIDE 0.5 MG/2 ML AMPUL.NEB NEB SCH ×2 (09:17→19:00)
[2022-08-07] MEDS: CETIRIZINE 10 MG TABLET PO SCH (09:17)
[2022-08-07] MEDS: METOPROLOL TARTRATE 5 MG/5 ML VIAL IV PRN (13:13)
--- NOTE | 2022-08-07 13:29 | EKG ---
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 Measurements Intervals [place] Rate: 82 P: 33 CO: 120 QRS: -1 QRSD: 83 T: -44 QT: 391 QTc: 456 Interpretive Statements Sinus rhythm Abnormal T, consider ischemia, diffuse leads Electronically Signed On 08-07-2022 13:28:35 PDT by Pardeep Beal M.D. /[email or web address]/[id number]
--- NOTE | 2022-08-07 13:34 | EKG ---
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 Measurements Intervals [place] Rate: 103 P: 31 KS: 111 QRS: -12 QRSD: 76 T: -44 QT: 352 QTc: 462 Interpretive Statements Sinus tachycardia Repol abnrm suggests ischemia, anterolateral Electronically Signed On 08-07-2022 13:34:02 PDT by Pardeep Beal M.D. /[email or web address]/[id number]
[2022-08-07] MEDS: ACETAMINOPHEN 325 MG TABLET PO PRN (23:15)
[2022-08-08] MEDS: methylPREDNISolone SOD SUCC 125 MG/2 ML VIAL IV SCH (05:23)
[2022-08-08] MEDS: 0.9 % SODIUM CHLORIDE 10 ML SYRINGE IV SCH ×3 (05:23→23:34)
--- NOTE | 2022-08-08 07:17 | Internal Med Progress Note ---
SUBJECTIVE Subjective Patient information: Note initiated : 08/08/22 at 7:16 am Service Date, if different from initiated Date: [] Patient: Ned Fortune a 57 y/o M admitted on 08/06/22 for Shortness of breath. Chief Complaint: [] Interval history: History of present illness: Mr. Fortune is a 57 year old M Presents back to the ED for increased shortness of breath. 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 He has been admitted multiple times since April. He is also had multiple ED visits. He is on 10 L or more with several concentrators of oxygen at home. He is hoping to just make it to his daughters wedding in September. They have had the discussion of moving up the wedding date but it does not seem feasible per family and they say "it is what it is", knowing he will be at the wedding "one way or the other". Patient states for the past couple days he just had increasing oxygen need up to 20 L with all other concentrators. His cough is similar to what its been But his shortness of breath is noticeably worse. Vital signs in the ED showed sinus tachycardia which is common for him. He was tachypneic he was initially started on a nonrebreather but then was placed on vapotherm. In the ED Patient was given Solu-Medrol and breathing treatments. chronci leukocytosis. CTA chest showing severe pulmonary fibrosis unchanged. No PE. No edema noted Patient found to have leukocytosis of 19,000 which is chronic for him. We will check manual differential. / Ned feels like he is breathing a little better than yesterday. Less short of breath but desats quickly and easily and does take a while to bring it back. He does have typical cough. Tachycardic and tachypneic. Sounds like he had a discussion with [facility] and is likely that he will consider hospice upon discharge. 08/08 No acute events overnight. Patient feeling all right. Slowly and gradually weaning down his oxygen requirements. Has cough and shortness of breath but stable. Review of Systems: Pertinent positives above. Denies headache/fever/chills/nausea/vomiting/chest or abdominal pain/diarrhea. PHYSICAL EXAM General: Alert, Awake, No acute Distress Eyes/N/T: EOMI, no scleral icterus, Head/Neck: neck supple, full ROM, CV: Tachycardic but regular, No murmurs, Pulm: mild fine Rales b/l, no wheezing Abd: soft, nontender, +BS x4 Ext: no clubbing/cyanosis/edema, nontender Neuro: Alert, no focal deficits, moves all extremities, sensations intact b/l upper/lower Psychiatric: Skin: warm/dry, normal color Constitutional Vitals: Vital Signs Temp Pulse Resp BP Pulse Ox O2 Del Method O2 Flow Rate 98.6 F 108 H 27 H 100/81 94 Heated High Flow Nasal Cannula 50 08/07/22 23:23 08/08/22 06:01 08/08/22 06:01 08/08/22 06:01 08/08/22 06:01 08/08/22 06:01 08/08/22 06:01 Period Temp Pulse Resp BP Sys/Ashraf Pulse Ox O2 Del Method O2 Flow Rate Last 24 Hr 97.8 F-98.7 F 95-139 19-93 95-121/61-95 91-100 Heated High Flow Nasal Ca-Heated High Flow Nasal Ca 50-55 Intake and Output 08/07/22 08/08/22 08/08/22 19:59 03:59 11:59 Intake Total 720 700 125 Output Total 450 100 151 Balance 270 600 -26 Weight 46.72 kg Intake & Output: Intake & Output 08/07/22 08/08/22 08/08/22 19:59 03:59 11:59 Intake Total 720 700 125 Output Total 450 100 151 Balance 270 600 -26 Weight 46.72 kg Intake: Oral 720 700 125 Output: Void Amount 450 100 150 # of times incontinent of urine 1 Other: Meal Dinner Percent of Meal Consumed 100% Feeding Ability Assist with Tray Set Up Urine Appearance Clear Clear Urine Color Dark Yellow Dark Yellow Urine Odor Normal Normal Stool Size Large Stool Color Brown Stool Consistency Formed OBJ DATA Labs 08/06/22 12:33 08/08/22 05:22 Labs: Abnormal Lab Results 08/07/22 08/06/22 08/06/22 05:26 15:23 12:37 WBC MCHC Immature Gran % (Auto) Neut % (Auto) Lymph % (Auto) Lymph # (Auto) Immature Gran # Absolute Neutrophils D-Dimer Carbon Dioxide 32 H POC Total CO2 BUN 24 H Glucose 123 H Phosphorus 5.0 H NT-Pro-B Natriuret Pep POC Troponin I 0.16 H 0.15 H 08/06/22 08/06/22 08/06/22 12:36 12:33 12:33 WBC 22.2 H MCHC 30.5 L Immature Gran % (Auto) 0.7 H Neut % (Auto) 90.6 H Lymph % (Auto) 4.7 L Lymph # (Auto) 1.05 L Immature Gran # 0.15 H Absolute Neutrophils 20.07 H D-Dimer Carbon Dioxide POC Total CO2 34.0 H BUN Glucose Phosphorus NT-Pro-B Natriuret Pep 1567.0 H POC Troponin I 08/06/22 12:32 WBC MCHC Immature Gran % (Auto) Neut % (Auto) Lymph % (Auto) Lymph # (Auto) Immature Gran # Absolute Neutrophils D-Dimer 0.79 H Carbon Dioxide POC Total CO2 BUN Glucose Phosphorus NT-Pro-B Natriuret Pep POC Troponin I Meds: Medications Acetaminophen (Acetaminophen 325 Mg Tablet) 650 mg PO Q6HP PRN PRN Reason: fever > 101 Last Admin: 08/07/22 23:15 Dose: 650 mg Hydrocodone Bitart/Acetaminophen (Hydrocodone/Apap 5/325mg Tablet) 1 tab PO Q4HP PRN PRN Reason: PAIN LEVEL 3-6 Last Admin: 08/06/22 23:32 Dose: 1 tab Budesonide (Budesonide 0.5 Mg/2 Ml Ampul.Neb) 0.5 mg NEB Q12 [facility] Last Admin: 08/07/22 19:00 Dose: 0.5 mg Cetirizine HCl (Cetirizine 10 Mg Tablet) 10 mg PO DAILY [facility] Last Admin: 08/07/22 09:17 Dose: 10 mg Dextrose (Dextrose 50% 50 Ml Vial) 0 ml IV UD PRN PRN Reason: Per Sliding Scale Diagnostic Test (Pha) (Accu-Chek 1 Each Strip) 1 each FS ACHS [facility] Last Admin: 08/07/22 20:48 Dose: 1 each Diltiazem HCl (Diltiazem 30 Mg Tablet) 30 mg PO TID [facility] Last Admin: 08/07/22 20:49 Dose: 30 mg Diphenhydramine HCl (Diphenhydramine 25 Mg Capsule) 0 mg PO BIDP PRN PRN Reason: Allergic Symptoms Docusate Sodium (Docusate Sodium 100 Mg Capsule) 100 mg PO BID [facility] Last Admin: 08/07/22 20:49 Dose: Not Given Enoxaparin Sodium (Enoxaparin 30 Mg/0.3 Ml Syringe) 30 mg SQ DAILY [facility] Last Admin: 08/07/22 09:16 Dose: 30 mg Fluticasone Propionate (Fluticasone Propionate [place].Lisbeth) 2 spray NS QDAY [facility] Last Admin: 08/07/22 09:16 Dose: 2 spray Glucose (Dextrose 31 Gm Oral.Susp) 15 gm PO PRN PRN PRN Reason: Hypoglycemia Potassium Chloride 40 meq/ (Dextrose) 520 mls @ 130 mls/hr IV UD PRN PRN Reason: Potassium Level < 3 Magnesium Sulfate (Magnesium Sulfate) 2 gm in 50 mls @ 25 mls/hr IV UD PRN PRN Reason: Magnesium Level </= 1.6 Insulin Human Lispro (Insulin Lispro 1 Unit/0.01 Ml Unit) 0 unit SQ ACHS [facility]; Protocol Last Admin: 08/07/22 20:49 Dose: Not Given Ipratropium [place] (Ipratropium 2.5 Ml Ampul.Neb) 2.5 ml NEB Q6HRT [facility] Last Admin: 08/07/22 23:40 Dose: 2.5 ml Levalbuterol HCl (Levalbuterol 0.63 Mg/3 Ml Ampul.Neb) 1.25 mg NEB Q6HRT [facility] Last Admin: 08/07/22 23:40 Dose: 1.25 mg Lorazepam (Lorazepam 2 Mg/Ml Vial) 0.5 mg IV Q6HP PRN PRN Reason: ANXIETY/SEDATION Last Admin: 08/07/22 19:09 Dose: 0.5 mg Lorazepam (Lorazepam 0.5 Mg Tablet) 0 mg PO TIDP PRN PRN Reason: anxiety Last Admin: 08/07/22 23:15 Dose: 0.5 mg Methylprednisolone Sodium Succinate (Methylprednisolone Sod Succ 125 Mg/2 Ml Vial) 62.5 mg IV Q8 [facility] Last Admin: 08/08/22 05:23 Dose: 62.5 mg Metoprolol Tartrate (Metoprolol Tartrate 5 Mg/5 Ml Vial) 5 mg IV Q2HP PRN PRN Reason: Tachyarrhythmias HR>110 Last Admin: 08/07/22 13:13 Dose: 5 mg Omeprazole (Omeprazole 20 Mg Capsule) 40 mg PO ACB [facility] Last Admin: 08/07/22 08:11 Dose: 40 mg Ondansetron HCl (Ondansetron 4 Mg/2 Ml Vial) 4 mg IV Q4HP PRN PRN Reason: Nausea And Vomiting Umeclidinium- Vilanterol [Anoro Ellipta] 62.5-25 Mcg Inhaler 1 dose INH DAILY [facility] Last Admin: 08/07/22 09:16 Dose: 1 dose Polyethylene Glycol (Polyethylene Glycol 3350 17 Gm Packet) 17 gm PO DAILYP PRN PRN Reason: Constipation Potassium Chloride (Potassium Chloride 20 Meq Tablet) 40 meq PO UD PRN PRN Reason: Potassium Level of 3-3.5 Potassium Chloride (Potassium Chloride 20 Meq Tablet) 40 meq PO UD PRN PRN Reason: Potassium Level < 3 Senna (Sennosides 1 Tablet) 2 tab PO DAILYP PRN PRN Reason: Constipation Last Admin: 08/06/22 20:35 Dose: 2 tab Sodium Chloride (0.9 % Sodium Chloride 10 Ml Syringe) 10 ml IV Q8 [facility] Last Admin: 08/08/22 05:23 Dose: 10 ml Sodium Chloride (Sodium Chloride Nasal 1 [place] Bottle) 2 spray LISBETH Q4HP PRN PRN Reason: Congestion A/P Narrative A/P Narrative: A: #Acute on chronic hypoxic respiratory failure: 2/2 end-stage pulmonary fibrosis -Flu/Covid, pct low -no reserve, desats extremely easy -on vapotherm 50lpm/60% #End-stage Pulmonary fibrosis exacerbation (at least 10L O2@home): #COPD / Bronchiectasis : #Chronic leukocytosis: #Sinus Tachycardia, chronic: #GERD / Rico's esophagus: #h/o colon cancer #Malnourishment: #Anemia, chronic: #Anxiety: prn ativan #Extremely Guarded prognosis given severe pulmonary fibrosis and multiple hospitalizations #Goals of care: pt hoping to make it until September, but given recent history this may be unlikely Plan: -solumedrol (wean) -Oxygen supplementation wean as able, -Scheduled xopenex/ipratropium and prn nebs, add budesonide nebs -chest imaging if worsens -started on PO diltiazem last admit after episode of afib rvr, cont and prn IV lopressor -monitor/trend electrolyte abnormalities -prn Ativan -dietary consult -PT and OT -f/u closely with pulmonology -ppx: Lovenox / ppi Code status: DNR/DNI Time Spent With Patient Time: Total time spent is greater than 50% in coordination of care (as documented) at patient's floor/unit and/or counseling patient: Subsequent: Total time with patient: 50 - 65 Minutes QUALITY Stroke Symptom Onset Unknown: No VTE Deep Vein Thrombosis/Pulmonary Embolism Present on Admission: No
[2022-08-08 07:41] LABS: ALT/SGPT 44 U/L (<40); AST/SGOT 27 U/L (<40); Albumin 3.3 gm/dL (3.2-5.2); Albumin/Globulin Ratio 1.2 (1.0-2.3); Alkaline Phosphatase 92 U/L (39-117); Bilirubin,Direct < 0.2 mg/dL (0-0.3); Bilirubin,Total 0.3 mg/dL (0.1-1.0); Blood Urea Nitrogen 26 mg/dL (6-20); Calcium 8.7 mg/dL (8.6-10.4); Carbon Dioxide 29 mmol/L (22-30); Chloride 100 mmol/L (96-108); Globulin 2.7 gm/dL (2.2-3.7); Glomerular Filtration Rate 103; Glucose 117 mg/dL (70-105); Lactate Dehydrogenase 195 U/L (135-225); Phosphorous 4.4 mg/dL (2.5-4.5); Triglycerides 86 mg/dL (<150); Uric Acid 4.5 mg/dL (2.5-8.0)
[2022-08-08] MEDS: INSULIN LISPRO 1 UNIT/0.01 ML UNIT SQ SCH ×4 (07:54→21:07)
[2022-08-08] MEDS: OMEPRAZOLE 20 MG CAPSULE PO SCH (07:55)
[2022-08-08] MEDS: IPRATROPIUM 2.5 ML AMPUL.NEB NEB SCH ×3 (08:12→19:36)
[2022-08-08] MEDS: LEVALBUTEROL 0.63 MG/3 ML AMPUL.NEB NEB SCH ×3 (08:13→19:35)
[2022-08-08] MEDS: BUDESONIDE 0.5 MG/2 ML AMPUL.NEB NEB SCH ×2 (08:13→19:35)
[2022-08-08] MEDS: DOCUSATE SODIUM 100 MG CAPSULE PO SCH ×2 (08:56→21:06)
[2022-08-08] MEDS: DILTIAZEM 30 MG TABLET PO SCH ×3 (08:56→21:06)
[2022-08-08] MEDS: FLUTICASONE PROPIONATE SPRAY.NAS NS SCH (08:57)
[2022-08-08] MEDS: ENOXAPARIN 30 MG/0.3 ML SYRINGE SQ SCH (08:57)
[2022-08-08] MEDS: CETIRIZINE 10 MG TABLET PO SCH (08:57)
[2022-08-08] MEDS: Umeclidinium-Vilanterol [Anoro Ellipta] 62.5-25 mcg Inhaler INH SCH (08:57)
[2022-08-08] MEDS: methylPREDNISolone SOD SUCC 40 MG/ML VIAL IV SCH ×2 (14:15→23:21)
--- NOTE | 2022-08-08 18:12 | Internal Med Progress Note ---
SUBJECTIVE Subjective Patient information: Note initiated : 08/08/22 at 6:08 pm Service Date, if different from initiated Date: [] Patient: Ned Fortune a 57 y/o M admitted on 08/06/22 for Shortness of breath. Chief Complaint: [] Interval history: History of present illness: Mr. Fortune is a 57 year old M Presents back to the ED for increased shortness of breath. 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 He has been admitted multiple times since April. He is also had multiple ED visits. He is on 10 L or more with several concentrators of oxygen at home. He is hoping to just make it to his daughters wedding in September. They have had the discussion of moving up the wedding date but it does not seem feasible per family and they say "it is what it is", knowing he will be at the wedding "one way or the other". Patient states for the past couple days he just had increasing oxygen need up to 20 L with all other concentrators. His cough is similar to what its been But his shortness of breath is noticeably worse. Vital signs in the ED showed sinus tachycardia which is common for him. He was tachypneic he was initially started on a nonrebreather but then was placed on vapotherm. In the ED Patient was given Solu-Medrol and breathing treatments. chronci leukocytosis. CTA chest showing severe pulmonary fibrosis unchanged. No PE. No edema noted Patient found to have leukocytosis of 19,000 which is chronic for him. We will check manual differential. 08/07 Ned feels like he is breathing a little better than yesterday. Less short of breath but desats quickly and easily and does take a while to bring it back. He does have typical cough. Tachycardic and tachypneic. Sounds like he had a discussion with [facility] and is likely that he will consider hospice upon discharge. 08/08 No acute events overnight. Patient feeling all right. Slowly and gradually weaning down his oxygen requirements. Has cough and shortness of breath but stable. 08/09 Continues on Vapotherm with a FiO2 of 70%, 50 L/min flow rate. Discussed guarded prognosis and uncertain trajectory of his acute on chronic illness. Patient is considering hospice however wants to continue current cares in hopes that he will improve enough to discharge home. Continues on Solu-Medrol IV. Physical exam Head: Atraumatic, normal inspection. Eyes: normal appearance, no scleral icterus. Neck: full ROM Respiratory: Requiring Vapotherm, rapid desaturation with minimal activity Cardiovascular: Tachycardia, S1, S2. GI/Abdominal: soft, nontender, no guarding. Extremities: full range of motion, nontender. Neurological: CN II-XII intact, intact motor, intact sensation. Psychiatric: normal mood. Skin: warm, normal color Constitutional Vitals: Vital Signs Temp Pulse Resp BP Pulse Ox O2 Del Method O2 Flow Rate 99.0 F 125 H 41 H 106/86 95 Heated High Flow Nasal Cannula 50 08/08/22 16:01 08/08/22 16:01 08/08/22 16:01 08/08/22 16:01 08/08/22 16:01 08/08/22 16:01 08/08/22 16:01 Period Temp Pulse Resp BP Sys/Ashraf Pulse Ox O2 Del Method O2 Flow Rate Last 24 Hr 98.4 F-99.0 F 97-140 19-93 95-119/61-95 91-100 Heated High Flow Nasal Ca-Heated High Flow Nasal Ca 50-55 Intake and Output 08/08/22 08/08/22 08/08/22 03:59 11:59 19:59 Intake Total 700 605 720 Output Total 100 576 350 Balance 600 29 370 Weight 46.72 kg 46.72 kg Patient Weight 08/09/22 03:59 Weight 46.72 kg Intake & Output: Intake & Output 08/08/22 08/08/22 08/08/22 03:59 11:59 19:59 Intake Total 700 605 720 Output Total 100 576 350 Balance 600 29 370 Weight 46.72 kg 46.72 kg Intake: Oral 700 605 720 Output: Void Amount 100 575 350 # of times incontinent of urine 1 Other: Meal Breakfast Lunch Percent of Meal Consumed 100% 100% Feeding Ability Assist with Tray Set Up Urine Appearance Clear Clear Urine Color Dark Yellow Yellow Urine Odor Normal Normal Stool Size Large Stool Color Brown Stool Consistency Formed OBJ DATA Labs 08/06/22 12:33 08/09/22 05:28 Labs: Abnormal Lab Results 08/08/22 08/07/22 08/06/22 05:22 05:26 15:23 WBC MCHC Immature Gran % (Auto) Neut % (Auto) Lymph % (Auto) Lymph # (Auto) Immature Gran # Absolute Neutrophils D-Dimer Carbon Dioxide 32 H POC Total CO2 BUN 26 H 24 H Glucose 117 H 123 H Phosphorus 5.0 H ALT 44 H NT-Pro-B Natriuret Pep POC Troponin I 0.16 H 08/06/22 08/06/22 08/06/22 12:37 12:36 12:33 WBC MCHC Immature Gran % (Auto) Neut % (Auto) Lymph % (Auto) Lymph # (Auto) Immature Gran # Absolute Neutrophils D-Dimer Carbon Dioxide POC Total CO2 34.0 H BUN Glucose Phosphorus ALT NT-Pro-B Natriuret Pep 1567.0 H POC Troponin I 0.15 H 08/06/22 08/06/22 12:33 12:32 WBC 22.2 H MCHC 30.5 L Immature Gran % (Auto) 0.7 H Neut % (Auto) 90.6 H Lymph % (Auto) 4.7 L Lymph # (Auto) 1.05 L Immature Gran # 0.15 H Absolute Neutrophils 20.07 H D-Dimer 0.79 H Carbon Dioxide POC Total CO2 BUN Glucose Phosphorus ALT NT-Pro-B Natriuret Pep POC Troponin I Meds: Medications Acetaminophen (Acetaminophen 325 Mg Tablet) 650 mg PO Q6HP PRN PRN Reason: fever > 101 Last Admin: 08/07/22 23:15 Dose: 650 mg Hydrocodone Bitart/Acetaminophen (Hydrocodone/Apap 5/325mg Tablet) 1 tab PO Q 4HP PRN PRN Reason: PAIN LEVEL 3-6 Last Admin: 08/06/22 23:32 Dose: 1 tab Budesonide (Budesonide 0.5 Mg/2 Ml Ampul.Neb) 0.5 mg NEB Q12 [facility] Last Admin: 08/08/22 08:13 Dose: 0.5 mg Cetirizine HCl (Cetirizine 10 Mg Tablet) 10 mg PO DAILY [facility] Last Admin: 08/08/22 08:57 Dose: 10 mg Dextrose (Dextrose 50% 50 Ml Vial) 0 ml IV UD PRN PRN Reason: Per Sliding Scale Diagnostic Test (Pha) (Accu-Chek 1 Each Strip) 1 each FS ACHS [facility] Last Admin: 08/08/22 12:30 Dose: 1 each Diltiazem HCl (Diltiazem 30 Mg Tablet) 30 mg PO TID [facility] Last Admin: 08/08/22 14:16 Dose: 30 mg Diphenhydramine HCl (Diphenhydramine 25 Mg Capsule) 0 mg PO BIDP PRN PRN Reason: Allergic Symptoms Docusate Sodium (Docusate Sodium 100 Mg Capsule) 100 mg PO BID [facility] Last Admin: 08/08/22 08:56 Dose: Not Given Enoxaparin Sodium (Enoxaparin 30 Mg/0.3 Ml Syringe) 30 mg SQ DAILY [facility] Last Admin: 08/08/22 08:57 Dose: 30 mg Fluticasone Propionate (Fluticasone Propionate [place].Lisbeth) 2 spray NS QDAY [facility] Last Admin: 08/08/22 08:57 Dose: 2 spray Glucose (Dextrose 31 Gm Oral.Susp) 15 gm PO PRN PRN PRN Reason: Hypoglycemia Potassium Chloride 40 meq/ (Dextrose) 520 mls @ 130 mls/hr IV UD PRN PRN Reason: Potassium Level < 3 Magnesium Sulfate (Magnesium Sulfate) 2 gm in 50 mls @ 25 mls/hr IV UD PRN PRN Reason: Magnesium Level </= 1.6 Insulin Human Lispro (Insulin Lispro 1 Unit/0.01 Ml Unit) 0 unit SQ ACHS [facility]; Protocol Last Admin: 08/08/22 12:30 Dose: Not Given Ipratropium [place] (Ipratropium 2.5 Ml Ampul.Neb) 2.5 ml NEB Q6HRT [facility] Last Admin: 08/08/22 13:04 Dose: 2.5 ml Levalbuterol HCl (Levalbuterol 0.63 Mg/3 Ml Ampul.Neb) 1.25 mg NEB Q6HRT [facility] Last Admin: 08/08/22 13:03 Dose: 1.25 mg Lorazepam (Lorazepam 2 Mg/Ml Vial) 0.5 mg IV Q6HP PRN PRN Reason: ANXIETY/SEDATION Last Admin: 08/07/22 19:09 Dose: 0.5 mg Lorazepam (Lorazepam 0.5 Mg Tablet) 0 mg PO TIDP PRN PRN Reason: anxiety Last Admin: 08/07/22 23:15 Dose: 0.5 mg Methylprednisolone Sodium Succinate (Methylprednisolone Sod Succ 40 Mg/Ml Vial) 40 mg IV Q8 [facility] Last Admin: 08/08/22 14:15 Dose: 40 mg Metoprolol Tartrate (Metoprolol Tartrate 5 Mg/5 Ml Vial) 5 mg IV Q2HP PRN PRN Reason: Tachyarrhythmias HR>110 Last Admin: 08/07/22 13:13 Dose: 5 mg Omeprazole (Omeprazole 20 Mg Capsule) 40 mg PO ACB [facility] Last Admin: 08/08/22 07:55 Dose: 40 mg Ondansetron HCl (Ondansetron 4 Mg/2 Ml Vial) 4 mg IV Q4HP PRN PRN Reason: Nausea And Vomiting Umeclidinium- Vilanterol [Anoro Ellipta] 62.5-25 Mcg Inhaler 1 dose INH DAILY [facility] Last Admin: 08/08/22 08:57 Dose: 1 dose Polyethylene Glycol (Polyethylene Glycol 3350 17 Gm Packet) 17 gm PO DAILYP PRN PRN Reason: Constipation Potassium Chloride (Potassium Chloride 20 Meq Tablet) 40 meq PO UD PRN PRN Reason: Potassium Level of 3-3.5 Potassium Chloride (Potassium Chloride 20 Meq Tablet) 40 meq PO UD PRN PRN Reason: Potassium Level < 3 Senna (Sennosides 1 Tablet) 2 tab PO DAILYP PRN PRN Reason: Constipation Last Admin: 08/06/22 20:35 Dose: 2 tab Sodium Chloride (0.9 % Sodium Chloride 10 Ml Syringe) 10 ml IV Q8 [facility] Last Admin: 08/08/22 14:15 Dose: 10 ml Sodium Chloride (Sodium Chloride Nasal 1 [place] Bottle) 2 spray LISBETH Q4HP PRN PRN Reason: Congestion A/P Narrative A/P Narrative: Assessment: #Acute on chronic hypoxic respiratory failure: 2/2 end-stage pulmonary fibrosis #End-stage Pulmonary fibrosis exacerbation (at least 10L O2@home): #COPD / Bronchiectasis : #Chronic leukocytosis: #Sinus Tachycardia, chronic: #GERD / Rico's esophagus: #h/o colon cancer #Malnourishment: #Anemia, chronic: #Anxiety: prn ativan #Guarded prognosis given severe pulmonary fibrosis and multiple hospitalizations Plan: -Solumedrol 40 mg IV every 8 hours. -Oxygen supplementation wean as able, -Scheduled xopenex/ipratropium and prn nebs, add budesonide nebs -chest imaging if worsens -PO diltiazem last admit after episode of afib rvr, cont and prn IV lopressor -monitor/trend electrolyte abnormalities -prn Ativan -dietary consult -PT and OT -DVT prophylaxis: Lovenox -Code status: DNR/DNI Time Spent With Patient Time: Total time spent is greater than 50% in coordination of care (as documented) at patient's floor/unit and/or counseling patient: QUALITY Stroke Symptom Onset Unknown: No VTE Deep Vein Thrombosis/Pulmonary Embolism Present on Admission: No
[2022-08-08] MEDS: LORazepam 0.5 MG TABLET PO PRN (23:22)
[2022-08-09] MEDS: LEVALBUTEROL 0.63 MG/3 ML AMPUL.NEB NEB SCH ×4 (01:03→19:30)
[2022-08-09] MEDS: IPRATROPIUM 2.5 ML AMPUL.NEB NEB SCH ×4 (01:03→19:30)
[2022-08-09] MEDS: 0.9 % SODIUM CHLORIDE 10 ML SYRINGE IV SCH ×3 (05:41→22:18)
[2022-08-09] MEDS: methylPREDNISolone SOD SUCC 40 MG/ML VIAL IV SCH ×3 (05:42→22:01)
[2022-08-09 06:30] LABS: ALT/SGPT 42 U/L (<40); AST/SGOT 24 U/L (<40); Albumin 3.4 gm/dL (3.2-5.2); Albumin/Globulin Ratio 1.3 (1.0-2.3); Alkaline Phosphatase 85 U/L (39-117); Bilirubin,Direct < 0.2 mg/dL (0-0.3); Bilirubin,Total 0.4 mg/dL (0.1-1.0); Blood Urea Nitrogen 20 mg/dL (6-20); Calcium 8.5 mg/dL (8.6-10.4); Carbon Dioxide 31 mmol/L (22-30); Chloride 102 mmol/L (96-108); Globulin 2.6 gm/dL (2.2-3.7); Glomerular Filtration Rate 103; Glucose 112 mg/dL (70-105); Lactate Dehydrogenase 199 U/L (135-225); Phosphorous 3.9 mg/dL (2.5-4.5); Triglycerides 96 mg/dL (<150); Uric Acid 3.9 mg/dL (2.5-8.0)
[2022-08-09] MEDS: BUDESONIDE 0.5 MG/2 ML AMPUL.NEB NEB SCH ×2 (07:21→19:30)
[2022-08-09] MEDS: OMEPRAZOLE 20 MG CAPSULE PO SCH (08:08)
[2022-08-09] MEDS: INSULIN LISPRO 1 UNIT/0.01 ML UNIT SQ SCH ×4 (08:08→22:09)
[2022-08-09] MEDS: DOCUSATE SODIUM 100 MG CAPSULE PO SCH ×2 (08:49→22:08)
[2022-08-09] MEDS: CETIRIZINE 10 MG TABLET PO SCH (08:54)
[2022-08-09] MEDS: LORazepam 0.5 MG TABLET PO PRN ×2 (08:54→22:11)
[2022-08-09] MEDS: ENOXAPARIN 30 MG/0.3 ML SYRINGE SQ SCH (08:54)
[2022-08-09] MEDS: DILTIAZEM 30 MG TABLET PO SCH ×3 (08:54→22:01)
[2022-08-09] MEDS: Umeclidinium-Vilanterol [Anoro Ellipta] 62.5-25 mcg Inhaler INH SCH (08:55)
[2022-08-09] MEDS: FLUTICASONE PROPIONATE SPRAY.NAS NS SCH (08:55)
[2022-08-09] MEDS: LORazepam 2 MG/ML VIAL IV PRN (14:00)
[2022-08-09] MEDS: ACETAMINOPHEN 325 MG TABLET PO PRN (15:52)
[2022-08-09] MEDS: HYDROcodone/APAP 5/325MG TABLET PO PRN ×2 (17:47→22:10)
[2022-08-10] MEDS: LEVALBUTEROL 0.63 MG/3 ML AMPUL.NEB NEB SCH ×4 (00:49→19:22)
[2022-08-10] MEDS: IPRATROPIUM 2.5 ML AMPUL.NEB NEB SCH ×4 (00:50→19:23)
[2022-08-10] MEDS: LORazepam 2 MG/ML VIAL IV PRN (03:03)
[2022-08-10] MEDS: 0.9 % SODIUM CHLORIDE 10 ML SYRINGE IV SCH ×3 (05:35→21:27)
[2022-08-10] MEDS: methylPREDNISolone SOD SUCC 40 MG/ML VIAL IV SCH ×3 (06:10→21:25)
[2022-08-10 06:52] LABS: ALT/SGPT 37 U/L (<40); AST/SGOT 18 U/L (<40); Albumin 3.2 gm/dL (3.2-5.2); Albumin/Globulin Ratio 1.3 (1.0-2.3); Alkaline Phosphatase 81 U/L (39-117); Bilirubin,Direct < 0.2 mg/dL (0-0.3); Bilirubin,Total 0.3 mg/dL (0.1-1.0); Blood Urea Nitrogen 20 mg/dL (6-20); Calcium 8.5 mg/dL (8.6-10.4); Carbon Dioxide 33 mmol/L (22-30); Chloride 101 mmol/L (96-108); Globulin 2.4 gm/dL (2.2-3.7); Glomerular Filtration Rate 103; Glucose 103 mg/dL (70-105); Lactate Dehydrogenase 202 U/L (135-225); Phosphorous 3.5 mg/dL (2.5-4.5); Triglycerides 116 mg/dL (<150); Uric Acid 3.1 mg/dL (2.5-8.0)
[2022-08-10] MEDS: BUDESONIDE 0.5 MG/2 ML AMPUL.NEB NEB SCH ×2 (07:15→19:23)
[2022-08-10] MEDS: OMEPRAZOLE 20 MG CAPSULE PO SCH (07:30)
[2022-08-10] MEDS: INSULIN LISPRO 1 UNIT/0.01 ML UNIT SQ SCH ×4 (08:33→21:26)
[2022-08-10] MEDS: DILTIAZEM 30 MG TABLET PO SCH ×3 (09:00→21:26)
[2022-08-10] MEDS: ENOXAPARIN 30 MG/0.3 ML SYRINGE SQ SCH (09:02)
[2022-08-10] MEDS: Umeclidinium-Vilanterol [Anoro Ellipta] 62.5-25 mcg Inhaler INH SCH (09:02)
[2022-08-10] MEDS: FLUTICASONE PROPIONATE SPRAY.NAS NS SCH (09:02)
[2022-08-10] MEDS: morphine 2 MG/ML VIAL IV PRN ×3 (09:10→21:55)
[2022-08-10] MEDS: CETIRIZINE 10 MG TABLET PO SCH (09:10)
[2022-08-10] MEDS: DOCUSATE SODIUM 100 MG CAPSULE PO SCH ×2 (09:33→21:26)
--- NOTE | 2022-08-10 09:54 | XRay Report ---
INDICATION: Hypoxia follow up exam. TECHNIQUE: AP portable semiupright chest x-ray COMPARISON: Previous chest CT scan dated 08/06/2022. Previous chest x-rays dated 08/06/2022, 07/24/2022 FINDINGS: Lungs:Severe pulmonary fibrosis. There may be mildly increased parenchymal density and superimposed edema or infection are possible. Clinical correlation and continued follow-up recommended. Heart, vascular:No significant cardiomegaly. Pulmonary vascularity is normal. No pulmonary edema or pulmonary congestion Mediastinum, emily:No mediastinal widening. No hilar mass Pleura:No pleural fluid. No pleural-based mass or calcification Skeletal:Negative. IMPRESSION: 1. Severe pulmonary fibrosis 2. Possible slight interval increase infiltrates. This is not definite Interpreted and Authenticated by: Pardeep White 08/10/22
--- NOTE | 2022-08-10 11:33 | Internal Med Progress Note ---
SUBJECTIVE Subjective Patient information: Note initiated : 08/10/22 at 11:30 am Service Date, if different from initiated Date: [] Patient: Ned Fortune a 57 y/o M admitted on 08/06/22 for Shortness of breath. Chief Complaint: [] Interval history: History of present illness: Mr. Fortune is a 57 year old M Presents back to the ED for increased shortness of breath. 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 He has been admitted multiple times since April. He is also had multiple ED visits. He is on 10 L or more with several concentrators of oxygen at home. He is hoping to just make it to his daughters wedding in September. They have had the discussion of moving up the wedding date but it does not seem feasible per family and they say "it is what it is", knowing he will be at the wedding "one way or the other". Patient states for the past couple days he just had increasing oxygen need up to 20 L with all other concentrators. His cough is similar to what its been But his shortness of breath is noticeably worse. Vital signs in the ED showed sinus tachycardia which is common for him. He was tachypneic he was initially started on a nonrebreather but then was placed on vapotherm. In the ED Patient was given Solu-Medrol and breathing treatments. chronci leukocytosis. CTA chest showing severe pulmonary fibrosis unchanged. No PE. No edema noted Patient found to have leukocytosis of 19,000 which is chronic for him. We will check manual differential. 08/07 Ned feels like he is breathing a little better than yesterday. Less short of breath but desats quickly and easily and does take a while to bring it back. He does have typical cough. Tachycardic and tachypneic. Sounds like he had a discussion with [facility] and is likely that he will consider hospice upon discharge. 08/08 No acute events overnight. Patient feeling all right. Slowly and gradually weaning down his oxygen requirements. Has cough and shortness of breath but stable. 08/09 Continues on Vapotherm with a FiO2 of 70%, 50 L/min flow rate. Discussed guarded prognosis and uncertain trajectory of his acute on chronic illness. Patient is considering hospice however wants to continue current cares in hopes that he will improve enough to discharge home. Continues on Solu-Medrol IV. 08/10 Patient continues to Vapotherm with high oxygen requirements, no significant improvement since yesterday. Added morphine IV as needed for dyspnea. Continue oxygen supplementation with Vapotherm and monitor for improvement in r espiratory status. Guarded prognosis. Physical exam Head: Atraumatic, normal inspection. Eyes: normal appearance, no scleral icterus. Neck: full ROM Respiratory: Requiring Vapotherm, rapid desaturation with minimal activity Cardiovascular: Tachycardia, S1, S2. GI/Abdominal: soft, nontender, no guarding. Extremities: full range of motion, nontender. Neurological: CN II-XII intact, intact motor, intact sensation. Psychiatric: normal mood. Skin: warm, normal color Constitutional Vitals: Vital Signs Temp Pulse Resp BP Pulse Ox O2 Del Method O2 Flow Rate 97.6 F 95 H 30 H 110/83 97 Heated High Flow Nasal Cannula 50 08/10/22 07:46 08/10/22 08:01 08/10/22 08:01 08/10/22 08:01 08/10/22 08:01 08/10/22 08:01 08/10/22 08:01 Period Temp Pulse Resp BP Sys/Ashraf Pulse Ox O2 Del Method O2 Flow Rate Last 24 Hr 97.6 F-98.6 F 94-133 13-41 103-129/80-98 83-100 Heated High Flow Nasal Ca-Heated High Flow Nasal Ca 50-50 Intake and Output 08/09/22 08/10/22 08/10/22 19:59 03:59 11:59 Intake Total 1140 Output Total 600 200 Balance 540 -200 Weight 46.176 kg Intake & Output: Intake & Output 08/09/22 08/10/22 08/10/22 19:59 03:59 11:59 Intake Total 1140 Output Total 600 200 Balance 540 -200 Weight 46.176 kg Intake: Oral 1140 Output: Void Amount 600 200 Other: Meal Dinner Percent of Meal Consumed 100% Feeding Ability Independent Urine Appearance Clear Clear Urine Color Yellow Yellow Urine Odor Normal OBJ DATA Labs 08/06/22 12:33 08/10/22 05:26 Labs: Abnormal Lab Results 08/10/22 08/09/22 08/08/22 05:26 05:28 05:22 Carbon Dioxide 33 H 31 H Anion Gap 6.0 L 6.0 L BUN 26 H Glucose 112 H 117 H Calcium 8.5 L 8.5 L ALT 42 H 44 H Total Protein 5.6 L Meds: Medications Acetaminophen (Acetaminophen 325 Mg Tablet) 650 mg PO Q6HP PRN PRN Reason: fever > 101 Last Admin: 08/09/22 15:52 Dose: 650 mg Hydrocodone Bitart/Acetaminophen (Hydrocodone/Apap 5/325mg Tablet) 1 tab PO Q4HP PRN PRN Reason: PAIN LEVEL 3-6 Last Admin: 08/09/22 22:10 Dose: 1 tab Budesonide (Budesonide 0.5 Mg/2 Ml Ampul.Neb) 0.5 mg NEB Q12 [facility] Last Admin: 08/10/22 07:15 Dose: 0.5 mg Cetirizine HCl (Cetirizine 10 Mg Tablet) 10 mg PO DAILY [facility] Last Admin: 08/10/22 09:10 Dose: 10 mg Dextrose (Dextrose 50% 50 Ml Vial) 0 ml IV UD PRN PRN Reason: Per Sliding Scale Diagnostic Test (Pha) (Accu-Chek 1 Each Strip) 1 each FS ACHS [facility] Last Admin: 08/10/22 08:33 Dose: 1 each Diltiazem HCl (Diltiazem 30 Mg Tablet) 30 mg PO TID [facility] Last Admin: 08/10/22 09:00 Dose: 30 mg Diphenhydramine HCl (Diphenhydramine 25 Mg Capsule) 0 mg PO BIDP PRN PRN Reason: Allergic Symptoms Docusate Sodium (Docusate Sodium 100 Mg Capsule) 100 mg PO BID [facility] Last Admin: 08/10/22 09:33 Dose: Not Given Enoxaparin Sodium (Enoxaparin 30 Mg/0.3 Ml Syringe) 30 mg SQ DAILY [facility] Last Admin: 08/10/22 09:02 Dose: 30 mg Fluticasone Propionate (Fluticasone Propionate [place].Lisbeth) 2 spray NS QDAY [facility] Last Admin: 08/10/22 09:02 Dose: 2 spray Glucose (Dextrose 31 Gm Oral.Susp) 15 gm PO PRN PRN PRN Reason: Hypoglycemia Potassium Chloride 40 meq/ (Dextrose) 520 mls @ 130 mls/hr IV UD PRN PRN Reason: Potassium Level < 3 Magnesium Sulfate (Magnesium Sulfate) 2 gm in 50 mls @ 25 mls/hr IV UD PRN PRN Reason: Magnesium Level </= 1.6 Insulin Human Lispro (Insulin Lispro 1 Unit/0.01 Ml Unit) 0 unit SQ ACHS [facility]; Protocol Last Admin: 08/10/22 08:33 Dose: Not Given Ipratropium [place] (Ipratropium 2.5 Ml Ampul.Neb) 2.5 ml NEB Q6HRT [facility] Last Admin: 08/10/22 07:15 Dose: 2.5 ml Levalbuterol HCl (Levalbuterol 0.63 Mg/3 Ml Ampul.Neb) 1.25 mg NEB Q6HRT [facility] Last Admin: 08/10/22 07:16 Dose: 1.25 mg Lorazepam (Lorazepam 2 Mg/Ml Vial) 0.5 mg IV Q6HP PRN PRN Reason: ANXIETY/SEDATION Last Admin: 08/10/22 03:03 Dose: 0.5 mg Lorazepam (Lorazepam 0.5 Mg Tablet) 0 mg PO TIDP PRN PRN Reason: anxiety Last Admin: 08/09/22 22:11 Dose: 0.5 mg Methylprednisolone Sodium Succinate (Methylprednisolone Sod Succ 40 Mg/Ml Vial) 40 mg IV Q8 [facility] Last Admin: 08/10/22 06:10 Dose: 40 mg Metoprolol Tartrate (Metoprolol Tartrate 5 Mg/5 Ml Vial) 5 mg IV Q2HP PRN PRN Reason: Tachyarrhythmias HR>110 Last Admin: 08/07/22 13:13 Dose: 5 mg Morphine Sulfate (Morphine 2 Mg/Ml Vial) 2 mg IV Q2HP PRN; Protocol PRN Reason: Anxiety and dyspnea Last Admin: 08/10/22 09:10 Dose: 2 mg Omeprazole (Omeprazole 20 Mg Capsule) 40 mg PO ACB [facility] Last Admin: 08/10/22 07:30 Dose: 40 mg Ondansetron HCl (Ondansetron 4 Mg/2 Ml Vial) 4 mg IV Q4HP PRN PRN Reason: Nausea And Vomiting Umeclidinium- Vilanterol [Anoro Ellipta] 62.5-25 Mcg Inhaler 1 dose INH DAILY [facility] Last Admin: 08/10/22 09:02 Dose: 1 dose Polyethylene Glycol (Polyethylene Glycol 3350 17 Gm Packet) 17 gm PO DAILYP PRN PRN Reason: Constipation Potassium Chloride (Potassium Chloride 20 Meq Tablet) 40 meq PO UD PRN PRN Reason: Potassium Level of 3-3.5 Potassium Chloride (Potassium Chloride 20 Meq Tablet) 40 meq PO UD PRN PRN Reason: Potassium Level < 3 Senna (Sennosides 1 Tablet) 2 tab PO DAILYP PRN PRN Reason: Constipation Last Admin: 08/06/22 20:35 Dose: 2 tab Sodium Chloride (0.9 % Sodium Chloride 10 Ml Syringe) 10 ml IV Q8 [facility] Last Admin: 08/10/22 05:35 Dose: 10 ml Sodium Chloride (Sodium Chloride Nasal 1 [place] Bottle) 2 spray LISBETH Q4HP PRN PRN Reason: Congestion A/P Narrative A/P Narrative: Assessment: #Acute on chronic hypoxic respiratory failure: 2/2 end-stage pulmonary fibrosis #End-stage Pulmonary fibrosis exacerbation (at least 10L O2@home): #COPD / Bronchiectasis : #Chronic leukocytosis: #Sinus Tachycardia, chronic: #GERD / Rico's esophagus: #h/o colon cancer #Malnourishment: #Anemia, chronic: #Anxiety: prn ativan #Guarded prognosis given severe pulmonary fibrosis and multiple hospitalizations Plan: -Solumedrol 40 mg IV every 8 hours. -Oxygen supplementation wean as able, -Scheduled xopenex/ipratropium and prn nebs, add budesonide nebs -chest imaging if worsens -PO diltiazem last admit after episode of afib rvr, cont and prn IV lopressor -monitor/trend electrolyte abnormalities -prn Ativan -dietary consult -PT and OT -DVT prophylaxis: Lovenox -Code status: DNR/DNI Time Spent With Patient Time: Total time spent is greater than 50% in coordination of care (as documented) at patient's floor/unit and/or counseling patient: QUALITY Stroke Symptom Onset Unknown: No VTE Deep Vein Thrombosis/Pulmonary Embolism Present on Admission: No
[2022-08-10] MEDS ORDERED: LIDOCAINE VISCOUS 2% 15 ML UNIT DOSE CUP PO PRN (21:18)
[2022-08-10] MEDS: LORazepam 0.5 MG TABLET PO PRN (21:56)
[2022-08-11] MEDS: LEVALBUTEROL 0.63 MG/3 ML AMPUL.NEB NEB SCH ×4 (01:13→19:47)
[2022-08-11] MEDS: IPRATROPIUM 2.5 ML AMPUL.NEB NEB SCH ×4 (01:14→19:47)
[2022-08-11] MEDS: methylPREDNISolone SOD SUCC 40 MG/ML VIAL IV SCH ×3 (05:25→21:43)
[2022-08-11] MEDS: 0.9 % SODIUM CHLORIDE 10 ML SYRINGE IV SCH ×3 (05:25→21:43)
[2022-08-11 06:31] LABS: ALT/SGPT 41 U/L (<40); AST/SGOT 19 U/L (<40); Albumin 3.3 gm/dL (3.2-5.2); Albumin/Globulin Ratio 1.3 (1.0-2.3); Alkaline Phosphatase 88 U/L (39-117); Bilirubin,Direct < 0.2 mg/dL (0-0.3); Bilirubin,Total 0.2 mg/dL (0.1-1.0); Blood Urea Nitrogen 17 mg/dL (6-20); Calcium 8.4 mg/dL (8.6-10.4); Carbon Dioxide 33 mmol/L (22-30); Chloride 97 mmol/L (96-108); Globulin 2.5 gm/dL (2.2-3.7); Glomerular Filtration Rate 103; Glucose 108 mg/dL (70-105); Lactate Dehydrogenase 240 U/L (135-225); Phosphorous 2.6 mg/dL (2.5-4.5); Triglycerides 110 mg/dL (<150); Uric Acid 3.1 mg/dL (2.5-8.0)
[2022-08-11] MEDS: morphine 2 MG/ML VIAL IV PRN ×8 (06:59→23:16)
[2022-08-11] MEDS: OMEPRAZOLE 20 MG CAPSULE PO SCH (06:59)
[2022-08-11] MEDS: BUDESONIDE 0.5 MG/2 ML AMPUL.NEB NEB SCH ×2 (08:00→19:47)
[2022-08-11] MEDS: INSULIN LISPRO 1 UNIT/0.01 ML UNIT SQ SCH ×4 (08:29→21:00)
--- NOTE | 2022-08-11 08:33 | Internal Med Progress Note ---
SUBJECTIVE Subjective Patient information: Note initiated : 08/11/22 at 8:30 am Service Date, if different from initiated Date: [] Patient: Ned Fortune a 57 y/o M admitted on 08/06/22 for Shortness of breath. Chief Complaint: [] Interval history: History of present illness: Mr. Fortune is a 57 year old M Presents back to the ED for increased shortness of breath. 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 He has been admitted multiple times since April. He is also had multiple ED visits. He is on 10 L or more with several concentrators of oxygen at home. He is hoping to just make it to his daughters wedding in September. They have had the discussion of moving up the wedding date but it does not seem feasible per family and they say "it is what it is", knowing he will be at the wedding "one way or the other". Patient states for the past couple days he just had increasing oxygen need up to 20 L with all other concentrators. His cough is similar to what its been But his shortness of breath is noticeably worse. Vital signs in the ED showed sinus tachycardia which is common for him. He was tachypneic he was initially started on a nonrebreather but then was placed on vapotherm. In the ED Patient was given Solu-Medrol and breathing treatments. chronci leukocytosis. CTA chest showing severe pulmonary fibrosis unchanged. No PE. No edema noted Patient found to have leukocytosis of 19,000 which is chronic for him. We will check manual differential. 08/07 Ned feels like he is breathing a little better than yesterday. Less short of breath but desats quickly and easily and does take a while to bring it back. He does have typical cough. Tachycardic and tachypneic. Sounds like he had a discussion with [facility] and is likely that he will consider hospice upon discharge. 08/08 No acute events overnight. Patient feeling all right. Slowly and gradually weaning down his oxygen requirements. Has cough and shortness of breath but stable. 08/09 Continues on Vapotherm with a FiO2 of 70%, 50 L/min flow rate. Discussed guarded prognosis and uncertain trajectory of his acute on chronic illness. Patient is considering hospice however wants to continue current cares in hopes that he will improve enough to discharge home. Continues on Solu-Medrol IV. 08/10 Patient continues to Vapotherm with high oxygen requirements, no significant improvement since yesterday. Chest x-ray shows a possible increase in infiltrates. Added morphine IV as needed for dyspnea. Continue oxygen supplementation with Vapotherm and monitor for improvement in respiratory status. Guarded prognosis. 08/11 Oxygen supplementation modestly improved today. The patient feels like morphine is more effective for him than Ativan for dyspnea. Goals of care discussed this morning, the patient said he was open to hospice at home. He says his will come to the hospital this afternoon and we plan to discuss goals of care further at that time. Physical exam Head: Atraumatic, normal inspection. Eyes: normal appearance, no scleral icterus. Neck: full ROM Respiratory: Requiring Vapotherm, tachypnea. Cardiovascular: Regular heart rate, S1, S2. GI/Abdominal: soft, nontender, no guarding. Extremities: full range of motion, nontender. Neurological: CN II-XII intact, intact motor, intact sensation. Psychiatric: normal mood. Skin: warm, normal color Constitutional Vitals: Vital Signs Temp Pulse Resp BP Pulse Ox O2 Del Method O2 Flow Rate 98.3 F 88 21 116/91 94 Heated High Flow Nasal Cannula 40 08/11/22 00:01 08/11/22 08:17 08/11/22 08:17 08/11/22 04:00 08/11/22 08:17 08/11/22 08:17 08/11/22 08:17 Period Temp Pulse Resp BP Sys/Ashraf Pulse Ox O2 Del Method O2 Flow Rate Last 24 Hr 98.3 F-98.3 F 46-111 18-40 112-136/79-107 90-100 Heated High Flow Nasal Ca-Heated High Flow Nasal Ca 40-55 Intake and Output 08/10/22 08/11/22 08/11/22 19:59 03:59 11:59 Intake Total 240 300 100 Output Total 470 250 300 Balance -230 50 -200 Weight 45.813 kg Intake & Output: Intake & Output 08/10/22 08/11/22 08/11/22 19:59 03:59 11:59 Intake Total 240 300 100 Output Total 470 250 300 Balance -230 50 -200 Weight 45.813 kg Intake: Oral 240 300 100 Output: Void Amount 470 250 300 Other: Meal Lunch Dinner Percent of Meal Consumed 100% 100% Urine Appearance Clear Clear Clear Urine Color Yellow Yellow Dark Yellow Urine Odor Normal Normal # Bowel Movements 0 OBJ DATA Labs 08/06/22 12:33 08/11/22 05:05 Labs: Abnormal Lab Results 08/11/22 08/10/22 08/09/22 05:05 05:26 05:28 Carbon Dioxide 33 H 33 H 31 H Anion Gap 6.0 L 6.0 L 6.0 L Glucose 108 H 112 H Calcium 8.4 L 8.5 L 8.5 L ALT 41 H 42 H Lactate Dehydrogenase 240 H Total Protein 5.8 L 5.6 L Meds: Medications Acetaminophen (Acetaminophen 325 Mg Tablet) 650 mg PO Q6HP PRN PRN Reason: fever > 101 Last Admin: 08/09/22 15:52 Dose: 650 mg Hydrocodone Bitart/Acetaminophen (Hydrocodone/Apap 5/325mg Tablet) 1 tab PO Q4HP PRN PRN Reason: PAIN LEVEL 3-6 Last Admin: 08/09/22 22:10 Dose: 1 tab Budesonide (Budesonide 0.5 Mg/2 Ml Ampul.Neb) 0.5 mg NEB Q12 [facility] Last Admin: 08/11/22 08:00 Dose: 0.5 mg Cetirizine HCl (Cetirizine 10 Mg Tablet) 10 mg PO DAILY [facility] Last Admin: 08/10/22 09:10 Dose: 10 mg Dextrose (Dextrose 50% 50 Ml Vial) 0 ml IV UD PRN PRN Reason: Per Sliding Scale Diagnostic Test (Pha) (Accu-Chek 1 Each Strip) 1 each FS ACHS [facility] Last Admin: 08/11/22 08:29 Dose: 1 each Diltiazem HCl (Diltiazem 30 Mg Tablet) 30 mg PO TID [facility] Last Admin: 08/10/22 21:26 Dose: 30 mg Diphenhydramine HCl (Diphenhydramine 25 Mg Capsule) 0 mg PO BIDP PRN PRN Reason: Allergic Symptoms Docusate Sodium (Docusate Sodium 100 Mg Capsule) 100 mg PO BID [facility] Last Admin: 08/10/22 21:26 Dose: Not Given Enoxaparin Sodium (Enoxaparin 30 Mg/0.3 Ml Syringe) 30 mg SQ DAILY [facility] Last Admin: 08/10/22 09:02 Dose: 30 mg Fluticasone Propionate (Fluticasone Propionate [place].Lisbeth) 2 spray NS QDAY [facility] Last Admin: 08/10/22 09:02 Dose: 2 spray Glucose (Dextrose 31 Gm Oral.Susp) 15 gm PO PRN PRN PRN Reason: Hypoglycemia Potassium Chloride 40 meq/ (Dextrose) 520 mls @ 130 mls/hr IV UD PRN PRN Reason: Potassium Level < 3 Magnesium Sulfate (Magnesium Sulfate) 2 gm in 50 mls @ 25 mls/hr IV UD PRN PRN Reason: Magnesium Level </= 1.6 Insulin Human Lispro (Insulin Lispro 1 Unit/0.01 Ml Unit) 0 unit SQ [facility]; Protocol Last Admin: 08/11/22 08:29 Dose: Not Given Ipratropium [place] (Ipratropium 2.5 Ml Ampul.Neb) 2.5 ml NEB Q6HRT [facility] Last Admin: 08/11/22 08:00 Dose: 2.5 ml Levalbuterol HCl (Levalbuterol 0.63 Mg/3 Ml Ampul.Neb) 1.25 mg NEB Q6HRT [facility] Last Admin: 08/11/22 08:00 Dose: 1.25 mg Lidocaine HCl (Lidocaine Viscous 2% 15 Ml Unit Dose Cup) 15 ml PO Q4HP PRN PRN Reason: Sore Throat Last Admin: 08/10/22 22:48 Dose: 15 ml Lorazepam (Lorazepam 0.5 Mg Tablet) 0 mg PO TIDP PRN PRN Reason: anxiety Last Admin: 08/10/22 21:56 Dose: 0.5 mg Methylprednisolone Sodium Succinate (Methylprednisolone Sod Succ 40 Mg/Ml Vial) 40 mg IV Q8 [facility] Last Admin: 08/11/22 05:25 Dose: 40 mg Metoprolol Tartrate (Metoprolol Tartrate 5 Mg/5 Ml Vial) 5 mg IV Q2HP PRN PRN Reason: Tachyarrhythmias HR>110 Last Admin: 08/07/22 13:13 Dose: 5 mg Omeprazole (Omeprazole 20 Mg Capsule) 40 mg PO ACB [facility] Last Admin: 08/11/22 06:59 Dose: 40 mg Ondansetron HCl (Ondansetron 4 Mg/2 Ml Vial) 4 mg IV Q4HP PRN PRN Reason: Nausea And Vomiting Umeclidinium- Vilanterol [Anoro Ellipta] 62.5-25 Mcg Inhaler 1 dose INH DAILY [facility] Last Admin: 08/10/22 09:02 Dose: 1 dose Polyethylene Glycol (Polyethylene Glycol 3350 17 Gm Packet) 17 gm PO DAILYP PRN PRN Reason: Constipation Potassium Chloride (Potassium Chloride 20 Meq Tablet) 40 meq PO UD PRN PRN Reason: Potassium Level of 3-3.5 Potassium Chloride (Potassium Chloride 20 Meq Tablet) 40 meq PO UD PRN PRN Reason: Potassium Level < 3 Senna (Sennosides 1 Tablet) 2 tab PO DAILYP PRN PRN Reason: Constipation Last Admin: 08/06/22 20:35 Dose: 2 tab Sodium Chloride (0.9 % Sodium Chloride 10 Ml Syringe) 10 ml IV Q8 [facility] Last Admin: 08/11/22 05:25 Dose: 10 ml Sodium Chloride (Sodium Chloride Nasal 1 [place]) 2 spray LISBETH Q4HP PRN PRN Reason: Congestion A/P Narrative A/P Narrative: Assessment: #Acute on chronic hypoxic respiratory failure: 2/2 end-stage pulmonary fibrosis #End-stage Pulmonary fibrosis exacerbation (at least 10L O2@home): #COPD / Bronchiectasis : #Chronic leukocytosis: #Sinus Tachycardia, chronic: #GERD / Rico's esophagus: #h/o colon cancer #Malnourishment: #Anemia, chronic: #Anxiety: prn ativan #Guarded prognosis given severe pulmonary fibrosis and multiple hospitalizations Plan: -Solumedrol 40 mg IV every 8 hours. -Oxygen supplementation wean as able, -Scheduled xopenex/ipratropium and prn nebs, add budesonide nebs -PO diltiazem last admit after episode of afib rvr, cont and prn IV lopressor -monitor/trend electrolyte abnormalities -prn morphine IV for dyspnea -dietary consult -PT and OT -DVT prophylaxis: Lovenox -Code status: DNR/DNI Time Spent With Patient Time: Total time spent is greater than 50% in coordination of care (as documented) at patient's floor/unit and/or counseling patient: QUALITY Stroke Symptom Onset Unknown: No VTE Deep Vein Thrombosis/Pulmonary Embolism Present on Admission: No
[2022-08-11] MEDS: Umeclidinium-Vilanterol [Anoro Ellipta] 62.5-25 mcg Inhaler INH SCH (09:10)
[2022-08-11] MEDS: FLUTICASONE PROPIONATE SPRAY.NAS NS SCH (09:10)
[2022-08-11] MEDS: DILTIAZEM 30 MG TABLET PO SCH ×4 (09:10→21:42)
[2022-08-11] MEDS: ENOXAPARIN 30 MG/0.3 ML SYRINGE SQ SCH (09:11)
[2022-08-11] MEDS: BENZOCAINE/MENTHOL 1 LOZENGE PO PRN ×4 (09:13→17:28)
[2022-08-11] MEDS: LORazepam 0.5 MG TABLET PO PRN ×2 (09:19→21:43)
[2022-08-11] MEDS: DOCUSATE SODIUM 100 MG CAPSULE PO SCH ×2 (10:11→21:11)
[2022-08-11] MEDS: CETIRIZINE 10 MG TABLET PO SCH (10:21)
[2022-08-11] MEDS: HYDROcodone/APAP 5/325MG TABLET PO PRN (21:42)
[2022-08-12] MEDS: IPRATROPIUM 2.5 ML AMPUL.NEB NEB SCH ×4 (00:55→19:32)
[2022-08-12] MEDS: LEVALBUTEROL 0.63 MG/3 ML AMPUL.NEB NEB SCH ×2 (00:55→08:03)
[2022-08-12] MEDS: 0.9 % SODIUM CHLORIDE 10 ML SYRINGE IV SCH ×3 (05:45→21:50)
[2022-08-12] MEDS: methylPREDNISolone SOD SUCC 40 MG/ML VIAL IV SCH ×3 (05:45→21:50)
[2022-08-12] MEDS: OMEPRAZOLE 20 MG CAPSULE PO SCH (07:41)
[2022-08-12] MEDS: INSULIN LISPRO 1 UNIT/0.01 ML UNIT SQ SCH ×4 (07:52→20:31)
[2022-08-12] MEDS: BUDESONIDE 0.5 MG/2 ML AMPUL.NEB NEB SCH ×2 (08:03→19:32)
[2022-08-12] MEDS: Umeclidinium-Vilanterol [Anoro Ellipta] 62.5-25 mcg Inhaler INH SCH (08:31)
[2022-08-12] MEDS: ENOXAPARIN 30 MG/0.3 ML SYRINGE SQ SCH (08:31)
[2022-08-12] MEDS: DOCUSATE SODIUM 100 MG CAPSULE PO SCH ×2 (08:31→20:31)
[2022-08-12] MEDS: DILTIAZEM 30 MG TABLET PO SCH ×3 (08:31→20:30)
[2022-08-12] MEDS: FLUTICASONE PROPIONATE SPRAY.NAS NS SCH (08:31)
[2022-08-12] MEDS: CETIRIZINE 10 MG TABLET PO SCH (09:05)
[2022-08-12] MEDS: LORazepam 0.5 MG TABLET PO PRN ×4 (10:51→23:24)
[2022-08-12] MEDS: morphine 2 MG/ML VIAL IV PRN ×5 (13:02→23:24)
[2022-08-12] MEDS: LEVALBUTEROL 1.25 MG/3 ML AMPUL.NEB NEB SCH ×2 (13:08→19:32)
--- NOTE | 2022-08-12 14:03 | Internal Med Progress Note ---
SUBJECTIVE Subjective Patient information: Note initiated : 08/12/22 at 2:00 pm Service Date, if different from initiated Date: [] Patient: Ned Fortune a 57 y/o M admitted on 08/06/22 for Shortness of breath. Chief Complaint: [] Interval history: History of present illness: Mr. Fortune is a 57 year old M Presents back to the ED for increased shortness of breath. 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 He has been admitted multiple times since April. He is also had multiple ED visits. He is on 10 L or more with several concentrators of oxygen at home. He is hoping to just make it to his daughters wedding in September. They have had the discussion of moving up the wedding date but it does not seem feasible per family and they say "it is what it is", knowing he will be at the wedding "one way or the other". Patient states for the past couple days he just had increasing oxygen need up to 20 L with all other concentrators. His cough is similar to what its been But his shortness of breath is noticeably worse. Vital signs in the ED showed sinus tachycardia which is common for him. He was tachypneic he was initially started on a nonrebreather but then was placed on vapotherm. In the ED Patient was given Solu-Medrol and breathing treatments. chronci leukocytosis. CTA chest showing severe pulmonary fibrosis unchanged. No PE. No edema noted Patient found to have leukocytosis of 19,000 which is chronic for him. We will check manual differential. 08/07 Ned feels like he is breathing a little better than yesterday. Less short of breath but desats quickly and easily and does take a while to bring it back. He does have typical cough. Tachycardic and tachypneic. Sounds like he had a discussion with [facility] and is likely that he will consider hospice upon discharge. 08/08 No acute events overnight. Patient feeling all right. Slowly and gradually weaning down his oxygen requirements. Has cough and shortness of breath but stable. 08/09 Continues on Vapotherm with a FiO2 of 70%, 50 L/min flow rate. Discussed guarded prognosis and uncertain trajectory of his acute on chronic illness. Patient is considering hospice however wants to continue current cares in hopes that he will improve enough to discharge home. Continues on Solu-Medrol IV. 08/10 Patient continues to Vapotherm with high oxygen requirements, no significant improvement since yesterday. Chest x-ray shows a possible increase in infiltrates. Added morphine IV as needed for dyspnea. Continue oxygen supplementation with Vapotherm and monitor for improvement in respiratory status. Guarded prognosis. 08/11 Oxygen supplementation modestly improved today. The patient feels like morphine is more effective for him than Ativan for dyspnea. Goals of care discussed with the patient and his at bedside today, all available options were discussed in detail including home hospice, comfort cares in the hospital and continuing with aggressive cares. Patient said he would discuss the options further with his . 08/12 Respiratory status unchanged, the patient said he does not have any questions when I saw him this morning. Physical exam Head: Atraumatic, normal inspection. Eyes: normal appearance, no scleral icterus. Neck: full ROM Respiratory: Requiring Vapotherm, tachypnea. Cardiovascular: Regular heart rate, S1, S2. GI/Abdominal: soft, nontender, no guarding. Extremities: full range of motion, nontender. Neurological: CN II-XII intact, intact motor, intact sensation. Psychiatric: normal mood. Skin: warm, normal color Constitutional Vitals: Vital Signs Temp Pulse Resp BP Pulse Ox O2 Del Method O2 Flow Rate 98.3 F 120 H 28 H 117/97 100 Heated High Flow Nasal Cannula 55 08/12/22 12:00 08/12/22 13:08 08/12/22 13:08 08/12/22 12:00 08/12/22 13:08 08/12/22 13:08 08/12/22 13:08 Period Temp Pulse Resp BP Sys/Ashraf Pulse Ox O2 Del Method O2 Flow Rate Last 24 Hr 97.0 F-98.3 F 96-133 10-40 109-133/92-104 83-100 Heated High Flow Nasal Ca-Heated High Flow Nasal Ca 50-55 Intake and Output 08/12/22 08/12/22 08/12/22 03:59 11:59 19:59 Intake Total 50 Output Total 150 Balance -100 Weight 43.137 kg Patient Weight 08/13/22 03:59 Weight 43.137 kg Intake & Output: Intake & Output 08/12/22 08/12/22 08/12/22 03:59 11:59 19:59 Intake Total 50 Output Total 150 Balance -100 Weight 43.137 kg Intake: Oral 50 Output: Void Amount 150 Other: Urine Appearance Clear Urine Color Dark Yellow OBJ DATA Labs 08/06/22 12:33 08/11/22 05:05 Labs: Abnormal Lab Results 08/11/22 08/10/22 05:05 05:26 Carbon Dioxide 33 H 33 H Anion Gap 6.0 L 6.0 L Glucose 108 H Calcium 8.4 L 8.5 L ALT 41 H Lactate Dehydrogenase 240 H Total Protein 5.8 L 5.6 L Meds: Medications Acetaminophen (Acetaminophen 325 Mg Tablet) 650 mg PO Q6HP PRN PRN Reason: fever > 101 Last Admin: 08/09/22 15:52 Dose: 650 mg Hydrocodone Bitart/Acetaminophen (Hydrocodone/Apap 5/325mg Tablet) 1 tab PO Q4HP PRN PRN Reason: PAIN LEVEL 3-6 Last Admin: 08/11/22 21:42 Dose: 1 tab Budesonide (Budesonide 0.5 Mg/2 Ml Ampul.Neb) 0.5 mg NEB Q12 [facility] Last Admin: 08/12/22 08:03 Dose: 0.5 mg Cetirizine HCl (Cetirizine 10 Mg Tablet) 10 mg PO DAILY [facility] Last Admin: 08/12/22 09:05 Dose: 10 mg Dextrose (Dextrose 50% 50 Ml Vial) 0 ml IV UD PRN PRN Reason: Per Sliding Scale Diagnostic Test (Pha) (Accu-Chek 1 Each Strip) 1 each FS ACHS [facility] Last Admin: 08/12/22 10:58 Dose: 1 each Diltiazem HCl (Diltiazem 30 Mg Tablet) 30 mg PO TID [facility] Last Admin: 08/12/22 08:31 Dose: 30 mg Diphenhydramine HCl (Diphenhydramine 25 Mg Capsule) 0 mg PO BIDP PRN PRN Reason: Allergic Symptoms Docusate Sodium (Docusate Sodium 100 Mg Capsule) 100 mg PO BID [facility] Last Admin: 08/12/22 08:31 Dose: Not Given Enoxaparin Sodium (Enoxaparin 30 Mg/0.3 Ml Syringe) 30 mg SQ DAILY [facility] Last Admin: 08/12/22 08:31 Dose: 30 mg Fluticasone Propionate (Fluticasone Propionate [place].Lisbeth) 2 spray NS QDAY [facility] Last Admin: 08/12/22 08:31 Dose: 2 spray Glucose (Dextrose 31 Gm Oral.Susp) 15 gm PO PRN PRN PRN Reason: Hypoglycemia Potassium Chloride 40 meq/ (Dextrose) 520 mls @ 130 mls/hr IV UD PRN PRN Reason: Potassium Level < 3 Magnesium Sulfate (Magnesium Sulfate) 2 gm in 50 mls @ 25 mls/hr IV UD PRN PRN Reason: Magnesium Level </= 1.6 Insulin Human Lispro (Insulin Lispro 1 Unit/0.01 Ml Unit) 0 unit SQ ACHS [facility]; Protocol Last Admin: 08/12/22 10:58 Dose: Not Given Ipratropium [place] (Ipratropium 2.5 Ml Ampul.Neb) 2.5 ml NEB Q6HRT [facility] Last Admin: 08/12/22 13:08 Dose: 2.5 ml Levalbuterol HCl (Levalbuterol 1.25 Mg/3 Ml Ampul.Neb) 1.25 mg NEB Q6HRT [facility] Last Admin: 08/12/22 13:08 Dose: 1.25 mg Lidocaine HCl (Lidocaine Viscous 2% 15 Ml Unit Dose Cup) 15 ml PO Q4HP PRN PRN Reason: Sore Throat Last Admin: 08/10/22 22:48 Dose: 15 ml Lorazepam (Lorazepam 0.5 Mg Tablet) 0 mg PO TIDP PRN PRN Reason: anxiety Last Admin: 08/12/22 10:51 Dose: 0.5 mg Methylprednisolone Sodium Succinate (Methylprednisolone Sod Succ 40 Mg/Ml Vial) 40 mg IV Q8 [facility] Last Admin: 08/12/22 13:02 Dose: 40 mg Metoprolol Tartrate (Metoprolol Tartrate 5 Mg/5 Ml Vial) 5 mg IV Q2HP PRN PRN Reason: Tachyarrhythmias HR>110 Last Admin: 08/07/22 13:13 Dose: 5 mg Morphine Sulfate (Morphine 2 Mg/Ml Vial) 2 mg IV Q1HP PRN; Protocol PRN Reason: Anxiety and dyspnea Last Admin: 08/12/22 13:02 Dose: 2 mg Omeprazole (Omeprazole 20 Mg Capsule) 40 mg PO ACB [facility] Last Admin: 08/12/22 07:41 Dose: 40 mg Ondansetron HCl (Ondansetron 4 Mg/2 Ml Vial) 4 mg IV Q4HP PRN PRN Reason: Nausea And Vomiting Umeclidinium- Vilanterol [Anoro Ellipta] 62.5-25 Mcg Inhaler 1 dose INH DAILY [facility] Last Admin: 08/12/22 08:31 Dose: 1 dose Polyethylene Glycol (Polyethylene Glycol 3350 17 Gm Packet) 17 gm PO DAILYP PRN PRN Reason: Constipation Potassium Chloride (Potassium Chloride 20 Meq Tablet) 40 meq PO UD PRN PRN Reason: Potassium Level of 3-3.5 Potassium Chloride (Potassium Chloride 20 Meq Tablet) 40 meq PO UD PRN PRN Reason: Potassium Level < 3 Senna (Sennosides 1 Tablet) 2 tab PO DAILYP PRN PRN Reason: Constipation Last Admin: 08/06/22 20:35 Dose: 2 tab Sodium Chloride (0.9 % Sodium Chloride 10 Ml Syringe) 10 ml IV Q8 [facility] Last Admin: 08/12/22 13:03 Dose: 10 ml Sodium Chloride (Sodium Chloride Nasal 1 [place] Bottle) 2 spray LISBETH Q4HP PRN PRN Reason: Congestion Throat Lozenges (Benzocaine/Menthol 1 Lozenge) 1 lozenge PO PRN PRN PRN Reason: Sore Throat Last Admin: 08/11/22 17:28 Dose: 1 lozenge A/P Narrative A/P Narrative: Assessment: #Acute on chronic hypoxic respiratory failure: 2/2 end-stage pulmonary fibrosis #End-stage Pulmonary fibrosis exacerbation (at least 10L O2@home): #COPD / Bronchiectasis : #Chronic leukocytosis: #Sinus Tachycardia, chronic: #GERD / Rico's esophagus: #h/o colon cancer #Malnourishment: #Anemia, chronic: #Anxiety: prn ativan #Guarded prognosis given severe pulmonary fibrosis and multiple hospitalizations Plan: -Solumedrol 40 mg IV every 8 hours. -Oxygen supplementation wean as able, -Scheduled xopenex/ipratropium and prn nebs, budesonide nebs -PO diltiazem last admit after episode of afib rvr, cont and prn IV lopressor -monitor/trend electrolyte abnormalities -prn morphine IV for dyspnea -dietary consult -PT and OT -DVT prophylaxis: Lovenox -Code status: DNR/DNI Time Spent With Patient Time: Total time spent is greater than 50% in coordination of care (as documented) at patient's floor/unit and/or counseling patient: QUALITY Stroke Symptom Onset Unknown: No VTE Deep Vein Thrombosis/Pulmonary Embolism Present on Admission: No
[2022-08-13] MEDS: IPRATROPIUM 2.5 ML AMPUL.NEB NEB SCH ×4 (01:09→19:56)
[2022-08-13] MEDS: LEVALBUTEROL 1.25 MG/3 ML AMPUL.NEB NEB SCH ×4 (01:11→19:56)
[2022-08-13] MEDS: methylPREDNISolone SOD SUCC 40 MG/ML VIAL IV SCH ×3 (05:21→21:27)
[2022-08-13] MEDS: 0.9 % SODIUM CHLORIDE 10 ML SYRINGE IV SCH ×3 (05:21→21:28)
[2022-08-13] MEDS: LORazepam 0.5 MG TABLET PO PRN ×2 (07:26→11:30)
[2022-08-13] MEDS: OMEPRAZOLE 20 MG CAPSULE PO SCH (07:26)
[2022-08-13] MEDS: INSULIN LISPRO 1 UNIT/0.01 ML UNIT SQ SCH ×4 (07:31→20:39)
[2022-08-13] MEDS: DILTIAZEM 30 MG TABLET PO SCH ×3 (08:54→20:38)
[2022-08-13] MEDS: FLUTICASONE PROPIONATE SPRAY.NAS NS SCH (08:55)
[2022-08-13] MEDS: DOCUSATE SODIUM 100 MG CAPSULE PO SCH ×2 (08:55→20:32)
[2022-08-13] MEDS: ENOXAPARIN 30 MG/0.3 ML SYRINGE SQ SCH (08:55)
[2022-08-13] MEDS: Umeclidinium-Vilanterol [Anoro Ellipta] 62.5-25 mcg Inhaler INH SCH (08:56)
[2022-08-13] MEDS: CETIRIZINE 10 MG TABLET PO SCH (08:56)
[2022-08-13] MEDS: BUDESONIDE 0.5 MG/2 ML AMPUL.NEB NEB SCH ×2 (09:06→19:56)
--- NOTE | 2022-08-13 10:43 | Internal Med Progress Note ---
SUBJECTIVE Subjective Patient information: Note initiated : 08/13/22 at 10:39 am Service Date, if different from initiated Date: [] Patient: Ned Fortune a 57 y/o M admitted on 08/06/22 for Shortness of breath. Chief Complaint: [] Interval history: History of present illness: Mr. Fortune is a 57 year old M Presents back to the ED for increased shortness of breath. 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 He has been admitted multiple times since April. He is also had multiple ED visits. He is on 10 L or more with several concentrators of oxygen at home. He is hoping to just make it to his daughters wedding in September. They have had the discussion of moving up the wedding date but it does not seem feasible per family and they say "it is what it is", knowing he will be at the wedding "one way or the other". Patient states for the past couple days he just had increasing oxygen need up to 20 L with all other concentrators. His cough is similar to what its been But his shortness of breath is noticeably worse. Vital signs in the ED showed sinus tachycardia which is common for him. He was tachypneic he was initially started on a nonrebreather but then was placed on vapotherm. In the ED Patient was given Solu-Medrol and breathing treatments. chronci leukocytosis. CTA chest showing severe pulmonary fibrosis unchanged. No PE. No edema noted Patient found to have leukocytosis of 19,000 which is chronic for him. We will check manual differential. 08/07 Ned feels like he is breathing a little better than yesterday. Less short of breath but desats quickly and easily and does take a while to bring it back. He does have typical cough. Tachycardic and tachypneic. Sounds like he had a discussion with [facility] and is likely that he will consider hospice upon discharge. 08/08 No acute events overnight. Patient feeling all right. Slowly and gradually weaning down his oxygen requirements. Has cough and shortness of breath but stable. 08/09 Continues on Vapotherm with a FiO2 of 70%, 50 L/min flow rate. Discussed guarded prognosis and uncertain trajectory of his acute on chronic illness. Patient is considering hospice however wants to continue current cares in hopes that he will improve enough to discharge home. Continues on Solu-Medrol IV. 08/10 Patient continues to Vapotherm with high oxygen requirements, no significant improvement since yesterday. Chest x-ray shows a possible increase in infiltrates. Added morphine IV as needed for dyspnea. Continue oxygen suppleme ntation with Vapotherm and monitor for improvement in respiratory status. Guarded prognosis. 08/11 Oxygen supplementation modestly improved today. The patient feels like morphine is more effective for him than Ativan for dyspnea. Goals of care discussed with the patient and his at bedside today, all available options were discussed in detail including home hospice, comfort cares in the hospital and continuing with aggressive cares. Patient said he would discuss the options further with his . 08/12 Respiratory status unchanged, the patient said he does not have any questions when I saw him this morning. 08/13 No improvement in respiratory status. The patient is planning to talk to additional family members later today. The patient did not have any questions when I spoke to him this morning. Physical exam Head: Atraumatic, normal inspection. Eyes: normal appearance, no scleral icterus. Neck: full ROM Respiratory: Requiring Vapotherm, tachypnea. Cardiovascular: Regular heart rate, S1, S2. GI/Abdominal: soft, nontender, no guarding. Extremities: full range of motion, nontender. Neurological: CN II-XII intact, intact motor, intact sensation. Psychiatric: normal mood. Skin: warm, normal color Constitutional Vitals: Vital Signs Temp Pulse Resp BP Pulse Ox O2 Del Method O2 Flow Rate 97.0 F 126 H 31 H 121/96 97 Heated High Flow Nasal Cannula 55 08/13/22 08:01 08/13/22 08:01 08/13/22 08:01 08/13/22 08:01 08/13/22 08:01 08/13/22 08:01 08/13/22 08:01 Period Temp Pulse Resp BP Sys/Ashraf Pulse Ox O2 Del Method O2 Flow Rate Last 24 Hr 97.0 F-98.7 F 84-126 12-31 110-145/87-103 97-100 Heated High Flow Nasal Ca-Heated High Flow Nasal Ca 55-55 Intake and Output 08/12/22 08/13/22 08/13/22 19:59 03:59 11:59 Intake Total 650 200 100 Output Total 550 200 Balance 650 -350 -100 Weight 43.137 kg 47.083 kg Intake & Output: Intake & Output 08/12/22 08/13/22 08/13/22 19:59 03:59 11:59 Intake Total 650 200 100 Output Total 550 200 Balance 650 -350 -100 Weight 43.137 kg 47.083 kg Intake: Oral 650 200 100 Output: Void Amount 550 200 Other: Meal Dinner Percent of Meal Consumed 90% Feeding Ability Independent Urine Appearance Clear Clear Urine Color Yellow Dark Yellow Pale Urine Odor Normal OBJ DATA Labs 08/06/22 12:33 08/11/22 05:05 Labs: Abnormal Lab Results 08/11/22 05:05 Carbon Dioxide 33 H Anion Gap 6.0 L Glucose 108 H Calcium 8.4 L ALT 41 H Lactate Dehydrogenase 240 H Total Protein 5.8 L Meds: Medications Acetaminophen (Acetaminophen 325 Mg Tablet) 650 mg PO Q6HP PRN PRN Reason: fever > 101 Last Admin: 08/09/22 15:52 Dose: 650 mg Hydrocodone Bitart/Acetaminophen (Hydrocodone/Apap 5/325mg Tablet) 1 tab PO Q4HP PRN PRN Reason: PAIN LEVEL 3-6 Last Admin: 08/11/22 21:42 Dose: 1 tab Budesonide (Budesonide 0.5 Mg/2 Ml Ampul.Neb) 0.5 mg NEB Q12 [facility] Last Admin: 08/13/22 09:06 Dose: 0.5 mg Cetirizine HCl (Cetirizine 10 Mg Tablet) 10 mg PO DAILY [facility] Last Admin: 08/13/22 08:56 Dose: 10 mg Dextrose (Dextrose 50% 50 Ml Vial) 0 ml IV UD PRN PRN Reason: Per Sliding Scale Diagnostic Test (Pha) (Accu-Chek 1 Each Strip) 1 each FS ACHS [facility] Last Admin: 08/13/22 07:31 Dose: 1 each Diltiazem HCl (Diltiazem 30 Mg Tablet) 30 mg PO TID [facility] Last Admin: 08/13/22 08:54 Dose: 30 mg Diphenhydramine HCl (Diphenhydramine 25 Mg Capsule) 0 mg PO BIDP PRN PRN Reason: Allergic Symptoms Docusate Sodium (Docusate Sodium 100 Mg Capsule) 100 mg PO BID [facility] Last Admin: 08/13/22 08:55 Dose: Not Given Enoxaparin Sodium (Enoxaparin 30 Mg/0.3 Ml Syringe) 30 mg SQ DAILY [facility] Last Admin: 08/13/22 08:55 Dose: 30 mg Fluticasone Propionate (Fluticasone Propionate [place].[email or web address]) 2 spray NS QDAY [facility] Last Admin: 08/13/22 08:55 Dose: 2 spray Glucose (Dextrose 31 Gm Oral.Susp) 15 gm PO PRN PRN PRN Reason: Hypoglycemia Potassium Chloride 40 meq/ (Dextrose) 520 mls @ 130 mls/hr IV UD PRN PRN Reason: Potassium Level < 3 Magnesium Sulfate (Magnesium Sulfate) 2 gm in 50 mls @ 25 mls/hr IV UD PRN PRN Reason: Magnesium Level </= 1.6 Insulin Human Lispro (Insulin Lispro 1 Unit/0.01 Ml Unit) 0 unit SQ ACHS [facility]; Protocol Last Admin: 08/13/22 07:31 Dose: Not Given Ipratropium [place] (Ipratropium 2.5 Ml Ampul.Neb) 2.5 ml NEB Q6HRT [facility] Last Admin: 08/13/22 07:11 Dose: 2.5 ml Levalbuterol HCl (Levalbuterol 1.25 Mg/3 Ml Ampul.Neb) 1.25 mg NEB Q6HRT [facility] Last Admin: 08/13/22 07:11 Dose: 1.25 mg Lidocaine HCl (Lidocaine Viscous 2% 15 Ml Unit Dose Cup) 15 ml PO Q4HP PRN PRN Reason: Sore Throat Last Admin: 08/10/22 22:48 Dose: 15 ml Lorazepam (Lorazepam 0.5 Mg Tablet) 0 mg PO TIDP PRN PRN Reason: anxiety Last Admin: 08/13/22 07:26 Dose: 0.5 mg Methylprednisolone Sodium Succinate (Methylprednisolone Sod Succ 40 Mg/Ml Vial) 40 mg IV Q8 [facility] Last Admin: 08/13/22 05:21 Dose: 40 mg Metoprolol Tartrate (Metoprolol Tartrate 5 Mg/5 Ml Vial) 5 mg IV Q2HP PRN PRN Reason: Tachyarrhythmias HR>110 Last Admin: 08/07/22 13:13 Dose: 5 mg Morphine Sulfate (Morphine 2 Mg/Ml Vial) 2 mg IV Q1HP PRN; Protocol PRN Reason: Anxiety and dyspnea Last Admin: 08/12/22 23:24 Dose: 2 mg Omeprazole (Omeprazole 20 Mg Capsule) 40 mg PO ACB [facility] Last Admin: 08/13/22 07:26 Dose: 40 mg Ondansetron HCl (Ondansetron 4 Mg/2 Ml Vial) 4 mg IV Q4HP PRN PRN Reason: Nausea And Vomiting Umeclidinium- Vilanterol [Anoro Ellipta] 62.5-25 Mcg Inhaler 1 dose INH DAILY [facility] Last Admin: 08/13/22 08:56 Dose: 1 dose Polyethylene Glycol (Polyethylene Glycol 3350 17 Gm Packet) 17 gm PO DAILYP PRN PRN Reason: Constipation Potassium Chloride (Potassium Chloride 20 Meq Tablet) 40 meq PO UD PRN PRN Reason: Potassium Level of 3-3.5 Potassium Chloride (Potassium Chloride 20 Meq Tablet) 40 meq PO UD PRN PRN Reason: Potassium Level < 3 Senna (Sennosides 1 Tablet) 2 tab PO DAILYP PRN PRN Reason: Constipation Last Admin: 08/06/22 20:35 Dose: 2 tab Sodium Chloride (0.9 % Sodium Chloride 10 Ml Syringe) 10 ml IV Q8 [facility] Last Admin: 08/13/22 05:21 Dose: 10 ml Sodium Chloride (Sodium Chloride Nasal 1 [place] Bottle) 2 spray LISBETH Q4HP PRN PRN Reason: Congestion Throat Lozenges (Benzocaine/Menthol 1 Lozenge) 1 lozenge PO PRN PRN PRN Reason: Sore Throat Last Admin: 08/11/22 17:28 Dose: 1 lozenge A/P Narrative A/P Narrative: Assessment: 57-year-old male with end-stage pulmonary fibrosis admitted for acute on chronic hypoxemic respiratory failure. Work-up was not suggestive of a pulmonary embolism or infectious etiology. The patient is being treated with systemic steroids however ihas not improved and continues to require high level oxygen support with heated and humidified high flow nasal cannula. It is increasing unlikely that the patient will improve to the point that he could discharge to home, even with hospice. #Acute on chronic hypoxic respiratory failure: 2/2 end-stage pulmonary fibrosis #End-stage Pulmonary fibrosis exacerbation (at least 10L O2@home): #COPD / Bronchiectasis : #Chronic leukocytosis: #Sinus Tachycardia, chronic: #GERD / Rico's esophagus: #h/o colon cancer #Malnourishment: #Anemia, chronic: #Anxiety: #Guarded prognosis Plan: -Solumedrol 40 mg IV every 8 hours. -Oxygen supplementation. -Scheduled xopenex/ipratropium and prn nebs, budesonide nebs -PO diltiazem. -monitor/trend electrolyte abnormalities -prn morphine IV for dyspnea -As needed Ativan p.o. for anxiety. -PT and OT -DVT prophylaxis: Lovenox -Code status: DNR/DNI Time Spent With Patient Time: Total time spent is greater than 50% in coordination of care (as documented) at patient's floor/unit and/or counseling patient: QUALITY Stroke Symptom Onset Unknown: No VTE Deep Vein Thrombosis/Pulmonary Embolism Present on Admission: No
[2022-08-13] MEDS: morphine 2 MG/ML VIAL IV PRN ×2 (12:46→18:23)
[2022-08-14] MEDS: LEVALBUTEROL 1.25 MG/3 ML AMPUL.NEB NEB SCH ×4 (00:38→18:58)
[2022-08-14] MEDS: IPRATROPIUM 2.5 ML AMPUL.NEB NEB SCH ×4 (00:38→18:59)
[2022-08-14] MEDS: methylPREDNISolone SOD SUCC 40 MG/ML VIAL IV SCH ×3 (05:25→22:10)
[2022-08-14] MEDS: 0.9 % SODIUM CHLORIDE 10 ML SYRINGE IV SCH ×4 (05:25→22:10)
[2022-08-14] MEDS: OMEPRAZOLE 20 MG CAPSULE PO SCH (07:53)
[2022-08-14] MEDS: INSULIN LISPRO 1 UNIT/0.01 ML UNIT SQ SCH ×2 (07:58→11:46)
[2022-08-14] MEDS: morphine 2 MG/ML VIAL IV PRN ×4 (08:00→21:40)
[2022-08-14] MEDS: BUDESONIDE 0.5 MG/2 ML AMPUL.NEB NEB SCH ×2 (08:54→18:58)
--- NOTE | 2022-08-14 09:07 | Internal Med Progress Note ---
SUBJECTIVE Subjective Patient information: Note initiated : 08/14/22 at 9:03 am Service Date, if different from initiated Date: [] Patient: Ned Fortune a 57 y/o M admitted on 08/06/22 for Shortness of breath. Chief Complaint: [] Interval history: History of present illness: Mr. Fortune is a 57 year old M Presents back to the ED for increased shortness of breath. 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 He has been admitted multiple times since April. He is also had multiple ED visits. He is on 10 L or more with several concentrators of oxygen at home. He is hoping to just make it to his daughters wedding in September. They have had the discussion of moving up the wedding date but it does not seem feasible per family and they say "it is what it is", knowing he will be at the wedding "one way or the other". Patient states for the past couple days he just had increasing oxygen need up to 20 L with all other concentrators. His cough is similar to what its been But his shortness of breath is noticeably worse. Vital signs in the ED showed sinus tachycardia which is common for him. He was tachypneic he was initially started on a nonrebreather but then was placed on vapotherm. In the ED Patient was given Solu-Medrol and breathing treatments. chronci leukocytosis. CTA chest showing severe pulmonary fibrosis unchanged. No PE. No edema noted Patient found to have leukocytosis of 19,000 which is chronic for him. We will check manual differential. 08/07 Ned feels like he is breathing a little better than yesterday. Less short of breath but desats quickly and easily and does take a while to bring it back. He does have typical cough. Tachycardic and tachypneic. Sounds like he had a discussion with [facility] and is likely that he will consider hospice upon discharge. 08/08 No acute events overnight. Patient feeling all right. Slowly and gradually weaning down his oxygen requirements. Has cough and shortness of breath but stable. 08/09 Continues on Vapotherm with a FiO2 of 70%, 50 L/min flow rate. Discussed guarded prognosis and uncertain trajectory of his acute on chronic illness. Patient is considering hospice however wants to continue current cares in hopes that he will improve enough to discharge home. Continues on Solu-Medrol IV. 08/10 Patient continues to Vapotherm with high oxygen requirements, no significant improvement since yesterday. Chest x-ray shows a possible increase in infiltrates. Added morphine IV as needed for dyspnea. Continue oxygen supplementation with Vapotherm and monitor for improvement in respiratory status. Guarded prognosis. 08/11 Oxygen supplementation modestly improved today. The patient feels like morphine is more effective for him than Ativan for dyspnea. Goals of care discussed with the patient and his at bedside today, all available options were discussed in detail including home hospice, comfort cares in the hospital and continuing with aggressive cares. Patient said he would discuss the options further with his . 08/12 Respiratory status unchanged, the patient said he does not have any questions when I saw him this morning. 08/13 No improvement in respiratory status. The patient is planning to talk to additional family members later today. The patient did not have any questions when I spoke to him this morning. 08/14: Patient is calm, cooperative and has no active complaints or concerns. RN was present at the bedside to discuss plan of care. Constitutional Vitals: Vital Signs Temp Pulse Resp BP Pulse Ox O2 Del Method O2 Flow Rate 98.3 F 92 H 25 H 99/82 100 Heated High Flow Nasal Cannula 55 08/14/22 04:00 08/14/22 07:14 08/14/22 07:14 08/14/22 06:00 08/14/22 07:14 08/14/22 07:14 08/14/22 07:14 Period Temp Pulse Resp BP Sys/Ashraf Pulse Ox O2 Del Method O2 Flow Rate Last 24 Hr 97.9 F-98.4 F 92-126 16-32 96-129/77-101 92-100 Heated High Flow Nasal Ca-Heated High Flow Nasal Ca 50-55 Intake and Output 08/13/22 08/14/22 08/14/22 19:59 03:59 11:59 Intake Total 500 Output Total 450 500 Balance -450 0 Weight 46.266 kg Intake & Output: Intake & Output 08/13/22 08/14/22 08/14/22 19:59 03:59 11:59 Intake Total 500 Output Total 450 500 Balance -450 0 Weight 46.266 kg Intake: Oral 500 Output: Void Amount 450 500 Other: Meal Dinner Percent of Meal Consumed 50% Urine Appearance Clear Clear Urine Color Dark Yellow Dark Yellow Urine Odor Strong Head Head exam: Present atraumatic and normal inspection Eye Eye exam: Present normal appearance ENT ENT exam: Present mucous membranes moist, normal exam and normal external ear exam Neck Neck exam: Present normal inspection Respiratory Respiratory exam: Present normal respiratory exam Cardiovascular Cardiovascular exam: Present normal rate and rhythm GI/Abdominal GI/Abdominal exam: Present normal bowel sounds Back Exam Back exam: Present normal inspection Neurological Exam Neurological exam: Present alert and oriented X3 Skin Skin exam: Present intact and warm OBJ DATA Labs 08/06/22 12:33 08/11/22 05:05 Meds: Medications Acetaminophen (Acetaminophen 325 Mg Tablet) 650 mg PO Q6HP PRN PRN Reason: fever > 101 Last Admin: 08/09/22 15:52 Dose: 650 mg Hydrocodone Bitart/Acetaminophen (Hydrocodone/Apap 5/325mg Tablet) 1 tab PO Q4HP PRN PRN Reason: PAIN LEVEL 3-6 Last Admin: 08/11/22 21:42 Dose: 1 tab Budesonide (Budesonide 0.5 Mg/2 Ml Ampul.Neb) 0.5 mg NEB Q12 [facility] Last Admin: 08/14/22 08:54 Dose: 0.5 mg Cetirizine HCl (Cetirizine 10 Mg Tablet) 10 mg PO DAILY [facility] Last Admin: 08/13/22 08:56 Dose: 10 mg Dextrose (Dextrose 50% 50 Ml Vial) 0 ml IV UD PRN PRN Reason: Per Sliding Scale Diagnostic Test (Pha) (Accu-Chek 1 Each Strip) 1 each FS ACHS [facility] Last Admin: 08/14/22 07:57 Dose: 1 each Diltiazem HCl (Diltiazem 30 Mg Tablet) 30 mg PO TID [facility] Last Admin: 08/13/22 20:38 Dose: 30 mg Diphenhydramine HCl (Diphenhydramine 25 Mg Capsule) 0 mg PO BIDP PRN PRN Reason: Allergic Symptoms Docusate Sodium (Docusate Sodium 100 Mg Capsule) 100 mg PO BID [facility] Last Admin: 08/13/22 20:32 Dose: Not Given Enoxaparin Sodium (Enoxaparin 30 Mg/0.3 Ml Syringe) 30 mg SQ DAILY [facility] Last Admin: 08/13/22 08:55 Dose: 30 mg Fluticasone Propionate (Fluticasone Propionate [place].Lisbeth) 2 spray NS QDAY [facility] Last Admin: 08/13/22 08:55 Dose: 2 spray Glucose (Dextrose 31 Gm Oral.Susp) 15 gm PO PRN PRN PRN Reason: Hypoglycemia Potassium Chloride 40 meq/ (Dextrose) 520 mls @ 130 mls/hr IV UD PRN PRN Reason: Potassium Level < 3 Magnesium Sulfate (Magnesium Sulfate) 2 gm in 50 mls @ 25 mls/hr IV UD PRN PRN Reason: Magnesium Level </= 1.6 Insulin Human Lispro (Insulin Lispro 1 Unit/0.01 Ml Unit) 0 unit SQ ACHS [facility]; Protocol Last Admin: 08/14/22 07:58 Dose: Not Given Ipratropium [place] (Ipratropium 2.5 Ml Ampul.Neb) 2.5 ml NEB Q6HRT [facility] Last Admin: 08/14/22 07:05 Dose: 2.5 ml Levalbuterol HCl (Levalbuterol 1.25 Mg/3 Ml Ampul.Neb) 1.25 mg NEB Q6HRT [facility] Last Admin: 08/14/22 07:05 Dose: 1.25 mg Lidocaine HCl (Lidocaine Viscous 2% 15 Ml Unit Dose Cup) 15 ml PO Q4HP PRN PRN Reason: Sore Throat Last Admin: 08/10/22 22:48 Dose: 15 ml Lorazepam (Lorazepam 0.5 Mg Tablet) 0 mg PO TIDP PRN PRN Reason: anxiety Last Admin: 08/13/22 11:30 Dose: 0.5 mg Methylprednisolone Sodium Succinate (Methylprednisolone Sod Succ 40 Mg/Ml Vial) 40 mg IV Q8 [facility] Last Admin: 08/14/22 05:25 Dose: 40 mg Metoprolol Tartrate (Metoprolol Tartrate 5 Mg/5 Ml Vial) 5 mg IV Q2HP PRN PRN Reason: Tachyarrhythmias HR>110 Last Admin: 08/07/22 13:13 Dose: 5 mg Morphine Sulfate (Morphine 2 Mg/Ml Vial) 2 mg IV Q1HP PRN; Protocol PRN Reason: Anxiety and dyspnea Last Admin: 08/14/22 08:00 Dose: 2 mg Omeprazole (Omeprazole 20 Mg Capsule) 40 mg PO ACB [facility] Last Admin: 08/14/22 07:53 Dose: 40 mg Ondansetron HCl (Ondansetron 4 Mg/2 Ml Vial) 4 mg IV Q4HP PRN PRN Reason: Nausea And Vomiting Umeclidinium- Vilanterol [Anoro Ellipta] 62.5-25 Mcg Inhaler 1 dose INH DAILY [facility] Last Admin: 08/13/22 08:56 Dose: 1 dose Polyethylene Glycol (Polyethylene Glycol 3350 17 Gm Packet) 17 gm PO DAILYP PRN PRN Reason: Constipation Potassium Chloride (Potassium Chloride 20 Meq Tablet) 40 meq PO UD PRN PRN Reason: Potassium Level of 3-3.5 Potassium Chloride (Potassium Chloride 20 Meq Tablet) 40 meq PO UD PRN PRN Reason: Potassium Level < 3 Senna (Sennosides 1 Tablet) 2 tab PO DAILYP PRN PRN Reason: Constipation Last Admin: 08/06/22 20:35 Dose: 2 tab Sodium Chloride (0.9 % Sodium Chloride 10 Ml Syringe) 10 ml IV Q8 [facility] Last Admin: 08/14/22 05:25 Dose: 10 ml Sodium Chloride (Sodium Chloride Nasal 1 [place] Bottle) 2 spray LISBETH Q4HP PRN PRN Reason: Congestion Throat Lozenges (Benzocaine/Menthol 1 Lozenge) 1 lozenge PO PRN PRN PRN Reason: Sore Throat Last Admin: 08/11/22 17:28 Dose: 1 lozenge A/P Narrative A/P Narrative: Assessment: 57-year-old male with end-stage pulmonary fibrosis admitted for acute on chronic hypoxemic respiratory failure. Work-up was not suggestive of a pulmonary embolism or infectious etiology. The patient is being treated with systemic steroids however ihas not improved and continues to require high level oxygen support with heated and humidified high flow nasal cannula. It is increasing unlikely that the patient will improve to the point that he could discharge to home, even with hospice. #Acute on chronic hypoxic respiratory failure: 2/2 end-stage pulmonary fibrosis #End-stage Pulmonary fibrosis exacerbation (at least 10L O2@home): #COPD / Bronchiectasis : #Chronic leukocytosis: #Sinus Tachycardia, chronic: #GERD / Rico's esophagus: #h/o colon cancer #Malnourishment: #Anemia, chronic: #Anxiety: #Guarded prognosis Plan: -Solumedrol 40 mg IV every 8 hours. -Oxygen supplementation. -Scheduled xopenex/ipratropium and prn nebs, budesonide nebs -PO diltiazem. -monitor/trend electrolyte abnormalities -prn morphine IV for dyspnea -As needed Ativan p.o. for anxiety. -PT and OT -DVT prophylaxis: Lovenox -Code status: DNR/DNI Time Spent With Patient Time: Total time spent is greater than 50% in coordination of care (as documented) at patient's floor/unit and/or counseling patient: Subsequent: Total time with patient: 25 - 34 minutes QUALITY Stroke Symptom Onset Unknown: No VTE Deep Vein Thrombosis/Pulmonary Embolism Present on Admission: No
[2022-08-14] MEDS: DILTIAZEM 30 MG TABLET PO SCH ×3 (09:22→21:38)
[2022-08-14] MEDS: FLUTICASONE PROPIONATE SPRAY.NAS NS SCH (09:23)
[2022-08-14] MEDS: DOCUSATE SODIUM 100 MG CAPSULE PO SCH ×2 (09:23→21:38)
[2022-08-14] MEDS: CETIRIZINE 10 MG TABLET PO SCH (09:23)
[2022-08-14] MEDS: ENOXAPARIN 30 MG/0.3 ML SYRINGE SQ SCH (09:24)
[2022-08-14] MEDS: Umeclidinium-Vilanterol [Anoro Ellipta] 62.5-25 mcg Inhaler INH SCH (09:30)
[2022-08-14] MEDS: ACETAMINOPHEN 325 MG TABLET PO PRN (20:29)
[2022-08-14] MEDS: diphenhydrAMINE 25 MG CAPSULE PO PRN (22:10)
[2022-08-15] MEDS: morphine 2 MG/ML VIAL IV PRN ×7 (00:15→21:46)
[2022-08-15] MEDS: 0.9 % SODIUM CHLORIDE 10 ML SYRINGE IV SCH ×4 (00:16→22:31)
[2022-08-15] MEDS: LEVALBUTEROL 1.25 MG/3 ML AMPUL.NEB NEB SCH ×4 (02:18→18:40)
[2022-08-15] MEDS: IPRATROPIUM 2.5 ML AMPUL.NEB NEB SCH ×4 (02:33→18:40)
[2022-08-15] MEDS: LORazepam 0.5 MG TABLET PO PRN ×2 (04:19→14:43)
[2022-08-15] MEDS: methylPREDNISolone SOD SUCC 40 MG/ML VIAL IV SCH ×3 (05:58→22:31)
[2022-08-15] MEDS: OMEPRAZOLE 20 MG CAPSULE PO SCH (07:51)
[2022-08-15] MEDS: DILTIAZEM 30 MG TABLET PO SCH ×3 (08:45→21:46)
[2022-08-15] MEDS: FLUTICASONE PROPIONATE SPRAY.NAS NS SCH (08:45)
[2022-08-15] MEDS: ENOXAPARIN 30 MG/0.3 ML SYRINGE SQ SCH (08:45)
[2022-08-15] MEDS: DOCUSATE SODIUM 100 MG CAPSULE PO SCH ×2 (08:45→21:46)
[2022-08-15] MEDS: CETIRIZINE 10 MG TABLET PO SCH (08:46)
[2022-08-15] MEDS: Umeclidinium-Vilanterol [Anoro Ellipta] 62.5-25 mcg Inhaler INH SCH (08:46)
[2022-08-15] MEDS: BUDESONIDE 0.5 MG/2 ML AMPUL.NEB NEB SCH ×4 (08:49→21:48)
--- NOTE | 2022-08-15 09:19 | Internal Med Progress Note ---
SUBJECTIVE Subjective Patient information: Note initiated : 08/15/22 at 9:18 am Service Date, if different from initiated Date: [] Patient: Ned Fortune a 57 y/o M admitted on 08/06/22 for Shortness of breath. Chief Complaint: [Acute hypoxemic respiratory failure] Principal diagnosis: Advanced pulmonary fibrosis Interval history: History of present illness: Mr. Fortune is a 57 year old M Presents back to the ED for increased shortness of breath. 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 He has been admitted multiple times since April. He is also had multiple ED visits. He is on 10 L or more with several concentrators of oxygen at home. He is hoping to just make it to his daughters wedding in September. They have had the discussion of moving up the wedding date but it does not seem feasible per family and they say "it is what it is", knowing he will be at the wedding "one way or the other". Patient states for the past couple days he just had increasing oxygen need up to 20 L with all other concentrators. His cough is similar to what its been But his shortness of breath is noticeably worse. Vital signs in the ED showed sinus tachycardia which is common for him. He was tachypneic he was initially started on a nonrebreather but then was placed on vapotherm. In the ED Patient was given Solu-Medrol and breathing treatments. chronci leukocytosis. CTA chest showing severe pulmonary fibrosis unchanged. No PE. No edema noted Patient found to have leukocytosis of 19,000 which is chronic for him. We will check manual differential. 08/07 Ned feels like he is breathing a little better than yesterday. Less short of breath but desats quickly and easily and does take a while to bring it back. He does have typical cough. Tachycardic and tachypneic. Sounds like he had a discussion with [facility] and is likely that he will consider hospice upon discharge. 08/08 No acute events overnight. Patient feeling all right. Slowly and gradually weaning down his oxygen requirements. Has cough and shortness of breath but stable. 08/09 Continues on Vapotherm with a FiO2 of 70%, 50 L/min flow rate. Discussed guarded prognosis and uncertain trajectory of his acute on chronic illness. Patient is considering hospice however wants to continue current cares in hopes that he will improve enough to discharge home. Continues on Solu-Medrol IV. 08/10 Patient continues to Vapotherm with high oxygen requirements, no significant improvement since yesterday. Chest x-ray shows a possible increase in infiltrates. Added morphine IV as needed for dyspnea. Continue oxygen s upplementation with Vapotherm and monitor for improvement in respiratory status. Guarded prognosis. 08/11 Oxygen supplementation modestly improved today. The patient feels like morphine is more effective for him than Ativan for dyspnea. Goals of care discussed with the patient and his at bedside today, all available options were discussed in detail including home hospice, comfort cares in the hospital and continuing with aggressive cares. Patient said he would discuss the options further with his . 08/12 Respiratory status unchanged, the patient said he does not have any questions when I saw him this morning. 08/13 No improvement in respiratory status. The patient is planning to talk to additional family members later today. The patient did not have any questions when I spoke to him this morning. 08/14: Patient is calm, cooperative and has no active complaints or concerns. RN was present at the bedside to discuss plan of care. 08/15: Patient is medically status quo. He is pleasant calm and cooperative. Constitutional Vitals: Vital Signs Temp Pulse Resp BP Pulse Ox O2 Del Method O2 Flow Rate 98.6 F 115 H 23 H 129/101 98 Heated High Flow Nasal Cannula 55 08/15/22 08:00 08/15/22 08:00 08/15/22 08:00 08/15/22 08:00 08/15/22 08:00 08/15/22 08:00 08/15/22 08:00 Period Temp Pulse Resp BP Sys/Ashraf Pulse Ox O2 Del Method O2 Flow Rate Last 24 Hr 97.2 F-98.6 F 68-123 11-48 100-145/78-101 93-100 Heated High Flow Nasal Ca-Heated High Flow Nasal Ca 55-55 Intake and Output 08/14/22 08/15/22 08/15/22 19:59 03:59 11:59 Intake Total 360 240 Output Total 250 450 275 Balance 110 -210 -275 Weight 44.996 kg Intake & Output: Intake & Output 08/14/22 08/15/22 08/15/22 19:59 03:59 11:59 Intake Total 360 240 Output Total 250 450 275 Balance 110 -210 -275 Weight 44.996 kg Intake: Oral 360 240 Output: Void Amount 250 450 275 Other: Meal Dinner Percent of Meal Consumed 100% 100% Feeding Ability Independent Urine Appearance Clear Clear Urine Color Dark Yellow Dark Yellow Urine Odor Normal Normal Head Head exam: Present atraumatic and normal inspection Eye Eye exam: Present normal appearance ENT ENT exam: Present mucous membranes moist, normal exam and normal external ear exam Neck Neck exam: Present normal inspection Respiratory Respiratory exam: Present rales and rhonchi; Absent respiratory distress Cardiovascular Cardiovascular exam: Present normal rate and rhythm GI/Abdominal GI/Abdominal exam: Present normal bowel sounds Back Exam Back exam: Present normal inspection Neurological Exam Neurological exam: Present alert and oriented X3 Skin Skin exam: Present intact and warm OBJ DATA Labs 08/06/22 12:33 08/11/22 05:05 Meds: Medications Acetaminophen (Acetaminophen 325 Mg Tablet) 650 mg PO Q6HP PRN PRN Reason: fever > 101 Last Admin: 08/14/22 20:29 Dose: 650 mg Hydrocodone Bitart/Acetaminophen (Hydrocodone/Apap 5/325mg Tablet) 1 tab PO Q4HP PRN PRN Reason: PAIN LEVEL 3-6 Last Admin: 08/11/22 21:42 Dose: 1 tab Budesonide (Budesonide 0.5 Mg/2 Ml Ampul.Neb) 0.5 mg NEB Q12 [facility] BEDS AT [facility] Last Admin: 08/15/22 08:49 Dose: 0.5 mg Cetirizine HCl (Cetirizine 10 Mg Tablet) 10 mg PO DAILY [facility] 234 BEDS AT [facility] Last Admin: 08/15/22 08:46 Dose: 10 mg Diltiazem HCl (Diltiazem 30 Mg Tablet) 30 mg PO TID [facility]CLUDE 234 BEDS AT [facility] Last Admin: 08/15/22 08:45 Dose: 30 mg Diphenhydramine HCl (Diphenhydramine 25 Mg Capsule) 0 mg PO BIDP PRN PRN Reason: Allergic Symptoms Last Admin: 08/14/22 22:10 Dose: 25 mg Docusate Sodium (Docusate Sodium 100 Mg Capsule) 100 mg PO BID [facility]CLUDE 234 BEDS AT [facility] Last Admin: 08/15/22 08:45 Dose: Not Given Enoxaparin Sodium (Enoxaparin 30 Mg/0.3 Ml Syringe) 30 mg SQ DAILY [facility] 234 BEDS AT [facility] Last Admin: 08/15/22 08:45 Dose: 30 mg Fluticasone Propionate (Fluticasone Propionate [place].Lisbeth) 2 spray NS QDAY [facility] 234 BEDS [facility] Last Admin: 08/15/22 08:45 Dose: 2 spray Potassium Chloride 40 meq/ (Dextrose) 520 mls @ 130 mls/hr IV UD PRN PRN Reason: Potassium Level < 3 Magnesium Sulfate (Magnesium Sulfate) 2 gm in 50 mls @ 25 mls/hr IV UD PRN PRN Reason: Magnesium Level </= 1.6 Ipratropium [place] (Ipratropium 2.5 Ml Ampul.Neb) 2.5 ml NEB Q6HRT [facility] 234 BEDS AT [facility] Last Admin: 08/15/22 07:19 Dose: 2.5 ml Levalbuterol HCl (Levalbuterol 1.25 Mg/3 Ml Ampul.Neb) 1.25 mg NEB Q6HRT [facility] 234 BEDS AT [facility] Last Admin: 08/15/22 07:19 Dose: 1.25 mg Lidocaine HCl (Lidocaine Viscous 2% 15 Ml Unit Dose Cup) 15 ml PO Q4HP PRN PRN Reason: Sore Throat Last Admin: 08/10/22 22:48 Dose: 15 ml Lorazepam (Lorazepam 0.5 Mg Tablet) 0 mg PO TIDP PRN PRN Reason: anxiety Last Admin: 08/15/22 04:19 Dose: 1 mg Methylprednisolone Sodium Succinate (Methylprednisolone Sod Succ 40 Mg/Ml Vial) 40 mg IV Q8 [facility] 234 BEDS [facility] Last Admin: 08/15/22 05:58 Dose: 40 mg Metoprolol Tartrate (Metoprolol Tartrate 5 Mg/5 Ml Vial) 5 mg IV Q2HP PRN PRN Reason: Tachyarrhythmias HR>110 Last Admin: 08/07/22 13:13 Dose: 5 mg Morphine Sulfate (Morphine 2 Mg/Ml Vial) 2 mg IV Q1HP PRN; Protocol PRN Reason: Anxiety and dyspnea Last Admin: 08/15/22 08:46 Dose: 2 mg Omeprazole (Omeprazole 20 Mg Capsule) 40 mg PO ACB [facility]CLUDE 234 BEDS AT [facility] Last Admin: 08/15/22 07:51 Dose: 40 mg Ondansetron HCl (Ondansetron 4 Mg/2 Ml Vial) 4 mg IV Q4HP PRN PRN Reason: Nausea And Vomiting Umeclidinium- Vilanterol [Anoro Ellipta] 62.5-25 Mcg Inhaler 1 dose INH DAILY [facility] 234 BEDS AT [facility] Last Admin: 08/15/22 08:46 Dose: 1 dose Polyethylene Glycol (Polyethylene Glycol 3350 17 Gm Packet) 17 gm PO DAILYP PRN PRN Reason: Constipation Potassium Chloride (Potassium Chloride 20 Meq Tablet) 40 meq PO UD PRN PRN Reason: Potassium Level of 3-3.5 Potassium Chloride (Potassium Chloride 20 Meq Tablet) 40 meq PO UD PRN PRN Reason: Potassium Level < 3 Senna (Sennosides 1 Tablet) 2 tab PO DAILYP PRN PRN Reason: Constipation Last Admin: 08/06/22 20:35 Dose: 2 tab Sodium Chloride (0.9 % Sodium Chloride 10 Ml Syringe) 10 ml IV Q8 [facility]CLUDE 234 BEDS AT [facility] Last Admin: 08/15/22 05:59 Dose: 10 ml Sodium Chloride (Sodium Chloride Nasal 1 [place] Bottle) 2 spray LISBETH Q4HP PRN PRN Reason: Congestion Throat Lozenges (Benzocaine/Menthol 1 Lozenge) 1 lozenge PO PRN PRN PRN Reason: Sore Throat Last Admin: 08/11/22 17:28 Dose: 1 lozenge A/P Narrative A/P Narrative: Assessment: 57-year-old male with end-stage pulmonary fibrosis admitted for acute on chronic hypoxemic respiratory failure. Work-up was not suggestive of a pulmonary embolism or infectious etiology. The patient is being treated with systemic steroids however ihas not improved and continues to require high level oxygen support with heated and humidified high flow nasal cannula. It is increasing unlikely that the patient will improve to the point that he could discharge to home, even with hospice. #Acute on chronic hypoxic respiratory failure: 2/2 end-stage pulmonary fibrosis #End-stage Pulmonary fibrosis exacerbation (at least 10L O2@home): #COPD / Bronchiectasis : #Chronic leukocytosis: #Sinus Tachycardia, chronic: #GERD / Rico's esophagus: #h/o colon cancer #Malnourishment: #Anemia, chronic: #Anxiety: #Guarded prognosis Plan: -Solumedrol 40 mg IV every 8 hours. -Oxygen supplementation. -Scheduled xopenex/ipratropium and prn nebs, budesonide nebs -PO diltiazem. -monitor/trend electrolyte abnormalities -prn morphine IV for dyspnea -As needed Ativan p.o. for anxiety. -PT and OT -DVT prophylaxis: Lovenox -Code status: DNR/DNI Time Spent With Patient Time: Total time spent is greater than 50% in coordination of care (as documented) at patient's floor/unit and/or counseling patient: Subsequent: Total time with patient: 25 - 34 minutes QUALITY Stroke Symptom Onset Unknown: No VTE Deep Vein Thrombosis/Pulmonary Embolism Present on Admission: No
[2022-08-15] MEDS: ACETAMINOPHEN 325 MG TABLET PO PRN (20:30)
[2022-08-15] MEDS: diphenhydrAMINE 25 MG CAPSULE PO PRN (22:32)
[2022-08-16] MEDS: morphine 2 MG/ML VIAL IV PRN ×5 (00:34→20:18)
[2022-08-16] MEDS: diphenhydrAMINE 25 MG CAPSULE PO PRN ×2 (00:35→20:35)
[2022-08-16] MEDS: LORazepam 0.5 MG TABLET PO PRN ×4 (01:48→22:03)
[2022-08-16] MEDS: IPRATROPIUM 2.5 ML AMPUL.NEB NEB SCH ×4 (01:54→19:08)
[2022-08-16] MEDS: LEVALBUTEROL 1.25 MG/3 ML AMPUL.NEB NEB SCH ×4 (01:54→19:08)
[2022-08-16] MEDS: 0.9 % SODIUM CHLORIDE 10 ML SYRINGE IV SCH ×4 (05:51→22:03)
[2022-08-16] MEDS: methylPREDNISolone SOD SUCC 40 MG/ML VIAL IV SCH ×3 (05:53→22:03)
[2022-08-16] MEDS: DILTIAZEM 30 MG TABLET PO SCH ×3 (08:41→20:36)
[2022-08-16] MEDS: FLUTICASONE PROPIONATE SPRAY.NAS NS SCH (08:42)
[2022-08-16] MEDS: BENZOCAINE/MENTHOL 1 LOZENGE PO PRN (08:42)
[2022-08-16] MEDS: Umeclidinium-Vilanterol [Anoro Ellipta] 62.5-25 mcg Inhaler INH SCH (08:42)
[2022-08-16] MEDS: ENOXAPARIN 30 MG/0.3 ML SYRINGE SQ SCH (08:42)
[2022-08-16] MEDS: CETIRIZINE 10 MG TABLET PO SCH (08:42)
[2022-08-16] MEDS: OMEPRAZOLE 20 MG CAPSULE PO SCH (08:45)
--- NOTE | 2022-08-16 08:53 | Internal Med Progress Note ---
SUBJECTIVE Subjective Patient information: Note initiated : 08/16/22 at 8:52 am Service Date, if different from initiated Date: [] Patient: Ned Fortune a 57 y/o M admitted on 08/06/22 for Shortness of breath. Chief Complaint: [] Principal diagnosis: Advanced pulmonary fibrosis Interval history: History of present illness: Mr. Fortune is a 57 year old M Presents back to the ED for increased shortness of breath. 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 He has been admitted multiple times since April. He is also had multiple ED visits. He is on 10 L or more with several concentrators of oxygen at home. He is hoping to just make it to his daughters wedding in September. They have had the discussion of moving up the wedding date but it does not seem feasible per family and they say "it is what it is", knowing he will be at the wedding "one way or the other". Patient states for the past couple days he just had increasing oxygen need up to 20 L with all other concentrators. His cough is similar to what its been But his shortness of breath is noticeably worse. Vital signs in the ED showed sinus tachycardia which is common for him. He was tachypneic he was initially started on a nonrebreather but then was placed on vapotherm. In the ED Patient was given Solu-Medrol and breathing treatments. chronci leukocytosis. CTA chest showing severe pulmonary fibrosis unchanged. No PE. No edema noted Patient found to have leukocytosis of 19,000 which is chronic for him. We will check manual differential. 08/07 Ned feels like he is breathing a little better than yesterday. Less short of breath but desats quickly and easily and does take a while to bring it back. He does have typical cough. Tachycardic and tachypneic. Sounds like he had a discussion with [facility] and is likely that he will consider hospice upon discharge. 08/08 No acute events overnight. Patient feeling all right. Slowly and gradually weaning down his oxygen requirements. Has cough and shortness of breath but stable. 08/09 Continues on Vapotherm with a FiO2 of 70%, 50 L/min flow rate. Discussed guarded prognosis and uncertain trajectory of his acute on chronic illness. Patient is considering hospice however wants to continue current cares in hopes that he will improve enough to discharge home. Continues on Solu-Medrol IV. 08/10 Patient continues to Vapotherm with high oxygen requirements, no significant improvement since yesterday. Chest x-ray shows a possible increase in infiltra eda. Added morphine IV as needed for dyspnea. Continue oxygen supplementation with Vapotherm and monitor for improvement in respiratory status. Guarded prognosis. 08/11 Oxygen supplementation modestly improved today. The patient feels like morphine is more effective for him than Ativan for dyspnea. Goals of care discussed with the patient and his at bedside today, all available options were discussed in detail including home hospice, comfort cares in the hospital and continuing with aggressive cares. Patient said he would discuss the options further with his . 08/12 Respiratory status unchanged, the patient said he does not have any questions when I saw him this morning. 08/13 No improvement in respiratory status. The patient is planning to talk to additional family members later today. The patient did not have any questions when I spoke to him this morning. 08/14: Patient is calm, cooperative and has no active complaints or concerns. RN was present at the bedside to discuss plan of care. 08/15: Patient is medically status quo. He is pleasant calm and cooperative. 08/16: No active medical concerns. Completing ongoing legal paperwork Constitutional Vitals: Vital Signs Temp Pulse Resp BP Pulse Ox O2 Del Method O2 Flow Rate 98.2 F 88 24 H 113/90 96 Heated High Flow Nasal Cannula 55 08/16/22 04:58 08/16/22 07:23 08/16/22 07:23 08/16/22 06:00 08/16/22 07:23 08/16/22 06:00 08/16/22 06:00 Period Temp Pulse Resp BP Sys/Ashraf Pulse Ox O2 Del Method O2 Flow Rate Last 24 Hr 97.9 F-98.4 F 75-110 12-36 104-128/79-99 93-99 Heated High Flow Nasal Ca-Heated High Flow Nasal Ca 55-55 Intake and Output 08/15/22 08/16/22 08/16/22 19:59 03:59 11:59 Intake Total 600 540 Output Total 570 225 400 Balance 30 -225 140 Weight 44.996 kg 47.4 kg Intake & Output: Intake & Output 08/15/22 08/16/22 08/16/22 19:59 03:59 11:59 Intake Total 600 540 Output Total 570 225 400 Balance 30 -225 140 Weight 44.996 kg 47.4 kg Intake: Oral 600 540 Output: Void Amount 570 225 400 Other: Meal Dinner Percent of Meal Consumed 100% Feeding Ability Assist with Tray Set Up Urine Appearance Clear Clear Clear Urine Color Dark Yellow Dark Yellow Dark Yellow Urine Odor Normal Head Head exam: Present atraumatic and normal inspection Eye Eye exam: Present normal appearance ENT ENT exam: Present mucous membranes moist, normal exam and normal external ear exam Neck Neck exam: Present normal inspection Respiratory Respiratory exam: Present normal respiratory exam Cardiovascular Cardiovascular exam: Present normal rate and rhythm GI/Abdominal GI/Abdominal exam: Present normal bowel sounds Back Exam Back exam: Present normal inspection Neurological Exam Neurological exam: Present alert and oriented X3 Skin Skin exam: Present intact and warm OBJ DATA Labs 08/06/22 12:33 08/11/22 05:05 Meds: Medications Acetaminophen (Acetaminophen 325 Mg Tablet) 650 mg PO Q6HP PRN PRN Reason: fever > 101 Last Admin: 08/15/22 20:30 Dose: 650 mg Hydrocodone Bitart/Acetaminophen (Hydrocodone/Apap 5/325mg Tablet) 1 tab PO Q4HP PRN PRN Reason: PAIN LEVEL 3-6 Last Admin: 08/11/22 21:42 Dose: 1 tab Budesonide (Budesonide 0.5 Mg/2 Ml Ampul.Neb) 0.5 mg NEB Q12 [facility] Last Admin: 08/15/22 21:48 Dose: Not Given Cetirizine HCl (Cetirizine 10 Mg Tablet) 10 mg PO DAILY [facility] Last Admin: 08/16/22 08:42 Dose: 10 mg Diltiazem HCl (Diltiazem 30 Mg Tablet) 30 mg PO TID [facility] Last Admin: 08/16/22 08:41 Dose: 30 mg Diphenhydramine HCl (Diphenhydramine 25 Mg Capsule) 0 mg PO BIDP PRN PRN Reason: Allergic Symptoms Last Admin: 08/16/22 00:35 Dose: 50 mg Docusate Sodium (Docusate Sodium 100 Mg Capsule) 100 mg PO BID [facility] Last Admin: 08/15/22 21:46 Dose: Not Given Enoxaparin Sodium (Enoxaparin 30 Mg/0.3 Ml Syringe) 30 mg SQ DAILY [facility] Last Admin: 08/16/22 08:42 Dose: 30 mg Fluticasone Propionate (Fluticasone Propionate [place].Lisbeth) 2 spray NS QDAY [facility] Last Admin: 08/16/22 08:42 Dose: 2 spray Potassium Chloride 40 meq/ (Dextrose) 520 mls @ 130 mls/hr IV UD PRN PRN Reason: Potassium Level < 3 Magnesium Sulfate (Magnesium Sulfate) 2 gm in 50 mls @ 25 mls/hr IV UD PRN PRN Reason: Magnesium Level </= 1.6 Ipratropium [place] (Ipratropium 2.5 Ml Ampul.Neb) 2.5 ml NEB Q6HRT [facility] Last Admin: 08/16/22 06:41 Dose: 2.5 ml Levalbuterol HCl (Levalbuterol 1.25 Mg/3 Ml Ampul.Neb) 1.25 mg NEB Q6HRT [facility] Last Admin: 08/16/22 06:45 Dose: 1.25 mg Lidocaine HCl (Lidocaine Viscous 2% 15 Ml Unit Dose Cup) 15 ml PO Q4HP PRN PRN Reason: Sore Throat Last Admin: 08/10/22 22:48 Dose: 15 ml Lorazepam (Lorazepam 0.5 Mg Tablet) 0 mg PO TIDP PRN PRN Reason: anxiety Last Admin: 08/16/22 08:42 Dose: 0.5 mg Methylprednisolone Sodium Succinate (Methylprednisolone Sod Succ 40 Mg/Ml Vial) 40 mg IV Q8 [facility] Last Admin: 08/16/22 05:53 Dose: 40 mg Metoprolol Tartrate (Metoprolol Tartrate 5 Mg/5 Ml Vial) 5 mg IV Q2HP PRN PRN Reason: Tachyarrhythmias HR>110 Last Admin: 08/07/22 13:13 Dose: 5 mg Morphine Sulfate (Morphine 2 Mg/Ml Vial) 2 mg IV Q1HP PRN; Protocol PRN Reason: Anxiety and dyspnea Last Admin: 08/16/22 08:42 Dose: 2 mg Omeprazole (Omeprazole 20 Mg Capsule) 40 mg PO ACB [facility] Last Admin: 08/16/22 08:45 Dose: 40 mg Ondansetron HCl (Ondansetron 4 Mg/2 Ml Vial) 4 mg IV Q4HP PRN PRN Reason: Nausea And Vomiting Umeclidinium- Vilanterol [Anoro Ellipta] 62.5-25 Mcg Inhaler 1 dose INH DAILY [facility] Last Admin: 08/16/22 08:42 Dose: 1 dose Polyethylene Glycol (Polyethylene Glycol 3350 17 Gm Packet) 17 gm PO DAILYP PRN PRN Reason: Constipation Potassium Chloride (Potassium Chloride 20 Meq Tablet) 40 meq PO UD PRN PRN Reason: Potassium Level of 3-3.5 Potassium Chloride (Potassium Chloride 20 Meq Tablet) 40 meq PO UD PRN PRN Reason: Potassium Level < 3 Senna (Sennosides 1 Tablet) 2 tab PO DAILYP PRN PRN Reason: Constipation Last Admin: 08/06/22 20:35 Dose: 2 tab Sodium Chloride (0.9 % Sodium Chloride 10 Ml Syringe) 10 ml IV Q8 [facility] Last Admin: 08/16/22 05:51 Dose: 10 ml Sodium Chloride (Sodium Chloride Nasal 1 [place] Bottle) 2 spray LISBETH Q4HP PRN PRN Reason: Congestion Throat Lozenges (Benzocaine/Menthol 1 Lozenge) 1 lozenge PO PRN PRN PRN Reason: Sore Throat Last Admin: 08/16/22 08:42 Dose: 1 lozenge A/P Narrative A/P Narrative: Assessment: 57-year-old male with end-stage pulmonary fibrosis admitted for acu te on chronic hypoxemic respiratory failure. Work-up was not suggestive of a pulmonary embolism or infectious etiology. The patient is being treated with systemic steroids however ihas not improved and continues to require high level oxygen support with heated and humidified high flow nasal cannula. It is increasing unlikely that the patient will improve to the point that he could discharge to home, even with hospice. #Acute on chronic hypoxic respiratory failure: 2/2 end-stage pulmonary fibrosis #End-stage Pulmonary fibrosis exacerbation (at least 10L O2@home): #COPD / Bronchiectasis : #Chronic leukocytosis: #Sinus Tachycardia, chronic: #GERD / Rico's esophagus: #h/o colon cancer #Malnourishment: #Anemia, chronic: #Anxiety: #Guarded prognosis Plan: -Solumedrol 40 mg IV every 8 hours. -Oxygen supplementation. -Scheduled xopenex/ipratropium and prn nebs, budesonide nebs -PO diltiazem. -monitor/trend electrolyte abnormalities -prn morphine IV for dyspnea -As needed Ativan p.o. for anxiety. -PT and OT -DVT prophylaxis: Lovenox -Code status: DNR/DNI Time Spent With Patient Time: Total time spent is greater than 50% in coordination of care (as documented) at patient's floor/unit and/or counseling patient: Subsequent: Total time with patient: 25 - 34 minutes QUALITY Stroke Symptom Onset Unknown: No VTE Deep Vein Thrombosis/Pulmonary Embolism Present on Admission: No
[2022-08-16] MEDS: DOCUSATE SODIUM 100 MG CAPSULE PO SCH ×2 (09:04→20:36)
[2022-08-16] MEDS: BUDESONIDE 0.5 MG/2 ML AMPUL.NEB NEB SCH ×2 (09:38→19:08)
[2022-08-16] MEDS: ACETAMINOPHEN 325 MG TABLET PO PRN (20:36)
[2022-08-17] MEDS: LEVALBUTEROL 1.25 MG/3 ML AMPUL.NEB NEB SCH ×4 (01:00→19:22)
[2022-08-17] MEDS: IPRATROPIUM 2.5 ML AMPUL.NEB NEB SCH ×4 (01:06→19:22)
[2022-08-17] MEDS: 0.9 % SODIUM CHLORIDE 10 ML SYRINGE IV SCH ×5 (01:30→22:06)
[2022-08-17] MEDS: morphine 2 MG/ML VIAL IV PRN ×7 (01:30→21:07)
[2022-08-17] MEDS: methylPREDNISolone SOD SUCC 40 MG/ML VIAL IV SCH ×3 (05:51→22:07)
--- NOTE | 2022-08-17 08:36 | Internal Med Progress Note ---
SUBJECTIVE Subjective Patient information: Note initiated : 08/17/22 at 8:35 am Service Date, if different from initiated Date: [] Patient: Ned Fortune a 57 y/o M admitted on 08/06/22 for Shortness of breath. Chief Complaint: [] Principal diagnosis: Advanced pulmonary fibrosis Interval history: History of present illness: Mr. Fortune is a 57 year old M Presents back to the ED for increased shortness of breath. 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 He has been admitted multiple times since April. He is also had multiple ED visits. He is on 10 L or more with several concentrators of oxygen at home. He is hoping to just make it to his daughters wedding in September. They have had the discussion of moving up the wedding date but it does not seem feasible per family and they say "it is what it is", knowing he will be at the wedding "one way or the other". Patient states for the past couple days he just had increasing oxygen need up to 20 L with all other concentrators. His cough is similar to what its been But his shortness of breath is noticeably worse. Vital signs in the ED showed sinus tachycardia which is common for him. He was tachypneic he was initially started on a nonrebreather but then was placed on vapotherm. In the ED Patient was given Solu-Medrol and breathing treatments. chronci leukocytosis. CTA chest showing severe pulmonary fibrosis unchanged. No PE. No edema noted Patient found to have leukocytosis of 19,000 which is chronic for him. We will check manual differential. 08/07 Ned feels like he is breathing a little better than yesterday. Less short of breath but desats quickly and easily and does take a while to bring it back. He does have typical cough. Tachycardic and tachypneic. Sounds like he had a discussion with [facility] and is likely that he will consider hospice upon discharge. 08/08 No acute events overnight. Patient feeling all right. Slowly and gradually weaning down his oxygen requirements. Has cough and shortness of breath but stable. 08/09 Continues on Vapotherm with a FiO2 of 70%, 50 L/min flow rate. Discussed guarded prognosis and uncertain trajectory of his acute on chronic illness. Patient is considering hospice however wants to continue current cares in hopes that he will improve enough to discharge home. Continues on Solu-Medrol IV. 08/10 Patient continues to Vapotherm with high oxygen requirements, no significant improvement since yesterday. Chest x-ray shows a possible increase in infiltra eda. Added morphine IV as needed for dyspnea. Continue oxygen supplementation with Vapotherm and monitor for improvement in respiratory status. Guarded prognosis. 08/11 Oxygen supplementation modestly improved today. The patient feels like morphine is more effective for him than Ativan for dyspnea. Goals of care discussed with the patient and his at bedside today, all available options were discussed in detail including home hospice, comfort cares in the hospital and continuing with aggressive cares. Patient said he would discuss the options further with his . 08/12 Respiratory status unchanged, the patient said he does not have any questions when I saw him this morning. 08/13 No improvement in respiratory status. The patient is planning to talk to additional family members later today. The patient did not have any questions when I spoke to him this morning. 08/14: Patient is calm, cooperative and has no active complaints or concerns. RN was present at the bedside to discuss plan of care. 08/15: Patient is medically status quo. He is pleasant calm and cooperative. 08/16: No active medical concerns. Completing ongoing legal paperwork 08/17: Awaiting d/c with hospice Constitutional Vitals: Vital Signs Temp Pulse Resp BP Pulse Ox O2 Del Method O2 Flow Rate 97.8 F 84 14 117/96 92 Heated High Flow Nasal Cannula 50 08/17/22 04:00 08/17/22 07:26 08/17/22 07:26 08/17/22 06:00 08/17/22 07:26 08/17/22 07:26 08/17/22 07:26 Period Temp Pulse Resp BP Sys/Ashraf Pulse Ox O2 Del Method O2 Flow Rate Last 24 Hr 97.6 F-98.5 F 78-117 14-28 104-126/85-98 92-99 Heated High Flow Nasal Ca-High Flow Nasal Cannula 50-55 Intake and Output 08/16/22 08/17/22 08/17/22 19:59 03:59 11:59 Intake Total 120 0 Output Total 200 225 120 Balance -200 -105 -120 Weight 45.631 kg Intake & Output: Intake & Output 08/16/22 08/17/22 08/17/22 19:59 03:59 11:59 Intake Total 120 0 Output Total 200 225 120 Balance -200 -105 -120 Weight 45.631 kg Intake: Oral 120 0 Output: Void Amount 200 225 120 Other: Meal Dinner Percent of Meal Consumed 100% Feeding Ability Independent Urine Appearance Clear Clear Clear Urine Color Yellow Dark Yellow Yellow Urine Odor Normal Head Head exam: Present atraumatic and normal inspection Eye Eye exam: Present normal appearance ENT ENT exam: Present mucous membranes moist, normal exam and normal external ear exam Neck Neck exam: Present normal inspection Respiratory Respiratory exam: Present normal respiratory exam Cardiovascular Cardiovascular exam: Present normal rate and rhythm GI/Abdominal GI/Abdominal exam: Present normal bowel sounds Back Exam Back exam: Present normal inspection Neurological Exam Neurological exam: Present alert and oriented X3 Skin Skin exam: Present intact and warm OBJ DATA Labs 08/06/22 12:33 08/11/22 05:05 Meds: Medications Acetaminophen (Acetaminophen 325 Mg Tablet) 650 mg PO Q6HP PRN PRN Reason: fever > 101 Last Admin: 08/16/22 20:36 Dose: 650 mg Hydrocodone Bitart/Acetaminophen (Hydrocodone/Apap 5/325mg Tablet) 1 tab PO Q4HP PRN PRN Reason: PAIN LEVEL 3-6 Last Admin: 08/11/22 21:42 Dose: 1 tab Budesonide (Budesonide 0.5 Mg/2 Ml Ampul.Neb) 0.5 mg NEB Q12 [facility] Last Admin: 08/16/22 19:08 Dose: 0.5 mg Cetirizine HCl (Cetirizine 10 Mg Tablet) 10 mg PO DAILY [facility] Last Admin: 08/16/22 08:42 Dose: 10 mg Diltiazem HCl (Diltiazem 30 Mg Tablet) 30 mg PO TID [facility] Last Admin: 08/16/22 20:36 Dose: 30 mg Diphenhydramine HCl (Diphenhydramine 25 Mg Capsule) 0 mg PO BIDP PRN PRN Reason: Allergic Symptoms Last Admin: 08/16/22 20:35 Dose: 50 mg Docusate Sodium (Docusate Sodium 100 Mg Capsule) 100 mg PO BID [facility] Last Admin: 08/16/22 20:36 Dose: 100 mg Enoxaparin Sodium (Enoxaparin 30 Mg/0.3 Ml Syringe) 30 mg SQ DAILY [facility] Last Admin: 08/16/22 08:42 Dose: 30 mg Fluticasone Propionate (Fluticasone Propionate [place].Lisbeth) 2 spray NS QDAY [facility] Last Admin: 08/16/22 08:42 Dose: 2 spray Potassium Chloride 40 meq/ (Dextrose) 520 mls @ 130 mls/hr IV UD PRN PRN Reason: Potassium Level < 3 Magnesium Sulfate (Magnesium Sulfate) 2 gm in 50 mls @ 25 mls/hr IV UD PRN PRN Reason: Magnesium Level </= 1.6 Ipratropium [place] (Ipratropium 2.5 Ml Ampul.Neb) 2.5 ml NEB Q6HRT [facility] Last Admin: 08/17/22 06:31 Dose: 2.5 ml Levalbuterol HCl (Levalbuterol 1.25 Mg/3 Ml Ampul.Neb) 1.25 mg NEB Q6HRT [facility] Last Admin: 08/17/22 06:31 Dose: 1.25 mg Lidocaine HCl (Lidocaine Viscous 2% 15 Ml Unit Dose Cup) 15 ml PO Q4HP PRN PRN Reason: Sore Throat Last Admin: 08/10/22 22:48 Dose: 15 ml Lorazepam (Lorazepam 0.5 Mg Tablet) 0 mg PO TIDP PRN PRN Reason: anxiety Last Admin: 08/16/22 22:03 Dose: 1 mg Methylprednisolone Sodium Succinate (Methylprednisolone Sod Succ 40 Mg/Ml Vial) 40 mg IV Q8 [facility] Last Admin: 08/17/22 05:51 Dose: 40 mg Metoprolol Tartrate (Metoprolol Tartrate 5 Mg/5 Ml Vial) 5 mg IV Q2HP PRN PRN Reason: Tachyarrhythmias HR>110 Last Admin: 08/07/22 13:13 Dose: 5 mg Morphine Sulfate (Morphine 2 Mg/Ml Vial) 2 mg IV Q1HP PRN; Protocol PRN Reason: Anxiety and dyspnea Last Admin: 08/17/22 07:41 Dose: 2 mg Omeprazole (Omeprazole 20 Mg Capsule) 40 mg PO ACB [facility] Last Admin: 08/16/22 08:45 Dose: 40 mg Ondansetron HCl (Ondansetron 4 Mg/2 Ml Vial) 4 mg IV Q4HP PRN PRN Reason: Nausea And Vomiting Umeclidinium- Vilanterol [Anoro Ellipta] 62.5-25 Mcg Inhaler 1 dose INH DAILY [facility] Last Admin: 08/16/22 08:42 Dose: 1 dose Polyethylene Glycol (Polyethylene Glycol 3350 17 Gm Packet) 17 gm PO DAILYP PRN PRN Reason: Constipation Potassium Chloride (Potassium Chloride 20 Meq Tablet) 40 meq PO UD PRN PRN Reason: Potassium Level of 3-3.5 Potassium Chloride (Potassium Chloride 20 Meq Tablet) 40 meq PO UD PRN PRN Reason: Potassium Level < 3 Senna (Sennosides 1 Tablet) 2 tab PO DAILYP PRN PRN Reason: Constipation Last Admin: 08/06/22 20:35 Dose: 2 tab Sodium Chloride (0.9 % Sodium Chloride 10 Ml Syringe) 10 ml IV Q8 [facility] Last Admin: 08/17/22 05:51 Dose: 10 ml Sodium Chloride (Sodium Chloride Nasal 1 [place] Bottle) 2 spray LISBETH Q4HP PRN PRN Reason: Congestion Throat Lozenges (Benzocaine/Menthol 1 Lozenge) 1 lozenge PO PRN PRN PRN Reason: Sore Throat Last Admin: 08/16/22 08:42 Dose: 1 lozenge A/P Narrative A/P Narrative: Assessment: 57-year-old male with end-stage pulmonary fibrosis admitted for acute on chronic hypoxemic respiratory failure. Work-up was not suggestive of a pulmonary embolism or infectious etiology. The patient is being treated with systemic steroids however ihas not improved and continues to require high level oxygen support with heated and humidified high flow nasal cannula. It is inc reasing unlikely that the patient will improve to the point that he could discharge to home, even with hospice. #Acute on chronic hypoxic respiratory failure: 2/2 end-stage pulmonary fibrosis #End-stage Pulmonary fibrosis exacerbation (at least 10L O2@home): #COPD / Bronchiectasis : #Chronic leukocytosis: #Sinus Tachycardia, chronic: #GERD / Rico's esophagus: #h/o colon cancer #Malnourishment: #Anemia, chronic: #Anxiety: #Guarded prognosis Plan: -Solumedrol 40 mg IV every 8 hours. -Oxygen supplementation. -Scheduled xopenex/ipratropium and prn nebs, budesonide nebs -PO diltiazem. -monitor/trend electrolyte abnormalities -prn morphine IV for dyspnea -As needed Ativan p.o. for anxiety. -PT and OT -DVT prophylaxis: Lovenox -Code status: DNR/DNI Time Spent With Patient Time: Total time spent is greater than 50% in coordination of care (as documented) at patient's floor/unit and/or counseling patient: Subsequent: Total time with patient: 25 - 34 minutes QUALITY Stroke Symptom Onset Unknown: No VTE Deep Vein Thrombosis/Pulmonary Embolism Present on Admission: No
[2022-08-17] MEDS: BUDESONIDE 0.5 MG/2 ML AMPUL.NEB NEB SCH ×2 (08:59→19:22)
[2022-08-17] MEDS: Umeclidinium-Vilanterol [Anoro Ellipta] 62.5-25 mcg Inhaler INH SCH (09:33)
[2022-08-17] MEDS: FLUTICASONE PROPIONATE SPRAY.NAS NS SCH (09:33)
[2022-08-17] MEDS: ENOXAPARIN 30 MG/0.3 ML SYRINGE SQ SCH (09:33)
[2022-08-17] MEDS: CETIRIZINE 10 MG TABLET PO SCH (09:33)
[2022-08-17] MEDS: OMEPRAZOLE 20 MG CAPSULE PO SCH (09:34)
[2022-08-17] MEDS: LORazepam 0.5 MG TABLET PO PRN ×3 (09:34→18:39)
[2022-08-17] MEDS: DILTIAZEM 30 MG TABLET PO SCH ×3 (09:34→20:48)
[2022-08-17] MEDS: DOCUSATE SODIUM 100 MG CAPSULE PO SCH ×2 (10:40→21:08)
--- NOTE | 2022-08-17 12:59 | Internal Med Progress Note ---
SUBJECTIVE Subjective Patient information: Note initiated : 08/17/22 at 12:56 pm Service Date, if different from initiated Date: [] Patient: Ned Fortune a 57 y/o M admitted on 08/06/22 for Shortness of breath. Chief Complaint: [] Principal diagnosis: Advanced pulmonary fibrosis Interval history: History of present illness: Mr. Fortune is a 57 year old M Presents back to the ED for increased shortness of breath. 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 He has been admitted multiple times since April. He is also had multiple ED visits. He is on 10 L or more with several concentrators of oxygen at home. He is hoping to just make it to his daughters wedding in September. They have had the discussion of moving up the wedding date but it does not seem feasible per family and they say "it is what it is", knowing he will be at the wedding "one way or the other". Patient states for the past couple days he just had increasing oxygen need up to 20 L with all other concentrators. His cough is similar to what its been But his shortness of breath is noticeably worse. Vital signs in the ED showed sinus tachycardia which is common for him. He was tachypneic he was initially started on a nonrebreather but then was placed on vapotherm. In the ED Patient was given Solu-Medrol and breathing treatments. chronci leukocytosis. CTA chest showing severe pulmonary fibrosis unchanged. No PE. No edema noted Patient found to have leukocytosis of 19,000 which is chronic for him. We will check manual differential. 08/07 Ned feels like he is breathing a little better than yesterday. Less short of breath but desats quickly and easily and does take a while to bring it back. He does have typical cough. Tachycardic and tachypneic. Sounds like he had a discussion with [facility] and is likely that he will consider hospice upon discharge. 08/08 No acute events overnight. Patient feeling all right. Slowly and gradually weaning down his oxygen requirements. Has cough and shortness of breath but stable. 08/09 Continues on Vapotherm with a FiO2 of 70%, 50 L/min flow rate. Discussed guarded prognosis and uncertain trajectory of his acute on chronic illness. Patient is considering hospice however wants to continue current cares in hopes that he will improve enough to discharge home. Continues on Solu-Medrol IV. 08/10 Patient continues to Vapotherm with high oxygen requirements, no significant improvement since yesterday. Chest x-ray shows a possible increase in infiltr ates. Added morphine IV as needed for dyspnea. Continue oxygen supplementation with Vapotherm and monitor for improvement in respiratory status. Guarded prognosis. 08/11 Oxygen supplementation modestly improved today. The patient feels like morphine is more effective for him than Ativan for dyspnea. Goals of care discussed with the patient and his at bedside today, all available options were discussed in detail including home hospice, comfort cares in the hospital and continuing with aggressive cares. Patient said he would discuss the options further with his . 08/12 Respiratory status unchanged, the patient said he does not have any questions when I saw him this morning. 08/13 No improvement in respiratory status. The patient is planning to talk to additional family members later today. The patient did not have any questions when I spoke to him this morning. 08/14: Patient is calm, cooperative and has no active complaints or concerns. RN was present at the bedside to discuss plan of care. 08/15: Patient is medically status quo. He is pleasant calm and cooperative. 08/16: No active medical concerns. Completing ongoing legal paperwork 08/17: Awaiting d/c with hospice Review of Systems: Pertinent positives above. Denies headache/fever/chills/nausea/vomiting/chest or abdominal pain/diarrhea. PHYSICAL EXAM General: Alert, Awake, No acute Distress Eyes/N/T: EOMI, no scleral icterus, Head/Neck: neck supple, full ROM, CV: Tachycardic but regular, No murmurs, Pulm: mild fine Rales b/l, no wheezing Abd: soft, nontender, +BS x4 Ext: no clubbing/cyanosis/edema, nontender Neuro: Alert, no focal deficits, moves all extremities, sensations intact b/l upper/lower Psychiatric: Skin: warm/dry, normal color Constitutional Vitals: Vital Signs Temp Pulse Resp BP Pulse Ox O2 Del Method O2 Flow Rate 97.8 F 109 H 25 H 111/92 96 Heated High Flow Nasal Cannula 55 08/17/22 04:00 08/17/22 08:00 08/17/22 08:00 08/17/22 08:00 08/17/22 08:00 08/17/22 08:00 08/17/22 08:00 Period Temp Pulse Resp BP Sys/Ashraf Pulse Ox O2 Del Method O2 Flow Rate Last 24 Hr 97.6 F-98.5 F 78-109 14-28 104-126/85-96 92-99 Heated High Flow Nasal Ca-High Flow Nasal Cannula 50-55 Intake and Output 08/17/22 08/17/22 08/17/22 03:59 11:59 19:59 Intake Total 120 0 Output Total 225 120 Balance -105 -120 Weight 45.631 kg Intake & Output: Intake & Output 08/17/22 08/17/22 08/17/22 03:59 11:59 19:59 Intake Total 120 0 Output Total 225 120 Balance -105 -120 Weight 45.631 kg Intake: Oral 120 0 Output: Void Amount 225 120 Other: Meal Dinner Percent of Meal Consumed 100% Feeding Ability Independent Urine Appearance Clear Clear Urine Color Dark Yellow Yellow Urine Odor Normal OBJ DATA Labs 08/06/22 12:33 08/11/22 05:05 Meds: Medications Acetaminophen (Acetaminophen 325 Mg Tablet) 650 mg PO Q6HP PRN PRN Reason: fever > 101 Last Admin: 08/16/22 20:36 Dose: 650 mg Hydrocodone Bitart/Acetaminophen (Hydrocodone/Apap 5/325mg Tablet) 1 tab PO Q 4HP PRN PRN Reason: PAIN LEVEL 3-6 Last Admin: 08/11/22 21:42 Dose: 1 tab Budesonide (Budesonide 0.5 Mg/2 Ml Ampul.Neb) 0.5 mg NEB Q12 [facility] Last Admin: 08/17/22 08:59 Dose: 0.5 mg Cetirizine HCl (Cetirizine 10 Mg Tablet) 10 mg PO DAILY [facility] Last Admin: 08/17/22 09:33 Dose: 10 mg Diltiazem HCl (Diltiazem 30 Mg Tablet) 30 mg PO TID [facility] Last Admin: 08/17/22 09:34 Dose: 30 mg Diphenhydramine HCl (Diphenhydramine 25 Mg Capsule) 0 mg PO BIDP PRN PRN Reason: Allergic Symptoms Last Admin: 08/16/22 20:35 Dose: 50 mg Docusate Sodium (Docusate Sodium 100 Mg Capsule) 100 mg PO BID [facility] Last Admin: 08/17/22 10:40 Dose: 100 mg Enoxaparin Sodium (Enoxaparin 30 Mg/0.3 Ml Syringe) 30 mg SQ DAILY [facility] Last Admin: 08/17/22 09:33 Dose: 30 mg Fluticasone Propionate (Fluticasone Propionate [place].Lisbeth) 2 spray NS QDAY [facility] Last Admin: 08/17/22 09:33 Dose: 2 spray Potassium Chloride 40 meq/ (Dextrose) 520 mls @ 130 mls/hr IV UD PRN PRN Reason: Potassium Level < 3 Magnesium Sulfate (Magnesium Sulfate) 2 gm in 50 mls @ 25 mls/hr IV UD PRN PRN Reason: Magnesium Level </= 1.6 Ipratropium [place] (Ipratropium 2.5 Ml Ampul.Neb) 2.5 ml NEB Q6HRT [facility] Last Admin: 08/17/22 06:31 Dose: 2.5 ml Levalbuterol HCl (Levalbuterol 1.25 Mg/3 Ml Ampul.Neb) 1.25 mg NEB Q6HRT [facility] Last Admin: 08/17/22 06:31 Dose: 1.25 mg Lidocaine HCl (Lidocaine Viscous 2% 15 Ml Unit Dose Cup) 15 ml PO Q4HP PRN PRN Reason: Sore Throat Last Admin: 08/10/22 22:48 Dose: 15 ml Lorazepam (Lorazepam 0.5 Mg Tablet) 0 mg PO TIDP PRN PRN Reason: anxiety Last Admin: 08/17/22 10:40 Dose: 0.5 mg Methylprednisolone Sodium Succinate (Methylprednisolone Sod Succ 40 Mg/Ml Vial) 40 mg IV Q8 [facility] Last Admin: 08/17/22 05:51 Dose: 40 mg Metoprolol Tartrate (Metoprolol Tartrate 5 Mg/5 Ml Vial) 5 mg IV Q2HP PRN PRN Reason: Tachyarrhythmias HR>110 Last Admin: 08/07/22 13:13 Dose: 5 mg Morphine Sulfate (Morphine 2 Mg/Ml Vial) 2 mg IV Q1HP PRN; Protocol PRN Reason: Anxiety and dyspnea Last Admin: 08/17/22 10:36 Dose: 2 mg Omeprazole (Omeprazole 20 Mg Capsule) 40 mg PO ACB [facility] Last Admin: 08/17/22 09:34 Dose: 40 mg Ondansetron HCl (Ondansetron 4 Mg/2 Ml Vial) 4 mg IV Q4HP PRN PRN Reason: Nausea And Vomiting Umeclidinium- Vilanterol [Anoro Ellipta] 62.5-25 Mcg Inhaler 1 dose INH DAILY [facility] Last Admin: 08/17/22 09:33 Dose: 1 dose Polyethylene Glycol (Polyethylene Glycol 3350 17 Gm Packet) 17 gm PO DAILYP PRN PRN Reason: Constipation Potassium Chloride (Potassium Chloride 20 Meq Tablet) 40 meq PO UD PRN PRN Reason: Potassium Level of 3-3.5 Potassium Chloride (Potassium Chloride 20 Meq Tablet) 40 meq PO UD PRN PRN Reason: Potassium Level < 3 Senna (Sennosides 1 Tablet) 2 tab PO DAILYP PRN PRN Reason: Constipation Last Admin: 08/06/22 20:35 Dose: 2 tab Sodium Chloride (0.9 % Sodium Chloride 10 Ml Syringe) 10 ml IV Q8 [facility] Last Admin: 08/17/22 05:51 Dose: 10 ml Sodium Chloride (Sodium Chloride Nasal 1 [place] Bottle) 2 spray LISBETH Q4HP PRN PRN Reason: Congestion Throat Lozenges (Benzocaine/Menthol 1 Lozenge) 1 lozenge PO PRN PRN PRN Reason: Sore Throat Last Admin: 08/16/22 08:42 Dose: 1 lozenge A/P Narrative A/P Narrative: A: #Acute on chronic hypoxic respiratory failure: 2/2 end-stage pulmonary fibrosis -Flu/Covid, pct low -no reserve, desats extremely easy -on vapotherm 55lpm/60% #End-stage Pulmonary fibrosis exacerbation (at least 10L O2@home): #COPD / Bronchiectasis : #Chronic leukocytosis: #Sinus Tachycardia, chronic: #GERD / Rico's esophagus: #h/o colon cancer #Malnourishment: #Anemia, chronic: #Anxiety: prn ativan #Extremely Guarded prognosis given severe pulmonary fibrosis and multiple hospitalizations #Goals of care: pt hoping to make it until September, but given recent history this may be unlikely Plan: -solumedrol (wean) -Oxygen supplementation wean as able, -Scheduled xopenex/ipratropium and prn nebs, add budesonide nebs -started on PO diltiazem last admit after episode of afib rvr, cont and prn IV lopressor -monitor/trend electrolyte abnormalities -prn Ativan -dietary consult -PT and OT -f/u closely with pulmonology -ppx: Lovenox / ppi Code status: DNR/DNI Time Spent With Patient Time: Total time spent is greater than 50% in coordination of care (as documented) at patient's floor/unit and/or counseling patient: QUALITY Stroke Symptom Onset Unknown: No VTE Deep Vein Thrombosis/Pulmonary Embolism Present on Admission: No
[2022-08-17] MEDS: BENZONATATE 100 MG CAPSULE PO PRN (14:06)
[2022-08-17] MEDS: ACETAMINOPHEN 325 MG TABLET PO PRN (20:47)
[2022-08-17] MEDS: diphenhydrAMINE 25 MG CAPSULE PO PRN (22:07)
[2022-08-18] MEDS: morphine 2 MG/ML VIAL IV PRN ×8 (01:01→22:27)
[2022-08-18] MEDS: LEVALBUTEROL 1.25 MG/3 ML AMPUL.NEB NEB SCH ×4 (01:02→19:21)
[2022-08-18] MEDS: IPRATROPIUM 2.5 ML AMPUL.NEB NEB SCH ×4 (01:02→19:21)
[2022-08-18] MEDS: LORazepam 0.5 MG TABLET PO PRN ×3 (02:20→18:33)
[2022-08-18] MEDS: diphenhydrAMINE 25 MG CAPSULE PO PRN ×2 (03:47→22:26)
[2022-08-18] MEDS: methylPREDNISolone SOD SUCC 40 MG/ML VIAL IV SCH (05:33)
[2022-08-18] MEDS: 0.9 % SODIUM CHLORIDE 10 ML SYRINGE IV SCH ×3 (05:34→22:26)
[2022-08-18] MEDS: OMEPRAZOLE 20 MG CAPSULE PO SCH (07:22)
--- NOTE | 2022-08-18 07:46 | Internal Med Progress Note ---
SUBJECTIVE Subjective Patient information: Note initiated : 08/18/22 at 7:45 am Service Date, if different from initiated Date: [] Patient: Ned Fortune a 57 y/o M admitted on 08/06/22 for Shortness of breath. Chief Complaint: [] Principal diagnosis: Advanced pulmonary fibrosis Interval history: History of present illness: Mr. Fortune is a 57 year old M Presents back to the ED for increased shortness of breath. 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 He has been admitted multiple times since April. He is also had multiple ED visits. He is on 10 L or more with several concentrators of oxygen at home. He is hoping to just make it to his daughters wedding in September. They have had the discussion of moving up the wedding date but it does not seem feasible per family and they say "it is what it is", knowing he will be at the wedding "one way or the other". Patient states for the past couple days he just had increasing oxygen need up to 20 L with all other concentrators. His cough is similar to what its been But his shortness of breath is noticeably worse. Vital signs in the ED showed sinus tachycardia which is common for him. He was tachypneic he was initially started on a nonrebreather but then was placed on vapotherm. In the ED Patient was given Solu-Medrol and breathing treatments. chronci leukocytosis. CTA chest showing severe pulmonary fibrosis unchanged. No PE. No edema noted Patient found to have leukocytosis of 19,000 which is chronic for him. We will check manual differential. 08/07 Ned feels like he is breathing a little better than yesterday. Less short of breath but desats quickly and easily and does take a while to bring it back. He does have typical cough. Tachycardic and tachypneic. Sounds like he had a discussion with [facility] and is likely that he will consider hospice upon discharge. 08/08 No acute events overnight. Patient feeling all right. Slowly and gradually weaning down his oxygen requirements. Has cough and shortness of breath but stable. 08/09 Continues on Vapotherm with a FiO2 of 70%, 50 L/min flow rate. Discussed guarded prognosis and uncertain trajectory of his acute on chronic illness. Patient is considering hospice however wants to continue current cares in hopes that he will improve enough to discharge home. Continues on Solu-Medrol IV. 08/10 Patient continues to Vapotherm with high oxygen requirements, no significant improvement since yesterday. Chest x-ray shows a possible increase in infiltra eda. Added morphine IV as needed for dyspnea. Continue oxygen supplementation with Vapotherm and monitor for improvement in respiratory status. Guarded prognosis. 08/11 Oxygen supplementation modestly improved today. The patient feels like morphine is more effective for him than Ativan for dyspnea. Goals of care discussed with the patient and his at bedside today, all available options were discussed in detail including home hospice, comfort cares in the hospital and continuing with aggressive cares. Patient said he would discuss the options further with his . 08/12 Respiratory status unchanged, the patient said he does not have any questions when I saw him this morning. 08/13 No improvement in respiratory status. The patient is planning to talk to additional family members later today. The patient did not have any questions when I spoke to him this morning. 08/14: Patient is calm, cooperative and has no active complaints or concerns. RN was present at the bedside to discuss plan of care. 08/15: Patient is medically status quo. He is pleasant calm and cooperative. 08/16: No active medical concerns. Completing ongoing legal paperwork 08/17: Awaiting d/c with hospice 08/18 No overnight event or new complaints. Patient chronic 55 L at 90%. Symptoms stable. Review of Systems: Pertinent positives above. Denies headache/fever/chills/nausea/vomiting/chest or abdominal pain/diarrhea. PHYSICAL EXAM General: Alert, Awake, No acute Distress Eyes/N/T: EOMI, no scleral icterus, Head/Neck: neck supple, full ROM, CV: Tachycardic but regular, No murmurs, Pulm: mild fine Rales b/l, no wheezing Abd: soft, nontender, +BS x4 Ext: no clubbing/cyanosis/edema, nontender Neuro: Alert, no focal deficits, moves all extremities, sensations intact b/l upper/lower Psychiatric: Skin: warm/dry, normal color Constitutional Vitals: Vital Signs Temp Pulse Resp BP Pulse Ox O2 Del Method O2 Flow Rate 97.0 F 100 H 15 130/102 90 Heated High Flow Nasal Cannula 55 08/18/22 04:01 08/18/22 06:00 08/18/22 06:00 08/18/22 06:00 08/18/22 07:12 08/18/22 07:12 08/18/22 07:12 Period Temp Pulse Resp BP Sys/Ashraf Pulse Ox O2 Del Method O2 Flow Rate Last 24 Hr 97.0 F-97.9 F 81-113 13-25 111-130/91-103 90-99 Heated High Flow Nasal Ca-Heated High Flow Nasal Ca 55-55 Intake and Output 08/17/22 08/18/22 08/18/22 19:59 03:59 11:59 Intake Total 360 360 Output Total 450 250 250 Balance -90 -250 110 Weight 45.767 kg Intake & Output: Intake & Output 08/17/22 08/18/22 08/18/22 19:59 03:59 11:59 Intake Total 360 360 Output Total 450 250 250 Balance -90 -250 110 Weight 45.767 kg Intake: Oral 360 360 Output: Void Amount 450 250 250 Other: Meal Breakfast Percent of Meal Consumed 100% Feeding Ability Assist with Tray Set Up Urine Appearance Clear Clear Urine Color Dark Yellow Light [place] # Bowel Movements 0 OBJ DATA Labs 08/06/22 12:33 08/11/22 05:05 Meds: Medications Acetaminophen (Acetaminophen 325 Mg Tablet) 650 mg PO Q6HP PRN PRN Reason: fever > 101 Last Admin: 08/17/22 20:47 Dose: 650 mg Hydrocodone Bitart/Acetaminophen (Hydrocodone/Apap 5/325mg Tablet) 1 tab PO Q4HP PRN PRN Reason: PAIN LEVEL 3-6 Last Admin: 08/11/22 21:42 Dose: 1 tab Benzonatate (Benzonatate 100 Mg Capsule) 200 mg PO TIDP PRN PRN Reason: Cough Last Admin: 08/17/22 14:06 Dose: 200 mg Budesonide (Budesonide 0.5 Mg/2 Ml Ampul.Neb) 0.5 mg NEB Q12 [facility] Last Admin: 08/17/22 19:22 Dose: 0.5 mg Cetirizine HCl (Cetirizine 10 Mg Tablet) 10 mg PO DAILY [facility] Last Admin: 08/17/22 09:33 Dose: 10 mg Diltiazem HCl (Diltiazem 30 Mg Tablet) 30 mg PO TID [facility] Last Admin: 08/17/22 20:48 Dose: 30 mg Diphenhydramine HCl (Diphenhydramine 25 Mg Capsule) 0 mg PO BIDP PRN PRN Reason: Allergic Symptoms Last Admin: 08/18/22 03:47 Dose: 50 mg Docusate Sodium (Docusate Sodium 100 Mg Capsule) 100 mg PO BID [facility] Last Admin: 08/17/22 21:08 Dose: Not Given Enoxaparin Sodium (Enoxaparin 30 Mg/0.3 Ml Syringe) 30 mg SQ DAILY [facility] Last Admin: 08/17/22 09:33 Dose: 30 mg Fluticasone Propionate (Fluticasone Propionate [place].Lisbeth) 2 spray NS QDAY [facility] Last Admin: 08/17/22 09:33 Dose: 2 spray Potassium Chloride 40 meq/ (Dextrose) 520 mls @ 130 mls/hr IV UD PRN PRN Reason: Potassium Level < 3 Magnesium Sulfate (Magnesium Sulfate) 2 gm in 50 mls @ 25 mls/hr IV UD PRN PRN Reason: Magnesium Level </= 1.6 Ipratropium [place] (Ipratropium 2.5 Ml Ampul.Neb) 2.5 ml NEB Q6HRT [facility] Last Admin: 08/18/22 01:02 Dose: 2.5 ml Levalbuterol HCl (Levalbuterol 1.25 Mg/3 Ml Ampul.Neb) 1.25 mg NEB Q6HRT [facility] Last Admin: 08/18/22 01:02 Dose: 1.25 mg Lidocaine HCl (Lidocaine Viscous 2% 15 Ml Unit Dose Cup) 15 ml PO Q4HP PRN PRN Reason: Sore Throat Last Admin: 08/10/22 22:48 Dose: 15 ml Lorazepam (Lorazepam 0.5 Mg Tablet) 0 mg PO TIDP PRN PRN Reason: anxiety Last Admin: 08/18/22 02:20 Dose: 0.5 mg Methylprednisolone Sodium Succinate (Methylprednisolone Sod Succ 40 Mg/Ml Vial) 40 mg IV Q8 [facility] Last Admin: 08/18/22 05:33 Dose: 40 mg Metoprolol Tartrate (Metoprolol Tartrate 5 Mg/5 Ml Vial) 5 mg IV Q2HP PRN PRN Reason: Tachyarrhythmias HR>110 Last Admin: 08/07/22 13:13 Dose: 5 mg Morphine Sulfate (Morphine 2 Mg/Ml Vial) 2 mg IV Q1HP PRN; Protocol PRN Reason: Anxiety and dyspnea Last Admin: 08/18/22 05:15 Dose: 2 mg Omeprazole (Omeprazole 20 Mg Capsule) 40 mg PO ACB [facility] Last Admin: 08/18/22 07:22 Dose: 40 mg Ondansetron HCl (Ondansetron 4 Mg/2 Ml Vial) 4 mg IV Q4HP PRN PRN Reason: Nausea And Vomiting Umeclidinium- Vilanterol [Anoro Ellipta] 62.5-25 Mcg Inhaler 1 dose INH DAILY [facility] Last Admin: 08/17/22 09:33 Dose: 1 dose Polyethylene Glycol (Polyethylene Glycol 3350 17 Gm Packet) 17 gm PO DAILYP PRN PRN Reason: Constipation Potassium Chloride (Potassium Chloride 20 Meq Tablet) 40 meq PO UD PRN PRN Reason: Potassium Level of 3-3.5 Potassium Chloride (Potassium Chloride 20 Meq Tablet) 40 meq PO UD PRN PRN Reason: Potassium Level < 3 Senna (Sennosides 1 Tablet) 2 tab PO DAILYP PRN PRN Reason: Constipation Last Admin: 08/06/22 20:35 Dose: 2 tab Sodium Chloride (0.9 % Sodium Chloride 10 Ml Syringe) 10 ml IV Q8 [facility] Last Admin: 08/18/22 05:34 Dose: 10 ml Sodium Chloride (Sodium Chloride Nasal 1 [place] Bottle) 2 spray LISBTEH Q4HP PRN PRN Reason: Congestion Throat Lozenges (Benzocaine/Menthol 1 Lozenge) 1 lozenge PO PRN PRN PRN Reason: Sore Throat Last Admin: 08/16/22 08:42 Dose: 1 lozenge A/P Narrative A/P Narrative: A: #Acute on chronic hypoxic respiratory failure: 2/2 end-stage pulmonary fibrosis -Flu/Covid, pct low -no reserve, desats extremely easy -on vapotherm 55lpm/60% #End-stage Pulmonary fibrosis exacerbation (at least 10L O2@home): #COPD / Bronchiectasis : #Chronic leukocytosis: #Sinus Tachycardia, chronic: #GERD / Rico's esophagus: #h/o colon cancer #Malnourishment: #Anemia, chronic: #Anxiety: prn ativan #Extremely Guarded prognosis given severe pulmonary fibrosis and multiple hospitalizations #Goals of care: pt hoping to make it until September, but given recent history this may be unlikely Plan: -solumedrol (wean) -Oxygen supplementation wean as able, -Scheduled xopenex/ipratropium and prn nebs, add budesonide nebs -started on PO diltiazem last admit after episode of afib rvr, cont and prn IV lopressor -monitor/trend electrolyte abnormalities -prn Ativan -dietary consult -PT and OT -f/u closely with pulmonology -ppx: Lovenox / ppi Code status: DNR/DNI Time Spent With Patient Time: Total time spent is greater than 50% in coordination of care (as documented) at patient's floor/unit and/or counseling patient: Subsequent: Total time with patient: 50 - 65 Minutes QUALITY Stroke Symptom Onset Unknown: No VTE Deep Vein Thrombosis/Pulmonary Embolism Present on Admission: No
[2022-08-18] MEDS: BUDESONIDE 0.5 MG/2 ML AMPUL.NEB NEB SCH ×2 (08:00→19:21)
[2022-08-18] MEDS: DOCUSATE SODIUM 100 MG CAPSULE PO SCH ×2 (08:05→20:30)
[2022-08-18] MEDS: ENOXAPARIN 30 MG/0.3 ML SYRINGE SQ SCH (08:05)
[2022-08-18] MEDS: DILTIAZEM 30 MG TABLET PO SCH ×3 (08:05→20:30)
[2022-08-18] MEDS: Umeclidinium-Vilanterol [Anoro Ellipta] 62.5-25 mcg Inhaler INH SCH (08:06)
[2022-08-18] MEDS: FLUTICASONE PROPIONATE SPRAY.NAS NS SCH (08:06)
[2022-08-18] MEDS: CETIRIZINE 10 MG TABLET PO SCH (08:08)
--- NOTE | 2022-08-18 13:48 | Discharge Summary ---
Discharge Provider Provider IMPORTANT FOLLOW-UP INFORMATION FOR PCP: Patient information: Note initiated : 08/18/22 at 1:46 pm Service Date, if different from initiated Date: [] Patient: Ned Fortune a 57 y/o M admitted on 08/06/22 for Shortness of breath. Chief Complaint: [] Date of admission: 08/06/22 17:32 Primary care physician: HAILEE Multani Consults: 08/06/22 15:09 Consult to Physician [CONS] Stat Comment: Consulting Provider: Josiah Hughes Reason For Exam: Physician to Consult COURSE Hospital Course Hospital course: History of present illness: Mr. Fortune is a 57 year old M Presents back to the ED for increased shortness of breath. 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 He has been admitted multiple times since April. He is also had multiple ED visits. He is on 10 L or more with several concentrators of oxygen at home. He is hoping to just make it to his daughters wedding in September. They have had the discussion of moving up the wedding date but it does not seem feasible per family and they say "it is what it is", knowing he will be at the wedding "one way or the other". Patient states for the past couple days he just had increasing oxygen need up to 20 L with all other concentrators. His cough is similar to what its been But his shortness of breath is noticeably worse. Vital signs in the ED showed sinus tachycardia which is common for him. He was tachypneic he was initially started on a nonrebreather but then was placed on vapotherm. In the ED Patient was given Solu-Medrol and breathing treatments. chronci leukocytosis. CTA chest showing severe pulmonary fibrosis unchanged. No PE. No edema noted Patient found to have leukocytosis of 19,000 which is chronic for him. We will check manual differential. 4/6 Ned feels like he is breathing a little better than yesterday. Less short of breath but desats quickly and easily and does take a while to bring it back. He does have typical cough. Tachycardic and tachypneic. Sounds like he had a discussion with [facility] and is likely that he will consider hospice upon discharge. 4/7 No acute events overnight. Patient feeling all right. Slowly and gradually weaning down his oxygen requirements. Has cough and shortness of breath but stable. 08/09 Continues on Vapotherm with a FiO2 of 70%, 50 L/min flow rate. Discussed guarded prognosis and uncertain trajectory of his acute on chronic illness. Patient is considering hospice however wants to continue current cares in hopes that he will improve enough to discharge home. Continues on Solu-Medrol IV. 08/10 Patient continues to Vapotherm with high oxygen requirements, no significant improvement since yesterday. Chest x-ray shows a possible increase in infiltrates. Added morphine IV as needed for dyspnea. Continue oxygen supplementation with Vapotherm and monitor for improvement in respiratory status. Guarded prognosis. 08/11 Oxygen supplementation modestly improved today. The patient feels like morphine is more effective for him than Ativan for dyspnea. Goals of care discussed with the patient and his at bedside today, all available options were discussed in detail including home hospice, comfort cares in the hospital and continuing with aggressive cares. Patient said he would discuss the options further with his . 08/12 Respiratory status unchanged, the patient said he does not have any questions when I saw him this morning. 08/13 No improvement in respiratory status. The patient is planning to talk to additional family members later today. The patient did not have any questions when I spoke to him this morning. 08/14: Patient is calm, cooperative and has no active complaints or concerns. RN was present at the bedside to discuss plan of care. 08/15: Patient is medically status quo. He is pleasant calm and cooperative. 08/16: No active medical concerns. Completing ongoing legal paperwork 08/17: Awaiting d/c with hospice 08/18 No overnight event or new complaints. Patient chronic 55 L at 90%. Symptoms stable. A: #Acute on chronic hypoxic respiratory failure: 2/2 end-stage pulmonary fibrosis #End-stage Pulmonary fibrosis exacerbation (at least 10L O2@home): #COPD / Bronchiectasis : #Chronic leukocytosis: #Sinus Tachycardia, chronic: #GERD / Rico's esophagus: #h/o colon cancer #Malnourishment: #Anemia, chronic: #Anxiety: prn ativan #Extremely Guarded prognosis given severe pulmonary fibrosis and multiple hospitalizations #Goals of care: pt hoping to make it until September, but given recent history this may be unlikely Plan: -prednisone taper -f/u with Hospice outpt Discharge diagnosis: Acute on chronic hypoxic respiratory failure pulmonary fibrosis Secondary discharge diagnosis: End-stage pulmonary fibrosis as well as bronchiectasis and COPD. Chronic leukocytosis tachycardic sinus tachycardia GERD malnourishment chronic anemia Anxiety Time Spent with Patient Time attestation: Total time spent providing and/or coordinating discharge services: Time spent: Greater than 30 minutes EXAM Constitutional Vitals: Temp Pulse Resp BP Pulse Ox O2 Del Method O2 Flow Rate 97.6 F 122 H 34 H 124/98 97 Heated High Flow Nasal Cannula 55 08/18/22 12:01 08/18/22 13:16 08/18/22 13:16 08/18/22 12:10 08/18/22 13:16 08/18/22 13:16 08/18/22 13:16 Discharge Plan Patient/Caregiver Discharge Instructions Activity: ambulate only with your walker Diet: Regular Diet Activity Restrictions/Additional Instructions: f/u with Hospice Prescriptions: Continued ipratropium-albuterol 0.5 mg-3 mg(2.5 mg base)/3 mL solution for nebulization 3 ml inhalation Q4HRT PRN (Reason: Wheezing) Qty: 100 6RF (DME) Electric mobility scooter See Rx Instructions .Route .MEDSUPPLY Qty: 1 0RF Rx Instructions: Patient unable to ambulate due to severe lung disease. albuterol sulfate 90 mcg/actuation HFA aerosol inhaler 2 puff INHALATION Q4HP PRN (Reason: Shortness Of Breath) Qty: 8.5 2RF umeclidinium 62.5 mcg-vilanterol 25 mcg/actuation powdr for inhalation 62.5-25 mcg/actuation blister with device 1 inh INHALATION Q24H Qty: 60 1RF Rx Instructions: 340B plan. omeprazole 40 mg capsule,delayed release(DR/EC) 40 mg PO QDAY Qty: 90 1RF lorazepam [Ativan] 0.5 mg tablet 0.5 mg PO .COMPLEX PRN (Reason: anxiety) Qty: 90 0RF Patient Comments: Had 2 does on 07/18/22 per family report Rx Instructions: 0.5 mg orally 1-2 tabs three times a day as needed PRN; cetirizine 10 mg capsule 10 mg PO QDAY Rx Instructions: qd diphenhydramine HCl [Benadryl Allergy] 25 mg tablet 25 - 50 mg PO BID PRN (Reason: Runny Nose) Patient Comments: told RN that he," had 50 mg in the am 07/18 and 50 mg in the pm 07/18, as his nose has been running quite a bit lately." Rx Instructions: Pt states takes at 1800 and 2009 budesonide 0.5 mg/2 mL suspension for nebulization 0.5 mg inhalation Q12 Qty: 60 4RF prednisone 10 mg tablet 10 mg PO QDAY Qty: 40 0RF Rx Instructions: Take prednisone 40 mg daily for 3 days followed by prednisone 30 mg daily for 3 days followed by prednisone 20 mg for 3 days then resume prednisone 10 mg daily until you follow-up with pulmonology for further dosing instructions. fluticasone propionate [24 Hour Allergy Relief] 50 mcg/actuation spray,suspension 2 spray intranasal QDAY Qty: 16 0RF Rx Instructions: administer into each nostril diltiazem HCl 30 mg Tablet 30 mg PO TID Qty: 180 0RF Follow Up Plan Follow up with: Liane Howell ARNP [Primary Care Provider] - Prognosis: Serious QUALITY VTE Deep Vein Thrombosis/Pulmonary Embolism Present on Admission: No
[2022-08-18] MEDS: predniSONE 20 MG TABLET PO SCH (17:05)
[2022-08-18] MEDS: ACETAMINOPHEN 325 MG TABLET PO PRN (20:31)
[2022-08-18] MEDS: BENZONATATE 100 MG CAPSULE PO PRN (22:26)
[2022-08-19] MEDS: morphine 2 MG/ML VIAL IV PRN ×4 (01:22→08:45)
[2022-08-19] MEDS: LEVALBUTEROL 1.25 MG/3 ML AMPUL.NEB NEB SCH ×2 (01:39→07:35)
[2022-08-19] MEDS: IPRATROPIUM 2.5 ML AMPUL.NEB NEB SCH ×2 (01:39→07:35)
[2022-08-19] MEDS: diphenhydrAMINE 25 MG CAPSULE PO PRN (02:15)
[2022-08-19] MEDS: BENZONATATE 100 MG CAPSULE PO PRN (02:41)
[2022-08-19] MEDS: LORazepam 0.5 MG TABLET PO PRN (02:48)
[2022-08-19] MEDS: 0.9 % SODIUM CHLORIDE 10 ML SYRINGE IV SCH (05:37)
[2022-08-19] MEDS: BUDESONIDE 0.5 MG/2 ML AMPUL.NEB NEB SCH (07:35)
--- NOTE | 2022-08-19 07:58 | Internal Med Progress Note ---
SUBJECTIVE Subjective Patient information: Note initiated : 08/19/22 at 7:57 am Service Date, if different from initiated Date: [] Patient: Ned Fortune a 57 y/o M admitted on 08/06/22 for Shortness of breath. Chief Complaint: [] Principal diagnosis: Advanced pulmonary fibrosis Interval history: History of present illness: Mr. Fortune is a 57 year old M Presents back to the ED for increased shortness of breath. 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 He has been admitted multiple times since April. He is also had multiple ED visits. He is on 10 L or more with several concentrators of oxygen at home. He is hoping to just make it to his daughters wedding in September. They have had the discussion of moving up the wedding date but it does not seem feasible per family and they say "it is what it is", knowing he will be at the wedding "one way or the other". Patient states for the past couple days he just had increasing oxygen need up to 20 L with all other concentrators. His cough is similar to what its been But his shortness of breath is noticeably worse. Vital signs in the ED showed sinus tachycardia which is common for him. He was tachypneic he was initially started on a nonrebreather but then was placed on vapotherm. In the ED Patient was given Solu-Medrol and breathing treatments. chronci leukocytosis. CTA chest showing severe pulmonary fibrosis unchanged. No PE. No edema noted Patient found to have leukocytosis of 19,000 which is chronic for him. We will check manual differential. 08/07 Ned feels like he is breathing a little better than yesterday. Less short of breath but desats quickly and easily and does take a while to bring it back. He does have typical cough. Tachycardic and tachypneic. Sounds like he had a discussion with [facility] and is likely that he will consider hospice upon discharge. 08/08 No acute events overnight. Patient feeling all right. Slowly and gradually weaning down his oxygen requirements. Has cough and shortness of breath but stable. 08/09 Continues on Vapotherm with a FiO2 of 70%, 50 L/min flow rate. Discussed guarded prognosis and uncertain trajectory of his acute on chronic illness. Patient is considering hospice however wants to continue current cares in hopes that he will improve enough to discharge home. Continues on Solu-Medrol IV. 08/10 Patient continues to Vapotherm with high oxygen requirements, no significant improvement since yesterday. Chest x-ray shows a possible increase in infiltra eda. Added morphine IV as needed for dyspnea. Continue oxygen supplementation with Vapotherm and monitor for improvement in respiratory status. Guarded prognosis. 08/11 Oxygen supplementation modestly improved today. The patient feels like morphine is more effective for him than Ativan for dyspnea. Goals of care discussed with the patient and his at bedside today, all available options were discussed in detail including home hospice, comfort cares in the hospital and continuing with aggressive cares. Patient said he would discuss the options further with his . 08/12 Respiratory status unchanged, the patient said he does not have any questions when I saw him this morning. 08/13 No improvement in respiratory status. The patient is planning to talk to additional family members later today. The patient did not have any questions when I spoke to him this morning. 08/14: Patient is calm, cooperative and has no active complaints or concerns. RN was present at the bedside to discuss plan of care. 08/15: Patient is medically status quo. He is pleasant calm and cooperative. 08/16: No active medical concerns. Completing ongoing legal paperwork 08/17: Awaiting d/c with hospice 08/18 No overnight event or new complaints. Patient chronic 55 L at 90%. Symptoms stable. 08/19 Patient really becoming noticeably even more gaunt and significantly weaker. Goals of care discussion should take place if we do not have placement for him soon. Patient's oxygen requirements needs continue to increase and now is on 100% FiO2 overnight. Symptoms similar to previous. Review of Systems: Pertinent positives above. Denies headache/fever/chills/nausea/vomiting/chest or abdominal pain/diarrhea. PHYSICAL EXAM General: Alert, Awake, No acute Distress Eyes/N/T: EOMI, no scleral icterus, Head/Neck: neck supple, full ROM, CV: Tachycardic but regular, No murmurs, Pulm: mild fine Rales b/l, no wheezing Abd: soft, nontender, +BS x4 Ext: no clubbing/cyanosis/edema, nontender Neuro: Alert, no focal deficits, moves all extremities, sensations intact b/l upper/lower Psychiatric: Skin: warm/dry, normal color Constitutional Vitals: Vital Signs Temp Pulse Resp BP Pulse Ox O2 Del Method O2 Flow Rate 97.6 F 106 H 18 110/88 96 Non-Rebreather Mask, Heated High Flow Nasal Cannula 55 08/19/22 04:00 08/19/22 07:36 08/19/22 07:36 08/19/22 06:01 08/19/22 07:36 08/19/22 07:36 08/19/22 07:36 Period Temp Pulse Resp BP Sys/Ashraf Pulse Ox O2 Del Method O2 Flow Rate Last 24 Hr 97.6 F-98.0 F 85-123 16-38 103-145/86-111 91-100 Heated High Flow Nasal Dl-Blw-Kjrgncpinn Mask, Heated High Flow Nasal Ca 55-55 Intake and Output 08/18/22 08/19/22 08/19/22 19:59 03:59 11:59 Intake Total 400 Output Total 125 450 Balance 400 -125 -450 Intake & Output: Intake & Output 08/18/22 08/19/22 08/19/22 19:59 03:59 11:59 Intake Total 400 Output Total 125 450 Balance 400 -125 -450 Intake: Oral 400 Output: Void Amount 125 450 Other: Meal Dinner Percent of Meal Consumed 50% Urine Appearance Clear Clear Clear Urine Color Dark Antonette Dark Antonette Dark Yellow Urine Odor Normal OBJ DATA Labs 08/06/22 12:33 08/11/22 05:05 Meds: Medications Acetaminophen (Acetaminophen 325 Mg Tablet) 650 mg PO Q6HP PRN PRN Reason: fever > 101 Last Admin: 08/18/22 20:31 Dose: 650 mg Hydrocodone Bitart/Acetaminophen (Hydrocodone/Apap 5/325mg Tablet) 1 tab PO Q4HP PRN PRN Reason: PAIN LEVEL 3-6 Last Admin: 08/11/22 21:42 Dose: 1 tab Benzonatate (Benzonatate 100 Mg Capsule) 200 mg PO TIDP PRN PRN Reason: Cough Last Admin: 08/19/22 02:41 Dose: 200 mg Budesonide (Budesonide 0.5 Mg/2 Ml Ampul.Neb) 0.5 mg NEB Q12 NANCY Last Admin: 08/19/22 07:35 Dose: 0.5 mg Cetirizine HCl (Cetirizine 10 Mg Tablet) 10 mg PO DAILY NANCY Last Admin: 08/18/22 08:08 Dose: 10 mg Diltiazem HCl (Diltiazem 30 Mg Tablet) 30 mg PO TID [facility] Last Admin: 08/18/22 20:30 Dose: 30 mg Diphenhydramine HCl (Diphenhydramine 25 Mg Capsule) 0 mg PO BIDP PRN PRN Reason: Allergic Symptoms Last Admin: 08/19/22 02:15 Dose: 50 mg Docusate Sodium (Docusate Sodium 100 Mg Capsule) 100 mg PO BID [facility] Last Admin: 08/18/22 20:30 Dose: 100 mg Enoxaparin Sodium (Enoxaparin 30 Mg/0.3 Ml Syringe) 30 mg SQ DAILY [facility] Last Admin: 08/18/22 08:05 Dose: 30 mg Fluticasone Propionate (Fluticasone Propionate [place].Lisbeth) 2 spray NS QDAY [facility] Last Admin: 08/18/22 08:06 Dose: 2 spray Potassium Chloride 40 meq/ (Dextrose) 520 mls @ 130 mls/hr IV UD PRN PRN Reason: Potassium Level < 3 Magnesium Sulfate (Magnesium Sulfate) 2 gm in 50 mls @ 25 mls/hr IV UD PRN PRN Reason: Magnesium Level </= 1.6 Ipratropium [place] (Ipratropium 2.5 Ml Ampul.Neb) 2.5 ml NEB Q6HRT [facility] Last Admin: 08/19/22 07:35 Dose: 2.5 ml Levalbuterol HCl (Levalbuterol 1.25 Mg/3 Ml Ampul.Neb) 1.25 mg NEB Q6HRT [facility] Last Admin: 08/19/22 07:35 Dose: 1.25 mg Lidocaine HCl (Lidocaine Viscous 2% 15 Ml Unit Dose Cup) 15 ml PO Q4HP PRN PRN Reason: Sore Throat Last Admin: 08/10/22 22:48 Dose: 15 ml Lorazepam (Lorazepam 0.5 Mg Tablet) 0 mg PO TIDP PRN PRN Reason: anxiety Last Admin: 08/19/22 02:48 Dose: 0.5 mg Metoprolol Tartrate (Metoprolol Tartrate 5 Mg/5 Ml Vial) 5 mg IV Q2HP PRN PRN Reason: Tachyarrhythmias HR>110 Last Admin: 08/07/22 13:13 Dose: 5 mg Morphine Sulfate (Morphine 2 Mg/Ml Vial) 2 mg IV Q1HP PRN; Protocol PRN Reason: Anxiety and dyspnea Last Admin: 08/19/22 07:30 Dose: 2 mg Omeprazole (Omeprazole 20 Mg Capsule) 40 mg PO ACB [facility] Last Admin: 08/18/22 07:22 Dose: 40 mg Ondansetron HCl (Ondansetron 4 Mg/2 Ml Vial) 4 mg IV Q4HP PRN PRN Reason: Nausea And Vomiting Umeclidinium- Vilanterol [Anoro Ellipta] 62.5-25 Mcg Inhaler 1 dose INH DAILY [facility] Last Admin: 08/18/22 08:06 Dose: 1 dose Polyethylene Glycol (Polyethylene Glycol 3350 17 Gm Packet) 17 gm PO DAILYP PRN PRN Reason: Constipation Potassium Chloride (Potassium Chloride 20 Meq Tablet) 40 meq PO UD PRN PRN Reason: Potassium Level of 3-3.5 Potassium Chloride (Potassium Chloride 20 Meq Tablet) 40 meq PO UD PRN PRN Reason: Potassium Level < 3 Prednisone (Prednisone 20 Mg Tablet) 40 mg PO BIDCC [facility] Last Admin: 08/18/22 17:05 Dose: 40 mg Senna (Sennosides 1 Tablet) 2 tab PO DAILYP PRN PRN Reason: Constipation Last Admin: 08/06/22 20:35 Dose: 2 tab Sodium Chloride (0.9 % Sodium Chloride 10 Ml Syringe) 10 ml IV Q8 [facility] Last Admin: 08/19/22 05:37 Dose: 10 ml Sodium Chloride (Sodium Chloride Nasal 1 [place] Bottle) 2 spray LISBETH Q4HP PRN PRN Reason: Congestion Throat Lozenges (Benzocaine/Menthol 1 Lozenge) 1 lozenge PO PRN PRN PRN Reason: Sore Throat Last Admin: 08/16/22 08:42 Dose: 1 lozenge A/P Narrative A/P Narrative: A: #Acute on chronic hypoxic respiratory failure: 2/2 end-stage pulmonary fibrosis -Flu/Covid, pct low -no reserve, desats extremely easy -on vapotherm 55lpm/100%, was on 90% yesterday #End-stage Pulmonary fibrosis exacerbation (at least 10L O2@home): #COPD / Bronchiectasis : #Chronic leukocytosis: #Sinus Tachycardia, chronic: #GERD / Rico's esophagus: #h/o colon cancer #Malnourishment: #Anemia, chronic: #Anxiety: prn ativan #Extremely Guarded prognosis given severe pulmonary fibrosis and multiple hospitalizations #Goals of care: pt hoping to make it until September, but given recent history this may be unlikely Plan: -solumedrol (wean) -Oxygen supplementation wean as able, -Scheduled xopenex/ipratropium and prn nebs, add budesonide nebs -started on PO diltiazem last admit after episode of afib rvr, cont and prn IV lopressor -monitor/trend electrolyte abnormalities -prn Ativan -dietary consult -PT and OT -f/u closely with pulmonology -CM for placement and hospice -ppx: Lovenox / ppi Code status: DNR/DNI Time Spent With Patient Time: Total time spent is greater than 50% in coordination of care (as documented) at patient's floor/unit and/or counseling patient: Subsequent: Total time with patient: 50 - 65 Minutes QUALITY Stroke Symptom Onset Unknown: No VTE Deep Vein Thrombosis/Pulmonary Embolism Present on Admission: No
[2022-08-19] MEDS: Umeclidinium-Vilanterol [Anoro Ellipta] 62.5-25 mcg Inhaler INH SCH (08:46)
[2022-08-19] MEDS: FLUTICASONE PROPIONATE SPRAY.NAS NS SCH (08:46)
[2022-08-19] MEDS: DILTIAZEM 30 MG TABLET PO SCH (08:46)
[2022-08-19] MEDS: predniSONE 20 MG TABLET PO SCH (08:46)
[2022-08-19] MEDS: ENOXAPARIN 30 MG/0.3 ML SYRINGE SQ SCH (08:46)
[2022-08-19] MEDS: OMEPRAZOLE 20 MG CAPSULE PO SCH (08:47)
[2022-08-19] MEDS: DOCUSATE SODIUM 100 MG CAPSULE PO SCH (09:02)
[2022-08-19] MEDS: CETIRIZINE 10 MG TABLET PO SCH (09:03)
[2022-08-19] MEDS ORDERED: ONDANSETRON 4 MG ODT TABLET SL PRN (12:53)
[2022-08-19] MEDS ORDERED: LACTOPEROXI/GLUC OXID/POT THIO 1 EACH GEL..EA. TOPICAL PRN (12:53)
[2022-08-19] MEDS ORDERED: morphine 4 MG/ML VIAL NEB PRN (12:53)
[2022-08-19] MEDS: morphine 4 MG/ML VIAL IV PRN ×4 (13:21→17:05)
[2022-08-19] MEDS ORDERED: 0.9 % SODIUM CHLORIDE 10 ML SYRINGE IV SCH (14:00)
[2022-08-19] MEDS: LORazepam 2 MG/ML VIAL IV PRN ×3 (15:32→17:20)
--- NOTE | 2022-08-19 19:14 | Death Note ---
Discharge Sum: Prov Provider Patient information: Note initiated : 08/19/22 at 7:12 pm Service Date, if different from initiated Date: [] Patient: Ned Fortune a 57 y/o M admitted on 08/06/22 for Shortness of breath. Chief Complaint: [] Primary care physician: HAILEE Multani Consults: 08/06/22 15:09 Consult to Physician [CONS] Stat Comment: Consulting Provider: Josiah Hughes Reason For Exam: Physician to Consult Discharge Sum: Summary Date and Time Date of admission: 08/06/22 17:32 Date of : 08/19/22 Time of : 17:40 Summary Details: History of present illness: Mr. Fortune is a 57 year old M Presents back to the ED for increased shortness of breath. 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 He has been admitted multiple times since April. He is also had multiple ED visits. He is on 10 L or more with several concentrators of oxygen at home. He is hoping to just make it to his daughters wedding in September. They have had the discussion of moving up the wedding date but it does not seem feasible per family and they say "it is what it is", knowing he will be at the wedding "one way or the other". Patient states for the past couple days he just had increasing oxygen need up to 20 L with all other concentrators. His cough is similar to what its been But his shortness of breath is noticeably worse. Vital signs in the ED showed sinus tachycardia which is common for him. He was tachypneic he was initially started on a nonrebreather but then was placed on vapotherm. In the ED Patient was given Solu-Medrol and breathing treatments. chronci leukocytosis. CTA chest showing severe pulmonary fibrosis unchanged. No PE. No edema noted Patient found to have leukocytosis of 19,000 which is chronic for him. We will check manual differential. / Ned feels like he is breathing a little better than yesterday. Less short of breath but desats quickly and easily and does take a while to bring it back. He does have typical cough. Tachycardic and tachypneic. Sounds like he had a discussion with [facility] and is likely that he will consider hospice upon discharge. 08/08 No acute events overnight. Patient feeling all right. Slowly and gradually weaning down his oxygen requirements. Has cough and shortness of breath but stable. 08/09 Continues on Vapotherm with a FiO2 of 70%, 50 L/min flow rate. Discussed guarded prognosis and uncertain trajectory of his acute on chronic illness. Patient is considering hospice however wants to continue current cares in hopes that he will improve enough to discharge home. Continues on Solu-Medrol IV. 08/10 Patient continues to Vapotherm with high oxygen requirements, no significant improvement since yesterday. Chest x-ray shows a possible increase in infiltrates. Added morphine IV as needed for dyspnea. Continue oxygen supplementation with Vapotherm and monitor for improvement in respiratory status. Guarded prognosis. 08/11 Oxygen supplementation modestly improved today. The patient feels like morphine is more effective for him than Ativan for dyspnea. Goals of care discussed with the patient and his at bedside today, all available options were discussed in detail including home hospice, comfort cares in the hospital and continuing with aggressive cares. Patient said he would discuss the options further with his . 08/12 Respiratory status unchanged, the patient said he does not have any questions when I saw him this morning. 08/13 No improvement in respiratory status. The patient is planning to talk to additional family members later today. The patient did not have any questions when I spoke to him this morning. 08/14: Patient is calm, cooperative and has no active complaints or concerns. RN was present at the bedside to discuss plan of care. 08/15: Patient is medically status quo. He is pleasant calm and cooperative. 08/16: No active medical concerns. Completing ongoing legal paperwork 08/17: Awaiting d/c with hospice 08/18 No overnight event or new complaints. Patient chronic 55 L at 90%. Symptoms stable. 08/19 Patient really becoming noticeably even more gaunt and significantly weaker. Goals of care discussion should take place if we do not have placement for him soon. Patient's oxygen requirements needs continue to increase and now is on 100% FiO2 overnight. Symptoms similar to previous. Given the continued decline and even more significant decline over the past 24 hours. Patient is on 100% FiO2 with 55 to 60 L/min which is still not controll ing his symptoms and intermittent desaturations. We had a care conference with the patient and the today and discussed the futility of where we are at and that we cannot offer any more support. His body is continuing to decline and more rapidly now. Medical therapies are futile and patient is barely being kept alive artificially with max oxygen support. I discussed comfort care with patient and the family and what this entails. The patient and feel that it is time to transition to comfort care only. will call and family members will come in to visit and once family has had time with Ned then we will transition to straight comfort care only. Patient at 1740 with family at bedside A: #Acute on chronic hypoxic respiratory failure: 2/2 end-stage pulmonary fibrosis #End-stage Pulmonary fibrosis exacerbation (at least 10L O2@home): #COPD / Bronchiectasis : #Chronic leukocytosis: #Sinus Tachycardia, chronic: #GERD / Rico's esophagus: #h/o colon cancer #Malnourishment: #Anemia, chronic: #Anxiety: Additional Data Attending physician: Josiah Hughes
[2022-08-19] MEDS ORDERED: DOCUSATE SODIUM 100 MG CAPSULE PO SCH (21:00)
[2022-08-20] MEDS ORDERED: predniSONE 20 MG TABLET PO SCH (09:00)
== END 2022-08-20 02:04 | disposition expired | DRG 189 ==
LOC: ED 11:51 → ICU 17:32
PROVIDERS: ADMIT Internal Medicine; ATTEND Internal Medicine